=== PATIENT | female | born 1955 | race Caucasian/White ===

== ENCOUNTER 2020-02-28 08:16 | Outpatient (CLI) | payer OTHER, SELFPAY ==
--- NOTE | 2020-02-28 11:00 | NEURO_ITS ---
Patient Number: [id number] Impression: # Complains of numbness of hands. # Bilateral Carpal Tunnel Syndrome, left more than right. # No ulnar neuropathy. # Normal needle/EMG exam. # Clinical correlation recommended. Nerve Conduction Studies Anti Sensory Summary Table Stim Site NR Peak (ms) P-T Amp (?V) Site1 Site2 Delta-P (ms) Dist (cm) Amaury (m/s) Left Median Anti Sensory (2-3nd Digit) Wrist 3.5 25.8 Wrist 2-3nd Digit 3.5 14.0 40 Wrist 3.6 33.1 Wrist 2-3nd Digit 3.5 14.0 40 Right Median Anti Sensory (2-3nd Digit) Wrist 3.3 17.9 Wrist 2-3nd Digit 3.3 14.0 42 Wrist 3.4 33.3 Wrist 2-3nd Digit 3.3 14.0 42 Left Radial Anti Sensory (Base 1st Digit) Wrist 1.9 10.3 Wrist Base 1st Digit 1.9 0.0 Right Radial Anti Sensory (Base 1st Digit) Wrist 1.9 12.5 Wrist Base 1st Digit 1.9 0.0 Left Ulnar Anti Sensory (5th Digit) Wrist 2.3 51.8 Wrist 5th Digit 2.3 14.0 61 Right Ulnar Anti Sensory (5th Digit) Wrist 2.3 48.8 Wrist 5th Digit 2.3 14.0 61 Motor Summary Table Stim Site NR Onset (ms) O-P Amp (mV) Site1 Site2 Delta-0 (ms) Dist (cm) Amaury (m/s) Left Median Motor (Abd Poll Brev) Wrist 3.8 2.1 Elbow Wrist 4.2 24.0 57 Elbow 8.0 1.8 Right Median Motor (Abd Poll Brev) Wrist 3.4 3.7 Elbow Wrist 4.5 25.0 56 Elbow 7.9 3.2 Left Ulnar Motor (Abd Dig Minimi) Wrist 2.0 6.3 A Elbow Wrist 4.5 27.0 60 A Elbow 6.5 4.9 Right Ulnar Motor (Abd Dig Minimi) Wrist 2.3 5.1 A Elbow Wrist 4.3 26.0 60 A Elbow 6.6 4.4 F Wave Studies NR F-Lat (ms) L-R F-Lat (ms) Left Median (Mrkrs) (Abd Poll Brev) 26.78 0.20 Right Median (Mrkrs) (Abd Poll Brev) 26.58 0.20 Left Ulnar (Mrkrs) (Abd Dig Min) 25.80 1.07 Right Ulnar (Mrkrs) (Abd Dig Min) 26.88 1.07 EMG Side Muscle Nerve Root Ins Act Fibs Amp Dur Recrt Comment Right 1stDorInt Ulnar C8-T1 Nml Nml Nml Nml Nml Right Ext Indicis Radial (Post Int) C7-8 Nml Nml Nml Nml Nml Right Ext Digitorum Radial (Post Int) C7-8 Nml Nml Nml Nml Nml Right BrachioRad Radial C5-6 Nml Nml Nml Nml Nml Right PronatorTeres Median C6-7 Nml Nml Nml Nml Nml Right Abd Poll Brev Median C8-T1 Nml Nml Nml Nml Nml Left 1stDorInt Ulnar C8-T1 Nml Nml Nml Nml Nml Left Ext Indicis Radial (Post Int) C7-8 Nml Nml Nml Nml Nml Left Ext Digitorum Radial (Post Int) C7-8 Nml Nml Nml Nml Nml Left BrachioRad Radial C5-6 Nml Nml Nml Nml Nml Left PronatorTeres Median C6-7 Nml Nml Nml Nml Nml Left Abd Poll Brev Median C8-T1 Nml Nml Nml Nml Nml Right ABD Dig Min Ulnar C8-T1 Nml Nml Nml Nml Nml Left ABD Dig Min Ulnar C8-T1 Nml Nml Nml Nml Nml Right [place] Radial C7-8 Nml Nml Nml Nml Nml Right Brachialis Musculocut C5-6 Nml Nml Nml Nml Nml Left [place] Radial C7-8 Nml Nml Nml Nml Nml Left Brachialis Musculocut C5-6 Nml Nml Nml Nml Nml MTDD
== END 2020-02-28 08:17 | disposition home or self-care (01) ==
PROVIDERS: PCP Internal Medicine; Visit Provider Internal Medicine
DX: G56.03 Carpal tunnel syndrome, bilateral upper limbs (principal)
CPT/HCPCS: 95886; 95911

== ENCOUNTER 2021-11-02 23:08 | Emergency (ER) | payer MEDICARE, OTHER, SELFPAY ==
--- NOTE | ~2021-11-02 | CT_ITS ---
EXAMINATION: CTA chest PE protocol DATE: 11/03/2021 01:33 INDICATION: Left-sided chest pain TECHNIQUE: Computed tomography angiography (CTA) of the chest was performed with 100 mL Omnipaque-350 intravenous contrast timed to evaluate the pulmonary arteries. Coronal maximum intensity projection 3D-reconstructions were created by the technologist. Automated exposure control and iterative reconst ruction technique were employed. Exam dose: 256.43 mGy-cm total exam DLP. COMPARISON: 11/02/2021 2 view chest FINDINGS: There is diagnostic contrast enhancement of the pulmonary arteries and no evidence of pulmo nary embolism. Status post sternotomy. There is atherosclerotic calcification of the thoracic aorta, great vessels and coronary arteries. No thoracic aortic aneurysm. Normal heart size. No pericardial or pleural effusion. No hilar or mediastinal mass lesion or lymphadenopathy. Normal morphology of the adrenal glands. Status post cholecystectomy. Approximately 1.3 cm upper pole left renal probable cyst No pulmonary consolidation or pulmonary mass lesion. Scattered atelectasis. IMPRESSION: No evidence of pulmonary embolism Reviewed, dictated and finalized at [facility]. Reviewed, dictated and finalized at [facility].
--- NOTE | ~2021-11-02 | XR_ITS ---
EXAMINATION: XR chest 2V DATE: 11/03/2021 00:02 INDICATION: Chest pain TECHNIQUE: PA and lateral views of the chest were obtained. COMPARISON: Chest CT dated 11/03/2021 FINDINGS: The lungs are clear with no focal airspace opacities, pulmonary edema, pleural effusion or pneumothor ax. The cardiomediastinal silhouette is normal. Cholecystectomy clips in right upper quadrant. Median sternotomy wires and mediastinal surgical clips are seen, likely from prior coronary artery bypass g rafting. Additional surgical clips in the right infraclavicular region. IMPRESSION: 1. No acute cardiopulmonary disease. Reviewed, dictated and finalized at [facility].
--- NOTE | 2021-11-02 23:09 | ECG_ITS ---
Measurements Intervals [place] Rate: 61 P: 74 PA: 195 QRS: 64 QRSD: 93 T: 60 QT: 443 QTc: 448 Interpretive Statements SINUS RHYTHM BASELINE ARTIFACT- I, II, AVR NORMAL ECG Electronically Signed On 11-03-2021 6:23:33 CDT by Louie Ochoa D.O.
[2021-11-02 23:29] LABS: Basophils Absolute Auto 0.1 K/mm3 (0.0-0.1); Basophils Percent Auto 0.5 % (0.2-1.2); Eosinophils Absolute Auto 0.4 K/mm3 (0-0.3); Eosinophils Percent Auto 3.8 % (0-4.4); Hematocrit 40.3 % (37.0-47.0); Hemoglobin 13.2 g/dL (12.0-15.0); Immature Granulocyte Absolute 0.03 K/mm3 (0.00-0.031); Immature Granulocyte Percent A 0.3 % (0-0.5); Lymphocytes Absolute Auto 3.94 K/mm3 (0.9-3.2); Lymphocytes Percent Auto 34.7 % (18.3-44.2); Mean Corpuscular HGB Conc 32.8 g/dl (32-36); Mean Corpuscular Hemoglobin 30.3 pg (26-34); Mean Corpuscular Volume 92.6 fl (80-100); Mean Platelet Volume 11.2 fl (7.4-10.4); Monocytes Absolute Auto 0.9 K/mm3 (0.1-0.6); Monocytes Percent Auto 7.5 % (2.6-8.5); Neutrophils Percent Auto 53.2 % (45.5-73.1); Platelet Count Result 193 k/mm3 (150-375); Red Blood Count 4.35 M/mm3 (4.2-5.4); Red Cell Distribution Width 13.4 % (11.5-14.5); White Blood Count 11.4 K/mm3 (4.5-10.0)
[2021-11-02 23:33] VITALS: BP 202/98; PULSE 62; RESP 14; O2SAT 96
[2021-11-02 23:37] VITALS: PULSE 62
[2021-11-02 23:39] LABS: Alanine Aminotransferase 15 U/L (6-35); Albumin Level 4.3 g/dL (3.5-5.1); Alkaline Phosphatase 93 U/L (38-126); Anion Gap 3 mmol/L (8-16); Aspartate Amino Transferase 23 U/L (14-36); Bilirubin,Total 0.3 mg/dL (0.2-1.3); Blood Urea Nitrogen 23 mg/dL (7-17); Carbon Dioxide 26 mmol/L (22-30); Chloride 109 mmol/L (98-107); Estimated CRCL calculation 73 ml/min; Estimated Glomerular Filt Rate > 60; Glucose 101 mg/dL (65-110); INR 0.9; Lipase 255 U/L (23-300); Potassium 4.1 mmol/L (3.4-5.0); Prothrombin Time 12.1 Seconds (11.1-14.7); Sodium 138 mmol/L (137-145)
[2021-11-02 23:40] LABS: Partial Thromboplastin Time 34.5 SECONDS (22.3-36.8)
[2021-11-02 23:50] LABS: Troponin I < 0.012 ng/mL (0.000-0.034)
--- NOTE | 2021-11-03 00:36 | ED.CHESTPAIN ---
HPI - Chest Pain General Chief Complaint: Chest Pain Stated Complaint: chest pain Time Seen by Provider: 11/02/21 23:19 History of Present Illness HPI narrative: 66-year-old female presented to the emergency department for evaluation of left lower rib pain. Patient states over the last 2 to 3 days she has had increased rib pain with some associated shortness of breath. Patient states that the rib pain is constant and does not worsen or improve with movement or rest. Patient does have a history of peripheral vascular disease. Patient has 3 stents in her heart with the most recent being approximately 10 years ago. Patient reports she does have left calf pain as well, 2 to 3 days ago. Denies any prior history of PE or DVT. Patient denies any falls or injuries Related Data Allergies Allergy/AdvReac Type Severity Reaction Status Date / Time No Known Allergies Allergy Verified 11/02/21 23:38 Review of Systems Review of Systems: CONSTITUTIONAL: Denies fever, chills, or sweats. EYES: Denies visual changes, redness, or discharge. ENT: Denies rhinorrhea, congestion, sore throat, or otalgia. CARDIOVASCULAR: See HPI RESPIRATORY: Denies cough or dyspnea. GASTROINTESTINAL: Denies abdominal pain, nausea, vomiting, or diarrhea. GENITOURINARY: Denies dysuria or hematuria. SKIN: Denies rash or itching. MUSCULOSKELETAL: Denies back pain, joint pain, or myalgia. NEUROLOGIC: Denies headache, numbness, or weakness. ON LICENSE OF [facility] Family History Family History (Updated 11/28/15 @ 23:19 by DOCTOR UNKNOWN) Sibling Family history of elevated blood lipids Family history of diabetes mellitus in first degree relative Family history of malignant neoplasm of cervix Family history of coronary artery disease, Onset Age: 60 Family history of heart disease in male family member before age 55 Patient's sister is Father Family history of heart disease in male family member before age 55 Grandparent Diabetes mellitus Social History Social History Second hand tobacco smoke exposure: No Smoking end date: 05/02/97 Alcohol intake: current Exam Narrative: APPEARANCE: Well appearing, no pain, no distress, well-nourished. HEAD: normocephalic, atraumatic. EYES: PERRLA/EOMI, conjunctivae clear. NOSE: Normal no drainage THROAT: Pharynx clear, no exudate. NECK: Supple. No adenopathy, no masses. RESPIRATORY: Airway patent, respirations nonlabored. Clear to auscultation bilaterally, no rales, rhonchi, wheezing. CARDIOVASCULAR: Regular rate and rhythm without murmurs rubs or gallops. ABDOMINAL: Soft, nontender, nondistended, normal bowel sounds MUSCULOSKELETAL: Moves all extremities. Strength/ROM intact, No edema, No calf tenderness. NEURO: Alert. Cranial nerves II through XII intact. Grossly intact SKIN: Warm, dry. Normal Color Course Course Emergency Course: EKG showed no evidence of acute STEMI. Patient's blood pressure did improve during her stay. Patient's serial troponins were negative. CTA showed no evidence of acute pulmonary embolism. Patient was updated on the results of her work-up and informed to have close follow-up with her primary care physician. All questions and concerns were addressed. Patient was comfortable with the plan for discharge and close follow-up. Vital Signs Vital signs: Vital Signs Pulse Rate 62 11/02/21 23:33 Respiratory Rate 14 11/02/21 23:33 Blood Pressure 202/98 H 11/02/21 23:33 Pulse Oximetry 96 11/02/21 23:33 Oxygen Delivery Room Air 11/02/21 23:33 Pulse Rate 95 11/03/21 03:12 Respiratory Rate 19 11/03/21 03:12 Blood Pressure 189/70 H 11/03/21 03:12 Pulse Oximetry 100 11/03/21 03:12 Oxygen Delivery Room Air 11/02/21 23:33 MDM - Chest Pain Lab Data Attestation: I reviewed the patient's lab results. Result diagrams: 11/02/21 23:21 11/02/21 23:21 Labs: Lab Results 11/02/21 11/02/21 11/02/21 Range/Units 23:2
[2021-11-03 02:29] LABS: Troponin I < 0.012 ng/mL (0.000-0.034)
[2021-11-03 03:12] VITALS: BP 189/70; PULSE 95; RESP 19; O2SAT 100
== END 2021-11-03 03:11 | disposition home or self-care (01) ==
PROVIDERS: Emergency Provider Emergency Medicine; PCP Internal Medicine
DX: R07.89 Other chest pain (principal)
CPT/HCPCS: 36415; 71046; 71275; 80053; 83690; 84484; 85025; 85610; 85730; 93005; 99284; Q9967

== ENCOUNTER 2024-08-22 14:02 | Outpatient (CLI) | payer MEDICARE, SELFPAY ==
--- OUTSIDE RECORDS SUMMARY | 2024-08-22 16:00 | XMS_ITS | Referral Summary ---
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 Name Role Phone Allie Chong NP Primary Care Provider [phone] Encounters Date Type Department Care Team Description 08/03/2024 [facility] Post Discharge Follow up phone call [address] [phone] Ning Saez RN 08/02/2024 Telephone [facility] Cardiology [address] [facility] 8[address] [place] [address] [place] [phone] Ana Waller 07/31/2024 1:00 PM CDT Office Visit [facility] Stroke [address] [facility] [address] [place] [address] Garfield Larsen NP Cerebrovascular accident (CVA), unspecified mechanism (HCC) (Primary Dx); Stroke-like episode; Syncope and collapse; Episode of shaking; At risk for obstructive sleep apnea; Insomnia, unspecified type; Hospital discharge follow-up 07/25/2024 1:53 PM CDT - 07/26/2024 6:24 PM CDT Emergency [address] [phone] Mitch Elizabeth MD Blustein, Erica C., MD Holder, Phil Brasher MD Stroke-like episode (Primary Dx); Sinus bradycardia Discharge Disposition: Discharge to home or self care from Last 3 Months Allergies No known active allergies Medications ezetimibe (ZETIA) 10 mg tablet 8 Active carvedilol (COREG) 12.5 mg tablet Take 1 tablet (12.5 mg total) by mouth 2 (two) times a day with meals. 60 tablet 8 Active rosuvastatin (CRESTOR) 20 mg tablet Take 1 tablet (20 mg total) by mouth daily. 30 tablet 8 Active clopidogrel (PLAVIX) 75 mg tabletIndications:m yocardial infarction prevention Take 1 tablet (75 mg total) by mouth daily. 30 tablet [address] (CYMBALTA) 60 mg capsuleIndications: Chronic Musculoskeletal Pain Take 1 capsule (60 mg total) by mouth nightly. 30 capsule 8 Active losartan (COZAAR) 100 mg tablet Take 1 tablet (100 mg total) by mouth daily 5 026 Active nicotine (NICODERM CQ) 21 mgIndications:Nicot ine [place] [facility] 1 patch on the skin daily for 24 hours 5 025 Active losartan (COZAAR) 25 mg tablet Take 1 tablet (25 mg total) by mouth daily. 30 tablet 8 025 Discontin ued(Stop Taking at Discharge ) folic acid (FOLVITE) 1 mg tablet Take 1 tablet (1 mg total) by mouth daily. Take one tab daily 30 tablet 3 8 025 Discontin ued(Stop Taking at Discharge ) Active Problems Problem Noted Date Diagnosed Date Stroke-like episode 07/30/2024 Sinus bradycardia 07/26/2024 Hypertriglyceridemia 07/26/2024 Acute ischemic right frontal stroke 07/25/2024 07/25/2024 Occlusion of right common carotid artery 025 07/25/2024 Dyslipidemia, goal LDL below 70 07/25/2024 CAD (coronary artery disease) 07/25/2024 Rheumatoid arthritis of [facility] sites with negative rheumatoid factor 03/17/2018 Overview (03/17/2018): MCP, PIP joints, MTP joints, elbows, knees AM stiffness ~2 hours Ibuprofen some benefit Avise (03/03/18): neg Xray bilat hands (03/08/18): wnl Xray bilat feet (03/08/18): mild OA changes Xray SI joints (03/08/18): moderate degenerative changes Xray L-spine (03/08/18): mild/mod spondylosis US left hand/wrist (03/10/18): Mild/moderate effusions and power doppler on examination which will have to be correlated clinically. Grade 1 effusion and grade 2 power doppler in the 2nd and 3rd PIP joints. Grade 1 effusion and grade 1 power doppler in the long view of the wrist, radial/scaphoid joint, and 4th MCP joint. Mild synovial thickening in the 3rd-5th MCP joints and 3rd PIP joint. Assessment & Plan (03/17/2018 4:57 PM GLOBAL COMPENSATION DIRECTOR): This is based on pain and stiffness involving the MCP, PIP joints, MTP joints, elbows, and knees associated with morning stiffness for approximately 2 hours. Serology is unremarkable although the ultrasound of the left hand and wrist does reveal mild to moderate inflammatory changes. X-ray of the bilateral hands were unremarkable. X-ray of the feet reveals some mild degenerative changes. X-ray of her SI joints reveal moderate degenerative changes. X-ray of her lumbar spine reveals mild to moderate spondylosis. Will initiate methotrexate 12.5 mg p.o. weekly and folic acid 1 mg daily. She was instructed not to start this until she completes her antibiotics for her recently diagnosed pyelonephritis for which she has over 3 weeks left on the antibiotics. Follow-up 2 months. Essential hypertension 03/13/2018 Assessment & Plan (03/14/2018 4:46 PM GLOBAL COMPENSATION DIRECTOR): History of hypertension - Continue home losartan, carvedilol Assessment & Plan (03/13/2018 11:41 PM GLOBAL COMPENSATION DIRECTOR): History of hypertension - Continue home losartan, carvedilol Pyelonephritis 03/03/2018 Assessment & Plan (03/14/2018 4:46 PM GLOBAL COMPENSATION DIRECTOR): Patient presents with stabbing back pain, CVA tenderness, UA with 21-[address] shows large stone in R kidney, bilateral hydronephrosis, fat stranding. Lactate negative. - Discharge with 14-day course of Bactrim 800-160 PO BID - Outpatient Urology followup for nephrolithiasis Assessment & Plan (03/13/2018 11:40 PM GLOBAL COMPENSATION DIRECTOR): Patient presents with stabbing back pain, CVA tenderness, UA with 21-[address] shows large stone in R kidney, bilateral hydronephrosis, fat stranding. Lactate negative. - Continue ceftriaxone - Follow-up blood and urine cultures, uric acid, phosphate - Urology consult for nephrolithiasis Assessment & Plan (03/03/2018 10:06 AM CDT): She does have some low back pain involving the lumbar spine. She denies any significant SI joint pain and there is no tenderness on exam today. Obtain x-ray of her lumbar spine as well as her SI joints to evaluate for inflammatory changes. Resolved Problems Problem Noted Date Diagnosed Date Resolved Date Polyarthralgia 03/03/2018 03/17/2018 Overview (03/12/2018): MCP, PIP joints, MTP joints, elbows, knees AM stiffness ~2 hours Ibuprofen some benefit Avise (03/03/18): neg Xray bilat hands (03/08/18): wnl Xray bilat feet (03/08/18): mild OA changes Xray SI joints (03/08/18): moderate degenerative changes Xray L-spine (03/08/18): mild/mod spondylosis US left hand/wrist (03/10/18): Mild/moderate effusions and power doppler on examination which will have to be correlated clinically. Grade 1 effusion and grade 2 power doppler in the 2nd and 3rd PIP joints. Grade 1 effusion and grade 1 power doppler in the long view of the wrist, radial/scaphoid joint, and 4th MCP joint. Mild synovial thickening in the 3rd-5th MCP joints and 3rd PIP joint. Is noted patient is on prednisone 10 mg daily at time of examination Assessment & Plan (03/14/2018 4:46 PM GLOBAL COMPENSATION DIRECTOR): Patient has a history of polyarthralgia, affecting multiple joints. - Continue Duloxetine - PRN Tylenol - PRN Ibuprofen Assessment & Plan (03/13/2018 11:40 PM GLOBAL COMPENSATION DIRECTOR): Patient has a history of polyarthralgia, affecting multiple joints. - Continue Duloxetine - PRN Tylenol - PRN Ibuprofen Assessment & Plan (03/03/2018 10:04 AM CDT): She reports history of joint complaints mainly in the MCP and PIP joints, MTP joints, ankles, elbows, and knees. Symptoms are constant although somewhat improved with activity. She does have morning stiffness for a couple hours and at times never fully resolves. She denies any significant swelling other than occasional swelling in the hands with the left worse than the right. She is using ibuprofen up to 3 times a day as needed with some benefit. She does have some dryness of the eyes and the mouth as well as some fatigue although no other systemic complaints. She does report a daughter with suspected psoriasis although denies any other significant family history. Based on her joint distribution as well as the amount of morning stiffness she is having I suspect an inflammatory arthritis particularly rheumatoid arthritis. She does have some low back pain as well although this is more so involving her lumbar spine and not her SI joints although with the family history of psoriasis a spondyloarthritis such as psoriatic arthritis remains possible. She also likely has some degree of mechanical pain as well particularly in her lumbar spine. Exam reveals possible swelling in the left 3rd PIP joint although no other significant swelling and other than some mild tenderness in the left 2nd PIP and right foot she really has no other significant joint tenderness. Obtain labs as below. Obtain x-rays as below. Obtain ultrasound of the left hand and wrist to evaluate for inflammatory changes. Continue ibuprofen over the counter up to 3 times a day as needed as this does offer some benefit. Follow-up in 2 weeks. Immunizations Immunization Administration Dates Next Due Influenza, Quadrivalent, Spl it, Preservative Free, Intramuscular 03/14/2018 Social History Tobacco Use Types Packs/Day Years Used Date Smoking Tobacco: Former Cigarettes 1.5 15 Smokeless Tobacco: Never Comments:Quit about a year a go Alcohol Use Standard Drinks/Week Comments No 0 (1 standard drink = 0.6 oz pur e alcohol) PHQ-2 Answer Date Recorded PHQ-2 Total Score (If total score is 3 or more points, staff should administer the PHQ-9) 0 07/26/2024 Personal Safety Answer Date Recorded Have you ever been in or are you currently in a harmful physical or emotional relationship or is someone making you feel afraid or unsafe? Denies 07/25/2024 Comments No Sex and Gender Information Value Date Recorded Sex Assigned at Not on file Legal Sex Female 12:36 AM GLOBAL COMPENSATION DIRECTOR Gender Identity Not on file Sexual Orientation Not on file Last Filed Vital Signs Vital Sign Reading Time Taken Comments Blood Pressure 122/80 07/31/2024 1:08 PM CDT Pulse 71 07/31/2024 1:08 PM CDT Temperature 36.8 C (98.2 F) 07/26/2024 11:27 AM CDT Respiratory Rate 18 07/26/2024 11:27 AM CDT Oxygen Saturation 97% 07/26/2024 11:27 AM CDT Inhaled Oxygen Concentration - - Weight 78 kg (172 lb) 07/31/2024 1:08 PM CDT Height 157.5 cm (5' 2 ) 07/31/2024 1:08 PM CDT Body Mass Index 31.46 07/31/2024 1:08 PM CDT Plan of Treatment Not on file Procedures Procedure Name Priority Date/Time Associated Diagnosis Comments TRANSTHORACIC ECHO (TTE) COMPLETE W DOPPLER/CF W CONTRAST Pending Discharge 07/26/2024 4:54 PM CDT LIPOPROTEIN A (LPA) STAT 07/26/2024 1 1:10 AM CDT HEMOGLOBIN A1C STAT 07/26/2024 11:10 AM CDT LIPID PANEL STAT 07/26/2024 11:10 AM CDT VERIFY NOW CLOPIDOGREL STAT 07/26/2024 11:10 AM CDT NEGATIVE STRIPPER EVALUATE AND TREAT Routine 07/26/2024 9:39 AM CDT NEGATIVE STRIPPER EVALUATE AND TREAT Routine 07/26/2024 9:39 AM CDT DRUGS OF ABUSE SCREEN, URINE WITHOUT CONFIRMATION Routine 07/26/2024 6:09 AM CDT URINALYSIS AND REFLEX TO MICROSCOPIC AND CULTURE Routine 07/26/2024 6:09 AM CDT EGFR Routine 07/25/2024 8:52 PM CDT PHOSPHORUS Routine 07/25/2024 8:52 PM CDT MAGNESIUM Routine 07/25/2024 8:52 PM CDT CBC WITHOUT DIFFERENTIAL Routine 07/25/2024 8:52 PM CDT BASIC METABOLIC PANEL Routine 07/25/2024 8:52 PM CDT VERIFY NOW CLOPIDOGREL STAT 07/25/2024 3:44 PM CDT TROPONIN I HIGH-SENSITIVITY 2-HOUR Timed 07/25/2024 3:23 PM CDT MRA BRAIN CAROTIDS W WO CONTRAST ED 07/25/2024 3:17 PM CDT MRI BRAIN HYPERACUTE STROKE W WO CONTRAST Critical/Life-Th reatening 07/25/2024 3:17 PM CDT ECG 12-LEAD STAT 07/25/2024 2:10 PM CDT [facility] CRITICAL CARE ILL/INJURED PATIENT INIT 30-74 MIN Routine 07/25/2024 2:[address] STROKE PROTOCOL WO CONTRAST Critical/Life-Th reatening 07/25/2024 1:51 PM CDT POCT PROTHROMBIN TIME, WHOLE BLOOD Routine 07/25/2024 1:48 PM CDT POCT GLUCOSE DEVICE Routine 07/25/2024 1 :47 PM CDT EGFR STAT 07/25/2024 1:45 PM CDT DIFFERENTIAL AUTO STAT 07/25/2024 1:4 5 PM CDT TROPONIN I HIGH-SENSITIVITY SERIES (BASELINE, 2HR, 4HR, 6HR) STAT 07/25/2024 1:45 PM CDT APTT STAT 07/25/2024 1:45 PM CDT COMPREHENSIVE METABOLIC PANEL STAT 07/25/2024 1:45 PM CDT CBC WITH AUTO DIFFERENTIAL STAT 07/25/2024 1:45 PM CDT HEPATITIS C AB W/REFL TO HCV RNA, QN, PCR (REFL) Routine 03/03/2018 10:07 AM CDT Polyarthralgia Fatigue, unspecified type from Last 3 Months or Most Recently Relevant to Health Maintenance Results * TRANSTHORACIC ECHO (TTE) COMPLETE W DOPPLER/CF W CONTRAST (07/26/2024 4:54 PM CDT) Anatomical Region Laterality Modality Ultrasound 07/26/2024 3:41 PM CDT Narrative 07/26/2024 5:10 PM CDT [facility] [place] [address] Transthoracic Echocardiographic Report Patient Name: ETHEL HOBSON M : 1955 (68y 10m) Gender: F Study Date: 07/26/2024 03:41:30 PM Ht(Inch): 62 Wt(Lb): 169.09 BSA: 1.83 Shot Examiner: Ky Thompson RDCS Location: [id number] Order Provider: PHIL BURDICK Heart Rate: 62 BMI: 30.92 BP: 131 / 60 Ref Provider: PHIL BURDICK Report amended on 2024-07-26 at 17:10:39 CDT: Added/Modified: Conclusions [MODIFIED]: [MODIFIED TEXT] Right Ventricular Findings: Normal right ventricular size. Normal right ventricular systolic function. Right Ventricle [MODIFIED]: [MODIFIED] RV Function - TAPSE (Evidence based): Normal Function (>=1.6cm) Previously Signed by:Ana Ortega MD 2024-07-26 17:09:34 CDT End of Addendum PROCEDURES: Echocardiographic Report: Transthoracic complete echo with strain imaging and contrast, 2D, spectral and tissue Doppler, color flow Doppler, M-mode. Contrast: Contrast Enhancement was Employed: After initial imaging due to sub- optimal quality related to co-morbidity defined by patient's body habitus and due to suboptimal image quality with inadequate visualization of at least 2 of 16 LV wall segments in any view after initial imaging. Perflutren contrast was administered using the volume necessary to obtain adequate images. 2.3 ml Optison Administered, (0.7 ml wasted). INDICATIONS: Stroke. CONCLUSIONS: 1. Normal left ventricular size based on volume index. Normal LV wall thickness. Normal left ventricular systolic function. The Ejection Fraction (Mills's) is measured at 63 %. Grade I diastolic dysfunction (normal LA pressure). The average global longitudinal strain is borderline. 2. Normal right ventricular size. Normal right ventricular systolic function. 3. The left atrium is normal in size. 4. The right atrium is normal in size. 5. There is no significant valvular heart disease. ATTESTATION: I have personally reviewed and interpreted this study without fellow or resident. - DISCLAIMER: The study images and the final report will be retained in the patient chart by the Echo Laboratory for the legally required time period. This chart constitutes the legal record of any testing performed. FINDINGS: Left Ventricle: Normal left ventricular size based on volume index. Normal LV wall thickness. Normal left ventricular systolic function. The Ejection Fraction (Mills's) is measured at 63 %. Grade I diastolic dysfunction (normal LA pressure). The average global longitudinal strain is borderline. The LV global strain is: -16.5 %. Myocardial cleft noted at the interventricular septum (normal variant). Right Ventricle: Normal right ventricular size. Normal right ventricular systolic function. Left Atrium: The left atrium is normal in size. Right Atrium: The right atrium is normal in size. Mitral Valve: Normal mitral valve structure. No mitral regurgitation. No stenosis present. Aortic Valve: Normal trileaflet aortic valve. No aortic regurgitation. No aortic valve stenosis. The mean transaortic gradient is 3 mmHg. The aortic valve area by the continuity equation (using VTI) is 2 cm2. Aortic valve dimensionless index is 0.72. Tricuspid Valve: Normal tricuspid valve structure. No tricuspid regurgitation. No tricuspid valve stenosis. Pulmonic Valve: Normal pulmonic valve structure. No pulmonic regurgitation. No pulmonic valve stenosis present. Pericardium: Normal pericardium without pericardial effusion. Aorta: Normal aortic root size at sinuses of Valsalva. Normal aortic root size when indexed. The ascending aorta is normal in size when indexed. IVC: The IVC was <2.1 cm and collapsibility >50%. (est. RA pressure 0-5 mmHg). PASP: Normal estimated pulmonary artery systolic pressure. Rhythm: Normal Sinus rhythm was seen during the study. MEASUREMENTS: 2D/MM Value Range Doppler Value Range LVIDd 2D 3.67 cm [ 3.80 - 5.20 ] AV Peak Amaury 1.0 m/s [ 1.0 - 1.7 ] LVIDs 2D 2.52 cm [ 2.20 - 3.50 ] AV Peak PG 4.00 mmHg IVSd 2D 0.62 cm [ 0.60 - 0.90 ] AV Mean PG 3 mmHg LVPWd 2D 0.59 cm [ 0.60 - 0.90 ] AV VTI 23.7 cm LV Thickness Ratio 1.1 LVOT Peak Amaury 0.8 m/s [ 0.7 - 1.1 ] LV FS 2D 31.25 % [ 27.00 - 45.00 ] LVOT Peak PG 2.56 mmHg LV Mass 2D 57.75 g LVOT Mean PG 1 mmHg LV Mass Index 2D 31.56 g/m2 LVOT VTI 17.1 cm RWT 0.32 LVOT Diam 1.88 cm EDV Mod BP 58.32 ml [ 46.00 - 106.00 ] CHENCHO VTI 2.00 cm2 LV EDV Index 31.87 ml/m2 LVOT/AV VTI 0.72 - Dimensionless index (DVI) ESV Mod BP 21.32 ml [ 14.00 - 42.00 ] MV E Peak Amaury 0.5 m/s [ 0.6 - 1.3 ] EF Mod BP 63 % [ 54 - 74 ] MV A Peak Amaury 0.8 m/s [ 1.0 - 1.2 ] LV GLS -16.5 % [ -25.0 - -18.0 ] MV E/A 0.6 ratio [ 0.8 - 1.5 ] LA Length 4C 4.94 cm MV Decel Time 219.69 msec [ 104.00 - 258.00 ] LA Length 2C 4.41 cm Med E` Amaury 5.9 cm/sec [ 8.0 - 25.0 ] LA Volume BP 19.73 ml Lat E` Amaury 7.9 cm/sec [ 10.0 - 25.0 ] LA Volume Index 10.78 ml/m2 [ 16.00 - 34.00 ] Average E/E` 7.25 RV Base Dimen 2D 2.3 cm [ 2.5 - 4.2 ] RV S` 6.08 cm/sec TAPSE 1.07 cm [ 1.71 - 5.00 ] TR Peak Amaury 2.2 m/s [ 1.0 - 2.8 ] RA Volume 15.18 ml TR Peak PG 19.4 mmHg RA Volume Index 8.30 ml/m2 PV Peak Amaury 0.7 m/s [ 0.4 - 0.8 ] AoR Diam 2D 2.91 cm [ 2.70 - 3.70 ] PV Peak PG 1.96 mmHg Ao Root Index 1.59 cm/m2 [ 1.00 - 2.00 ] Asc Ao Diam 2D 3.29 cm Asc Ao Index 1.80 cm/m2 Electronically Signed By: Ana Ortega MD 2024-07-26 17:09:34 CDT Electronically Amended By: Ana Ortega MD 07/26/2024 5:10:39 PM CDT [ADDENDUM] Procedure Note Ana Ortega MD - 07/26/2024 [facility] [place] [address] Transthoracic Echocardiographic Report Patient Name: ETHEL HOBSON M : 1955 (68y 10m) Gender: F Study Date: 07/26/2024 03:41:30 PM Ht(Inch): 62 Wt(Lb): 169.09 BSA: 1.83 Shot Examiner: Ky Thompson [facility] Location: [id number] Order Provider:PHIL BURDICK Heart Rate: 62 BMI: 30.92 BP: 131 / 60 Ref Provider: PHIL BURDICK Report amended on 2024-07-26 at 17:10:39 CDT: Added/Modified: Conclusions [MODIFIED]: [MODIFIED TEXT] Right Ventricular Findings: Normal right ventricular size.Normal right ventricular systolic function. Right Ventricle [MODIFIED]: [MODIFIED] RV Function - TAPSE (Evidence based): Normal Function(>=1.6cm) Previously Signed by:Ana Ortega MD 2024-07-26 17:09:34 CDT End of Addendum PROCEDURES: Echocardiographic Report: Transthoracic complete echo with strain imagingand contrast, 2D, spectral and tissue Doppler, color flow Doppler, M-mode. Contrast: Contrast Enhancement was Employed: After initial imaging due tosub- optimal quality related to co-morbidity defined by patient's body habitus and dueto suboptimal image quality with inadequate visualization of at least 2 of 16 LV wallsegments in any view after initial imaging. Perflutren contrast was administered using thevolume necessary to obtain adequate images. 2.3 ml Optison Administered, (0.7 mlwasted). INDICATIONS: Stroke. CONCLUSIONS: 1. Normal left ventricular size based on volume index. Normal LV wallthickness. Normal left ventricular systolic function. The Ejection Fraction (Mills's) ismeasured at 63 %. Grade I diastolic dysfunction (normal LA pressure). The average globallongitudinal strain is borderline. 2. Normal right ventricular size. Normal right ventricular systolicfunction. 3. The left atrium is normal in size. 4. The right atrium is normal in size. 5. There is no significant valvular heart disease. ATTESTATION: I have personally reviewed and interpreted this study without fellow orresident. - DISCLAIMER: The study images and the final report will be retained in the patientchart by the Echo Laboratory for the legally required time period. This chart constitutesthe legal record of any testing performed. FINDINGS: Left Ventricle: Normal left ventricular size based on volume index. NormalLV wall thickness. Normal left ventricular systolic function. The EjectionFraction (Mills's) is measured at 63 %. Grade I diastolic dysfunction (normal LA pressure).The average global longitudinal strain is borderline. The LV global strain is: -16.5%. Myocardial cleft noted at the interventricular septum (normal variant). Right Ventricle: Normal right ventricular size. Normal right ventricularsystolic function. Left Atrium: The left atrium is normal in size. Right Atrium: The right atrium is normal in size. Mitral Valve: Normal mitral valve structure. No mitral regurgitation. Nostenosis present. Aortic Valve: Normal trileaflet aortic valve. No aortic regurgitation. Noaortic valve stenosis. The mean transaortic gradient is 3 mmHg. The aortic valve areaby the continuity equation (using VTI) is 2 cm2. Aortic valve dimensionless indexis 0.72. Tricuspid Valve: Normal tricuspid valve structure. No tricuspidregurgitation. No tricuspid valve stenosis. Pulmonic Valve: Normal pulmonic valve structure. No pulmonicregurgitation. No pulmonic valve stenosis present. Pericardium: Normal pericardium without pericardial effusion. Aorta: Normal aortic root size at sinuses of Valsalva. Normal aortic rootsize when indexed. The ascending aorta is normal in size when indexed. IVC: The IVC was <2.1 cm and collapsibility >50%. (est. RA pressure 0-5mmHg). PASP: Normal estimated pulmonary artery systolic pressure. Rhythm: Normal Sinus rhythm was seen during the study. MEASUREMENTS: 2D/MM Value Range DopplerValue Range LVIDd 2D 3.67 cm [ 3.80 - 5.20 ] AV Peak Vel1.0 m/s [ 1.0 - 1.7 ] LVIDs 2D 2.52 cm [ 2.20 - 3.50 ] AV Peak PG4.00 mmHg IVSd 2D 0.62 cm [ 0.60 - 0.90 ] AV Mean PG3 mmHg LVPWd 2D 0.59 cm [ 0.60 - 0.90 ] AV VTI23.7 cm LV Thickness Ratio 1.1 LVOT Peak Vel0.8 m/s [ 0.7 - 1.1 ] LV FS 2D 31.25 % [ 27.00 - 45.00 ] LVOT Peak PG2.56 mmHg LV Mass 2D 57.75 g LVOT Mean PG1 mmHg LV Mass Index 2D 31.56 g/m2 LVOT VTI17.1 cm RWT 0.32 LVOT Diam1.88 cm EDV Mod BP 58.32 ml [ 46.00 - 106.00 ] CHENCHO VTI2.00 cm2 LV EDV Index 31.87 ml/m2 LVOT/AV VTI0.72 - Dimensionless index (DVI) ESV Mod BP 21.32 ml [ 14.00 - 42.00 ] MV E Peak Vel0.5 m/s [ 0.6 - 1.3 ] EF Mod BP 63 % [ 54 - 74 ] MV A Peak Vel0.8 m/s [ 1.0 - 1.2 ] LV GLS -16.5 % [ -25.0 - -18.0 ] MV E/A0.6 ratio [ 0.8 - 1.5 ] LA Length 4C 4.94 cm MV Decel Rprm302.69 msec [ 104.00 - 258.00 ] LA Length 2C 4.41 cm Med E` Vel5.9 cm/sec [ 8.0 - 25.0 ] LA Volume BP 19.73 ml Lat E` Vel7.9 cm/sec [ 10.0 - 25.0 ] LA Volume Index 10.78 ml/m2 [ 16.00 - 34.00 ] Average E/E`7.25 RV Base Dimen 2D 2.3 cm [ 2.5 - 4.2 ] RV S`6.08 cm/sec TAPSE 1.07 cm [ 1.71 - 5.00 ] TR Peak Vel2.2 m/s [ 1.0 - 2.8 ] RA Volume 15.18 ml TR Peak PG19.4 mmHg RA Volume Index 8.30 ml/m2 PV Peak Vel0.7 m/s [ 0.4 - 0.8 ] AoR Diam 2D 2.91 cm [ 2.70 - 3.70 ] PV Peak PG1.96 mmHg Ao Root Index 1.59 cm/m2 [ 1.00 - 2.00 ] Asc Ao Diam 2D3.29 cm Asc Ao Index1.80 cm/m2 Electronically Signed By: Ana Ortega MD 2024-07-26 17:09:34 CDT Electronically Amended By: Ana Ortega MD 07/26/2024 5:10:39 PM CDT [ADDENDUM] us Phil Burdick MD CV ECHO PROCEDURES Edited Result - Final * VerifyNow clopidogrel (07/26/2024 11:10 AM CDT) [facility] VerifyNow clopidogrel 102 PRU Comment: Interpretive Data Reference interval from adults not taking Plavix is 169-356 PRU. Output is reported in Plavix reaction units (PRU). A lower PRU indicates a more complete inhibition of P2Y12 ADP receptor by drugs such as clopidogrel or prasugrel. There is no consensus regarding a cut-off value for PRU when assessing patients' sensitivity to ADP P2Y12 receptor inhibitors. Clinicians should use this information based on their interpretation of currently available evidence to individualize patient management decisions. Conditions that may produce falsely low PRU results include anemia (Hct <29%) and thrombocytopenia (platelet count <90,000/mcL). Platelet responsiveness to Plavix should not be performed within 48 hours of treatment with GPIIbIIIa inhibitors etifibatide (Integrilin) or tirofiban (Aggrastat) or within 2 weeks of treatment with abciximab (Reopro). Current interpretive data was last revised on 2017. Blood 07/26/2024 11:1 0 AM CDT 07/26/2024 11:10 AM CDT Phil Burdick MD LAB BLOOD ORDERABLES Final Result Performing Organization Address [facility] Co de Phone Number KRISTIE POPE [facility] [place] [address] * Lipoprotein a (LPa) (07/26/2024 11:10 AM CDT) [facility] Lipoprotein A 32 <75 nmol/L [place] [facility] Comment: ADDITIONAL INFORMATION Please notice that Lp(a) values are reported in molar units (nmol/L). These units are recommended by professional society guidelines and expert opinion statements. Measured results and risk thresholds are higher than those generated using mass units (mg/dL). Cardiovascular risk increases starting at 75 nmol/L. Lp(a) >=125 nmol/L is considered a risk enhancing factor by the [place] [employer]. This test has been modified from the liaison officer's instructions. Its performance characteristics were determined by [facility] in a manner consistent with CLIA requirements. This test has not been cleared or approved by the U.S. Food and Drug Administration. Test Performed by: [facility] - [address] [address] Director Of Category Management: Christie Nichols Ph.D.; CLIA# [id number] Blood 07/26/2024 11:1 0 AM CDT 07/26/2024 11:59 AM CDT Phil Burdick MD LAB BLOOD ORDERABLES Final Result Performing Organization Address City/[facility]/ZIP Co de Phone Number [facility] [place] [address] [place] [facility] * (ABNORMAL) Hemoglobin A1c (07/26/2024 11:10 AM CDT) Hgb A1C 5.8(H) 4.0 - 5.6 % Estimated Average Glucose 120 mg/dL [facility] Comment: The ADA recommends reporting an estimated Average Glucose (eAG) with all Hemoglobin A1c results using the equation derived from a study of 507 normal and diabetic adults. Minority populations were underrepresented and children were not included. (Diabetes Care 2020; 43(S1): S66-S76). The eAG is not equivalent to a fasting glucose. Blood 07/26/2024 11:1 0 AM CDT 07/26/2024 11:33 AM CDT us Phil Burdick MD LAB BLOOD ORDERABLES Final Result Performing Organization Address City/State/[facility] Co de Phone Number [facility] Department [place] [address] * (ABNORMAL) Lipid panel (07/26/2024 11:10 AM CDT) [facility] Cholesterol 140 30 - 199 mg/dL Comment: Interpretive Data Ages < or = 19 years Acceptable: <170 mg/dL Borderline high: 170-199 mg/dL High: >or= 200 mg/dL Ages > or = 20 years Desirable: <200 mg/dL Borderline high: 200-239 mg/dL High: >or= 240 mg/dL Literature References: 1. Expert Panel on Integrated Guidelines for Cardiovascular Health and Risk Reduction in Children and Adolescents. Pediatrics 2011;128:S213 2. NCEP Expert Panel. Circulation 2004;110:227 Current Interpretive Data was last revised on 2017. Triglycerides 156(H) <=149 mg/dL [facility] Comment: Interpretive Data Ages < or = 9 years Acceptable: <75 mg/dL Borderline high: 75-99 mg/dL High: >or= 100 mg/dL Ages 10 to 20 years Acceptable: <90 mg/dL Borderline high: 90-129 mg/dL High: >or= 130 mg/dL Ages > or = 20 years Desirable: <150 mg/dL Borderline high: 150-199 mg/dL High: 200-499 mg/dL Very high: >or= 499 mg/dL Literature References: 1. Expert Panel on Integrated Guidelines for Cardiovascular Health and Risk Reduction in Children and Adolescents. Pediatrics 2011;128:S213 2. NCEP Expert Panel. Circulation 2004;110:227 Current Interpretive Data was last revised on 2017. HDL 47 >=40 mg/dL [facility] Comment: Interpretive Data Ages < or = 19 years Acceptable: >45 mg/dL Borderline low: 40-45 mg/dL Low: <40 mg/dL Ages > or = 20 years Desirable: >or= 60 mg/dL Low: <40 mg/dL Literature References: 1. Expert Panel on Integrated Guidelines for Cardiovascular Health and Risk Reduction in Children and Adolescents. Pediatrics 2011;128:S213 2. NCEP Expert Panel. Circulation 2004;110:227 Current Interpretive Data was last revised on 2017. LDL, calculated 66 <=129 mg/dL [facility] Comment: Interpretive Data Ages < or = 19 years Acceptable: <110 mg/dL Borderline high: 110-129 mg/dL High: >or= 130 mg/dL Ages > or = 20 years Optimal: <100 mg/dL Near optimal: 100-129 mg/dL Borderline high: 130-159 mg/dL High: >160 mg/dL Calculated using the Simone LDL-C estimating equation. This equation was implemented on 2023. Prior to this date LDL-C was estimated using the Friedewald equation. Literature References: 1. Expert Panel on Integrated Guidelines for Cardiovascular Health and Risk Reduction in Children and Adolescents. Pediatrics 2011;128:S213 2. NCEP Expert Panel. Circulation 2004;110:227 3. Simone Rehman et al. LINCOLN Cardiol. 2020 August 30;5(5):540-548. doi: [email or web address] Current Interpretive Data was last revised on 2023. Non-HDL Cholesterol 93 mg/dL [facility] Comment: Interpretive Data Ages < or = 19 years Acceptable: <120 mg/dL Borderline high: 120-144 mg/dL High: >145 mg/dL Ages > or = 20 years When triglycerides are >200 mg/dL, Non-HDL cholesterol is a secondary target of therapy with treatment goals that are 30 mg/dL greater than the LDL cholesterol target. Literature References: 1. Expert Panel on Integrated Guidelines for Cardiovascular Health and Risk Reduction in Children and Adolescents. Pediatrics 2011;128:S213 2. NCEP Expert Panel. Circulation 2004;110:227 Current Interpretive Data was last revised on 2017. Chol/HDL ratio [address] [facility] Blood 07/26/2024 11:1 0 AM CDT 07/26/2024 11:32 AM CDT us Phil Burdick MD LAB BLOOD ORDERABLES Final Result [facility] [place] [address] * NEGATIVE STRIPPER Evaluation and Treatment (07/26/2024 9:39 AM CDT) Narrative Janneth Morin, NEGATIVE STRIPPER - 07/26/2024 9:39 AM CDT Janneth Morin NEGATIVE STRIPPER 07/26/2024 10:53 AM Speech-Language Pathology: Clinical Bedside Swallow HPI/PMH Per H&P: PMHx HTN, HLD, CAD PCI x2 on Plavix, and current 1.5 ppd smoker. She presented to the ED after waking up at home at 12:30 07/25 and noticing Left hand weakness, as she was dropping items easily with that hand. She was concerned for a stroke and presented with her who corroborated her story. LKN was last night when she went to bed at 21:00. Other Initially TNK-candidate based on Hyperacute MRI but symptoms significantly improved on re-evaluation of NIHSS prior to planned administration of TNK. SMART protocol. Pt had nursing dysphagia screening documented multiple times with both pass and fail results. Documented left facial droop. Precautions: MIRACLE Respiratory: RA Imaging: bMRI 07/25 1. Diffusion restriction in the right posterior frontal lobe without associated FLAIR signal abnormality, concerning for a hyperacute infarct. 2. 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 Better evaluation could be obtained with CTA. PLOF: Lives at home with , no prior dysphagia reported, regular diet/thin liquids at baseline. Wears upper/lower dentures. Current Diet Order: NPO General Information Ethel Hobson 07/26/24 General Observations: Alert, pleasant, at bedside Pain Score: 3 If pain >4, was RN notified? N/A Patient Stated Goal/Comments: To resume eating/drinking. Pt reported she has been drinking water with oral medications and not noticed any changes with swallowing. Does not have her dentures in hospital but is comfortable eating regular foods without them. Clinical Impression & Professional Recommendations Diet Solids Recommendation: Regular Diet Liquids Recommendations: Thin/regular Recommended Form of Medications: As tolerated (Pt reported she takes medications whole at baseline) Postural Recommendations: Upright Dysphagia Diagnosis: No suspected dysphagia, oral-pharyngeal function appears WFL Overall Clinical Impression/Additional Information: Pt reported sensation changes in left face compared to right. Oral motor/oral mechanism exam otherwise unremarkable. No overt aspiration signs or pt complaints of dysphagia with PO trials. Mastication appears timely within constraints of dentition (pt independently using water to soften hard solids as needed); no oral residue after swallows. MASA 200/200. SMART testing of speech/language/cognition completed after CSE; see additional NEGATIVE STRIPPER note this date for assessment information. Assessment Details & Results Consistencies Administered: Ice chips, Thin liquids, Purees, Solids MASA: Rivera Assessment of Swallowing Ability (MASA) Alertness: Alert Cooperation: Cooperative Auditory Comprehension: No abnormality detected Respiration: Chest clear Respiratory Rate (for swallow): Able to control breath rate for swallow Aphasia: No abnormality detected Apraxia: No abnormality detected Dysarthria: No abnormality detected Saliva: No abnormality detected Lip Seal: No abnormality detected Tongue Movement: Full range of motion Tongue Strength: No abnormality detected Tongue Coordination: No abnormality detected Gag: Hyperreflexive/no abnormality detected Palate: No abnormality detected Cough Reflex: No deficit noted Voluntary Cough: No abnormality detected Voice: No abnormality detected Trach: No trach Oral Preparation: No deficits noted Bolus Clearance: Fully cleared Oral Transit: No deficits noted Pharyngeal Phase: Immediate laryngeal elevation Pharyngeal Response: No deficits noted MASA Score: 200 Dysphagia: No dysphagia detected (178-200) Aspiration Risk: No aspiration risk (170-200) Score Interpretation: MASA score consistent with clinical impression Plan NEGATIVE STRIPPER Frequency of Services during current admission: One-time visit (Discharge from this service) NEGATIVE STRIPPER Recommendation (Add'l Services): No further NEGATIVE STRIPPER indicated Next Visit Plan:No further ST warranted Please reference care plan for treatment goals, if indicated. Discharge Summary Statement If this is the last swallow therapy visit, this serves as the discharge summary. us Phil Burdick MD NEGATIVE STRIPPER ORDERABLES Final Resu lt * NEGATIVE STRIPPER Evaluation and Treatment (07/26/2024 9:39 AM CDT) Narrative Janneth Morin, NEGATIVE STRIPPER - 07/26/2024 9:39 AM CDT Janneth Morin, NEGATIVE STRIPPER 07/26/2024 10:53 AM Speech-Language Pathology: Clinical Bedside Swallow HPI/PMH Per H&P: PMHx HTN, HLD, CAD PCI x2 on Plavix, and current 1.5 ppd smoker. She presented to the ED after waking up at home at 12:30 07/25 and noticing Left hand weakness, as she was dropping items easily with that hand. She was concerned for a stroke and presented with her who corroborated her story. LKN was last night when she went to bed at 21:00. Other Initially TNK-candidate based on Hyperacute MRI but symptoms significantly improved on re-evaluation of NIHSS prior to planned administration of TNK. SMART protocol. Pt had nursing dysphagia screening documented multiple times with both pass and fail results. Documented left facial droop. Precautions: MIRACLE Respiratory: RA Imaging: bMRI 07/25 1. Diffusion restriction in the right posterior frontal lobe without associated FLAIR signal abnormality, concerning for a hyperacute infarct. 2. 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 Better evaluation could be obtained with CTA. PLOF: Lives at home with , no prior dysphagia reported, regular diet/thin liquids at baseline. Wears upper/lower dentures. Current Diet Order: NPO General Information Ethel Rehman Amena 07/26/24 General Observations: Alert, pleasant, at bedside Pain Score: 3 If pain >4, was RN notified? N/A Patient Stated Goal/Comments: To resume eating/drinking. Pt reported she has been drinking water with oral medications and not noticed any changes with swallowing. Does not have her dentures in hospital but is comfortable eating regular foods without them. Clinical Impression & Professional Recommendations Diet Solids Recommendation: Regular Diet Liquids Recommendations: Thin/regular Recommended Form of Medications: As tolerated (Pt reported she takes medications whole at baseline) Postural Recommendations: Upright Dysphagia Diagnosis: No suspected dysphagia, oral-pharyngeal function appears WFL Overall Clinical Impression/Additional Information: Pt reported sensation changes in left face compared to right. Oral motor/oral mechanism exam otherwise unremarkable. No overt aspiration signs or pt complaints of dysphagia with PO trials. Mastication appears timely within constraints of dentition (pt independently using water to soften hard solids as needed); no oral residue after swallows. MASA 200/200. SMART testing of speech/language/cognition completed after CSE; see additional NEGATIVE STRIPPER note this date for assessment information. Assessment Details & Results Consistencies Administered: Ice chips, Thin liquids, Purees, Solids MASA: Rivera Assessment of Swallowing Ability (MASA) Alertness: Alert Cooperation: Cooperative Auditory Comprehension: No abnormality detected Respiration: Chest clear Respiratory Rate (for swallow): Able to control breath rate for swallow Aphasia: No abnormality detected Apraxia: No abnormality detected Dysarthria: No abnormality detected Saliva: No abnormality detected Lip Seal: No abnormality detected Tongue Movement: Full range of motion Tongue Strength: No abnormality detected Tongue Coordination: No abnormality detected Gag: Hyperreflexive/no abnormality detected Palate: No abnormality detected Cough Reflex: No deficit noted Voluntary Cough: No abnormality detected Voice: No abnormality detected Trach: No trach Oral Preparation: No deficits noted Bolus Clearance: Fully cleared Oral Transit: No deficits noted Pharyngeal Phase: Immediate laryngeal elevation Pharyngeal Response: No deficits noted MASA Score: 200 Dysphagia: No dysphagia detected (178-200) Aspiration Risk: No aspiration risk (170-200) Score Interpretation: MASA score consistent with clinical impression Plan NEGATIVE STRIPPER Frequency of Services during current admission: One-time visit (Discharge from this service) NEGATIVE STRIPPER Recommendation (Add'l Services): No further NEGATIVE STRIPPER indicated Next Visit Plan:No further ST warranted Please reference care plan for treatment goals, if indicated. Discharge Summary Statement If this is the last swallow therapy visit, this serves as the discharge summary. us Mitch Elizabeth MD NEGATIVE STRIPPER ORDERABLES Final Result * Urinalysis reflex to microscopic and culture Urine, clean voided (07/26/2024 6:09 AM CDT) Color, ur Straw Yellow Clarity, ur Clear Clear [facility] Specific gravity, ur 1.013 1.003 - 1.030 [facility] pH, urine 6.0 [facility] Comment: Interpretive Data U rine pH is affected by diet, medications, systemic acid-base disturbances, and renal tubular function. pH may affect urinary stone formation. For example, urine pH below 6.0 may help reduce the tendency for calcium phosphate stones and pH greater than 6.0 may reduce the tendency for uric acid stone formation. Source: [facility] Current Interpretive Data was last revised on 2017 Protein, ur ql Negative Negative [facility] Glucose, ur ql Negative Negative [facility] Ketones, ur Negative Negative [facility] Bilirubin, ur Negative Negative [facility] Blood, ur Negative Negative [facility] Urobilinogen, ur <2.0 <2.0 mg/dL [facility] Nitrite, ur Negative Negative [facility] Leukocyte esterase, ur Negative Negative [facility] UA reflex comment Reflex conditions for microscopic UA and culture not met. [facility] Urine, clean voided 07/26/2024 6:09 AM CDT 07/26/2024 6:54 AM CDT us Phil Burdick MD LAB MICROBIOLOGY - GENERAL ORDERABLES Final Result [facility] [place] [address] * Drugs of Abuse Screen, Urine without Confirmation (07/26/2024 6:09 AM CDT) Amphetamine, ur Not Detected [facility] 500ng/mL Comment: Interpretive Data - Amphetamines: Samples containing greater than 500 ng/mL d-methamphetamine or other cross-reacting amphetamine compounds are reported as positive. Amphetamine immunoassays are subject to significant false positive rates due to cross-reactivity of non-amphetamine drugs. Confirmatory testing required for definitive results. Current Interpretive Data was last reviewed 2022. Barbiturates, ur Not Detected CutOff 200ng/mL [facility] Comment: Interpretive Data - Barbiturates: Samples containing greater than 200 ng/mL secobarbital or other cross-reacting barbiturate compounds are reported as positive. False positive and false negative results are possible. Confirmatory testing required for definitive results. Current Interpretive Data was last reviewed 2022. Benzodiazepines, ur Not Detected CutOff 100ng/mL [facility] Comment: Interpretive Data - Benzodiazepines: Samples containing greater than 100 ng/mL nordiazepam or other cross-reacting compounds are reported as positive. False positive and false negative results are possible. Confirmatory testing required for definitive results. Current Interpretive Data was last reviewed 2022. Cannabinoids, ur Not Detected CutOff 50 ng/mL [facility] Comment: Interpretive Data - Cannabinoids: Samples containing greater than 50 ng/mL delta-9 THC -COOH or other cross- reacting compounds are reported as positive. False positive and false negative results are possible. Confirmatory testing required for definitive results. Current Interpretive Data was last reviewed 2022. Cocaine, ur Not Detected CutOff 150ng/mL [facility] Comment: Interpretive Data - Cocaine: Samples containing greater than 150 ng/mL benzoylecgonine or other cross- reacting compounds are reported as positive. False positive and false negative results are possible. Confirmatory testing required for definitive results. Current Interpretive Data was last reviewed 2022. Fentanyl, Ur Not Detected CutOff 5 ng/mL [facility] Comment: Interpretive Data - Fentanyl: Samples containing greater than 5 ng/mL norfentanyl, fentanyl, or other cross-reacting fentanyl compounds are reported as positive. False positive and false negative results are possible. Confirmatory testing required for definitive results. Current Interpretive Data was last reviewed 2023. Methadone, ur Not Detected CutOff 300ng/mL [facility] Comment: Interpretive Data - Methadone: Samples containing greater than 300 ng/mL d,l-methadone or other cross-reacting compounds are reported as positive. False positive and false negative results are possible. Confirmatory testing required for definitive results. Current Interpretive Data was last reviewed 2022. Opiates, ur Not Detected CutOff 300ng/mL [facility] Comment: Interpretive Data - Opiates: Samples containing greater than 300 ng/mL morphine or other cross-reacting compounds are reported as positive. False positive and false negative results are possible. Confirmatory testing required for definitive results. Current Interpretive Data was last reviewed 2022. Oxycodone, ur Not Detected CutOff 100ng/mL [facility] Comment: Interpretive Data - Oxycodone: Samples containing greater than 100 ng/mL oxycodone or other cross-reacting compounds are reported as positive. False positive and false negative results are possible. Confirmatory testing required for definitive results. Current Interpretive Data was last reviewed 2022. Phencyclidine, ur Not Detected CutOff 25 ng/mL [facility] Comment: Interpretive Data - Phencyclidine: Samples containing greater than 25 ng/mL phencyclidine or other cross-reacting compounds are reported as positive. False positive and false negative results are possible. Confirmatory testing required for definitive results. Current Interpretive Data was last reviewed 2022. Urine Creatinine 45 mg/dL [facility] Comment: Interpretive Data Urine Creatinine: < 10 mg/dL is extremely dilute = or > 10 but < 20 mg/dL is dilute = or > 20 mg/dL is normal Current Interpretive Data was last revised on 2017. Urine 07/26/2024 6:09 AM CDT 07/26/2024 6:54 AM CDT Narrative [facility] - 07/26/2024 7:31 AM CDT Drug of Abuse screening is performed by immunoassay for medical purposes only. This is not to be used for Pain Management purposes. us Phil Burdick MD LAB URINE ORDERABLES Final Result [facility] [place] [address] * eGFR (07/25/2024 8:52 PM CDT) eGFR 77 >=60 mL/min/1. 73 m2 Comment: Interpretive Data Reference Interval Normal >/= 90 mL/min/1.73m2 Mildly decreased* 60 - 89 mL/min/1.73m2 Mildly to moderately decreased 45 - 59 mL/min/1.73m2 Moderately to severely decreased 30 - 44 mL/min/1.73m2 Severely decreased 15 - 29 mL/min/1.73m2 Kidney Failure < 15 mL/min/1.73m2 *Relative to young adult level Estimated glomerular filtration rate is determined by the 2020 CKD-EPI equation recommended by the National Kidney Foundation (A Unifying Approach to GFR Estimation: Recommendations of the NKF-ASK Task Force on Reassessing the Inclusion of Race in Diagnosing Kidney Disease, JASN 2020). The CKD-EPI equation should not be used for patients with unstable renal function and has not been validated in children and those over 70. Current interpretive data was last reviewed 2021. Blood 07/25/2024 8:52 PM CDT 07/25/2024 9:54 PM CDT us Phil Burdick MD LAB BLOOD ORDERABLES Final Result [facility] [place] [address] * CBC without differential (07/25/2024 8:52 PM CDT) [facility] WBC 8.1 3.8 - 9.9 K/cumm Hgb 12.4 11.9 - 15.5 g/dL [facility] Hct 37.0 35.6 - 45.5 % [facility] Plt 247 150 - 400 K/cumm [facility] MPV 10.7 9.1 - 12.3 fL [facility] RBC 4.11 3.90 - 5.20 M/cumm [facility] MCV 90.0 81.3 - 96.4 fL [facility] MCH 30.2 27.1 - 33.3 pg [facility] MCHC 33.5 32.3 - 35.7 g/dL [facility] RDW CV 12.4 11.1 - 14.9 % [facility] RDW SD 40.1 35.7 - 48.1 fL [facility] NRBC abs 0.00 0.00 - 0.01 K/cumm [facility] Blood 07/25/2024 8:52 PM CDT 07/25/2024 9:54 PM CDT us Phil Burdick MD LAB BLOOD ORDERABLES Final Result Performing Organization Address City/[facility] Co de Phone Number [facility] [place] [address] * Phosphorus (07/25/2024 8:52 PM CDT) [facility] Phosphorus, pl 3.8 2.3 - 4.5 mg/dL Blood 07/25/2024 8:52 PM CDT 07/25/2024 9:54 PM CDT us Phil Burdick MD LAB BLOOD ORDERABLES Final Result Performing Organization Address [facility] Co de Phone Number [facility] [place] [address] * Magnesium (07/25/2024 8:52 PM CDT) [facility] Magnesium 2.1 1.4 - 2.5 mg/dL Blood 07/25/2024 8:52 PM CDT 07/25/2024 9:54 PM CDT us Phil Burdick MD LAB BLOOD ORDERABLES Final Result Performing Organization Address [facility] Co de Phone Number [facility] [place] [address] * Basic metabolic panel (07/25/2024 8:52 PM CDT) [facility] Sodium 142 135 - 145 mmol/L Potassium, pl 4.3 3.3 - 4.9 mmol/L [facility] Chloride 103 97 - 110 mmol/L [facility] CO2 28 22 - 32 mmol/L [facility] Anion gap 11 2 - 15 mmol/L [facility] BUN 17 6 - 25 mg/dL [facility] Creatinine 0.83 0.60 - 1.10 mg/dL [facility] Glucose 87 70 - 199 mg/dL [facility] Comment: Interpretive Data Fasting glucose >/= 126 mg/dl is diagnostic for diabetes. Fasting is defined as no caloric intake for at least 8 hours. Fasting glucose between 100 mg/dl to 125 mg/dl is diagnostic of prediabetes. In a patient with classic symptoms of hyperglycemia or hyperglycemic crisis, a random glucose >/= 200 mg/dl is diagnostic for diabetes. In the absence of unequivocal hyperglycemia, results should be confirmed by repeat testing. The classification and Diagnosis of Diabetes Diabetes Care 2021; 46: S19-S40. Current interpretive data was last revised 2022. Calcium 9.4 8.5 - 10.3 mg/dL [facility] Blood 07/25/2024 8:52 PM CDT 07/25/2024 9:54 PM CDT us Phil Burdick MD LAB BLOOD ORDERABLES Final Result [facility] [place] [address] * VerifyNow clopidogrel (07/25/2024 3:44 PM CDT) [facility] VerifyNow clopidogrel 119 PRU Comment: Interpretive Data Reference interval from adults not taking Plavix is 169-356 PRU. Output is reported in Plavix reaction units (PRU). A lower PRU indicates a more complete inhibition of P2Y12 ADP receptor by drugs such as clopidogrel or prasugrel. There is no consensus regarding a cut-off value for PRU when assessing patients' sensitivity to ADP P2Y12 receptor inhibitors. Clinicians should use this information based on their interpretation of currently available evidence to individualize patient management decisions. Conditions that may produce falsely low PRU results include anemia (Hct <29%) and thrombocytopenia (platelet count <90,000/mcL). Platelet responsiveness to Plavix should not be performed within 48 hours of treatment with GPIIbIIIa inhibitors etifibatide (Integrilin) or tirofiban (Aggrastat) or within 2 weeks of treatment with abciximab (Reopro). Current interpretive data was last revised on 2017. Blood 07/25/2024 3:44 PM CDT 07/25/2024 5:17 PM CDT us Poli Interiano MD LAB BLOOD ORDERABLES Suni l Result Performing Organization Address [facility] de Phone Number [facility] [place] [address] * Troponin I high-sensitivity 2-hour (07/25/2024 3:23 PM CDT) Trop I hs <4 <=17 ng/L Comment: Interpretive Data For further hscTnI resources including the diagnostic algorithm and an aid in interpretation, copy and paste this link: https://bjhlab.testcatalog.org/show/[email or web address] Current Interpretive Data last revised 2019. Trop I hs delta 0 ng/L [facility] Trop I hs interp Insignificant [facility] Blood 07/25/2024 3:23 PM CDT 07/25/2024 3:32 PM CDT us Willian Irvin MD LAB BLOOD ORDERABLES Final R esult Performing Organization Address [facility] de Phone Number [facility] [place] [address] * MRA Head and Carotids W WO Contrast (07/25/2024 3:17 PM CDT) Anatomical Region Laterality Modality Head and Neck N/A Magnetic Resonan ce 07/25/2024 3:30 PM CDT Impressions 07/25/2024 5:13 PM CDT 1. Diffusion restriction in the right posterior frontal lobe without associated FLAIR signal abnormality, concerning for a hyperacute infarct. 2. 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 Better evaluation could be obtained with CTA. Findings communicated with Dr. Smith by Dr. Sim on 07/25/2024 at 2:44 pm and 3:04 pm. Dictated by: Hilda Sim, The radiology attending physician has personally reviewed this study, and had reviewed and/or edited this written report and agrees with it. Electronically signed by: Loretta Ricks M.D., Ph.D. Narrative 07/25/2024 5:13 PM CDT EXAMINATION: 1. Magnetic resonance imaging (MRI) of the brain and brainstem without contrast 2. Magnetic resonance angiography (MRA) of the pvopht-gm-Fmxrlc without and with contrast 3. Magnetic resonance angiography (MRA) of the neck without and with contrast HISTORY: 68-year-old female with concern for acute infarct. left arm numbness and facial droop, NIHSS 4 TECHNIQUE: Multiplanar multi-weighted MRI of the brain and brainstem was performed without intravenous contrast using the hyperacute stroke protocol. Magnetic resonance angiography of the nsqvxr-ub-Elciob was performed using a separate data acquisition with a non-contrast xhhc-dt-aznrav technique and a post-contrast technique to produce axial thin-slice source images. These images were then used to generate maximum intensity projection (MIP) images. Magnetic resonance angiography of the neck was performed using a separate data acquisition with a non-contrast zmkl-rd-difxnr technique and a post-contrast technique to produce thin-slice source images. These images were then used to generate maximum intensity projection (MIP) images. Contrast information: 16 mL Gadoterate Meglumine IV COMPARISON: CT head dated 07/25/2024 FINDINGS: MRI BRAIN: Diffusion restriction in the right posterior frontal lobe without associated FLAIR signal abnormality, likely representing a hyperacute infarct. Mild periventricular and subcortical white matter T2/FLAIR hyperintensities are nonspecific but may represent chronic small vessel changes. No evidence of acute intracranial hemorrhage. The scalp and calvarium are normal. The corpus callosum is normal in shape and signal intensity. The posterior fossa is unremarkable. The brainstem and craniocervical junction are unremarkable. The ventricles are normal in size and position without evidence of hydrocephalus. The paranasal sinuses are normal. Left mastoid effusion. The orbits appear normal. MRA NECK: The aortic arch and origins of the great vessels are normal. A typical three-vessel arch is present. 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 The left common and internal carotid arteries are patent without significant stenosis. Cervical vertebral arteries are of normal caliber. The left vertebral artery is dominant. Although MRA is a screening examination, catheter angiography remains the definitive study for small aneurysms, vasculitis, and other vascular abnormalities. There is no soft tissue abnormality in the neck on limited imaging of the neck included in this MR angiogram. MRA HEAD: Decreased signal on the tygf-hc-qedfvo sequence in the intracranial right internal carotid artery with signal present within the right middle and anterior cerebral arteries, suggesting occlusion of the right carotid, as confirmed by MRA neck. The left intracranial internal carotid artery is patent without significant stenosis. A right posterior communicating artery is visualized. The anterior and middle cerebral arteries are patent. The left vertebral artery is dominant. The basilar artery is normal. The posterior cerebral arteries are patent without significant stenosis. There is no aneurysm or vascular malformation identified. Although MRA is a screening examination, catheter angiography remains the definitive study for small aneurysms, vasculitis, and other vascular abnormalities. Procedure Note Loretta Ricks MD PhD - 07/25/2024 EXAMINATION: 1. Magnetic resonance imaging (MRI) of the brain and brainstem without contrast 2. Magnetic resonance angiography (MRA) of the ujktkt-cp-Wcskks without and with contrast 3. Magnetic resonance angiography (MRA) of the neck without and with contrast HISTORY: 68-year-old female with concern for acute infarct. left arm numbness and facial droop, NIHSS 4 TECHNIQUE: Multiplanar multi-weighted MRI of the brain and brainstem was performed without intravenous contrast using the hyperacute stroke protocol. Magnetic resonance angiography of the rjkgcs-uu-Brdbgq was performed using a separate data acquisition with a non-contrast ikmz-xl-zkomer technique and a post-contrast technique to produce axial thin-slice source images. These images were then used to generate maximum intensity projection (MIP) images. Magnetic resonance angiography of the neck was performed using a separate data acquisition with a non-contrast zzvi-ln-hmkayj technique and a post-contrast technique to produce thin-slice source images. These images were then used to generate maximum intensity projection (MIP) images. Contrast information: 16 mL Gadoterate Meglumine IV COMPARISON: CT head dated 07/25/2024 FINDINGS: MRI BRAIN: Diffusion restriction in the right posterior frontal lobe without associated FLAIR signal abnormality, likely representing a hyperacute infarct. Mild periventricular and subcortical white matter T2/FLAIR hyperintensities are nonspecific but may represent chronic small vessel changes. No evidence of acute intracranial hemorrhage. The scalp and calvarium are normal. The corpus callosum is normal in shape and signal intensity. The posterior fossa is unremarkable. The brainstem and craniocervical junction are unremarkable. The ventricles are normal in size and position without evidence of hydrocephalus. The paranasal sinuses are normal. Left mastoid effusion. The orbits appear normal. MRA NECK: The aortic arch and origins of the great vessels are normal. A typical three-vessel arch is present. 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 The left common and internal carotid arteries are patent without significant stenosis. Cervical vertebral arteries are of normal caliber. The left vertebral artery is dominant. Although MRA is a screening examination, catheter angiography remains the definitive study for small aneurysms, vasculitis, and other vascular abnormalities. There is no soft tissue abnormality in the neck on limited imaging of the neck included in this MR angiogram. MRA HEAD: Decreased signal on the vbxt-yv-ttygar sequence in the intracranial right internal carotid artery with signal present within the right middle and anterior cerebral arteries, suggesting occlusion of the right carotid, as confirmed by MRA neck. The left intracranial internal carotid artery is patent without significant stenosis. A right posterior communicating artery is visualized. The anterior and middle cerebral arteries are patent. The left vertebral artery is dominant. The basilar artery is normal. The posterior cerebral arteries are patent without significant stenosis. There is no aneurysm or vascular malformation identified. Although MRA is a screening examination, catheter angiography remains the definitive study for small aneurysms, vasculitis, and other vascular abnormalities. IMPRESSION: 1. Diffusion restriction in the right posterior frontal lobe without associated FLAIR signal abnormality, concerning for a hyperacute infarct. 2. 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 Better evaluation could be obtained with CTA. Findings communicated with Dr. Smith by Dr. Sim on 07/25/2024 at 2:44 pm and 3:04 pm. Dictated by: Hilda Sim DO The radiology attending physician has personally reviewed this study, and had reviewed and/or edited this written report and agrees with it. Electronically signed by: Loretta Ricks M.D., Ph.D. us Casa Sarah MD IMG MRI PROCEDURES Suni l Result * Critical MRI Brain Hyperacute Stroke W WO Contrast (07/25/2024 3:17 PM CDT) Anatomical Region Laterality Modality Head and Neck N/A Magnetic Resonan ce 07/25/2024 3:30 PM CDT Impressions 07/25/2024 5:13 PM CDT 1. Diffusion restriction in the right posterior frontal lobe without associated FLAIR signal abnormality, concerning for a hyperacute infarct. 2. 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 Better evaluation could be obtained with CTA. Findings communicated with Dr. Smith by Dr. Sim on 07/25/2024 at 2:44 pm and 3:04 pm. Dictated by: Hilda Sim DO The radiology attending physician has personally reviewed this study, and had reviewed and/or edited this written report and agrees with it. Electronically signed by: Loretta Ricks M.D., Ph.D. Narrative 07/25/2024 5:13 PM CDT EXAMINATION: 1. Magnetic resonance imaging (MRI) of the brain and brainstem without contrast 2. Magnetic resonance angiography (MRA) of the ybgkbs-dd-Jbmaxb without and with contrast 3. Magnetic resonance angiography (MRA) of the neck without and with contrast HISTORY: 68-year-old female with concern for acute infarct. left arm numbness and facial droop, NIHSS 4 TECHNIQUE: Multiplanar multi-weighted MRI of the brain and brainstem was performed without intravenous contrast using the hyperacute stroke protocol. Magnetic resonance angiography of the kwbylh-pf-Cvqzse was performed using a separate data acquisition with a non-contrast oyyw-gd-jexita technique and a post-contrast technique to produce axial thin-slice source images. These images were then used to generate maximum intensity projection (MIP) images. Magnetic resonance angiography of the neck was performed using a separate data acquisition with a non-contrast ddge-me-igiedu technique and a post-contrast technique to produce thin-slice source images. These images were then used to generate maximum intensity projection (MIP) images. Contrast information: 16 mL Gadoterate Meglumine IV COMPARISON: CT head dated 07/25/2024 FINDINGS: MRI BRAIN: Diffusion restriction in the right posterior frontal lobe without associated FLAIR signal abnormality, likely representing a hyperacute infarct. Mild periventricular and subcortical white matter T2/FLAIR hyperintensities are nonspecific but may represent chronic small vessel changes. No evidence of acute intracranial hemorrhage. The scalp and calvarium are normal. The corpus callosum is normal in shape and signal intensity. The posterior fossa is unremarkable. The brainstem and craniocervical junction are unremarkable. The ventricles are normal in size and position without evidence of hydrocephalus. The paranasal sinuses are normal. Left mastoid effusion. The orbits appear normal. MRA NECK: The aortic arch and origins of the great vessels are normal. A typical three-vessel arch is present. 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 The left common and internal carotid arteries are patent without significant stenosis. Cervical vertebral arteries are of normal caliber. The left vertebral artery is dominant. Although MRA is a screening examination, catheter angiography remains the definitive study for small aneurysms, vasculitis, and other vascular abnormalities. There is no soft tissue abnormality in the neck on limited imaging of the neck included in this MR angiogram. MRA HEAD: Decreased signal on the fwgp-qn-wctphg sequence in the intracranial right internal carotid artery with signal present within the right middle and anterior cerebral arteries, suggesting occlusion of the right carotid, as confirmed by MRA neck. The left intracranial internal carotid artery is patent without significant stenosis. A right posterior communicating artery is visualized. The anterior and middle cerebral arteries are patent. The left vertebral artery is dominant. The basilar artery is normal. The posterior cerebral arteries are patent without significant stenosis. There is no aneurysm or vascular malformation identified. Although MRA is a screening examination, catheter angiography remains the definitive study for small aneurysms, vasculitis, and other vascular abnormalities. Procedure Note Loretta Ricks MD PhD - 07/25/2024 EXAMINATION: 1. Magnetic resonance imaging (MRI) of the brain and brainstem without contrast 2. Magnetic resonance angiography (MRA) of the scowln-do-Btutoe without and with contrast 3. Magnetic resonance angiography (MRA) of the neck without and with contrast HISTORY: 68-year-old female with concern for acute infarct. left arm numbness and facial droop, NIHSS 4 TECHNIQUE: Multiplanar multi-weighted MRI of the brain and brainstem was performed without intravenous contrast using the hyperacute stroke protocol. Magnetic resonance angiography of the laiuhb-sk-Hsadwb was performed using a separate data acquisition with a non-contrast snnu-nc-iglcnj technique and a post-contrast technique to produce axial thin-slice source images. These images were then used to generate maximum intensity projection (MIP) images. Magnetic resonance angiography of the neck was performed using a separate data acquisition with a non-contrast faen-bk-rgtslt technique and a post-contrast technique to produce thin-slice source images. These images were then used to generate maximum intensity projection (MIP) images. Contrast information: 16 mL Gadoterate Meglumine IV COMPARISON: CT head dated 07/25/2024 FINDINGS: MRI BRAIN: Diffusion restriction in the right posterior frontal lobe without associated FLAIR signal abnormality, likely representing a hyperacute infarct. Mild periventricular and subcortical white matter T2/FLAIR hyperintensities are nonspecific but may represent chronic small vessel changes. No evidence of acute intracranial hemorrhage. The scalp and calvarium are normal. The corpus callosum is normal in shape and signal intensity. The posterior fossa is unremarkable. The brainstem and craniocervical junction are unremarkable. The ventricles are normal in size and position without evidence of hydrocephalus. The paranasal sinuses are normal. Left mastoid effusion. The orbits appear normal. MRA NECK: The aortic arch and origins of the great vessels are normal. A typical three-vessel arch is present. 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 The left common and internal carotid arteries are patent without significant stenosis. Cervical vertebral arteries are of normal caliber. The left vertebral artery is dominant. Although MRA is a screening examination, catheter angiography remains the definitive study for small aneurysms, vasculitis, and other vascular abnormalities. There is no soft tissue abnormality in the neck on limited imaging of the neck included in this MR angiogram. MRA HEAD: Decreased signal on the zasu-ts-fqlwqc sequence in the intracranial right internal carotid artery with signal present within the right middle and anterior cerebral arteries, suggesting occlusion of the right carotid, as confirmed by MRA neck. The left intracranial internal carotid artery is patent without significant stenosis. A right posterior communicating artery is visualized. The anterior and middle cerebral arteries are patent. The left vertebral artery is dominant. The basilar artery is normal. The posterior cerebral arteries are patent without significant stenosis. There is no aneurysm or vascular malformation identified. Although MRA is a screening examination, catheter angiography remains the definitive study for small aneurysms, vasculitis, and other vascular abnormalities. IMPRESSION: 1. Diffusion restriction in the right posterior frontal lobe without associated FLAIR signal abnormality, concerning for a hyperacute infarct. 2. 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 Better evaluation could be obtained with CTA. Findings communicated with Dr. Smith by Dr. Sim on 07/25/2024 at 2:44 pm and 3:04 pm. Dictated by: Hilda Sim DO The radiology attending physician has personally reviewed this study, and had reviewed and/or edited this written report and agrees with it. Electronically signed by: Loretta Ricks M.D., Ph.D. Casa Sarah MD IM MRI PROCEDURES Suni l Result * ECG 12-LEAD (07/25/2024 2:10 PM CDT) Narrative [facility] - 07/25/2024 2:10 PM CDT iMtch Elizabeth MD 07/25/2024 2:10 PM ECG 12 lead Date/Time: 07/25/2024 2:10 PM Performed by: Mitch Elizabeth MD Authorized by: Mitch Elizabeth MD Rate: ECG rate: 51 ECG rate assessment: bradycardic Rhythm: Rhythm: sinus bradycardia Ectopy: Ectopy: none QRS: QRS axis: Normal QRS intervals: Normal Conduction: Conduction: abnormal Abnormal conduction: 1st degree ST segments: ST segments: Normal T waves: T waves: non-specific Previous ECG: Previous ECG: Compared to current Date of previous EC03/13/2018 Similarity: No change Interpretation: Interpretation: non-specific Recommended Follow-up: Recommended follow up: further workup in the ED Procedure Note Mitch Elizabeth MD - 07/25/2024 2:10 PM CDT Procedure ECG 12 lead Date/Time: 07/25/2024 2:10 PM Performed by: Mitch Elizabeth MD Authorized by: Mitch Elizabeth MD Rate: ECG rate: 51 ECG rate assessment: bradycardic Rhythm: Rhythm: sinus bradycardia Ectopy: Ectopy: none QRS: QRS axis: Normal QRS intervals: Normal Conduction: Conduction: abnormal Abnormal conduction: 1st degree ST segments: ST segments: Normal T waves: T waves: non-specific Previous ECG: Previous ECG: Compared to current Date of previous EC03/13/2018 Similarity: No change Interpretation: Interpretation: non-specific Recommended Follow-up: Recommended follow up: further workup in the ED Mitch Elizabeth MD 07/25/24 1410 Mitch Elizabeth MD ECG ORDERABLES Final Result [facility] * [place] CRITICAL CARE ILL/INJURED PATIENT INIT 30-74 MIN (07/25/2024 2:01 PM CDT) Narrative Mitch Elizabeth MD - 07/25/2024 2:01 PM CDT Mitch Elizabeth MD 07/25/2024 3:56 PM Critical Care Performed by: Mitch Elizabeth MD Authorized by: Mitch Elizabeth MD Critical care provider statement: As reflected in the history, physical exam, orders, notes, and/or MDM, I was personally present while the patient was critically ill and provided critical care services for 40 minutes, excluding time involved in separately billable procedures. Critical care was necessary to treat or prevent imminent or life-threatening deterioration of the following condition(s): acute cerebrovascular accident (CVA) and severe neurologic condition Critical care was time spent by me providing the following: continuous telemetry, continuous pulse oximetry, interpretation of bedside monitors, imaging, and arterial/venous lab draws and serial bedside patient exams frequent neurologic exams, decision regarding acute lytic therapy, initiation of stroke management and advanced imaging MRI I provided emergent necessary critical care medicine services to this patient. I ordered and reviewed test results and/or imaging studies. I spent time discussing the management of this critically ill patient with consultants and the medical staff. I spent time discussing the management and therapeutic options for this critically ill patient with the patient themselves or with the appropriate designated surrogate decision-maker. I spent time documenting in the medical record. I admitted this patient to a continuous cardiac monitored bed. us Mitch Elizabeth MD IN CLINIC/BEDSIDE LANI IGNACIO Final Result * CT Stroke Head WO Contrast (07/25/2024 1:51 PM CDT) Anatomical Region Laterality Modality Head N/A Computed Tomogra phy 07/25/2024 1:59 PM CDT Impressions 07/25/2024 4:24 PM CDT No acute intracranial process. The Non Critical results were discussed with Dr. Elizabeth by Dr. Jacques Pederson on 07/25/2024 at 1:57 PM. Dictated by: Jacques Pederson M.D. The radiology attending physician has personally reviewed this study, and had reviewed and/or edited this written report and agrees with it. Electronically signed by: Mann Cummings MD Narrative 07/25/2024 4:24 PM CDT EXAMINATION: CT head without contrast HISTORY: 68-year-old female with left facial droop and left upper cavity weakness. TECHNIQUE: CT of the head was performed with images acquired from skull base to vertex without intravenous contrast. COMPARISON: None Available. FINDINGS: There is no acute intracranial hemorrhage. Ventricles are of normal size and morphology. No mass effect or midline shift is present. The milian-white matter differentiation is normal. The visualized portions of the orbits are normal. The visualized portions of the mastoids are normal. The visualized portions of the paranasal sinuses are normal. No fractures are identified. Hyperostosis frontalis interna. Calcifications within the bilateral basal ganglia. Procedure Note Mann Cummings MD - 07/25/2024 EXAMINATION: CT head without contrast HISTORY: 68-year-old female with left facial droop and left upper cavity weakness. TECHNIQUE: CT of the head was performed with images acquired from skull base to vertex without intravenous contrast. COMPARISON: None Available. FINDINGS: There is no acute intracranial hemorrhage. Ventricles are of normal size and morphology. No mass effect or midline shift is present. The milian-white matter differentiation is normal. The visualized portions of the orbits are normal. The visualized portions of the mastoids are normal. The visualized portions of the paranasal sinuses are normal. No fractures are identified. Hyperostosis frontalis interna. Calcifications within the bilateral basal ganglia. IMPRESSION: No acute intracranial process. The Non Critical results were discussed with Dr. Elizabeth by Dr. Jacques Pederson on 07/25/2024 at 1:57 PM. Dictated by: Jacques Pederson M.D. The radiology attending physician has personally reviewed this study, and had reviewed and/or edited this written report and agrees with it. Electronically signed by: Mann Cummings MD us Mitch Elizabeth MD IMG CT PROCEDURES Suni l Result * POCT prothrombin time, whole blood (07/25/2024 1:48 PM CDT) PT, POC 11.7 10.6 - 13.5 sec INR, bld, POC 1.0 0.9 - 1.2 [facility] Blood 07/25/2024 1:48 PM CDT 07/25/2024 1:48 PM CDT Mitch Elizabeth MD LAB POCT ORDERABLES - DEVICE Final Result [facility] [place] [address] * POCT glucose (07/25/2024 1:47 PM CDT) Glucose, POC 102 70 - 199 mg/dL Blood 07/25/2024 1:47 PM CDT 07/25/2024 1:47 PM CDT us Notinfile Unknown LAB POCT ORDERABLES - DEVICE F inal Result Performing Organization Address [facility] Co de Phone Number [facility] Department [place] [address] * Troponin I high-sensitivity series (baseline, 2hr, 4hr, 6hr) (07/25/2024 1:45 PM CDT) Trop I hs 4 <=17 ng/L Comment: Code Blue Specimen Interpretive Data For further hscTnI resources including the diagnostic algorithm and an aid in interpretation, copy and paste this link: [email or web address].testcatalog.org/show/[email or web address] Current Interpretive Data last revised 2019. Blood 07/25/2024 1:45 PM CDT 07/25/2024 1:58 PM CDT Mitch Elizabeth MD LAB BLOOD ORDERABLES F inal Result Performing Organization Address [facility] Co de Phone Number [facility] [place] [address] * eGFR (07/25/2024 1:45 PM CDT) eGFR 78 >=60 mL/min/1. 73 m2 Comment: Interpretive Data Reference Interval Normal >/= 90 mL/min/1.73m2 Mildly decreased* 60 - 89 mL/min/1.73m2 Mildly to moderately decreased 45 - 59 mL/min/1.73m2 Moderately to severely decreased 30 - 44 mL/min/1.73m2 Severely decreased 15 - 29 mL/min/1.73m2 Kidney Failure < 15 mL/min/1.73m2 *Relative to young adult level Estimated glomerular filtration rate is determined by the 2020 CKD-EPI equation recommended by the National Kidney Foundation (A Unifying Approach to GFR Estimation: Recommendations of the NKF-ASK Task Force on Reassessing the Inclusion of Race in Diagnosing Kidney Disease, JASN 202). The CKD-EPI equation should not be used for patients with unstable renal function and has not been validated in children and those over 70. Current interpretive data was last reviewed 2021. Blood 07/25/2024 1:45 PM CDT 07/25/2024 1:58 PM CDT us Willian Irvin MD LAB BLOOD ORDERABLES Final R esult [facility] [place] [address] * Differential, auto (07/25/2024 1:45 PM CDT) Neutrophil abs 4.2 1.5 - 6.5 K/cumm Imm gran abs 0.0 0.0 - 0.1 K/cumm [facility] Lymphocyte abs 2.3 0.8 - 3.3 K/cumm [facility] Monocyte abs 0.7 0.2 - 0.8 K/cumm [facility] Eosinophil abs 0.2 0.0 - 0.5 K/cumm [facility] Basophil abs 0.1 0.0 - 0.1 K/cumm [facility] Neutrophil pct 55.7 % [facility] Comment: Interpretive Data Percent cell count reference ranges are not reported, since discordance with absolute values may lead to misinterpretation of CBC data. Current Interpretive Data was last revised on 2017. Imm gran pct 0.4 % [facility] Comment: Interpretive Data Percent cell count reference ranges are not reported, since discordance with absolute values may lead to misinterpretation of CBC data. Current Interpretive Data was last revised on 2017. Lymphocyte pct 30.9 % [facility] Comment: Interpretive Data Percent cell count reference ranges are not reported, since discordance with absolute values may lead to misinterpretation of CBC data. Current Interpretive Data was last revised on 2017. Monocyte pct 9.3 % [facility] Comment: Interpretive Data Percent cell count reference ranges are not reported, since discordance with absolute values may lead to misinterpretation of CBC data. Current Interpretive Data was last revised on 2017. Eosinophil pct 2.8 % [facility] Comment: Interpretive Data Percent cell count reference ranges are not reported, since discordance with absolute values may lead to misinterpretation of CBC data. Current Interpretive Data was last revised on 2017. Basophil pct 0.9 % [facility] Comment: Interpretive Data Percent cell count reference ranges are not reported, since discordance with absolute values may lead to misinterpretation of CBC data. Current Interpretive Data was last revised on 2017. Blood 07/25/2024 1:45 PM CDT 07/25/2024 1:58 PM CDT us Willian Irvin MD LAB BLOOD ORDERABLES Final R esult [facility] [place] [address] * CBC with auto differential (07/25/2024 1:45 PM CDT) WBC 7.5 3.8 - 9.9 K/cumm Comment:Code Blue Specimen Hgb 12.9 11.9 - 15.5 g/dL [facility] Hct 38.8 35.6 - 45.5 % [facility] Plt 277 150 - 400 K/cumm [facility] MPV 10.4 9.1 - 12.3 fL [facility] RBC 4.29 3.90 - 5.20 M/cumm [facility] MCV 90.4 81.3 - 96.4 fL [facility] MCH 30.1 27.1 - 33.3 pg [facility] MCHC 33.2 32.3 - 35.7 g/dL [facility] RDW CV 12.7 11.1 - 14.9 % [facility] RDW SD 41.4 35.7 - 48.1 fL [facility] NRBC abs 0.00 0.00 - 0.01 K/cumm [facility] Blood Venous blood specimen / Unknown 07/25/2024 1:45 PM CDT 07/25/2024 1:58 PM CDT Narrative [facility] - 07/25/2024 2:02 PM CDT Potential Stroke Patient us Mitch Elizabeth MD LAB BLOOD ORDERABLES F inal Result Performing Organization Address [facility] Co de Phone Number [facility] [place] [address] * aPTT (07/25/2024 1:45 PM CDT) aPTT 35 28 - 38 sec Comment: Code Blue Specimen Interpretive Data Heparin therapeutic range: 66.0 - 100.0 seconds. Range based on correlation with therapeutic heparin activity range of 0.3 - 0.7 Units/mL. Current interpretive data was last revised on 2023. Blood Venous blood specimen / Unknown 07/25/2024 1:45 PM CDT 07/25/2024 1:58 PM CDT [facility] - 07/25/2024 2:09 PM CDT Potential stroke patient. Mitch Elizabeth MD LAB BLOOD ORDERABLES F inal Result Performing Organization Address [facility] de Phone Number KRISTIE [facility] Department [place] [employer] [place] [address] * (ABNORMAL) Comprehensive metabolic panel (07/25/2024 1:45 PM CDT) Sodium 141 135 - 145 mmol/L Comment:Code Blue Specimen Potassium, pl 5.4(H) 3.3 - 4.9 mmol/L [facility] Comment: Hemolyzed; Potassium value may be falsely elevated by as much as 0.6-1.0 mmol/L. Suggest redraw and reanalysis. Code Blue Specimen Chloride 106 97 - 110 mmol/L [facility] Comment:Code Blue Specimen CO2 27 22 - 32 mmol/L [facility] Comment:Code Blue Specimen Anion gap 8 2 - 15 mmol/L [facility] Comment:Code Blue Specimen BUN 18 6 - 25 mg/dL [facility] Comment:Code Blue Specimen Creatinine 0.82 0.60 - 1.10 mg/dL [facility] Comment:Code Blue Specimen Glucose 105 70 - 199 mg/dL [facility] Comment: Code Blue Specimen Interpretive Data Fasting glucose >/= 126 mg/dl is diagnostic for diabetes. Fasting is defined as no caloric intake for at least 8 hours. Fasting glucose between 100 mg/dl to 125 mg/dl is diagnostic of prediabetes. In a patient with classic symptoms of hyperglycemia or hyperglycemic crisis, a random glucose >/= 200 mg/dl is diagnostic for diabetes. In the absence of unequivocal hyperglycemia, results should be confirmed by repeat testing. The classification and Diagnosis of Diabetes Diabetes Care 2021; 46: S19-S40. Current interpretive data was last revised 2022. Calcium 9.4 8.5 - 10.3 mg/dL [facility] Comment:Code Blue Specimen Bilirubin, total 0.5 0.1 - 1.2 mg/dL [facility] Comment:Code Blue Specimen Protein, pl 7.3 6.5 - 8.5 g/dL [facility] Comment:Code Blue Specimen Albumin 4.0 3.5 - 5.0 g/dL [facility] Comment:Code Blue Specimen Alk phos 92 40 - 130 Units/L [facility] Comment:Code Blue Specimen ALT 23 7 - 45 Units/L [facility] Comment:Code Blue Specimen AST 32 10 - 45 Units/L [facility] Comment: Hemolyzed; result may be falsely elevated Code Blue Specimen Blood Venous blood specimen / Unknown 07/25/2024 1:45 PM CDT 07/25/2024 1:58 PM CDT Narrative [facility] - 07/25/2024 2:22 PM CDT Potential Stroke Patient Mitch Elizabeth MD LAB BLOOD ORDERABLES F inal Result [facility] Department [place] [address] * HEPATITIS C AB W/REFL TO HCV RNA, QN, PCR (REFL) (03/03/2018 10:07 AM CDT) Hep C Ab NON-REACT ELIO NON-REACT ELIO [facility] [place] Comment: Our records indicate that you have ordered a client custom reflex order code. Only the initial test was performed because we do not have a client custom reflex testing authorization request form on file for you. Please contact a client services associate if you would like additional testing done on this patient or contact your director corporate sales to obtain a client custom reflex testing authorization request form. SIGNAL TO CUT-OFF 0.01 <1.00 [facility] [place] Blood specimen (specimen) 03/03/2018 10:07 AM CDT 03/03/2018 10:08 AM CDT Narrative Resulting Agency Comment Performing Organization Information: Site ID: [id number] Name: [facility] Address: [address] [place] [address] [id number] Director: Kendall Marsh D.O., MPH Hunter Schwartz MD LAB BLOOD ORDERABLES Fin al Result [facility] [place] from Last 3 Months or Most Recently Relevant to Health Maintenance Insurance [facility] [employer] [place] [address] [employer] MEDICARE GOLD Advance Directives For more information, please contact: [phone] * Full Code (Latest Code Status on File) Date Activated Date Inactivated Comments 07/25/2024 6:39 PM 07/26/2024 10:29 PM * Full Code Date Activated Date Inactivated Comments 03/13/2018 2:33 PM 03/14/2018 10:36 PM Care Teams Aluminum Siding Applicator Relationship Specialty Start Date End Date Allie Chong NP [address] [place] [address] PCP - General Nurse Practitioner 07/26/24
--- OUTSIDE RECORDS SUMMARY | 2024-08-22 16:00 | XMS_ITS | Encounter Summary ---
Author Organization [facility] Address [address] [place] [address] Phone Care Team Providers Care Sewer Line Photo Inspector Name Role Phone Dwayne Torres MD Primary Care Provider [phone] Troy Dunn MD Primary Care Provider [phone] Hussain Torres MD Unavailable Reason for Visit * Reason Comments Medication Refill Encounter Details Date Type Department Care Team (Late st Contact Info) Description 05/20/2021 Refill [facility] - Primary Care - [place] [address] [place] [address] Kelsi Reyes MD [address] [place] [address] Medication Refill Social History Tobacco Use Types Packs/Day Years Used Date Smoking Tobacco: Every Day Cigarettes Smokeless Tobacco: Never Comments No Sex and Gender Information Value Date Recorded Sex Assigned at Not on file Legal Sex Female 10:12 AM VITREO RETINAL SURGEON Gender Identity Not on file Sexual Orientation Not on file documented as of this encounter Miscellaneous Notes * Telephone Encounter - Laurel Del Rio RN - 05/21/2021 7:10 AM VITREO RETINAL SURGEON Refused- no PCP in this practice. EO RETINAL SURGEON documented in this encounter Plan of Treatment Upcoming Encounters Date Type Department Care Team (Late st Contact Info) Description 08/23/2024 10:30 AM CDT Lab [facility] [address] [address] [facility] Boy[facility] Lab/Ancillary 08/30/2024 12:30 PM CDT Office Visit [facility] - Family Medicine - [place] [address] [place] [address] Troy Dunn MD [id number] [address] documented as of this encounter Visit Diagnoses Not on filedocumented in this encounter Care Teams Sewer Line Photo Inspector Relationship Specialty Start Date End Date Dwayne Torres MD [address] [place] [address] PCP - General Internal Medicine 05/21/19 12/27/22 Troy Dunn MD [id number] [address] PCP - General Family Medicine 12/28/22 Hussain Torres MD [id number] [address] Consulting Physician Colon and Rectal Surgery 04/12/23 documented as of this encounter
--- OUTSIDE RECORDS SUMMARY | 2024-08-22 16:00 | XMS_ITS | Clinical Summary ---
Author Organization [facility] Address [address] [place] [address] Care Team Providers Care Popped Corn Oven Attendant Name Role Phone Dwayne Torres MD Primary Care Provider [phone] Source Comments [facility],non[facility] Affiliates and Associated Physician Practices is amultiple site organization consisting of ambulatory clinics and hospital sitesin [place], [place], [place] and [place]. This disclosure is being madepursuant to the Care Everywhere program and may not contain all information available regarding this patient. Last updated [email or web address] Active Problems Problem Noted Date Diagnosed Date Basal cell carcinoma of skin 10/10/2012 Family History Medical History Relation Name Comments Heart Failure Brother Heart Failure Father High Cholesterol Father Hypertension Father Diabetes Maternal Grandmother Cancer Mother Heart Failure Mother High Cholesterol Mother Hypertension Mother Diabetes Paternal Grandmother Diabetes Sister Heart Failure Sister Relation Name Status Comments Brother Father Maternal Grandmother Mother Paternal Grandmother Sister Social History Tobacco Use Types Packs/Day Years Used Date Smoking Tobacco: Former Smokeless Tobacco: Never Alcohol Use Standard Drinks/Week Comments Yes 1.7 (1 standard drink = 0.6 oz p ure alcohol) Comments Unknown Sex and Gender Information Value Date Recorded Sex Assigned at Not on file Legal Sex Female 6:47 PM VACCINATOR Gender Identity Not on file Sexual Orientation Not on file Last Filed Vital Signs Vital Sign Reading Time Taken Comments Blood Pressure 110/63 10/10/2012 2:01 PM CDT Pulse 55 10/10/2012 2:01 PM CDT Temperature - - Respiratory Rate - - Oxygen Saturation 96% 10/10/2012 2:01 PM CDT Inhaled Oxygen Concentration - - Weight 86.2 kg (190 lb) 10/10/2012 9:28 AM CDT Height 157.5 cm (5' 2 ) 10/10/2012 9:28 AM CDT Body Mass Index 34.75 10/10/2012 9:28 AM CDT Plan of Treatment Health Maintenance Due Date Last Done Comments BONE DENSITY TESTING 1955 COLOGUARD (AGES 45-75) - COL ON CA SCREENING 1956 COLON MONITORING 1956 COLONOSCOPY - COLON CA SCREENING 1956 CT COLONOGRAPHY - COLON CA SCREENING 1955 Colorectal Cancer Screening 1955 FIT - COLON CA SCREENING 1956 FLEX SIG - COLON CA SCREENING 1956 LIPID TESTING 1956 MAMMOGRAM 1956 HEPATITIS C SCREENING 09/16/1974 DTAP/TDAP/TD VACCINES (1 - Tdap) 09/21/1975 PNEUMOCOCCAL VACCINE 50+ (1 of 1 - PCV) 2006 ZOSTER VACCINE (1 of 2) 2006 COVID-19 VACCINE (1 - 2023-2 5 season) 2024 DEPRESSION SCREENING 05/02/2024 INFLUENZA VACCINE (Season Ended) 2024 Respiratory Syncytial Virus (RSV) Vaccine Pt: or over 60 yrs (1 - 1-dose 75+ series) 09/21/2031 HEPATITIS B VACCINE Aged Out No longe r eligible based on patient's age to complete this topic HIB VACCINE Aged Out No longer eligi ble based on patient's age to complete this topic HPV VACCINE Aged Out No longer eligi ble based on patient's age to complete this topic MENINGOCOCCAL (Group B) VACC INE SHARED DECISION-MAKING Aged Out No longer eligibl e based on patient's age to complete this topic MENINGOCOCCAL GROUPS A/C/Y/W VACCINE Aged Out No longer eligible b ased on patient's age to complete this topic Insurance [employer] Care Teams Popped Corn Oven Attendant Relationship Specialty Start Date End Date Dwayne Torres MD [address] [place] [id number] PCP - General 04/07/12
--- OUTSIDE RECORDS SUMMARY | 2024-08-22 16:00 | XMS_ITS | Encounter Summary ---
Author Organization [facility] Address [address] [place] [address] Phone Care Team Providers Care Hot Air Furnace Installer And Repairer Name Role Phone Troy Dunn MD Primary Care Provider [phone] Hussain Torres MD Unavailable Reason for Visit * Reason Comments Medication Refill Encounter Details Date Type Department Care Team (Late st Contact Info) Description 09/30/2023 Refill [facility] #[address] [place] [address] Troy Dunn MD #[address] [address] Medication Refill Social History Tobacco Use Types Packs/Day Years Used Date Smoking Tobacco: Former Cigarettes 1 53.2 1 971 - 07/25/2023 Smokeless Tobacco: Never Comments:Quit for 18 years i n between Alcohol Use Standard Drinks/Week Comments Not Currently 0 (1 standard drink = 0.6 oz pur e alcohol) [facility] Utilities Answer Date Recorded In the past 12 months has [email or web address] electric, gas, oil, or water company threatened to shut off services in your home? No 04/28/2023 Social Connection and Isolation Panel [NHANES] A nswer Date Recorded In a typical week, how many times do you talk on the phone with family, friends, or neighbors? Twice a week 04/28/2023 Frequency of Social Gatherings with Friends and Family Not on file 04/28/2023 Attends Holiness Services Not on file 04/28 Active Member of Clubs or Organizations Not on f ile 04/28/2023 Attends Club or Organization Meetings Not on matilde e 04/28/2023 Marital Status Not on file 04/28/2023 AUDIT-C Answer Date Recorded Q1: How often do you have a drink containing alc ohol? Monthly or less 04/28/2023 Average Number of Drinks Not on file 023 Frequency of Binge Drinking Not on file 04/02 Overall Financial Resource Strain (CARDIA) Answe r Date Recorded How hard is it for you to pa y for the very basics like food, housing, medical care, and heating? Not hard at all 04/28/2023 PHQ-2 Answer Date Recorded Total Score - Questions 1-9 0 08/01 [facility] of Occupat ional Health - Occupational Stress Questionnaire Answer Date Recorded Do you feel stress - tense, restless, nervous, or anxious, or unable to sleep at night because your mind is troubled all the time - these days? Not at all 04/28/2023 Exercise Vital Sign Answer Date Recorde d On average, how many days pe r week do you engage in moderate to strenuous exercise (like a brisk walk)? 2 days Minutes of Exercise per Session Not on file 04/28/2023 Hunger Vital Sign Answer Date Recorded Within the past 12 months, y ou worried that your food would run out before you got the money to buy more. Never true 04/28/20 23 Ran Out of Food in the Last Year Not on file 04/28/2023 PRAPARE - Transportation Answer Date Re corded In the past 12 months, has l ack of transportation kept you from medical appointments or from getting medications? No 04/28/2023 Lack of Transportation (Non-Medical) Not on file 04/28/2023 Housing Stability Vital Sign Answer Ilya e Recorded In the last 12 months, was t here a time when you were not able to pay the mortgage or rent on time? No 04/28/2023 [address] of [address] Lived in the Last Year Not on f ile 04/28/2023 Unstable Housing in the Last Year Not on file 04/28/2023 Sexually Active Control Partners Comments Yes Male Comments No Sex and Gender Information Value Date Recorded Sex Assigned at Not on file Legal Sex Female 10:12 AM PRODUCTION SUPERVISOR Gender Identity Not on file Sexual Orientation Not on file documented as of this encounter Miscellaneous Notes * Telephone Encounter - Roseline Eduardo RN - 09/30/2023 11:39 AM CDT Medication(s) refilled and [facility] per [facility] Medication Refill Standing Order for Pediatricand Adult Patients. Requested Prescriptions Pending Prescriptions Disp Refills clopidogrel (PLAVIX) 75 MG Tablet [Pharmacy Med Name: Clopidogrel Bisulfate 75 MG Oral Tablet] 90 Tablet 0 Sig: Take 1 tablet by mouth once daily Plavix Protocol Passed - 09/30/2023 11:30 AM Passed - CBC on record in past 12 months WBC Date Value Ref Range Status 08/26/2023 13.97 (H) 4.00 - 12.00 10(3)/mcL Final WBC ESTERASE Date Value Ref Range Status 04/28/2023 Negative Negative Final RBC Date Value Ref Range Status 08/26/2023 4.34 3.80 - 5.30 10(6)/mcL Final HEMATOCRIT (HCT) Date Value Ref Range Status 08/26/2023 40.2 36.0 - 47.0 % Final HEMOGLOBIN (HGB) Date Value Ref Range Status 08/26/2023 13.5 12.0 - 15.8 g/dL Final MCV Date Value Ref Range Status 08/26/2023 92.6 82.0 - 96.0 fL Final MCH Date Value Ref Range Status 08/26/2023 31.1 26.0 - 34.0 pg Final MCHC Date Value Ref Range Status 08/26/2023 33.6 31.0 - 36.0 g/dL Final Passed - Visit with relevant provider in past 12 months or upcoming 90 days Recent Visits Date Type Provider Dept 08/26/23 Office Visit Troy Dunn MD [facility] 04/28/23 Office Visit Troy Dunn MD [facility] 12/28/22 Office Visit [facility] Showing recent visits within past 365 days and meeting all other requirements Future Appointments No visits were found meeting these conditions. Showing future appointments within next 90 days and meeting all other requirements nitroGLYCERIN (NITROSTAT) 0.3 MG SL Tablet [Pharmacy Med Name: Nitroglycerin 0.3 MG Sublingual Tablet Sublingual] 100 Tablet 0 Sig: DISSOLVE ONE TABLET UNDER THE TONGUE EVERY 5 MINUTES NEEDED FOR CHEST PAIN. DO NOT EXCEED ATOTAL OF 3 DOSES IN 15 MINUTES Nitrates Protocol Passed - 09/30/2023 11:30 AM Passed - Visit with relevant provider in past year or upcoming 90 days Recent Visits Date Type Provider Dept 08/26/23 Office Visit Troy Dunn MD [facility] 04/28/23 Office Visit Troy Dunn MD [facility] 12/28/22 Office Visit Troy Dunn MD [facility] Showing recent visits within past 365 days and meeting all other requirements Future Appointments No visits were found meeting these conditions. Showing future appointments within next 90 days and meeting all other requirements documented in this encounter Plan of Treatment Upcoming Encounters Date Type Department Care Team (Late st Contact Info) Description 08/23/2024 10:30 AM CDT Lab [facility] #[address] [address] [facility] 08/30/2024 12:30 PM CDT [facility] - Family Medicine - [place] #2 [place] [address] Troy Dunn MD #[address] [address] documented as of this encounter Visit Diagnoses Not on filedocumented in this encounter Additional Health Concerns Assessment Noted Time PHQ-9 Depression Total Score: 0 08/26/19 11:06 AM CDT documented as of this encounter Care Teams Hot Air Furnace Installer And Repairer Relationship Specialty Start Date End Date Troy Dunn MD #2 [facility] [address] [place] [address] PCP - General Family Medicine 12/28/22 Hussain Torres MD #[address] [address] Consulting Physician Colon and Rectal Surgery 04/12/23 documented as of this encounter
--- OUTSIDE RECORDS SUMMARY | 2024-08-22 16:00 | XMS_ITS | Encounter Summary ---
Author Organization [facility] Address [address] [facility] [place] [address] Phone Care Team Providers Care Home Care Music Therapist Name Role Phone Dwayne Torres MD Primary Care Provider Troy Dunn MD Primary Care Provider Hussain Torres MD Unavailable Reason for Visit * Reason Comments Medication Refill Encounter Details Date Type Department Care Team (Late st Contact Info) Description 11/01/2020 Refill [facility] - Primary Care - [place] [address] [place] [id number] Ciera Munoz Anitha, PAC [address] [place], [place] [id number] Medication Refill Social History Tobacco Use Types Packs/Day Years Used Date Smoking Tobacco: Every Day Cigarettes Smokeless Tobacco: Never Comments No Sex and Gender Information Value Date Recorded Sex Assigned at Not on file Legal Sex Female 10:12 AM TWISTING DEPARTMENT END FINDER Gender Identity Not on file Sexual Orientation Not on file documented as of this encounter Miscellaneous Notes * Telephone Encounter - Yoko Dwyer RN - 11/04/2020 1:42 PM CDT Pt no longer under PCP's care. * Telephone Encounter - Jessica Oliver CMA - 11/04/2020 9:24 AM CDT Not a GI medication, forwarded to primary documented in this encounter Plan of Treatment Upcoming Encounters Date Type Department Care Team (Late st Contact Info) Description 08/23/2024 10:30 AM CDT Lab [facility] #[address] [facility] [address] [place] [address] [facility] Lab/Ancillary 08/30/2024 12:30 PM CDT Office Visit [facility] - Family Medicine - [place] #2 [place] [address] Troy Dunn MD #2 [facility] [address] [place] [address] documented as of this encounter Visit Diagnoses Diagnosis Right foot pain Pain in limb documented in this encounter Care Teams Home Care Music Therapist Relationship Specialty Start Date End Date Dwayne Torres MD [address] [place] [address] PCP - General Internal Medicine 05/21/19 12/27/22 Troy Dunn MD #[address] [address] PCP - General Family Medicine 12/28/22 Hussain Torres MD #2 [facility] [address] [place] [address] Consulting Physician Colon and Rectal Surgery 04/12/23 documented as of this encounter
--- OUTSIDE RECORDS SUMMARY | 2024-08-22 16:00 | XMS_ITS | Encounter Summary ---
Author Organization [facility] Address [address] [place] [address] Phone Care Team Providers Care Inventory Control Planner Name Role Phone Dwayne Torres MD Primary Care Provider [phone] Troy Dunn MD Primary Care Provider [phone] Hussain Torres MD Unavailable Reason for Visit * Reason Comments Medication Refill Encounter Details Date Type Department Care Team (Late st Contact Info) Description [facility]20[facility] [place] [address] [place] [address] Kelsi Reyes MD [address] [place] [address] Medication Refill Social History Tobacco Use Types Packs/Day Years Used Date Smoking Tobacco: Every Day Cigarettes Smokeless Tobacco: Never Comments No Sex and Gender Information Value Date Recorded Sex Assigned at Not on file 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 Gender Identity Not on file Sexual Orientation Not on file documented as of this encounter Plan of Treatment Upcoming Encounters Date Type Department Care Team (Late st Contact Info) Description 08/23/2024 10:30 AM CDT Lab [facility] [address] [facility] [address] [place] [address] [facility] Lab/Ancillary 08/30/2024 12:30 PM CDT Office Visit [facility] Medical [facility] - Family Medicine - [place] #[address] [place] [address] Troy Dunn MD #2 [facility] [address] [place] [address] documented as of this encounter Visit Diagnoses Not on filedocumented in this encounter Care Teams Inventory Control Planner Relationship Specialty Start Date End Date Dwayne Torres MD [address] [place] [address] PCP - General Internal Medicine 05/21/19 12/27/22 Troy [facility] [address] PCP - General Family Medicine 12/28/22 Hussain Torres MD #2 [facility] [address] [place] [address] Consulting Physician Colon and Rectal Surgery 04/12/23 documented as of this encounter
--- OUTSIDE RECORDS SUMMARY | 2024-08-22 16:00 | XMS_ITS | Encounter Summary ---
Author Organization [facility] Address [address] [place] [address] Phone Care Team Providers Care Staff Midwife Name Role Phone Dwayne Torres MD Primary Care Provider [phone] Troy Dunn MD Primary Care Provider [phone] Hussain Torres MD Unavailable Reason for Visit * Reason Comments Medication Refill Encounter Details Date Type Department Care Team (Late st Contact Info) Description [facility] [place] [address] [place] [address] Kelsi Reyes MD [address] [place] [address] Medication Refill Social History Tobacco Use Types Packs/Day Years Used Date Smoking Tobacco: Every Day Cigarettes Smokeless Tobacco: Never Comments No Sex and Gender Information Value Date Recorded Sex Assigned at Not on file 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 Gender Identity Not on file Sexual Orientation Not on file documented as of this encounter Plan of Treatment Upcoming Encounters Date Type Department Care Team (Late st Contact Info) Description 08/23/2024 10:30 AM CDT Lab [facility] [address] [facility] [address] [place] [address] [facility]ht[facility] Boykin Lab/Ancillary 08/30/2024 12:30 PM CDT Office Visit [facility] Medical [facility] - Family Medicine - [place] [address] [place] [address] Troy Dunn MD #2 [facility] [address] [place] [address] documented as of this encounter Visit Diagnoses Not on filedocumented in this encounter Care Teams Staff Midwife Relationship Specialty Start Date End Date Dwayne Torres MD [address] [place] [address] PCP - General Internal Medicine 05/21/19 12/27/22 Troy Dunn MD [facility] [facility] [address] PCP - General Family Medicine 12/28/22 Hussain Torres MD #2 [facility] [address] [place] [address] Consulting Physician Colon and Rectal Surgery 04/12/23 documented as of this encounter
--- OUTSIDE RECORDS SUMMARY | 2024-08-22 16:00 | XMS_ITS | Encounter Summary ---
Author Organization [facility] Address [address] [place] [address] Phone Care Team Providers Care Manager Science Name Role Phone Dwayne Torres MD Primary Care Provider [phone] Troy Dunn MD Primary Care Provider [phone] Hussain Torres MD Unavailable Reason for Visit * Reason Comments Medication Refill Encounter Details Date Type Department Care Team (Late st Contact Info) Description [facility]/12[facility]20[facility] [place] [address] [place] [address] Kelsi Reyes MD [address] [place] [address] Medication Refill Social History Tobacco Use Types Packs/Day Years Used Date Smoking Tobacco: Every Day Cigarettes Smokeless Tobacco: Never Comments No Sex and Gender Information Value Date Recorded Sex Assigned at Not on file 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 Gender Identity Not on file Sexual Orientation Not on file documented as of this encounter Plan of Treatment Upcoming Encounters Date Type Department Care Team (Late st Contact Info) Description 08/23/2024 10:30 AM CDT Lab [facility] [address] [facility] [address] [place] [address] Mushtaq Boykin Lab/Ancillary 08/30/2024 12:30 PM CDT Office Visit [facility] Medical [facility] - Family Medicine [facility] #[address] [place] [address] Troy Dunn MD #2 [facility] [address] [place] [address] documented as of this encounter Visit Diagnoses Not on filedocumented in this encounter Care Teams Manager Science Relationship Specialty Start Date End Date Dwayne Torres MD [address] [place] [address] PCP - General Internal Medicine 05/21/19 12/27/22 Troy Dunn MD [facility] [address] PCP - General Family Medicine 12/28/22 Hussain Torres MD #2 [facility] [address] [place] [address] Consulting Physician Colon and Rectal Surgery 04/12/23 documented as of this encounter
--- OUTSIDE RECORDS SUMMARY | 2024-08-22 16:00 | XMS_ITS | Data Portability ---
Author Organization [facility] [employer], Main Office Address [address] [place] [address] Assessment No assessment recorded. Plan of Treatment Reminders Order Date Submit Date Provider Last Modified By Organization Details Last Modified Time Details Appointments None recorded. Lab CMP, serum or plasma 2022 023 harvey [facility], [address], [place], [address], 3 10:16:23 CBC w/ auto diff 2022 023 harvey [facility], [address], [place], [address], 3 10:16:23 TSH, serum or plasma 2022 023 [facility], [address], [place], [address], 3 10:16:23 T4, free, serum 2022 023 [facility], [address], [place], [address], 3 10:16:23 Referral gynecologis t referral 2022 023 harvey Osman MD, [facility] [address], [place], [address], 3 14:19:29 cardiologis t referral 2022 023 ABBY Muñiz MD, [address] , [address], [place], [address], 3 17:31:24 Procedures colonoscopy screening (PROC) 2022 023 [email or web address] Dutch Bravo MD, [address], [address], [place], [address], 3 10:17:10 Surgeries None recorded. Imaging None recorded. Medication Orders None recorded. Patient TargetsNo targets recorded. Patient InstructionsNo instructions recorded. Reason for Referral Manager Sourcing Referral for Co ronary arteriosclerosis Referring Physician: Samy Spencer, Internal Medicine, Encounter Date: 07/15/2022 Manager Recruitment Referral for Gy necologic examination Referring Physician: Samy Spencer, Internal Medicine, Encounter Date: 07/15/2022 Results Created Date Observation Date Name Description Value Unit Range Abnormal Flag Note LastModifiedBy Organization Detail LastModifiedTime 01/09/20 22 01/08/2022 MAMMO , scree nakita, digit al, bilat eral No observ ation record ed. [id number] [facility] Orders [address] [place], [address], 07/01/2022 01:33:59 01/09/20 22 01/08/2022 screcatarina mace breas t preet, bilat [facility] [address] [facility] [place] [address] Patien t Name: ETHEL AVILA Access ion #: [id number] Sex: F : 1955 0 Locati on: RAD Attend ing Physic mariaelena: SANDEE HANSONTFRANSISCA De León Orderi ng Physic mariaelena: JACQUELINE HANSON Exam Date: 01/09/20 22 1:45 PM Exam Name: MG SCRN BREAST PREET BILAT Admitt ing Diagno sis(es ): MAMMOG DIAMOND REPORT - FINAL EXAM: MG SCRN BREAST PREET BILAT HISTOR Y: SCREEN ING MAMMOG GRAEME COMPAR DEREK: None TECHNI QUE: Bilate ral CC and MLO views of the breast s were perfor med. Digita l Mammog diamond images were obtain ed. CAD (compu ter assist ed detect ion) was utiliz ed. 3D Digita l breast tomosy nthesi s was perfor med and used in the interp retati on of images . FINDIN GS: There are scatte red areas of fibrog landul ar densit y. Right breast : There is an area of asymme try within the anteri or supero latera l Page 1 of 2 [facility] Name: ETHEL AVILA Access ion #: [id number] Sex: F : 1955 0 Exam Date: 01/09/20 1:45 PM Exam Name: MG SCRN BREAST PREET BILAT Admitt ing Diagno sis(es ): aspect of the right breast noted on the cranio caudad and mediol ateral obliqu e projec tions. There is a deep medial asymme try noted within the right breast on the cranio caudad view. Left breast : No masses , asymme tries, suspic ious calcif icatio ns, or conner ectura l distor tion are seen. IMPRES ALAINA: BIRADS 0: Assess ment incomp lete. Need additi onal imagin g evalua tion. Recomm end additi onal imagin g and ultras ound of the right breast asymme tries. Create d and electr onical ly signed by: Mitch isaac MD Signed Date: 01/09/20 5:09 PM (CT) Dictat ed by: Mitch isaac MD (CT) (CT) Page 2 of 2 [id number] [facility] (Imaging) [address] [place], [address], 07/01/2022 01:33:59 01/09/20 22 01/08/2022 DEXA, axial skele ton No observ ation record ed. [id number] [facility] (One Call Scheduling) [address] [place], [address], 07/01/2022 01:33:59 01/09/20 22 01/08/2022 DEXA, axial skele ton [facility] [address] [facility] [place] [address] [phone] Patien t Name: ETHEL AVILA Access ion #: [id number] Sex: F : 1955 0 Locati on: RAD Attend ing Physic mariaelena: JACQUELINE HANSON Orderi ng Physic mariaelena: JACQUELINE HANSON Exam Date: 01/09/20 1:45 PM Exam Name: XR DEXA-H IPS PELVIS SPINE Admitt ing Diagno sis(es ): RADIOL OGY REPORT - FINAL EXAM: XR DEXA-H IPS PELVIS SPINE HISTOR Y: MENOPA USAL COMPAR DEREK: None. TECHNI QUE: TECHNI QUE: Dual energy x-ray of absorp tion examin ation of the bilate ral hips and lumbar spine in AP projec tion was perfor med. FINDIN GS: Lumbar Spine (L1-L4 ): The mean bone minera l densit y is 1.104 g/cm2 hydrox yapati te, correl ating with a T-scor e of -0.7. Bilate ral hips: The mean bone minera l densit y is 0.880 g/cm2 calciu m hydrox yapati te, correl ating with a T-scor e of -1.0. Page 1 of 2 [facility] t Name: ETHEL AVILA Access ion #: [id number] Sex: F : 1955 0 Exam Date: 01/09/20 1:45 PM Exam Name: XR DEXA-H IPS PELVIS SPINE Admitt ing Diagno sis(es ): IMPRES ALAINA: 1. The patien t's lumbar spine T-scor e is consis tent with a normal bone densit y. 2. The patien t's bilate ral hip T-scor e is consis tent with osteop enia. Accord ing to the World Health Organi zation , T-scor e values greate r than -1.0 are normal , values betwee n -1.0 and -2.5 are catego rized as osteop enia, T-scor e of -2.5 or more are catego rized as osteop orosis . Create d and electr onical ly signed by: Mitch isaac MD Signed Date: 01/09/20 2:26 PM (CT) Dictat ed by: Mitch isaac MD (CT) (CT) Page 2 of 2 [id number] [facility] (Imaging) [address] [place], [address], 07/01/2022 01:33:59 04/09/20 22 04/09/2022 US, thyro id No observ ation record ed. [id number] [facility] Orders [address] [place], [address], 07/01/2022 01:33:59 04/09/20 22 04/09/2022 MAMMO , diagn ostic , digit al, unila teral , w/ CAD [facility] [address] [place] [address] [phone] Patien t Name: ETHEL AVILA Access ion #: [id number] Sex: F : 1955 1 Locati on: RAD Attend ing Physic mariaelena: JACQUELINE HANSON Orderi ng Physic mariaelena: JACQUELINE HANSON Exam Date: 022 10:36 AM Exam Name: MG MAMMO DIGITA L UNILAT RT Admitt ing Diagno sis(es ): MAMMOG DIAMOND REPORT - FINAL EXAM: MG MAMMO DIGITA L UNILAT RT HISTOR Y: call back 66-yea r-old female with right breast focal asymme try seen on screen ing mammog graeme. COMPAR DEREK: Mammog diamond dated 2021. TECHNI QUE: Right breast spot compre ssion CC and MLO views and rolled CC views were perfor med. Digita l Mammog diamond images were obtain ed. FINDIN GS: The right breast asymme try seen on recent mammog diamond resolv es on the rolled and spot compre ssion views. No suspic ious findin gs are identi fied here. IMPRES ALAINA: Page [facility] 2 [facility] Jimmy wyatt Name: ETHEL AVILA Access ion #: [id number] Sex: F : 1955 1 Exam Date: 022 10:36 AM Exam Name: MG MAMMO DIGITA L UNILAT RT Admitt ing Diagno sis(es ): BI-RAD S 1. Negati ve. Recomm end return ing to annual screen ing mammog diamond. Accord ing to the [employer], yearly mammog florian are recomm ended starti ng at age 40 and contin uing as long as the woman is in good health . Clinic al Breast Exam should be part of the period ic health exam-a bout every 3 years for women in their 20s and 30s and every year for women 40 and over. Breast self-e xam is an option for women in their 20s. Any breast change noted on the breast self-e xam she would be report ed prompt ly to the [facility]. A negati ve mammog diamond report should not discou rage follow -up or biopsy of a clinic ally signif icant findin g and/or abnorm ality. Dense breast tissue may obscur e small neopla sms. This [facility] has been entere d into a mammog diamond remind er system with a target date for her next mammog graeme. Create d and electr onical ly signed by: Stas elmore MD Signed Date: 10:53 AM (CT) Dictat ed by: Stas elmore MD DD: 10:53 AM (CT) DT: 10:53 AM (CT) Page 2 of 2 [id number] [facility] (Imaging) [address], [place], [address], 07/01/2022 01:33:59 04/09/20 22 04/09/2022 US, head + neck, soft tissu e [facility] [address] [facility] [address], [place] [address] Patien t Name: ETHEL AVILA Access ion #: [id number] Sex: F : 1955 1 Locati on: RAD Attend ing Physic mariaelena: JACQUELINE HANSON Orderi ng Physic mariaelena: JACQUELINE HANSON Exam Date: 10:54 AM Exam Name: US NECK HEAD SOFT TISSUE Admitt ing Diagno sis(es ): RADIOL OGY REPORT - FINAL EXAM: US NECK HEAD SOFT TISSUE HISTOR Y: hypoth yroidi sm 66-yea r-old female with hypoth yroidi sm. COMPAR DEREK: None availa ble. TECHNI QUE: Ultras ound examin ation of the thyroi d was perfor med. FINDIN GS: The right lobe of the thyroi d measur es 3.6 x 1.1 x 1.4 cm. The left lobe of the thyroi d measur es 4.2 x 1.3 x 1.4 cm. The thyroi d isthmu s measur es 1.6 mm AP. The thyroi d parenc hyma is diffus jonah hetero geneou s bilate rally. There is a 4.5 mm solid hypoec hoic nodule with smooth margin s, wider than tall on all images . There is a hypoec hoic solid nodule in the inferi or aspect of the left lobe of the thyroi d with an echoge sachin focus presen t. There are Page 1 of 2 [facility] Patien t Name: ETHEL AVILA Access ion #: [id number] Sex: F : 1955 1 Exam Date: 10:54 AM Exam Name: US NECK HEAD SOFT TISSUE Admitt ing Diagno sis(es ): echoge sachin foci in both lobes of the thyroi d. No abnorm al color Dopple r blood flow is identi fied bilate rally. IMPRES ALAINA: Multin odular thyroi d with [address] subcen timete r solid nodule s in the left lobe of the thyroi d which are TI-RAD S 4 lesion s, modera tely suspic ious. FNA is not recomm ended at this time, as neithe r of these lesion s measur es greate r than 1.5 cm. Consid er follow -up thyroi d ultras ound examin ation in 1-2 years to re-radha georgina for stabil ity of this appear ance. Create d and electr onical ly signed by: Stas elmore MD Signed Date: 3:00 PM (CT) Dictat ed by: Stas elmore MD DD: 3:00 PM (CT) DT: 3:00 PM (CT) Page 2 of 2 [id number] [facility] (Imaging) [address] [place], [address], 07/01/2022 01:33:59 09/03/1909/02/2022 US, echoc ardio gram No observ ation record ed. roshan [facility] [address], [place], [address], 09/09/2022 13:16:35 09/03/1909/02/2022 US, suzi demarco id arter y No observ ation record ed. roshan [facility] [address], [place], [address], 09/09/2022 13:16:36 11/21/19 24 11/21/2023 imagi ng/di agnos tic resul t No observ ation record ed. [facility] [address], [place], [address], 11/21/2023 13:46:36 11/21/19 24 11/21/2023 imagi ng/di agnos tic resul t No observ ation record ed. [facility] [address], [place], [address], 11/21/2023 14:04:28 Result Notes None recorded. Problems Name Problem SNOMED Code Status Onset Date Resolution Date Notes Provider Name and Address Organization Details Recorded Time Mammography abnormal 279941573 Active 2021 Not Available [facility] 3 10:34:50 Hypothyroidis m 91076207 Active 2021 Not Available [facility] 3 10:34:50 Essential hypertension 34894140 Active 2022 [facility] Available [facility] 3 10:34:50 Hyperlipidemi a 25271460 Active 2022 Not Available [facility] 3 10:34:50 Chronic pain 73260166 Active 2022 Not Available [facility] 3 10:34:50 Coronary arteriosclero sis 05527942 Active 2022 Not Available [facility] 3 10:34:50 Moderate recurrent major depression 26691566 Active 2022 Not Available [facility] 3 10:34:50 Skin lesion 92211117 Active 2022 Not Available [facility] 3 10:34:50 Problem Notes None recorded. Procedures Surgical History Date Name Laterality Status Provider Name and Address Organization Details Recorded Time 03/17/20 22 excision of malignant neoplasm completed Not Available [facility] 07/01/2022 01:32:30 Appendectomy completed Not Available [facility] 07/01/2022 01:32:30 Cholecystectomy completed Not Available [facility] 07/01/2022 01:32:30 open heart surgery completed Not Available [facility] 07/01/2022 01:32:30 Carotid Endarterectomy completed Not Available [facility] 07/01/2022 01:32:30 Kidney completed Not Available [facility] 07/01/2022 01:32:30 section completed Not Available [facility] 07/01/2022 01:32:30 Imaging Results Imaging Date Name Status LastModified by Organization Details LastModified Time 01/08/2022 MAMMO, screening, digital, bilateral completed [id number] [facility] On [facility] Orders [address] [place], [address], 07/01/2022 01:33:59 01/08/2022 screening breast preet, bilat completed [id number] [facility] (Imaging) [address] [place], [address], 07/01/2022 01:33:59 04/09/2022 US, thyroid completed [id number] [facility] On [facility] Orders [address] [place], [address], 07/01/2022 01:33:59 04/09/2022 MAMMO, diagnostic, digital, unilateral, w/ CAD completed [id number] [facility] (Imaging) [address] [place], [address], 07/01/2022 01:33:59 04/09/2022 US, head + neck, soft tissue completed [id number] [facility] (Imaging) [address] [place], [address], 07/01/2022 01:33:59 01/08/2022 DEXA, axial skeleton completed [id number] 4534 [facility] (One Call Scheduling) [address] [place], [address], 07/01/2022 01:33:59 01/08/2022 DEXA, axial skeleton completed [id number] [facility] (Imaging) [address] [place], [address], 07/01/2022 01:33:59 09/02/2022 US, echocardiogram completed [address] [facility] [address], [place], [address], 09/09/2022 13:16:35 09/02/2022 US, duplex, carotid artery completed [address] [facility] [address], [place], [address], 09/09/2022 13:16:36 11/21/2023 [facility]diagnostic [facility] [address], [place], [address], 11/21/2023 13:46:36 11/21/2023 imaging/diagnostic result active [facility] [address], [place], [address], 11/21/2023 14:04:28 Procedure Notes None recorded. Medical Equipment None Reported. Allergies No known drug allergies Medications Name Sig Start Date Stop Date Status Note LastModified by Organization Details LastModified Time carvedilol 12.5 mg tablet TAKE 1 TABLET BY MOUTH TWICE DAILY active Not Available Not Available No t Available hydrocodone 5 mg-acetamin ophen 325 mg tablet TAKE 1 TABLET BY MOUTH EVERY 4 HOURS NEEDED FOR PAIN 07/15 completed Not Available Not Available Not Available ondansetron HCl 8 mg tablet TAKE 1 TABLET EVERY 8 HOURS NEEDED NAUSEA 12/01 completed Not Available Not Available Not Available clopidogrel 75 mg tablet TAKE 1 TABLET BY MOUTH ONCE DAILY active Not Available Not Available No t Available hydrocodone 7.5 mg-acetamin ophen 325 mg tablet TAKE 1 TABLET BY MOUTH EVERY 8 HOURS NEEDED FOR PAIN 12/01 completed Not Available Not Available Not Available cephalexin 500 mg capsule TAKE 1 CAPSULE BY MOUTH 4 TIMES DAILY 12/01 completed Not Available Not Available Not Available valsartan 320 mg tablet TAKE 1 TABLET BY MOUTH ONCE DAILY 12/01 completed Not Available Not Available Not Available losartan 100 mg tablet Take 1 tablet by mouth once daily 2022 active Not Available Not Available Not Avai lable doxycycline hyclate 100 mg tablet TAKE 1 TABLET BY MOUTH TWICE DAILY FOR 7 DAYS 12/01 completed Not Available Not Available Not Available ezetimibe 10 mg tablet Take 1 tablet by mouth once daily active Not Available Not Available No t Available rosuvastati n 20 mg tablet TAKE 1 TABLET BY MOUTH ONCE DAILY. APPOINTME NT NEEDED FOR FUTURE REFILLS. active Not Available Not Available No t Available Cymbalta 60 mg capsule,del ayed release TAKE 1 CAPSULE BY MOUTH ONCE DAILY. NO ALCOHOL, DRIVING OR WITH SEDATING MEDICATIO NS. NOTIFY IF ANY CHANGE IN MOOD OR BEHAVIOR 2022 active Not Available Not Available Not Avai lable Vitals Date Recorded Body mass index (BMI) Body height Heart rate Body temperature Body weight Systolic blood pressure Diastolic blood pressure Provider Name and Address Organization Details Last Updated DateTime 2 28.9 kg/m2 157.48 cm 72 /min 97.7 [degF] 85339.5 9 g 126 mm[Hg] 62 mm[Hg] Not Available [facility] 3 01:32:43 Date Recorded Body mass index (BMI) Body height Heart rate Body temperature Body weight Systolic blood pressure Diastolic blood pressure Provider Name and Address Organization Details Last Updated DateTime 2 29.6 kg/m2 157.48 cm 78 /min 97.6 [degF] 65880.9 6 g 126 mm[Hg] 60 mm[Hg] Not Available [facility] 3 01:32:43 Date Recorded Body height Body mass index (BMI) Body weight Body temperature Heart rate Systolic blood pressure Diastolic blood pressure Provider Name and Address Organization Details Last Updated DateTime 3 157.48 cm 30.5 kg/m2 04780.9 3 g 97.6 [degF] 72 /min 130 mm[Hg] 60 mm[Hg] [address] [place] [facility] [place] [facility] 3 11:53:28 Social History Question Answer Notes LastModified by Organization Details LastModified Time Tobacco Smoking Status Current Every Day Smoker Not Available [facility] 07/01/2022 01:32:03 Do You Have An Advance Directive? No MIGRATION.0301 [id number] Information not available 07/01/2022 What Is Your Level Of Alcohol Consumption? Occasional MIGRATION.0301 [id number] Information not available 07/01/2022 Do You Wear A Helmet When Biking? Yes MIGRATION.0301 619089 Information not available 07/01/2022 Are You Blind Or Do You Have Difficulty Seeing? No MIGRATION.0301 653009 Information not available 07/01/2022 What Is Your Level Of Caffeine Consumption? Moderate MIGRATION.0301 044027 Information not available 07/01/2022 In The 14 Days Before Symptom Onset, Have You Had Close Contact With A Laboratory-conf irmed COVID-19 While That Case Was Ill? No MIGRATION.0301 376021 Information not available 07/01/2022 In The 14 Days Before Symptom Onset, Have You Had Close Contact With A Person Who Is Under Investigation For COVID-19 While That Person Was Ill? No MIGRATION.0301 687384 Information not available 07/01/2022 Are You Deaf Or Do You Have Serious Difficulty Hearing? No MIGRATION.030 684169 Information not available 07/01/2022 What Type Of Diet Are You Following? REGULAR MIGRATION.030 224444 Information not available 07/01/2022 What Is The Highest Grade Or Level Of School You Have Completed Or The Highest Degree You Have Received? [id number] MIGRATION.030 743025 Information not available 07/01/2022 What Is Your Occupation? [employer] MIGRATION.030 473221 Information not available 07/01/2022 Have There Been Any Changes To Your Family Or Social Situation? No MIGRATION.0301 022294 Information not available 07/01/2022 What Is The Fluoride Status Of Your Home? Unknown MIGRATION.030 979677 Information not available 07/01/2022 Are There Any Guns Present In Your Home? Yes MIGRATION.0301 [id number] Information not available 07/01/2022 Do You Use Insect Repellent Routinely? No MIGRATION.0301 072751 Information not available 07/01/2022 Where Do You Live? SingleLevelHouse MIGRATION.0301 087861 Information not available 07/01/2022 Do You Have A Medical Power Of Surgical Services Tech? No MIGRATION.0301 837450 Information not available 07/01/2022 What Was The Date Of Your Most Recent Tobacco Screening? 07/15/2022 Information not available 07/15/2022 Have You Ever Been Counseled For Unhealthy Alcohol Use? No MIGRATION.0301 684329 Information not available 07/01/2022 Do You Have Any Pets? No MIGRATION.0301 617365 Information not available 07/01/2022 What Is Your Relationship Status? MIGRATION.0301 422213 Information not available 07/01/2022 Do You Use Your Seat Belt Or Car Seat Routinely? Yes MIGRATION.0301 748987 Information not available 07/01/2022 Do You Have Smoke And Carbon Monoxide Detectors In Your Home? Yes MIGRATION.0301 252269 Information not available 07/01/2022 At What Age Did You Start Smoking Tobacco? 60 MIGRATION.0301 940204 Information not available 07/01/2022 Are You Passively Exposed To Smoke? Yes MIGRATION.0301 878139 Information not available 07/01/2022 Are There Any Smokers In Your House? Yes MIGRATION.0301 239223 Information not available 07/01/2022 How Much Tobacco Do You Smoke? 1 PPD Increased From 1/2ppd Information not available 07/15/2022 What Types Of Sporting Activities Do You Participate In? None MIGRATION.0301 463722 Information not available 07/01/2022 Do You Feel Stressed (tense, Restless, Nervous, Or Anxious, Or Unable To Sleep At Night)? [id number] MIGRATION.0301 763401 Information not available 07/01/2022 Do You Use Any Illicit Or Recreational Drugs? No MIGRATION.0301 167545 Information not available 07/01/2022 Do You Use Sunscreen Routinely? Yes MIGRATION.0301 450345 Information not available 07/01/2022 Have You Recently Traveled Abroad? No MIGRATION.0301 113579 Information not available 07/01/2022 Do You Have Any Dietary Restrictions? No MIGRATION.0301 979932 Information not available 07/01/2022 Do You Or Have You Ever Used Any Other Forms Of Tobacco Or Nicotine? No MIGRATION.0301 641834 Information not available 07/01/2022 Sex: Female Functional Status Question Answer Note LastModified by Organizat ion Details LastModified Time Do you have difficulty walking or climbing stairs? No MIGRATION.4393219 026 Information not available 07/01/2022 Do you have transportation difficulties? No MIGRATION.4176759 026 Information not available 07/01/2022 Are you able to walk? YESWOREST MIGRATION.0143571 026 Information not available 07/01/2022 Do you have difficulty doing errands alone? No MIGRATION.7918812 026 Information not available 07/01/2022 Are you able to care for yourself? Yes MIGRATION.0593684 026 Information not available 07/01/2022 Do you have difficulty dressing or bathing? No MIGRATION.8335577 026 Information not available 07/01/2022 What is your exercise level? Occasional MIGRATION.4869969 026 Information not available 07/01/2022 Mental Status Question Answer Note LastModified by Organizat ion Details LastModified Time Do you have difficulty concentrating, remembering or making decisions? No MIGRATION.[id number] 6 Information not available 07/01/2022 Family History Relationship Description Onset Age of this Age Resolved Age Notes LastModified by Organization Details LastModified Time Mother Heart disease MIGRATION.079 [id number] Not available 07/01/2022 01:32:31 Brother Heart disease MIGRATION.910 [id number] Not available 07/01/2022 01:32:31 Brother Mesothelioma (malignant, clinical disorder) MIGRATION.901 [id number] Not available 07/01/2022 01:32:31 Sister Heart disease 2 sister s MIGRATION.642 [id number] Not available 07/01/2022 01:32:31 Sister Diabetes mellitus MIGRATION.676 [id number] Not available 07/01/2022 01:32:31 Maternal Grandmother Diabetes mellitus MIGRATION.203 [id number] Not available 07/01/2022 01:32:31 Paternal Grandmother Diabetes mellitus MIGRATION.184 [id number] Not available 07/01/2022 01:32:31 Medical History Condition Response NERVE DISEASE N BLINDNESS N RHEUMATIC FEVER N KIDNEY STONES N BLADDER PROBLEMS N MRSA N OTHER # 1 N POLIO N LUNG DISEASE/DISORDER N HISTORY OF DRUG ABUSE N RADIATION / CHEMOTHERAPY N COPD N Other # 2 N BLOOD DISEASES N EAR OR HEARING PROBLEMS N MUMPS N SHINGLES N BOWEL PROBLEMS N DEPRESSION (INCLUDING POST ) Y STROKE/TIA N ULCERS N BENIGN PROSTATIC HYPERPLASIA N MEASLES N HYPOTENSION N MYOCARDIAL INFARCTION N OBESITY N GERD/NAUSEA N ANEURYSM N URINARY/BLADDER/KIDNEY PROBLEMS N CORONARY ARTERY DISEASE (CAD) Y ADDICTION CONCERNS N ENDOMETRIOSIS N Impotence N USE OF BLOOD THINNERS Y SKIN PROBLEMS N GASTROINTESTINAL DISORDER N PERIPHERAL VASCULAR DISEASE N MUSCLE,JOINT OR BONE PROBLEMS N GASTROINTESTINAL BLEEDING N BLOOD CLOTS N ASTHMA N CATARACTS N ERECTILE DYSFUNCTION N VARICOSITIES N GI PROBLEMS N Low Testosterone N INFERTILITY N AIDS/HIV N CHEMOTHERAPY / RADIATION N LIVER DISEASE N MALE HYPOGONADISM N HYPERTENSION Y Deficiency N TOURETTE'S N ANXIETY DISORDER N BLOOD TRANSFUSION N ANEMIA/BLOOD DISORDER N CHRONIC EAR INFECTIONS N BRONCHITIS N TUBERCULOSIS N GLAUCOMA N FOOT PROBLEM N DIVERTICULITIS N CHICKENPOX N SLEEP APNEA N INFECTIOUS DISEASE N HEART ARRHYTHMIA N PROSTATE N INSOMNIA N HIGH CHOLESTEROL / HYPERLIPIDEMIA Y HYPERTHYROIDISM N EYE PROBLEMS N EDEMA N CHRONIC PAIN SYNDROME Y HYPOTHYROIDISM N CAROTID BLOCKAGE Y CONSTIPATION N BACK / NECK PROBLEMS N ATHEROSCLEROSIS N BREAST PROBLEMS N DIALYSIS N ECZEMA N OSTEOPOROSIS N ARTHRITIS Y APPENDICITIS N DIABETES, TYPE N BAD TEETH N ENT N HEARTBURN / REFLUX N AUTISM SPECTRUM DISORDER (ASD) N HEPATITIS / LIVER DISEASE N GOUT N SLEEP DISORDER N ALZHEIMER'S DISEASE N Brain Problems N HERPES N DEMENTIA N HEADACHES/MIGRAINES N SEIZURES/EPILEPSY N VASCULAR DISEASE N PACEMAKER N Blood Disorder N DIZZINESS N HEART DISEASE/HEART PROBLEMS N KIDNEY DISEASE N MULTIPLE SCLEROSIS N CARDIAC ARRHYTHMIA N CANCER: SPECIFY Y ATRIAL FIBRILLATION N Gall Stones N PULMONARY EMBOLISM N AUTOIMMUNE DISEASE N Gynecological HistoryNo gynecological history recorded. Obstetrics History GPAL:G 0 P 0 0 0 0 Past Encounters Encounter ID Performer Location Encounter Start Date Encounter Closed Date Diagnosis/Indication Diagnosis SNOMED-CT Code Diagnosis ICD10 Code Diagnosis Note [id number] [facility] Internal Med [facility] [address] [place] [address]310-088 1 12/01/2021 00:00:00 12/01/2021 12:51:[id number] [facility] Internal Med [address] [address] 1 03/18/2022 00:00:00 03/18/2022 12:23:48 [id number] Samy de león MD [facility] Internal Med [facility] [address] [place] [address] [id number] 1 07/15/2022 11:43:35 07/15/2022 12:15:56 Screening - NAD 085997478 Z13.9 C-scope: Get this done if not done Mammogram: Birads 0, get R breast USMammogra m: 04/09/2022 : Neg DEXA: 01/08/2022 : Osteopenia , ca and vit d PAP: Get this Get yearly flu shotGet tdap if not doneGet COVID 19 vaccineGet shingrixUT D on PCV #23 02/14/2020 RTC in 3 months, do labsER if worseShe did verbalize her understand ing of the above Essential hypertension 05985313 I10 On coreg 12.5mg bid, renewed 12/01/2021 On plavix 75mg dailyOn losartan 100mg daily Get labs Hyperlipidemia 86714993 E78.5 On crestor 20mg dailyOn zetia 10mg daily Get labs Chronic pain 55114349 G8 9.29 On hydrocodon e, given by her prior PCP, last filled on 11/17/2021 Advised that I am unable to fill any controlled medication s including opiatesShe must see pain management Not on hydrocodon e at this time 07/15/2022 Coronary arteriosclerosis 90207304 I25.10 S/p CABG and s/p stentsOn plavixGet a referral to Dr Muñiz SL Dr Muñiz SL 01/20/2022 , f/u in 6 months Moderate r ecurrent major depression 72285784 F33.1 On cymbalta 60mg dailyDoes well, renewed 12/01/2021 Not suicidal or homicidalD eclines any referrals to psychiatry Hypothyroidism 23526049 E03.9 Repeat the labsGet US thyroid Skin lesion 13739941 L98 .9 S/p surgery done by a derm at [place], [place], she made the apt her self Gynecologi c examination 31621530 Z01.419 Screening for malignant neoplasm of colon 102382677 Z12.11 Health Concerns Section Related Observation LastModified by Organization Detai ls LastModified Time None Recorded Concern Status LastModified by Organization Details LastModified Time None Recorded Advance Directives Directive N: Payers Encounter Date Sequence Insurance Name Policy Number Policy Sterling Covered Member ID Sterling Member ID Guarantor Name 07/15/2022 1 [employer] (MEDICARE REPLACEMENT PPO) [id number] Ethel Beckwith [id number] Ethel Beckwith Notes Date Note Type Note Provider Name and Address Organization Details Recorded Time 3 text/html OV 12/01/2021:Here to establish carePast Hx:CADHTNHLDChronic painDepressionReviewed social family and surgical historyHere to discuss above, della [place] feels wellOV 03/18/2022:Here for her f/u apt, she is doing well, did do the TSH OV 07/15/2022:Here for her f/u apt, she is well, no new labs Samy Spencer MD [address] [facility], [address], [place], [address], [place] [facility] 07/15/2022 13:58:54 OBGyn Episode No OBEpisode recorded.
--- OUTSIDE RECORDS SUMMARY | 2024-08-22 16:00 | XMS_ITS | Encounter Summary ---
Author Organization [facility] Address [address] [place] [address] Phone Care Team Providers Care Interpreter For The Deaf Name Role Phone Dwayne Torres MD Primary Care Provider [phone] Troy Dunn MD Primary Care Provider [phone] Hussain Torres MD Unavailable Reason for Visit * Reason Comments Medication Refill Encounter Details Date Type Department Care Team (Late st Contact Info) Description 05/22/2021 Refill [facility] - Primary Care - [place] [address] [place] [address] Kelsi Reyes MD [address] [place] [address] Medication Refill Social History Tobacco Use Types Packs/Day Years Used Date Smoking Tobacco: Every Day Cigarettes Smokeless Tobacco: Never Comments No Sex and Gender Information Value Date Recorded Sex Assigned at Not on file 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 Gender Identity Not on file Sexual Orientation Not on file documented as of this encounter Miscellaneous Notes * Telephone Encounter - Yoko Dwyer RN - 05/22/2021 10:42 AM CST Pt pcp is Dwayne Torres MD LE PREPARATION SUPERVISOR documented in this encounter Plan of Treatment Upcoming Encounters Date Type Department Care Team (Late st Contact Info) Description 08/23/2024 10:30 AM CDT Lab [facility] [address] [facility] [address] [place] [address] [facility] Boykin Lab/Ancillary 08/30/2024 12:30 PM CDT Office Visit [facility] - Family Medicine - [place] [address] [place] [address] Troy Dunn MD [facility] [address] [place] [address] documented as of this encounter Visit Diagnoses Not on filedocumented in this encounter Care Teams Interpreter For The Deaf Relationship Specialty Start Date End Date Dwayne Torres MD [address] [place] [address] PCP - General Internal Medicine 05/21/19 12/27/22 Troy Dunn MD [address] [address] PCP - General Family Medicine 12/28/22 Hussain Torres MD [address] [address] Consulting Physician Colon and Rectal Surgery 04/12/23 documented as of this encounter
--- OUTSIDE RECORDS SUMMARY | 2024-08-22 16:00 | XMS_ITS | Encounter Summary ---
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
--- OUTSIDE RECORDS SUMMARY | 2024-08-22 16:00 | XMS_ITS | Clinical Summary ---
Author Organization [facility] Address [address] [place] [address] Phone Care Team Providers Care Toppiece Chopper Name Role Phone Troy Dunn MD Primary Care Provider [phone] Hussain Torres MD Unavailable Allergies No known active allergies Medications Echinacea-Golde nseal ([employer] [facility] BLEND PO) Take by mouth daily. Active nitroGLYCERIN (NITROSTAT) 0.3 MG SL Tablet DISSOLVE ONE TABLET UNDER THE TONGUE EVERY 5 MINUTES NEEDED FOR CHEST PAIN. DO NOT EXCEED A TOTAL OF 3 DOSES IN 15 MINUTES 100 Tablet 11/25/2023 Active carvedilol (COREG) 12.5 MG Tablet Take 1 Tablet by mouth 2 times daily. 180 Tablet 2 02/27/2024 Active DULoxetine (CYMBALTA) [address] Particles Take 1 Capsule by mouth daily. 90 Capsule 3 02/27/2024 Active ezetimibe (ZETIA) 10 MG Tablet Take 1 Tablet by mouth daily. 90 Tablet 2 02/27/2024 Active losartan (COZAAR) 100 MG Tablet Take 1 Tablet by mouth daily. 90 Tablet 3 02/27/2024 Active rosuvastatin (CRESTOR) 20 MG Tablet Take 1 Tablet by mouth nightly. 90 Tablet 1 02/27/2024 Active meclizine (ANTIVERT) 25 MG Tablet Take 1 Tablet by mouth 3 times daily as needed for Dizziness. 30 Tablet 03/22/2024 Active clopidogrel (PLAVIX) 75 MG Tablet Take 1 tablet by mouth once daily 90 Tablet 1 07/20/2024 Active Active Problems No known active problems Encounters Date Type Department Care Team Description 07/20/2024 Refill [facility] - [facility] [place] [address] Troy Dunn MD Medication Refill from Last 3 Months Immunizations Immunization Administration Dates Next Due Covid-19, Mrna, Lnp-s, Pf, 3 0 Mcg/0.3 Ml Dose (Pfizer) 12/11/2020,11/20/2020 Influenza Vaccine less than 3 yrs 02/07/2024 Influenza Vaccine, Quadrivalent, PF 04/28/2023,1 ,03/14/2018 Influenza, Intradermal, Quad rivalent, Preservative Free 03/14/2018 Pneumococcal Vaccine Adult - 23 Valent 0 Pneumococcal conjugate PCV20 , polysaccharide [id number] conjugate, adjuvant, PF 04/28/2023 Family History Medical History Relation Name Comments Heart Disease Brother 1 Heart Surgery Brother 2 No Known Problems Brother 3 AIDS/HIV Brother 4 From blood larkin sfusion No Known Problems Daughter 1 No Known Problems Daughter 2 No Known Problems Daughter 3 Cancer Father Brain Heart Attack Father No Known Problems Maternal Grandfather Diabetes Maternal Grandmother Cancer Mother breast Chronic Obstructive Pulmonar y Disease Mother Emphysema Mother Heart Surgery Mother No Known Problems Paternal Grandfather Diabetes Paternal Grandmother Diabetes Sister 1 Heart Disease Sister 1 Heart Surgery Sister 1 Heart Surgery Sister 2 No Known Problems Son Relation Name Status Comments Brother 1 Alive Brother 2 Brother 3 Brother 4 Daughter 1 Alive Daughter 2 Alive Daughter 3 Alive Father Maternal Grandfather Maternal Grandmother Mother Paternal Grandfather Paternal Grandmother Sister 1 Sister 2 Alive Son Alive Social History Tobacco Use Types Packs/Day Years Used Date Smoking Tobacco: Former Cigarettes 1 53.2 1 971 - 07/25/2023 Smokeless Tobacco: Never Tobacco Cessation:Counseling Given: No Comments:Quit for 18 years in between Alcohol Use Standard Drinks/Week Comments Not Currently 0 (1 standard drink = 0.6 oz pur e alcohol) [facility] Utilities Answer Date Recorded In the past 12 months has e electric, gas, oil, or water company threatened to shut off services in your home? No 04/28/2023 Social Connection and Isolation Panel [NHANES] A nswer Date Recorded In a typical week, how many times do you talk on the phone with family, friends, or neighbors? 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 Gender Identity Not on file Sexual Orientation Not on file Last Filed Vital Signs Vital Sign Reading Time Taken Comments Blood Pressure 122/60 03/01/2024 3:19 PM CDT Pulse 62 03/01/2024 3:19 PM CDT Temperature 36.2 C (97.2 F) 03/01/2024 3:19 PM CDT Respiratory Rate 16 03/01/2024 3:19 PM CDT Oxygen Saturation 95% 03/01/2024 3:19 PM CDT Inhaled Oxygen Concentration - - Weight 75.3 kg (166 lb) 03/01/2024 3:19 PM CDT Height 157.5 cm (5' 2 ) 03/01/2024 3:19 PM CDT Body Mass Index 30.36 03/01/2024 3:19 PM CDT Plan of Treatment Upcoming Encounters Date Type Department Care Team (Late st Contact Info) Description 08/23/2024 10:30 AM CDT Lab [facility] #[address] [address] [facility] Lab/Ancillary 08/30/2024 12:30 PM CDT Office Visit [facility] - Family Medicine - [place] [address] [place] [address] Troy Dunn MD #[address] [address] Health Maintenance Due Date Last Done Comments DEXA Bone Density 1955 TdaP Immunization 1955 Cologuard 2006 Immunochemical Fecal Occult Blood 2006 Lung Cancer Screening 2006 Zoster Immunization (1 of 2) 2006 Respiratory Syncytial Virus (RSV) Immunization (Adult) (1 - Risk 60-74 years 1-dose series) 2016 Mammogram 06/08/2023 06/08/2022 SARS-COV-2 Immunization ( season) 2024 12/11/2020, 11/20/2020 Colonoscopy 05/12/2028 05/12/2023, 05/12/2023 Colorectal Cancer Screening 05/12/2028 05/12/2023 Hepatitis C Virus (HCV) Screening Completed 12/28/2022 Pneumococcal Immunization (50+ years) Completed 04/28/2023, 02/14/2020 Pneumococcal Immunization Combined Discontinued 04/28/2023, 02/14/2020 Influenza Immunization Completed , 04/28/2023, 02/14/2020, Additional history exists Hepatitis B Immunization Aged Out No longer eligible based on patient's age to complete this topic Meningococcal Immunization (ACWY) Aged Out No longer eligible based on patient's age to complete this topic Rotavirus Immunization Aged Out No lo nger eligible based on patient's age to complete this topic Procedures Procedure Name Priority Date/Time Associated Diagnosis Comments HEPATITIS C ANTIBODY Routine 12/28/2022 11:27 AM CDT Need for hepatitis C screening test from Last 3 Months or Most Recently Relevant to Health Maintenance Results * HEPATITIS C ANTIBODY (12/28/2022 11:27 AM CDT) hepatitis C antibody 0.09 <1 [facility] [id number] B 12/28/2022 9:07 PM CDT [facility] Comment: Signal/Cutoff ratio < 0.79 is Nondetected Signal/Cutoff ratio 0.80-0.99 is Grayzone Signal/Cutoff ratio > 0.99 is Detected Supplemental assays are recommended if signal/cutoff ratio is >/=1.00. Signal/cutoff ratio result >/= 5.00 is 97% predictive of positivity for recombinant immunoblot assay (RIBA) and will be reported to the [place] Department of Public Health as required. Blood Venipuncture / Unknown 12/28/2022 11:27 AM CDT 12/28/2022 11:27 AM CDT us Troy Dunn MD CHEMISTRY ORDERABLES Final Re sult [facility] [address] [place] [address], [place] from Last 3 Months or Most Recently Relevant to Health Maintenance Insurance MEDICARE C [employer] Care Teams Toppiece Chopper Relationship Specialty Start Date End Date Troy Dunn MD #[address] [facility] [address] [place] [address] PCP - General Family Medicine 12/28/22 Hussain Torres MD #2 [facility] [address] [place] [address] Consulting Physician Colon and Rectal Surgery 04/12/23
--- OUTSIDE RECORDS SUMMARY | 2024-08-22 16:00 | XMS_ITS | CONTINUITY OF CARE DOCUMENT ---
Author Name galilea calero Address Unknown Organization [facility] Address [address] [facility] [address] [place] [address] Phone [phone] Care Team Providers Care Electronic Publisher Name Role Phone Antonino CAAL, Dudley Unavailable [phone] HARINI TRENT MD Unavailable MILEY CAAL, HARINI Unavailable PROBLEMS Condition Status Date Provider Notes Hyperlipidemia active Tj Lopez Hypertension active ? Yue Huizar MD PVD unspecified active Yue Huizar MD Atherosclerosis, coronary completed 01/19 - Dudley Muñiz MD CAD (coronary artery disease )- s/p LAD stents in 2014 active Dudley Muñiz MD Tobacco abuse--quit active Tj Ahmedzai Dizziness active Dudley Muñiz MD Subclavian stenosis, R active Tj Lopez Carotid arterial disease, s/ p IDA CEA active Tj Meléndezi Carotid bruit active Tj Lopez Chest pain--stress nuc nl, 10/2023 active Tj Meléndezi Cardiology examination active Tj Meléndezi CVA active Tjclara Lopez ENCOUNTERS Date Type Provider Location Encounter Diag nosis - In-person encounter Office Visit Dudley Muñiz MD [facility] Subclavian stenosis, RCarotid arterial disease, s/p IDA CEACardiology examinationCVA - In-person encounter Office Visit Dudley Muñiz MD [facility] Tobacco abuse--quitChest pain--stress nuc nl, 10/2023 - In-person encounter Office Visit Dudley Muñiz MD [facility] Subclavian stenosis, RCarotid arterial disease, s/p IDA CEACarotid bruitChest pain--stress nuc nl, 10/2023 - In-person encounter Office Visit Dudley Muñiz MD [facility] Dizziness - In-person encounter Office Visit Dudley Muñiz MD [facility] - In-person encounter Office Visit Dudley Muñiz MD [facility] Atherosclerosis, coronaryCAD (coronary artery disease)- s/p LAD stents in 2015Tobacco abuse--quit - In-person encounter Office Visit Yue Huizar MD [facility] HypertensionPVD unspecified VITAL SIGNS Date Observation Value Provider Body Mass Index (Ratio) 30.64 kg/m2 Du Muñiz MD blood pressure, diastolic 69 mm[Hg] Luci Neal blood pressure, systolic 128 mm[Hg] Radha ramoaustin Neal oxygen saturation, oximetry 95 % [facility] 67 /[facility] respiratory rate E&M 12 /min [facility] weight E&M 173 [lb_av] Betty Neal height E&M 63 [in_i] Betty Neal blood pressure, cuff size regular sudheeremily Neal Body Mass Index (Ratio) 29.93 kg/m2 Du Muñiz MD blood pressure, diastolic 68 mm[Hg] Nissa Barroso blood pressure, systolic 116 mm[Hg] [facility] pulse rate 67 /min [facility] respiratory rate E&M 16 /min [facility] oxygen saturation, oximetry 96 % [facility] weight E&M 169 [lb_av] [facility] height E&M 63 [in_i] [facility] Body Mass Index (Ratio) 30.11 kg/m2 Du Muñiz MD pulse rate 64 /min Yduelka Saavedra blood pressure, cuff size regular Boaz moffett Saavedra blood pressure, diastolic 58 mm[Hg] [facility], systolic 118 mm[Hg] Tab itha Saavedra oxygen saturation, oximetry 97 % Yudelka Saavedra weight E&M 170 [lb_av] Yudelka Saavedra respiratory rate E&M 12 /min Yudelka Saavedra height E&M 63 [in_i] Yudelka Saavedra Body Mass Index (Ratio) 29.76 kg/m2 Du Muñiz MD respiratory rate E&M 20 /min Lacey Recinos pulse rate 69 /min Lacey Recinos blood pressure, diastolic 76 mm[Hg] marty Grisel blood pressure, systolic 141 mm[Hg] [facility] oxygen saturation, oximetry 96 % Lacey Grisel blood pressure, cuff size regular marty Recinos weight E&M 168 [lb_av] Lacey Recinos height E&M 63 [in_i] Lacey Grisel Body Mass Index (Ratio) 28.34 kg/m2 Du Muñiz MD blood pressure, diastolic 72 mm[Hg] Jinny nkLognico blood pressure, systolic 153 mm[Hg] Eleanor Lee blood pressure, cuff size large Ke rri [facility] blood pressure, diastolic 72 mm[Hg] Ke rri [facility] blood pressure, systolic 153 mm[Hg] Jose Franklin oxygen saturation, oximetry 96 % Leslie Grubersharontwylalux respiratory rate E&M 16 /min Leslie Diaz [facility] pulse rate 59 /min Leslie Caruso karan weight E&M 160 [lb_av] Leslie Caruso [facility] height E&M 63 [in_i] Leslie Caruso [facility] Body Mass Index (Ratio) 31.53 kg/m2 Leidy gonzalez Gan blood pressure, diastolic 75 mm[Hg] Boaz ferraro Gan blood pressure, systolic 131 mm[Hg] Reyes palma Gan pulse rate 62 /min Liz Gan oxygen saturation, oximetry 98 % Liz Gan respiratory rate E&M 19 /min Liz Gan weight E&M 178 [lb_av] Liz Gan height E&M 63 [in_i] Liz Gan ALLERGIES No Known Drug Allergies RESULTS Date Observation Value Provider Reference Range Interpretation Location international normalized ratio (INR) 1.0 [place] Guevara RN Normal HISTORY OF MEDICATION USE Medication Status Instructions Dates Provider Indications Com ments rosuvastatin 20 mg tablet active Tj Espinozazasudheer losartan 100 mg tablet active Tj Ahmedzai carvedilol 12.5 mg tablet active Tj Ahmedzai Cymbalta 20 mg capsule,delayed release(DR/EC) active as directed Leslie Franklin Coreg 3.125 mg tablet completed 1 tablet twice a day - Tj Ahmedzai aspirin 325 mg tablet active 1 tablet once a day Leslie Franklin Plavix 75 mg tablet active 1 tablet once a day Leslie Franklin CRESTOR TABLET completed 1 tablet once a day - Tj Ahjuliannaashlyn Zetia 10 mg tablet active 1 tablet once a day Leslie Blackgloriabeba SOCIAL HISTORY Date Observation Value Provider smoking status Never smoker Tj Lopez smoking status Never smoker Tj Ahjuliannaheidy smoking status Never smoker Tj Meléndezsudheer social history E&M S moking History: Ruel christensen has never smoked. Tj Syedjuliannaheidy smoking status Never smoker Lacey Recinos social history reviewed E&M revi ewed - no changes required Tjclara Lopez social history reviewed E&M revi ewed - no changes required Tj juliannaheidy social history E&M S moking History: Ruel christensen currently smokes every day. Tj Lopez number of years as a smoker 25 a Lesliemolly Franklin smoking history, tot al pack/day 3/4 ppd Leslie Noemi cigarette use yes Leslie Sofia wasserman smoking status Current every day smoker K elena Noemi social history reviewed E&M revi ewed - no changes required Dudley Muñiz MD social history reviewed E&M revi ewed - no changes required Yue Huizar MD smoking, year quit 2000 Liz esquivel smoking history, tot al pack/day 1pk Liz Gan cigarette use yes Liz Gan smoking status Former smoker Liz Lopes andrea FUNCTIONAL STATUS Date Observation Value Provider HRA, CV Assess/Plan, Angina (inactive) Management Plan continue current therapy Tj Lopez HRA, CV Assess/Plan, Angina (inactive) Management Plan continue current therapy jT Lopez HRA, CV Assess/Plan, Angina (inactive) Management Plan continue current therapy Tjclara Lopez HRA, CV Assess/Plan, Angina (inactive) Management Plan continue current therapy Tj Ahmedzai HRA, CV Assess/Plan, Angina (inactive) Management Plan continue current therapy Tj Ahmedzai FAMILY HISTORY Family Member Condition Full Brother Family History of Co ronary Artery Disease: Full Sister Family History of Co ronary Artery Disease: Full Sister Family History of Di abetes: Father Family History of Co ronary Artery Disease: Mother Family History of Co ronary Artery Disease: INSURANCE PROVIDERS Payer name Policy type / Coverage type [employer] party ID [employer] MEDICARE VALUE ADVANTRA PPO 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 [employer] [id number] ADVANCE DIRECTIVES Name Date DISCUSSED - NO DECISION MADE TREATMENT PLAN Date Name Performer [id number],S, Tj Ahmedza i [id number],S, Tj Ahmedza i [id number],S, Tj Ahmedza i [id number],S, Tj Ahmedza i [id number],S, Tj Ahmedza i [id number],S, Tj Ahmedza i [id number],S, Tj Ahmedza i [id number],S, Tj Ahmedza i [id number],S, Tj Ahmedza i [id number],S, Tj Ahmedza i [id number],S, Tj Ahmedza i Cardiology: B P today: 128/69 P rior BP: 116/68 (11/29/2023) Her updated medication list for this problem includes: Losartan 100 Mg Tablet (Losartan) Carvedilol 12.5 Mg Tablet (Carvedilol) Aspirin 325 Mg Tablet (Aspirin) ..... 1 tablet once a day Dudley Muñiz MD Cardiology: H er updated medication list for this problem includes: Aspirin 325 Mg Tablet (Aspirin) ..... 1 tablet once a day Plavix 75 Mg Tablet (Clopidogrel) ..... 1 tablet once a day Dudley Muñiz MD Cardiology Dudley Muñiz MD Cardiology Dudley Muñiz MD Cardiology:This visi t has been a part of the consistent, comprehensive, and ongoing management of the chronic medical condition(s) listed above for the patient. Her updated medication list for this problem includes: Carvedilol 12.5 Mg Tablet (Carvedilol) Aspirin 325 Mg Tablet (Aspirin) ..... 1 tablet once a day Plavix 75 Mg Tablet (Clopidogrel) ..... 1 tablet once a day Dudley Muñiz MD Cardiology: H er updated medication list for this problem includes: Carvedilol 12.5 Mg Tablet (Carvedilol) Aspirin 325 Mg Tablet (Aspirin) ..... 1 tablet once a day Plavix 75 Mg Tablet (Clopidogrel) ..... 1 tablet once a day T his visit has been a part of the consistent, comprehensive, and ongoing management of the chronic medical condition(s) listed above for the patient. Dudley Muñiz MD Cardiology: H er updated medication list for this problem includes: Carvedilol 12.5 Mg Tablet (Carvedilol) Aspirin 325 Mg Tablet (Aspirin) ..... 1 tablet once a day Plavix 75 Mg Tablet (Clopidogrel) ..... 1 tablet once a day Tj Lopez Cardiology: H er updated medication list for this problem includes: Carvedilol 12.5 Mg Tablet (Carvedilol) Aspirin 325 Mg Tablet (Aspirin) ..... 1 tablet once a day Plavix 75 Mg Tablet (Clopidogrel) ..... 1 tablet once a day Tj Lopez Cardiology Tj Lopez Cardiology Tj Lopez Cardiology: B P today: 116/68 P rior BP: 118/58 (10/18/2023) Her updated medication list for this problem includes: Losartan 100 Mg Tablet (Losartan) Carvedilol 12.5 Mg Tablet (Carvedilol) Aspirin 325 Mg Tablet (Aspirin) ..... 1 tablet once a day [facility] Cardiology: O rders: S tress Regadenoson (CPT-43648) [facility] Cardiology: O rders: C T Angio, Carotids (CPT-81999) C T Angio Upper Extremity (CPT-77887) C OMPREHENSIVE METABOLIC PANEL, W/EGFR (14112) C BC (INCLUDES DIFF/PLT) (6399) F ERRITIN (457) I RUSS AND TOTAL IRON BINDING CAPACITY (7573) L IPID PANEL (7600) H EMOGLOBIN A1c (496) [facility] Cardiology: O rders: C T Angio, Carotids (CPT-03568) C T Angio Upper Extremity (CPT-54328) C OMPREHENSIVE METABOLIC PANEL, W/EGFR (94646) C BC (INCLUDES DIFF/PLT) (6399) F ERRITIN (457) I RUSS AND TOTAL IRON BINDING CAPACITY (7573) L IPID PANEL (7600) H EMOGLOBIN A1c (496) [facility] Cardiology: O rders: C OMPREHENSIVE METABOLIC PANEL, W/EGFR (48649) C BC (INCLUDES DIFF/PLT) (6399) F ERRITIN (457) I RUSS AND TOTAL IRON BINDING CAPACITY (7573) L IPID PANEL (7600) H EMOGLOBIN A1c (496) [facility] Cardiology: O rders: C T Angio, Carotids (CPT-45139) C OMPREHENSIVE METABOLIC PANEL, W/EGFR (51299) C BC (INCLUDES DIFF/PLT) (6399) F ERRITIN (457) I RUSS AND TOTAL IRON BINDING CAPACITY (7573) L IPID PANEL (7600) H EMOGLOBIN A1c (496) [facility] Cardiology: O rders: C OMPREHENSIVE METABOLIC PANEL, W/EGFR (22157) C BC (INCLUDES DIFF/PLT) (6399) F ERRITIN (457) I RUSS AND TOTAL IRON BINDING CAPACITY (7573) L IPID PANEL (7600) H EMOGLOBIN A1c (496) Tj Ahmedzai Cardiology: O rders: C OMPREHENSIVE METABOLIC PANEL, W/EGFR (38087) C BC (INCLUDES DIFF/PLT) (6399) F ERRITIN (457) I RUSS AND TOTAL IRON BINDING CAPACITY (7573) L IPID PANEL (7600) H EMOGLOBIN A1c (496) Tj Ahmedzai Cardiology: O rders: C T Angio, Carotids (CPT-31897) C OMPREHENSIVE METABOLIC PANEL, W/EGFR (24691) C BC (INCLUDES DIFF/PLT) (6399) F ERRITIN (457) I RUSS AND TOTAL IRON BINDING CAPACITY (7573) L IPID PANEL (7600) H EMOGLOBIN A1c (496) Tj Ahmedzai Cardiology Tj Ahmedzai Cardiology Tj Ahmedzai Cardiology Tj Ahmedzai Cardiology Tj Ahmedzai Cardiology Tj Ahmedzai Cardiology Tj Ahmedzai Cardiology Tj Ahmedzai Cardiology Tj Ahmedzai Cardiology Tj Ahmedzai Cardiology Tj Ahmedzai Cardiology Tj Ahmedzai Hfu: H er updated medication list for this problem includes: Coreg Tabs (Carvedilol tabs) ..... 1 tab twice daily Aspirin 325 Mg Tabs (Aspirin) ..... One tab. daily Yue Huizar MD Date Name Stress Regadenoson HEMOGLOBIN A1c LIPID PANEL IRON AND TOTAL IRON BINDING CAPACITY FERRITIN CBC (INCLUDES DIFF/P LT) COMPREHENSIVE METABO LIC PANEL, W/EGFR CT Angio Upper Extre mity CT Angio, Carotids Complete Echo Carotid Duplex Bilat eral HISTORY OF PROCEDURES Procedure Date Procedure Name Provider Procedure Notes S tatus Complex e/m visit add on Dudley Muñiz MD completed Complex e/m visit add on Dudley Muñiz MD completed Complex e/m visit add on Dudley Muñiz MD completed EKG Dudley Muñiz MD completed EKG Yue Huizar MD compl eted
--- OUTSIDE RECORDS SUMMARY | 2024-08-22 16:00 | XMS_ITS | Encounter Summary ---
Author Organization [facility] Address [address] [place] [address] Care Team Providers Care Metallography Teacher Name Role Phone Dwayne Torres MD Primary Care Provider [phone] Encounter Details Date Type Department Care Team (Late st Contact Info) Description 11/22/2017 Lab Requisition [facility] Care DermPath Lab 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[employer] Gender Identity Not on file Sexual Orientation Not on file documented as of this encounter Plan of Treatment Not on file documented as of this encounter Procedures Procedure Name Priority Date/Time Associated Diagnosis Comments DERMATOPATH TECHNICAL REPORT Routine 11/21/2017 12:00 AM CDT documented in this encounter Results * DERMATOPATH TECHNICAL REPORT (11/21/2017 12:00 AM CDT) Case Report Dermatopathology Report Case: [id number] Authorizing Provider: Kassandra Maurice MD Collected: 11/21/2017 12:00 AM Pathologist: Shanika Cameron MD Received: 11/22/2017 06:13 AM Specimen: Skin, right shoulder 11:33 AM CDT DERMATOPATHOLOGY LABORATORY Clinical History Bx proven BCC. Prior Biopsy [id number]. Check margins. 11:33 AM T DERMATOPATHOLOGY LABORATORY Gross Description Specimen A: Received is one formalin filled container labeled with the patient's name and designated right shoulder.The specimen consists of an ellipse measuring [id number] and is oriented with the notch at the 3 o'clock position. There is a previous biopsy site at the center of the epidermal surface that measures 16x9mm. The 12 to 6 o'clock margin is inked green. The 6 o'clock to 12 o'clock margin is inked black. The 12 o'clock tip is submitted in cassette 1. The 6 o'clock tip is submitted in cassette 2. The remainder of the ellipse is serially sectioned and submitted in cassettes 3-4. Jar 0. [facility] performed the technical component only. 11:33 AM T DERMATOPATHOLOGY LABORATORY Embedded Images 11:33 AM [facility] DERMATOPATHOLOGY LABORATORY DISCLAIMER An external and internal positive and negative controls are appropriate for the histochemical, immunohistochemical and immunofluorescence stain(s) in this case (if any), except where stated explicitly. The performance characteristics of the stain(s) cited in this report were developed and its performance characteristic determined by the Dermatopathology Laboratory at [facility]. These tests need not be, and therefore are not, approved by the [place] Food and Drug Administration. The tests are used for clinical purposes. 11:33 AM [facility] DERMATOPATHOLOGY LABORATORY Pathology/Cytolog y TISSUE SPECIMEN FROM SKIN / Unknown 11/21/2017 11/22/2017 6:13 AM CDT us Kassandra Maurice MD LAB - PATHOLOGY/CYTOLOGY ORD ERABLES Final Result DERMATOPATHOLOGY LABORATORY [facility] - Department of Dermatology [address]th [place] [address], [facility] [phone] documented in this encounter Visit Diagnoses Not on filedocumented in this encounter Care Teams Metallography Teacher Relationship Specialty Start Date End Date Dwayne Torres MD [address] [place] [phone] PCP - General 04/07/12 documented as of this encounter
--- OUTSIDE RECORDS SUMMARY | 2024-08-22 16:00 | XMS_ITS | Encounter Summary ---
Author Organization [facility] Address [address] [place] [address] Phone Care Team Providers Care Tugboat Pilot Name Role Phone Troy Dunn MD Primary Care Provider [phone] Hussain Torers MD Unavailable Reason for Visit * Reason Comments Medication Refill Encounter Details Date Type Department Care Team (Late st Contact Info) Description 01/09/2024 Refill [facility] [place] [address] Troy Dunn MD [address] [address] Medication Refill Social History Tobacco Use Types Packs/Day Years Used Date Smoking Tobacco: Former Cigarettes 1 53.2 1 971 - 07/25/2023 Smokeless Tobacco: Never Comments:Quit for 18 years i n between Alcohol Use Standard Drinks/Week Comments Not Currently 0 (1 standard drink = 0.6 oz pur e alcohol) [facility] Utilities Answer Date Recorded In the past 12 months has [employer] electric, gas, oil, or water company threatened to shut off services in your home? No 04/28/2023 Social Connection and Isolation Panel [NHANES] A nswer Date Recorded In a typical week, how many times do you talk on the phone with family, friends, or neighbors? 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 Clopidogrel Bisulfate Dispensed Days Supply Quantity Provider Pharmacy CLOPIDOGREL 75MG TAB 11/24/2023 90 90 Each Troy Dunn MD [facility] ... Rosuvastatin Calcium Dispensed Days Supply Quantity Provider Pharmacy ROSUVASTATIN 20MG TAB 11/24/2023 90 90 Each Troy Dunn MD [facility] ... Nitroglycerin Dispensed Days Supply Quantity Provider Pharmacy NITROGLYCER 0.3MG SUB 11/25/2023 50 100 Each Troy Dunn MD [facility] ... documented in this encounter Plan of Treatment Upcoming Encounters Date Type Department Care Team (Late st Contact Info) Description 08/23/2024 10:30 AM CDT Lab [facility] [address] [phone] [facility] Lab/Ancillary 08/30/2024 12:30 PM CDT Office Visit [facility] [place] [address] [place] [address] Troy Dunn MD #[address] [address] documented as of this encounter Visit Diagnoses Not on filedocumented in this encounter Additional Health Concerns Assessment Noted Time PHQ-9 Depression Total Score: 0 08/26/19 24 11:06 AM CDT documented as of this encounter Care Teams Tugboat Pilot Relationship Specialty Start Date End Date Troy Dunn MD [address] [address] PCP - General Family Medicine 12/28/22 Hussain Torres MD [address] [address] Consulting Physician Colon and Rectal Surgery 04/12/23 documented as of this encounter
--- OUTSIDE RECORDS SUMMARY | 2024-08-22 16:00 | XMS_ITS | Clinical Summary ---
Author Organization [place] [id number] [facility] Address [address] [place] [phone] Phone Care Team Providers Care Product Responsibility Liaison Name Role Phone Allie Chong NP Primary Care Provider [phone] Allergies No known active allergies Medications ezetimibe [...] (coronary artery disease) 07/25/2024 Rheumatoid arthritis of [facility] sites with negative rheumatoid factor 03/17/2018 Overview [...] joint. Assessment & Plan (03/17/2018 4:57 PM DAIRY SCIENTIST): This is based on pain and stiffness [...] 03/13/2018 Assessment & Plan (03/14/2018 4:46 PM DAIRY SCIENTIST): History of hypertension - Continue home losartan, carvedilol Assessment & Plan (03/13/2018 11:41 PM DAIRY SCIENTIST): History of hypertension - Continue home losartan, carvedilol Pyelonephritis 03/03/2018 Assessment & Plan (03/14/2018 4:46 PM DAIRY SCIENTIST): Patient presents with stabbing back pain, CVA tenderness, UA with 21-[address] shows large stone in R kidney, bilateral hydronephrosis, fat stranding. Lactate negative. - Discharge with 14-day course of Bactrim 800-160 PO BID - Outpatient Urology followup for nephrolithiasis Assessment & Plan (03/13/2018 11:40 PM DAIRY SCIENTIST): Patient presents with stabbing back pain, CVA [...] examination Assessment & Plan (03/14/2018 4:46 PM DAIRY SCIENTIST): Patient has a history of polyarthralgia, affecting multiple joints. - Continue Duloxetine - PRN Tylenol - PRN Ibuprofen Assessment & Plan (03/13/2018 11:40 PM DAIRY SCIENTIST): Patient has a history of polyarthralgia, affecting [...] offer some benefit. Follow-up in 2 weeks. Encounters Date Type Department Care Team Description 08/03/2024 [facility] Post Discharge Follow up phone call [address] [phone] Ning Saez RN 08/02/2024 Telephone [facility] Cardiology [address] [place] [address] [place] [phone] Ana Waller 07/31/2024 1:00 PM CDT Office Visit [facility] Stroke [address] [place] [phone] Garfield Larsen NP Cerebrovascular accident (CVA), unspecified mechanism (HCC) (Primary Dx); Stroke-like episode; Syncope and collapse; Episode of shaking; At risk for obstructive sleep apnea; Insomnia, unspecified type; Hospital discharge follow-up 07/25/2024 1:53 PM CDT - 07/26/2024 6:24 PM CDT Emergency [address] [phone] Mitch Elizabeth MD Blustein, Erica C., MD Holder, Phil Brasher MD Stroke-like episode (Primary Dx); Sinus bradycardia Discharge Disposition: Discharge to home or self care from Last 3 Months Immunizations Immunization Administration Dates Next Due Influenza, Quadrivalent, Spl it, Preservative Free, Intramuscular 03/14/2018 Surgical History Surgery Date Site/Laterality Comments NEPHROSTOMY Medical History Medical History Date Comments Hypertension Kidney stone Arthritis Family History Medical History Relation Name Comments Cancer Father Diabetes Maternal Grandmother Diabetes Paternal Grandmother Diabetes Sister Relation Name Status Comments Father Maternal Grandmother Paternal Grandmother Sister Social History Tobacco Use [...] on file Legal Sex Female 12:36 AM DAIRY SCIENTIST Gender Identity Not on file Sexual Orientation Not on file Obstetrics History Last Filed Vital Signs Vital Sign Reading [...] 07/31/2024 1:08 PM CDT Plan of Treatment Health Maintenance Due Date Last Done Comments Breast Cancer Screening-Mammogram 1955 Colon Cancer Screening-Colonoscopy 1955 DTaP/Tdap/Td Vaccine (1 - Tdap) 09/21/1967 Hepatitis B Screening 1974 Zoster Vaccine (1 of 2) 2006 Well Visit 65+ 2021 Covid-19 Vaccine ( - 2023-2 5 season) 2024 12/11/2020, 11/20/2020 Osteoporosis Screening-Bone Density Scan 01/09/2024 01/08/2022 Depression Screening 07/25/2025 07/25/2024 Fall Risk Assessment 07/26/2025 07/26/2024 Hepatitis C Screening Completed 03/03/2018 Pneumococcal vaccine 65+ Completed 04/28/2023, 01/30 Influenza Vaccine Completed 02/07/2024, , 02/14/2020, Additional history exists Procedures Procedure Name Priority Date/Time Associated Diagnosis Comments TRANSTHORACIC ECHO (TTE) COMPLETE W DOPPLER/CF W CONTRAST Pending Discharge 07/26/2024 4:54 PM CDT LIPOPROTEIN A (LPA) STAT 07/26/2024 1 1:10 AM CDT HEMOGLOBIN A1C STAT 07/26/2024 11:10 AM CDT LIPID PANEL STAT 07/26/2024 11:10 AM CDT VERIFY NOW CLOPIDOGREL STAT 07/26/2024 11:10 AM CDT PRECISION DYER EVALUATE AND TREAT Routine 07/26/2024 9:39 AM CDT PRECISION DYER EVALUATE AND TREAT Routine 07/26/2024 9:39 AM [...] ECG 12-LEAD STAT 07/25/2024 2:10 PM CDT [place] CRITICAL CARE ILL/INJURED PATIENT INIT 30-74 MIN [...] PM CDT Narrative 07/26/2024 5:10 PM CDT [facility] [place] [address] Transthoracic Echocardiographic Report Patient Name: ETHEL HOBSON M : 1955 (68y 10m) Gender: F Study Date: 07/26/2024 03:41:30 PM Ht(Inch): 62 Wt(Lb): 169.09 BSA: 1.83 Patent Searcher: Ky Thompson [facility] Location: [id number] Order Provider: PHIL BURDICK Heart Rate: 62 [...] 5:10:39 PM CDT [ADDENDUM] Procedure Note Ana Oretga MD - 07/26/2024 [facility] Cardiac Diagnostic Lab [address] [place] [id number] Transthoracic Echocardiographic Report Patient Name: ETHEL HOBSON M : 1955 (68y 10m) Gender: F Study Date: 07/26/2024 03:41:30 PM Ht(Inch): 62 Wt(Lb): 169.09 BSA: 1.83 Patent Searcher: Ky Thompson [facility] Location: [place] [address] Order Provider:PHIL BURDICK Heart Rate: 62 BMI: [...] LA Length 4C 4.94 cm MV Decel Xgmp693.69 msec [ 104.00 - 258.00 ] LA [...] Ortega MD 07/26/2024 5:10:39 PM CDT [ADDENDUM] Phil Burdick MD CV ECHO PROCEDURES Edited Result - Final * VerifyNow clopidogrel (07/26/2024 11:10 AM CDT) Ver[facility]Now clopidogrel 102 PRU Comment: Interpretive Data [...] 0 AM CDT 07/26/2024 11:10 AM CDT us Phil Burdick MD LAB BLOOD ORDERABLES Final Result KRISTIE POPE [facility] Department [place] [address] * Lipoprotein a (LPa) (07/26/2024 11:10 AM CDT) Lipoprotein A 32 <75 nmol/L [facility] Comment: ADDITIONAL INFORMATION Please notice that Lp(a) values are reported in molar units (nmol/L). These units are recommended by professional society guidelines and expert opinion statements. Measured results and risk thresholds are higher than those generated using mass units (mg/dL). Cardiovascular risk increases starting at 75 nmol/L. Lp(a) >=125 nmol/L is considered a risk enhancing factor by the [place] [employer]. This test has been modified from the grounds maintenance worker's instructions. Its performance characteristics were determined by [facility] in a manner consistent with CLIA requirements. This test has not been cleared or approved by the U.S. Food and Drug Administration. Test Performed by: [facility] [place] [address] Paediatrician: Christie Nichols Ph.D.; CLIA# [id number] Blood 07/26/2024 11:1 0 AM CDT 07/26/2024 11:59 AM CDT Phil Burdick MD LAB BLOOD ORDERABLES Final Result Performing Organization Address [facility] de Phone Number [facility] Department [place] [address] [facility] * (ABNORMAL) Hemoglobin A1c (07/26/2024 11:10 AM CDT) Hgb A1C 5.8(H) 4.0 - 5.6 % Estimated Average Glucose 120 mg/dL KRISTIE [facility] Comment: The ADA recommends reporting an estimated Average Glucose (eAG) with all Hemoglobin A1c results using the equation derived from a study of 507 normal and diabetic adults. Minority populations were underrepresented and children were not included. (Diabetes Care 2020; 43(S1): S66-S76). The eAG is not equivalent to a fasting glucose. Blood 07/26/2024 11:1 0 AM CDT 07/26/2024 11:33 AM CDT Phil Burdick MD LAB BLOOD ORDERABLES Final Result Performing Organization Address [facility] Co de Phone Number KRISTIE POPE [facility] Department [place] [address] * (ABNORMAL) Lipid panel (07/26/2024 11:10 AM CDT) Cholesterol 140 30 - 199 mg/dL Comment: [...] revised on 2017. Triglycerides 156(H) <=149 mg/dL [facility] Comment: Interpretive Data Ages < or = [...] revised on 2017. HDL 47 >=40 mg/dL [facility] Comment: Interpretive Data Ages < or [...] on 2017. LDL, calculated 66 <=129 mg/dL [facility] Comment: Interpretive Data Ages < or [...] 3. Simone Rehman et al. LINCOLN Cardiol. 2019August 30;5(5):540-548. doi: 10.1001/jamacardio.2020.0013 Current Interpretive Data was last revised on 2023. Non-HDL Cholesterol 93 mg/dL [facility] Comment: Interpretive Data Ages < or [...] last revised on 2017. Chol/HDL ratio 3 [facility] Blood 07/26/2024 11:1 0 AM CDT 07/26/2024 11:32 AM CDT us Phil Burdick MD LAB BLOOD ORDERABLES Final Result [facility] Department [place] [address] * PRECISION DYER Evaluation and Treatment (07/26/2024 9:39 AM CDT) Narrative Janneth Morin, PRECISION DYER - 07/26/2024 9:39 AM CDT Janneth Morin, PRECISION DYER 07/26/2024 10:53 AM Speech-Language Pathology: Clinical Bedside [...] of speech/language/cognition completed after CSE; see additional PRECISION DYER note this date for assessment information. Assessment [...] MASA score consistent with clinical impression Plan PRECISION DYER Frequency of Services during current admission: One-time visit (Discharge from this service) PRECISION DYER Recommendation (Add'l Services): No further PRECISION DYER indicated Next Visit Plan:No further ST warranted Please reference care plan for treatment goals, if indicated. Discharge Summary Statement If this is the last swallow therapy visit, this serves as the discharge summary. us Phil Burdick MD PRECISION DYER ORDERABLES Final Resu lt * PRECISION DYER Evaluation and Treatment (07/26/2024 9:39 AM CDT) Narrative Janneth Morin, PRECISION DYER - 07/26/2024 9:39 AM CDT Janneth Morin PRECISION DYER 07/26/2024 10:53 AM Speech-Language Pathology: Clinical Bedside [...] presented with her who corroborated her story. DIANE was last night when she went to [...] of speech/language/cognition completed after CSE; see additional PRECISION DYER note this date for assessment information. Assessment [...] MASA score consistent with clinical impression Plan PRECISION DYER Frequency of Services during current admission: One-time visit (Discharge from this service) PRECISION DYER Recommendation (Add'l Services): No further PRECISION DYER indicated Next Visit Plan:No further ST warranted Please reference care plan for treatment goals, if indicated. Discharge Summary Statement If this is the last swallow therapy visit, this serves as the discharge summary. Mitch Elizabeth MD PRECISION DYER ORDERABLES Final Result * Urinalysis reflex to microscopic and culture Urine, clean voided (07/26/2024 6:09 AM CDT) Color, ur Straw Yellow Clarity, ur Clear Clear [facility] Specific gravity, ur 1.013 1.003 - 1.030 [facility] pH, urine 6.0 [facility] Comment: Interpretive Data U rine pH is affected by diet, medications, systemic acid-base disturbances, and renal tubular function. pH may affect urinary stone formation. For example, urine pH below 6.0 may help reduce the tendency for calcium phosphate stones and pH greater than 6.0 may reduce the tendency for uric acid stone formation. Source: rankdesk Current Interpretive Data was last revised on 2017 Protein, ur ql Negative Negative [facility] Glucose, ur ql Negative Negative [facility] Ketones, ur Negative Negative [facility] Bilirubin, ur Negative Negative [facility] Blood, ur Negative Negative [facility] Urobilinogen, ur <2.0 <2.0 mg/dL [facility] Nitrite, ur Negative Negative [facility] Leukocyte esterase, ur Negative Negative [facility] UA reflex comment Reflex conditions for microscopic UA and culture not met. [facility] Urine, clean voided 07/26/2024 6:09 AM CDT 07/26/2024 6:54 AM CDT us Phil Burdick MD LAB MICROBIOLOGY - GENERAL ORDERABLES Final Result [facility] Department [place] [address] * Drugs of Abuse Screen, Urine without [...] 2022. Barbiturates, ur Not Detected CutOff 200ng/mL [facility] Comment: Interpretive Data - Barbiturates: Samples containing greater than 200 ng/mL secobarbital or other cross-reacting barbiturate compounds are reported as positive. False positive and false negative results are possible. Confirmatory testing required for definitive results. Current Interpretive Data was last reviewed 2022. Benzodiazepines, ur Not Detected CutOff 100ng/mL [facility] Comment: Interpretive Data - Benzodiazepines: Samples containing greater than 100 ng/mL nordiazepam or other cross-reacting compounds are reported as positive. False positive and false negative results are possible. Confirmatory testing required for definitive results. Current Interpretive Data was last reviewed 2022. Cannabinoids, ur Not Detected CutOff 50 ng/mL [facility] Comment: Interpretive Data - Cannabinoids: Samples containing greater than 50 ng/mL delta-9 THC -COOH or other cross- reacting compounds are reported as positive. False positive and false negative results are possible. Confirmatory testing required for definitive results. Current Interpretive Data was last reviewed 2022. Cocaine, ur Not Detected CutOff 150ng/mL [facility] Comment: Interpretive Data - Cocaine: Samples containing greater than 150 ng/mL benzoylecgonine or other cross- reacting compounds are reported as positive. False positive and false negative results are possible. Confirmatory testing required for definitive results. Current Interpretive Data was last reviewed 2022. Fentanyl, Ur Not Detected CutOff 5 ng/mL [facility] Comment: Interpretive Data - Fentanyl: Samples containing greater than 5 ng/mL norfentanyl, fentanyl, or other cross-reacting fentanyl compounds are reported as positive. False positive and false negative results are possible. Confirmatory testing required for definitive results. Current Interpretive Data was last reviewed 2023. Methadone, ur Not Detected CutOff 300ng/mL [facility] Comment: Interpretive Data - Methadone: Samples containing greater than 300 ng/mL d,l-methadone or other cross-reacting compounds are reported as positive. False positive and false negative results are possible. Confirmatory testing required for definitive results. Current Interpretive Data was last reviewed 2022. Opiates, ur Not Detected CutOff 300ng/mL [facility] Comment: Interpretive Data - Opiates: Samples containing greater than 300 ng/mL morphine or other cross-reacting compounds are reported as positive. False positive and false negative results are possible. Confirmatory testing required for definitive results. Current Interpretive Data was last reviewed 2022. Oxycodone, ur Not Detected CutOff 100ng/mL [facility] Comment: Interpretive Data - Oxycodone: Samples containing greater than 100 ng/mL oxycodone or other cross-reacting compounds are reported as positive. False positive and false negative results are possible. Confirmatory testing required for definitive results. Current Interpretive Data was last reviewed 2022. Phencyclidine, ur Not Detected CutOff 25 ng/mL [facility] Comment: Interpretive Data - Phencyclidine: Samples containing greater than 25 ng/mL phencyclidine or other cross-reacting compounds are reported as positive. False positive and false negative results are possible. Confirmatory testing required for definitive results. Current Interpretive Data was last reviewed 2022. Urine Creatinine 45 mg/dL [facility] Comment: Interpretive Data Urine Creatinine: < 10 mg/dL is extremely dilute = or > 10 but < 20 mg/dL is dilute = or > 20 mg/dL is normal Current Interpretive Data was last revised on 2017. Urine 07/26/2024 6:09 AM CDT 07/26/2024 6:54 AM CDT Narrative KRISTIE POPE - 07/26/2024 7:31 AM CDT Drug of Abuse screening is performed by immunoassay for medical purposes only. This is not to be used for Pain Management purposes. Phil Burdick MD LAB URINE ORDERABLES Final Result Performing Organization Address [facility] de Phone Number [facility] Department [place] [address] * eGFR (07/25/2024 8:52 PM CDT) eGFR [...] 8:52 PM CDT 07/25/2024 9:54 PM CDT Phil Burdick MD LAB BLOOD ORDERABLES Final Result Performing Organization Address [facility] Co de Phone Number [facility] Department [place] [address] * CBC without differential (07/25/2024 8:52 PM CDT) [facility] WBC 8.1 3.8 - 9.9 K/cumm Hgb 12.4 11.9 - 15.5 g/dL [facility] Hct 37.0 35.6 - 45.5 % [facility] Plt 247 150 - 400 K/cumm [facility] MPV 10.7 9.1 - 12.3 fL [facility] RBC 4.11 3.90 - 5.20 M/cumm [facility] MCV 90.0 81.3 - 96.4 fL [facility] MCH 30.2 27.1 - 33.3 pg [facility] MCHC 33.5 32.3 - 35.7 g/dL [facility] RDW CV 12.4 11.1 - 14.9 % [facility] RDW SD 40.1 35.7 - 48.1 fL [facility] NRBC abs 0.00 0.00 - 0.01 K/cumm [facility] Blood 07/25/2024 8:52 PM CDT 07/25/2024 9:54 PM CDT Phil Burdick MD LAB BLOOD ORDERABLES Final Result Performing Organization Address City/[facility]/ZIP Co de Phone Number [facility] Department [place] [place] [address] * Phosphorus (07/25/2024 8:52 PM CDT) [facility] Phosphorus, pl 3.8 2.3 - 4.5 mg/dL Blood 07/25/2024 8:52 PM CDT 07/25/2024 9:54 PM CDT Phil Burdick MD LAB BLOOD ORDERABLES Final Result [facility] [place] [address] * Magnesium (07/25/2024 8:52 PM CDT) Pathologist [facility] Magnesium 2.1 1.4 - 2.5 mg/dL Blood 07/25/2024 8:52 PM CDT 07/25/2024 9:54 PM CDT Phil Burdick MD LAB BLOOD ORDERABLES Final Result [facility] Department [place] [address] * Basic metabolic panel (07/25/2024 8:52 PM CDT) [facility] Sodium 142 135 - 145 mmol/L Potassium, pl 4.3 3.3 - 4.9 mmol/L [facility] Chloride 103 97 - 110 mmol/L [facility] CO2 28 22 - 32 mmol/L [facility] Anion gap 11 2 - 15 mmol/L [facility] BUN 17 6 - 25 mg/dL [facility] Creatinine 0.83 0.60 - 1.10 mg/dL [facility] Glucose 87 70 - 199 mg/dL [facility] Comment: Interpretive Data Fasting glucose >/= [...] 2022. Calcium 9.4 8.5 - 10.3 mg/dL [facility] Blood 07/25/2024 8:52 PM CDT 07/25/2024 9:54 PM CDT us Phil Burdick MD LAB BLOOD ORDERABLES Final Result [facility] Department [place] [address] * VerifyNow clopidogrel (07/25/2024 3:44 PM CDT) [facility]Now clopidogrel 119 PRU Comment: Interpretive Data [...] 3:44 PM CDT 07/25/2024 5:17 PM CDT Poli Interiano MD LAB BLOOD ORDERABLES Suni l Result [facility] [place] [address] * Troponin I high-sensitivity 2-hour (07/25/2024 3:23 PM CDT) Trop I hs <4 <=17 ng/L Comment: Interpretive Data For further hscTnI resources including the diagnostic algorithm and an aid in interpretation, copy and paste this link: https://bjhlab.testcatalog.org/show/hsTrop-1 Current Interpretive Data last revised 2019. Trop I hs delta 0 ng/L [facility] Trop I hs interp Insignificant [facility] Blood 07/25/2024 3:23 PM CDT 07/25/2024 3:32 PM CDT us Willian Irvin MD LAB BLOOD ORDERABLES Final R esult [facility] Department [place] [address] * MRA Head and Carotids W WO [...] 2. Magnetic resonance angiography (MRA) of the ybkhlb-lj-Pdtyli without and with contrast 3. Magnetic resonance angiography (MRA) of the neck without and with contrast HISTORY: 68-year-old female with concern for acute infarct. left arm numbness and facial droop, NIHSS 4 TECHNIQUE: Multiplanar multi-weighted MRI of the brain and brainstem was performed without intravenous contrast using the hyperacute stroke protocol. Magnetic resonance angiography of the piuume-cs-Yoyanm was performed using a separate data acquisition with a non-contrast luow-mx-mepokl technique and a post-contrast technique to produce axial thin-slice source images. These images were then used to generate maximum intensity projection (MIP) images. Magnetic resonance angiography of the neck was performed using a separate data acquisition with a non-contrast mxdm-cz-ktrenn technique and a post-contrast technique to produce [...] angiogram. MRA HEAD: Decreased signal on the vrtj-uw-dgslbw sequence in the intracranial right internal carotid [...] 2. Magnetic resonance angiography (MRA) of the gnsfyy-rf-Cbhjrk without and with contrast 3. Magnetic resonance angiography (MRA) of the neck without and with contrast HISTORY: 68-year-old female with concern for acute infarct. left arm numbness and facial droop, NIHSS 4 TECHNIQUE: Multiplanar multi-weighted MRI of the brain and brainstem was performed without intravenous contrast using the hyperacute stroke protocol. Magnetic resonance angiography of the smsptx-nk-Zcrzme was performed using a separate data acquisition with a non-contrast wfss-id-yqbehy technique and a post-contrast technique to produce axial thin-slice source images. These images were then used to generate maximum intensity projection (MIP) images. Magnetic resonance angiography of the neck was performed using a separate data acquisition with a non-contrast hkaf-ze-ctzdwl technique and a post-contrast technique to produce [...] angiogram. MRA HEAD: Decreased signal on the gsto-tb-btysuf sequence in the intracranial right internal carotid [...] Loretta Ricks M.D., Ph.D. [place] MD [facility] MRI PROCEDURES Suni l Result * Critical [...] 2. Magnetic resonance angiography (MRA) of the qchvcs-ay-Sycekm without and with contrast 3. Magnetic resonance angiography (MRA) of the neck without and with contrast HISTORY: 68-year-old female with concern for acute infarct. left arm numbness and facial droop, NIHSS 4 TECHNIQUE: Multiplanar multi-weighted MRI of the brain and brainstem was performed without intravenous contrast using the hyperacute stroke protocol. Magnetic resonance angiography of the evbueo-ky-Dxckny was performed using a separate data acquisition with a non-contrast cwfg-bn-gcjorp technique and a post-contrast technique to produce axial thin-slice source images. These images were then used to generate maximum intensity projection (MIP) images. Magnetic resonance angiography of the neck was performed using a separate data acquisition with a non-contrast qzln-ui-upkxod technique and a post-contrast technique to produce [...] angiogram. MRA HEAD: Decreased signal on the idcd-pk-kjthmb sequence in the intracranial right internal carotid [...] 2. Magnetic resonance angiography (MRA) of the sjytdh-hv-Hjztef without and with contrast 3. Magnetic resonance angiography (MRA) of the neck without and with contrast HISTORY: 68-year-old female with concern for acute infarct. left arm numbness and facial droop, NIHSS 4 TECHNIQUE: Multiplanar multi-weighted MRI of the brain and brainstem was performed without intravenous contrast using the hyperacute stroke protocol. Magnetic resonance angiography of the [id number] was performed using a separate data acquisition with a non-contrast ligu-rn-koncon technique and a post-contrast technique to produce axial thin-slice source images. These images were then used to generate maximum intensity projection (MIP) images. Magnetic resonance angiography of the neck was performed using a separate data acquisition with a non-contrast sytw-vh-gbdzec technique and a post-contrast technique to produce [...] angiogram. MRA HEAD: Decreased signal on the [id number] sequence in the intracranial right internal carotid [...] IMG MRI PROCEDURES Suni l Result * ECG 12-LEAD (07/25/2024 2:10 PM CDT) Narrative [facility] - 07/25/2024 2:10 PM CDT Mitch Elizabeth MD 07/25/2024 2:10 PM ECG 12 [...] the ED Mitch Elizabeth MD 07/25/24 1410 us Mitch Elizabeth MD ECG ORDERABLES Final Result [facility] * [place] CRITICAL CARE ILL/INJURED PATIENT INIT 30-74 MIN [...] bed. us Mitch Elizabeth MD IN CLINIC/BEDSIDE LAWE IGNACIO Final Result * CT Stroke Head [...] it. Electronically signed by: Mann Cummings MD Mitch Elizabeth MD IMG CT PROCEDURES Suni l Result * POCT prothrombin time, whole blood (07/25/2024 1:48 PM CDT) [facility] PT, POC 11.7 10.6 - 13.5 sec INR, bld, POC 1.0 0.9 - 1.2 [facility] Blood 07/25/2024 1:4 8 PM CDT 07/25/2024 1:48 PM CDT Mitch Elizabeth MD LAB POCT ORDERABLES - DEVICE Final Result Performing Organization Address [facility] Co de Phone Number [facility] [place] [address] * POCT glucose (07/25/2024 1:47 PM CDT) [facility] Glucose, POC 102 70 - 199 mg/dL Blood 07/25/2024 1:47 PM CDT 07/25/2024 1:47 PM CDT Notinfile Unknown LAB POCT ORDERABLES - DEVICE F inal Result Performing Organization Address [facility] de Phone Number [facility] Department [place] [place] [address] * Troponin I high-sensitivity series (baseline, 2hr, 4hr, 6hr) (07/25/2024 1:45 PM CDT) [facility] Trop I hs 4 <=17 ng/L Comment: Code Blue Specimen Interpretive Data For further hscTnI resources including the diagnostic algorithm and an aid in interpretation, copy and paste this link: https://bjhlab.testcatalog.org/show/hsTrop-1 Current Interpretive Data last revised 2019. Blood 07/25/2024 1:45 PM CDT 07/25/2024 1:58 PM CDT Mitch Elizabeth MD LAB BLOOD ORDERABLES F inal Result Performing Organization Address [facility] Co de Phone Number [facility]ST[facility] Department [place] [address] * eGFR (07/25/2024 1:45 PM CDT) eGFR [...] ORDERABLES Final R esult Performing Organization Address [facility] Co de Phone Number [facility] [place] [address] * Differential, auto (07/25/2024 1:45 PM CDT) Neutrophil abs 4.2 1.5 - 6.5 K/cumm Imm gran abs 0.0 0.0 - 0.1 K/cumm [facility] Lymphocyte abs 2.3 0.8 - 3.3 K/cumm [facility] Monocyte abs 0.7 0.2 - 0.8 K/cumm [facility] Eosinophil abs 0.2 0.0 - 0.5 K/cumm [facility] Basophil abs 0.1 0.0 - 0.1 K/cumm [facility] Neutrophil pct 55.7 % [facility] Comment: Interpretive Data Percent cell count reference ranges are not reported, since discordance with absolute values may lead to misinterpretation of CBC data. Current Interpretive Data was last revised on 2017. Imm gran pct 0.4 % [facility] Comment: Interpretive Data Percent cell count reference ranges are not reported, since discordance with absolute values may lead to misinterpretation of CBC data. Current Interpretive Data was last revised on 2017. Lymphocyte pct 30.9 % [facility] Comment: Interpretive Data Percent cell count reference ranges are not reported, since discordance with absolute values may lead to misinterpretation of CBC data. Current Interpretive Data was last revised on 2017. Monocyte pct 9.3 % [facility] Comment: Interpretive Data Percent cell count reference ranges are not reported, since discordance with absolute values may lead to misinterpretation of CBC data. Current Interpretive Data was last revised on 2017. Eosinophil pct 2.8 % [facility] Comment: Interpretive Data Percent cell count reference ranges are not reported, since discordance with absolute values may lead to misinterpretation of CBC data. Current Interpretive Data was last revised on 2017. Basophil pct 0.9 % [facility] Comment: Interpretive Data Percent cell count reference ranges are not reported, since discordance with absolute values may lead to misinterpretation of CBC data. Current Interpretive Data was last revised on 2017. Blood 07/25/2024 1:45 PM CDT 07/25/2024 1:58 PM CDT us Willian Irvin MD LAB BLOOD ORDERABLES Final R esult K[facility]STIE [facility] Department [place] [address] * CBC with auto differential (07/25/2024 1:45 PM CDT) WBC 7.5 3.8 - 9.9 K/cumm Comment:Code Blue Specimen Hgb 12.9 11.9 - 15.5 g/dL [facility] Hct 38.8 35.6 - 45.5 % [facility] Plt 277 150 - 400 K/cumm [facility] MPV 10.4 9.1 - 12.3 fL [facility] RBC 4.29 3.90 - 5.20 M/cumm [facility] MCV 90.4 81.3 - 96.4 fL [facility] MCH 30.1 27.1 - 33.3 pg [facility] MCHC 33.2 32.3 - 35.7 g/dL [facility] RDW CV 12.7 11.1 - 14.9 % [facility] RDW SD 41.4 35.7 - 48.1 fL [facility] NRBC abs 0.00 0.00 - 0.01 K/cumm [facility] Blood Venous blood specimen / Unknown 07/25/2024 1:45 PM CDT 07/25/2024 1:58 PM CDT Narrative [facility] - 07/25/2024 2:02 PM CDT Potential Stroke Patient us Mitch Elizabeth MD LAB BLOOD ORDERABLES F inal Result [facility] Department [place] [address] * aPTT (07/25/2024 1:45 PM CDT) aPTT 35 28 - 38 sec Comment: Code Blue Specimen Interpretive Data Heparin therapeutic range: 66.0 - 100.0 seconds. Range based on correlation with therapeutic heparin activity range of 0.3 - 0.7 Units/mL. Current interpretive data was last revised on 2023. Blood Venous blood specimen / Unknown 07/25/2024 1:45 PM CDT 07/25/2024 1:58 PM CDT Narrative [facility] - 07/25/2024 2:09 PM CDT Potential stroke patient. us Mitch Elizabeth MD LAB BLOOD ORDERABLES F inal Result [facility] Department [place] [address] * (ABNORMAL) Comprehensive metabolic panel (07/25/2024 1:45 PM CDT) Sodium 141 135 - 145 mmol/L Comment:Code Blue Specimen Potassium, pl 5.4(H) 3.3 - 4.9 mmol/L [facility] Comment: Hemolyzed; Potassium value may be falsely elevated by as much as 0.6-1.0 mmol/L. Suggest redraw and reanalysis. Code Blue Specimen Chloride 106 97 - 110 mmol/L [facility] Comment:Code Blue Specimen CO2 27 22 - 32 mmol/L [facility] Comment:Code Blue Specimen Anion gap 8 2 - 15 mmol/L [facility] Comment:Code Blue Specimen BUN 18 6 - 25 mg/dL [facility] Comment:Code Blue Specimen Creatinine 0.82 0.60 - 1.10 mg/dL [facility] Comment:Code Blue Specimen Glucose 105 70 - 199 mg/dL [facility] Comment: Code Blue Specimen Interpretive Data [...] classification and Diagnosis of Diabetes Diabetes Care 202; 46: S19-S40. Current interpretive data was last revised 2022. Calcium 9.4 8.5 - 10.3 mg/dL [facility] Comment:Code Blue Specimen Bilirubin, total 0.5 0.1 - 1.2 mg/dL [facility] Comment:Code Blue Specimen Protein, pl 7.3 6.5 - 8.5 g/dL [facility] Comment:Code Blue Specimen Albumin 4.0 3.5 - 5.0 g/dL [facility] Comment:Code Blue Specimen Alk phos 92 40 - 130 Units/L [facility] Comment:Code Blue Specimen ALT 23 7 - 45 Units/L [facility] Comment:Code Blue Specimen AST 32 10 - 45 Units/L [facility] Comment: Hemolyzed; result may be falsely elevated Code Blue Specimen Blood Venous blood specimen / Unknown 07/25/2024 1:45 PM CDT 07/25/2024 1:58 PM CDT Narrative [facility] - 07/25/2024 2:22 PM CDT Potential Stroke Patient us Mitch Elizabeth MD LAB BLOOD ORDERABLES F inal Result [facility] Department [place] [address] * HEPATITIS C AB W/REFL TO HCV [...] file for you. Please contact a client success manager if you would like additional testing done on this patient or contact your jewelry salesperson to obtain a client custom reflex testing authorization request form. SIGNAL TO CUT-OFF 0.01 <1.00 [facility] [place] Blood specimen (specimen) 03/03/2018 10:07 AM CDT 03/03/2018 10:08 AM CDT Narrative Resulting Agency Comment Performing Organization Information: Site ID: [id number] Name: [facility] Address: [address] [place] [address] Director: Kendall Marsh D.O., MPH us Hunter Schwartz MD LAB BLOOD ORDERABLES Fin al Result [facility] [place] from Last 3 Months or Most Recently Relevant to Health Maintenance Insurance [facility] AETNA MEDICARE GOLD [facility] AETNA MEDICARE GOLD Advance Directives For more information, please contact: [phone] * Full Code (Latest Code Status on File) Date Activated Date Inactivated Comments 07/25/2024 6:39 PM 07/26/2024 10:29 PM * Full Code Date Activated Date Inactivated Comments 03/13/2018 2:33 PM 03/14/2018 10:36 PM Care Teams Product Responsibility Liaison Relationship Specialty Start Date End Date Allie Chong NP [address] [place] [address] PCP - General Nurse Practitioner 07/26/24
[2024-08-22 19:49] LABS: Add Urine Microscopic? YES; Appearance Urine Clear (Clear); Bacteria Urine Rare /hpf; Bilirubin Urine Negative (Negative); Blood Urine Negative (Negative); Color Urine Dark Yellow (Yellow); Glucose Urine UA Negative (Negative); Ketones Urine Negative (Negative); Leukocyte Esterase Ur 2+ LEU/UL (Negative); Nitrate Urine Negative (Negative); Protein Urine Negative (Negative); RBC Urine 0-2 /hpf (0-2); Specific Grav Ur 1.015 (1.001-1.035); Squamous Epithelial Cell Urine Moderate /hpf (Few)
[2024-08-22 20:04] LABS: Basophils Absolute Auto 0.1 K/mm3 (0.0-0.1); Basophils Percent Auto 0.8 % (0.2-1.2); Eosinophils Absolute Auto 0.3 K/mm3 (0-0.3); Eosinophils Percent Auto 2.9 % (0-4.4); Hematocrit 39.8 % (37.0-47.0); Hemoglobin 12.3 g/dL (12.0-15.0); Immature Granulocyte Absolute 0.05 K/mm3 (0.00-0.031); Immature Granulocyte Percent A 0.5 % (0-0.5); Lymphocytes Absolute Auto 3.52 K/mm3 (0.9-3.2); Lymphocytes Percent Auto 33.6 % (18.3-44.2); Mean Corpuscular HGB Conc 30.9 g/dl (32-36); Mean Corpuscular Volume 97.1 fl (80-100); Mean Platelet Volume 10.8 fl (7.4-10.4); Monocytes Absolute Auto 0.9 K/mm3 (0.1-0.6); Neutrophils Absolute Auto 5.6 K/mm3 (1.3-6.7); Neutrophils Percent Auto 53.2 % (45.5-73.1); Platelet Count Result 280 k/mm3 (150-375); Red Cell Distribution Width 12.7 % (11.5-14.5); White Blood Count 10.5 K/mm3 (4.5-10.0)
[2024-08-22 21:24] LABS: Alanine Aminotransferase 21 U/L (6-35); Albumin Level 4.5 g/dL (3.5-5.1); Alkaline Phosphatase 97 U/L (38-126); Anion Gap 9 mmol/L (4-12); Aspartate Amino Transferase 45 U/L (14-36); Bilirubin,Total 0.4 mg/dL (0.2-1.3); Blood Urea Nitrogen 17 mg/dL (7-17); Calcium 9.3 mg/dL (8.4-10.2); Carbon Dioxide 27 mmol/L (22-30); Chloride 102 mmol/L (98-107); Cholesterol 151 mg/dL (0-200); Estimated Glomerular Filt Rate > 60; Glucose 96 mg/dL (65-110); HDL Direct 56 mg/dL; Magnesium 2.1 mg/dL (1.6-2.3); Potassium 4.3 mmol/L (3.4-5.0); Sodium 138 mmol/L (137-145); Triglycerides 190 mg/dL (<150)
[2024-08-22 21:33] LABS: LDL Cholesterol Direct 51 mg/dL
[2024-08-22 22:04] LABS: Free T4 Free Thyroxine Reflex 0.82 ng/dL (0.78-2.19)
[2024-08-22 22:45] LABS: Total Triiodothyronine (T3) 1.21 NG/ML (0.97-1.69)
== END 2024-08-22 14:03 | disposition home or self-care (01) ==
PROVIDERS: PCP Nurse Practitioner Adult Health; Visit Provider Nurse Practitioner Adult Health
DX: R39.9 Unspecified symptoms and signs involving the genitourinary system (principal); E78.5 Hyperlipidemia, unspecified; I10 Essential (primary) hypertension
CPT/HCPCS: 36415; 80053; 80061; 81001; 83735; 84439; 84443; 84480; 85025; 87086

== ENCOUNTER 2024-10-03 09:34 | Outpatient (CLI) | payer MEDICARE, SELFPAY ==
--- OUTSIDE RECORDS SUMMARY | 2024-10-03 09:39 | XMS_ITS | Encounter Summary ---
Author Organization [facility] Address [address] [place] [address] Phone Care Team Providers Care Cage Unloader Name Role Phone Dwayne Torres MD Primary Care Provider [phone] Troy Dunn MD Primary Care Provider [phone] Hussain Torres MD Unavailable Reason for Visit * Reason Comments Medication Refill Encounter Details Date Type Department Care Team (Late st Contact Info) Description 04/10/2021 Refill [facility] - Primary Care - [place] [address] [place] [address] Kelsi Reyes MD [address] [place] [address] Medication Refill Social History Tobacco Use Types Packs/Day Years Used Date Smoking Tobacco: Every Day Cigarettes Smokeless Tobacco: Never Comments No Sex and Gender Information Value Date Recorded Sex Assigned at Not on file 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 Gender Identity Not on file Sexual Orientation Not on file documented as of this encounter Plan of Treatment Not on file documented as of this encounter Visit Diagnoses Not on filedocumented in this encounter Care Teams Cage Unloader Relationship Specialty Start Date End Date Dwayne Torres MD [address] [place] [address] PCP - General Internal Medicine 05/21/19 12/27/22 Troy Dunn MD [address] [facility] [address] [place] [address] PCP - General Family Medicine 12/28/22 Hussain Torres MD [address] [facility] [address] [place] [address] Consulting Physician Colon and Rectal Surgery 04/12/23 documented as of this encounter
--- OUTSIDE RECORDS SUMMARY | 2024-10-03 09:39 | XMS_ITS | Encounter Summary ---
Author Organization [facility] Address [address] [place] [address] Phone Care Team Providers Care Passenger Service Supervisor Name Role Phone Allie Chong NP Primary Care Provider [phone] Encounter Details Date Type Department Care Team (Late st Contact Info) Description 08/02/2024 Telephone [facility] Cardiology 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
--- OUTSIDE RECORDS SUMMARY | 2024-10-03 09:39 | XMS_ITS | Encounter Summary ---
Author Organization [facility] Address [address] [place] [address] Phone Care Team Providers Care Deputy Chief Counsel Name Role Phone Dwayne Torres MD Primary Care Provider Troy Dunn MD Primary Care Provider [phone] Hussain Torres MD Unavailable Reason for Visit * Reason Comments Medication Refill Encounter Details Date Type Department Care Team (Late st Contact Info) Description 11/01/2020 Refill [facility] - Primary Care - [place] [address] [place] [id number] [address] [place], [place] [id number] Medication Refill Social History Tobacco Use Types Packs/Day Years Used Date Smoking Tobacco: Every Day Cigarettes Smokeless Tobacco: Never Comments No Sex and Gender Information Value Date Recorded Sex Assigned at Not on file 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 * Telephone Encounter - Jessica Oliver CMA - 11/04/2020 9:24 AM CDT Not a GI medication, forwarded to primary documented in this encounter Plan of Treatment Not on file documented as of this encounter Visit Diagnoses Diagnosis Right foot pain Pain in limb documented in this encounter Care Teams Deputy Chief Counsel Relationship Specialty Start Date End Date Dwayne Torres MD [address] [place] [address] PCP - General Internal Medicine 05/21/19 12/27/22 Troy Dunn MD [address] [facility] [address] [place] [address] PCP - General Family Medicine 12/28/22 Hussain Torres MD [address] [facility] [address] [place] [address] Consulting Physician Colon and Rectal Surgery 04/12/23 documented as of this encounter
--- OUTSIDE RECORDS SUMMARY | 2024-10-03 09:39 | XMS_ITS | Referral Summary ---
Author Organization [facility] [address] Address [address] [place] [phone] Phone Care Team Providers Care Truck Rental Clerk Name Role Phone Allie Chong NP Primary Care Provider [phone] Encounters Date Type Department Care Team Description 10/02/2024 Telephone [facility] Vascular Surgery [facility] Medical Office Building [address] [place] [phone] Gerardo Melissa MD 09/26/2024 7:14 AM CDT - 09/26/2024 11:59 PM CDT Hospital Encounter [facility] [address] [place] [address] Occlusion of right common carotid artery Discharge Disposition: Discharge to home or self care 09/26/2024 8:45 AM CDT Ancillary Procedure [facility] [address] [facility] Advanced Medicine 8th [place] [address] [place] [phone] Occlusion of right common carotid artery 08/24/2024 Telephone [facility] Surgery [address] [facility] Floor 1 [place] [phone] Gerardo Melissa MD 08/24/2024 Orders Only [facility] Surgery [address] [facility] Advanced Medicine 8th [place] [address] [place] [phone] Gerardo Melissa MD Occlusion of right common carotid artery (Primary Dx) 08/03/2024 [facility] Post Discharge Follow up phone call [address] [phone] Ning Saez RN 08/02/2024 Telephone [facility] Cardiology [address] [facility] 8th [place] [address] [place] [phone] SridharAna 07/31/2024 1:00 PM CDT Office Visit [facility] Stroke [address] [facility] [address] [place] [phone] Garfield Larsen NP Cerebrovascular accident (CVA), unspecified mechanism (HCC) (Primary Dx); Stroke-like episode; Syncope and collapse; Episode of shaking; At risk for obstructive sleep apnea; Insomnia, unspecified type; Hospital discharge follow-up 07/25/2024 1:53 PM CDT - 07/26/2024 6:24 PM CDT Hospital Encounter [address] [phone] Mitch Elizabeth MD Blustein, MD Asher Vázquez Derek Lance, MD Stroke-like episode (Primary Dx); Sinus bradycardia [...] tablet 8 Active clopidogrel (PLAVIX) 75 mg tabletIndications:my ocardial infarction prevention Take 1 tablet (75 mg total) by mouth daily. 30 [address] (CYMBALTA) 60 mg capsuleIndications:C hronic Musculoskeletal Pain Take 1 capsule (60 mg total) by mouth nightly. 30 capsule 8 Active losartan (COZAAR) 100 mg tablet Take 1 tablet (100 mg total) by mouth daily 5 07/28/19 26 Active nicotine (NICODERM CQ) 21 mgIndications:Nicoti ne [facility] 1 patch on the skin daily for 24 hours 5 Active Active Problems Problem Noted Date Diagnosed Date Stroke-like episode 07/30/2024 Sinus bradycardia 07/26/2024 Hypertriglyceridemia 07/26/2024 Acute ischemic right frontal stroke 07/25/2024 07/25/2024 Occlusion of right common carotid artery 025 07/25/2024 Dyslipidemia, goal LDL below 70 07/25/2024 CAD (coronary artery disease) 07/25/2024 Rheumatoid arthritis of [facility] sites with negative rheumatoid factor 03/17/2018 Overview [...] joint. Assessment & Plan (03/17/2018 4:57 PM MIDDLEWARE ARCHITECT): This is based on pain and stiffness [...] 03/13/2018 Assessment & Plan (03/14/2018 4:46 PM MIDDLEWARE ARCHITECT): History of hypertension - Continue home losartan, carvedilol Assessment & Plan (03/13/2018 11:41 PM MIDDLEWARE ARCHITECT): History of hypertension - Continue home losartan, carvedilol Pyelonephritis 03/03/2018 Assessment & Plan (03/14/2018 4:46 PM MIDDLEWARE ARCHITECT): Patient presents with stabbing back pain, CVA tenderness, UA with 21-[address] shows large stone in R kidney, bilateral hydronephrosis, fat stranding. Lactate negative. - Discharge with 14-day course of Bactrim 800-160 PO BID - Outpatient Urology followup for nephrolithiasis Assessment & Plan (03/13/2018 11:40 PM MIDDLEWARE ARCHITECT): Patient presents with stabbing back pain, CVA [...] examination Assessment & Plan (03/14/2018 4:46 PM MIDDLEWARE ARCHITECT): Patient has a history of polyarthralgia, affecting multiple joints. - Continue Duloxetine - PRN Tylenol - PRN Ibuprofen Assessment & Plan (03/13/2018 11:40 PM MIDDLEWARE ARCHITECT): Patient has a history of polyarthralgia, affecting [...] on file Legal Sex Female 12:36 AM MIDDLEWARE ARCHITECT Gender Identity Not on file Sexual Orientation [...] 1:08 PM CDT Height 157.5 cm (5' 2) 07/31/2024 1:08 PM CDT Body Mass Index 31.46 07/31/2024 1:08 PM CDT Plan of Treatment Not on file Procedures Procedure Name Priority Date/Time Associated Diagnosis Comments US CAROTIDS DUPLEX BILATERAL Schedule Routine, Read Routine (OP Routine) 09/26/2024 8:57 AM CDT Occlusion of right common carotid artery CTA HEAD NECK W WO CONTRAST Schedule Routine, Read Routine (OP Routine) 09/26/2024 8:13 AM CDT Occlusion of right common carotid artery TRANSTHORACIC ECHO (TTE) COMPLETE W DOPPLER/CF W CONTRAST Pending Discharge 07/26/2024 4:54 PM CDT LIPOPROTEIN A (LPA) STAT 07/26/2024 1 1:10 AM CDT HEMOGLOBIN A1C STAT 07/26/2024 11:10 AM CDT LIPID PANEL STAT 07/26/2024 11:10 AM CDT VERIFY NOW CLOPIDOGREL STAT 07/26/2024 11:10 AM CDT HEARING AIDE TECHNICIAN EVALUATE AND TREAT Routine 07/26/2024 9:39 AM CDT HEARING AIDE TECHNICIAN EVALUATE AND TREAT Routine 07/26/2024 9:39 AM [...] ECG 12-LEAD STAT 07/25/2024 2:10 PM CDT [facility] CRITICAL CARE ILL/INJURED PATIENT INIT 30-74 MIN [...] Recently Relevant to Health Maintenance Results * US Carotids Duplex Bilateral (09/26/2024 8:57 AM CDT) Anatomical Region Laterality Modality Vascular Bilateral Ultrasound 09/26/2024 8:25 AM CDT Narrative 09/26/2024 12:35 PM CDT [facility] - Department of Vascular Surgery, Vascular Laboratory [address] [place] [address] Carotid Duplex Ultrasound Report Patient Name: ETHEL HOBSON : 1955 (69y ) Study Date: 09/26/2024 8:25:12 AM Gender: F Tech: IMAN Location: [facility] Provider: GERARDO MELISSA Quality: Adequate Order Provider: GERARDO MELISSA PROCEDURES: Carotid Report: Carotid duplex examination of the extracranial arteries was performed using 2D, color and spectral Doppler. INDICATIONS: I65.21 Occlusion and stenosis of right carotid artery. MEASUREMENTS: Right Value Units Left Value Units RT Prox CCA PSV 0 cm/sec LT Prox CCA PSV 185 cm/sec RT Prox CCA EDV 0 cm/sec LT Prox CCA EDV 41 cm/sec RT Distal CCA PSV 0 cm/sec LT Distal CCA PSV 102 cm/sec RT Distal CCA EDV 0 cm/sec LT Distal CCA EDV 33 cm/sec RT Prox ICA PSV 46 cm/sec LT Prox ICA PSV 93 cm/sec RT Prox ICA EDV 30 cm/sec LT Prox ICA EDV 33 cm/sec RT Mid ICA PSV 23 cm/sec LT Mid ICA PSV 133 cm/sec RT Mid ICA EDV 14 cm/sec LT Mid ICA EDV 40 cm/sec RT Distal ICA PSV 26 cm/sec LT Distal ICA PSV 112 cm/sec RT Distal ICA EDV 8 cm/sec LT Distal ICA EDV 35 cm/sec RT ECA Prx PSV 24 cm/sec LT ECA Prx PSV 99 cm/sec RT ICA/CCA 0.00 ratio LT ICA/CCA 1.30 ratio RT VERT PSV 22 cm/sec LT VERT PSV 90 cm/sec FINDINGS: Performing Incident Commander: Nimo Sifuentes RVT. Rt Common Carotid Artery: The plaque in the right CCA appears to be heterogeneous and smooth. No evidence of color filling and absent Doppler signals within the right common carotid artery. Significant atherosclerotic disease present on 2D imaging. Rt Internal Carotid Artery: Patent via retrograde flow from ECA. Unable to calculate velocity/ratio due to CCA occlusion. Rt External Carotid Artery: Patent with retrograde flow. Rt Vertebral Artery: The right vertebral artery is patent with antegrade flow. Lt Common Carotid Artery: The plaque in the left CCA appears to be heterogeneous and smooth. Atherosclerotic changes of the left common carotid artery with hemodynamically significant Doppler findings; elevated peak systolic velocity as above. Lt Internal Carotid Artery: The plaque in the left internal carotid artery appears to be heterogeneous and smooth. Atherosclerotic changes of the left internal carotid artery without hemodynamically significant Doppler findings. <50% stenosis. Lt External Carotid Artery: Patent left external carotid artery with evidence of atherosclerotic disease present. Lt Vertebral Artery: The left vertebral artery is patent with antegrade flow. CONCLUSIONS: 1. The right internal carotid artery is patent via retrograde flow from the ECA. 2. Right common carotid artery is occluded. 3. The left internal carotid artery disease is consistent with a less than 50% stenosis. 4. No evidence of hemodynamically significant stenosis in the left common carotid artery. 5. Normal, antegrade flow is noted in bilateral vertebral arteries. HISTORY: known occluded Right CCA, HTN, CAD. PREVIOUS STUDIES: No previous studies for comparison. DISCLAIMER: The study images and the final report will be retained in the patient chart by the Vascular Laboratory for the legally required time period. This chart constitutes the legal record of any testing performed. ATTESTATION: I have reviewed and interpreted the pertinent images and measurements of this study. I attest to the conclusions in the final report that is provided above. Electronically Signed By: Gerardo Melissa MD FACS 09/26/2024 12:16:27 PM CDT Procedure Note Gerardo Melissa MD - 09/26/2024 [facility] - Department of Vascular Surgery,Vascular Laboratory [address] [place] [address] Carotid Duplex Ultrasound Report Patient Name: ETHEL HOBSON : 1955 (69y ) Study Date: 09/26/2024 8:25:12 AM Gender: F Tech: IMAN Location: [facility] Ref Provider: GERARDO MELISSA Quality: Adequate Order Provider: GERARDO MELISSA PROCEDURES: Carotid Report: Carotid duplex examination of the extracranial arterieswas performed using 2D, color and spectral Doppler. INDICATIONS: I65.21 Occlusion and stenosis of right carotid artery. MEASUREMENTS: Right Value Units Left Value Units RT Prox CCA PSV 0 cm/sec LT Prox CCA PSV 185 cm/sec RT Prox CCA EDV 0 cm/sec LT Prox CCA EDV 41 cm/sec RT Distal CCA PSV 0 cm/sec LT Distal CCA PSV 102 cm/sec RT Distal CCA EDV 0 cm/sec LT Distal CCA EDV 33 cm/sec RT Prox ICA PSV 46 cm/sec LT Prox ICA PSV 93 cm/sec RT Prox ICA EDV 30 cm/sec LT Prox ICA EDV 33 cm/sec RT Mid ICA PSV 23 cm/sec LT Mid ICA PSV 133 cm/sec RT Mid ICA EDV 14 cm/sec LT Mid ICA EDV 40 cm/sec RT Distal ICA PSV 26 cm/sec LT Distal ICA PSV 112 cm/sec RT Distal ICA EDV 8 cm/sec LT Distal ICA EDV 35 cm/sec RT ECA Prx PSV 24 cm/sec LT ECA Prx PSV 99 cm/sec RT ICA/CCA 0.00 ratio LT ICA/CCA 1.30 ratio RT VERT PSV 22 cm/sec LT VERT PSV 90 cm/sec FINDINGS: Performing Incident Commander: Nimo Sifuentes RVT. Rt Common Carotid Artery: The plaque in the right CCA appears to beheterogeneous and smooth. No evidence of color filling and absent Doppler signals within theright common carotid artery. Significant atherosclerotic disease present on 2Dimaging. Rt Internal Carotid Artery: Patent via retrograde flow from ECA. Unable tocalculate velocity/ratio due to CCA occlusion. Rt External Carotid Artery: Patent with retrograde flow. Rt Vertebral Artery: The right vertebral artery is patent with antegradeflow. Lt Common Carotid Artery: The plaque in the left CCA appears to beheterogeneous and smooth. Atherosclerotic changes of the left common carotid artery withhemodynamically significant Doppler findings; elevated peak systolic velocity as above. Lt Internal Carotid Artery: The plaque in the left internal carotid arteryappears to be heterogeneous and smooth. Atherosclerotic changes of the left internalcarotid artery without hemodynamically significant Doppler findings. <50% stenosis. Lt External Carotid Artery: Patent left external carotid artery withevidence of atherosclerotic disease present. Lt Vertebral Artery: The left vertebral artery is patent with antegradeflow. CONCLUSIONS: 1. The right internal carotid artery is patent via retrograde flow fromthe ECA. 2. Right common carotid artery is occluded. 3. The left internal carotid artery disease is consistent with a less than50% stenosis. 4. No evidence of hemodynamically significant stenosis in the left commoncarotid artery. 5. Normal, antegrade flow is noted in bilateral vertebral arteries. HISTORY: known occluded Right CCA, HTN, CAD. PREVIOUS STUDIES: No previous studies for comparison. DISCLAIMER: The study images and the final report will be retained in the patientchart by the Vascular Laboratory for the legally required time period. This chartconstitutes the legal record of any testing performed. ATTESTATION: I have reviewed and interpreted the pertinent images and measurements ofthis study. I attest to the conclusions in the final report that is provided above. Electronically Signed By: Gerardo Melissa MD, FACS 09/26/2024 12:16:27 PM CDT us Gerardo Melissa MD IMG US PROCEDURES Final Resul t * CTA Head Neck W WO Contrast (09/26/2024 8:13 AM CDT) Anatomical Region Laterality Modality Head and Neck N/A Computed Tomogra phy 09/26/2024 9:53 AM CDT Impressions 09/26/2024 1:11 PM CDT 1. No acute intracranial abnormality. 2. Occlusion of the proximal brachiocephalic and right common carotid artery with distal reconstitution of flow described above. 3. Minimal desiccation of the right distal V3 and proximal V4 segments with distal reconstitution of flow. 4. Left thyroid nodule for which ultrasound is recommended for further evaluation if not previously performed. Dictated by: Teofilo Rodriguez M.D. The radiology attending physician has personally reviewed this study, and had reviewed and/or edited this written report and agrees with it. Electronically signed by: Tai Fleming M.D. Narrative 09/26/2024 1:11 PM CDT EXAMINATION: 1. Computed tomography angiography (CTA) of the head without and with contrast 2. Computed tomography angiography (CTA) of the neck with contrast HISTORY: Carotid stenosis TECHNIQUE: CT of the head was performed with images acquired from skull base to vertex without intravenous contrast. Computed tomographic angiography was obtained from the aortic arch to the vertex following the uneventful administration of intravenous contrast. 3D images of the CTA were generated on a dedicated workstation/fruit preserver. Contrast information: 100 mL Optiray-350 IV COMPARISON: 07/25/2024 FINDINGS: HEAD: No acute intracranial hemorrhage. No mass effect or midline shift. The milian-white differentiation is normal. Scattered white matter hypoattenuation is nonspecific but most commonly due to chronic small vessel ischemia. A hypodensity in the right parietal white matter is new since 07/25/2024, at the site of acute infarct on the prior MRI (series 4 image 34). Chronic right caudate head lacunar infarct, unchanged. Left mastoid effusion. The orbits are normal. Paranasal sinuses are clear. NECK: Scattered subcentimeter lymph nodes are seen in the neck. None are pathologically enlarged. The muscles of the neck are normal. Fascial planes are preserved and the deep spaces of the neck are normal. The visualized airway is widely patent. 1.5 cm left thyroid nodule with calcifications. Centrilobular emphysema. Changes of median sternotomy. Multilevel cervical degenerative disc disease. No suspicious osseous lesion. CTA: Three-vessel aortic arch. Atherosclerosis of the visualized thoracic aorta with occlusion of the proximal brachiocephalic and subclavian arteries with reconstitution of flow in the mid subclavian artery due to intercostal collaterals. The right common carotid artery is occluded at the origin to the level of the carotid bifurcation where there is reconstitution of flow distally. Right vertebral artery is slightly diminutive but patent. The left common carotid artery has mild stenosis at its origin. Mixed plaque is present at the left carotid bifurcation without significant stenosis. The left internal carotid artery is tortuous but patent. The anterior middle cerebral arteries are patent. The left vertebral artery is dominant. The right V3 segment is not well opacified distally with reconstitution of normal flow in the distal V4 segment secondary to collateral from the left vertebral artery. The basilar, left intradural vertebral, and posterior cerebral arteries are patent. No evidence of aneurysm. Procedure Note Tai Fleming MD - 09/26/2024 EXAMINATION: 1. Computed tomography angiography (CTA) of the head without and with contrast 2. Computed tomography angiography (CTA) of the neck with contrast HISTORY: Carotid stenosis TECHNIQUE: CT of the head was performed with images acquired from skull base to vertex without intravenous contrast. Computed tomographic angiography was obtained from the aortic arch to the vertex following the uneventful administration of intravenous contrast. 3D images of the CTA were generated on a dedicated workstation/fruit preserver. Contrast information: 100 mL Optiray-350 IV COMPARISON: 07/25/2024 FINDINGS: HEAD: No acute intracranial hemorrhage. No mass effect or midline shift. The milian-white differentiation is normal. Scattered white matter hypoattenuation is nonspecific but most commonly due to chronic small vessel ischemia. A hypodensity in the right parietal white matter is new since 07/25/2024, at the site of acute infarct on the prior MRI (series 4 image 34). Chronic right caudate head lacunar infarct, unchanged. Left mastoid effusion. The orbits are normal. Paranasal sinuses are clear. NECK: Scattered subcentimeter lymph nodes are seen in the neck. None are pathologically enlarged. The muscles of the neck are normal. Fascial planes are preserved and the deep spaces of the neck are normal. The visualized airway is widely patent. 1.5 cm left thyroid nodule with calcifications. Centrilobular emphysema. Changes of median sternotomy. Multilevel cervical degenerative disc disease. No suspicious osseous lesion. CTA: Three-vessel aortic arch. Atherosclerosis of the visualized thoracic aorta with occlusion of the proximal brachiocephalic and subclavian arteries with reconstitution of flow in the mid subclavian artery due to intercostal collaterals. The right common carotid artery is occluded at the origin to the level of the carotid bifurcation where there is reconstitution of flow distally. Right vertebral artery is slightly diminutive but patent. The left common carotid artery has mild stenosis at its origin. Mixed plaque is present at the left carotid bifurcation without significant stenosis. The left internal carotid artery is tortuous but patent. The anterior middle cerebral arteries are patent. The left vertebral artery is dominant. The right V3 segment is not well opacified distally with reconstitution of normal flow in the distal V4 segment secondary to collateral from the left vertebral artery. The basilar, left intradural vertebral, and posterior cerebral arteries are patent. No evidence of aneurysm. IMPRESSION: 1. No acute intracranial abnormality. 2. Occlusion of the proximal brachiocephalic and right common carotid artery with distal reconstitution of flow described above. 3. Minimal desiccation of the right distal V3 and proximal V4 segments with distal reconstitution of flow. 4. Left thyroid nodule for which ultrasound is recommended for further evaluation if not previously performed. Dictated by: Teofilo Rodriguez M.D. The radiology attending physician has personally reviewed this study, and had reviewed and/or edited this written report and agrees with it. Electronically signed by: Tai Fleming M.D. us Gerardo Melissa MD IMG CT PROCEDURES Final Resul t * TRANSTHORACIC ECHO (TTE) COMPLETE W DOPPLER/CF W CONTRAST (07/26/2024 4:54 PM CDT) Anatomical Region Laterality Modality Ultrasound 07/26/2024 3:41 PM CDT Narrative 07/26/2024 5:[address] [facility] [place] [address] Transthoracic Echocardiographic Report Patient Name: ETHEL HOBSON M : 1955 (68y 10m) Gender: F Study Date: 07/26/2024 03:41:30 PM Ht(Inch): 62 Wt(Lb): 169.09 BSA: 1.83 Incident Commander: Ky Thompson [facility] Location: [id number] Order Provider: PHIL BURDICK Heart Rate: 62 [...] Procedure Note Ana Ortega MD - 07/26/2024 [facility] [place] [place] [address] Transthoracic Echocardiographic Report Patient Name: ETHEL HOBSON M : 1955 (68y 10m) Gender: F Study Date: 07/26/2024 03:41:30 PM Ht(Inch): 62 Wt(Lb): 169.09 BSA: 1.83 Incident Commander: Ky Thompson [facility] Location: [id number] Order Provider:BURDICKMINIK Heart Rate: 62 BMI: 30.92 BP: 131 [...] LA Length 4C 4.94 cm MV Decel Lkcp172.69 msec [ 104.00 - 258.00 ] LA [...] MD LAB BLOOD ORDERABLES Final Result [facility] One [facility] [place] [address] * Lipoprotein a (LPa) (07/26/2024 11:10 AM CDT) Lipoprotein A 32 <75 nmol/L [facility] Comment: ADDITIONAL INFORMATION Please notice that Lp(a) values are reported in molar units (nmol/L). These units are recommended by professional society guidelines and expert opinion statements. Measured results and risk thresholds are higher than those generated using mass units (mg/dL). Cardiovascular risk increases starting at 75 nmol/L. Lp(a) >=125 nmol/L is considered a risk enhancing factor by the [place] [employer]. This test has been modified from the cytotechnologist's instructions. Its performance characteristics were determined by [facility] in a manner consistent with CLIA requirements. This test has not been cleared or approved by the U.S. Food and Drug Administration. Test Performed by: [place] [id number] Instructor: Christie Nichols Ph.D.; CLIA# [id number] Blood 07/26/2024 11:1 0 AM CDT 07/26/2024 11:59 AM CDT us Phil Burdick MD LAB BLOOD ORDERABLES Final Result [facility] One [facility] [place] [address] [facility] * (ABNORMAL) Hemoglobin A1c (07/26/2024 11:10 AM CDT) Hgb A1C 5.8(H) 4.0 - 5.6 % Estimated Average Glucose 120 mg/dL [facility] Comment: The ADA recommends reporting an estimated [...] Burdick MD LAB BLOOD ORDERABLES Final Result [facility] One [facility] [place] [address] * (ABNORMAL) Lipid panel (07/26/2024 11:10 AM [...] revised on 2017. Triglycerides 156(H) <=149 mg/dL [facility] Comment: Interpretive Data Ages < or = [...] revised on 2017. HDL 47 >=40 mg/dL [facility] Comment: Interpretive Data Ages < or = [...] on 2017. LDL, calculated 66 <=129 mg/dL [facility] Comment: Interpretive Data Ages < or = [...] revised on 2023. Non-HDL Cholesterol 93 mg/dL [facility] Comment: Interpretive Data Ages < or = [...] last revised on 2017. Chol/HDL ratio 3 [facility] Blood 07/26/2024 11:1 0 AM CDT 07/26/2024 11:32 AM CDT us Phil Burdikc MD LAB BLOOD ORDERABLES Final Result [facility] [place] [address] * HEARING AIDE TECHNICIAN Evaluation and Treatment (07/26/2024 9:39 AM CDT) Narrative Janneth Morin, HEARING AIDE TECHNICIAN - 07/26/2024 9:39 AM CDT Janneth Morin, HEARING AIDE TECHNICIAN 07/26/2024 10:53 AM Speech-Language Pathology: Clinical Bedside [...] Current Diet Order: NPO General Information Ethel M Amena 07/26/24 General Observations: Alert, pleasant, at [...] of speech/language/cognition completed after CSE; see additional HEARING AIDE TECHNICIAN note this date for assessment information. Assessment [...] MASA score consistent with clinical impression Plan HEARING AIDE TECHNICIAN Frequency of Services during current admission: One-time visit (Discharge from this service) HEARING AIDE TECHNICIAN Recommendation (Add'l Services): No further HEARING AIDE TECHNICIAN indicated Next Visit Plan:No further ST warranted Please reference care plan for treatment goals, if indicated. Discharge Summary Statement If this is the last swallow therapy visit, this serves as the discharge summary. us Phil Burdick MD HEARING AIDE TECHNICIAN ORDERABLES Final Resu lt * HEARING AIDE TECHNICIAN Evaluation and Treatment (07/26/2024 9:39 AM CDT) Narrative Janneth Morin, HEARING AIDE TECHNICIAN - 07/26/2024 9:39 AM Janneth Hunt, HEARING AIDE TECHNICIAN 07/26/2024 10:53 AM Speech-Language Pathology: Clinical Bedside [...] of speech/language/cognition completed after CSE; see additional HEARING AIDE TECHNICIAN note this date for assessment information. Assessment [...] MASA score consistent with clinical impression Plan HEARING AIDE TECHNICIAN Frequency of Services during current admission: One-time visit (Discharge from this service) HEARING AIDE TECHNICIAN Recommendation (Add'l Services): No further HEARING AIDE TECHNICIAN indicated Next Visit Plan:No further ST warranted Please reference care plan for treatment goals, if indicated. Discharge Summary Statement If this is the last swallow therapy visit, this serves as the discharge summary. Mitch Elizabeth MD HEARING AIDE TECHNICIAN ORDERABLES Final Result * Urinalysis reflex to microscopic and culture Urine, clean voided (07/26/2024 6:09 AM CDT) Color, ur Straw Yellow Clarity, ur Clear Clear [facility] Specific gravity, ur 1.013 1.003 - 1.[address] [facility] pH, urine 6.0 [facility] Comment: Interpretive Data U rine pH is affected by diet, medications, systemic acid-base disturbances, and renal tubular function. pH may affect urinary stone formation. For example, urine pH below 6.0 may help reduce the tendency for calcium phosphate stones and pH greater than 6.0 may reduce the tendency for uric acid stone formation. Source: [facility] Current Interpretive Data was last revised on 2017 Protein, ur ql Negative Negative [facility] Glucose, ur ql Negative Negative [facility] Ketones, ur Negative Negative [facility] Bilirubin, ur Negative Negative [facility] Blood, ur Negative Negative [facility] Urobilinogen, ur <2.0 <2.0 mg/dL [facility] Nitrite, ur Negative Negative [facility] Leukocyte esterase, ur Negative Negative [facility] UA reflex comment Reflex conditions for microscopic UA and culture not met. [facility] Urine, clean voided 07/26/2024 6:09 AM CDT 07/26/2024 6:54 AM CDT us Phil Burdick MD LAB MICROBIOLOGY - GENERAL ORDERABLES Final Result [facility] [place] [address] * Drugs of Abuse Screen, Urine without [...] 2022. Barbiturates, ur Not Detected CutOff 200ng/mL [facility] Comment: Interpretive Data - Barbiturates: Samples containing greater than 200 ng/mL secobarbital or other cross-reacting barbiturate compounds are reported as positive. False positive and false negative results are possible. Confirmatory testing required for definitive results. Current Interpretive Data was last reviewed 2022. Benzodiazepines, ur Not Detected CutOff 100ng/mL [facility] Comment: Interpretive Data - Benzodiazepines: Samples containing greater than 100 ng/mL nordiazepam or other cross-reacting compounds are reported as positive. False positive and false negative results are possible. Confirmatory testing required for definitive results. Current Interpretive Data was last reviewed 2022. Cannabinoids, ur Not Detected CutOff 50 ng/mL [facility] Comment: Interpretive Data - Cannabinoids: Samples containing greater than 50 ng/mL delta-9 THC -COOH or other cross- reacting compounds are reported as positive. False positive and false negative results are possible. Confirmatory testing required for definitive results. Current Interpretive Data was last reviewed 2022. Cocaine, ur Not Detected CutOff 150ng/mL [facility] Comment: Interpretive Data - Cocaine: Samples containing greater than 150 ng/mL benzoylecgonine or other cross- reacting compounds are reported as positive. False positive and false negative results are possible. Confirmatory testing required for definitive results. Current Interpretive Data was last reviewed 2022. Fentanyl, Ur Not Detected CutOff 5 ng/mL [facility] Comment: Interpretive Data - Fentanyl: Samples containing greater than 5 ng/mL norfentanyl, fentanyl, or other cross-reacting fentanyl compounds are reported as positive. False positive and false negative results are possible. Confirmatory testing required for definitive results. Current Interpretive Data was last reviewed 2023. Methadone, ur Not Detected CutOff 300ng/mL [facility] Comment: Interpretive Data - Methadone: Samples containing greater than 300 ng/mL d,l-methadone or other cross-reacting compounds are reported as positive. False positive and false negative results are possible. Confirmatory testing required for definitive results. Current Interpretive Data was last reviewed 2022. Opiates, ur Not Detected CutOff 300ng/mL [facility] Comment: Interpretive Data - Opiates: Samples containing greater than 300 ng/mL morphine or other cross-reacting compounds are reported as positive. False positive and false negative results are possible. Confirmatory testing required for definitive results. Current Interpretive Data was last reviewed 2022. Oxycodone, ur Not Detected CutOff 100ng/mL [facility] Comment: Interpretive Data - Oxycodone: Samples containing greater than 100 ng/mL oxycodone or other cross-reacting compounds are reported as positive. False positive and false negative results are possible. Confirmatory testing required for definitive results. Current Interpretive Data was last reviewed 2022. Phencyclidine, ur Not Detected CutOff 25 ng/mL [facility] Comment: Interpretive Data - Phencyclidine: Samples containing greater than 25 ng/mL phencyclidine or other cross-reacting compounds are reported as positive. False positive and false negative results are possible. Confirmatory testing required for definitive results. Current Interpretive Data was last reviewed 2022. Urine Creatinine 45 mg/dL [facility] Comment: Interpretive Data Urine Creatinine: < 10 mg/dL is extremely dilute = or > 10 but < 20 mg/dL is dilute = or > 20 mg/dL is normal Current Interpretive Data was last revised on 2017. Urine 07/26/2024 6:09 AM CDT 07/26/2024 6:54 AM CDT Narrative [facility] - 07/26/2024 7:31 AM CDT Drug of Abuse screening is performed by immunoassay for medical purposes only. This is not to be used for Pain Management purposes. us Phil Burdick MD LAB URINE ORDERABLES Final Result [facility] [place] [address] * eGFR (07/25/2024 8:52 PM CDT) eGFR [...] BLOOD ORDERABLES Final Result Performing Organization Address City/[facility]/ZIP Co de Phone Number [facility] [place] [address] * CBC without differential (07/25/2024 8:52 PM CDT) Pathologist [facility] WBC 8.1 3.8 - 9.9 K/cumm Hgb 12.4 11.9 - 15.5 g/dL [facility] Hct 37.0 35.6 - 45.5 % [facility] Plt 247 150 - 400 K/cumm [facility] MPV 10.7 9.1 - 12.3 fL [facility] RBC 4.11 3.90 - 5.20 M/cumm [facility] MCV 90.0 81.3 - 96.4 fL [facility] MCH 30.2 27.1 - 33.3 pg [facility] MCHC 33.5 32.3 - 35.7 g/dL [facility] RDW CV 12.4 11.1 - 14.9 % [facility] RDW SD 40.1 35.7 - 48.1 fL [facility] NRBC abs 0.00 0.00 - 0.01 K/cumm [facility] Blood 07/25/2024 8:52 PM CDT 07/25/2024 9:54 PM CDT Phil Burdick MD LAB BLOOD ORDERABLES Final Result [facility] [place] [address] * Phosphorus (07/25/2024 8:52 PM CDT) Pathologist [facility] Phosphorus, pl 3.8 2.3 - 4.5 mg/dL Blood 07/25/2024 8:52 PM CDT 07/25/2024 9:54 PM CDT Phil Burdick MD LAB BLOOD ORDERABLES Final Result [facility] [place] [address] * Magnesium (07/25/2024 8:52 PM CDT) Pathologist [facility] Magnesium 2.1 1.4 - 2.5 mg/dL Blood 07/25/2024 8:52 PM CDT 07/25/2024 9:54 PM CDT Phil Burdick MD LAB BLOOD ORDERABLES Final Result Performing Organization Address [facility] de Phone Number [facility] [place] [address] * Basic metabolic panel (07/25/2024 8:52 PM CDT) [facility] Sodium 142 135 - 145 mmol/L Potassium, pl 4.3 3.3 - 4.9 mmol/L [facility] Chloride 103 97 - 110 mmol/L [facility] CO2 28 22 - 32 mmol/L [facility] Anion gap 11 2 - 15 mmol/L [facility] BUN 17 6 - 25 mg/dL [facility] Creatinine 0.83 0.60 - 1.10 mg/dL [facility] Glucose 87 70 - 199 mg/dL [facility] Comment: Interpretive Data Fasting glucose >/= 126 [...] 2022. Calcium 9.4 8.5 - 10.3 mg/dL [facility] Blood 07/25/2024 8:52 PM CDT 07/25/2024 9:54 PM CDT Phil Burdick MD LAB BLOOD ORDERABLES Final Result Performing Organization Address [facility] Co de Phone Number [facility] Department [place] [address] * VerifyNow clopidogrel (07/25/2024 3:44 PM CDT) [...] ORDERABLES Suni l Result Performing Organization Address City/[facility]/ZIP Co de Phone Number [facility] [place] [address] * Troponin I high-sensitivity 2-hour (07/25/2024 3:23 PM CDT) Trop I hs <4 <=17 ng/L Comment: Interpretive Data For further hscTnI resources including the diagnostic algorithm and an aid in interpretation, copy and paste this link: https://bjhlab.testcatalog.org/show/hsTrop-[email or web address] Current Interpretive Data last revised 2019. Trop I hs delta 0 ng/L [facility] Trop I hs interp Insignificant [facility] Blood 07/25/2024 3:23 PM CDT 07/25/2024 3:32 PM CDT us Willian Irvin MD LAB BLOOD ORDERABLES Final R esult [facility] [place] [address] * MRA Head and Carotids W WO Contrast (07/25/2024 3:17 PM CDT) Anatomical Region Laterality Modality Head and Neck N/A Magnetic Resonan ce 07/25/2024 3:30 PM CDT Addenda Addendum by Loretta Ricks MD PhD on 09/28/2024 10:27 AM CDT ADDENDUM Addendum issued at 09/28/2024 10:[address] Ricks. The purpose of this addendum is to correct the title and technique. The entire exam (Ferny MRI, Brain MRA, and Neck MRA) was performed without the use of intravenous contrast. There is no change to the results or impression for the study. Electronically signed by: Loretta Ricks M.D., Ph.D. Impressions 07/25/2024 5:13 PM CDT 1. Diffusion [...] 2. Magnetic resonance angiography (MRA) of the pwswna-cs-Ejlpeh without and with contrast 3. Magnetic resonance angiography (MRA) of the neck without and with contrast HISTORY: 68-year-old female with concern for acute infarct. left arm numbness and facial droop, NIHSS 4 TECHNIQUE: Multiplanar multi-weighted MRI of the brain and brainstem was performed without intravenous contrast using the hyperacute stroke protocol. Magnetic resonance angiography of the fbxtsm-la-Hyyrnp was performed using a separate data acquisition with a non-contrast qkxn-ak-kwmrsc technique and a post-contrast technique to produce axial thin-slice source images. These images were then used to generate maximum intensity projection (MIP) images. Magnetic resonance angiography of the neck was performed using a separate data acquisition with a non-contrast nxms-rt-rpseur technique and a post-contrast technique to produce [...] angiogram. MRA HEAD: Decreased signal on the swlk-jf-sgokmp sequence in the intracranial right internal carotid [...] 2. Magnetic resonance angiography (MRA) of the nfgdzb-kf-Efdjzl without and with contrast 3. Magnetic resonance angiography (MRA) of the neck without and with contrast HISTORY: 68-year-old female with concern for acute infarct. left arm numbness and facial droop, NIHSS 4 TECHNIQUE: Multiplanar multi-weighted MRI of the brain and brainstem was performed without intravenous contrast using the hyperacute stroke protocol. Magnetic resonance angiography of the czikbc-ct-Unvftq was performed using a separate data acquisition with a non-contrast kgxm-er-osjqwb technique and a post-contrast technique to produce axial thin-slice source images. These images were then used to generate maximum intensity projection (MIP) images. Magnetic resonance angiography of the neck was performed using a separate data acquisition with a non-contrast crlp-mn-kdnqmr technique and a post-contrast technique to produce [...] angiogram. MRA HEAD: Decreased signal on the ficg-wa-kfvtnf sequence in the intracranial right internal carotid [...] Loretta Ricks M.D., Ph.D. Casa Sarah MD IMG MRI PROCEDURES Edit ed Result - Final * Critical MRI Brain Hyperacute Stroke W WO Contrast (07/25/2024 3:17 PM CDT) Anatomical Region Laterality Modality Head and Neck N/A Magnetic Resonan ce 07/25/2024 3:30 PM CDT Addenda Addendum by Loretta Ricks MD PhD on 09/28/2024 10:27 AM CDT ADDENDUM Addendum issued at 09/28/2024 10:[address] Ricks. The purpose of this addendum is to correct the title and technique. The entire exam (Ferny MRI, Brain MRA, and Neck MRA) was performed without the use of intravenous contrast. There is no change to the results or impression for the study. Electronically signed by: Loretta Ricks M.D., Ph.D. Impressions 07/25/2024 5:13 PM CDT 1. Diffusion [...] 2. Magnetic resonance angiography (MRA) of the zgtxfh-bw-Dodzdk without and with contrast 3. Magnetic resonance angiography (MRA) of the neck without and with contrast HISTORY: 68-year-old female with concern for acute infarct. left arm numbness and facial droop, NIHSS 4 TECHNIQUE: Multiplanar multi-weighted MRI of the brain and brainstem was performed without intravenous contrast using the hyperacute stroke protocol. Magnetic resonance angiography of the ptlmul-rm-Ndowqx was performed using a separate data acquisition with a non-contrast hutk-kg-ngzygd technique and a post-contrast technique to produce axial thin-slice source images. These images were then used to generate maximum intensity projection (MIP) images. Magnetic resonance angiography of the neck was performed using a separate data acquisition with a non-contrast mzep-er-qsibph technique and a post-contrast technique to produce [...] angiogram. MRA HEAD: Decreased signal on the objo-ax-qdwyxc sequence in the intracranial right internal carotid [...] 2. Magnetic resonance angiography (MRA) of the dikhee-jk-Dqfsje without and with contrast 3. Magnetic resonance angiography (MRA) of the neck without and with contrast HISTORY: 68-year-old female with concern for acute infarct. left arm numbness and facial droop, NIHSS 4 TECHNIQUE: Multiplanar multi-weighted MRI of the brain and brainstem was performed without intravenous contrast using the hyperacute stroke protocol. Magnetic resonance angiography of the yiklor-qz-Qkvana was performed using a separate data acquisition with a non-contrast gmpg-yp-brnbye technique and a post-contrast technique to produce axial thin-slice source images. These images were then used to generate maximum intensity projection (MIP) images. Magnetic resonance angiography of the neck was performed using a separate data acquisition with a non-contrast rnlv-go-ztwebu technique and a post-contrast technique to produce [...] angiogram. MRA HEAD: Decreased signal on the dokp-bf-gqbpnq sequence in the intracranial right internal carotid [...] and 3:04 pm. Dictated by: Hilda Sim, DO The radiology attending physician has personally reviewed this study, and had reviewed and/or edited this written report and agrees with it. Electronically signed by: Loretta Ricks M.D., Ph.D. us Casa Sarah MD IMG MRI PROCEDURES Edit ed Result - Final * ECG 12-LEAD (07/25/2024 2:10 PM CDT) [...] lead Date/Time: 07/25/2024 2:10 PM Performed by: Micth Elizabeth MD Authorized by: Mitch Elizabeth MD [...] ORDERABLES Final Result [facility] * [place] CRITICAL CARE ILL/INJURED PATIENT INIT 30-74 MIN [...] us Mitch Elizabeth MD IN CLINIC/BEDSIDE LANI WRIGHTSEAN Final Result * CT Stroke Head WO [...] INR, bld, POC 1.0 0.9 - 1.[address] [facility] Blood 07/25/2024 1:48 PM CDT 07/25/2024 1:48 PM CDT Mitch Elizabeth MD LAB POCT ORDERABLES - DEVICE Final Result [facility] [place] [address] * POCT glucose (07/25/2024 1:47 PM CDT) [facility] Glucose, POC 102 70 - 199 mg/dL Blood 07/25/2024 1:47 PM CDT 07/25/2024 1:47 PM CDT Notinfile Unknown LAB POCT ORDERABLES - DEVICE F inal Result Performing Organization Address [facility] [place] [address] * Troponin I high-sensitivity series (baseline, 2hr, 4hr, 6hr) (07/25/2024 1:45 PM CDT) [facility] Trop I hs 4 <=17 ng/L Comment: Code Blue Specimen Interpretive Data For further hscTnI resources including the diagnostic algorithm and an aid in interpretation, copy and paste this link: https://bjhlab.testcatalog.org/show/[email or web address]-1 Current Interpretive Data last revised 2019. Blood 07/25/2024 1:45 PM CDT 07/25/2024 1:58 PM CDT Mitch Elizabeth MD LAB BLOOD ORDERABLES F inal Result Performing Organization Address City/[facility] Co de Phone Number [facility] [place] [address] * eGFR (07/25/2024 1:45 PM CDT) [facility] eGFR 78 >=60 mL/min/1. 73 m2 Comment: [...] MD LAB BLOOD ORDERABLES Final R esult [facility] [place] [address] * Differential, auto (07/25/2024 1:45 PM CDT) Neutrophil abs 4.2 1.5 - 6.5 K/cumm Imm gran abs 0.0 0.0 - 0.1 K/cumm [facility] Lymphocyte abs 2.3 0.8 - 3.3 K/cumm [facility] Monocyte abs 0.7 0.2 - 0.8 K/cumm [facility] Eosinophil abs 0.2 0.0 - 0.5 K/cumm [facility] Basophil abs 0.1 0.0 - 0.1 K/cumm [facility] Neutrophil pct 55.7 % [facility] Comment: Interpretive Data Percent cell count reference ranges are not reported, since discordance with absolute values may lead to misinterpretation of CBC data. Current Interpretive Data was last revised on 2017. Imm gran pct 0.4 % [facility] Comment: Interpretive Data Percent cell count reference ranges are not reported, since discordance with absolute values may lead to misinterpretation of CBC data. Current Interpretive Data was last revised on 2017. Lymphocyte pct 30.9 % [facility] Comment: Interpretive Data Percent cell count reference ranges are not reported, since discordance with absolute values may lead to misinterpretation of CBC data. Current Interpretive Data was last revised on 2017. Monocyte pct 9.3 % [facility] Comment: Interpretive Data Percent cell count reference ranges are not reported, since discordance with absolute values may lead to misinterpretation of CBC data. Current Interpretive Data was last revised on 2017. Eosinophil pct 2.8 % [facility] Comment: Interpretive Data Percent cell count reference ranges are not reported, since discordance with absolute values may lead to misinterpretation of CBC data. Current Interpretive Data was last revised on 2017. Basophil pct 0.9 % [facility] Comment: Interpretive Data Percent cell count reference ranges are not reported, since discordance with absolute values may lead to misinterpretation of CBC data. Current Interpretive Data was last revised on 2017. Blood 07/25/2024 1:45 PM CDT 07/25/2024 1:58 PM CDT us Willian Irvin MD LAB BLOOD ORDERABLES Final R esult [facility] [place] [address] * CBC with auto differential (07/25/2024 1:45 PM CDT) WBC 7.5 3.8 - 9.9 K/cumm Comment:Code Blue Specimen Hgb 12.9 11.9 - 15.5 g/dL [facility] Hct 38.8 35.6 - 45.5 % [facility] Plt 277 150 - 400 K/cumm [facility] MPV 10.4 9.1 - 12.3 fL [facility] RBC 4.29 3.90 - 5.20 M/cumm [facility] MCV 90.4 81.3 - 96.4 fL [facility] MCH 30.1 27.1 - 33.3 pg [facility] MCHC 33.2 32.3 - 35.7 g/dL [facility] RDW CV 12.7 11.1 - 14.9 % [facility] RDW SD 41.4 35.7 - 48.1 fL [facility] NRBC abs 0.00 0.00 - 0.01 K/cumm [facility] Blood Venous blood specimen / Unknown 07/25/2024 1:45 PM CDT 07/25/2024 1:58 PM CDT Narrative [facility] - 07/25/2024 2:02 PM CDT Potential Stroke Patient Mitch Elizabeth MD LAB BLOOD ORDERABLES F inal Result Performing Organization Address [facility] Co de Phone Number [facility] [email or web address] [address] * aPTT (07/25/2024 1:45 PM CDT) aPTT 35 28 - 38 sec Comment: Code Blue Specimen Interpretive Data Heparin therapeutic range: 66.0 - 100.0 seconds. Range based on correlation with therapeutic heparin activity range of 0.3 - 0.7 Units/mL. Current interpretive data was last revised on 2023. Blood Venous blood specimen / Unknown 07/25/2024 1:45 PM CDT 07/25/2024 1:58 PM CDT Narrative [facility] - 07/25/2024 2:09 PM CDT Potential stroke patient. Mitch Elizabeth MD LAB BLOOD ORDERABLES F inal Result Performing Organization Address City/[facility] Co de Phone Number [facility] [place] [address] * (ABNORMAL) Comprehensive metabolic panel (07/25/2024 1:45 PM CDT) Sodium 141 135 - 145 mmol/L Comment:Code Blue Specimen Potassium, pl 5.4(H) 3.3 - 4.9 mmol/L [facility] Comment: Hemolyzed; Potassium value may be falsely elevated by as much as 0.6-1.0 mmol/L. Suggest redraw and reanalysis. Code Blue Specimen Chloride 106 97 - 110 mmol/L [facility] Comment:Code Blue Specimen CO2 27 22 - 32 mmol/L [facility] Comment:Code Blue Specimen Anion gap 8 2 - 15 mmol/L [facility] Comment:Code Blue Specimen BUN 18 6 - 25 mg/dL [facility] Comment:Code Blue Specimen Creatinine 0.82 0.60 - 1.10 mg/dL [facility] Comment:Code Blue Specimen Glucose 105 70 - 199 mg/dL [facility] Comment: Code Blue Specimen Interpretive Data Fasting [...] 2022. Calcium 9.4 8.5 - 10.3 mg/dL [facility] Comment:Code Blue Specimen Bilirubin, total 0.5 0.1 - 1.2 mg/dL [facility] Comment:Code Blue Specimen Protein, pl 7.3 6.5 - 8.5 g/dL [facility] Comment:Code Blue Specimen Albumin 4.0 3.5 - 5.0 g/dL [facility] Comment:Code Blue Specimen Alk phos 92 40 - 130 Units/L [facility] Comment:Code Blue Specimen ALT 23 7 - 45 Units/L [facility] Comment:Code Blue Specimen AST 32 10 - 45 Units/L [facility] Comment: Hemolyzed; result may be falsely elevated Code Blue Specimen Blood Venous blood specimen / Unknown 07/25/2024 1:45 PM CDT 07/25/2024 1:58 PM CDT Narrative [facility] - 07/25/2024 2:22 PM CDT Potential Stroke Patient Mitch Elizabeth MD LAB BLOOD ORDERABLES F inal Result [facility] [place] [address] * HEPATITIS C AB W/REFL TO HCV [...] file for you. Please contact a client relations associate if you would like additional testing done on this patient or contact your market sales manager to obtain a client custom reflex testing authorization request form. SIGNAL TO CUT-OFF 0.01 <1.00 [facility] [place] Blood specimen (specimen) 03/03/2018 10:07 AM CDT 03/03/2018 10:08 AM CDT Narrative Resulting Agency Comment Performing Organization Information: Site ID: [id number] Name: [facility] Address: [address] [address] Director: Kendall Marsh D.O., MPH Hunter Schwartz MD LAB BLOOD ORDERABLES Fin al Result [facility] [place] [facility] from Last 3 Months or Most Recently Relevant to Health Maintenance [place] [address] ANTH TRADITIONAL [employer] MEDICARE GOLD [facility] AETNA MEDICARE GOLD Advance Directives For more information, please contact: [phone] * Full Code (Latest Code Status on File) Date Activated Date Inactivated Comments 07/25/2024 6:39 PM 07/26/2024 10:29 PM * Full Code Date Activated Date Inactivated Comments 03/13/2018 2:33 PM 03/14/2018 10:36 PM 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
--- OUTSIDE RECORDS SUMMARY | 2024-10-03 09:39 | XMS_ITS | Encounter Summary ---
Author Organization [facility] Health Address [address] [place] [address] Care Team Providers Care Synthetic Soil Blocks Pulper Name Role Phone Dwayne Torres MD Primary Care Provider [phone] Encounter Details Date Type Department Care Team (Late st Contact Info) Description 11/22/[address] 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 Gender Identity Not on file Sexual Orientation Not on file documented as of this encounter Plan of Treatment Not on file documented as of this encounter Procedures Procedure Name Priority Date/Time Associated Diagnosis Comments DERMATOPATH TECHNICAL REPORT Routine 11/21/2017 12:00 AM CDT documented in this encounter Results * DERMATOPATH TECHNICAL REPORT (11/21/2017 12:00 AM CDT) Case Report Dermatopathology Report Case: [id number] Authorizing Provider: Kassandra Maurice MD Collected: 11/21/2017 12:00 AM Pathologist: Shanika Cameron MD Received: 11/22/2017 06:13 AM Specimen: Skin, right shoulder 11:33 AM CDT DERMATOPATHOLOGY LABORATORY Clinical History Bx proven BCC. Prior Biopsy [id number]. Check margins. 11:33 AM T DERMATOPATHOLOGY LABORATORY Gross Description Specimen A: Received is one formalin filled container labeled with the patient's name and designated right shoulder.The specimen consists of an ellipse measuring [id number] and is oriented with the notch at [...] and submitted in cassettes 3-4. Jar 0. [facility] Dermatopathology Laboratory performed the technical component only. 11:33 AM T DERMATOPATHOLOGY LABORATORY Embedded Images 11:33 AM [facility] DERMATOPATHOLOGY LABORATORY DISCLAIMER An external and internal positive and negative controls are appropriate for the histochemical, immunohistochemical and immunofluorescence stain(s) in this case (if any), except where stated explicitly. The performance characteristics of the stain(s) cited in this report were developed and its performance characteristic determined by the Dermatopathology Laboratory at [facility]. These tests need not be, and therefore are not, approved by the [place] Food and Drug Administration. The tests are used for clinical purposes. 11:33 AM [facility] DERMATOPATHOLOGY LABORATORY at 1133 CDT Pathology/Cytolog y TISSUE SPECIMEN FROM SKIN / Unknown 11/21/2017 11/22/2017 6:13 AM CDT us Kassandra Maurice MD LAB - PATHOLOGY/CYTOLOGY ORD ERABLES Final Result DERMATOPATHOLOGY LABORATORY [facility] - Department of Dermatology [address] [facility] [place] [address], [facility] [phone] documented in this encounter Visit Diagnoses Not on filedocumented in this encounter Care Teams Synthetic Soil Blocks Pulper Relationship Specialty Start Date End Date Dwayne Torres MD [address] [place] [phone] PCP - General 04/07/12 documented as of this encounter
--- OUTSIDE RECORDS SUMMARY | 2024-10-03 09:39 | XMS_ITS | Encounter Summary ---
Author Organization [facility] Address [address] [place] [address] Phone Care Team Providers Care Arterial Embalmer Name Role Phone Troy Dunn MD Primary Care Provider [phone] Hussain Torres MD Unavailable Reason for Visit * Reason Comments Medication Refill Encounter Details Date Type Department Care Team (Late st Contact Info) Description 01/09/2024 Refill [facility] [address] [place] [address] Troy Dunn MD [address] [address] Medication Refill Social History Tobacco Use Types Packs/Day Years Used Date Smoking Tobacco: Former Cigarettes 1 53.2 1 971 - 07/25/2023 Smokeless Tobacco: Never Comments:Quit for 18 years i n between Alcohol Use Standard Drinks/Week Comments Not Currently 0 (1 standard drink = 0.6 oz pur e alcohol) [facility] Utilities Answer Date Recorded In the past 12 months has [employer] electric, gas, oil, or water company threatened to shut off services in your home? No 04/28/2023 Social Connection and Isolation Panel [NHANES] A nswer Date Recorded In a typical week, how many times do you talk on the phone with family, friends, or neighbors? 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
--- OUTSIDE RECORDS SUMMARY | 2024-10-03 09:39 | XMS_ITS | Clinical Summary ---
Author Organization [facility] Address [address] [place] [address] Phone Care Team Providers Care Router Machine Operator Name Role Phone Troy Dunn MD Primary Care Provider [phone] Hussain Torres MD Unavailable Allergies No known [...] 07/20/2024 Refill [facility] [address] [place] [address] Troy Dunn MD Medication Refill from Last 3 Months Immunizations Immunization Administration Dates Next Due Covid-19, Mrna, Lnp-s, Pf, 3 0 Mcg/0.3 Ml Dose (Pfizer) 12/11/2020,11/20/2020 Influenza Vaccine less than 3 yrs 02/07/2024 Influenza Vaccine, Quadrivalent, PF 04/28/2023,1 ,03/14/2018 Influenza, Intradermal, Quad rivalent, Preservative Free 03/14/2018 Pneumococcal Vaccine Adult - 23 Valent 0 Pneumococcal conjugate PCV20 , polysaccharide [id number] conjugate, adjuvant, PF 04/28/2023 Family History Medical [...] drink = 0.6 oz pur e alcohol) [facility] Utilities Answer Date Recorded In the past [...] and Family Not on file 04/28/2023 Attends [employer] Services Not on file 04/28 Active Member [...] Total Score - Questions 1-9 0 08/01 [facility] Occupat ional Health - Occupational Stress [...] on file 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 Gender Identity Not on file Sexual Orientation [...] 3:19 PM CDT Height 157.5 cm (5' 2) 03/01/2024 3:19 PM CDT Body Mass Index 30.36 03/01/2024 3:19 PM CDT Plan of Treatment Health Maintenance [...] on patient's age to complete this topic Human Papillomavirus (HPV) Immunization Aged Out No longer eligible based [...] CDT) hepatitis C antibody 0.09 <1 S/CO [facility] [id number] 12/28/2022 9:07 PM CDT [facility] Comment: Signal/Cutoff ratio < 0.79 is Nondetected Signal/Cutoff ratio 0.80-0.99 is Grayzone Signal/Cutoff ratio > 0.99 is Detected Supplemental assays are recommended if signal/cutoff ratio is >/=1.00. Signal/cutoff ratio result >/= 5.00 is 97% predictive of positivity for recombinant immunoblot assay (RIBA) and will be reported to the [place] Department of Public Health as required. Blood Venipuncture / Unknown 12/28/2022 11:27 AM CDT 12/28/2022 11:27 AM CDT us Troy Dunn MD CHEMISTRY ORDERABLES Final Re sult [facility] [address] [place] [address], [place] from Last 3 Months or Most Recently Relevant to Health Maintenance Insurance [address] [place] [address] MEDICARE C [employer] Care Teams Router Machine Operator Relationship Specialty Start Date End Date Troy Dunn MD [address] [facility] [address] [place] [address] PCP - General Family Medicine 12/28/22 Hussain Torres MD [address] [facility] [address] [place] [address] Consulting Physician Colon and Rectal Surgery 04/12/23
--- OUTSIDE RECORDS SUMMARY | 2024-10-03 09:39 | XMS_ITS | Clinical Summary ---
Author Organization [facility] [address] [facility] Address [address] [place] [phone] Phone Care Team Providers Care Densitometer Reader Name Role Phone Allie Chong NP Primary Care Provider [phone] Allergies No known active allergies Medications ezetimibe [...] (coronary artery disease) 07/25/2024 [facility]oid [facility] with negative rheumatoid factor 03/17/2018 Overview [...] joint. Assessment & Plan (03/17/2018 4:57 PM ECOLOGICAL MODELER): This is based on pain and stiffness [...] 03/13/2018 Assessment & Plan (03/14/2018 4:46 PM ECOLOGICAL MODELER): History of hypertension - Continue home losartan, carvedilol Assessment & Plan (03/13/2018 11:41 PM ECOLOGICAL MODELER): History of hypertension - Continue home losartan, carvedilol Pyelonephritis 03/03/2018 Assessment & Plan (03/14/2018 4:46 PM ECOLOGICAL MODELER): Patient presents with stabbing back pain, CVA tenderness, UA with 21-[address] shows large stone in R kidney, bilateral hydronephrosis, fat stranding. Lactate negative. - Discharge with 14-day course of Bactrim 800-160 PO BID - Outpatient Urology followup for nephrolithiasis Assessment & Plan (03/13/2018 11:40 PM ECOLOGICAL MODELER): Patient presents with stabbing back pain, CVA [...] examination Assessment & Plan (03/14/2018 4:46 PM ECOLOGICAL MODELER): Patient has a history of polyarthralgia, affecting multiple joints. - Continue Duloxetine - PRN Tylenol - PRN Ibuprofen Assessment & Plan (03/13/2018 11:40 PM ECOLOGICAL MODELER): Patient has a history of polyarthralgia, affecting [...] Type Department Care Team Description 10/02/2024 Telephone [facility] [address] [facility] Medical Office Building [address] [place] [address] Gerardo Melissa MD 09/26/2024 8:45 AM CDT Ancillary Procedure [facility] [address] [facility] 8th [place] [address] [place] [address] Occlusion of right common carotid artery 09/26/2024 7:14 AM CDT - 09/26/2024 11:59 PM CDT Hospital Encounter [facility] Radiology [facility] ([facility] [address] [place] [address] Occlusion of right common carotid artery Discharge Disposition: Discharge to home or self care 08/24/2024 Telephone [facility] [address] [facility] Floor 1 [place] [address] Gerardo Melissa MD 08/24/2024 Orders Only [facility] [address] [facility] 8th [place] [address] [place] [address] Gerardo Melissa MD Occlusion of right common carotid artery (Primary Dx) 08/03/2024 [facility] Post Discharge Follow up phone call [facility] 1 [place] [address] Ning Saez RN 08/02/2024 Telephone [facility] [address] [facility] 8th [place] [address] [place] [address] Ana Waller 07/31/2024 1:00 PM CDT Office Visit [facility] Stroke [address] [facility] [address] [place] [address] Garfield Larsen NP Cerebrovascular accident (CVA), unspecified mechanism (HCC) (Primary Dx); Stroke-like episode; Syncope and collapse; Episode of shaking; At risk for obstructive sleep apnea; Insomnia, unspecified type; Hospital discharge follow-up 07/25/2024 1:53 PM CDT - 07/26/2024 6:24 PM CDT Hospital Encounter [facility] 1 [place] [address] Mitch Elizabeth MD Blustein, Erica C., MD [...] on file Legal Sex Female 12:36 AM ECOLOGICAL MODELER Gender Identity Not on file Sexual Orientation [...] 2006 Well Visit 65+ 2021 Covid-19 Vaccine (3 - 2023-2 5 season) 2024 12/11/2020, 11/20/2020 [...] NOW CLOPIDOGREL STAT 07/26/2024 11:10 AM CDT GREASE PRESS HELPER EVALUATE AND TREAT Routine 07/26/2024 9:39 AM CDT GREASE PRESS HELPER EVALUATE AND TREAT Routine 07/26/2024 9:39 AM [...] ECG 12-LEAD STAT 07/25/2024 2:10 PM CDT [facility] CRITICAL CARE ILL/INJURED PATIENT INIT 30-74 MIN [...] AM CDT Narrative 09/26/2024 12:35 PM CDT [facility] - Department of Vascular Surgery, Vascular Laboratory [address] [place] [address] Carotid Duplex Ultrasound Report Patient Name: ETEHL HOBSON : 1955 (69y ) Study Date: 09/26/2024 8:25:12 AM Gender: F Tech: IMAN Location: [facility] Ref Provider: GERARDO MELISSA Quality: Adequate Order [...] LT VERT PSV 90 cm/sec FINDINGS: Performing Client Strategist: Nimo Sifuentes RVT. Rt Common Carotid Artery: [...] Procedure Note Gerardo Melissa MD - 09/26/2024 [facility] - Department of Vascular Surgery,Vascular Laboratory [address] [place] [address] Carotid Duplex Ultrasound Report Patient Name: ETHEL HOBSON : 1955 (69y ) Study Date: 09/26/2024 8:25:12 AM Gender: F Tech: IMAN Location: [facility] Provider: GERARDO MELISSA Quality: Adequate Order Provider: [...] LT VERT PSV 90 cm/sec FINDINGS: Performing Client Strategist: Nimo Sifuentes RVT. Rt Common Carotid Artery: [...] the CTA were generated on a dedicated workstation/enlisted aircrew/aerial observer/gunner. Contrast information: 100 mL Optiray-350 IV COMPARISON: [...] the CTA were generated on a dedicated workstation/enlisted aircrew/aerial observer/gunner. Contrast information: 100 mL Optiray-350 IV COMPARISON: [...] it. Electronically signed by: Tai Fleming M.D. Gerardo Melissa MD IM CT PROCEDURES Final Resul t * TRANSTHORACIC ECHO (TTE) COMPLETE W DOPPLER/CF W CONTRAST (07/26/2024 4:54 PM CDT) Anatomical Region Laterality Modality Ultrasound 07/26/2024 3:41 PM CDT Narrative 07/26/2024 5:10 PM CDT [facility] Cardiac [place] [address] Transthoracic Echocardiographic Report Patient Name: ETHEL HOBSON M : 1955 (68y 10m) Gender: F Study Date: 07/26/2024 03:41:30 PM Ht(Inch): 62 Wt(Lb): 169.09 BSA: 1.83 Client Strategist: Ky Thompson [facility] Location: [id number] Order Provider: PHIL BURDICK Heart Rate: 62 [...] Procedure Note Ana Ortega MD - 07/26/2024 [facility] Cardiac [place] [address] Transthoracic Echocardiographic Report Patient Name: ETHEL HOBSON M : 1955 (68y 10m) Gender: F Study Date: 07/26/2024 03:41:30 PM Ht(Inch): 62 Wt(Lb): 169.09 BSA: 1.83 Client Strategist: Ky Thompson RD Location: [id number] Order Provider:PHIL BURDICK Heart Rate: 62 BMI: [...] LA Length 4C 4.94 cm MV Decel Rplw455.69 msec [ 104.00 - 258.00 ] LA [...] MD LAB BLOOD ORDERABLES Final Result [facility] Department [place] [address] * Lipoprotein a (LPa) (07/26/2024 11:10 AM CDT) [facility] Lipoprotein A 32 <75 nmol/L [facility] Comment: ADDITIONAL INFORMATION Please notice that Lp(a) values are reported in molar units (nmol/L). These units are recommended by professional society guidelines and expert opinion statements. Measured results and risk thresholds are higher than those generated using mass units (mg/dL). Cardiovascular risk increases starting at 75 nmol/L. Lp(a) >=125 nmol/L is considered a risk enhancing factor by the [place] [employer]. This test has been modified from the mammography tech's instructions. Its performance characteristics were determined by [facility] in a manner consistent with CLIA requirements. This test has not been cleared or approved by the U.S. Food and Drug Administration. Test Performed by: [address] [address] Tire Mold Tester: Christie Nichols Ph.D.; CLIA# [id number] Blood 07/26/2024 11:1 0 AM CDT 07/26/2024 11:59 AM CDT Phil Burdick MD LAB BLOOD ORDERABLES Final Result Performing Organization Address [facility] de Phone Number [facility] [place] [address] [place] * (ABNORMAL) Hemoglobin A1c (07/26/2024 11:10 AM CDT) Hgb A1C 5.8(H) 4.0 - 5.6 % Estimated Average Glucose 120 mg/dL [facility] Comment: The ADA recommends reporting an [...] BLOOD ORDERABLES Final Result Performing Organization Address [facility] de Phone Number [facility] [place] [address] * (ABNORMAL) Lipid panel (07/26/2024 11:10 AM [...] revised on 2017. Triglycerides 156(H) <=149 mg/dL [facility] Comment: Interpretive Data Ages < or [...] revised on 2017. HDL 47 >=40 mg/dL [facility] Comment: Interpretive Data Ages < or [...] on 2017. LDL, calculated 66 <=129 mg/dL [facility] Comment: Interpretive Data Ages < or = 19 years Acceptable: <110 mg/dL Borderline high: 110-129 mg/dL High: >or= 130 mg/dL Ages > or = 20 years Optimal: <100 mg/dL Near optimal: 100-129 mg/dL Borderline high: 130-159 mg/dL High: >160 mg/dL Calculated using the Nichols LDL-C estimating equation. This equation was implemented on 2023. Prior to this date LDL-C was estimated using the Friedewald equation. Literature References: 1. Expert Panel on Integrated Guidelines for Cardiovascular Health and Risk Reduction in Children and Adolescents. Pediatrics 2011;128:S213 2. NCEP Expert Panel. Circulation 2004;110:227 3. Simone M et al. LINCOLN Cardiol. 2020 August 30;5(5):540-548. doi: 10.1001/jamacardio.2020.0013 Current Interpretive Data was last revised on 2023. Non-HDL Cholesterol 93 mg/dL [facility] Comment: Interpretive Data Ages < or [...] last revised on 2017. Chol/HDL ratio 3 [facility] Blood 07/26/2024 11:1 0 AM CDT 07/26/2024 11:32 AM CDT us Phil Burdick MD LAB BLOOD ORDERABLES Final Result [facility] Department [place] [address] * GREASE PRESS HELPER Evaluation and Treatment (07/26/2024 9:39 AM CDT) Narrative Janneth Morin, GREASE PRESS HELPER - 07/26/2024 9:39 AM CDT Janneth Morin GREASE PRESS HELPER 07/26/2024 10:53 AM Speech-Language Pathology: Clinical Bedside [...] of speech/language/cognition completed after CSE; see additional GREASE PRESS HELPER note this date for assessment information. Assessment [...] MASA score consistent with clinical impression Plan GREASE PRESS HELPER Frequency of Services during current admission: One-time visit (Discharge from this service) GREASE PRESS HELPER Recommendation (Add'l Services): No further GREASE PRESS HELPER indicated Next Visit Plan:No further ST warranted Please reference care plan for treatment goals, if indicated. Discharge Summary Statement If this is the last swallow therapy visit, this serves as the discharge summary. us Phil Burdick MD GREASE PRESS HELPER ORDERABLES Final Resu lt * GREASE PRESS HELPER Evaluation and Treatment (07/26/2024 9:39 AM CDT) Narrative Janneth Morin SLP - 07/26/2024 9:39 AM CDT Janneth Morin SLP 07/26/2024 10:53 AM Speech-Language Pathology: Clinical Bedside [...] of speech/language/cognition completed after CSE; see additional GREASE PRESS HELPER note this date for assessment information. Assessment [...] MASA score consistent with clinical impression Plan GREASE PRESS HELPER Frequency of Services during current admission: One-time visit (Discharge from this service) GREASE PRESS HELPER Recommendation (Add'l Services): No further GREASE PRESS HELPER indicated Next Visit Plan:No further ST warranted Please reference care plan for treatment goals, if indicated. Discharge Summary Statement If this is the last swallow therapy visit, this serves as the discharge summary. us Mitch Elizabeth MD GREASE PRESS HELPER ORDERABLES Final Result * Urinalysis reflex to microscopic and culture Urine, clean voided (07/26/2024 6:09 AM CDT) Color, ur Straw Yellow Clarity, ur Clear Clear [facility] Specific gravity, ur 1.013 1.003 - 1.030 [facility] pH, urine 6.0 [facility] Comment: Interpretive Data U rine pH is affected by diet, medications, systemic acid-base disturbances, and renal tubular function. pH may affect urinary stone formation. For example, urine pH below 6.0 may help reduce the tendency for calcium phosphate stones and pH greater than 6.0 may reduce the tendency for uric acid stone formation. Source: [facility] Current Interpretive Data was last revised on 2017 Protein, ur ql Negative Negative [facility] Glucose, ur ql Negative Negative [facility] Ketones, ur Negative Negative [facility] Bilirubin, ur Negative Negative [facility] Blood, ur Negative Negative [facility] Urobilinogen, ur <2.0 <2.0 mg/dL [facility] Nitrite, ur Negative Negative [facility] Leukocyte esterase, ur Negative Negative [facility] UA reflex comment Reflex conditions for microscopic UA and culture not met. [facility] Urine, clean voided 07/26/2024 6:09 AM CDT 07/26/2024 6:54 AM CDT us Phil Burdick MD LAB MICROBIOLOGY - GENERAL ORDERABLES Final Result [facility] [place] [address] * Drugs of Abuse Screen, Urine without Confirmation (07/26/2024 6:09 AM CDT) [facility] Amphetamine, ur Not Detected CutOff 500ng/mL Comment: Interpretive Data - Amphetamines: Samples containing greater than 500 ng/mL d-methamphetamine or other cross-reacting amphetamine compounds are reported as positive. Amphetamine immunoassays are subject to significant false positive rates due to cross-reactivity of non-amphetamine drugs. Confirmatory testing required for definitive results. Current Interpretive Data was last reviewed 2022. Barbiturates, ur Not Detected CutOff 200ng/mL [facility] Comment: Interpretive Data - Barbiturates: Samples containing greater than 200 ng/mL secobarbital or other cross-reacting barbiturate compounds are reported as positive. False positive and false negative results are possible. Confirmatory testing required for definitive results. Current Interpretive Data was last reviewed 2022. Benzodiazepines, ur Not Detected CutOff 100ng/mL [facility] Comment: Interpretive Data - Benzodiazepines: Samples containing greater than 100 ng/mL nordiazepam or other cross-reacting compounds are reported as positive. False positive and false negative results are possible. Confirmatory testing required for definitive results. Current Interpretive Data was last reviewed 2022. Cannabinoids, ur Not Detected CutOff 50 ng/mL [facility] Comment: Interpretive Data - Cannabinoids: Samples containing greater than 50 ng/mL delta-9 THC -COOH or other cross- reacting compounds are reported as positive. False positive and false negative results are possible. Confirmatory testing required for definitive results. Current Interpretive Data was last reviewed 2022. Cocaine, ur Not Detected CutOff 150ng/mL [facility] Comment: Interpretive Data - Cocaine: Samples containing greater than 150 ng/mL benzoylecgonine or other cross- reacting compounds are reported as positive. False positive and false negative results are possible. Confirmatory testing required for definitive results. Current Interpretive Data was last reviewed 2022. Fentanyl, Ur Not Detected CutOff 5 ng/mL [facility] Comment: Interpretive Data - Fentanyl: Samples containing greater than 5 ng/mL norfentanyl, fentanyl, or other cross-reacting fentanyl compounds are reported as positive. False positive and false negative results are possible. Confirmatory testing required for definitive results. Current Interpretive Data was last reviewed 2023. Methadone, ur Not Detected CutOff 300ng/mL [facility] Comment: Interpretive Data - Methadone: Samples containing greater than 300 ng/mL d,l-methadone or other cross-reacting compounds are reported as positive. False positive and false negative results are possible. Confirmatory testing required for definitive results. Current Interpretive Data was last reviewed 2022. Opiates, ur Not Detected CutOff 300ng/mL [facility] Comment: Interpretive Data - Opiates: Samples containing greater than 300 ng/mL morphine or other cross-reacting compounds are reported as positive. False positive and false negative results are possible. Confirmatory testing required for definitive results. Current Interpretive Data was last reviewed 2022. Oxycodone, ur Not Detected CutOff 100ng/mL [facility] Comment: Interpretive Data - Oxycodone: Samples containing greater than 100 ng/mL oxycodone or other cross-reacting compounds are reported as positive. False positive and false negative results are possible. Confirmatory testing required for definitive results. Current Interpretive Data was last reviewed 2022. Phencyclidine, ur Not Detected CutOff 25 ng/mL [facility] Comment: Interpretive Data - Phencyclidine: Samples containing greater than 25 ng/mL phencyclidine or other cross-reacting compounds are reported as positive. False positive and false negative results are possible. Confirmatory testing required for definitive results. Current Interpretive Data was last reviewed 2022. Urine Creatinine 45 mg/dL [facility] Comment: Interpretive Data Urine Creatinine: < 10 mg/dL is extremely dilute = or > 10 but < 20 mg/dL is dilute = or > 20 mg/dL is normal Current Interpretive Data was last revised on 2017. Urine 07/26/2024 6:09 AM CDT 07/26/2024 6:54 AM CDT Narrative [facility] - 07/26/2024 7:31 AM CDT Drug of Abuse screening is performed by immunoassay for medical purposes only. This is not to be used for Pain Management purposes. us Phil Burdick MD LAB URINE ORDERABLES Final Result [facility] [place] [address] * eGFR (07/25/2024 8:52 PM CDT) [facility] eGFR 77 >=60 mL/min/1. 73 m2 Comment: [...] Burdick MD LAB BLOOD ORDERABLES Final Result [facility] [place] [address] * CBC without differential (07/25/2024 8:52 PM CDT) [facility] WBC 8.1 3.8 - 9.9 K/cumm Hgb 12.4 11.9 - 15.5 g/dL [facility] Hct 37.0 35.6 - 45.5 % [facility] Plt 247 150 - 400 K/cumm [facility] MPV 10.7 9.1 - 12.3 fL [facility] RBC 4.11 3.90 - 5.20 M/cumm [facility] MCV 90.0 81.3 - 96.4 fL [facility] MCH 30.2 27.1 - 33.3 pg [facility] MCHC 33.5 32.3 - 35.7 g/dL [facility] RDW CV 12.4 11.1 - 14.9 % [facility] RDW SD 40.1 35.7 - 48.1 fL [facility] NRBC abs 0.00 0.00 - 0.01 K/cumm [facility] Blood 07/25/2024 8:52 PM CDT 07/25/2024 9:54 PM CDT Phil Burdick MD LAB BLOOD ORDERABLES Final Result Performing Organization Address [facility] Co de Phone Number [facility] [place] [address] * Phosphorus (07/25/2024 8:52 PM CDT) Phosphorus, pl 3.8 2.3 - 4.5 mg/dL Blood 07/25/2024 8:52 PM CDT 07/25/2024 9:54 PM CDT Phil Burdick MD LAB BLOOD ORDERABLES Final Result Performing Organization Address [facility] Co de Phone Number [facility] Department [place] [address] * Magnesium (07/25/2024 8:52 PM CDT) Magnesium 2.1 1.4 - 2.5 mg/dL Blood 07/25/2024 8:52 PM CDT 07/25/2024 9:54 PM CDT Phil Burdick MD LAB BLOOD ORDERABLES Final Result Performing Organization Address [facility] Co de Phone Number [facility] [place] [address] * Basic metabolic panel (07/25/2024 8:52 PM CDT) Sodium 142 135 - 145 mmol/L Potassium, pl 4.3 3.3 - 4.9 mmol/L [facility] Chloride 103 97 - 110 mmol/L [facility] CO2 28 22 - 32 mmol/L [facility] Anion gap 11 2 - 15 mmol/L [facility] BUN 17 6 - 25 mg/dL [facility] Creatinine 0.83 0.60 - 1.10 mg/dL [facility] Glucose 87 70 - 199 mg/dL [facility] Comment: Interpretive Data Fasting glucose >/= [...] 2022. Calcium 9.4 8.5 - 10.3 mg/dL [facility] Blood 07/25/2024 8:52 PM CDT 07/25/2024 9:54 PM CDT us Phil Burdick MD LAB BLOOD ORDERABLES Final Result [facility] [place] [address] * VerifyNow clopidogrel (07/25/2024 3:44 PM CDT) [...] ORDERABLES Suni l Result Performing Organization Address [facility] de Phone Number [facility] Department [place] [address] * Troponin I high-sensitivity 2-hour (07/25/2024 3:23 PM CDT) Trop I hs <4 <=17 ng/L Comment: Interpretive Data For further hscTnI resources including the diagnostic algorithm and an aid in interpretation, copy and paste this link: https://bjhlab.testcatalog.org/show/hsTrop-1 Current Interpretive Data last revised 2019. Trop I hs delta 0 ng/L [facility] Trop I hs interp Insignificant [facility] Blood 07/25/2024 3:23 PM CDT 07/25/2024 3:32 PM CDT us Willian Irvin MD LAB BLOOD ORDERABLES Final R esult Performing Organization Address [facility] Co de Phone Number [facility] Department [place] [address] * MRA Head and Carotids W WO [...] 2. Magnetic resonance angiography (MRA) of the qqlspd-ta-Mkdvzk without and with contrast 3. Magnetic resonance angiography (MRA) of the neck without and with contrast HISTORY: 68-year-old female with concern for acute infarct. left arm numbness and facial droop, NIHSS 4 TECHNIQUE: Multiplanar multi-weighted MRI of the brain and brainstem was performed without intravenous contrast using the hyperacute stroke protocol. Magnetic resonance angiography of the vlojec-kp-Hmfupr was performed using a separate data acquisition with a non-contrast tkkt-ju-oqiqza technique and a post-contrast technique to produce axial thin-slice source images. These images were then used to generate maximum intensity projection (MIP) images. Magnetic resonance angiography of the neck was performed using a separate data acquisition with a non-contrast djtg-vb-cedgjy technique and a post-contrast technique to produce [...] angiogram. MRA HEAD: Decreased signal on the irky-ad-bziutk sequence in the intracranial right internal carotid [...] 2. Magnetic resonance angiography (MRA) of the fhjset-ph-Tekskb without and with contrast 3. Magnetic resonance angiography (MRA) of the neck without and with contrast HISTORY: 68-year-old female with concern for acute infarct. left arm numbness and facial droop, NIHSS 4 TECHNIQUE: Multiplanar multi-weighted MRI of the brain and brainstem was performed without intravenous contrast using the hyperacute stroke protocol. Magnetic resonance angiography of the vzxpcu-gu-Nhvnbv was performed using a separate data acquisition with a non-contrast whxj-ji-szuqui technique and a post-contrast technique to produce axial thin-slice source images. These images were then used to generate maximum intensity projection (MIP) images. Magnetic resonance angiography of the neck was performed using a separate data acquisition with a non-contrast afof-tc-ckosic technique and a post-contrast technique to produce [...] angiogram. MRA HEAD: Decreased signal on the ynca-mc-moaqbw sequence in the intracranial right internal carotid [...] 2. Magnetic resonance angiography (MRA) of the udywub-ti-Uokuvb without and with contrast 3. Magnetic resonance angiography (MRA) of the neck without and with contrast HISTORY: 68-year-old female with concern for acute infarct. left arm numbness and facial droop, NIHSS 4 TECHNIQUE: Multiplanar multi-weighted MRI of the brain and brainstem was performed without intravenous contrast using the hyperacute stroke protocol. Magnetic resonance angiography of the dauyle-eb-Rrghuu was performed using a separate data acquisition with a non-contrast mqsc-yh-exampe technique and a post-contrast technique to produce axial thin-slice source images. These images were then used to generate maximum intensity projection (MIP) images. Magnetic resonance angiography of the neck was performed using a separate data acquisition with a non-contrast rhgg-fd-fkftgw technique and a post-contrast technique to produce [...] angiogram. MRA HEAD: Decreased signal on the rumv-ga-ttykgi sequence in the intracranial right internal carotid [...] 2. Magnetic resonance angiography (MRA) of the zodomg-gf-Wretpj without and with contrast 3. Magnetic resonance angiography (MRA) of the neck without and with contrast HISTORY: 68-year-old female with concern for acute infarct. left arm numbness and facial droop, NIHSS 4 TECHNIQUE: Multiplanar multi-weighted MRI of the brain and brainstem was performed without intravenous contrast using the hyperacute stroke protocol. Magnetic resonance angiography of the hblujn-zu-Ebfyhq was performed using a separate data acquisition with a non-contrast vxok-ko-lgsvvl technique and a post-contrast technique to produce axial thin-slice source images. These images were then used to generate maximum intensity projection (MIP) images. Magnetic resonance angiography of the neck was performed using a separate data acquisition with a non-contrast gdjz-hl-cgjwap technique and a post-contrast technique to produce [...] angiogram. MRA HEAD: Decreased signal on the nbhm-lt-mgmjns sequence in the intracranial right internal carotid [...] ORDERABLES Final Result MUSE [facility] * [facility] CRITICAL CARE ILL/INJURED PATIENT INIT 30-74 MIN [...] us Mitch Elizabeth MD IN CLINIC/BEDSIDE LANI PIERRE Final Result * CT Stroke Head WO [...] time, whole blood (07/25/2024 1:48 PM CDT) [facility] PT, POC 11.7 10.6 - 13.5 sec INR, bld, POC 1.0 0.9 - 1.2 [facility] Blood 07/25/2024 1:48 PM CDT 07/25/2024 1:48 PM CDT Mitch Elizabeth MD LAB POCT ORDERABLES - DEVICE Final Result Performing Organization Address [facility]/ZIP Co de Phone Number [place] [address] * POCT glucose (07/25/2024 1:47 PM CDT) [facility] Glucose, POC 102 70 - 199 mg/dL Blood 07/25/2024 1:47 PM CDT 07/25/2024 1:47 PM CDT Notinfile Unknown LAB POCT ORDERABLES - DEVICE F inal Result Performing Organization Address City/[facility]/ZIP Co de Phone Number [facility] [place] [address] * Troponin I high-sensitivity series (baseline, 2hr, 4hr, 6hr) (07/25/2024 1:45 PM CDT) [facility] Trop I hs 4 <=17 ng/L Comment: Code Blue Specimen Interpretive Data For further hscTnI resources including the diagnostic algorithm and an aid in interpretation, copy and paste this link: https://bjhlab.testcatalog.org/show/[email or web address] Current Interpretive Data last revised 2019. Blood 07/25/2024 1:45 PM CDT 07/25/2024 1:58 PM CDT us Mitch Elizabeth MD LAB BLOOD ORDERABLES F inal Result Performing Organization Address [facility]/ZIP Co de Phone Number [facility] [place] [address] * eGFR (07/25/2024 1:45 PM CDT) eGFR [...] ORDERABLES Final R esult Performing Organization Address City/[facility]/ZIP Co de Phone [facility] [place] [address] * Differential, auto (07/25/2024 1:45 PM CDT) Neutrophil abs 4.2 1.5 - 6.5 K/cumm Imm gran abs 0.0 0.0 - 0.1 K/cumm [facility] Lymphocyte abs 2.3 0.8 - 3.3 K/cumm [facility] Monocyte abs 0.7 0.2 - 0.8 K/cumm [facility] Eosinophil abs 0.2 0.0 - 0.5 K/cumm [facility] Basophil abs 0.1 0.0 - 0.1 K/cumm [facility] Neutrophil pct 55.7 % [facility] Comment: Interpretive Data Percent cell count reference ranges are not reported, since discordance with absolute values may lead to misinterpretation of CBC data. Current Interpretive Data was last revised on 2017. Imm gran pct 0.4 % [facility] Comment: Interpretive Data Percent cell count reference ranges are not reported, since discordance with absolute values may lead to misinterpretation of CBC data. Current Interpretive Data was last revised on 2017. Lymphocyte pct 30.9 % [facility] Comment: Interpretive Data Percent cell count reference ranges are not reported, since discordance with absolute values may lead to misinterpretation of CBC data. Current Interpretive Data was last revised on 2017. Monocyte pct 9.3 % [facility] Comment: Interpretive Data Percent cell count reference ranges are not reported, since discordance with absolute values may lead to misinterpretation of CBC data. Current Interpretive Data was last revised on 2017. Eosinophil pct 2.8 % [facility] Comment: Interpretive Data Percent cell count reference ranges are not reported, since discordance with absolute values may lead to misinterpretation of CBC data. Current Interpretive Data was last revised on 2017. Basophil pct 0.9 % [facility] Comment: Interpretive Data Percent cell count reference ranges are not reported, since discordance with absolute values may lead to misinterpretation of CBC data. Current Interpretive Data was last revised on 2017. Blood 07/25/2024 1:45 PM CDT 07/25/2024 1:58 PM CDT us Willian Irvin MD LAB BLOOD ORDERABLES Final R esult [facility] [place] [address] * CBC with auto differential (07/25/2024 1:45 PM CDT) Pathologist [facility] WBC 7.5 3.8 - 9.9 K/cumm Comment:Code Blue Specimen Hgb 12.9 11.9 - 15.5 g/dL [facility] Hct 38.8 35.6 - 45.5 % [facility] Plt 277 150 - 400 K/cumm [facility] MPV 10.4 9.1 - 12.3 fL [facility] RBC 4.29 3.90 - 5.20 M/cumm [facility] MCV 90.4 81.3 - 96.4 fL [facility] MCH 30.1 27.1 - 33.3 pg [facility] MCHC 33.2 32.3 - 35.7 g/dL [facility] RDW CV 12.7 11.1 - 14.9 % [facility] RDW SD 41.4 35.7 - 48.1 fL [facility] NRBC abs 0.00 0.00 - 0.01 K/cumm [facility] Blood Venous blood specimen / Unknown 07/25/2024 1:45 PM CDT 07/25/2024 1:58 PM CDT Narrative [facility] - 07/25/2024 2:02 PM CDT Potential Stroke Patient us Mitch Elizabeth MD LAB BLOOD ORDERABLES F inal Result [facility] [place] [address] * aPTT (07/25/2024 1:45 PM CDT) Pathologist [facility] aPTT 35 28 - 38 sec Comment: Code Blue Specimen Interpretive Data Heparin therapeutic range: 66.0 - 100.0 seconds. Range based on correlation with therapeutic heparin activity range of 0.3 - 0.7 Units/mL. Current interpretive data was last revised on 2023. Blood Venous blood specimen / Unknown 07/25/2024 1:45 PM CDT 07/25/2024 1:58 PM CDT Narrative [facility] - 07/25/2024 2:09 PM CDT Potential stroke patient. us Mitch Elizabeth MD LAB BLOOD ORDERABLES F inal Result [facility] [place] [address] * (ABNORMAL) Comprehensive metabolic panel (07/25/2024 1:45 PM CDT) Sodium 141 135 - 145 mmol/L Comment:Code Blue Specimen Potassium, pl 5.4(H) 3.3 - 4.9 mmol/L [facility] Comment: Hemolyzed; Potassium value may be falsely elevated by as much as 0.6-1.0 mmol/L. Suggest redraw and reanalysis. Code Blue Specimen Chloride 106 97 - 110 mmol/L [facility] Comment:Code Blue Specimen CO2 27 22 - 32 mmol/L [facility] Comment:Code Blue Specimen Anion gap 8 2 - 15 mmol/L [facility] Comment:Code Blue Specimen BUN 18 6 - 25 mg/dL [facility] Comment:Code Blue Specimen Creatinine 0.82 0.60 - 1.10 mg/dL [facility] Comment:Code Blue Specimen Glucose 105 70 - 199 mg/dL [facility] Comment: Code Blue Specimen Interpretive Data [...] classification and Diagnosis of Diabetes Diabetes Care 2022; 46: S19-S40. Current interpretive data was last revised 2022. Calcium 9.4 8.5 - 10.3 mg/dL [facility] Comment:Code Blue Specimen Bilirubin, total 0.5 0.1 - 1.2 mg/dL [facility] Comment:Code Blue Specimen Protein, pl 7.3 6.5 - 8.5 g/dL [facility] Comment:Code Blue Specimen Albumin 4.0 3.5 - 5.0 g/dL [facility] Comment:Code Blue Specimen Alk phos 92 40 - 130 Units/L [facility] Comment:Code Blue Specimen ALT 23 7 - 45 Units/L [facility] Comment:Code Blue Specimen AST 32 10 - 45 Units/L [facility] Comment: Hemolyzed; result may be falsely elevated Code Blue Specimen Blood Venous blood specimen / Unknown 07/25/2024 1:45 PM CDT 07/25/2024 1:58 PM CDT Narrative [facility] - 07/25/2024 2:22 PM CDT Potential Stroke Patient us Mitch Elizabeth MD LAB BLOOD ORDERABLES F inal Result [facility] [place] [address] * HEPATITIS C AB W/REFL TO HCV [...] file for you. Please contact a client partner if you would like additional testing done on this patient or contact your route sales driver to obtain a client custom reflex testing authorization request form. SIGNAL TO CUT-OFF 0.01 <1.00 [facility] [place] Blood specimen (specimen) 03/03/2018 10:07 AM CDT 03/03/2018 10:08 AM CDT Narrative Resulting Agency Comment Performing Organization Information: Site ID: [place] Name: [facility] Address: [address] [place] [id number] Director: Kendall Marsh D.O., MPH Hunter Schwartz MD LAB BLOOD ORDERABLES Fin al Result [facility] [place] from Last 3 Months or Most Recently Relevant to Health Maintenance Insurance [address] [place] [address] [facility] [place] [address] [employer] MED[employer]ARE GOLD ANTHEM ACCESS [employer] MED[employer]ARE GOLD Advance Directives For more information, please contact: [phone] * Full Code (Latest Code Status on File) Date Activated Date Inactivated Comments 07/25/2024 6:39 PM 07/26/2024 10:29 PM * Full Code Date Activated Date Inactivated Comments 03/13/2018 2:33 PM 03/14/2018 10:36 PM Care Teams Densitometer Reader Relationship Specialty Start Date End Date Allie Chong NP [address] [place] [id number] PCP - General Nurse Practitioner 07/26/24
--- OUTSIDE RECORDS SUMMARY | 2024-10-03 09:39 | XMS_ITS | Data Portability ---
Author Organization [employer] [place], Main Office Address [address] [place] [address] Assessment No assessment recorded. Plan of Treatment Reminders Order Date Submit Date Provider Last Modified By Organization Details Last Modified Time Details Appointments None recorded. Lab CMP, serum or plasma 2022 023 harvey [employer] [facility], [address], [place], [address], 3 10:16:23 CBC w/ auto diff 2022 023 harvey [employer] [facility], [address], [place], [address], 3 10:16:23 TSH, serum or plasma 2022 023 [facility], [address], [place], [address], 3 10:16:23 T4, free, serum 2022 023 [facility], [address], [place], [address], 3 10:16:23 Referral gynecologis t referral 2022 023 harvey Osman MD, [facility] [address], [place], [address], 3 14:19:29 cardiologis t referral 2022 023 ABBY Muñiz MD, [address] , [address], [place], [address], 3 17:31:24 Procedures colonoscopy screening (PROC) 2022 023 [email or web address] Dutch Bravo MD, [address], [facility] [address], [place], [address], 3 10:17:10 Surgeries None recorded. Imaging None recorded. Medication Orders None recorded. Patient TargetsNo targets recorded. Patient InstructionsNo instructions recorded. Reason for Referral Dope Pourer Referral for Co ronary arteriosclerosis Referring Physician: Samy Spencer, Internal Medicine, Encounter Date: 07/15/2022 Senior Wind Energy Consultant Referral for Gy necologic examination Referring Physician: Samy Spencer, Internal Medicine, Encounter Date: 07/15/2022 Results Created Date Observation Date Name Description Value Unit Range Abnormal Flag Note LastModifiedBy Organization Detail LastModifiedTime 01/09/20 22 01/08/2022 MAMMO , scree nakita, digit al, bilat eral No observ ation record ed. [id number] [facility] On Lab Orders [address] [place], [address], 07/01/2022 01:33:59 01/09/20 22 01/08/2022 screcatarina mace breas t preet, bilat [facility] [address] [facility] [place] [address] Patien t Name: ETHEL AVILA Access ion #: [id number] Sex: F : 1955 0 Locati [...] 2 [facility] Name: ETHEL AVILA Access ion #: [id number] Sex: F : 1955 0 Exam [...] MD (CT) (CT) Page 2 of [id number] [facility] (Imaging) [address] [place], [address], 07/01/2022 01:33:59 01/09/20 22 01/08/2022 DEXA, axial skele ton No observ ation record ed. [id number] [facility] (One Call Scheduling) [address] [place], [address], 07/01/2022 01:33:59 01/09/20 22 01/08/2022 DEXA, axial skele ton [facility] [address] [facility] [place] [address] [phone] Patien t Name: ETHEL AVILA Access ion #: [id number] Sex: F : 1955 0 Locati [...] e of -1.0. Page 1 of 2 [facility] t Name: ETHEL AVILA Access ion #: [id number] Sex: F : 1955 0 Exam [...] MD (CT) (CT) Page 2 of [id number] [facility] (Imaging) [address] [place], [address], 07/01/2022 01:33:59 04/09/20 22 04/09/2022 US, thyro id No observ ation record ed. [id number] [facility] Add On Lab Orders [address] [place], [address], 07/01/2022 01:33:59 04/09/20 22 04/09/2022 MAMMO , diagn ostic , digit al, unila teral , w/ CAD [facility] [address] [place] [address] [phone] Patien t Name: ETHEL AVILA Access ion #: [id number] Sex: F : 1955 1 Locati [...] here. IMPRES ALAINA: Page 1 of 2 [facility] Jimmy wyatt Name: ETHEL AVILA Access ion #: [id number] Sex: F : 1955 1 Exam [...] [facility] ly [facility]. A negati ve mammog diamond report [...] 10:53 AM (CT) Page 2 of [id number] [facility] (Imaging) [address] [facility], [place], [address], 07/01/2022 01:33:59 04/09/20 22 04/09/2022 US, head + neck, soft tissu e [facility] [address] [facility], [place] [address] Patien t Name: ETHEL AVILA Access ion #: [id number] Sex: F : 1955 1 Locati [...] t. There are Page 1 of 2 [facility] Patien t Name: ETHEL AVILA Access ion #: [id number] Sex: F : 1955 1 Exam [...] 3:00 PM (CT) Page 2 of [id number] [facility] (Imaging) [address] [place], [address], 07/01/2022 01:33:59 09/03/1909/02/2022 US, echoc ardio gram No observ ation record ed. roshan [facility] [address], [place], [address], 09/09/2022 13:16:35 09/03/1909/02/2022 US, suzi demarco id arter y No observ ation record ed. roshan [facility] [address], [place], [address], 09/09/2022 13:16:36 11/21/19 24 11/21/2023 imagi ng/di agnos tic resul t No observ ation record ed. [facility] [address], [place], [address], 11/21/2023 13:46:36 11/21/19 24 11/21/2023 imagi ng/di agnos tic resul t No observ ation record ed. [facility] [address], [place], [address], 11/21/2023 14:04:28 Result Notes None recorded. Problems Name Problem SNOMED Code Status Onset Date Resolution Date Notes Provider Name and Address Organization Details Recorded Time Mammography abnormal 186197063 Active 2021 Not Available [facility] 3 10:34:50 Hypothyroidis m 51621230 Active 2021 Not Available [facility] 3 10:34:50 Essential hypertension 29885246 Active 2022 Not Available [facility] 3 10:34:50 Hyperlipidemi a 58603643 Active 2022 Not Available [facility] 3 10:34:50 Chronic pain 68737012 Active 2022 Not Available [facility] 3 10:34:50 Coronary arteriosclero sis 29836594 Active 2022 Not Available [facility] 3 10:34:50 Moderate recurrent major depression 87859867 Active 2022 Not Available [facility] 3 10:34:50 Skin lesion 05156761 Active 2022 Not Available [facility] 3 10:34:50 Problem Notes None recorded. Procedures Surgical History Date Name Laterality Status Provider Name and Address Organization Details Recorded Time 03/17/20 22 excision of malignant neoplasm completed Not Available [facility] 07/01/2022 01:32:30 Appendectomy completed Not Available [facility] 07/01/2022 01:32:30 Cholecystectomy completed Not Available [facility] 07/01/2022 01:32:30 open heart surgery completed Not Available [facility] 07/01/2022 01:32:30 Carotid Endarterectomy completed Not Available [facility] 07/01/2022 01:32:30 Kidney completed Not Available [facility] 07/01/2022 01:32:30 section completed Not Available [facility] 07/01/2022 01:32:30 Imaging Results None recorded. Procedure Notes None recorded. Medical Equipment None [...] Not Avai lable Vitals Date Recorded Body height Body mass index (BMI) Body weight Body temperature Heart rate Systolic blood pressure Diastolic blood pressure Provider Name and Address Organization Details Last Updated DateTime 3 157.48 cm 30.5 kg/m2 94430.9 3 g 97.6 [degF] 72 /min 130 mm[Hg] 60 mm[Hg] [address] [place] [facility] 3 11:53:28 Date Recorded Body mass index (BMI) Body height Heart rate Body temperature Body weight Systolic blood pressure Diastolic blood pressure Provider Name and Address Organization Details Last Updated DateTime 2 28.9 kg/m2 157.48 cm 72 /min 97.7 [degF] 43394.5 9 g 126 mm[Hg] 62 mm[Hg] Not Available [facility] 3 01:32:43 Date Recorded Body mass index (BMI) Body height Heart rate Body temperature Body weight Systolic blood pressure Diastolic blood pressure Provider Name and Address Organization Details Last Updated DateTime 2 29.6 kg/m2 157.48 cm 78 /min 97.6 [degF] 41572.9 6 g 126 mm[Hg] 60 mm[Hg] Not Available [facility] 3 01:32:43 Social History Question Answer Notes LastModified by Organization Details LastModified Time Tobacco Smoking Status Current Every Day Smoker Not Available [facility] 07/01/2022 01:32:03 Do You Have An Advance Directive? No MIGRATION.030 698222 Information not available 07/01/2022 Do You Wear A Helmet When Biking? Yes MIGRATION.[id number] Information not available 07/01/2022 Are You Blind Or Do You Have Difficulty Seeing? No MIGRATION.030 376296 Information not available 07/01/2022 What Is Your Level Of Caffeine Consumption? Moderate MIGRATION.030 925470 Information not available 07/01/2022 In The 14 Days Before Symptom Onset, Have You Had Close Contact With A Laboratory-conf irmed COVID-19 While That Case Was Ill? No MIGRATION.030 163495 Information not available 07/01/2022 In The 14 Days Before Symptom Onset, Have You Had Close Contact With A Person Who Is Under Investigation For COVID-19 While That Person Was Ill? No MIGRATION.030 243783 Information not available 07/01/2022 Are You Deaf Or Do You Have Serious Difficulty Hearing? No MIGRATION.0301 582450 Information not available 07/01/2022 What Type Of Diet Are You Following? REGULAR MIGRATION.0301 151478 Information not available 07/01/2022 What Is The Highest Grade Or Level Of School You Have Completed Or The Highest Degree You Have Received? [id number] MIGRATION.030 858389 Information not available 07/01/2022 Have There Been Any Changes To Your Family Or Social Situation? No MIGRATION.0301 464332 Information not available 07/01/2022 What Is The Fluoride Status Of Your Home? Unknown MIGRATION.0301 836889 Information not available 07/01/2022 Are There Any Guns Present In Your Home? Yes MIGRATION.0301 108088 Information not available 07/01/2022 Do You Use Insect Repellent Routinely? No MIGRATION.0301 855390 Information not available 07/01/2022 Where Do You Live? SingleLevelHouse MIGRATION.0301 045411 Information not available 07/01/2022 Do You Have A Medical Power Of Snuff Packing Machine Operator? No MIGRATION.0301 594875 Information not available 07/01/2022 What Was The Date Of Your Most Recent Tobacco Screening? 07/15/2022 Information not available 07/15/2022 Have You Ever Been Counseled For Unhealthy Alcohol Use? No MIGRATION.0301 257911 Information not available 07/01/2022 Do You Have Any Pets? No MIGRATION.0301 069604 Information not available 07/01/2022 What Is Your Relationship Status? MIGRATION.0301 523649 Information not available 07/01/2022 Do You Use Your Seat Belt Or Car Seat Routinely? Yes MIGRATION.0301 365979 Information not available 07/01/2022 Do You Have Smoke And Carbon Monoxide Detectors In Your Home? Yes MIGRATION.0301 636384 Information not available 07/01/2022 At What Age Did You Start Smoking Tobacco? 60 MIGRATION.0301 820179 Information not available 07/01/2022 Are You Passively Exposed To Smoke? Yes MIGRATION.0301 545409 Information not available 07/01/2022 Are There Any Smokers In Your House? Yes MIGRATION.0301 010768 Information not available 07/01/2022 How Much Tobacco Do You Smoke? 1 PPD Increased From /2ppd Information not available 07/15/2022 What Types Of Sporting Activities Do You Participate In? None MIGRATION.0301 578245 Information not available 07/01/2022 Do You Use Sunscreen Routinely? Yes MIGRATION.0301 281376 Information not available 07/01/2022 Have You Recently Traveled Abroad? No MIGRATION.0301 053290 Information not available 07/01/2022 Do You Have Difficulty Walking Or Climbing Stairs? No MIGRATION.0301 931306 Information not available 07/01/2022 Do You Have Any Dietary Restrictions? No MIGRATION.0301 542917 Information not available 07/01/2022 Sex: Female Functional Status Question Answer Note LastModified by [employer] Details LastModified Time Do you use any illicit or recreational drugs? No MIGRATION.8340135 026 Information not available 07/01/2022 Do you or have you ever used any other forms of tobacco or nicotine? No MIGRATION.0130200 026 Information not available 07/01/2022 What is your level of alcohol consumption? Occasional MIGRATION.8287240 026 Information not available 07/01/2022 Do you have transportation difficulties? No MIGRATION.3196417 026 Information not available 07/01/2022 Are you able to walk? YESWOREST MIGRATION.1380057 026 Information not available 07/01/2022 Do you have difficulty doing errands alone? No MIGRATION.8036174 026 Information not available 07/01/2022 Are you able to care for yourself? Yes MIGRATION.3844848 026 Information not available 07/01/2022 What is your occupation? [employer] MIGRATION.3733390 026 Information not available 07/01/2022 Do you have difficulty dressing or bathing? No MIGRATION.0292977 026 Information not available 07/01/2022 What is your exercise level? Occasional MIGRATION.5603560 026 Information not available 07/01/2022 Mental Status Question Answer Note LastModified by [employer] Details LastModified Time Do you feel stressed (tense, restless, nervous, or anxious, or unable to sleep at night)? [id number] MIGRATION.24209926 26 Information not available 07/01/2022 Do you have difficulty concentrating, remembering or making decisions? No MIGRATION.39517920 26 Information not available 07/01/2022 Family History Relationship Description Onset Age of this Age Resolved Age Notes LastModified by Organization Details LastModified Time Mother Heart disease MIGRATION.337 [id number] Not available 07/01/2022 01:32:31 Brother Heart disease MIGRATION.406 2483519 Not available 07/01/2022 01:32:31 Brother Mesothelioma (malignant, clinical disorder) MIGRATION.363 0727035 Not available 07/01/2022 01:32:31 Sister Heart disease 2 sister s MIGRATION.768 3449341 Not available 07/01/2022 01:32:31 Sister Diabetes mellitus MIGRATION.021 5380159 Not available 07/01/2022 01:32:31 Maternal Grandmother Diabetes mellitus MIGRATION.466 3958683 Not available 07/01/2022 01:32:31 Paternal Grandmother Diabetes mellitus MIGRATION.262 3382491 Not available 07/01/2022 01:32:31 Medical History Condition Response NERVE DISEASE N BLINDNESS N RHEUMATIC FEVER N KIDNEY STONES N BLADDER PROBLEMS N MRSA N OTHER # 1 N POLIO N LUNG DISEASE/DISORDER N HISTORY OF DRUG ABUSE N COPD N RADIATION / CHEMOTHERAPY N Other # 2 N BLOOD DISEASES [...] SNOMED-CT Code Diagnosis ICD10 Code Diagnosis Note [id number] Samy de león MD [facility] Internal Med [facility] [address] [place] [address] 1 12/01/2021 00:00:00 12/01/2021 12:51:14 [id number] Samy de león MD [facility] Internal Med [address] [address] 03/18/2022 00:00:00 03/18/2022 12:23:48 [id number] Samy de león MD [facility] Internal [address] [address] 07/15/2022 11:43:35 07/15/2022 12:15:56 Screening - NAD 270180359 Z13.9 C-scope: Get this done if not [...] understand ing of the above Essential hypertension 08357363 I10 On coreg 12.5mg bid, renewed 12/01/2021 On plavix 75mg dailyOn losartan 100mg daily Get labs Hyperlipidemia 11323027 E78.5 On crestor 20mg dailyOn zetia 10mg daily Get labs Chronic pain 45863358 G8 9.29 On hydrocodon e, given by her prior PCP, last filled on 11/17/2021 Advised that I am unable to fill any controlled medication s including opiatesShe must see pain management Not on hydrocodon e at this time 07/15/2022 Coronary arteriosclerosis 74746629 I25.10 S/p CABG and s/p stentsOn plavixGet a referral to Dr Muñiz SL Dr Muñiz SL 01/20/2022 , f/u in 6 months Moderate r ecurrent major depression 51522521 F33.1 On cymbalta 60mg dailyDoes well, renewed 12/01/2021 Not suicidal or homicidalD eclines any referrals to psychiatry Hypothyroidism 61634786 E03.9 Repeat the labsGet US thyroid Skin lesion 58118784 L98 .9 S/p surgery done by a derm at [place], [place], she made the apt her self Gynecologi c examination 48079461 Z01.419 Screening for malignant neoplasm of colon 359800604 Z12.11 Health Concerns Section Related Observation LastModified by Organization Detai ls LastModified Time None Recorded Concern Status LastModified by Organization Details LastModified Time None Recorded Advance Directives Directive N: Payers Encounter Date Sequence Insurance Name Policy Number Policy Sterling Covered Member ID Sterling Member ID Guarantor Name 07/15/2022 1 [employer] (MEDICARE REPLACEMENT /ADVANTAGE - PPO) [id number] L Ethel Beckwith [id number] Ethel Beckwith Notes Date Note Type Note [...] no new labs Samy Spencer MD [address] [facility], [place], [address], [place] 07/15/2022 13:58:54 OBGyn Episode No OBEpisode recorded.
--- OUTSIDE RECORDS SUMMARY | 2024-10-03 09:39 | XMS_ITS | Encounter Summary ---
Author Organization [facility] Address [address] [facility] [place] [address] Phone Care Team Providers Care Public Stenographer Name Role Phone Dwayne Torres MD Primary Care Provider [phone] [place] MD Primary Care Provider [phone] Hussain Torres MD Unavailable Reason for Visit * Reason Comments Medication Refill Encounter Details Date Type Department Care Team (Late st Contact Info) Description 05/26/2021 Refill [facility] - Primary Care - [place] [address] [place] [address] Kelsi Reyes MD [address] [place] [address] Medication Refill Social History Tobacco Use Types Packs/Day Years Used Date Smoking Tobacco: Every Day Cigarettes Smokeless Tobacco: Never Comments No Sex and Gender Information Value Date Recorded Sex Assigned at Not on file Legal Sex Female 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 Gender Identity Not on file Sexual Orientation Not on file documented as of this encounter Plan of Treatment Not on file documented as of this encounter Visit Diagnoses Not on filedocumented in this encounter Care Teams Public Stenographer Relationship Specialty Start Date End Date Dwayne Torres MD [address] [place] [address] PCP - General Internal Medicine 05/21/19 12/27/22 [place] MD [address] [facility] [address] [place] [address] PCP - General Family Medicine 12/28/22 Hussain Torres MD [address] [facility] [address] [place] [address] Consulting Physician Colon and Rectal Surgery 04/12/23 documented as of this encounter
--- OUTSIDE RECORDS SUMMARY | 2024-10-03 09:39 | XMS_ITS | Encounter Summary ---
Author Organization [facility] Address [address] [facility] [address] [place] [address] Phone Care Team Providers Care Cds Sales Advisor Name Role Phone Allie Chong NP Primary Care Provider [phone] Encounter Details Date Type Department Care Team (Late st Contact Info) Description 10/02/2024 Telephone [facility] [address] [place] [address] Gerardo Melissa MD [address] [facility] [address]108[address]09[address] [place], [place] [id number] Social History Tobacco Use Types Packs/Day Years [...] on file 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 I tried to call her just now to see if she was coming, no answer and VM full. Will have her rescheduled. documented in this encounter Plan of Treatment Not on file documented as of this encounter Visit Diagnoses Not on filedocumented in this encounter Care Teams Cds Sales Advisor Relationship Specialty Start Date End Date Allie Chong NP [address] [place] [address] PCP - General Nurse Practitioner 07/26/24 documented as of this encounter
--- OUTSIDE RECORDS SUMMARY | 2024-10-03 09:39 | XMS_ITS | Clinical Summary ---
Author Organization [facility] Address [address] [facility] [place] [address] Care Team Providers Care Sports Photographer Name Role Phone Dwayne Torres MD Primary Care Provider [phone] Source Comments [facility] Affiliates and Associated Physician Practices is amultiple site organization consisting of ambulatory clinics and hospital sitesin [place], [place], [place] and [place]. This disclosure is being madepursuant to the Care Everywhere program and may not contain all information available regarding this patient. 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
--- OUTSIDE RECORDS SUMMARY | 2024-10-03 09:39 | XMS_ITS | Encounter Summary ---
Author Organization [facility] Address [address] [facility] [place] [address] Phone Care Team Providers Care Construction Management Assistant Name Role Phone Dwayne Torres MD Primary Care Provider [phone] [place] MD Primary Care Provider [phone] Hussain Torres MD Unavailable Reason for Visit * Reason Comments Medication Refill Encounter Details Date Type Department Care Team (Late st Contact Info) Description 01/12/2021 Refill [facility] - Primary Care - [place] [address] [place] [address] Kelsi Reyes MD [address] [place] [address] Medication Refill Social History Tobacco Use Types Packs/Day Years Used Date Smoking Tobacco: Every Day Cigarettes Smokeless Tobacco: Never Comments No Sex and Gender Information Value Date Recorded Sex Assigned at Not on file 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 Gender Identity Not on file Sexual Orientation Not on file documented as of this encounter Plan of Treatment Not on file documented as of this encounter Visit Diagnoses Not on filedocumented in this encounter Care Teams Construction Management Assistant Relationship Specialty Start Date End Date Dwayne Torres MD [address] [place] [address] PCP - General Internal Medicine 05/21/19 12/27/22 [place] MD [address] [facility] [address] [place] [address] PCP - General Family Medicine 12/28/22 Hussain Torres MD [address] [facility] [address] [place] [address] Consulting Physician Colon and Rectal Surgery 04/12/23 documented as of this encounter
--- OUTSIDE RECORDS SUMMARY | 2024-10-03 09:39 | XMS_ITS | Encounter Summary ---
Author Organization [facility] Address [address] [place] [address] Phone Care Team Providers Care Otc Clerk Name Role Phone Troy Dunn MD Primary Care Provider [phone] Hussain Torres MD Unavailable Reason for Visit * Reason Comments Medication Refill Encounter Details Date Type Department Care Team (Late st Contact Info) Description 09/30/2023 Refill [facility] [address] [place] [address] Troy Dunn MD [address] [address] Medication Refill Social History Tobacco Use Types Packs/Day Years Used Date Smoking Tobacco: Former Cigarettes 1 53.2 1 971 - 07/25/2023 Smokeless Tobacco: Never Comments:Quit for 18 years i n between Alcohol Use Standard Drinks/Week Comments Not Currently 0 (1 standard drink = 0.6 oz pur e alcohol) [facility] Utilities Answer Date Recorded In the past 12 months has [employer] electric, gas, oil, or water company threatened to shut off services in your home? No 04/28/2023 Social Connection and Isolation Panel [NHANES] A nswer Date Recorded In a typical week, how many times do you talk on the phone with family, friends, or neighbors? 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 Gender Identity Not on file Sexual Orientation Not on file documented as of this encounter Miscellaneous Notes * Telephone Encounter - Roseline Eduardo RN - 09/30/2023 11:39 AM CDT Medication(s) refilled and signed per [facility] Chronic Medication Refill Standing Order for Pediatricand [...] [place] 12/28/22 Office Visit Troy Dunn MD [facility] Showing recent visits within past 365 [...] [place] 12/28/22 Office Visit Troy Dunn MD [facility] [place] Showing recent visits within past 365 [...] documented as of this encounter Care Teams Otc Clerk Relationship Specialty Start Date End Date Troy Dunn MD #2 [facility] [address] [place] [address] PCP - General Family Medicine 12/28/22 Hussain Torres MD #2 [facility] [address] [place] [address] Consulting Physician Colon and Rectal Surgery 04/12/23 documented as of this encounter
--- OUTSIDE RECORDS SUMMARY | 2024-10-03 09:40 | XMS_ITS | Encounter Summary ---
Author Organization [facility] Address [address] [place] [address] Phone Care Team Providers Care Boiler Room Helper Name Role Phone Dwayne Torres MD Primary Care Provider Troy Dunn MD Primary Care Provider Hussain Torres MD Unavailable Reason for Visit * Reason Comments Medication Refill Encounter Details Date Type Department Care Team (Late st Contact Info) Description 05/22/2021 Refill [facility] - [facility] - [place] [address] [place] [address] Kelsi Reyes MD [address] [place] [address] Medication Refill Social History Tobacco Use Types Packs/Day Years Used Date Smoking Tobacco: Every Day Cigarettes Smokeless Tobacco: Never Comments No Sex and Gender Information Value Date Recorded Sex Assigned at Not on file 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 Gender Identity Not on file Sexual Orientation Not on file documented as of this encounter Miscellaneous Notes * Telephone Encounter - Yoko Dwyer RN - 05/22/2021 10:42 AM CST Pt pcp is Dwayne Torres MD HYSICAL PROSPECTOR documented in this encounter Plan of Treatment Not on file documented as of this encounter Visit Diagnoses Not on filedocumented in this encounter Care Teams Boiler Room Helper Relationship Specialty Start Date End Date Dwayne Torres MD [address] [place] [address] PCP - General Internal Medicine 05/21/19 12/27/22 Troy Dunn MD #2 [facility] [address] [place] [address] PCP - General Family Medicine 12/28/22 Hussain Torres MD #2 [facility] [address] [place] [address] Consulting Physician Colon and Rectal Surgery 04/12/23 documented as of this encounter
--- OUTSIDE RECORDS SUMMARY | 2024-10-03 09:40 | XMS_ITS | Encounter Summary ---
Author Organization [facility] Address [address] [place] [address] Phone Care Team Providers Care Corporate Accounting Manager Name Role Phone Dwayne Torres MD Primary Care Provider [phone] Troy Dunn MD Primary Care Provider [phone] Hussain Torres MD Unavailable Reason for Visit * Reason Comments Medication Refill Encounter Details Date Type Department Care Team (Late st Contact Info) Description 05/20/2021 Refill [facility] - Primary Care - [place] [address] [place] [address] Kelsi Reyes MD [address] [place] [address] Medication Refill Social History Tobacco Use Types Packs/Day Years Used Date Smoking Tobacco: Every Day Cigarettes Smokeless Tobacco: Never Comments No Sex and Gender Information Value Date Recorded Sex Assigned at Not on file 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 ES SUPERINTENDENT documented in this encounter Plan of Treatment Not on file documented as of this encounter Visit Diagnoses Not on filedocumented in this encounter Care Teams Corporate Accounting Manager Relationship Specialty Start Date End Date Dwayne Torres MD [address] [place] [address] PCP - General Internal Medicine 05/21/19 12/27/22 Troy Dunn MD #2 [facility] [address] [place] [address] PCP - General Family Medicine 12/28/22 Hussain Torres MD #2 [facility] [address] [place] [address] Consulting Physician Colon and Rectal Surgery 04/12/23 documented as of this encounter
== END 2024-10-03 09:35 | disposition home or self-care (01) ==
PROVIDERS: PCP Nurse Practitioner Adult Health; Visit Provider Nurse Practitioner Adult Health
DX: E03.9 Hypothyroidism, unspecified (principal)
CPT/HCPCS: 36415; 84443

== ENCOUNTER 2024-11-12 12:54 | Outpatient (CLI) | payer MEDICARE, SELFPAY ==
--- NOTE | ~2024-11-12 | US_ITS ---
EXAMINATION: US thyroid DATE: 11/12/2024 13:09 INDICATION: Hypothyroidism TECHNIQUE: Multiple ultrasound images of the thyroid were obtained. COMPARISON: None. FINDINGS: The right thyroid lobe measures 4.3 x 1.0 x 1.4 cm. The left thyroid lobe measures 3.8 x 1.1 x 1.3 c m. Thyroid isthmus measures 2-3 mm in thickness. There is a 10 mm solid hypoechoic nodule with lobula r to ill-defined margins and with echogenic foci in the superior left thyroid lobe. (TI-RADS 5, highl y suspicious , FNA if >=1.0 cm, annual followup is >0.5 cm). There is a second wider than tall 8 mm s olid hypoechoic TI RADS 5 nodule in the mid left thyroid lobe with ill-defined margins and with uncha nged echogenic foci. There is normal echotexture, echogenicity and vascular flow throughout the remai nder of the thyroid gland. IMPRESSION: 1. Couple small TI RADS 5 nodules in the superior left thyroid lobe for which ultrasound-guided biops y would be recommended. Reviewed, dictated and finalized at location A. IMPRESSION: 1. Couple small TI RADS 5 nodules in the superior left thyroid lobe for which u ltrasound-guided biopsy would be recommended.
== END 2024-11-12 12:55 | disposition home or self-care (01) ==
LOC: MICIMG 12:55
PROVIDERS: PCP Nurse Practitioner Adult Health; Visit Provider Nurse Practitioner Adult Health
DX: E04.1 Nontoxic single thyroid nodule (principal); E03.9 Hypothyroidism, unspecified
CPT/HCPCS: 76536

== ENCOUNTER 2024-11-29 10:47 | Outpatient (CLI) | payer MEDICARE, SELFPAY ==
--- OUTSIDE RECORDS SUMMARY | 2024-11-29 10:51 | XMS_ITS | Referral Summary ---
Author Organization [facility] [address] Address [address] [place] [phone] Phone Care Team Providers Care Educational Technologist Name Role Phone Allie Chong TURF AND GROUNDS SUPERVISOR Primary Care Provider [phone] Encounters Date Type Department Care Team Description 11/26/2024 Telephone [facility] Surgery [address] [facility] Floor 1 [place] [phone] Gerardo Melissa MD 10/26/2024 11:59 PM CDT Anesthesia Event [facility] Operating Room 1 [place] [phone] Petrona Londono NP 11/26/2024 Hospital Encounter [facility] Operating Room 1 [place] [phone] Gerardo Melissa MD 11/07/2024 Telephone [facility] Surgery [address] [facility] Floor 1 [place] [phone] Gerardo Melissa MD 11/06/2024 Telephone [facility] Vascular Surgery [address] [facility] [address] [place] [address] Gerardo Melissa MD 11/05/2024 Telephone [facility] Cardiology [address] [place] [address] 8th [place] [address] [place] [address] Mitch Remy MD PhD 11/05/2024 8:00 AM CDT - 11/05/2024 9:40 AM CDT Surgery [facility] [address] [place] [phone] Mitch Remy MD PhD LEFT HEART CATHETERIZATION WITH CORONARY ANGIOGRAPHY AND WITH OR WITHOUT LEFT VENTRICULOGRAM [id number] 11/05/2024 6:19 AM CDT - 11/05/2024 1:26 PM CDT Hospital Encounter [facility] [address] [place] [phone] Mitch Remy MD PhD Acute ischemic stroke (HCC) [I63.9] (Primary Dx); 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; Status post insertion of drug eluting coronary artery stent Discharge Disposition: Discharge to home or self care 11/01/2024 Orders Only [facility] Cardiothoracic Surgery [address] [place] [address] Advanced Medicine 8th Floor [address] Room [address] [place] [phone] Maximiliano Dunbar MD 11/01/2024 Orders Only [facility] Cardiothoracic Surgery [address] [place] [address] Medicine 8th Floor [address] Room [address] [place] [phone] Maximiliano Dunbar MD 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 (Primary Dx) 10/30/2024 Telephone [facility] Vascular Surgery [address] [place] [address] Medical Office Building 3 [address] [place] [address] Gerardo Melissa MD 10/26/2024 3:30 PM CDT Pre-Admission Testing [facility] Center for Preoperative Assessment and Planning [facility] [address] [place] [phone] Preoperative testing (Primary Dx); Cerebrovascular accident (CVA), unspecified mechanism (HCC) 10/26/2024 1:34 PM CDT - 10/26/2024 11:59 PM CDT Hospital Encounter [facility] [address] [place] [address] Occlusion of right common carotid artery; Acute ischemic stroke (HCC) Discharge Disposition: Discharge to home or self care 10/18/2024 Telephone [facility] Vascular Surgery [facility] Office [facility] [address] [place] [address] Gerardo Melissa MD 10/18/2024 Orders Only [facility] Vascular Surgery [address] [place] [address] Office [facility] [address] [place] [phone] Gerardo Melissa MD Occlusion of right common carotid artery (Primary Dx); Acute ischemic stroke (HCC) 10/16/2024 1:00 PM CDT Office Visit [facility] Vascular Surgery [address] [place] [address] Office [facility] [address] [place] [address] Gerardo Melissa MD Occlusion of right common carotid artery (Primary Dx); Acute ischemic right frontal stroke (HCC) 10/08/2024 Telephone [facility] Surgery [address] [facility] Floor 1 [place] [address] Gerardo Melissa MD 10/05/2024 Results Follow-Up [facility] Vascular Surgery [address] [place] [address] Office [facility] [address] [place] [address] Malina Conley, ROSELINE CTA Head Neck W WO Contrast 10/02/2024 Telephone [facility] Vascular Surgery [address] [place] [address] Office [facility] [address] [place] [address] Gerardo Melissa MD 09/26/2024 7:14 AM CDT - 09/26/2024 11:59 PM CDT Hospital Encounter [facility] [address] [place] [address] Occlusion of right common carotid artery Discharge Disposition: Discharge to home or self care 09/26/2024 8:45 AM CDT Ancillary Procedure [facility] [address] [facility] 8th [place] [address] [place] [address] Occlusion of right common carotid artery from Last 3 Months Allergies No known active allergies Medications ezetimibe (ZETIA) 10 mg tabletIndications: hyperlipidemia Take 1 tablet (10 mg total) by mouth every morning Active carvedilol (COREG) 12.5 mg tablet Take 1 tablet (12.5 mg total) by mouth 2 (two) times a day with meals. 60 tablet 018 Active Additional Information Patient taking differently:12.5 mg oral 2 times daily with meals (bkfst, dinner),Indications: hypertension, Reported on 10/26/2024 rosuvastatin (CRESTOR) 20 mg tablet Take 1 tablet (20 mg total) by mouth daily. 30 tablet 018 Active Additional Information Patient taking differently:20 mg oralEvery morning, Indications: coronary artery disease, hyperlipidemia, Reported on 10/26/2024 clopidogrel (PLAVIX) 75 mg tabletIndications: myocardial infarction prevention Take 1 tablet (75 mg total) by mouth daily. 30 tablet 018 Active Additional Information Patient taking differently:75 mg oralDaily (early AM), Indications: Thrombosis Prevention after PCI, Reported on 11/05/[address] (CYMBALTA) 60 mg capsuleIndications :Chronic Musculoskeletal Pain Take 1 capsule (60 mg total) by mouth nightly. 30 capsule 018 Active Additional Information Patient taking differently:60 mg oral Nightly,Indications: Anxiety with Depression, Chronic Musculoskeletal Pain, Reported on 10/26/2024 losartan (COZAAR) 100 mg tablet Take 1 tablet (100 mg total) by mouth daily 025 2025 Active Additional Information Patient taking differently:100 mg oralEvery morning, Indications: hypertension, Informant: Self, Reported on 11/05/2024 levothyroxine (SYNTHROID) 50 mcg tabletIndications: hypothyroidism Take 1 tablet (50 mcg total) by mouth every morning 025 Active aspirin 325 mg tabletIndications: Cerebral Thromboembolism Prevention Take 1 tablet (325 mg total) by mouth every morning TIA 06/2024 Active meclizine (ANTIVERT) 25 mg tablet Take 1 tablet (25 mg total) by mouth 3 (three) times a day as needed for dizziness or nausea 024 Active nitroglycerin (NITROSTAT) 0.[address] 1 tablet (0.3 mg total) under the tongue as directed DISSOLVE ONE TABLET UNDER THE TONGUE EVERY 5 MINUTES NEEDED FOR CHEST PAIN. DO NOT EXCEED A TOTAL OF 3 DOSES IN 15 MINUTES 024 Active calcium citrate-vitamin D3 200 mg-6.25 mcg (250 unit) tablet Take 1 tablet by mouth every morning Supplement Active acetaminophen (TYLENOL) 325 mg tablet Take 2 tablets (650 mg total) by mouth as needed for pain Active chlorhexidine (PERIDEX) 0.12 % oral rinseIndications:M outh Infection Prevention Apply 15 mL to the mouth or throat 3 (three) times a day for 5 days 225 mL 025 2024 mupirocin (BACTROBAN) 2 % ointmentIndication s:Methicillin-Resi stant S. 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 Assessment & Plan (03/17/2018 4:57 PM LEAD CONSULTANT): This is based on pain and stiffness [...] 03/13/2018 Assessment & Plan (03/14/2018 4:46 PM LEAD CONSULTANT): History of hypertension - Continue home losartan, carvedilol Assessment & Plan (03/13/2018 11:41 PM LEAD CONSULTANT): History of hypertension - Continue home losartan, carvedilol Pyelonephritis 03/03/2018 Assessment & Plan (03/14/2018 4:46 PM LEAD CONSULTANT): Patient presents with stabbing back pain, CVA tenderness, UA with 21-[address] shows large stone in R kidney, bilateral hydronephrosis, fat stranding. Lactate negative. - Discharge with 14-day course of Bactrim 800-160 PO BID - Outpatient Urology followup for nephrolithiasis Assessment & Plan (03/13/2018 11:40 PM LEAD CONSULTANT): Patient presents with stabbing back pain, CVA [...] examination Assessment & Plan (03/14/2018 4:46 PM LEAD CONSULTANT): Patient has a history of polyarthralgia, affecting multiple joints. - Continue Duloxetine - PRN Tylenol - PRN Ibuprofen Assessment & Plan (03/13/2018 11:40 PM LEAD CONSULTANT): Patient has a history of polyarthralgia, affecting [...] Years Used Date Smoking Tobacco: Former Cigarettes Q uit: 2023 Smokeless Tobacco: Never Tobacco Cessation:Counseling Given: Not Answered Comments:1.5ppd Alcohol Use Standard Drinks/Week Comments No 0 (1 standard drink = 0.6 oz pur e alcohol) AUDIT-C Answer Date Recorded Q1: How often do you have a drink containing alcohol? Never 11/05/2024 Q2: How many drinks containi ng alcohol do you have on a typical day when you are drinking? Patient does not drink Q3: How often do you have si x or more drinks on one occasion? Never 11/05/2024 PHQ-2 Answer Date Recorded PHQ-2 Total Score (If total score is 3 or more points, staff should administer the PHQ-9) 0 07/26/2024 Personal Safety Answer Date Recorded Have you ever been in or are you currently in a harmful physical or emotional relationship or is someone making you feel afraid or unsafe? Denies 11/05/2024 Comments No Sex and Gender Information Value Date Recorded Sex Assigned at Not on file Legal Sex Female 12:36 AM LEAD CONSULTANT Gender Identity Not on file Sexual Orientation Not on file Last Filed Vital Signs Vital Sign Reading Time Taken Comments Blood Pressure 153/56 11/05/2024 12:55 PM CDT Pulse 65 11/05/2024 1:01 PM CDT Temperature 37 C (98.6 F) 11/05/2024 6:40 AM CDT Respiratory Rate 28 11/05/2024 1:01 PM CDT Oxygen Saturation 95% 11/05/2024 1:01 PM CDT Inhaled Oxygen Concentration - - Weight 82.9 kg (182 lb 12.2 oz) 11/05/2024 6:40 AM CDT Height 157.5 cm (5' 2) 11/05/2024 6:40 AM CDT Body Mass Index 33.43 11/05/2024 6:40 AM CDT Plan of Treatment Not on file Goals Goal Patient Goal Type Associated Problems Recent Progress Patient-Stated? Author Autogenerat ed Goal Care Plan Autogenerated Problem No Radha Hernandez Medical Devices Implanted Type Area Accessibility Lift Technician Device Identifier Shelf Expiration Date Model / Serial / Lot Ter[employer] Leatha Angio-Seal Vip 6fr Closere Device [id number] - [id number] - [id number] Implanted:Qty : 1 on 11/05/2024 by Mitch Remy MD PhD at [facility] Collagen Right: Femoral [employer] Leatha 05/15/2025 [id number] / [id number] / [id number] Medtronic Card Vasc Surgery 2.25 X 18mm Claudia Brazoria Rx Coronary Stent [id number] - [id number] Implanted:Qty : 1 on 11/05/2024 by Mitch Remy MD PhD at [facility] Stent Left: Anterior Descending Cornary Artery Medtronic Card Vasc Surgery 06/05/2027 [id number] [id number] / [id number] / [id number] Medtronic Card Vasc Surgery 3.0 X 30mm [place]oria Rx Coronary Stent [id number] - [id number] - [id number] Implanted:Qty : 1 on 11/05/2024 by Mitch Remy MD PhD at [facility] Stent Left: Anterior Descending Cornary Artery Medtronic Card Vasc Surgery 04/01/2027 [id number] 30UX / [id number] / [id number] Procedures Procedure Name Priority Date/Time Associated Diagnosis Comments EGFR Routine 11/05/2024 12:03 PM CDT DIFFERENTIAL AUTO Routine 11/05/2024 12:03 PM CDT CBC WITH AUTO DIFFERENTIAL Routine 11/05/2024 12:03 PM CDT BASIC METABOLIC PANEL Routine 11/05/2024 12:03 PM CDT ECG 12-LEAD Routine 11/05/2024 9:34 AM CDT LEFT HEART CATHETERIZATION WITH CORONARY ANGIOGRAPHY AND WITH AND WITHOUT LEFT VENTRICULOGRAM Routine 11/05/2024 9:27 AM CDT 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 POCT ACTIVATED CLOTTING TIME, LOW RANGE Routine 11/05/2024 9:22 AM CDT POCT ACTIVATED CLOTTING TIME, LOW RANGE Routine 11/05/2024 8:48 AM CDT EGFR Routine 10/26/2024 4:18 PM CDT Preoperative testing DIFFERENTIAL AUTO Routine 10/26/2024 4:1 8 PM CDT Preoperative testing COMPREHENSIVE METABOLIC PANEL Routine 10/26/2024 4:18 PM CDT Preoperative testing PROTIME-INR Routine 10/26/2024 4:18 PM CDT Preoperative testing Cerebrovascular accident (CVA), unspecified mechanism (HCC) CPAP APTT ALGORITHM Routine 10/26/2024 4 :18 PM CDT Preoperative testing CBC WITH AUTO DIFFERENTIAL Routine 10/26/2024 4:18 PM CDT Preoperative testing TYPE AND SCREEN 14 DAY Routine 4:18 PM CDT Preoperative testing URINALYSIS AND REFLEX TO MICROSCOPIC AND CULTURE Routine 10/26/2024 4:18 PM CDT Preoperative testing ECG 12-LEAD Routine 10/26/2024 3:48 PM CDT Preoperative testing CTA CHEST W WO CONTRAST Schedule Routine, Read Routine (OP Routine) 10/26/2024 2:12 PM CDT Occlusion of right common carotid artery Acute ischemic stroke (HCC) US CAROTIDS DUPLEX BILATERAL Schedule Routine, Read Routine (OP Routine) 09/26/2024 8:57 AM CDT Occlusion of right common carotid artery CTA HEAD NECK W WO CONTRAST Schedule Routine, Read Routine (OP Routine) 09/26/2024 8:13 AM CDT Occlusion of right common carotid artery HEPATITIS C AB W/REFL TO HCV RNA, QN, PCR (REFL) Routine 03/03/2018 10:07 AM CDT Polyarthralgia Fatigue, unspecified type from Last 3 Months or Most Recently Relevant to Health Maintenance Results * eGFR (11/05/2024 12:03 PM CDT) eGFR 87 >=60 mL/min/1. 73 m2 Comment: Interpretive Data [...] interpretive data was last reviewed 2021. Blood 11/05/2024 12:0 3 PM CDT 11/05/2024 12:27 PM CDT us Briana Stallings NP LAB BLOOD ORDERABLES F inal Result [facility] Department [place] [address] * (ABNORMAL) Differential, auto (11/05/2024 12:03 PM CDT) Neutrophil abs 4.90 1.50 - 6.50 K/cumm Imm gran abs 0.06 0.00 - 0.10 K/cumm [facility] Lymphocyte abs 4.01(H) 0.80 - 3.30 K/cumm [facility] Monocyte abs 0.93(H) 0.20 - 0.80 K/cumm [facility] Eosinophil abs 0.35 0.00 - 0.50 K/cumm [facility] Basophil abs 0.08 0.00 - 0.10 K/cumm [facility] Neutrophil pct 47.4 % [facility] Comment: Interpretive Data Percent cell count reference ranges are not reported, since discordance with absolute values may lead to misinterpretation of CBC data. Current Interpretive Data was last revised on 2017. Imm gran pct 0.6 % [facility] Comment: Interpretive Data Percent cell count reference ranges are not reported, since discordance with absolute values may lead to misinterpretation of CBC data. Current Interpretive Data was last revised on 2017. Lymphocyte pct 38.8 % [facility] Comment: Interpretive Data Percent cell count reference ranges are not reported, since discordance with absolute values may lead to misinterpretation of CBC data. Current Interpretive Data was last revised on 2017. Monocyte pct 9.0 % [facility] Comment: Interpretive Data Percent cell count reference ranges are not reported, since discordance with absolute values may lead to misinterpretation of CBC data. Current Interpretive Data was last revised on 2017. Eosinophil pct 3.4 % [facility] Comment: Interpretive Data Percent cell count reference ranges are not reported, since discordance with absolute values may lead to misinterpretation of CBC data. Current Interpretive Data was last revised on 2017. Basophil pct 0.8 % [facility] Comment: Interpretive Data Percent cell count reference ranges are not reported, since discordance with absolute values may lead to misinterpretation of CBC data. Current Interpretive Data was last revised on 2017. Blood 11/05/2024 12:0 3 PM CDT 11/05/2024 12:17 PM CDT us Briana Stallings TURF AND GROUNDS SUPERVISOR LAB BLOOD ORDERABLES F inal Result [facility] Department [place] [address] * (ABNORMAL) CBC with auto differential (11/05/2024 12:03 PM CDT) WBC 10.33(H) 3.80 - 9.90 K/cumm Hgb 11.5(L) 11.9 - 15.5 g/dL [facility] Hct 34.8(L) 35.6 - 45.5 % [facility] Plt 222 150 - 400 K/cumm [facility] MPV 10.7 9.1 - 12.3 fL [facility] RBC 3.81(L) 3.90 - 5.20 M/cumm [facility] MCV 91.3 81.3 - 96.4 fL [facility] MCH 30.2 27.1 - 33.3 pg [facility] MCHC 33.0 32.3 - 35.7 g/dL [facility] RDW CV 12.9 11.1 - 14.9 % [facility] RDW SD 43.2 35.7 - 48.1 fL [facility] NRBC abs 0.00 0.00 - 0.01 K/cumm [facility] Blood 11/05/2024 12:0 3 PM CDT 11/05/2024 12:17 PM CDT Briana Stallings NP LAB BLOOD ORDERABLES F inal Result [facility] Department [place] [address] * Basic metabolic panel (11/05/2024 12:03 PM CDT) Sodium 142 135 - 145 mmol/L Potassium, pl 4.1 3.3 - 4.9 mmol/L [facility] Chloride 108 97 - 110 mmol/L [facility] CO2 25 22 - 32 mmol/L [facility] Anion gap 9 2 - 15 mmol/L [facility] BUN 11 6 - 25 mg/dL [facility] Creatinine 0.75 0.60 - 1.10 mg/dL [facility] Glucose 89 70 - 199 mg/dL [facility] Comment: Interpretive Data Fasting glucose >/= [...] interpretive data was last revised 2022. Calcium 8.5 8.5 - 10.3 mg/dL [facility] Blood 11/05/2024 12:0 3 PM CDT 11/05/2024 12:17 PM CDT us Briana Stallings TURF AND GROUNDS SUPERVISOR LAB BLOOD ORDERABLES F inal Result Performing Organization Address City/[facility]/ZIP Co de Phone Number KRISTIE [facility] Department [place] [address] * ECG 12 lead (11/05/2024 9:34 AM CDT) Ventricular Rate EKG/Min [address] [facility] Atrial Rate 71 BPM [facility] LA-Interval (MSEC) 216 ms [facility] QRS-Interval (MSEC) [address] [facility] QT-Interval (MSEC) 448 ms [facility] QTc 486 ms [facility] P [place] 68 degrees [facility] R [place] 59 degrees [facility] T [place] 53 degrees [facility] Diagnosis Sinus rhythm with 1st degree A-V block Otherwise normal ECG When compared with ECG of 26-OCT-2024 15:48, PREVIOUS ECG IS PRESENT Confirmed by Raven CAAL, [facility] ([id number]) on 11/05/2024 2:36:25 PM [facility] 11/05/2024 9:34 AM CDT 11/05/2024 2:36 PM CDT us Mitch Remy MD PhD ECG ORDERABLES Final Resu lt Performing Organization Address [facility] Co de Phone Number [facility] * LEFT HEART CATHETERIZATION WITH CORONARY ANGIOGRAPHY AND WITH AND WITHOUT LEFT VENTRICULOGRAM (11/05/2024 9:27 AM CDT) Anatomical Region Laterality Modality X-Ray Angiograph y Narrative 11/05/2024 9:43 AM CDT Cardiac catheterization Interventional fellow Dr. Jasmine Espinoza HPI: 69-year-old female with a history of hypertension, hyperlipidemia, ongoing tobacco abuse, markedly positive family history, severe peripheral vascular disease in 2 prior PCIs now referred for preoperative cardiac catheterization. Patient had a cutting balloon angioplasty to the PDA in 2002. In 2003 she had multiple bare metal stents placed to the LAD with follow-up showing moderate diffuse ingrowth. 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 Scheduled for vascular surgery later in the month and referred for preoperative angioplasty. Procedure: The patient is prepped and draped in sterile fashion. 1% local lidocaine anesthesia was utilized. Fentanyl and Versed were given as premedication. Optiray was used as a contrast agent. Patient had previously received aspirin and Plavix and holding. Using ultrasound directed micropuncture technique. Angiography was performed with a 6 [place] JR4 and a 6 [place] EBU 3.5 guide catheter. Heparin was administered to maintain ACT of 300 seconds or greater. Angioplasty was performed with 0.014 in choice floppy wire and a [employer] laser catheter. Three runs were made at 60/60, 70/70 pulse and fluence using a 50:50 mixture of contrast. Further predilatation performed with a 3 mm by 20 mm AngioSculpt balloon with 3 inflations performed up to 18 atmospheres. Intravascular ultrasound performed Wingz agdaagux sauk-suiattle eye catheter. The area was stented with 2.25 x 18 and 3030 mm claudia [place]razoria drug-eluting stents post dilated with a 3.25 x 18 mm NC Sapphire up to 22 atmospheres. Upon completion of the case the right femoral artery sheath was removed area closed with a 6 [place] Angio-Seal. Abundant amounts of intracoronary nicardipine were given for pain and blood pressure control. Hemodynamics: The LVEDP is 19 mm of mercury. There was no gradient upon pullback across the aortic valve. Coronary angiography: Left coronary system-the left main is free of significant disease. The LAD is stented in the proximal and mid segments. There is also stent in the distal LAD. The area between the 1st and 2nd septal single pointed operator is diffusely narrowed. After a large mid diagonal branch the stented segment is completely occluded distally. The distal apex fills from the diagonal to apical collateral. Circumflex system is nondominant. 30-40% ostial disease. This serial 40% lesions in the 1st OM. The continuation of the left posterolateral was a small vessel. Right coronary-the right coronary artery is a dominant vessel. There is some 30% plaquing in the proximal portion and in the mid distal portion. The site of the cutting balloon angioplasty of the PDA is widely patent. There is minimal plaquing in the right posterolateral branch. PCI of the LAD: The area was initially wired and underwent laser angioplasty using a 50:50 mixture of simultaneously injected contrast and saline. Three passes were made up to a maximum 70/70 pulse and fluence. An AngioSculpt was used to further dilate before over stenting with 2.25 x 18 and 3.0 x 30 mm claudia [place] drug-eluting stents post dilated with a 3.25 NC balloon up to 22 atmospheres. This will, no dissection and KENNEDY 3 flow. Overall impression: 1. Marked restenosis of proximal and mid previously placed bare metal stents 2003 successfully retreated with laser angioplasty and over stenting with 2.25 x 18 and 3.0 x 30 claudia [place] stents post dilated to 3.25 mm. 2. Occlusion of distal apical LAD stents with apical segment filling from diagonal collateral. 3. Previous cutting balloon angioplasty of PDA widely patent. 4. 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 5. Right-sided CVA. 6. Ongoing tobacco abuse Therapy recommendations: Patient was started on intravenous nitroglycerin for ongoing hypertension. Plavix to continue for least a month and aspirin indefinitely. Surgical treatment of her carotid/innominate disease per Dr. Melissa. us Maximiliano Dunbar MD CV CARDIAC CATH PROC EDURES Final Result * (ABNORMAL) POCT Activated clotting time, low range (11/05/2024 9:22 AM CDT) DISKOVRe ACT 281(H) 123 - 168 sec POC Performer [id number] [facility] POC Device Number [id number] [facility] Blood 11/05/2024 9:22 AM CDT 11/05/2024 9:22 AM CDT us Mitch Remy MD PhD LAB POCT ORDERABLES - SERVANDO CE Final Result [facility] Department [place] [address] * (ABNORMAL) POCT Activated clotting time, low range (11/05/2024 8:48 AM CDT) Pathologist [employer] ACT 321(H) 123 - 168 sec POC Performer [id number] [facility] POC Device Number [id number] [facility] Blood 11/05/2024 8:48 AM CDT 11/05/2024 8:48 AM CDT Mitch Remy MD PhD LAB POCT ORDERABLES - SERVANDO CE Final Result Performing Organization Address [facility] Co de Phone Number [facility] Department [place] [address] * TYPE AND SCREEN 14 DAY (10/26/2024 4:18 PM CDT) ABO Rh B Positive Taiwo, indirect Negative [facility] Blood 10/26/2024 4:18 PM CDT 10/26/2024 4:47 PM CDT Narrative [facility] - 10/26/2024 5:41 PM CDT Has the patient had Daratumumab or Isatuximab in the past 6 months?->Unknown Is this test being ordered in advance for a procedure?->Yes Expected date of procedure:->11/14/24 Has the patient been transfused in the past 3 months?->No Has the patient been in the past 3 months?->No Karla Trevino T[employer] GROUNDS SUPERVISOR LAB BLOOD BANK TEST ORDERABLE S Final Result Performing Organization Address [facility] Co de Phone Number [facility] Department [place] [address] * eGFR (10/26/2024 4:18 PM CDT) eGFR 71 >=60 mL/min/1. 73 m2 Comment: Interpretive Data [...] interpretive data was last reviewed 2021. Blood 10/26/2024 4:18 PM CDT 10/26/2024 4:59 PM CDT us Karla Trevino [employer] SUPERVISOR LAB BLOOD ORDERABLES Final Re sult [facility] Department [place] [address] * (ABNORMAL) Differential, auto (10/26/2024 4:18 PM CDT) Neutrophil abs 5.19 1.50 - 6.50 K/cumm Imm gran abs 0.03 0.00 - 0.10 K/cumm [facility] Lymphocyte abs 3.37(H) 0.80 - 3.30 K/cumm [facility] Monocyte abs 0.84(H) 0.20 - 0.80 K/cumm [facility] Eosinophil abs 0.29 0.00 - 0.50 K/cumm [facility] Basophil abs 0.08 0.00 - 0.10 K/cumm [facility] Neutrophil pct 52.9 % [facility] Comment: Interpretive Data Percent cell count reference ranges are not reported, since discordance with absolute values may lead to misinterpretation of CBC data. Current Interpretive Data was last revised on 2017. Imm gran pct 0.3 % [facility] Comment: Interpretive Data Percent cell count reference ranges are not reported, since discordance with absolute values may lead to misinterpretation of CBC data. Current Interpretive Data was last revised on 2017. Lymphocyte pct 34.4 % [facility] Comment: Interpretive Data Percent cell count reference ranges are not reported, since discordance with absolute values may lead to misinterpretation of CBC data. Current Interpretive Data was last revised on 2017. Monocyte pct 8.6 % [facility] Comment: Interpretive Data Percent cell count reference ranges are not reported, since discordance with absolute values may lead to misinterpretation of CBC data. Current Interpretive Data was last revised on 2017. Eosinophil pct 3.0 % [facility] Comment: Interpretive Data Percent cell count reference ranges are not reported, since discordance with absolute values may lead to misinterpretation of CBC data. Current Interpretive Data was last revised on 2017. Basophil pct 0.8 % [facility] Comment: Interpretive Data Percent cell count reference ranges are not reported, since discordance with absolute values may lead to misinterpretation of CBC data. Current Interpretive Data was last revised on 2017. Blood 10/26/2024 4:18 PM CDT 10/26/2024 4:59 PM CDT Karla Trevino LAB BLOOD ORDERABLES Final Re sult Performing Organization Address [facility] Co de Phone Number [facility] Department [place] [address] * CPAP aPTT algorithm (10/26/2024 4:18 PM CDT) aPTT 35 28 - 38 sec Comment: Interpretive Data Heparin therapeutic range: 66.0 - 100.0 seconds. Range based on correlation with therapeutic heparin activity range of 0.3 - 0.7 Units/mL. Current interpretive data was last revised on 2023. Blood 10/26/2024 4:18 PM CDT 10/26/2024 4:18 PM CDT Karla Trevino [employer] SUPERVISOR LAB BLOOD ORDERABLES Final Re sult Performing Organization Address [facility] Co de Phone Number [facility] Department [place] [address] * (ABNORMAL) Urinalysis reflex to microscopic and culture Urine, clean voided (10/26/2024 4:18 PM CDT) Color, ur Straw Yellow Clarity, ur Clear Clear [facility] Specific gravity, ur >1.042(H) 1.003 - 1.030 [facility] pH, urine 6.5 [facility] Comment: Interpretive Data U rine pH is affected by diet, medications, systemic acid-base disturbances, and renal tubular function. pH may affect urinary stone formation. For example, urine pH below 6.0 may help reduce the tendency for calcium phosphate stones and pH greater than 6.0 may reduce the tendency for uric acid stone formation. Source: [facility] [place] Current Interpretive Data was last revised on 2017 Protein, ur ql Trace Negative [facility] Glucose, ur ql Negative Negative [facility] Ketones, ur Negative Negative [facility] Bilirubin, ur Negative Negative [facility] Blood, ur Negative Negative [facility] Urobilinogen, ur <2.0 <2.0 mg/dL [facility] Nitrite, ur Negative Negative [facility] Leukocyte esterase, ur Negative Negative [facility] UA reflex comment Reflex conditions for microscopic UA and culture not met. [facility] Urine, clean voided 10/26/2024 4:18 PM CDT 10/26/2024 4:42 PM CDT Karla Trevino NP LAB MICROBIOLOGY - GENERAL OR DERABLES Final Result [facility] Department [place] [address] * CBC with auto differential (10/26/2024 4:18 PM CDT) WBC 9.80 3.80 - 9.90 K/cumm Hgb 12.2 11.9 - 15.5 g/dL [facility] Hct 37.5 35.6 - 45.5 % [facility] Plt 276 150 - 400 K/cumm [facility] MPV 10.5 9.1 - 12.3 fL [facility] RBC 4.07 3.90 - 5.20 M/cumm [facility] MCV 92.1 81.3 - 96.4 fL [facility] MCH 30.0 27.1 - 33.3 pg [facility] MCHC 32.5 32.3 - 35.7 g/dL [facility] RDW CV 13.2 11.1 - 14.9 % [facility] RDW SD 44.7 35.7 - 48.1 fL [facility] NRBC abs 0.00 0.00 - 0.01 K/cumm [facility] Blood 10/26/2024 4:18 PM CDT 10/26/2024 4:59 PM CDT Karla Trevino [employer] SUPERVISOR LAB BLOOD ORDERABLES Final Re sult Performing Organization Address [facility] de Phone Number [facility] [place] [address] * Protime-INR (10/26/2024 4:18 PM CDT) PT 10.3 9.7 - 13.0 sec INR 0.95 0.90 - 1.20 [facility] Comment: Interpretive data Oral anticoagulant therapeutic ranges: Venous thromboembolism prophylaxis or treatment: 2.0-3.0 CARDIOLOGY Standard range: 2.0-3.0 High-intensity range: 2.5-3.5 Refer to indication-specific guidelines for appropriate target ranges for prosthetic heart valve replacement. Current interpretive data was last revised on 2019. Blood 10/26/2024 4:18 PM CDT 10/26/2024 4:18 PM CDT Karla Trevino [employer] SUPERVISOR LAB BLOOD ORDERABLES Final Re sult Performing Organization Address [facility] Co de Phone Number [facility] [place] [address] * Comprehensive metabolic panel (10/26/2024 4:18 PM CDT) Sodium 140 135 - 145 mmol/L Potassium, pl 4.8 3.3 - 4.9 mmol/L [facility] Chloride 102 97 - 110 mmol/L [facility] CO2 27 22 - 32 mmol/L [facility] Anion gap 11 2 - 15 mmol/L [facility] BUN 18 6 - 25 mg/dL [facility] Creatinine 0.89 0.60 - 1.10 mg/dL [facility] Glucose 95 70 - 199 mg/dL [facility] Comment: Interpretive Data Fasting glucose >/= [...] interpretive data was last revised 2022. Calcium 9.5 8.5 - 10.3 mg/dL [facility] Bilirubin, total 0.3 0.1 - 1.2 mg/dL [facility] Protein, pl 7.4 6.5 - 8.5 g/dL [facility] Albumin 4.5 3.5 - 5.0 g/dL [facility] Alk phos 93 40 - 130 Units/L [facility] ALT 20 7 - 45 Units/L [facility] AST 25 10 - 45 Units/L [facility] Blood 10/26/2024 4:18 PM CDT 10/26/2024 4:59 PM CDT us Karla Trevino [employer] SUPERVISOR LAB BLOOD ORDERABLES Final Re sult [facility] [place] [address] * ECG 12 lead (10/26/2024 3:48 PM CDT) Pathologist [facility] Ventricular Rate EKG/Min [address] [facility] Atrial Rate [address] [facility] LA-Interval (MSEC) 202 ms [facility] QRS-Interval (MSEC) 90 ms [facility] QT-Interval (MSEC) 470 ms [facility] QTc 445 ms [facility] P [place] 75 degrees [facility] R [place] 61 degrees [facility] T [place] 72 degrees [facility] Diagnosis Sinus bradycardia Otherwise normal ECG No previous ECGs available Confirmed by Terrance Carbajal MD ([id number]) on 10/29/2024 4:23:39 PM [facility] 10/26/2024 3:48 PM CDT 10/29/2024 4:23 PM CDT us Karla Trevino NP ECG ORDERABLES Final Result [facility] * CTA Chest W WO Contrast (10/26/2024 2:12 PM CDT) Anatomical Region Laterality Modality Chest N/A Computed Tomogra phy 10/26/2024 4:26 PM CDT Impressions 10/26/2024 9:51 PM CDT 1. 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 2. Mild atherosclerotic stenosis of the proximal left subclavian artery; the proximal left common carotid artery is poorly evaluated due to streak artifact. 3. Suggestion of severe multifocal left anterior descending coronary artery stenosis, not well evaluated on this non-gated study. Recommend cardiology evaluation if clinically indicated. 4. Right hilar lymphadenopathy is indeterminate, possibly reactive. Dictated by: Mitch Meehan MD The radiology attending physician has personally reviewed this study, and had reviewed and/or edited this written report and agrees with it. Electronically signed by: Willie Alfaro M.D. Narrative 10/26/2024 9:51 PM CDT EXAMINATION: CTA CHEST W WO CONTRAST HISTORY: Stroke, evaluate for embolic source TECHNIQUE: Computed tomographic images were acquired with and without intravenous contrast using a Chest angiographic protocol optimized for aortic dissection (aorta). The Contrast enhanced transaxial images were obtained following the intravenous administration of 95 ml of nonionic contrast. Multiplanar reformatted images and three-dimensional images of the aorta and associated vasculature were obtained on the 3-D workstation and sent to the PACS archival system. 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 The proximal right common carotid artery and proximal right subclavian artery are occluded with distal reconstitution; the imaged cervical right internal carotid artery is diminutive. Surgical clips right supraclavicular likely correlating with prior carotid-subclavian bypass. There is multifocal atherosclerosis with up to mild stenosis of the left subclavian artery; the proximal left common carotid artery is not well evaluated due to streak artifact from the contrast bolus. 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 Non-angiographic findings: Thyroid contain subcentimeter nodules. There is no supraclavicular, axillary, or mediastinal lymphadenopathy. The heart is normal in size, there is no pericardial effusion. Thoracic aorta and the pulmonary artery are normal in caliber. The esophagus is nondilated. Imaged portions of the upper abdomen demonstrate left renal cyst, partially imaged. There is apparent severe multifocal stenosis of the left anterior descending coronary artery, imperfectly evaluated on the present study. There is right hilar lymphadenopathy measuring up to 1.6 cm. No pleural effusion, pulmonary consolidation or pneumothorax. No suspicious pulmonary nodules. No suspicious osseous lesion postoperative findings of median sternotomy. Right breast calcifications. Procedure Note Willie Alfaro MD PhD - 10/26/2024 EXAMINATION: CTA CHEST W WO CONTRAST HISTORY: Stroke, evaluate for embolic source TECHNIQUE: Computed tomographic images were acquired with and without intravenous contrast using a Chest angiographic protocol optimized for aortic dissection (aorta). The Contrast enhanced transaxial images were obtained following the intravenous administration of 95 ml of nonionic contrast. Multiplanar reformatted images and three-dimensional images of the aorta and associated vasculature were obtained on the 3-D workstation and sent to the PACS archival system. 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 The proximal right common carotid artery and proximal right subclavian artery are occluded with distal reconstitution; the imaged cervical right internal carotid artery is diminutive. Surgical clips right supraclavicular likely correlating with prior carotid-subclavian bypass. There is multifocal atherosclerosis with up to mild stenosis of the left subclavian artery; the proximal left common carotid artery is not well evaluated due to streak artifact from the contrast bolus. 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 Non-angiographic findings: Thyroid contain subcentimeter nodules. There is no supraclavicular, axillary, or mediastinal lymphadenopathy. The heart is normal in size, there is no pericardial effusion. Thoracic aorta and the pulmonary artery are normal in caliber. The esophagus is nondilated. Imaged portions of the upper abdomen demonstrate left renal cyst, partially imaged. There is apparent severe multifocal stenosis of the left anterior descending coronary artery, imperfectly evaluated on the present study. There is right hilar lymphadenopathy measuring up to 1.6 cm. No pleural effusion, pulmonary consolidation or pneumothorax. No suspicious pulmonary nodules. No suspicious osseous lesion postoperative findings of median sternotomy. Right breast calcifications. IMPRESSION: 1. 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 2. Mild atherosclerotic stenosis of the proximal left subclavian artery; the proximal left common carotid artery is poorly evaluated due to streak artifact. 3. Suggestion of severe multifocal left anterior descending coronary artery stenosis, not well evaluated on this non-gated study. Recommend cardiology evaluation if clinically indicated. 4. Right hilar lymphadenopathy is indeterminate, possibly reactive. Dictated by: Mitch Meehan MD The radiology attending physician has personally reviewed this study, and had reviewed and/or edited this written report and agrees with it. Electronically signed by: Willie Alfaro M.D. Gerardo Melissa MD IMG CT PROCEDURES Final Resul t * US Carotids Duplex Bilateral (09/26/2024 8:57 AM CDT) Anatomical Region Laterality Modality Vascular Bilateral Ultrasound 09/26/2024 8:25 AM CDT Narrative 09/26/2024 12:35 PM CDT [facility] - Department of Vascular Surgery, Vascular Laboratory [address] [place], [place] [id number] Carotid Duplex Ultrasound Report Patient Name: ETHEL HOBSON : 1955 (69y ) Study Date: 09/26/2024 8:25:12 AM Gender: F Tech: IMAN Location: [facility] Provider: GERARDO MELISSA Quality: Adequate Order Provider: [...] LT VERT PSV 90 cm/sec FINDINGS: Performing Meat Cutting Block Repairer: Nimo Sifuentes RVT. Rt Common Carotid Artery: [...] Procedure Note Gerardo Melissa MD - 09/26/2024 [facility] - Department of Vascular Surgery,Vascular Laboratory [address] [place] [id number] Carotid Duplex Ultrasound Report Patient Name: ETHEL HOBSON : 1955 (69y ) Study Date: 09/26/2024 8:25:12 AM Gender: F Tech: IMAN Location: [facility] Provider: GERARDO MELISSA Quality: Adequate Order Provider: [...] LT VERT PSV 90 cm/sec FINDINGS: Performing Meat Cutting Block Repairer: Nimo Sifuentes RVT. Rt Common Carotid Artery: [...] above. Electronically Signed By: Gerardo Melissa MD [facility] 09/26/2024 12:16:27 PM CDT us Gerardo Melissa [...] the CTA were generated on a dedicated workstation/seismic prospecting observer helper. Contrast information: 100 mL Optiray-350 IV COMPARISON: [...] the CTA were generated on a dedicated workstation/seismic prospecting observer helper. Contrast information: 100 mL Optiray-350 IV COMPARISON: [...] IM CT PROCEDURES Final Resul t * HEPATITIS C AB W/REFL TO HCV [...] for you. Please contact a client success director if you would like additional testing done on this patient or contact your jewelry sales associate to obtain a client custom reflex testing authorization request form. SIGNAL TO CUT-OFF 0.01 <1.00 [facility] Blood specimen (specimen) 03/03/2018 10:07 AM CDT 03/03/2018 10:08 AM CDT Narrative Resulting Agency Comment Performing Organization Information: Site ID: [id number] Name: [facility] Address: [address] [place] [id number] Director: Kendall Marsh D.O., MPH Hunter Schwartz MD LAB BLOOD ORDERABLES Fin al Result [facility] [place] from Last 3 Months or Most Recently Relevant to Health Maintenance Additional Health Concerns Active Problems Noted Date Diagnosed Date Autogenerated Problem 11/01/2024 Insurance [facility] AETNA MEDICARE GOLD [facility] AETNA MEDICARE GOLD Advance Directives For more information, please contact: [phone] * Full Code (Latest Code Status on File) Date Activated Date Inactivated Comments 11/05/2024 10:22 AM 11/05/2024 5:31 PM * Full Code Date Activated Date Inactivated Comments 07/25/2024 6:39 PM 07/26/2024 10:29 PM * Full Code Date Activated Date Inactivated Comments 03/13/2018 2:33 PM 03/14/2018 10:36 PM Care Teams Educational Technologist Relationship Specialty Start Date End Date Allie Chong NP [address] [place] [address] PCP - General Nurse Practitioner 07/26/24
--- OUTSIDE RECORDS SUMMARY | 2024-11-29 10:51 | XMS_ITS | Encounter Summary ---
Author Organization [facility] Address [address] [place] [address] Phone Care Team Providers Care Shirt Creaser Name Role Phone Dwayne Torres MD Primary Care Provider [phone] Troy Dunn MD Primary Care Provider [phone] Hussain Torres MD Unavailable Reason for Visit * Reason Comments Medication Refill Encounter Details Date Type Department Care Team (Late st Contact Info) Description 05/26/2021 Refill [facility] - Primary Care - [place] [address] [place] [address] Kelsi Reyes MD [address] [place] [address] Medication Refill Social History Tobacco Use Types Packs/Day Years Used Date Smoking Tobacco: Every Day Cigarettes Smokeless Tobacco: Never Comments No Sex and Gender Information Value Date Recorded Sex Assigned at Not on file 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 Gender Identity Not on file Sexual Orientation Not on file documented as of this encounter Plan of Treatment Not on file documented as of this encounter Visit Diagnoses Not on filedocumented in this encounter Care Teams Shirt Creaser Relationship Specialty Start Date End Date Dwayne Torres MD [address] [place] [address] PCP - General Internal Medicine 05/21/19 12/27/22 Troy Dunn MD [address] [facility] [address] [place] [address] PCP - General Family Medicine 12/28/22 Hussain Torres MD [address] [facility] [address] [place] [address] Consulting Physician Colon and Rectal Surgery 04/12/23 documented as of this encounter
--- OUTSIDE RECORDS SUMMARY | 2024-11-29 10:52 | XMS_ITS | Clinical Summary ---
Author Organization [facility] Address [address] [place] [address] Phone Care Team Providers Care Tobacco Educator Name Role Phone Troy Dunn MD Primary Care Provider [phone] Hussain Torres MD Unavailable Allergies No known [...] mouth daily. 90 Tablet 3 02/27/2024 Active meclizine (ANTIVERT) 25 MG Tablet Take 1 Tablet by mouth 3 times daily as needed for Dizziness. 30 Tablet 03/22/2024 Active clopidogrel (PLAVIX) 75 MG Tablet Take 1 tablet by mouth once daily 90 Tablet 1 07/20/2024 Active rosuvastatin (CRESTOR) 20 MG Tablet Take 1 tablet by mouth nightly 90 Tablet 10/22/2024 Active Active Problems No known active problems Encounters Date Type Department Care Team Description 10/20/2024 Refill [facility] [place] [address] [place] [address] Troy Dunn MD Medication Refill from Last 3 Months Immunizations Immunization Administration Dates Next Due Covid-19, Mrna, Lnp-s, Pf, 3 0 Mcg/0.3 Ml Dose (Pfizer) 12/11/2020,11/20/2020 Influenza Vaccine less than 3 yrs 02/07/2024 Influenza Vaccine, Quadrivalent, PF 04/28/2023,1 ,03/14/2018 Influenza, Intradermal, Quad rivalent, Preservative Free 03/14/2018 Pneumococcal Vaccine Adult - 23 Valent 0 Pneumococcal conjugate PCV20 , polysaccharide [id number] conjugate, adjuvant, PF 04/28/2023 Family History Medical [...] drink = 0.6 oz pur e alcohol) [facility] Utilities Answer Date Recorded In the past 12 months has e electric, gas, oil, or water company threatened to shut off services in your home? No 04/28/2023 Social Connection and Isolation Panel Answer Date Recorded In a typical week, how many times do you talk on the phone with family, friends, or neighbors? 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 [employer] Gender Identity Not on file Sexual Orientation [...] Bone Density 1956 TdaP Immunization 1956 Cologuard 2001 Immunochemical Fecal Occult Blood 2001 Lung Cancer Screening 2006 Zoster Immunization (1 of 2) 2006 Respiratory Syncytial Virus (RSV) Immunization (Adult) (1 - Risk 60-74 years 1-dose series) 2016 Mammogram 06/08/2023 06/08/2022 SARS-COV-2 Immunization ( season) 2024 12/11/2020, 11/20/2020 Influenza Immunization (#1) 2024 1012/2023, 04/28/2023, 02/14/2020, Additional history exists Colonoscopy 05/12/2028 05/12/2023, 05/12/2023 Colorectal Cancer Screening 05/12/2028 Hepatitis C Virus (HCV) Screening Completed 12/28/2022 Pneumococcal Immunization (50+ years) Completed 04/28/2023, 02/14/2020 Pneumococcal Immunization Combined Discontinued 04/28/2023, 02/14/2020 Hepatitis B Immunization Aged Out No longer [...] CDT) hepatitis C antibody 0.09 <1 S/[facility] ARCH [id number] B 12/28/2022 9:07 PM CDT [facility] Comment: Signal/Cutoff ratio < 0.79 is Nondetected Signal/Cutoff ratio 0.80-0.99 is Grayzone Signal/Cutoff ratio > 0.99 is Detected Supplemental assays are recommended if signal/cutoff ratio is >/=1.00. Signal/cutoff ratio result >/= 5.00 is 97% predictive of positivity for recombinant immunoblot assay (RIBA) and will be reported to the [place] Department of Public Health as required. Blood Venipuncture / Unknown 12/28/2022 11:27 AM CDT 12/28/2022 11:27 AM CDT us Troy Dunn MD CHEMISTRY ORDERABLES Final Re sult [facility] [address] [place] [address], [place] from Last 3 Months or Most Recently Relevant to Health [place] [address] MEDICARE C [employer]ET[employer] Care Teams Tobacco Educator Relationship Specialty Start Date End Date Troy Dunn MD [address] [facility] [address] [place] [address] PCP - General Family Medicine 12/28/22 Hussain Torres MD [address] [facility] [address] [place] [address] Consulting Physician Colon and Rectal Surgery 04/12/23
--- OUTSIDE RECORDS SUMMARY | 2024-11-29 10:52 | XMS_ITS | Encounter Summary ---
Author Organization [facility] Address [address] [facility] [place] [address] Phone Care Team Providers Care Process Engineering Intern Name Role Phone Dwayne Torres MD Primary Care Provider [phone] Troy Dunn MD Primary Care Provider [phone] Hussain Torres MD Unavailable Reason for Visit * Reason Comments Medication Refill Encounter Details Date Type Department Care Team (Late st Contact Info) Description 01/12/2021 Refill [facility] - [facility] - [place] [address] [place] [address] Kelsi Reyes MD [address] [place] [address] Medication Refill Social History Tobacco Use Types Packs/Day Years Used Date Smoking Tobacco: Every Day Cigarettes Smokeless Tobacco: Never Comments No Sex and Gender Information Value Date Recorded Sex Assigned at Not on file 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 Gender Identity Not on file Sexual Orientation Not on file documented as of this encounter Plan of Treatment Not on file documented as of this encounter Visit Diagnoses Not on filedocumented in this encounter Care Teams Process Engineering Intern Relationship Specialty Start Date End Date Dwayne Torres MD [address] [place] [address] PCP - General Internal Medicine 05/21/19 12/27/22 Troy Dunn MD #2 [facility] [address] [place] [address] PCP - General Family Medicine 12/28/22 Hussain Torres MD #2 [facility] [address] [place] [address] Consulting Physician Colon and Rectal Surgery 04/12/23 documented as of this encounter
--- OUTSIDE RECORDS SUMMARY | 2024-11-29 10:52 | XMS_ITS | Encounter Summary ---
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
--- OUTSIDE RECORDS SUMMARY | 2024-11-29 10:52 | XMS_ITS | Encounter Summary ---
Author Organization [facility] Address [address] [facility] [place] [address] Phone Care Team Providers Care Lactation Coordinator Name Role Phone Dwayne Torres MD Primary Care Provider [phone] Troy Dunn MD Primary Care Provider [phone] Hussain Torres MD Unavailable Reason for Visit * Reason Comments Medication Refill Encounter Details Date Type Department Care Team (Late st Contact Info) Description 05/22/2021 Refill [facility] - Primary Care - [place] [address] [place] [address] Kelsi Reyes MD [address] [place] [address] Medication Refill Social History Tobacco Use Types Packs/Day Years Used Date Smoking Tobacco: Every Day Cigarettes Smokeless Tobacco: Never Comments No Sex and Gender Information Value Date Recorded Sex Assigned at Not on file 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 Gender Identity Not on file Sexual Orientation Not on file documented as of this encounter Miscellaneous Notes * Telephone Encounter - Yoko Dwyer RN - 05/22/2021 10:42 AM CST Pt pcp is Dwayne Torres MD TATION WIREMAN documented in this encounter Plan of Treatment Not on file documented as of this encounter Visit Diagnoses Not on filedocumented in this encounter Care Teams Lactation Coordinator Relationship Specialty Start Date End Date Dwayne Torres MD [address] [place] [address] PCP - General Internal Medicine 05/21/19 12/27/22 Troy Dunn MD #2 [facility] [address] [place] [address] PCP - General Family Medicine 12/28/22 Hussain Torres MD #2 [facility] [address] [place] [address] Consulting Physician Colon and Rectal Surgery 04/12/23 documented as of this encounter
--- OUTSIDE RECORDS SUMMARY | 2024-11-29 10:52 | XMS_ITS | Encounter Summary ---
Author Organization [facility] Address [address] [place] [address] Care Team Providers Care Locomotive Firer Name Role Phone ErnestoAllie childress RADHA Primary Care Provider [phone] Encounter Details Date Type Department Care Team (Late st Contact Info) Description 11/26/2024 Hospital Encounter [facility] Operating Room [address] [place] [address] Gerardo Melissa MD [address] [facility] [address] [place] [address] Social History Tobacco Use Types Packs/Day Years Used Date Smoking Tobacco: Former Cigarettes Q uit: 2023 Smokeless Tobacco: Never Comments:1.5ppd Alcohol Use Standard Drinks/Week Comments No [...] on file 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 Never 11/05/2024 7:11 AM Lakeshia Luke RN Q2: How many drinks containing alcohol do you have on a typical day when you are drinking? Patient does not drink 11/05/2024 7:11 AM Lakeshia Luke RN Q3: How often do you have six or more drinks on one occasion? 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
--- OUTSIDE RECORDS SUMMARY | 2024-11-29 10:52 | XMS_ITS | Encounter Summary ---
Author Organization [facility] Address [address] [facility] [place] [address] Phone Care Team Providers Care Tool Maintenance Technician Name Role Phone Dwayne Torres MD Primary Care Provider [phone] Troy Dunn MD Primary Care Provider [phone] Hussain Torres MD Unavailable Reason for Visit * Reason Comments Medication Refill Encounter Details Date Type Department Care Team (Late st Contact Info) Description 04/10/2021 Refill [facility] - Primary Care - [place] [address] [place] [address] Kelsi Reyes MD [address] [place] [address] Medication Refill Social History Tobacco Use Types Packs/Day Years Used Date Smoking Tobacco: Every Day Cigarettes Smokeless Tobacco: Never Comments No Sex and Gender Information Value Date Recorded Sex Assigned at Not on file 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 Gender Identity Not on file Sexual Orientation Not on file documented as of this encounter Plan of Treatment Not on file documented as of this encounter Visit Diagnoses Not on filedocumented in this encounter Care Teams Tool Maintenance Technician Relationship Specialty Start Date End Date Dwayne Torres MD [address] [place] [address] PCP - General Internal Medicine 05/21/19 12/27/22 Troy Dunn MD #2 [facility] [address] [place] [address] PCP - General Family Medicine 12/28/22 Hussain Torres MD #[address] [facility] [address] [place] [address] Consulting Physician Colon and Rectal Surgery 04/12/23 documented as of this encounter
--- OUTSIDE RECORDS SUMMARY | 2024-11-29 10:52 | XMS_ITS | Encounter Summary ---
Author Organization [facility] Address [address] [facility] [place] [address] Phone Care Team Providers Care General Service Technician Name Role Phone Dwayne Torres MD Primary Care Provider [phone] Troy Dunn MD Primary Care Provider [phone] Hussain Torres MD Unavailable Reason for Visit * Reason Comments Medication Refill Encounter Details Date Type Department Care Team (Late st Contact Info) Description 11/01/2020 Refill [facility] - Primary Care - [place] [address] [place] [address] Ciera Munoz Anitha, PAC [address] [place] [address] Medication Refill Social History Tobacco Use Types Packs/Day Years Used Date Smoking Tobacco: Every Day Cigarettes Smokeless Tobacco: Never Comments No Sex and Gender Information Value Date Recorded Sex Assigned at Not on file 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
--- OUTSIDE RECORDS SUMMARY | 2024-11-29 10:52 | XMS_ITS | Clinical Summary ---
Author Organization [facility] [address] [facility] Address [address] [place] [phone] Phone Care Team Providers Care Contact Lens Technician Name Role Phone Allie Chong NP Primary Care Provider [phone] Allergies No known active allergies Medications ezetimibe (ZETIA) 10 mg tabletIndications: hyperlipidemia Take 1 tablet (10 mg total) by mouth every morning 018 Active carvedilol (COREG) 12.5 mg tablet Take [...] (50 mcg total) by mouth every morning Active aspirin 325 mg tabletIndications: Cerebral Thromboembolism [...] TOTAL OF 3 DOSES IN 15 MINUTES Active calcium citrate-vitamin D3 200 mg-6.25 mcg [...] (coronary artery disease) 07/25/2024 [facility] with negative rheumatoid factor 03/17/2018 [...] joint. Assessment & Plan (03/17/2018 4:57 PM UTILITY ARBORIST): This is based on pain and stiffness [...] 03/13/2018 Assessment & Plan (03/14/2018 4:46 PM UTILITY ARBORIST): History of hypertension - Continue home losartan, carvedilol Assessment & Plan (03/13/2018 11:41 PM UTILITY ARBORIST): History of hypertension - Continue home losartan, carvedilol Pyelonephritis 03/03/2018 Assessment & Plan (03/14/2018 4:46 PM UTILITY ARBORIST): Patient presents with stabbing back pain, CVA tenderness, UA with 21-[address] shows large stone in R kidney, bilateral hydronephrosis, fat stranding. Lactate negative. - Discharge with 14-day course of Bactrim 800-160 PO BID - Outpatient Urology followup for nephrolithiasis Assessment & Plan (03/13/2018 11:40 PM UTILITY ARBORIST): Patient presents with stabbing back pain, CVA [...] examination Assessment & Plan (03/14/2018 4:46 PM UTILITY ARBORIST): Patient has a history of polyarthralgia, affecting multiple joints. - Continue Duloxetine - PRN Tylenol - PRN Ibuprofen Assessment & Plan (03/13/2018 11:40 PM UTILITY ARBORIST): Patient has a history of polyarthralgia, affecting [...] Type Department Care Team Description 11/26/2024 Telephone [facility] Surgery [address] [facility] Floor 1 [place] [address] Gerardo Melissa MD 11/26/[address] [facility] 1 [place] [address] Gerardo Melissa MD 11/07/2024 Telephone [facility] Surgery [address] [facility] Floor 1 [place] [address] Gerardo Melissa MD 11/06/2024 Telephone [facility] Vascular Surgery [address] [facility] Medical Office Building 3 [address] [place] [address] Gerardo Melissa MD 11/05/2024 8:00 AM CDT - 11/05/2024 9:40 AM CDT Surgery [facility] 1 [place] [address] Mitch Remy MD PhD LEFT HEART CATHETERIZATION WITH CORONARY ANGIOGRAPHY AND WITH OR WITHOUT LEFT VENTRICULOGRAM [id number] 11/05/2024 6:19 AM CDT - 11/05/2024 1:26 PM CDT Hospital Encounter [facility] 1 [place] [address] Mitch Remy MD PhD Acute ischemic stroke (HCC) [I63.9] (Primary Dx); 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; Status post insertion of drug eluting coronary artery stent Discharge Disposition: Discharge to home or self care 11/05/2024 Telephone [facility] Cardiology [facility] 8th [place] [address] [place] [address] Mitch Remy MD PhD 11/01/2024 Orders Only [facility] Cardiothoracic Surgery [facility] 8th Floor [address] Room [address] [address] Maximiliano Dunbar MD 11/01/2024 Orders Only [facility] Cardiothoracic Surgery [address] [facility] 8th Floor [address] Room [address] [address] Maximiliano Dunbar MD 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 (Primary Dx) 10/30/2024 Telephone [facility] Vascular Surgery [address] [place] [address] Building [address] [place] [address] Gerardo Melissa MD 10/26/2024 11:59 PM CDT Anesthesia Event [facility] 1 [place] [address] Petrona Londono NP 10/26/2024 3:30 PM CDT Pre-Admission Testing [facility] ([facility]) [address] [place] [id number] Preoperative testing (Primary Dx); Cerebrovascular accident (CVA), unspecified mechanism (HCC) 10/26/2024 1:34 PM CDT - 10/26/2024 11:59 PM CDT Hospital Encounter [facility] ([facility]) [address] [place] [address] Occlusion of right common carotid artery; Acute ischemic stroke (HCC) Discharge Disposition: Discharge to home or self care 10/18/2024 Telephone [facility] Vascular Surgery [address] [place] [address] [address] [place] [address] Gerardo Melissa MD 10/18/2024 Orders Only [facility] Vascular Surgery [address] [place] [address] 3 [address] [place] [address] Gerardo Melissa MD Occlusion of right common carotid artery (Primary Dx); Acute ischemic stroke (HCC) 10/16/2024 1:00 PM CDT Office Visit [facility] Vascular Surgery [address] [place] [address] 3 [address] [place] [address] Gerardo Melissa MD Occlusion of right common carotid artery (Primary Dx); Acute ischemic right frontal stroke (HCC) 10/08/2024 Telephone [facility] Surgery [address] [facility] Floor 1 [place] [address] Gerardo Melissa MD 10/05/2024 Results Follow-Up [facility] Vascular Surgery [address] [facility] [address] [place] [address] Malina Conley, ROSELINE CTA Head Neck W WO Contrast 10/02/2024 Telephone [facility] Vascular Surgery [address] [facility] [place] [address] [place] [address] Gerardo Melissa MD 09/26/2024 8:45 AM CDT Ancillary Procedure [facility] [address] [facility] 8th [place] [address] [place] [address] Occlusion of right common carotid artery 09/26/2024 7:14 AM CDT - 09/26/2024 11:59 PM CDT Hospital Encounter [facility] ([facility] [address] [place] [address] Occlusion of right common carotid artery Discharge Disposition: Discharge to home or self care from Last 3 Months Immunizations Immunization Administration Dates Next Due Influenza, Quadrivalent, Spl it, Preservative Free, Intramuscular 03/14/2018 Surgical History Surgery Date Site/Laterality Comments NEPHROSTOMY CARDIAC CATHETERIZATION CORONARY ARTERY BYPASS GRAFT HYSTERECTOMY SECTION x2 (1977 and 1978) CHOLECYSTECTOMY APPENDECTOMY CARDIAC CATHETERIZATION 11/05/2024 Left Procedure: LEFT HEART CATHETERIZATION WITH CORONARY ANGIOGRAPHY AND WITH OR WITHOUT LEFT VENTRICULOGRAM [id number]; Surgeon: Mitch Remy MD PhD; Location: [facility]RIC REFRIGERATOR PREPARER; Service: Cardiovascular; Laterality: Left; Medical devices from this surgery are in the Medical Devices section. Medical History Medical History Date Comments Hypertension Kidney stone Arthritis Stroke (HCC) Thyroid disease Hyperlipidemia Coronary artery disease Carotid artery disease Family History Medical History Relation Name Comments Heart attack Brother Cancer Father Diabetes Maternal Grandmother Diabetes Paternal Grandmother Diabetes Sister Heart attack Sister Malig Hyperthermia Neg Hx Pseudochol deficiency Neg Hx Relation Name Status Comments Brother Father Maternal Grandmother Paternal Grandmother Sister Social [...] on file Legal Sex Female 12:36 AM UTILITY ARBORIST Gender Identity Not on file Sexual Orientation [...] 11/05/2024 6:40 AM CDT Plan of Treatment Health Maintenance Due Date Last Done Comments Breast Cancer Screening-Mammogram 1956 Colon Cancer Screening-Colonoscopy 1955 DTaP/Tdap/Td Vaccine (1 - Tdap) 09/21/1967 Hepatitis B Screening 1974 Zoster Vaccine (1 of 2) 2006 Well Visit 65+ 2021 Covid-19 Vaccine (3 - 2023-2 5 season) 2024 12/11/2020, 11/20/2020 Osteoporosis Screening-Bone Density Scan 01/09/2024 01/08/2022 Influenza Vaccine (#1) 2024 , 04/28/2023, 02/14/2020, Additional history exists Depression Screening 07/25/2025 07/25/2024 Fall Risk Assessment 11/05/2025 11/05/2024 Hepatitis C Screening Completed 03/03/2018 Pneumococcal vaccine 65+ Completed 04/28/2023, 01/30 Goals Goal Patient Goal Type Associated Problems Recent Progress Patient-Stated? Author Autogenerat ed Goal Care Plan Autogenerated Problem No Radha Hernandez Medical Devices Implanted Type Area Key Punch Operator Device Identifier Shelf Expiration Date Model / Serial / Lot [employer] Leatha Angio-Seal Vip 6fr Closere Device [id number] - [id number] - [id number] Implanted:Qty : 1 on 11/05/2024 by Mitch Remy MD PhD at [facility] Collagen Right: Femoral [employer] Leatha 05/15/2025 [id number] / [id number] / [id number] Medtronic Card Vasc Surgery 2.25 X 18mm Claudia Pelham Rx Coronary Stent [id number] - [id number] - [id number] Implanted:Qty : 1 on 11/05/2024 by Mitch Remy MD PhD at [facility] Stent Left: Anterior Descending Cornary Artery Medtronic Card Vasc Surgery 06/05/2027 [id number] / [id number] / [id number] Medtronic Card Vasc Surgery 3.0 X 30mm Claudia Pelham Rx Coronary Stent [id number] - [id number] - [id number] Implanted:Qty : 1 on 11/05/2024 by Mitch Remy MD PhD at [facility] Stent Left: Anterior Descending Cornary Artery Medtronic Card Vasc Surgery 04/01/2027 [id number] / [id number] / [id number] Procedures Procedure Name Priority Date/Time Associated Diagnosis [...] 3 PM CDT 11/05/2024 12:27 PM CDT Briana Rodriguezmaigiovanny PERFORATOR TYPIST LAB BLOOD ORDERABLES F inal Result [facility] [place] [address] * (ABNORMAL) Differential, auto (11/05/2024 12:03 PM CDT) Neutrophil abs 4.90 1.50 - 6.50 K/cumm Imm gran abs 0.06 0.00 - 0.10 K/cumm [facility] Lymphocyte abs 4.01(H) 0.80 - 3.30 K/cumm [facility] Monocyte abs 0.93(H) 0.20 - 0.80 K/cumm [facility] Eosinophil abs 0.35 0.00 - 0.50 K/cumm [facility] Basophil abs 0.08 0.00 - 0.10 K/cumm [facility] Neutrophil pct 47.4 % [facility] Comment: Interpretive Data Percent cell count reference ranges are not reported, since discordance with absolute values may lead to misinterpretation of CBC data. Current Interpretive Data was last revised on 2017. Imm gran pct 0.6 % [facility] Comment: Interpretive Data Percent cell count reference ranges are not reported, since discordance with absolute values may lead to misinterpretation of CBC data. Current Interpretive Data was last revised on 2017. Lymphocyte pct 38.8 % [facility] Comment: Interpretive Data Percent cell count reference ranges are not reported, since discordance with absolute values may lead to misinterpretation of CBC data. Current Interpretive Data was last revised on 2017. Monocyte pct 9.0 % [facility] Comment: Interpretive Data Percent cell count reference ranges are not reported, since discordance with absolute values may lead to misinterpretation of CBC data. Current Interpretive Data was last revised on 2017. Eosinophil pct 3.4 % [facility] Comment: Interpretive Data Percent cell count reference ranges are not reported, since discordance with absolute values may lead to misinterpretation of CBC data. Current Interpretive Data was last revised on 2017. Basophil pct 0.8 % [facility] Comment: Interpretive Data Percent cell count reference ranges are not reported, since discordance with absolute values may lead to misinterpretation of CBC data. Current Interpretive Data was last revised on 2017. Blood 11/05/2024 12:0 3 PM CDT 11/05/2024 12:17 PM CDT Briana Stallings NP LAB BLOOD ORDERABLES F inal Result [facility] Department [place] [address] * (ABNORMAL) CBC with auto differential (11/05/2024 12:03 PM CDT) WBC 10.33(H) 3.80 - 9.90 K/cumm Hgb 11.5(L) 11.9 - 15.5 g/dL [facility] Hct 34.8(L) 35.6 - 45.5 % [facility] Plt 222 150 - 400 K/cumm [facility] MPV 10.7 9.1 - 12.3 fL [facility] RBC 3.81(L) 3.90 - 5.20 M/cumm [facility] MCV 91.3 81.3 - 96.4 fL [facility] MCH 30.2 27.1 - 33.3 pg [facility] MCHC 33.0 32.3 - 35.7 g/dL [facility] RDW CV 12.9 11.1 - 14.9 % [facility] RDW SD 43.2 35.7 - 48.1 fL [facility] NRBC abs 0.00 0.00 - 0.01 K/cumm [facility] Blood 11/05/2024 12:0 3 PM CDT 11/05/2024 12:17 PM CDT Briana Stallings PERFORATOR TYPIST LAB BLOOD ORDERABLES F inal Result [facility] [place] [address] * Basic metabolic panel (11/05/2024 12:03 PM CDT) [facility] Sodium 142 135 - 145 mmol/L Potassium, pl 4.1 3.3 - 4.9 mmol/L [facility] Chloride 108 97 - 110 mmol/L [facility] CO2 25 22 - 32 mmol/L [facility] Anion gap 9 2 - 15 mmol/L [facility] BUN 11 6 - 25 mg/dL [facility] Creatinine 0.75 0.60 - 1.10 mg/dL [facility] Glucose 89 70 - 199 mg/dL [facility] Comment: Interpretive Data Fasting glucose >/= [...] 2022. Calcium 8.5 8.5 - 10.3 mg/dL [facility] Blood 11/05/2024 12:0 3 PM CDT 11/05/2024 12:17 PM CDT Briana Stallings PERFORATOR TYPIST LAB BLOOD ORDERABLES F inal Result Performing Organization Address [facility]/ZIP Co de Phone Number [facility] Department [place] [address] * ECG 12 lead (11/05/2024 9:34 AM CDT) Ventricular Rate EKG/Min 71 BPM [facility] Atrial Rate 71 BPM [facility] KS-Interval (MSEC) 216 ms [facility] QRS-Interval (MSEC) 84 ms [facility] QT-Interval (MSEC) 448 ms [facility] QTc 486 ms [facility] P [place] 68 degrees [facility] R [place] 59 degrees [facility] T [place] 53 degrees [facility] Diagnosis Sinus rhythm with 1st degree A-V block Otherwise normal ECG When compared with ECG of 26-OCT-2024 15:48, PREVIOUS ECG IS PRESENT Confirmed by Terrance Carbajal MD ([id number]) on 11/05/2024 2:36:25 PM [facility] 11/05/2024 9:34 AM CDT 11/05/2024 2:36 PM CDT us Mitch Remy MD PhD ECG ORDERABLES Final Resu lt [facility] * LEFT HEART CATHETERIZATION WITH CORONARY ANGIOGRAPHY [...] technique. Angiography was performed with a 6 Prydeinig JR4 and a 6 Prydeinig EBU 3.5 guide catheter. Heparin was administered to maintain ACT of 300 seconds or greater. Angioplasty was performed with 0.014 in choice floppy wire and a [employer] laser catheter. Three runs were made at 60/60, 70/70 pulse and fluence using a 50:50 mixture of contrast. Further predilatation performed with a 3 mm by 20 mm AngioSculpt balloon with 3 inflations performed up to 18 atmospheres. Intravascular ultrasound performed [employer] [place] eye catheter. The area was stented with 2.25 x 18 and 3030 mm claudia Pelham drug-eluting stents post dilated with a 3.25 x 18 mm NC Sapphire up to 22 atmospheres. Upon completion of the case the right femoral artery sheath was removed area closed with a 6 Prydeinig Angio-Seal. Abundant amounts of intracoronary nicardipine were [...] area between the 1st and 2nd septal tooth cutter pinion is diffusely narrowed. After a large mid [...] 18 and 3.0 x 30 mm claudia Pelham drug-eluting stents post dilated with a 3.25 NC balloon up to 22 atmospheres. This will, no dissection and KENNEDY 3 flow. Overall impression: 1. Marked restenosis of proximal and mid previously placed bare metal stents 2003 successfully retreated with laser angioplasty and over stenting with 2.25 x 18 and 3.0 x 30 claudia Pelham stents post dilated to 3.25 mm. 2. [...] time, low range (11/05/2024 9:22 AM CDT) ACT 281(H) 123 - 168 sec POC Performer [id number] [facility] POC Device Number [id number] [facility] Blood 11/05/2024 9:22 AM CDT 11/05/2024 9:22 AM CDT us Mitch Remy MD PhD LAB POCT ORDERABLES - SERVANDO CE Final Result Performing Organization Address [facility] Co de Phone Number [facility] [place] [address] * (ABNORMAL) POCT Activated clotting time, low range (11/05/2024 8:48 AM CDT) ACT 321(H) 123 - 168 sec POC Performer [id number] [facility] POC Device Number [id number] [facility] Blood 11/05/2024 8:48 AM CDT 11/05/2024 8:48 AM CDT us Mitch Remy MD PhD LAB POCT ORDERABLES - SERVANDO CE Final Result Performing Organization Address City/[facility]/ZIP Co de Phone Number [facility] [place] [address] * TYPE AND SCREEN 14 DAY (10/26/2024 4:18 PM CDT) ABO Rh B Positive Taiwo, indirect Negative [facility] Blood 10/26/2024 4:18 PM CDT 10/26/2024 4:47 PM CDT Narrative [facility] - 10/26/2024 5:41 PM CDT Has the patient had Daratumumab or Isatuximab in the past 6 months?->Unknown Is this test being ordered in advance for a procedure?->Yes Expected date of procedure:->11/14/24 Has the patient been transfused in the past 3 months?->No Has the patient been in the past 3 months?->No Karla Trevino NP LAB BLOOD BANK TEST ORDERABLE S Final Result [facility] [place] [address] * eGFR (10/26/2024 4:18 PM CDT) eGFR [...] 10/26/2024 4:59 PM CDT us Karla Trevino PERFORATOR TYPIST LAB BLOOD ORDERABLES Final Re sult [facility] [place] [address] * (ABNORMAL) Differential, auto (10/26/2024 4:18 PM CDT) Pathologist [facility] Neutrophil abs 5.19 1.50 - 6.50 K/cumm Imm gran abs 0.03 0.00 - 0.10 K/cumm [facility] Lymphocyte abs 3.37(H) 0.80 - 3.30 K/cumm [facility] Monocyte abs 0.84(H) 0.20 - 0.80 K/cumm [facility] Eosinophil abs 0.29 0.00 - 0.50 K/cumm [facility] Basophil abs 0.08 0.00 - 0.10 K/cumm [facility] Neutrophil pct 52.9 % [facility] Comment: Interpretive Data Percent cell count reference ranges are not reported, since discordance with absolute values may lead to misinterpretation of CBC data. Current Interpretive Data was last revised on 2017. Imm gran pct 0.3 % [facility] Comment: Interpretive Data Percent cell count reference ranges are not reported, since discordance with absolute values may lead to misinterpretation of CBC data. Current Interpretive Data was last revised on 2017. Lymphocyte pct 34.4 % [facility] Comment: Interpretive Data Percent cell count reference ranges are not reported, since discordance with absolute values may lead to misinterpretation of CBC data. Current Interpretive Data was last revised on 2017. Monocyte pct 8.6 % [facility] Comment: Interpretive Data Percent cell count reference ranges are not reported, since discordance with absolute values may lead to misinterpretation of CBC data. Current Interpretive Data was last revised on 2017. Eosinophil pct 3.0 % [facility] Comment: Interpretive Data Percent cell count reference ranges are not reported, since discordance with absolute values may lead to misinterpretation of CBC data. Current Interpretive Data was last revised on 2017. Basophil pct 0.8 % [facility] Comment: Interpretive Data Percent cell count reference ranges are not reported, since discordance with absolute values may lead to misinterpretation of CBC data. Current Interpretive Data was last revised on 2017. Blood 10/26/2024 4:18 PM CDT 10/26/2024 4:59 PM CDT [facility] PERFORATOR TYPIST LAB BLOOD ORDERABLES Final Re sult Performing Organization Address [facility] Co de Phone Number [facility] [place] [address] * CPAP aPTT algorithm (10/26/2024 4:18 PM CDT) aPTT 35 28 - 38 sec Comment: Interpretive Data Heparin therapeutic range: 66.0 - 100.0 seconds. Range based on correlation with therapeutic heparin activity range of 0.3 - 0.7 Units/mL. Current interpretive data was last revised on 2023. Blood 10/26/2024 4:18 PM CDT 10/26/2024 4:18 PM CDT [facility] PERFORATOR TYPIST LAB BLOOD ORDERABLES Final Re sult Performing Organization Address [facility] Co de Phone Number [facility] [place] [employer] [place] [address] * (ABNORMAL) Urinalysis reflex to microscopic and culture Urine, clean voided (10/26/2024 4:18 PM CDT) Color, ur Straw Yellow Clarity, ur Clear Clear [facility] Specific gravity, ur >1.042(H) 1.003 - 1.030 [facility] pH, urine 6.5 [facility] Comment: Interpretive Data U rine pH is affected by diet, medications, systemic acid-base disturbances, and renal tubular function. pH may affect urinary stone formation. For example, urine pH below 6.0 may help reduce the tendency for calcium phosphate stones and pH greater than 6.0 may reduce the tendency for uric acid stone formation. Source: [facility] Current Interpretive Data was last revised on 2017 Protein, ur ql Trace Negative [facility] Glucose, ur ql Negative Negative [facility] Ketones, ur Negative Negative [facility] Bilirubin, ur Negative Negative [facility] Blood, ur Negative Negative [facility] Urobilinogen, ur <2.0 <2.0 mg/dL [facility] Nitrite, ur Negative Negative [facility] Leukocyte esterase, ur Negative Negative [facility] UA reflex comment Reflex conditions for microscopic UA and culture not met. [facility] Urine, clean voided 10/26/2024 4:18 PM CDT 10/26/2024 4:42 PM CDT Karla Trevino NP LAB MICROBIOLOGY - GENERAL OR DERABLES Final Result [facility] Department [place] [address] * CBC with auto differential (10/26/2024 4:18 PM CDT) WBC 9.80 3.80 - 9.90 K/cumm Hgb 12.2 11.9 - 15.5 g/dL [facility] Hct 37.5 35.6 - 45.5 % [facility] Plt 276 150 - 400 K/cumm [facility] MPV 10.5 9.1 - 12.3 fL [facility] RBC 4.07 3.90 - 5.20 M/cumm [facility] MCV 92.1 81.3 - 96.4 fL [facility] MCH 30.0 27.1 - 33.3 pg [facility] MCHC 32.5 32.3 - 35.7 g/dL [facility] RDW CV 13.2 11.1 - 14.9 % [facility] RDW SD 44.7 35.7 - 48.1 fL [facility] NRBC abs 0.00 0.00 - 0.01 K/cumm [facility] Blood 10/26/2024 4:18 PM CDT 10/26/2024 4:59 PM CDT Karla Trevino PERFORATOR TYPIST LAB BLOOD ORDERABLES Final Re sult Performing Organization Address [facility] de Phone Number [facility] [place] [employer] [place] [address] * Protime-INR (10/26/2024 4:18 PM CDT) PT 10.3 9.7 - 13.0 sec INR 0.95 0.90 - 1.20 [facility] Comment: Interpretive data Oral anticoagulant therapeutic ranges: Venous thromboembolism prophylaxis or treatment: 2.0-3.0 CARDIOLOGY Standard range: 2.0-3.0 High-intensity range: 2.5-3.5 Refer to indication-specific guidelines for appropriate target ranges for prosthetic heart valve replacement. Current interpretive data was last revised on 2019. Blood 10/26/2024 4:18 PM CDT 10/26/2024 4:18 PM CDT Karla Trevino PERFORATOR TYPIST LAB BLOOD ORDERABLES Final Re sult Performing Organization Address [facility] [place] [facility] [place] [address] * Comprehensive metabolic panel (10/26/2024 4:18 PM CDT) Sodium 140 135 - 145 mmol/L Potassium, pl 4.8 3.3 - 4.9 mmol/L [facility] Chloride 102 97 - 110 mmol/L [facility] CO2 27 22 - 32 mmol/L [facility] Anion gap 11 2 - 15 mmol/L [facility] BUN 18 6 - 25 mg/dL [facility] Creatinine 0.89 0.60 - 1.10 mg/dL [facility] Glucose 95 70 - 199 mg/dL [facility] Comment: Interpretive Data Fasting glucose >/= [...] 2022. Calcium 9.5 8.5 - 10.3 mg/dL [facility] Bilirubin, total 0.3 0.1 - 1.2 mg/dL [facility] Protein, pl 7.4 6.5 - 8.5 g/dL [facility] Albumin 4.5 3.5 - 5.0 g/dL [facility] Alk phos 93 40 - 130 Units/L [facility] ALT 20 7 - 45 Units/L [facility] AST 25 10 - 45 Units/L [facility] Blood 10/26/2024 4:18 PM CDT 10/26/2024 4:59 PM CDT Karla Trevino NP LAB BLOOD ORDERABLES Final Re sult [facility] [place] [address] * ECG 12 lead (10/26/2024 3:48 PM CDT) Ventricular Rate EKG/Min 54 BPM [facility] Atrial Rate 54 BPM [facility] [place]-Interval (MSEC) 202 ms [facility] QRS-Interval (MSEC) 90 ms [facility] QT-Interval (MSEC) 470 ms [facility] QTc 445 ms [facility] P [place] 75 degrees [facility] R [place] 61 degrees [facility] T [place] 72 degrees [facility] Diagnosis Sinus bradycardia Otherwise normal ECG No previous ECGs available Confirmed by Terrance Carbajal MD ([id number]) on 10/29/2024 4:23:39 PM [facility] 10/26/2024 3:48 PM CDT 10/29/2024 4:23 PM CDT Karla Trevino PERFORATOR TYPIST ECG ORDERABLES Final Result [facility] * CTA Chest W WO Contrast (10/26/2024 [...] it. Electronically signed by: Willie Alfaro M.D. us Gerardo Melissa MD IMG CT PROCEDURES Final Resul t * US Carotids Duplex Bilateral (09/26/2024 8:57 AM CDT) Anatomical Region Laterality Modality Vascular Bilateral Ultrasound 09/26/2024 8:25 AM CDT Narrative 09/26/2024 12:35 PM CDT [facility] - Department of Vascular Surgery, Vascular Laboratory [address] [place] [address] Carotid Duplex Ultrasound Report Patient Name: ETHEL HOBSON : 1955 (69y ) Study Date: 09/26/2024 8:25:12 AM Gender: F Tech: IMAN Location: [facility] Ref Provider: GERARDO MELISSA Quality: [...] LT VERT PSV 90 cm/sec FINDINGS: Performing Creel Operator: Nimo Sifuentes RVT. Rt Common Carotid Artery: [...] Procedure Note Gerardo Melissa MD - 09/26/2024 [facility] - Department of Vascular Surgery,Vascular Laboratory [address] [place] [address] Carotid Duplex Ultrasound Report Patient Name: ETHEL HOBSON : 1955 (69y ) Study Date: 09/26/2024 8:25:12 AM Gender: F Tech: IMAN Location: [facility] Ref Provider: GERARDO MELISSA Quality: [...] LT VERT PSV 90 cm/sec FINDINGS: Performing Creel Operator: Nimo Sifuentes RVT. Rt Common Carotid Artery: [...] 12:16:27 PM CDT us Gerardo Melissa MD IM US PROCEDURES Final Resul t * CTA [...] the CTA were generated on a dedicated workstation/food beverage server. Contrast information: 100 mL Optiray-350 IV COMPARISON: [...] the CTA were generated on a dedicated workstation/food beverage server. Contrast information: 100 mL Optiray-350 IV COMPARISON: [...] on file for you. Please contact a manager client if you would like additional testing done on this patient or contact your branch sales and service representative to obtain a client custom reflex testing authorization request form. SIGNAL TO CUT-OFF 0.01 <1.00 [facility] [place] Blood specimen (specimen) 03/03/2018 10:07 AM CDT 03/03/2018 10:08 AM CDT Narrative Resulting Agency Comment Performing Organization Information: Site ID: [id number] Name: [facility] Address: [address] [id number] Director: Kendall Marsh D.O., MPH Hunter Schwartz MD LAB BLOOD ORDERABLES Fin al Result [facility] [place] from Last 3 Months or Most Recently Relevant to Health Maintenance Additional Health Concerns Active Problems Noted Date Diagnosed Date Autogenerated Problem 11/01/2024 Insurance [facility] [employer] MEDICARE GOLD [facility] ACCESS AETNA MEDICARE GOLD Advance Directives For more information, please contact: [phone] * Full Code (Latest Code Status on File) Date Activated Date Inactivated Comments 11/05/2024 10:22 AM 11/05/2024 5:31 PM * Full Code Date Activated Date Inactivated Comments 07/25/2024 6:39 PM 07/26/2024 10:29 PM * Full Code Date Activated Date Inactivated Comments 03/13/2018 2:33 PM 03/14/2018 10:36 PM Care Teams Contact Lens Technician Relationship Specialty Start Date End Date Allie Chong NP [address] [place] [id number] PCP - General Nurse Practitioner 07/26/24
--- OUTSIDE RECORDS SUMMARY | 2024-11-29 10:52 | XMS_ITS | Encounter Summary ---
Author Organization [facility] Address [address] [facility] [place] [address] Phone Care Team Providers Care Cage Supervisor Name Role Phone Troy Dunn MD Primary Care Provider [phone] Hussain Torres MD Unavailable Reason for Visit * Reason Comments Medication Refill Encounter Details Date Type Department Care Team (Late st Contact Info) Description 01/09/2024 [facility]ill [facility] [address] [place] [address] Troy Dunn MD #[address] [address] Medication Refill Social History Tobacco Use Types Packs/Day Years Used Date Smoking Tobacco: Former Cigarettes 1 53.2 1 971 - 07/25/2023 Smokeless Tobacco: Never Comments:Quit for 18 years i n between Alcohol Use Standard Drinks/Week Comments Not Currently 0 (1 standard drink = 0.6 oz pur e alcohol) [facility] Utilities Answer Date Recorded In the past 12 months has [employer] electric, gas, oil, or water company threatened to shut off services in your home? No 04/28/2023 Social Connection and Isolation Panel Answer Date Recorded In a typical week, how many times do you talk on the phone with family, friends, or neighbors? 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
--- OUTSIDE RECORDS SUMMARY | 2024-11-29 10:52 | XMS_ITS | Clinical Summary ---
Author Organization [facility] Address [address] [facility] [place] [address] Care Team Providers Care Improvement Engineer Name Role Phone Dwayne Torres MD Primary Care Provider [phone] Source Comments [facility] Affiliates and Associated Physician Practices is amultiple site organization consisting of ambulatory clinics and hospital sitesin [place], [place], [place] and [place]. This disclosure is being madepursuant to the Care Everywhere program and may not contain all information available regarding this patient. 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
--- OUTSIDE RECORDS SUMMARY | 2024-11-29 10:52 | XMS_ITS | Encounter Summary ---
Author Organization [facility] Address [address] [facility] [place] [address] Phone Care Team Providers Care Cathode Ray Tube Assembler Name Role Phone Dwayne Torres MD Primary Care Provider [phone] Troy Dunn MD Primary Care Provider [phone] Hussain Torres MD Unavailable Reason for Visit * Reason Comments Medication Refill Encounter Details Date Type Department Care Team (Late st Contact Info) Description 05/20/2021 Refill [facility] - Primary Care - [place] [address] [place] [address] Kelsi Reyes MD [address] [place] [address] Medication Refill Social History Tobacco Use Types Packs/Day Years Used Date Smoking Tobacco: Every Day Cigarettes Smokeless Tobacco: Never Comments No Sex and Gender Information Value Date Recorded Sex Assigned at Not on file Legal Sex Female 10:12 AM BARK GRINDER Gender Identity Not on file Sexual Orientation Not on file documented as of this encounter Miscellaneous Notes * Telephone Encounter - Laurel Del Rio RN - 05/21/2021 7:10 AM BARK GRINDER Refused- no PCP in this practice. GRINDER documented in this encounter Plan of Treatment Not on file documented as of this encounter Visit Diagnoses Not on filedocumented in this encounter Care Teams Cathode Ray Tube Assembler Relationship Specialty Start Date End Date Dwayne Torres MD [address] [place] [address] PCP - General Internal Medicine 05/21/19 12/27/22 Troy Dunn MD #2 [facility] [address] [place] [address] PCP - General Family Medicine 12/28/22 Hussain Torres MD #2 [facility] [address] [place] [address] Consulting Physician Colon and Rectal Surgery 04/12/23 documented as of this encounter
--- OUTSIDE RECORDS SUMMARY | 2024-11-29 10:52 | XMS_ITS | Encounter Summary ---
Author Organization [facility] Address [address] [facility] [place] [address] Phone Care Team Providers Care Auto Clocks Repairer Name Role Phone Troy Dunn MD Primary Care Provider [phone] Hussain Torres MD Unavailable Reason for Visit * Reason Comments Medication Refill Encounter Details Date Type Department Care Team (Late st Contact Info) Description 09/30/2023 Refill [facility] Family [facility] [address] [place] [address] Troy Dunn MD #[address] [address] Medication Refill Social History Tobacco Use Types Packs/Day Years Used Date Smoking Tobacco: Former Cigarettes 1 53.2 1 971 - 07/25/2023 Smokeless Tobacco: Never Comments:Quit for 18 years i n between Alcohol Use Standard Drinks/Week Comments Not Currently 0 (1 standard drink = 0.6 oz pur e alcohol) [facility] Utilities Answer Date Recorded In the past 12 months has [employer] electric, gas, oil, or water company threatened to shut off services in your home? No 04/28/2023 Social Connection and Isolation Panel Answer Date Recorded In a typical week, how many times do you talk on the phone with family, friends, or neighbors? 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 Gender Identity Not on file Sexual Orientation Not on file documented as of this encounter Miscellaneous Notes * Telephone Encounter - Roseline Eduardo RN - 09/30/2023 11:39 AM CDT Medication(s) refilled and signed per [facility] Chronic Medication Refill Standing Order for Pediatricand [...] MD [facility] 12/28/22 Office Visit Troy [facility]Dnn [facility] Showing recent visits within past 365 [...] [place] 12/28/22 Office Visit Troy Dunn MD [facility] Showing recent visits within past 365 [...] documented as of this encounter Care Teams Auto Clocks Repairer Relationship Specialty Start Date End Date Troy Dunn MD #2 [facility] [address] [place] [address] PCP - General Family Medicine 12/28/22 Hussain Torres MD #2 [facility] [address] [place] [address] Consulting Physician Colon and Rectal Surgery 04/12/23 documented as of this encounter
--- OUTSIDE RECORDS SUMMARY | 2024-11-29 10:52 | XMS_ITS | Encounter Summary ---
Author Organization [facility] Address [address] [place] [address] Phone Care Team Providers Care Plastic Dolls Mold Filler Name Role Phone Allie Chong NP Primary Care Provider [phone] Encounter Details Date Type Department Care Team (Late st Contact Info) Description 10/05/2024 Results Follow-Up [facility] Vascular Surgery [facility] [address] [place] [address] Malina Conley RN CTA Head Neck W WO Contrast Social History Tobacco Use Types Packs/Day Years [...] on file Legal 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
--- OUTSIDE RECORDS SUMMARY | 2024-11-29 10:52 | XMS_ITS | Encounter Summary ---
Author Organization [facility] Address [address] [place] [address] Care Team Providers Care Intelligence Operations Name Role Phone Dwayne Torres MD Primary Care Provider [phone] Encounter Details Date Type Department Care Team (Late st Contact Info) Description 11/22/[address] [facility] [address] [facility], [place] [address] Kassandra Maurice MD [address] [facility] [address] [place] [address] Social History Tobacco Use Types Packs/Day Years Used Date Smoking Tobacco: Former Smokeless Tobacco: Never Alcohol Use Standard Drinks/Week Comments Yes 1.7 (1 standard drink = 0.6 oz p ure alcohol) Comments Unknown Sex and Gender Information Value Date Recorded Sex Assigned at Not on file Legal Sex Female 6:[address]IO INSTALLER Gender Identity Not on file Sexual Orientation Not on file documented as of this encounter Plan of Treatment Not on file documented as of this encounter Procedures Procedure Name Priority Date/Time Associated Diagnosis Comments DERMATOPATH TECHNICAL REPORT Routine 11/21/2017 12:00 AM CDT documented in this encounter Results * DERMATOPATH TECHNICAL REPORT (11/21/2017 12:00 AM CDT) Case Report Dermatopathology Report Case: [id number] Authorizing Provider: Kassandra Maurice MD Collected: 11/21/2017 12:00 AM Pathologist: Shanika Cameron MD Received: 11/22/2017 06:13 AM Specimen: Skin, right shoulder 11:33 AM CDT DERMATOPATHOLOGY LABORATORY Clinical History Bx proven BCC. Prior Biopsy [id number]. Check margins. 11:33 AM T DERMATOPATHOLOGY LABORATORY Gross Description Specimen A: Received is one formalin filled container labeled with the patient's name and designated right shoulder.The specimen consists of an ellipse measuring [id number] and is oriented with the notch at [...] and submitted in cassettes 3-4. Jar 0. [facility] Dermatopathology Laboratory performed the technical component only. 11:33 AM T DERMATOPATHOLOGY LABORATORY Embedded Images 11:33 AM [facility] DERMATOPATHOLOGY LABORATORY DISCLAIMER An external and internal positive and negative controls are appropriate for the histochemical, immunohistochemical and immunofluorescence stain(s) in this case (if any), except where stated explicitly. The performance characteristics of the stain(s) cited in this report were developed and its performance characteristic determined by the Dermatopathology Laboratory at [facility]. These tests need not be, and therefore are not, approved by the [place] Food and Drug Administration. The tests are used for clinical purposes. 11:33 AM [facility] DERMATOPATHOLOGY LABORATORY at 1133 CDT Pathology/Cytolog y TISSUE SPECIMEN FROM SKIN / Unknown 11/21/2017 11/22/2017 6:13 AM CDT us Kassandra Maurice MD LAB - PATHOLOGY/CYTOLOGY ORD ERABLES Final Result DERMATOPATHOLOGY LABORATORY [facility] - Department of Dermatology [address] [facility], 5th [place] [address], [facility] [phone] documented in this encounter Visit Diagnoses Not on filedocumented in this encounter Care Teams Intelligence Operations Relationship Specialty Start Date End Date Dwayne Torres MD [address] [place] [phone] PCP - General 04/07/12 documented as of this encounter
[2024-11-29 19:58] LABS: Thyroid Stimulating Hormone 4.960 uIU/mL (0.465-4.680)
== END 2024-11-29 10:48 | disposition home or self-care (01) ==
LOC: ANHBWCLAB 10:47
PROVIDERS: PCP Nurse Practitioner Adult Health; Visit Provider Nurse Practitioner Adult Health
DX: E03.9 Hypothyroidism, unspecified (principal)
CPT/HCPCS: 36415; 84443

== ENCOUNTER 2025-01-09 10:23 | Outpatient (CLI) | payer MEDICARE, SELFPAY ==
--- OUTSIDE RECORDS SUMMARY | 2025-01-09 11:14 | XMS_ITS | Encounter Summary ---
Author Organization [facility] Address [address] [facility] [place] [address] Phone Care Team Providers Care Canoe Inspector Final Name Role Phone Dwayne Torres MD Primary Care Provider [phone] Troy Dunn MD Primary Care Provider [phone] Hussain Torres MD Unavailable Reason for Visit * Reason Comments Medication Refill Encounter Details Date Type Department Care Team (Late st Contact Info) Description 05/26/2021 Refill [facility] - Primary Care - [place] [address] [place] [address] Kelsi Reyes MD [address] [place] [address] Medication Refill Social History Tobacco Use Types Packs/Day Years Used Date Smoking Tobacco: Every Day Cigarettes Smokeless Tobacco: Never Comments No Sex and Gender Information Value Date Recorded Sex Assigned at Not on file Legal Sex Female 10:12 AM 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 Gender Identity Not on file Sexual Orientation Not on file documented as of this encounter Plan of Treatment Not on file documented as of this encounter Visit Diagnoses Not on filedocumented in this encounter Care Teams Canoe Inspector Final Relationship Specialty Start Date End Date Dwayne Torres MD [address] [place] [address] PCP - General Internal Medicine 05/21/19 12/27/22 Troy Dunn MD #2 [facility] [address] [place] [address] PCP - General Family Medicine 12/28/22 Hussain Torres MD #2 [facility] [address] [place] [address] Consulting Physician Colon and Rectal Surgery 04/12/23 documented as of this encounter
--- OUTSIDE RECORDS SUMMARY | 2025-01-09 11:15 | XMS_ITS | Encounter Summary ---
Author Organization [facility] Address [address] [facility] [place] [place] [address] Phone Care Team Providers Care Med Admin Name Role Phone Dwyane Torres MD Primary Care Provider [phone] Troy Dunn MD Primary Care Provider [phone] Hussain Torres MD Unavailable Reason for Visit * Reason Comments Medication Refill Encounter Details Date Type Department Care Team (Late st Contact Info) Description 01/12/[address] 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 Gender Identity Not on file Sexual Orientation Not on file documented as of this encounter Plan of Treatment Not on file documented as of this encounter Visit Diagnoses Not on filedocumented in this encounter Care Teams Med Admin Relationship Specialty Start Date End Date Dwayne Torres MD [address] [place] [address] PCP - General Internal Medicine 05/21/19 12/27/22 Troy Dunn MD #2 [facility] [address] [place] [address] PCP - General Family Medicine 12/28/22 Hussain Torres MD #2 [facility] [address] [place] [address] Consulting Physician Colon and Rectal Surgery 04/12/23 documented as of this encounter
--- OUTSIDE RECORDS SUMMARY | 2025-01-09 11:15 | XMS_ITS | Encounter Summary ---
Author Organization [facility] Address [address] [facility] [place] [address] Phone Care Team Providers Care Ham Stringer Name Role Phone Dwayne Torres MD Primary Care Provider [phone] Troy Dunn MD Primary Care Provider [phone] Hussain Torres MD Unavailable Reason for Visit * Reason Comments Medication Refill Encounter Details Date Type Department Care Team (Late st Contact Info) Description 05/22/2021 Refill [facility] - Primary Care - [place] [address] [place] [address] Kelis Reyes MD [address] [place] [address] Medication Refill Social History Tobacco Use Types Packs/Day Years Used Date Smoking Tobacco: Every Day Cigarettes Smokeless Tobacco: Never Comments No Sex and Gender Information Value Date Recorded Sex Assigned at Not on file Legal Sex Female 10:12 AM GRAPHITE DISK ASSEMBLER Gender Identity Not on file Sexual Orientation Not on file documented as of this encounter Miscellaneous Notes * Telephone Encounter - Yoko Dwyer RN - 05/22/2021 10:42 AM CST Pt pcp is Dwayne Torres MD HITE DISK ASSEMBLER documented in this encounter Plan of Treatment Not on file documented as of this encounter Visit Diagnoses Not on filedocumented in this encounter Care Teams Ham Stringer Relationship Specialty Start Date End Date Dwayne Torres MD [address] [place] [address] PCP - General Internal Medicine 05/21/19 12/27/22 Troy Dunn MD #2 [facility] [address] [place] [address] PCP - General Family Medicine 12/28/22 Hussain Torres MD #2 [facility] [address] [place] [address] Consulting Physician Colon and Rectal Surgery 04/12/23 documented as of this encounter
--- OUTSIDE RECORDS SUMMARY | 2025-01-09 11:15 | XMS_ITS | Clinical Summary ---
Author Organization [facility] Address [address] [place] [address] Care Team Providers Care Addiction Specialist Name Role Phone Dwayne Torres MD Primary Care Provider [phone] Source Comments [facility],non-[facility] Affiliates and Associated Physician Practices is amultiple site organization consisting of ambulatory clinics and hospital sitesin [place], [place], [place] and [place]. This disclosure is being madepursuant to the Care Everywhere program and may not contain all information available regarding this patient. 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
--- OUTSIDE RECORDS SUMMARY | 2025-01-09 11:15 | XMS_ITS | Encounter Summary ---
Author Organization [facility] Address [address] [place] [address] Phone Care Team Providers Care Wet Wash Assembler Name Role Phone Dwayne Torres MD Primary Care Provider [phone] Troy Dunn MD Primary Care Provider [phone] Hussain Torres MD Unavailable Reason for Visit * Reason Comments Medication Refill Encounter Details Date Type Department Care Team (Late st Contact Info) Description 11/01/2020 Refill [facility] - Primary Care - [place] [address] [place] [address] Ciera Munoz Anitha, PAC [address] [place] [address] Medication Refill Social History Tobacco Use Types Packs/Day Years Used Date Smoking Tobacco: Every Day Cigarettes Smokeless Tobacco: Never Comments No Sex and Gender Information Value Date Recorded Sex Assigned at Not on file Legal 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 Female 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
--- OUTSIDE RECORDS SUMMARY | 2025-01-09 11:15 | XMS_ITS | Clinical Summary ---
Author Organization [facility] [address] [facility] Address [address] [place] [address] Phone Care Team Providers Care Food Service Aide Name Role Phone Allie Chong NP Primary Care Provider [phone] Allergies No known active allergies Medications ezetimibe (ZETIA) 10 mg tabletIndications: hyperlipidemia Take 1 tablet (10 mg total) by mouth every morning 01/28/20 18 Active carvedilol (COREG) 12.5 mg tablet Take 1 tablet (12.5 mg total) by mouth 2 (two) times a day with meals. 60 tablet 03/14/20 18 Active Additional Information Patient taking differently:12.5 mg oral 2 times daily with meals (bkfst, dinner),Indications: hypertension, Reported on 10/26/2024 rosuvastatin (CRESTOR) 20 mg tablet Take 1 tablet (20 mg total) by mouth daily. 30 tablet 03/15/20 18 Active Additional Information Patient taking differently:20 mg oralEvery morning, Indications: coronary artery disease, hyperlipidemia, Reported on 10/26/2024 clopidogrel (PLAVIX) 75 mg tabletIndications: myocardial infarction prevention Take 1 tablet (75 mg total) by mouth daily. 30 tablet 03/15/20 18 Active Additional Information Patient taking differently:75 mg oralDaily (early AM), Indications: Thrombosis Prevention after PCI, Reported on 11/05/[address] (CYMBALTA) 60 mg capsuleIndications :Chronic Musculoskeletal Pain Take 1 capsule (60 mg total) by mouth nightly. 30 capsule 03/14/20 18 Active Additional Information Patient taking differently:60 mg oral Nightly,Indications: Anxiety with Depression, Chronic Musculoskeletal Pain, Reported on 10/26/2024 losartan (COZAAR) 100 mg tablet Take 1 tablet (100 mg total) by mouth daily 07/28/19 25 2025 Active Additional Information Patient taking differently:100 mg oralEvery morning, Indications: hypertension, Informant: Self, Reported on 11/05/2024 levothyroxine (SYNTHROID) 50 mcg tabletIndications: hypothyroidism Take 1 tablet (50 mcg total) by mouth every morning 10/09/19 25 Active aspirin 325 mg tabletIndications: Cerebral Thromboembolism Prevention Take 1 tablet (325 mg total) by mouth every morning TIA 06/2024 Active meclizine (ANTIVERT) 25 mg tablet Take 1 tablet (25 mg total) by mouth 3 (three) times a day as needed for dizziness or nausea 03/22/20 24 Active nitroglycerin (NITROSTAT) 0.[address] 1 tablet (0.3 mg total) under the tongue as directed DISSOLVE ONE TABLET UNDER THE TONGUE EVERY 5 MINUTES NEEDED FOR CHEST PAIN. DO NOT EXCEED A TOTAL OF 3 DOSES IN 15 MINUTES 11/25/19 24 Active calcium citrate-vitamin D3 200 mg-6.25 mcg (250 unit) tablet Take 1 tablet by mouth every morning Supplement Active acetaminophen (TYLENOL) 325 mg tablet Take 2 tablets (650 mg total) by mouth as needed for pain Active Active Problems Problem Noted Date Diagnosed Date Subclavian steal syndrome of right subclavian ar amber 10/19/2024 Stroke-like episode 07/30/2024 Sinus bradycardia 07/26/2024 Hypertriglyceridemia 07/26/2024 Acute ischemic right frontal stroke 07/25/2024 07/25/2024 Occlusion of right common carotid artery 025 07/25/2024 Dyslipidemia, goal LDL below 70 07/25/2024 CAD (coronary artery disease) 07/25/2024 Rheumatoid arthritis of [facility] with negative rheumatoid factor 03/17/2018 [...] joint. Assessment & Plan (03/17/2018 4:57 PM SNACK BAR ATTENDANT): This is based on pain and stiffness [...] 03/13/2018 Assessment & Plan (03/14/2018 4:46 PM SNACK BAR ATTENDANT): History of hypertension - Continue home losartan, carvedilol Assessment & Plan (03/13/2018 11:41 PM SNACK BAR ATTENDANT): History of hypertension - Continue home losartan, carvedilol Pyelonephritis 03/03/2018 Assessment & Plan (03/14/2018 4:46 PM SNACK BAR ATTENDANT): Patient presents with stabbing back pain, CVA tenderness, UA with 21-[address] shows large stone in R kidney, bilateral hydronephrosis, fat stranding. Lactate negative. - Discharge with 14-day course of Bactrim 800-160 PO BID - Outpatient Urology followup for nephrolithiasis Assessment & Plan (03/13/2018 11:40 PM SNACK BAR ATTENDANT): Patient presents with stabbing back pain, CVA [...] examination Assessment & Plan (03/14/2018 4:46 PM SNACK BAR ATTENDANT): Patient has a history of polyarthralgia, affecting multiple joints. - Continue Duloxetine - PRN Tylenol - PRN Ibuprofen Assessment & Plan (03/13/2018 11:40 PM SNACK BAR ATTENDANT): Patient has a history of polyarthralgia, affecting [...] Encounters Date Type Department Care Team Description 12/27/2024 Telephone [facility] Medicine Vascular Surgery [address] [facility] Medical Office Building [address] [place] [address] Gerardo Melissa MD 11/26/2024 Telephone [facility] Medicine Surgery [address] [facility] Floor 1 [place] [address] Gerardo Melissa MD 11/07/2024 Telephone [facility] Medicine Surgery [address] [facility] Floor 1 [place] [address] Gerardo Melissa MD 11/06/2024 Telephone [facility] [address] [place] [address] Office Building [address] [place] [address] Gerardo Melissa MD 11/05/2024 8:00 AM CDT - 11/05/2024 9:40 AM CDT Surgery [facility] 1 [place] [address] Mitch Remy MD PhD LEFT HEART CATHETERIZATION WITH CORONARY ANGIOGRAPHY AND WITH OR WITHOUT LEFT VENTRICULOGRAM [id number] 11/05/2024 6:19 AM CDT - 11/05/2024 1:26 PM CDT [facility] Heart [facility] Vascular [place] 1 [place] [address] Mitch Remy MD PhD Acute ischemic stroke (HCC) [I63.9] (Primary Dx); 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; Status post insertion of drug eluting coronary artery stent Discharge Disposition: Discharge to home or self care 11/05/2024 Telephone [facility] [address] [facility] 8th [place] [address] [place] [address] Mitch Remy MD PhD 11/01/2024 Orders Only [facility] [address] [facility] 8th Floor [address] Room [address] [place] [address] Maximiliano Dunbar MD 11/01/2024 Orders Only [facility] [address] [facility] 8th Floor [address] Room [address] [place] [address] Maximiliano Dunbar MD 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 (Primary Dx) 10/30/2024 Telephone [facility] [address] [facility] Office Building [address] [place] [address] Gerardo Melissa MD 10/26/2024 3:30 PM CDT Pre-Admission Testing [facility] Center for Preoperative Assessment and Planning [place] [facility] ([facility]) [address] [place] [id number] Preoperative testing (Primary Dx); Cerebrovascular accident (CVA), unspecified mechanism (HCC) 10/26/2024 1:34 PM CDT - 10/26/2024 11:59 PM CDT Hospital Encounter [facility] [address] [place] [phone] Occlusion of right common carotid artery; Acute ischemic stroke (HCC) Discharge Disposition: Discharge to home or self care 10/18/2024 Telephone [facility] [address] [place] [address] Office [facility] [address] [place] [address] Gerardo Melissa MD 10/18/2024 Orders Only [facility] [address] [place] [address] Office [facility] [address] [place] [address] Gerardo Melissa MD Occlusion of right common carotid artery (Primary Dx); Acute ischemic stroke (HCC) 10/16/2024 1:00 PM CDT Office Visit [facility] [address] [place] [address] Office [facility] [address] [place] [address] Gerardo Melissa MD Occlusion of right common carotid artery (Primary Dx); Acute ischemic right frontal stroke (HCC) from Last 3 Months Immunizations Immunization Administration Dates Next Due Influenza, Quadrivalent, Spl it, Preservative Free, Intramuscular 03/14/2018 Surgical History Surgery Date Site/Laterality Comments NEPHROSTOMY CARDIAC CATHETERIZATION CORONARY ARTERY BYPASS GRAFT HYSTERECTOMY SECTION x2 (1977 and 1978) CHOLECYSTECTOMY APPENDECTOMY CARDIAC CATHETERIZATION 11/05/2024 Left Procedure: LEFT HEART CATHETERIZATION WITH CORONARY ANGIOGRAPHY AND WITH OR WITHOUT LEFT VENTRICULOGRAM [id number]; Surgeon: Mitch Remy MD PhD; Location: [facility]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; Service: Cardiovascular; Laterality: Left; Medical devices from [...] on file Legal Sex Female 12:36 AM SNACK BAR ATTENDANT Gender Identity Not on file Sexual Orientation [...] 11/05/2024 6:40 AM CDT Plan of Treatment Upcoming Encounters Date Type Department Care Team (Latest Contact Info) Description 01/28/2025 8:30 AM CDT Hospital Encounter [facility] Operating Room 1 [place] [address] Gerardo Melissa MD [id number] [place] [address] 01/28/2025 8:30 AM CDT Anesthesia Event [facility] Operating Room 1 [place] [phone] Petrona Londono, MILLER HEAD ASSISTANT WET PROCESS [address] [facility] [phone] [place] [address] 01/28/2025 8:30 AM CDT - 01/28/2025 4:50 PM CDT Surgery [facility] Operating Room 1 [place] [address] Gerardo Melissa MD [id number] [place] [address] (COMBO: EDWARDO/ANTOINETTE) BYPASS GRAFT - CAROTID SUBCLAVIAN - ascending aorta to carotid artery bypass Scheduled Procedures Name Priority Associated Diagnoses Date/Ti me BYPASS GRAFT - CAROTID SUBCLAVIAN 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 01/28/2025 8:30 AM CDT REDO STERNOTOMY 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 01/28/2025 8:30 AM CDT BYPASS - CAROTID SUBCLAVIAN 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 01/28/2025 8:30 AM CDT Health Maintenance Due Date Last Done Comments Breast Cancer Screening-Mammogram 1955 Colon Cancer Screening-Colonoscopy 1955 DTaP/Tdap/Td Vaccine (1 - Tdap) 09/21/1967 Hepatitis B Screening 1974 Zoster Vaccine (1 of 2) 2006 Well Visit 65+ 2021 Osteoporosis Screening-Bone Density Scan 01/09/2024 01/08/2022 Covid-19 Vaccine (3 - 2024-2 6 season) 2024 12/11/2020, 11/20/2020 Influenza Vaccine (#1) 2024 , 04/28/2023, 02/14/2020, Additional history exists Depression Screening 07/25/2025 07/25/2024 Fall Risk Assessment 11/05/2025 11/05/2024 Hepatitis C Screening Completed 03/03/2018 Pneumococcal vaccine 65+ Completed 04/28/2023, 01/30 Goals Goal Patient Goal Type Associated Problems Recent Progress Patient-Stated? Author Autogenerat ed Goal Care Plan Autogenerated Problem Caryn Huffman, RN Medical Devices Implanted Type Area Medical Services Assistant Device Identifier Shelf Expiration Date Model / Serial / Lot [employer] Leatha Angio-Seal Vip 6fr Closere Device [id number] - [id number] - [id number] Implanted:Qty : 1 on 11/05/2024 by Mitch Remy MD PhD at [facility] Collagen Right: Femoral [employer] Leatha 05/15/2025 [id number] / [id number] / [id number] Medtronic Card Vasc Surgery 2.25 X 18mm Claudia Jessamine Rx Coronary Stent [id number] - [id number] - [id number] Implanted:Qty : 1 on 11/05/2024 by Mitch Remy MD PhD at [facility] Stent Left: Anterior Descending Cornary Artery Medtronic Card Vasc Surgery 06/05/2027 [id number] / [id number] / [id number] Medtronic Card Vasc Surgery 3.0 X 30mm [place] Jessamine Rx Coronary Stent [id number] - [id number] Implanted:Qty : 1 on 11/05/2024 by Mitch Remy MD PhD at [facility] Stent Left: Anterior Descending Cornary Artery Medtronic Card Vasc Surgery 04/01/2027 [id number] / [id number] / [id number] Procedures Procedure Name Priority Date/Time Associated Diagnosis [...] common carotid artery Acute ischemic stroke (HCC) HEPATITIS C AB W/REFL TO HCV RNA, [...] NP LAB BLOOD ORDERABLES F inal Result KRISTIE [facility] Department [place] [address] * (ABNORMAL) Differential, auto (11/05/2024 12:03 PM CDT) Neutrophil abs 4.90 1.50 - 6.50 K/cumm Imm gran abs 0.06 0.00 - 0.10 K/cumm [facility] Lymphocyte abs 4.01(H) 0.80 - 3.30 K/cumm [facility] Monocyte abs 0.93(H) 0.20 - 0.80 K/cumm [facility] Eosinophil abs 0.35 0.00 - 0.50 K/cumm [facility] Basophil abs 0.08 0.00 - 0.10 K/cumm [facility] Neutrophil pct 47.4 % [facility] Comment: Interpretive Data Percent cell count reference ranges are not reported, since discordance with absolute values may lead to misinterpretation of CBC data. Current Interpretive Data was last revised on 2017. Imm gran pct 0.6 % [facility] Comment: Interpretive Data Percent cell count reference ranges are not reported, since discordance with absolute values may lead to misinterpretation of CBC data. Current Interpretive Data was last revised on 2017. Lymphocyte pct 38.8 % [facility] Comment: Interpretive Data Percent cell count reference ranges are not reported, since discordance with absolute values may lead to misinterpretation of CBC data. Current Interpretive Data was last revised on 2017. Monocyte pct 9.0 % [facility] Comment: Interpretive Data Percent cell count reference ranges are not reported, since discordance with absolute values may lead to misinterpretation of CBC data. Current Interpretive Data was last revised on 2017. Eosinophil pct 3.4 % [facility] Comment: Interpretive Data Percent cell count reference ranges are not reported, since discordance with absolute values may lead to misinterpretation of CBC data. Current Interpretive Data was last revised on 2017. Basophil pct 0.8 % [facility] Comment: Interpretive Data Percent cell count reference ranges are not reported, since discordance with absolute values may lead to misinterpretation of CBC data. Current Interpretive Data was last revised on 2017. Blood 11/05/2024 12:0 3 PM CDT 11/05/2024 12:17 PM CDT Briana Stallings NP LAB BLOOD ORDERABLES F inal Result Performing Organization Address [facility] Co de Phone Number [facility] Department [place] [address] * (ABNORMAL) CBC with auto differential (11/05/2024 12:03 PM CDT) WBC 10.33(H) 3.80 - 9.90 K/cumm Hgb 11.5(L) 11.9 - 15.5 g/dL [facility] Hct 34.8(L) 35.6 - 45.5 % [facility] Plt 222 150 - 400 K/cumm [facility] MPV 10.7 9.1 - 12.3 fL [facility] RBC 3.81(L) 3.90 - 5.20 M/cumm [facility] MCV 91.3 81.3 - 96.4 fL [facility] MCH 30.2 27.1 - 33.3 pg [facility] MCHC 33.0 32.3 - 35.7 g/dL [facility] RDW CV 12.9 11.1 - 14.9 % [facility] RDW SD 43.2 35.7 - 48.1 fL [facility] NRBC abs 0.00 0.00 - 0.01 K/cumm [facility] Blood 11/05/2024 12:0 3 PM CDT 11/05/2024 12:17 PM CDT Briana Stallings NP LAB BLOOD ORDERABLES F inal Result Performing Organization Address [facility]/ZIP Co de Phone Number [facility] Department [place] [address] * Basic metabolic panel (11/05/2024 12:03 PM CDT) Sodium 142 135 - 145 mmol/L Potassium, pl 4.1 3.3 - 4.9 mmol/L [facility] Chloride 108 97 - 110 mmol/L [facility] CO2 25 22 - 32 mmol/L [facility] Anion gap 9 2 - 15 mmol/L [facility] BUN 11 6 - 25 mg/dL [facility] Creatinine 0.75 0.60 - 1.10 mg/dL [facility] Glucose 89 70 - 199 mg/dL [facility] Comment: Interpretive Data Fasting glucose [...] 2022. Calcium 8.5 8.5 - 10.3 mg/dL [facility] Blood 11/05/2024 12:0 3 PM CDT 11/05/2024 12:17 PM CDT us Briana Stallings MILLER HEAD ASSISTANT WET PROCESS LAB BLOOD ORDERABLES F inal Result [facility] Department [place] [address] * ECG 12 lead (11/05/2024 9:34 AM CDT) Ventricular Rate EKG/Min 71 BPM [facility] Atrial Rate 71 BPM [facility] MN-Interval (MSEC) 216 ms [facility] QRS-Interval (MSEC) 84 ms [facility] QT-Interval (MSEC) 448 ms [facility] QTc 486 ms [facility] P [place] 68 degrees [facility] R [place] 59 degrees [facility] T [place] 53 degrees [facility] Diagnosis Sinus rhythm with 1st degree A-V block Otherwise normal ECG When compared with ECG of 26-OCT-2024 15:48, PREVIOUS ECG IS PRESENT Confirmed by Terrance Carbajal MD ([id number]) on 11/05/2024 2:36:25 PM [facility] 11/05/2024 9:34 AM CDT 11/05/2024 2:36 PM CDT us Mitch Remy MD PhD ECG ORDERABLES Final Resu lt [facility] * LEFT HEART CATHETERIZATION WITH CORONARY ANGIOGRAPHY [...] technique. Angiography was performed with a 6 [place] JR4 and a 6 [place] EBU 3.5 guide catheter. Heparin was administered to maintain ACT of 300 seconds or greater. Angioplasty was performed with 0.014 in choice floppy wire and a TinderBox laser catheter. Three runs were made at 60/60, 70/70 pulse and fluence using a 50:50 mixture of contrast. Further predilatation performed with a 3 mm by 20 mm AngioSculpt balloon with 3 inflations performed up to 18 atmospheres. Intravascular ultrasound performed [place] osage tetlin eye catheter. The area was stented with 2.25 x 18 and 3030 mm claudia Jessamine drug-eluting stents post dilated with a 3.25 x 18 mm NC Sapphire up to 22 atmospheres. Upon completion of the case the right femoral artery sheath was removed area closed with a 6 [place] Angio-Seal. 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 After a large mid [...] 18 and 3.0 x 30 mm claudia Jessamine drug-eluting stents post dilated with a 3.25 NC balloon up to 22 atmospheres. This will, no dissection and KENNEDY 3 flow. Overall impression: 1. Marked restenosis of proximal and mid previously placed bare metal stents 2003 successfully retreated with laser angioplasty and over stenting with 2.25 x 18 and 3.0 x 30 claudia Jessamine stents post dilated to 3.25 mm. 2. [...] 281(H) 123 - 168 sec POC Performer [id number] [facility] POC Device Number [id number] [facility] Blood 11/05/2024 9:22 AM CDT 11/05/2024 9:22 AM CDT us Mitch Remy MD PhD LAB POCT ORDERABLES - SERVANDO CE Final Result Performing Organization Address [facility] Co de Phone Number [facility] Department [place] [address] * (ABNORMAL) POCT Activated clotting time, low range (11/05/2024 8:48 AM CDT) ACT 321(H) 123 - 168 sec POC Performer [id number] [facility] POC Device Number [id number] [facility] Blood 11/05/2024 8:48 AM CDT 11/05/2024 8:48 AM CDT us Mitch Remy MD PhD LAB POCT ORDERABLES - SERVANDO CE Final Result Performing Organization Address [facility] Co de Phone Number [facility] [place] [address] * TYPE AND SCREEN 14 DAY (10/26/2024 4:18 PM CDT) Pathologist [facility] ABO Rh B Positive Taiwo, indirect Negative [facility] Blood 10/26/2024 4:18 PM CDT 10/26/2024 4:47 PM CDT Narrative [facility] - 10/26/2024 5:41 PM CDT Has the patient had Daratumumab or Isatuximab in the past 6 months?->Unknown Is this test being ordered in advance for a procedure?->Yes Expected date of procedure:->11/14/24 Has the patient been transfused in the past 3 months?->No Has the patient been in the past 3 months?->No Karla Trevino LAB BLOOD BANK TEST ORDERABLE S Final Result Performing Organization Address [facility] Co de Phone Number [facility] Department [place] [address] * eGFR (10/26/2024 4:18 PM CDT) eGFR [...] CDT 10/26/2024 4:59 PM CDT Karla Trevino MILLER HEAD ASSISTANT WET PROCESS LAB BLOOD ORDERABLES Final Re sult Performing Organization Address [facility] Co de Phone Number [facility] [place] [address] * (ABNORMAL) Differential, auto (10/26/2024 4:18 PM CDT) Neutrophil abs 5.19 1.50 - 6.50 K/cumm Imm gran abs 0.03 0.00 - 0.10 K/cumm [facility] Lymphocyte abs 3.37(H) 0.80 - 3.30 K/cumm [facility] Monocyte abs 0.84(H) 0.20 - 0.80 K/cumm [facility] Eosinophil abs 0.29 0.00 - 0.50 K/cumm [facility] Basophil abs 0.08 0.00 - 0.10 K/cumm [facility] Neutrophil pct 52.9 % [facility] Comment: Interpretive Data Percent cell count reference ranges are not reported, since discordance with absolute values may lead to misinterpretation of CBC data. Current Interpretive Data was last revised on 2017. Imm gran pct 0.3 % [facility] Comment: Interpretive Data Percent cell count reference ranges are not reported, since discordance with absolute values may lead to misinterpretation of CBC data. Current Interpretive Data was last revised on 2017. Lymphocyte pct 34.4 % [facility] Comment: Interpretive Data Percent cell count reference ranges are not reported, since discordance with absolute values may lead to misinterpretation of CBC data. Current Interpretive Data was last revised on 2017. Monocyte pct 8.6 % [facility] Comment: Interpretive Data Percent cell count reference ranges are not reported, since discordance with absolute values may lead to misinterpretation of CBC data. Current Interpretive Data was last revised on 2017. Eosinophil pct 3.0 % [facility] Comment: Interpretive Data Percent cell count reference ranges are not reported, since discordance with absolute values may lead to misinterpretation of CBC data. Current Interpretive Data was last revised on 2017. Basophil pct 0.8 % [facility] Comment: Interpretive Data Percent cell count reference ranges are not reported, since discordance with absolute values may lead to misinterpretation of CBC data. Current Interpretive Data was last revised on 2017. Blood 10/26/2024 4:18 PM CDT 10/26/2024 4:59 PM CDT Karla Johnson Trevino MILLER HEAD ASSISTANT WET PROCESS LAB BLOOD ORDERABLES Final Re sult Performing Organization Address [facility] Co de Phone Number KRISTIE [facility] [address] * CPAP aPTT algorithm (10/26/2024 4:18 PM CDT) aPTT 35 28 - 38 sec Comment: Interpretive Data Heparin therapeutic range: 66.0 - 100.0 seconds. Range based on correlation with therapeutic heparin activity range of 0.3 - 0.7 Units/mL. Current interpretive data was last revised on 2023. Blood 10/26/2024 4:18 PM CDT 10/26/2024 4:18 PM CDT [facility] MILLER HEAD ASSISTANT WET PROCESS LAB BLOOD ORDERABLES Final Re sult Performing Organization Address [facility] de Phone Number KRISTIE MALCOLM [facility] [place] [address] * (ABNORMAL) Urinalysis reflex to microscopic and culture Urine, clean voided (10/26/2024 4:18 PM CDT) Color, ur Straw Yellow Clarity, ur Clear Clear [facility] Specific gravity, ur >1.042(H) 1.003 - 1.030 [facility] pH, urine 6.5 [facility] Comment: Interpretive Data U rine pH is affected by diet, medications, systemic acid-base disturbances, and renal tubular function. pH may affect urinary stone formation. For example, urine pH below 6.0 may help reduce the tendency for calcium phosphate stones and pH greater than 6.0 may reduce the tendency for uric acid stone formation. Source: [facility] Cocodrilo Dog Current Interpretive Data was last revised on 2017 Protein, ur ql Trace Negative [facility] Glucose, ur ql Negative Negative [facility] Ketones, ur Negative Negative [facility] Bilirubin, ur Negative Negative [facility] Blood, ur Negative Negative [facility] Urobilinogen, ur <2.0 <2.0 mg/dL [facility] Nitrite, ur Negative Negative [facility] Leukocyte esterase, ur Negative Negative [facility] UA reflex comment Reflex conditions for microscopic UA and culture not met. [facility] Urine, clean voided 10/26/2024 4:18 PM CDT 10/26/2024 4:42 PM CDT Karla Trevino MILLER HEAD ASSISTANT WET PROCESS LAB MICROBIOLOGY - GENERAL OR DERABLES Final Result Performing Organization Address [facility] Co de Phone Number [facility] Department [place] [address] * CBC with auto differential (10/26/2024 4:18 PM CDT) WBC 9.80 3.80 - 9.90 K/cumm Hgb 12.2 11.9 - 15.5 g/dL [facility] Hct 37.5 35.6 - 45.5 % [facility] Plt 276 150 - 400 K/cumm [facility] MPV 10.5 9.1 - 12.3 fL [facility] RBC 4.07 3.90 - 5.20 M/cumm [facility] MCV 92.1 81.3 - 96.4 fL [facility] MCH 30.0 27.1 - 33.3 pg [facility] MCHC 32.5 32.3 - 35.7 g/dL [facility] RDW CV 13.2 11.1 - 14.9 % [facility] RDW SD 44.7 35.7 - 48.1 fL [facility] NRBC abs 0.00 0.00 - 0.01 K/cumm [facility] Blood 10/26/2024 4:18 PM CDT 10/26/2024 4:59 PM CDT Karla Trevino MILLER HEAD ASSISTANT WET PROCESS LAB BLOOD ORDERABLES Final Re sult Performing Organization Address [facility]/ZIP Co de Phone Number [facility] Department [place] [address] * Protime-INR (10/26/2024 4:18 PM CDT) PT 10.3 9.7 - 13.0 sec INR 0.95 0.90 - 1.20 [facility] Comment: Interpretive data Oral anticoagulant therapeutic ranges: Venous thromboembolism prophylaxis or treatment: 2.0-3.0 CARDIOLOGY Standard range: 2.0-3.0 High-intensity range: 2.5-3.5 Refer to indication-specific guidelines for appropriate target ranges for prosthetic heart valve replacement. Current interpretive data was last revised on 2019. Blood 10/26/2024 4:18 PM CDT 10/26/2024 4:18 PM CDT Karla Trevino NP LAB BLOOD ORDERABLES Final Re sult [facility] Department [place] [address] * Comprehensive metabolic panel (10/26/2024 4:18 PM CDT) Sodium 140 135 - 145 mmol/L Potassium, pl 4.8 3.3 - 4.9 mmol/L [facility] Chloride 102 97 - 110 mmol/L [facility] CO2 27 22 - 32 mmol/L [facility] Anion gap 11 2 - 15 mmol/L [facility] BUN 18 6 - 25 mg/dL [facility] Creatinine 0.89 0.60 - 1.10 mg/dL [facility] Glucose 95 70 - 199 mg/dL [facility] Comment: Interpretive Data Fasting glucose [...] 2022. Calcium 9.5 8.5 - 10.3 mg/dL [facility] Bilirubin, total 0.3 0.1 - 1.2 mg/dL [facility] Protein, pl 7.4 6.5 - 8.5 g/dL [facility] Albumin 4.5 3.5 - 5.0 g/dL [facility] Alk phos 93 40 - 130 Units/L [facility] ALT 20 7 - 45 Units/L [facility] AST 25 10 - 45 Units/L [facility] Blood 10/26/2024 4:18 PM CDT 10/26/2024 4:59 PM CDT Karla Trevino MILLER HEAD ASSISTANT WET PROCESS LAB BLOOD ORDERABLES Final Re sult [facility] Department [place] [address] * ECG 12 lead (10/26/2024 3:48 PM CDT) Ventricular Rate EKG/Min 54 BPM [facility] Atrial Rate 54 BPM [facility] MN-Interval (MSEC) 202 ms [facility] QRS-Interval (MSEC) 90 ms [facility] QT-Interval (MSEC) 470 ms [facility] QTc 445 ms [facility] P [place] 75 degrees [facility] R [place] 61 degrees [facility] T [place] 72 degrees [facility] Diagnosis Sinus bradycardia Otherwise normal ECG No previous ECGs available Confirmed by Terrance Carbajal MD ([id number]) on 10/29/2024 4:23:39 PM [facility] 10/26/2024 3:48 PM CDT 10/29/2024 4:23 PM CDT Karla Trevino MILLER HEAD ASSISTANT WET PROCESS ECG ORDERABLES Final Result [facility] * CTA Chest W WO Contrast (10/26/2024 [...] IMG CT PROCEDURES Final Resul t * HEPATITIS [...] file for you. Please contact a client advisor if you would like additional testing done on this patient or contact your technical sales director to obtain a client custom reflex testing authorization request form. SIGNAL TO CUT-OFF 0.01 <1.00 [facility] [place] Blood specimen (specimen) 03/03/2018 10:07 AM CDT 03/03/2018 10:08 AM CDT Narrative Resulting Agency Comment Performing Organization Information: Site ID: [place] Name: [facility] Address: [address] [place] [address] [place] Gu[place] [id number] Director: Kendall Marsh D.O., MPH Hunter Schwartz MD LAB BLOOD ORDERABLES Fin al Result [facility] [place] Gu[place] from Last 3 Months or Most Recently Relevant to Health Maintenance Additional Health Concerns Active Problems Noted Date Diagnosed Date Autogenerated Problem 12/03/2024 [place] [address] [address] A[employer] MEDICARE GOLD [facility] Address: [address] [place] [address] [address] [place] [address] [facility] AET[employer] MEDICARE GOLD Advance Directives For more information, please contact: [phone] * Full Code (Latest Code Status on File) Date Activated Date Inactivated Comments 11/05/2024 10:22 AM 11/05/2024 5:31 PM * Full Code Date Activated Date Inactivated Comments 07/25/2024 6:39 PM 07/26/2024 10:29 PM * Full Code Date Activated Date Inactivated Comments 03/13/2018 2:33 PM 03/14/2018 10:36 PM Care Teams Food Service Aide Relationship Specialty Start Date End Date Allie Chong NP [address] [place] [id number] PCP - General Nurse Practitioner 07/26/24
--- OUTSIDE RECORDS SUMMARY | 2025-01-09 11:15 | XMS_ITS | Encounter Summary ---
Author Organization [facility] Address [address] [facility] [place] [address] Phone Care Team Providers Care Test Cell Technician Name Role Phone Troy Dunn MD Primary Care Provider [phone] Hussain Torres MD Unavailable Reason for Visit * Reason Comments Medication Refill Encounter Details Date Type Department Care Team (Late st Contact Info) Description 09/30/2023 Refill [facility] - Family Medicine [facility] [address] [place] [address] Troy Dunn MD #[address] [address] Medication Refill Social History Tobacco Use Types Packs/Day Years Used Date Smoking Tobacco: Former Cigarettes 1 53.2 1 971 - 07/25/2023 Smokeless Tobacco: Never Comments:Quit for 18 years i n between Alcohol Use Standard Drinks/Week Comments Not Currently 0 (1 standard drink = 0.6 oz pur e alcohol) [facility] Utilities Answer Date Recorded In the past 12 months has [employer] electric, gas, oil, or water company threatened to shut off services in your home? No 04/28/2023 Social Connection and Isolation Panel Answer Date Recorded In a typical week, how many times do you talk on the phone with family, friends, or neighbors? Twice a week 04/28/2023 Frequency of Social Gatherings with Friends and Family Not on file 04/28/2023 Attends Nondenominational Services Not on file 04/28 Active Member [...] Total Score - Questions 1-9 [address] 08/01 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 [place] Showing recent visits within past 365 [...] [place] 12/28/22 Office Visit Troy Dunn MD [facility] Mushtaq Showing recent visits within past 365 [...] documented as of this encounter Care Teams Test Cell Technician Relationship Specialty Start Date End Date Troy Dunn MD #2 [facility] [address] [place] [address] PCP - General Family Medicine 12/28/22 Hussain Torres MD #2 [facility] [address] [place] [address] Consulting Physician Colon and Rectal Surgery 04/12/23 documented as of this encounter
--- OUTSIDE RECORDS SUMMARY | 2025-01-09 11:15 | XMS_ITS | Encounter Summary ---
Author Organization [facility] Address [address] [facility] [place] [address] Phone Care Team Providers Care Founder And President Name Role Phone Dwayne Torres MD Primary Care Provider [phone] Troy Dunn MD Primary Care Provider [phone] Hussain Torres MD Unavailable Reason for Visit * Reason Comments Medication Refill Encounter Details Date Type Department Care Team (Late st Contact Info) Description 05/20/2021 Refill [facility] - Primary Care - [place] [address] [place] [address] Kelsi Reyes MD [address] [place] [address] Medication Refill Social History Tobacco Use Types Packs/Day Years Used Date Smoking Tobacco: Every Day Cigarettes Smokeless Tobacco: Never Comments No Sex and Gender Information Value Date Recorded Sex Assigned at Not on file 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 KILN AND RECAUSTICIZING OPERATOR documented in this encounter Plan of Treatment Not on file documented as of this encounter Visit Diagnoses Not on filedocumented in this encounter Care Teams Founder And President Relationship Specialty Start Date End Date Dwayne Torres MD [address] [place] [address] PCP - General Internal Medicine 05/21/19 12/27/22 Troy Dunn MD #2 [facility] [address] [place] [address] PCP - General Family Medicine 12/28/22 Hussain Torres MD #2 [facility] [address] [place] [address] Consulting Physician Colon and Rectal Surgery 04/12/23 documented as of this encounter
--- OUTSIDE RECORDS SUMMARY | 2025-01-09 11:15 | XMS_ITS | Encounter Summary ---
Author Organization [facility] Address [address] [place] [address] Phone Care Team Providers Care Tennis Professional Name Role Phone Allie Chong NP Primary Care Provider [phone] Encounter Details Date Type Department Care Team (Late st Contact Info) Description 08/02/2024 Telephone 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 [id number] [place] [address] 01/28/2025 8:30 AM CDT Anesthesia Event [facility] Operating Room [address] [place] [address] Petrona Londono, RADHA [address] [facility] [phone] [place] [address] 01/28/2025 8:30 AM CDT - 01/28/2025 4:50 PM CDT Surgery [facility] Operating Room [address] [place] [address] Gerardo Melissa MD [address] [facility] [id number] [place] [address] (COMBO: EDWARDO/ANTOINETTE) BYPASS GRAFT - CAROTID SUBCLAVIAN [...] right subclavian artery 01/28/2025 8:30 AM CDT documented as of this encounter Visit Diagnoses Not on filedocumented in this encounter Care Teams Tennis Professional Relationship Specialty Start Date End Date Allie Chong NP [address] [place] [address] PCP - General Nurse Practitioner 07/26/24 documented as of this encounter
--- OUTSIDE RECORDS SUMMARY | 2025-01-09 11:15 | XMS_ITS | Encounter Summary ---
Author Organization [facility] Address [address] [facility] [place] [address] Phone Care Team Providers Care Political Consultant Name Role Phone Troy Dunn MD Primary Care Provider [phone] Hussain Torres MD Unavailable Reason for Visit * Reason Comments Medication Refill Encounter Details Date Type Department Care Team (Late st Contact Info) Description 01/09/2024 Refill [facility] #2 [place] [address] Troy Dunn MD #[address] [address] Medication Refill Social History Tobacco Use Types Packs/Day Years Used Date Smoking Tobacco: Former Cigarettes 1 53.2 1 971 - 07/25/2023 Smokeless Tobacco: Never Comments:Quit for 18 years i n between Alcohol Use Standard Drinks/Week Comments Not Currently 0 (1 standard drink = 0.6 oz pur e alcohol) [facility] Utilities Answer Date Recorded In the past 12 months has [employer] electric, gas, oil, or water company threatened to shut off services in your home? No 04/28/2023 Social Connection and Isolation Panel Answer Date Recorded In a typical week, how many times do you talk on the phone with family, friends, or neighbors? 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
--- OUTSIDE RECORDS SUMMARY | 2025-01-09 11:15 | XMS_ITS | Encounter Summary ---
Author Organization [facility] Address [address] [facility] [place] [address] Phone Care Team Providers Care Global Manager Name Role Phone Dwayne Torres MD Primary Care Provider [phone] Troy Dunn MD Primary Care Provider [phone] Hussain Torres MD Unavailable Reason for Visit * Reason Comments Medication Refill Encounter Details Date Type Department Care Team (Late st Contact Info) Description 04/10/2021 Refill [facility] - Primary Care - [place] [address] [place] [address] Kelsi Reyes MD [address] [place] [address] Medication Refill Social History Tobacco Use Types Packs/Day Years Used Date Smoking Tobacco: Every Day Cigarettes Smokeless Tobacco: Never Comments No Sex and Gender Information Value Date Recorded Sex Assigned at Not on file 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 Gender Identity Not on file Sexual Orientation Not on file documented as of this encounter Plan of Treatment Not on file documented as of this encounter Visit Diagnoses Not on filedocumented in this encounter Care Teams Global Manager Relationship Specialty Start Date End Date Dwayne Torres MD [address] [place] [address] PCP - General Internal Medicine 05/21/19 12/27/22 Troy Dunn MD #2 [facility] [address] [place] [address] PCP - General Family Medicine 12/28/22 Hussain Torres MD #2 [facility] [address] [place] [address] Consulting Physician Colon and Rectal Surgery 04/12/23 documented as of this encounter
--- OUTSIDE RECORDS SUMMARY | 2025-01-09 11:15 | XMS_ITS | Clinical Summary ---
Author Organization [facility] Address [address] [place] [address] Phone Care Team Providers Care Telephone Operator Chief Name Role Phone Troy Dunn MD Primary Care Provider [phone] Hussain Torres MD Unavailable Allergies No known [...] Description 10/20/2024 Refill [facility] #2 [place] [address] Troy Dunn MD Medication Refill from Last 3 Months Immunizations Immunization Administration Dates Next Due Covid-19, Mrna, Lnp-s, Pf, 3 0 Mcg/0.3 Ml Dose (Pfizer) 12/11/2020,11/20/2020 Influenza Vaccine less than 3 yrs 02/07/2024 Influenza Vaccine, Quadrivalent, PF 04/28/2023,1 ,03/14/2018 Influenza, Intradermal, Quad rivalent, Preservative Free 03/14/2018 Pneumococcal Vaccine Adult - 23 Valent 0 Pneumococcal conjugate PCV20 , polysaccharide [id number] conjugate, adjuvant, PF 04/28/2023 Family History Medical [...] drink = 0.6 oz pur e alcohol) [facility] Utilities Answer Date Recorded In the [...] and Family Not on file 04/28/2023 Attends Yazidism Services Not on file 04/28 Active Member [...] Total Score - Questions 1-9 0 08/01 [facility] Occupat ional [facility] - [...] on file 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 ARCH [id number] B 12/28/2022 9:07 PM CDT [facility] Comment: Signal/Cutoff ratio < 0.79 is Nondetected Signal/Cutoff ratio 0.80-0.99 is Grayzone Signal/Cutoff ratio > 0.99 is Detected Supplemental assays are recommended if signal/cutoff ratio is >/=1.00. Signal/cutoff ratio result >/= 5.00 is 97% predictive of positivity for recombinant immunoblot assay (RIBA) and will be reported to the [place] Department of Public Health as required. Blood Venipuncture / Unknown 12/28/2022 11:27 AM CDT 12/28/2022 11:27 AM CDT us Troy Dunn MD CHEMISTRY ORDERABLES Final Re sult [facility] [address] [place] [address], [place] from Last 3 Months or Most Recently Relevant to Health Maintenance [place] [address] MEDICARE C [employer] Care Teams Telephone Operator Chief Relationship Specialty Start Date End Date Troy Dunn MD #2 [facility] [address] [place] [address] PCP - General Family Medicine 12/28/22 Hussain Torres MD #2 [facility] [address] [place] [address] Consulting Physician Colon and Rectal Surgery 04/12/23
--- OUTSIDE RECORDS SUMMARY | 2025-01-09 11:15 | XMS_ITS | Encounter Summary ---
Author Organization [facility] Health Address [address] [place] [address] Care Team Providers Care Supervisor Brooder Farm Name Role Phone Dwayne Torres MD Primary Care Provider [phone] Encounter Details Date Type Department Care Team (Late st Contact Info) Description 11/22/2017 Lab Requisition [facility] Care DermPath Lab [address] [facility] [place] [phone] Kassandra Maurice MD [address] 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 Gender Identity Not on file Sexual Orientation Not on file documented as of this encounter Plan of Treatment Not on file documented as of this encounter Procedures Procedure Name Priority Date/Time Associated Diagnosis Comments DERMATOPATH TECHNICAL REPORT Routine 11/21/2017 12:00 AM CDT documented in this encounter Results * DERMATOPATH TECHNICAL REPORT (11/21/2017 12:00 AM CDT) Case Report Dermatopathology Report Case: [id number] Authorizing Provider: Kassandra Maurice MD Collected: 11/21/2017 12:00 AM Pathologist: Shanika Cameron MD Received: 11/22/2017 06:13 AM Specimen: Skin, right shoulder 11:33 AM CDT DERMATOPATHOLOGY LABORATORY Clinical History Bx proven BCC. Prior Biopsy [id number]. Check margins. 11:33 AM T DERMATOPATHOLOGY LABORATORY Gross Description Specimen A: Received is one formalin filled container labeled with the patient's name and designated right shoulder.The specimen consists of an ellipse measuring [id number] and is oriented with the notch at [...] and submitted in cassettes 3-4. Jar 0. [facility] Dermatopathology Laboratory performed the technical component only. 11:33 AM T DERMATOPATHOLOGY LABORATORY Embedded Images 11:33 AM [facility] DERMATOPATHOLOGY LABORATORY DISCLAIMER An external and internal positive and negative controls are appropriate for the histochemical, immunohistochemical and immunofluorescence stain(s) in this case (if any), except where stated explicitly. The performance characteristics of the stain(s) cited in this report were developed and its performance characteristic determined by the Dermatopathology Laboratory at [facility]. These tests need not be, and therefore are not, approved by the [place] Food and Drug Administration. The tests are used for clinical purposes. 11:33 AM [facility] DERMATOPATHOLOGY LABORATORY at 1133 CDT Pathology/Cytolog y TISSUE SPECIMEN FROM SKIN / Unknown 11/21/2017 11/22/2017 6:13 AM CDT us Kassandra Maurice MD LAB - PATHOLOGY/CYTOLOGY ORD ERABLES Final Result DERMATOPATHOLOGY LABORATORY [facility] - Department of Dermatology [address] [place] [address], [facility] [phone] documented in this encounter Visit Diagnoses Not on filedocumented in this encounter Care Teams Supervisor Brooder Farm Relationship Specialty Start Date End Date Dwayne Torres MD [address] [place] [phone] PCP - General 04/07/12 documented as of this encounter
[2025-01-09 19:12] LABS: Alanine Aminotransferase 18 U/L (6-35); Albumin Level 4.3 g/dL (3.5-5.1); Alkaline Phosphatase 88 U/L (38-126); Anion Gap 7 mmol/L (4-12); Aspartate Amino Transferase 51 U/L (14-36); Bilirubin,Total 0.3 mg/dL (0.2-1.3); Blood Urea Nitrogen 11 mg/dL (7-17); Calcium 9.3 mg/dL (8.4-10.2); Carbon Dioxide 27 mmol/L (22-30); Chloride 104 mmol/L (98-107); Cholesterol 161 mg/dL (0-200); Estimated Glomerular Filt Rate > 60; Glucose 91 mg/dL (65-110); HDL Direct 50 mg/dL; Potassium 4.6 mmol/L (3.4-5.0); Sodium 138 mmol/L (137-145); Total Protein 7.4 g/dL (6.3-8.2); Triglycerides 236 mg/dL (<150)
[2025-01-09 19:15] LABS: Hematocrit 37.8 % (37.0-47.0); Hemoglobin 11.4 g/dL (12.0-15.0); Mean Corpuscular HGB Conc 30.2 g/dl (32-36); Mean Corpuscular Hemoglobin 29.6 pg (26-34); Mean Corpuscular Volume 98.2 fl (80-100); Platelet Count Result 242 k/mm3 (150-375); Red Blood Count 3.85 M/mm3 (4.2-5.4); White Blood Count 10.4 K/mm3 (4.5-10.0)
[2025-01-09 19:48] LABS: Thyroid Stimulating Hormone 4.560 uIU/mL (0.465-4.680)
[2025-01-10 01:29] LABS: Add Urine Microscopic? YES; Appearance Urine Clear (Clear); Glucose Urine UA Negative (Negative); Leukocyte Esterase Ur Trace LEU/UL (Negative); Nitrate Urine Negative (Negative); Non Pathogenic Casts 0-2; Specific Grav Ur 1.010 (1.001-1.035)
== END 2025-01-09 10:24 | disposition home or self-care (01) ==
LOC: ANHBWCLAB 10:24
PROVIDERS: PCP Nurse Practitioner Adult Health; Visit Provider Nurse Practitioner Adult Health
DX: R39.9 Unspecified symptoms and signs involving the genitourinary system (principal); E03.9 Hypothyroidism, unspecified; I10 Essential (primary) hypertension
CPT/HCPCS: 36415; 80053; 80061; 81001; 84443; 85027; 87077; 87086; 87186

== ENCOUNTER 2025-02-19 14:22 | Outpatient (CLI) | payer MEDICARE, SELFPAY ==
--- OUTSIDE RECORDS SUMMARY | 2025-02-19 12:00 | XMS_ITS | Encounter Summary ---
Author Organization [facility] Healthcare Address [address] [place] [address] Care Team Providers Care Blender/Braze Applicator Name Role Phone Ernestomonroe Allie RADHA Primary Care Provider [phone] Reason for Visit * Auth/Cert (Routine) Specialty Diagnoses / Procedures Referred By Shama wyatt Referred To Contact Referral ID Status Reason Start Date Expiration Date Visits Re quested Visits Authorized [id number] 1 1 Encounter Details Date Type Department Care Team (Late st Contact Info) Description 02/19/2025 12:00 PM CDT Home Care Visit [address] [address] [address] [place] [address] Juliane Matt, OT OT HOME VISIT Social History Tobacco Use Types Packs/Day Years Used Date Smoking Tobacco: Former Cigarettes 1.4 33 1 976 - 2023 Passive Smoke Exposure: Past Smokeless Tobacco: Never Alcohol Use Standard Drinks/Week Comments Yes 0 (1 standard drink = 0.6 oz pur e alcohol) OASIS D0700: Social Isolation Answer Da te Recorded Frequency of experiencing loneliness or isolatio n Never 02/11/2025 OASIS A1250: Transportation Answer Date Recorded Lack of Transportation (Medical) No 02/11/2025 Lack of Transportation (Non-Medical) No 02/11/2025 Patient Unable or Declines to Respond No 02/11/2025 OASIS B1300: Health Literacy Answer Ilya e Recorded Frequency of needing help to read materials from doctor or pharmacy Never 02/11/2025 PHQ-2 Answer Date Recorded PHQ-2 Total Score (If total score is 3 or more points, staff should administer the PHQ-9) 0 07/26/2024 AUDIT-C Answer Date Recorded Q1: How often do you have a drink containing alc ohol? Monthly or less 01/24/2025 Q2: How many drinks containi ng alcohol do you have on a typical day when you are drinking? 1 or 2 01/24/2025 Q3: How often do you have si x or more drinks on one occasion? Never 01/24/2025 Personal Safety Answer Date Recorded Have you ever been in or are you currently in a harmful physical or emotional relationship or is someone making you feel afraid or unsafe? 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 02/12/2025 Active 1 goal linked to scheduled/documen grace intervention 1 goal intervention scheduled/documen grace in this visit Wound Care Disciplines: Core Disciplines Wound care needed 02/12/2025 Active 1 goal linked to scheduled/documen grace intervention 1 goal intervention scheduled/documen grace in this visit Wound Care Disciplines: Core Disciplines Wound care needed 02/12/2025 Active 1 goal linked to scheduled/documen grace intervention 1 goal intervention scheduled/documen grace in this visit Wound Care Disciplines: Core Disciplines Wound care needed 02/12/2025 Active 1 goal linked to scheduled/documen grace intervention 1 goal intervention scheduled/documen grace in this visit Monitor patient's vital signs every home health visit Disciplines: Skilled Disciplines, SN, PT, OT, MEDICAL SECRETARY, FIELD RESEARCH ASSOCIATE Monitor patient's vital signs every home health visit. 02/12/2025 Active 1 goal linked to scheduled/documen grace intervention 1 goal intervention scheduled/documen grace in this visit Infection Prevention Disciplines: Skilled Disciplines Infection Prevention 02/12/2025 Active 1 goal linked to scheduled/documen grace intervention 2 goal interventions scheduled/documen grace in this visit Fall Precautions/Safe ty Concerns Disciplines: Skilled Disciplines Fall precautions and general safety 02/12/2025 Active 1 goal linked to scheduled/documen grace intervention 1 goal intervention scheduled/documen grace in this visit Pain Disciplines: Core Disciplines Alteration in comfort 02/12/2025 Active 1 goal linked to scheduled/documen grace intervention 1 goal intervention scheduled/documen grace in this visit Goals Goal Associated Problem Outcome Goal Met? Visit Notes Knowledgeable of Wound Management Description: Patient/caregiver will be knowledgeable on management of wound and when to seek medical attention as evidenced by progressive wound healing and patient/caregiver ability to verbalize signs and symptoms to report to physician or Home Health Agency. Patien t will remain free of infection and able to recognize signs of infection as long as alteration in skin integrity exists or until patient is discharged from home health services. Wound Education and Management No Progression towards healing Description: #1 Sternum midline Wound show progression towards healing by 03/16/25 Wound Care No Progression towards healing Description: #2 Right neck/arm Wound show progression towards healing by 03/16/25 Wound Care No Progression towards healing Description: #[address] sites Wound show progression towards healing by 03/16/25 Wound Care No Measure vital signs during every home health visit during episode of care Description: Home game master to measure vital signs during every home health visit during episode of care. Monitor patient's vital signs every home health visit No Verbalize signs of infection Description: Patient/caregiver will demonstrate knowledge of infection prevention strategies by verbalizing signs and symptoms of infection. Infection Prevention No Demonstrate fall and safety precautions Description: Patient/caregiver maintains safe home environment as evidenced by remaining free from falls, injury due to falls, demonstrating safety precautions, and identifying strategies to reduce falls by 03/11/25 Fall Precautions/Safety Concerns No Report that pain has been reduced or controlled Description: Patient/caregiver/family will verbalize satisfaction with the patients level of pain and symptom control. Pain No Interventions Intervention Associated Problem/Goal Status Variance Visit Notes Educate on Wound Care Management Description: Instruct patient/caregiver on wound management including: ordered wound care, utilizing clean technique, appropriate hand hygiene, and disposal of dressings. Instruct patient/caregiver on nutrition and hydration needs for altered skin integrity, signs an d symptoms of infection and/or wound deterioration to report to home health agency and or physician. Problem:Wound Education and Management Goal:Knowledgeable of Wound Management Scheduled Perform dressing change Description: Perform dressing change: Site #1 Sternum midline Skilled Nurse, Caregiver and Patient to perform dressing change as of 02/13/25, Frequency daily and PRN for excess drainage or dislodgement of dressing. Wound care as follows: cleanse with soap and water, pat dry, and leave open to air. Caregiver and patient to perform wound care in homecare's absence. Per discharge instructions Problem:Wound Care Goal:Progression towards healing Scheduled Perform dressing change Description: Perform dressing change: Site #2 right arm/neck Skilled Nurse, Caregiver and Patient to perform dressing change as of 02/13/25, Frequency daily and PRN for excess drainage or dislodgement of dressing. Wound care as follows: cleanse with soap a nd water, pat dry, and leave open to air. Caregiver and patient to perform wound care in homecare's absence. Per discharge instructions Problem:Wound Care Goal:Progression towards healing Scheduled Perform dressing change Description: Perform dressing change: Site #[address] sites Skilled Nurse, Caregiver and Patient to perform dressing change as of 02/13/25, Frequency daily and PRN for excess drainage or dislodgement of dressing. Wound care as follows: cleanse with soap and water, pat dry, and leave open to air. RN to remove sutures at next visit. Caregiver and patient to perform wound care in homecare's absence. Per discharge instructions Problem:Wound Care Goal:Progression towards healing Scheduled Monitor Vital Signs Description: Monitor blood pressure, pulse, oxygen saturation, respirations Problem:Monitor patient's vital signs every home health visit Goal:Measure vital signs during every home health visit during episode of care Scheduled Educate Patient on Infection Prevention Description: Instruct patient on signs and symptoms of infection IE: fever, odor, change in color, increased amount of drainage, purulent drainage, warmth. Problem:Infection Prevention Goal:Verbalize signs of infection Scheduled Educate Family on Infection Prevention Description: Instructed family on signs and symptoms of infection IE: fever, odor, change in color, increased amount of drainage, purulent drainage, warmth. Problem:Infection Prevention Goal:Verbalize signs of infection Scheduled High Fall Risk Precautions Description: Instruct patient/caregiver to use proper lighting in all areas, stand/sit up slowly, use appropriate footwear when walking, use proper assistive devices, and to keep pathways clear of cords and clutter to prevent falls. Remove/secure throw rugs. Educate patient on medications and disease processes that increase fall risk, using corrective lenses as prescribed, placing hard to reach items within reach, what to do in the event of a fall and to report any falls to the home health agency. Problem:Fall Precautions/Safety Concerns Goal:Demonstrate fall and safety precautions Scheduled Instruct on pain management techniques Description: Instruct in pharmacologic and nonpharmacologic pain management techniques. Problem:Pain Goal:Report that pain has been reduced or controlled Scheduled documented in this encounter Care Teams Blender/Braze Applicator Relationship Specialty Start Date End Date Allie Chong NP [address] [place] [address] PCP - General Nurse Practitioner 07/26/24 documented as of this encounter
--- OUTSIDE RECORDS SUMMARY | 2025-02-19 18:06 | XMS_ITS | Encounter Summary ---
Author Organization [facility] Health Address [address] [place] [address] Care Team Providers Care Program Management Analyst Name Role Phone Dwayne Torres MD Primary Care Provider [phone] Encounter Details Date Type Department Care Team (Late st Contact Info) Description 11/22/2017 Lab Requisition [facility] Care DermPath Lab [address] [facility] [place] [phone] Kassandra Maurice MD [address] [facility] [address] [place] [address] Social History Tobacco Use Types Packs/Day Years Used Date Smoking Tobacco: Former Smokeless Tobacco: Never Alcohol Use Standard Drinks/Week Comments Yes 1.7 (1 standard drink = 0.6 oz p ure alcohol) Comments Unknown Sex and Gender Information Value Date Recorded Sex Assigned at Not on file 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 Gender Identity Not on file Sexual Orientation Not on file documented as of this encounter Plan of Treatment Not on file documented as of this encounter Procedures Procedure Name Priority Date/Time Associated Diagnosis Comments DERMATOPATH TECHNICAL REPORT Routine 11/21/2017 12:00 AM CDT documented in this encounter Results * DERMATOPATH TECHNICAL REPORT (11/21/2017 12:00 AM CDT) Case Report Dermatopathology Report Case: [id number] Authorizing Provider: Kassandra Maurice MD Collected: 11/21/2017 12:00 AM Pathologist: Shanika Cameron MD Received: 11/22/2017 06:13 AM Specimen: Skin, right shoulder 11:33 AM CDT DERMATOPATHOLOGY LABORATORY Clinical History Bx proven BCC. Prior Biopsy [id number]. Check margins. 11:33 AM T DERMATOPATHOLOGY LABORATORY Gross Description Specimen A: Received is one formalin filled container labeled with the patient's name and designated right shoulder.The specimen consists of an ellipse measuring [id number] and is oriented with the notch at [...] submitted in cassettes 3-4. Jar 0. [facility] Dermatopathology Laboratory performed the technical component only. 11:33 AM T DERMATOPATHOLOGY LABORATORY Embedded Images 11:33 AM [facility] DERMATOPATHOLOGY LABORATORY DISCLAIMER An external and internal positive and negative controls are appropriate for the histochemical, immunohistochemical and immunofluorescence stain(s) in this case (if any), except where stated explicitly. The performance characteristics of the stain(s) cited in this report were developed and its performance characteristic determined by the Dermatopathology Laboratory at [facility]. These tests need not be, and therefore are not, approved by the [place] Food and Drug Administration. The tests are used for clinical purposes. 11:33 AM [facility] DERMATOPATHOLOGY LABORATORY at 1133 CDT Pathology/Cytolog y TISSUE SPECIMEN FROM SKIN / Unknown 11/21/2017 11/22/2017 6:13 AM CDT us Kassandra Maurice MD LAB - PATHOLOGY/CYTOLOGY ORD ERABLES Final Result DERMATOPATHOLOGY LABORATORY [facility] - Department of Dermatology [address] [facility] [address] [facility] [place] [address], [facility] [phone] documented in this encounter Visit Diagnoses Not on filedocumented in this encounter Care Teams Program Management Analyst Relationship Specialty Start Date End Date Dwayne Torres MD [address] [place] [phone] PCP - General 04/07/12 documented as of this encounter
--- OUTSIDE RECORDS SUMMARY | 2025-02-19 18:06 | XMS_ITS | Encounter Summary ---
Author Organization [facility] Address [address] [place] [place] [address] Phone Care Team Providers Care Wearing Apparel Assembler Name Role Phone Dwayne Torres MD Primary Care Provider [phone] Troy Dunn MD Primary Care Provider [phone] Hussain Torres MD Unavailable Reason for Visit * Reason Comments Medication Refill Encounter Details Date Type Department Care Team (Late st Contact Info) Description 05/26/2021 Refill [facility] - Primary Care - [employer] [address] [place] [address] Kelsi Reyes MD [address] [place] [address] Medication Refill Social History Tobacco Use Types Packs/Day Years Used Date Smoking Tobacco: Every Day Cigarettes Smokeless Tobacco: Never Comments No Sex and Gender Information Value Date Recorded Sex Assigned at Not on file Legal Sex Female 10:12 AM PATIENT 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 Gender Identity Not on file Sexual Orientation Not on file documented as of this encounter Plan of Treatment Not on file documented as of this encounter Visit Diagnoses Not on filedocumented in this encounter Care Teams Wearing Apparel Assembler Relationship Specialty Start Date End Date Dwayne Torres MD [address] [place] [address] PCP - General Internal Medicine 05/21/19 12/27/22 Troy Dunn MD [address] [facility] [address] [place] [address] PCP - General Family Medicine 12/28/22 Hussain Torres MD [address] [facility] [address] [place] [address] Consulting Physician Colon and Rectal Surgery 04/12/23 documented as of this encounter
--- OUTSIDE RECORDS SUMMARY | 2025-02-19 18:06 | XMS_ITS | Clinical Summary ---
Author Organization [facility] Address [address] [place] [address] Care Team Providers Care Pipe Stress Engineer Name Role Phone Dwayne Torres MD Primary Care Provider [phone] Source Comments [facility],non-[facility] Affiliates and Associated Physician Practices is amultiple site organization consisting of ambulatory clinics and hospital sitesin [place], [place], [place] and [place]. This disclosure is being madepursuant to the Care Everywhere program and may not contain all information available regarding this patient. 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
--- OUTSIDE RECORDS SUMMARY | 2025-02-19 18:06 | XMS_ITS | Data Portability ---
Author Organization [facility] [employer], Main Office Address [address] [place] [address] Assessment No assessment recorded. Plan of Treatment Reminders Order Date Submit Date Provider Last Modified By Organization Details Last Modified Time Details Appointments None recorded. Lab CMP, serum or plasma 2022 023 [facility] [employer] [facility], [address], [place], [address], 3 10:16:23 CBC w/ auto diff 2022 023 [facility] [employer] [facility], [address], [place], [address], 3 10:16:23 TSH, serum or plasma 2022 023 [email or web address] [address] [employer] [facility], [address], [place], [address], 3 10:16:23 T4, free, serum 2022 023 [email or web address] [address] [employer] [facility], [address], [place], [address], 3 10:16:23 Referral gynecologis t referral 2022 023 harvey Osman MD, [facility] [facility] [address], [place], [address], 3 14:19:29 cardiologis t referral 2022 023 ABBY Muñ[place], [address] [facility], [address], [place], [address], 17:31:24 Procedures colonoscopy screening (PROC) 2022 023 [email or web address] Dutch Bravo MD, [address], [facility] [address], [place], [address], 3 10:17:10 Surgeries None recorded. Imaging None recorded. Medication Orders None recorded. Patient TargetsNo targets recorded. Patient InstructionsNo instructions recorded. 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 [id number] [facility] Orders [address] [place], [address], 07/01/2022 01:33:59 01/09/20 22 01/08/2022 scree nakita breas t preet, bilat [facility] [address] [facility] [place] [address] [phone] Patiperfecto t Name: ETHEL AVILA Access ion #: [id number] Sex: F : 1955 0 Locati on: RAD Attend ing Physic mariaelena: SANDEE HANSONTFRANSISCA A Orderi ng Physic mariaelena: JACQUELINE HANSON Exam [...] 2 [facility] Name: ETHEL AVILA Access ion #: [id number] Sex: F : 1955 0 Exam [...] MD (CT) (CT) Page 2 of 2 [id number] [facility] (Imaging) [address] [place], [address], 07/01/2022 01:33:59 01/09/20 22 01/08/2022 DEXA, axial skele ton No observ ation record ed. [id number] [facility] (One Call Scheduling) [address] [place], [address], 07/01/2022 01:33:59 01/09/20 22 01/08/2022 DEXA, axial skele ton [facility] [address] [facility] [place] [address] [phone] Patien t Name: ETHEL AVILA Access ion #: [id number] Sex: F : 1955 0 Locati [...] e of -1.0. Page 1 of 2 [facility] Patiperfecto t Name: ETHEL AVILA Access ion #: [id number] Sex: F : 1955 0 Exam [...] MD (CT) (CT) Page 2 of 2 [id number] [facility] (Imaging) [address] [place], [address], 07/01/2022 01:33:59 04/09/20 22 04/09/2022 US, thyro id No observ ation record ed. [id number] [facility] Add On Lab Orders [address] [place], [address], 07/01/2022 01:33:59 04/09/20 22 04/09/2022 MAMMO , diagn ostic , digit al, unila teral , w/ CAD [facility] [address] [place] [address] Patien t Name: ETHEL AVILA Access ion #: [id number] Sex: F : 1955 1 Locati on: RAD Attend ing Physic mariaelena: JACQUELINE HANSON Orderi Physic mariaelena: JACQUELINE HANSON Exam Date: 022 [...] here. IMPRES ALAINA: Page 1 of 2 [facility] Jimmy wyatt Name: ETHEL AVILA Access ion #: [id number] Sex: F : 1955 1 Exam [...] ed prompt ly to the [facility] er. A negati ve mammog diamond [...] 10:53 AM (CT) Page 2 of 2 [id number] [facility] (Imaging) [address], [place], [address], 07/01/2022 01:33:59 04/09/20 22 04/09/2022 US, head + neck, soft tissu e [facility] [address], [place] [address] [phone] Patien t Name: ETHEL AVILA Access ion #: [id number] Sex: F : 1955 1 Locati [...] t. There are Page 1 of 2 [facility] Pati edmundo Name: ETHEL AVILA Access ion #: [id number] Sex: F : 1955 1 Exam [...] 3:00 PM (CT) Page 2 of 2 [id number].[id number] [facility] (Imaging) [address] [place], [address], 07/01/2022 01:33:59 09/03/19 23 09/02/2022 US, echoc ardio gram No observ ation record ed. roshan [facility] [address], [place], [address], 09/09/2022 13:16:35 09/03/19 23 09/02/2022 US, christiano de la cruz carot id arter y No observ ation record ed. roshan [facility] [address], [place], [address], 09/09/2022 13:16:36 11/21/19 24 11/21/2023 imagi ng/di agnos tic resul t No observ ation record ed. [facility] [address], [place], [address], 11/21/2023 13:46:36 11/21/19 24 11/21/2023 imagi ng/di agnos tic resul t No observ ation record ed. [facility] [address], [place], [address], 11/21/2023 14:04:28 Result Notes Documentation Provider Name and Address Organization Details Recorded Time Dexa, Axial Skeleton : [address] [address] Patient Name: ETHEL HOBSON Sex: F : 1955 Location: [facility] Attending Physician: SAMY SPENCER Ordering Physician: SAMY SPENCER Exam Date: 01/08/2022 1:45 PM Exam Name: XR DEXA-HIPS PELVIS SPINE Admitting Diagnosis(es): RADIOLOGY REPORT - FINAL EXAM: XR DEXA-HIPS PELVIS SPINE HISTORY: MENOPAUSAL COMPARISON: None. TECHNIQUE: TECHNIQUE: Dual energy x-ray of absorption examination of the bilateral hips and lumbar spine in AP projection was performed. FINDINGS: Lumbar Spine (L1-L4): The mean bone mineral density is 1.104 g/cm2 hydroxyapatite, correlating with a T-score of -0.7. Bilateral hips: The mean bone mineral density is 0.880 g/cm2 calcium hydroxyapatite, correlating with a T-score of -1.0. Page 1 of 2 [facility] Patient Name: ETHEL HOBSON Sex: F : 1955 Exam Date: 01/08/2022 1:45 PM Exam Name: XR DEXA-HIPS PELVIS SPINE Admitting Diagnosis(es): IMPRESSION: 1. The patient's lumbar spine T-score is consistent with a normal bone density. 2. The patient's bilateral hip T-score is consistent with osteopenia. According to the World Health Organization, T-score values greater than -1.0 are normal, values between -1.0 and -2.5 are categorized as osteopenia, T-score of -2.5 or more are categorized as osteoporosis. Created and electronically signed by: Mitch Thompson MD Signed Date: 01/08/2022 2:26 PM (CT) Dictated by: Mitch Thompson MD (CT) (CT) Page 2 of 2 Not Available [facility] 07/01/2022 01:33:59 Mammo, Diagnostic, Digital, Unilateral, W/ Cad : [address] [address] Patient Name: ETHEL HOBSON Sex: F : 1955 Location: [facility] Attending Physician: SAMY SPENCER Ordering Physician: SAMY SPENCER Exam Date: 04/09/2022 10:36 AM Exam Name: MAMMO DIGITAL UNILAT RT Admitting Diagnosis(es): MAMMOGRAPHY REPORT - FINAL EXAM: MG MAMMO DIGITAL UNILAT RT HISTORY: call back 66-year-old female with right breast focal asymmetry seen on screening mammogram. COMPARISON: Mammography dated 01/08/2022. TECHNIQUE: Right breast spot compression CC and MLO views and rolled CC views were performed. Digital Mammography images were obtained. FINDINGS: The right breast asymmetry seen on recent mammography resolves on the rolled and spot compression views. No suspicious findings are identified here. IMPRESSION: Page 1 of 2 [facility] Patient Name: ETHEL HOBSON Sex: F : 1955 Exam Date: 04/09/2022 10:36 AM Exam Name: MG MAMMO DIGITAL UNILAT RT Admitting Diagnosis(es): BI-RADS 1. Negative. Recommend returning to annual screening mammography. According to the [employer], yearly mammograms are recommended starting at age 40 and continuing as long as the woman is in good health. Clinical Breast Exam should be part of the periodic health exam-about every 3 years for women in their 20s and 30s and every year for women 40 and over. Breast self-exam is an option for women in their 20s. Any breast change noted on the breast self-exam she would be reported promptly to the patient's health care provider. A negative mammography report should not discourage follow-up or biopsy of a clinically significant finding and/or abnormality. Dense breast tissue may obscure small neoplasms. This patient has been entered into a mammography reminder system with a target date for her next mammogram. Created and electronically signed by: Stas Allan MD Signed Date: 04/09/2022 10:53 AM (CT) Dictated by: Stas Allan MD (CT) (CT) Page 2 of 2 Not Available [facility] 07/01/2022 01:33:59 Problems Name Problem SNOMED Code Status Onset Date Resolution Date Notes Provider Name and Address Organization Details Recorded Time Mammography abnormal 522370646 Active 2021 Not Available [employer] 3 10:34:50 Hypothyroidis m 15267095 Active 2021 Not Available [employer] 3 10:34:50 Essential hypertension 71377507 Active 2022 Not Available [employer] 3 10:34:50 Hyperlipidemi a 28574991 Active 2022 Not Available [facility] 3 10:34:50 Chronic pain 18770897 Active 2022 Not Available [facility] 3 10:34:50 Coronary arteriosclero sis 23199410 Active 2022 Not Available [employer] 3 10:34:50 Moderate recurrent major depression 45506788 Active 2022 Not Available [employer] 3 10:34:50 Skin lesion 34988333 Active 2022 Not Available [employer] 10:34:50 Problem Notes None recorded. Procedures Surgical History Date Name Laterality Status Provider Name and Address Organization Details Recorded Time 03/17/20 excision of malignant neoplasm completed Not Available [facility] 07/01/2022 01:32:30 Appendectomy completed Not Available [facility] 07/01/2022 01:32:30 Cholecystectomy completed Not Available [facility] 07/01/2022 01:32:30 open heart surgery completed Not Available [facility] 07/01/2022 01:32:30 Carotid Endarterectomy completed Not Available [facility] 07/01/2022 01:32:30 Kidney completed Not Available [facility] 07/01/2022 01:32:30 section completed Not Available [facility] 07/01/2022 01:32:30 Imaging Results None recorded. Procedure [...] Body weight Body temperature Heart rate Systolic And Diastolic Provider Name and Address Organization Details Last Updated DateTime 3 157.48 cm 30.5 kg/m2 08163.9 3 g 97.6 [degF] 72 /min 130/60 mm[Hg] [address] [place] [facility] 3 11:53:28 Date Recorded Body mass index (BMI) Body height Heart rate Body temperature Body weight Systolic And Diastolic Provider Name and Address Organization Details Last Updated DateTime 2 28.9 kg/m2 157.48 cm 72 /min 97.7 [degF] 99270.5 9 g 126/62 mm[Hg] Not Available [facility] 3 01:32:43 Date Recorded Body mass index (BMI) Body height Heart rate Body temperature Body weight Systolic And Diastolic Provider Name and Address Organization Details Last Updated DateTime 2 29.6 kg/m2 157.48 cm 78 /min 97.6 [degF] 67585.9 6 g 126/60 mm[Hg] Not Available [facility] 3 01:32:43 Social History Question Answer Notes LastModified by Organization Details LastModified Time Tobacco Smoking Status Current Every Day Smoker Not Available [facility] 07/01/2022 01:32:03 Do You Have An Advance Directive? No [id number] Information not available 07/01/2022 Do You Wear A Helmet When Biking? Yes MIGRATION.22990607 Information not available 07/01/2022 Are You Blind Or Do You Have Difficulty Seeing? No MIGRATION.22990607 Information not available 07/01/2022 What Is Your Level Of Caffeine Consumption? Moderate MIGRATION.22990607 Information not available 07/01/2022 In The 14 Days Before Symptom Onset, Have You Had Close Contact With A Laboratory-conf irmed COVID-19 While That Case Was Ill? No MIGRATION.0301 186430 Information not available 07/01/2022 In The 14 Days Before Symptom Onset, Have You Had Close Contact With A Person Who Is Under Investigation For COVID-19 While That Person Was Ill? No MIGRATION.0301 911370 Information not available 07/01/2022 Are You Deaf Or Do You Have Serious Difficulty Hearing? No MIGRATION.0301 215479 Information not available 07/01/2022 What Type Of Diet Are You Following? REGULAR MIGRATION.0301 498740 Information not available 07/01/2022 What Is The Highest Grade Or Level Of School You Have Completed Or The Highest Degree You Have Received? [id number] MIGRATION.030 502261 Information not available 07/01/2022 Have There Been Any Changes To Your Family Or Social Situation? No MIGRATION.0301 314670 Information not available 07/01/2022 What Is The Fluoride Status Of Your Home? Unknown MIGRATION.0301 386148 Information not available 07/01/2022 Are There Any Guns Present In Your Home? Yes MIGRATION.0301 046993 Information not available 07/01/2022 Do You Use Insect Repellent Routinely? No MIGRATION.0301 102028 Information not available 07/01/2022 Where Do You Live? SingleLevelHouse MIGRATION.0301 367099 Information not available 07/01/2022 Do You Have A Medical Power Of C Unix Developer? No MIGRATION.0301 445369 Information not available 07/01/2022 What Was The Date Of Your Most Recent Tobacco Screening? 07/15/2022 Information not available 07/15/2022 Have You Ever Been Counseled For Unhealthy Alcohol Use? No MIGRATION.0301 600155 Information not available 07/01/2022 Do You Have Any Pets? No MIGRATION.0301 468316 Information not available 07/01/2022 What Is Your Relationship Status? MIGRATION.0301 293632 Information not available 07/01/2022 Do You Use Your Seat Belt Or Car Seat Routinely? Yes MIGRATION.0301 824898 Information not available 07/01/2022 Do You Have Smoke And Carbon Monoxide Detectors In Your Home? Yes MIGRATION.0301 045134 Information not available 07/01/2022 At What Age Did You Start Smoking Tobacco? 60 MIGRATION.0301 695878 Information not available 07/01/2022 Are You Passively Exposed To Smoke? Yes MIGRATION.0301 309442 Information not available 07/01/2022 Are There Any Smokers In Your House? Yes MIGRATION.0301 296090 Information not available 07/01/2022 How Much Tobacco Do You Smoke? 1 PPD Increased From 1/2ppd Information not available 07/15/2022 What Types Of Sporting Activities Do You Participate In? None MIGRATION.0301 416678 Information not available 07/01/2022 Do You Use Sunscreen Routinely? Yes MIGRATION.0301 611354 Information not available 07/01/2022 Have You Recently Traveled Abroad? No MIGRATION.0301 329420 Information not available 07/01/2022 Do You Have Difficulty Walking Or Climbing Stairs? No MIGRATION.0301 169290 Information not available 07/01/2022 Do You Have Any Dietary Restrictions? No MIGRATION.0301 697092 Information not available 07/01/2022 Sex: Female Functional Status Question Answer Note LastModified by OrganBueenoat ion Details LastModified Time Do you use any illicit or recreational drugs? No MIGRATION.1582227 026 Information not available 07/01/2022 Do you or have you ever used any other forms of tobacco or nicotine? No MIGRATION.5544939 026 Information not available 07/01/2022 What is your level of alcohol consumption? Occasional MIGRATION.4778910 026 Information not available 07/01/2022 Do you have transportation difficulties? No MIGRATION.1730342 026 Information not available 07/01/2022 Are you able to walk independently without assistance or assistive devices? YESWOREST MIGRATION.6497936 026 Information not available 07/01/2022 Do you have difficulty doing errands alone? No MIGRATION.9314773 026 Information not available 07/01/2022 Are you able to care for yourself independently? Yes MIGRATION.5379153 026 Information not available 07/01/2022 What is your occupation? [employer] MIGRATION.0440384 026 Information not available 07/01/2022 Do you have difficulty dressing, bathing, grooming, or toileting? No MIGRATION.7150851 026 Information not available 07/01/2022 What is your exercise level? Occasional MIGRATION.2242444 026 Information not available 07/01/2022 Mental Status Question Answer Note LastModified by Organizat ion Details LastModified Time Do you feel stressed (tense, restless, nervous, or anxious, or unable to sleep at night)? [id number] MIGRATION.07286668 26 Information not available 07/01/2022 Do you have difficulty concentrating, remembering or making decisions? No MIGRATION.18700479 26 Information not available 07/01/2022 Family History Relationship Description Onset Age of this Age Resolved Age Notes LastModified by Organization Details LastModified Time Mother Heart disease MIGRATION.446 5381070 Not available 07/01/2022 01:32:31 Brother Heart disease MIGRATION.697 1847140 Not available 07/01/2022 01:32:31 Brother Mesothelioma (malignant, clinical disorder) MIGRATION.465 9154504 Not available 07/01/2022 01:32:31 Sister Heart disease 2 sister s MIGRATION.564 6843224 Not available 07/01/2022 01:32:31 Sister Diabetes mellitus MIGRATION.318 8171864 Not available 07/01/2022 01:32:31 Maternal Grandmother Diabetes mellitus MIGRATION.850 1931608 Not available 07/01/2022 01:32:31 Paternal Grandmother Diabetes mellitus MIGRATION.180 6850083 Not available 07/01/2022 01:32:31 Medical History Condition [...] Diagnosis SNOMED-CT Code Diagnosis ICD10 Code Diagnosis IMO Codes Diagnosis Note [id number] Samy de león MD [facility] Internal Med [facility] [address] [place] [address]., [address] [address] 12/01/2021 00:00:00 12/01/2021 12:51:14 [id number] Samy de león MD [facility] Internal Med [address] [address] 03/18/2022 00:00:00 03/18/2022 12:23:48 [id number] Samy de león MD [facility] Internal Med [address] [address] 07/15/2022 11:43:35 07/15/2022 12:15:56 Screening - NAD 734294694 Z13.9 C-scope: Get this done if not done Mammogram: Birads 0, get R breast USMammogra m: 04/09/2022 : Neg DEXA: 01/08/2022 : Osteopenia , ca and vit d PAP: Get this Get yearly flu shotGet tdap if not doneGet COVID 19 vaccineGet shingrixPARAS D on PCV #23 02/14/2020 RTC in 3 months, do labsER if worseShcatarina did verbalize her understand ing of the above Essential hypertension 12955628 I10 On coreg 12.5mg bid, renewed 12/01/2021 On plavix 75mg dailyOn losartan 100mg daily Get labs Hyperlipidemia 23082927 E78.5 On crestor 20mg dailyOn zetia 10mg daily Get labs Chronic pain 92769882 G8 9.29 On hydrocodon e, given by her prior PCP, last filled on 11/17/2021 Advised that I am unable to fill any controlled medication s including opiatesShe must see pain management Not on hydrocodon e at this time 07/15/2022 Coronary arteriosclerosis 78379439 I25.10 S/p CABG and s/p stentsOn plavixGet a referral to Dr Muñiz [facility] Dr Muñiz [facility] 01/20/2022 , f/u in 6 months Moderate r ecurrent major depression 85008200 F33.1 On cymbalta 60mg dailyDoes well, renewed 12/01/2021 Not suicidal or homicidalD eclines any referrals to psychiatry Hypothyroidism 11221233 E03.9 Repeat the labsGet US thyroid Skin lesion 77544611 L98 .9 S/p surgery done by a derm at [place], [place], she made the apt her self Gynecologi c examination 22928826 Z01.419 Screening for malignant neoplasm of colon 621859018 Z12.11 Health Concerns Section Related Observation LastModified by Organization Detai ls LastModified Time None Recorded Concern Status LastModified by Organization Details LastModified Time None Recorded Advance Directives Directive N: Payers Insurance Date Sequence Insurance Name Policy Number Policy Sterling Covered Member ID Sterling Member ID Guarantor Name 11/15/2022 1 [employer] (MEDICARE REPLACEMENT /ADVANTAGE - PPO) [id number] Ethel Hobson [id number] Ethel Hobson Notes Date Note Type Note Provider Name and Address Organization Details Recorded Time 3 text/html OV 12/01/2021:Here to establish carePast Hx:CADHTNHLDChronic painDepressionReviewed social family and surgical historyHere to discuss above, get Gilberto feels wellOV 03/18/2022:Here for her f/u apt, she is doing well, did do the TSH OV 07/15/2022:Here for her f/u apt, she is well, no new labs Samy Spencer MD [address] [place] [address] Joanna, [facility] [address], [place], [address], [place] [facility] 07/15/2022 13:58:54 OBGyn Episode No OBEpisode recorded.
--- OUTSIDE RECORDS SUMMARY | 2025-02-19 18:08 | XMS_ITS | Encounter Summary ---
Author Organization [facility] Address [address] [facility] 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 Name Role Phone Troy Dunn MD Primary Care Provider [phone] Hussain Torres MD Unavailable Reason for Visit * Reason Comments Medication Refill Encounter Details Date Type Department Care Team (Late st Contact Info) Description 01/09/2024 Refill [facility] - [facility] [address] [place] [address] Troy Dunn MD #[address] [address] Medication Refill Social History Tobacco Use Types Packs/Day Years Used Date Smoking Tobacco: Former Cigarettes 1 53.2 1 971 - 07/25/2023 Smokeless Tobacco: Never Comments:Quit for 18 years i n between Alcohol Use Standard Drinks/Week Comments Not Currently 0 (1 standard drink = 0.6 oz pur e alcohol) [facility] Utilities Answer Date Recorded In the past 12 months has [employer] electric, gas, oil, or water company threatened to shut off services in your home? No 04/28/2023 Social Connection and Isolation Panel Answer Date Recorded In a typical week, how many times do you talk on the phone with family, friends, or neighbors? 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
--- OUTSIDE RECORDS SUMMARY | 2025-02-19 18:08 | XMS_ITS | Clinical Summary ---
Author Organization [facility] [address] [facility] Address [address] [place] [id number] Phone Care Team Providers Care Mental Health Program Manager Name Role Phone Allie Chong NP Primary Care Provider [phone] Allergies No known active allergies Medications ezetimibe (ZETIA) 10 mg tabletIndications: hyperlipidemia Take 1 tablet (10 mg total) by mouth every morning 018 Active carvedilol (COREG) 12.5 mg tablet Take 1 tablet (12.5 mg total) by mouth 2 (two) times a day with meals. 60 tablet 018 Active Additional Information Patient taking differently:12.5 mg oral 2 times daily with meals (bkfst, dinner),Indications: hypertension, Informant: Self, Reported on 01/28/2025 rosuvastatin (CRESTOR) 20 mg tablet Take 1 tablet (20 mg total) by mouth daily. 30 tablet 018 Active Additional Information Patient taking differently:20 mg oralEvery morning, Indications: Cerebral Thromboembolism Prevention, coronary artery disease, hyperlipidemia, Informant: Self, Reported on 01/28/2025 clopidogrel (PLAVIX) 75 mg tabletIndications: myocardial infarction prevention Take 1 tablet (75 mg total) by mouth daily. 30 tablet 018 Active Additional Information Patient taking differently:75 mg oralDaily (early AM), Indications: Cerebral Thromboembolism Prevention, Thrombosis Prevention after PCI, Informant: Self, Reported on 01/28/[address] (CYMBALTA) 60 mg capsuleIndications :Chronic Musculoskeletal Pain Take 1 capsule (60 mg total) by mouth nightly. 30 capsule 018 Active Additional Information Patient taking differently:60 mg oral Nightly,Indications: Anxiety with Depression, Chronic Musculoskeletal Pain, Informant: Self, Reported on 01/28/2025 losartan (COZAAR) 100 mg tablet Take 1 tablet (100 mg total) by mouth daily 025 2025 Active Additional Information Patient taking differently:100 mg oralEvery morning, Indications: hypertension, Informant: Self, Reported on 01/28/2025 levothyroxine (SYNTHROID) 88 mcg tabletIndications: hypothyroidism Take 1 tablet (88 mcg total) by mouth heel packer before breakfast 025 Active meclizine (ANTIVERT) 25 mg tabletIndications: Vertigo Take 1 tablet (25 mg total) by mouth 3 (three) times a day as needed for dizziness or nausea 024 Active nitroglycerin (NITROSTAT) 0.3 mg SL tabletIndications: acute episode of anginal pain Place 1 tablet (0.3 mg total) under the tongue every 5 (five) minutes as needed for chest pain DISSOLVE ONE TABLET UNDER THE TONGUE EVERY 5 MINUTES NEEDED FOR CHEST PAIN. DO NOT EXCEED A TOTAL OF 3 DOSES IN 15 MINUTES 024 Active calcium citrate-vitamin D3 200 mg-6.25 mcg (250 unit) tabletIndications: Hypocalcemia Prevention,Prevent ion of Vitamin D Deficiency Take 1 tablet by mouth every morning Supplement Pt currently not taking Active chlorhexidine (PERIDEX) 0.12 % oral rinseIndications:M outh Infection Prevention,preop for surgery on 01/28/25 Apply 15 mL to the mouth or throat 3 (three) times a day 025 Active mupirocin (BACTROBAN) 2 % ointmentIndication s:Methicillin-Resi stant S. Aureus Nasal Colonization,preop med for surgery on 01/28/25 Apply to each nostril 2 (two) times a day 025 Active mirtazapine (REMERON) 15 mg tabletIndications: sleep Take 1 tablet (15 mg total) by mouth nightly as needed (sleep) Active aspirin 81 mg enteric coated tabletIndications: Cerebral Thromboembolism Prevention Take 1 tablet by mouth daily Active acetaminophen 500 mg capsuleIndications :Pain,1st line for pain Take 2 capsules (1,000 mg total) by mouth every 6 (six) hours 30 tablet Active albuterol HFA (PROVENTIL HFA,VENTOLIN HFA,PROAIR HFA) 90 mcg/actuation inhalerIndications :Bronchospasm Prevention Inhale 2 puffs every 4 (four) hours as needed for wheezing 1 each 2025 Active docusate sodium (COLACE) 100 mg capsuleIndications :constipation Take 1 capsule (100 mg total) by mouth 2 (two) times a day 60 capsule Active polyethylene glycol (MIRALAX) 17 gram packetIndications: constipation Take 1 packet (17 g total) by mouth daily as needed for constipation 5 packet Active senna (SENOKOT) 8.6 mg tabletIndications: constipation Take 1 tablet by mouth 2 (two) times a day 60 tablet Active oxyCODONE (ROXICODONE) 5 mg immediate release tabletIndications: Pain Take 1 tablet (5 mg total) by mouth every 4 (four) hours as needed for pain for up to 14 days 20 tablet 2024 Active carvediloL (COREG) 12.5 mg tabletIndications: hypertension Take 12.5 mg by mouth 2 (two) times a day with meals. Indications: high blood pressure Active clopidogreL (PLAVIX) 75 mg tabletIndications: Cerebral Thromboembolism Prevention Take 75 mg by mouth daily. Indications: prevention for a blood clot going to the brain Active DULoxetine DR (CYMBALTA) 60 mg capsuleIndications :Generalized Anxiety Disorder Take 60 mg by mouth daily. Indications: repeated episodes of anxiety Active rosuvastatin (CRESTOR) 20 mg tabletIndications: hyperlipidemia Take 20 mg by mouth daily. Indications: excessive fat in the blood Active aspirin 325 mg tabletIndications: Cerebral Thromboembolism Prevention Take 1 tablet (325 mg total) by mouth every morning TIA 06/2024 Pt stopped taking beginning of Dec 2024; MD not aware 2024 Discontin ued(Stop Taking at Discharge ) acetaminophen (TYLENOL) 325 mg tabletIndications: Arthritic Pain,Pain Take 2 tablets (650 mg total) by mouth as needed for pain 2024 Discontin ued(Stop Taking at Discharge ) HYDROcodone-acetam inophen (NORCO) 5-325 mg per tabletIndications: Pain Take 1 tablet by mouth every 6 (six) hours as needed for pain 025 2024 Discontin ued(Stop Taking at Discharge ) sulfamethoxazole-t rimethoprim (BACTRIM) 800-160 mg per tabletIndications: Urinary Tract/Genitourinar y Infection Take 1 tablet (160 mg of trimethoprim total) by mouth 2 (two) times a day for 10 doses 10 tablet 025 2024 Active Problems Problem Noted Date Diagnosed Date Acute respiratory insufficiency 02/04/2025 Assessment & Plan (02/06/2025 11:17 AM CDT): - Pulmonary hygiene: IS, PT/OT - SpO2 goal >92% - Reports she is using her IS. - Currently on oxygen 2L/NC. Renal infarct 02/04/2025 Assessment & Plan (02/04/2025 7:45 AM CDT): - 01/28 CT addendum 1.5 cm exophytic left renal pelvis lesion which may represent a small hematoma or renal neoplasm - Recs CT urogram out patient Leukocytosis 02/04/2025 Assessment & Plan (02/06/2025 11:16 AM CDT): - Trend fever curve and monitor WBC nightly - Peaked at 16 (02/03), now down trending -02/03: blood cultures NGTD, follow-up final results -02/03: Urine culture growing Enterobacter Cloacae complex, susceptibility pending. - Started on Ceftriaxone on 02/03. - 02/05: Urine culture growing Enterobacter Cloacae complex, resistant to Caftriaxone and susceptible to cefepime. -02/05: Ceftriaxone stopped and Cefepime started. Dysphagia 02/04/2025 Assessment & Plan (02/06/2025 11:17 AM CDT): MARKET RESEARCH SPECIALIST following. - Advance diet to regular food and continue nectar thick liquids. - Plan MBS today 02/06 Atelectasis 02/03/2025 Overview (02/03/2025): CXR 02/03 Hypoinflated lungs with bronchovascular crowding. Possible superimposed mild pulmonary edema. Increased small left pleural effusion with bibasilar opacities, which could represent atelectasis. - Pulm hygiene - Encourage IS, OOB - PT/OT Subclavian artery stenosis, right 01/28/2025 Hypothyroidism 01/28/2025 Assessment & Plan (01/28/2025 9:58 AM CDT): -cont home synthroid Subclavian steal syndrome of right subclavian ar amber 10/19/2024 Assessment & Plan (02/05/2025 7:29 AM CDT): Symptoms started when she presented [facility] in June with symptoms from a Right sided CVA. On a CT scan she was found to have occlusion of the innominate artery as well as the proximal subclavian and common carotid arteries with reconstitution of the subclavian artery proximal to the vertebral artery as well as reconstitution at the carotid bifurcation. At the time of the stroke the patient had left arm weakness and a facial droop which fully resolved. -OR on 01/28 for aorto-subclavian/carotid bypass - Q4H NVCs - Maintain HOB >30 degrees - SBP goal <150 - Maintain on daily aspirin 81mg - dobhoff removed 02/03. - OOB, PT/OT Stroke-like episode 07/30/2024 Sinus bradycardia 07/26/2024 Hypertriglyceridemia 07/26/2024 Acute ischemic right frontal stroke 07/25/2024 07/25/2024 Occlusion of right common carotid artery 025 07/25/2024 Dyslipidemia, goal LDL below 70 07/25/2024 CAD (coronary artery disease) 07/25/2024 Assessment & Plan (01/28/2025 9:49 AM CDT): [facility] 11/05: Marked restenosis of proximal and mid previously placed bare metal stents 2002 successfully retreated with laser angioplasty and over stenting with DAVION. Occlusion of distal apical LAD stents with apical segment filling from diagonal collateral. Previous cutting balloon angioplasty of PDA widely patent. Plavix to continue for least a month and aspirin indefinitely. -plavix held pre-op -cont ASA Rheumatoid arthritis of mult iple sites with negative rheumatoid factor 03/17/2018 Overview [...] joint. Assessment & Plan (03/17/2018 4:57 PM GLUE MACHINE OPERATOR): This is based on pain and stiffness [...] months. Essential hypertension 03/13/2018 Assessment & Plan (02/04/2025 7:43 AM CDT): On coreg, losartan at home -resume home meds as able. Currently restarted on Coreg. Assessment & Plan (03/14/2018 4:46 PM GLUE MACHINE OPERATOR): History of hypertension - Continue home losartan, carvedilol Assessment & Plan (03/13/2018 11:41 PM GLUE MACHINE OPERATOR): History of hypertension - Continue home losartan, carvedilol Pyelonephritis 03/03/2018 Assessment & Plan (03/14/2018 4:46 PM GLUE MACHINE OPERATOR): Patient presents with stabbing back pain, CVA tenderness, UA with 21-[address] shows large stone in R kidney, bilateral hydronephrosis, fat stranding. Lactate negative. - Discharge with 14-day course of Bactrim 800-160 PO BID - Outpatient Urology followup for nephrolithiasis Assessment & Plan (03/13/2018 11:40 PM GLUE MACHINE OPERATOR): Patient presents with stabbing back pain, CVA [...] Problem Noted Date Diagnosed Date Resolved Date Acute pain 02/04/2025 02/06/2025 Assessment & Plan (02/04/2025 7:42 AM CDT): Pain service following. Continue lidocaine infusion at 1 mg/hr based - PRN oxy and dilaudid - Scheduled acetaminophen Polyarthralgia 03/03/2018 03/17/2018 Overview (03/12/2018): MCP, PIP [...] examination Assessment & Plan (03/14/2018 4:46 PM GLUE MACHINE OPERATOR): Patient has a history of polyarthralgia, affecting multiple joints. - Continue Duloxetine - PRN Tylenol - PRN Ibuprofen Assessment & Plan (03/13/2018 11:40 PM GLUE MACHINE OPERATOR): Patient has a history of polyarthralgia, affecting [...] Encounters Date Type Department Care Team Description 02/19/2025 12:00 PM CDT Home Care Visit [address] [place] [address] Juliane Matt, OT OT HOME VISIT 02/15/2025 3:00 PM CDT Home Care Visit [address] [place] [address] Hilda Verde, ROSELINE SN HOME VISIT 02/15/2025 9:00 AM CDT Home Care Visit [address] [place] [address] Lakeshia Huynh, PT PT INITIAL EVALUATION 02/12/2025 1:30 PM CDT Home Care Visit [address] [place] [address] Juliane Matt OT OT INITIAL EVALUATION 02/11/2025 9:00 AM CDT Home Care Visit [address] [place] [address] Hilda Verde, ROSELINE SN OASIS START OF CARE 02/11/2025 Plan of Care Documentation [address] [place] [address] 02/11/2025 Orders Only [facility] Medicine Surgery [address] [facility] 8th [place] [address] [place] [address] Gerardo Melissa MD Encounter for surgical aftercare following surgery on the circulatory system (Primary Dx); Presence of other vascular implants and grafts 02/08/2025 Telephone [facility] [address] [address] [place] [address] Kayla Gongora RN 02/06/2025 1:16 PM CDT - 02/06/2025 11:59 PM CDT Hospital Encounter [facility] Radiology [address] [place] [address] Discharge Disposition: Discharge to home or self care 01/28/2025 8:30 AM CDT - 01/28/2025 4:50 PM CDT Surgery [facility] Operating Room [address] [place] [address] Gerardo Melissa MD Redo sternotomy, ascending aorta to right subclavian (10 mm Gelweave) and right carotid artery (8 mm [place] PTFE) bypass, Right Carotid endarterectomy, Right pectoralis minor tenotomy 01/28/2025 8:30 AM CDT Anesthesia Event [facility] Operating Room [address] [place] [address] Gian Carroll MD Thomas, Karen D., SURFACE SUPPLY BREATHING APPARATUS 01/28/2025 7:00 AM CDT Ancillary Procedure [facility] Operating Room [address] [place] [address] 01/28/2025 6:24 AM CDT - 02/07/2025 3:51 PM CDT Hospital Encounter [address] [address] Gerardo Melissa MD 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 (Primary Dx); Acute ischemic stroke (HCC); Essential hypertension; Acute post-thoracotomy pain [G89.12]; Painful respiration [R07.1]; Pain of right upper extremity [M79.601]; High risk medication use [Z79.899] Discharge Disposition: Discharge to home, home health skilled care 01/25/2025 Telephone [facility] Vascular Surgery [address] [facility] Medical Office Building [address] [place] [address] Gerardo Melissa MD 01/24/2025 3:00 PM CDT Pre-Admission Testing [facility] Center for Preoperative Assessment and Planning [facility] ([facility]) [address] [place] [id number] Preoperative testing (Primary Dx); Coronary artery disease, unspecified vessel or lesion type, unspecified whether angina present, unspecified whether [place] or transplanted heart 12/27/2024 Telephone [facility] Vascular Surgery [address] [facility] [address] [place] [address] Gerardo Melissa MD 11/26/2024 Telephone [facility] Surgery [address] [facility] Floor 1 [place] [address] Gerardo Melissa MD from Last 3 Months Immunizations Immunization Administration Dates Next Due Influenza, Quadrivalent, Spl it, Preservative Free, Intramuscular 03/14/2018 Influenza, Trivalent, High D ose, Split, Preservative Free, Intramuscular 02/07/2025 Surgical History Surgery Date Site/Laterality Comments NEPHROSTOMY CARDIAC CATHETERIZATION CORONARY ARTERY BYPASS GRAFT HYSTERECTOMY SECTION x2 (1977 and 1978) CHOLECYSTECTOMY APPENDECTOMY CARDIAC CATHETERIZATION 11/05/2024 Left Procedure: LEFT HEART CATHETERIZATION WITH CORONARY ANGIOGRAPHY AND WITH OR WITHOUT LEFT VENTRICULOGRAM 52890; Surgeon: Mitch Remy MD PhD; [facility]; Service: Cardiovascular; Laterality: Left; Medical devices from [...] Former Cigarettes 1.4 33 1 976 - 202 Passive Smoke Exposure: Past Smokeless Tobacco: Never Tobacco Cessation:Counseling Given: Not Answered Alcohol Use Standard Drinks/Week Comments Yes 0 [...] on file Legal Sex Female 12:36 AM GLUE MACHINE OPERATOR Gender Identity Not on file Sexual Orientation Not on file Obstetrics History Last Filed Vital Signs Vital Sign Reading Time Taken Comments Blood Pressure 130/72 02/15/2025 2:32 PM CDT Pulse 74 02/15/2025 2:32 PM CDT Temperature 36.7 C (98.1 F) 02/15/2025 2:32 PM CDT Respiratory Rate 18 02/15/2025 2:32 PM CDT Oxygen Saturation 98% 02/15/2025 2:32 PM CDT Inhaled Oxygen Concentration - - Weight 81.6 kg (180 lb) 02/11/2025 9:16 AM CDT Height 157.5 cm (5' 2) 02/11/2025 9:16 AM CDT Body Mass Index 32.92 02/11/2025 9:16 AM CDT Plan of Treatment Health Maintenance Due Date Last Done Comments Breast Cancer Screening-Mammogram 1956 Colon Cancer Screening-Colonoscopy 1955 DTaP/Tdap/Td Vaccine (1 - Tdap) 09/21/1967 Hepatitis B Screening 1974 Lung Cancer Screening 2006 Zoster Vaccine (1 of 2) 2006 Well Visit 65+ 2021 Osteoporosis Screening-Bone Density Scan 01/09/2024 01/08/2022 Covid-19 Vaccine (3 - 2024-2 6 season) 2024 12/11/2020, 11/20/2020 Depression Screening 07/25/2025 07/25/2024 Fall Risk Assessment 02/07/2026 02/07/2025 Hepatitis C Screening Completed 03/03/2018 Pneumococcal vaccine 65+ Completed 04/28/2023, 01/30 Influenza Vaccine Completed 02/07/2025, , 04/28/2023, Additional history exists Medical Devices Implanted Type Area Space Engineer Device Identifier Shelf Expiration Date Model / Serial / Lot Ter[employer] Leatha Angio-Seal Vip 6fr Closere Device [id number] - [id number] - [id number] Implanted:Qty : 1 on 11/05/2024 by Mitch Remy MD PhD at [facility] Collagen Right: Femoral [employer] Leatha 05/15/2025 [id number] / [id number] / [id number] Medtronic Card Vasc Surgery 2.25 X 18mm Emerson Nance Rx Coronary Stent [id number] - [id number] - [id number] Implanted:Qty : 1 on 11/05/2024 by Mitch Rmey MD PhD at [facility] Stent Left: Anterior Descending Cornary Artery Medtronic Card Vasc Surgery 06/05/2027 [id number] / [id number] / [id number] Medtronic Card Vasc Surgery 3.0 X 30mm Emerson Nance Rx Coronary Stent [id number] - [id number] - [id number] Implanted:Qty : 1 on 11/05/2024 by Mitch Remy MD PhD at [facility] Stent Left: Anterior Descending Cornary Artery Medtronic Card Vasc Surgery 04/01/2027 [id number] / [id number] / [id number] Terumo Cardio Vascular Graft Vascular 10mm 30cm Gelweave Wvn Straight Strl [id number] - [id number] - [id number] Implanted:Qty : 1 on 01/28/2025 by Maximiliano Dunbar MD at [facility] Right: Chest Terumo Cardio Vascular [id number] 09/30/2027 [id number] / [id number] / [id number] [employer] [place] 8mm 40cm 30cm Removable Ring Stretch Thin Wall Graft [id number] - [id number] - [id number] Implanted:Qty : 1 on 01/28/2025 by Maximiliano Dunbar MD at [facility] Right: Neck [employer]l [employer] [id number] 10/16/2027 [id number] / [id number] / Procedures Procedure Name Priority Date/Time Associated Diagnosis Comments POCT GLUCOSE DEVICE Routine 02/07/2025 11:22 AM CDT POCT GLUCOSE DEVICE Routine 02/07/2025 8 :44 AM CDT EGFR STAT 02/07/2025 5:47 AM CDT DIFFERENTIAL AUTO STAT 02/07/2025 5:4 7 AM CDT CALCIUM, IONIZED STAT 02/07/2025 5:47 AM CDT BASIC METABOLIC PANEL STAT 02/07/2025 5:47 AM CDT CBC WITH AUTO DIFFERENTIAL STAT 02/07/2025 5:47 AM CDT TYPE AND SCREEN Timed 02/07/2025 5:47 AM CDT FL MODIFIED BARIUM SWALLOW W VIDEO IP Routine 02/06/2025 1:33 PM CDT MARKET RESEARCH SPECIALIST EVALUATE AND TREAT VIDEOFLUOROSCOPIC SWALLOW STUDY Routine 02/06/2025 1:24 PM CDT EGFR Routine 02/06/2025 2:38 AM CDT CBC WITHOUT DIFFERENTIAL Routine 025 2:38 AM CDT LACTATE, WHOLE BLOOD Routine 02/06/2025 2:38 AM CDT BASIC METABOLIC PANEL Routine 02/06/2025 2:38 AM CDT CALCIUM, IONIZED Routine 02/06/2025 2:38 AM CDT POCT GLUCOSE DEVICE Routine 02/05/2025 6 :03 PM CDT POCT GLUCOSE DEVICE Routine 02/05/2025 11:20 AM CDT POCT GLUCOSE DEVICE Routine 02/05/2025 9 :00 AM CDT EGFR Routine 02/05/2025 5:54 AM CDT LIDOCAINE LEVEL Routine 02/05/2025 5:54 AM CDT CBC WITHOUT DIFFERENTIAL Routine 025 5:54 AM CDT LACTATE, WHOLE BLOOD Routine 02/05/2025 5:54 AM CDT BASIC METABOLIC PANEL Routine 02/05/2025 5:54 AM CDT CALCIUM, IONIZED Routine 02/05/2025 5:54 AM CDT POCT GLUCOSE DEVICE Routine 02/04/2025 5 :43 PM CDT POCT GLUCOSE DEVICE Routine 02/04/2025 12:25 PM CDT LIDOCAINE LEVEL Timed 02/04/2025 10:12 AM CDT POCT GLUCOSE DEVICE Routine 02/04/2025 8 :28 AM CDT POCT GLUCOSE DEVICE Routine 02/04/2025 4 :07 AM CDT EGFR Routine 02/04/2025 1:13 AM CDT CBC WITHOUT DIFFERENTIAL Routine 025 1:13 AM CDT LACTATE, WHOLE BLOOD Routine 02/04/2025 1:13 AM CDT BASIC METABOLIC PANEL Routine 02/04/2025 1:13 AM CDT CALCIUM, IONIZED Routine 02/04/2025 1:13 AM CDT PHOSPHORUS Routine 02/04/2025 1:13 AM CDT MAGNESIUM Routine 02/04/2025 1:13 AM CDT POTASSIUM, WHOLE BLOOD Routine 1:13 AM CDT LIDOCAINE LEVEL Timed 02/04/2025 1:13 AM CDT TYPE AND SCREEN Timed 02/04/2025 1:13 AM CDT POCT GLUCOSE DEVICE Routine 02/03/2025 11:57 PM CDT POCT GLUCOSE DEVICE Routine 02/03/2025 9 :22 PM CDT POCT GLUCOSE DEVICE Routine 02/03/2025 7 :46 PM CDT POCT GLUCOSE DEVICE Routine 02/03/2025 6 :19 PM CDT URINALYSIS, MICROSCOPIC ONLY Routine 02/03/2025 2:31 PM CDT URINE CULTURE Routine 02/03/2025 2:31 PM CDT URINALYSIS AND REFLEX TO MICROSCOPIC AND CULTURE Routine 02/03/2025 2:31 PM CDT LIDOCAINE LEVEL Timed 02/03/2025 12:37 PM CDT POCT GLUCOSE DEVICE Routine 02/03/2025 11:49 AM CDT POCT GLUCOSE DEVICE Routine 02/03/2025 8 :08 AM CDT BLOOD CULTURE Timed 02/03/2025 5:06 AM CDT BLOOD CULTURE Timed 02/03/2025 5:06 AM CDT POCT GLUCOSE DEVICE Routine 02/03/2025 3 :58 AM CDT EGFR Routine 02/03/2025 3:46 AM CDT CBC WITHOUT DIFFERENTIAL Routine 025 3:46 AM CDT LACTATE, WHOLE BLOOD Routine 02/03/2025 3:46 AM CDT BASIC METABOLIC PANEL Routine 02/03/2025 3:46 AM CDT CALCIUM, IONIZED Routine 02/03/2025 3:46 AM CDT PHOSPHORUS Routine 02/03/2025 3:46 AM CDT MAGNESIUM Routine 02/03/2025 3:46 AM CDT POTASSIUM, WHOLE BLOOD Routine 3:46 AM CDT POCT GLUCOSE DEVICE Routine 02/03/2025 12:05 AM CDT XR CHEST 1 VIEW Timed 02/02/2025 9:24 PM CDT POCT GLUCOSE DEVICE Routine 02/02/2025 7 :01 PM CDT LIDOCAINE LEVEL STAT 02/02/2025 6:19 PM CDT EGFR STAT 02/02/2025 6:19 PM CDT DIFFERENTIAL AUTO STAT 02/02/2025 6:1 9 PM CDT PHOSPHORUS STAT 02/02/2025 6:19 PM CDT MAGNESIUM STAT 02/02/2025 6:19 PM CDT BASIC METABOLIC PANEL STAT 02/02/2025 6:19 PM CDT PRO B-TYPE NATRIURETIC PEPTIDE STAT 02/02/2025 6:19 PM CDT TROPONIN I HIGH-SENSITIVITY STAT 02/02/2025 6:19 PM CDT CBC WITH AUTO DIFFERENTIAL STAT 02/02/2025 6:19 PM CDT POCT LH-F-UEL-GLU-HCT,WB - ISTAT Routine 02/02/2025 6:05 PM CDT ARTERIAL BLOOD GAS W/LACTATE Routine 02/02/2025 5:59 PM CDT XR CHEST 1 VIEW Critical/Life- Threatening 02/02/2025 5:24 PM CDT ECG 12-LEAD STAT 02/02/2025 5:20 PM CDT POCT GLUCOSE DEVICE Routine 02/02/2025 4 :36 PM CDT POCT GLUCOSE DEVICE Routine 02/02/2025 11:37 AM CDT LIDOCAINE LEVEL Timed 02/02/2025 9:45 AM CDT CBC WITHOUT DIFFERENTIAL Timed 025 9:45 AM CDT POCT GLUCOSE DEVICE Routine 02/02/2025 8 :05 AM CDT POCT GLUCOSE DEVICE Routine 02/02/2025 3 :40 AM CDT XR CHEST 1 VIEW ED Urgent/IP Urgent 02/02/2025 2:03 AM CDT CBC WITHOUT DIFFERENTIAL Timed 025 12:49 AM CDT EGFR Routine 02/02/2025 12:46 AM CDT LACTATE, WHOLE BLOOD Routine 02/02/2025 12:46 AM CDT BASIC METABOLIC PANEL Routine 02/02/2025 12:46 AM CDT CALCIUM, IONIZED Routine 02/02/2025 12:46 AM CDT PHOSPHORUS Routine 02/02/2025 12:46 AM CDT MAGNESIUM Routine 02/02/2025 12:46 AM CDT POTASSIUM, WHOLE BLOOD Routine 12:46 AM CDT POCT GLUCOSE DEVICE Routine 02/01/2025 11:00 PM CDT BLOOD GAS, VENOUS STAT 02/01/2025 10:08 PM CDT CRITICAL CARE Routine 02/01/2025 7:45 PM CDT 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 POCT GLUCOSE DEVICE Routine 02/01/2025 7 :04 PM CDT POCT GLUCOSE DEVICE Routine 02/01/2025 6 :06 PM CDT POTASSIUM, WHOLE BLOOD STAT 6:00 PM CDT RESPIRATORY PATHOGEN PANEL Routine 02/01/2025 6:00 PM CDT POC BLOOD GAS AND CHEMISTRIES, VENOUS Routine 02/01/2025 5:54 PM CDT MARKET RESEARCH SPECIALIST EVALUATE AND TREAT FIBEROPTIC ENDOSCOPIC SWALLOW Routine 02/01/2025 1:18 PM CDT BLOOD GAS, VENOUS Routine 02/01/2025 11:12 AM CDT POCT GLUCOSE DEVICE Routine 02/01/2025 11:06 AM CDT POCT GLUCOSE DEVICE Routine 02/01/2025 8 :28 AM CDT CBC WITHOUT DIFFERENTIAL Timed 025 8:13 AM CDT INFECTION PREVENTION JAYLYN AURIS PCR, SURVEILLANCE Routine 02/01/2025 8:13 AM CDT CRITICAL CARE Routine 02/01/2025 6:52 AM CDT 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 POCT GLUCOSE DEVICE Routine 02/01/2025 3 :27 AM CDT CBC WITHOUT DIFFERENTIAL Timed 025 12:19 AM CDT EGFR Routine 02/01/2025 12:18 AM CDT LACTATE, WHOLE BLOOD Routine 02/01/2025 12:18 AM CDT BASIC METABOLIC PANEL Routine 02/01/2025 12:18 AM CDT CALCIUM, IONIZED Routine 02/01/2025 12:18 AM CDT PHOSPHORUS Routine 02/01/2025 12:18 AM CDT MAGNESIUM Routine 02/01/2025 12:18 AM CDT POTASSIUM, WHOLE BLOOD Routine 12:18 AM CDT POCT GLUCOSE DEVICE Routine 01/31/2025 11:58 PM CDT XR CHEST 1 VIEW IP Routine 01/31/2025 10:38 PM CDT POCT GLUCOSE DEVICE Routine 01/31/2025 7 :46 PM CDT GENERAL Routine 01/31/2025 7:11 PM CDT Essential hypertension CRITICAL CARE Routine 01/31/2025 6:41 PM CDT 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 POTASSIUM, WHOLE BLOOD STAT 4:43 PM CDT TYPE AND SCREEN Timed 01/31/2025 4:43 PM CDT POCT GLUCOSE DEVICE Routine 01/31/2025 4 :37 PM CDT POCT GLUCOSE DEVICE Routine 01/31/2025 11:51 AM CDT XR CHEST 1 VIEW ED Urgent/IP Urgent 01/31/2025 10:44 AM CDT POCT GLUCOSE DEVICE Routine 01/31/2025 7 :19 AM CDT CRITICAL CARE Routine 01/31/2025 7:00 AM CDT Acute ischemic stroke (HCC) POCT GLUCOSE DEVICE Routine 01/31/2025 3 :11 AM CDT POCT GLUCOSE DEVICE Routine 01/31/2025 12:59 AM CDT CBC WITHOUT DIFFERENTIAL Timed 025 12:54 AM CDT EGFR Routine 01/31/2025 12:53 AM CDT LACTATE, WHOLE BLOOD Routine 01/31/2025 12:53 AM CDT BASIC METABOLIC PANEL Routine 01/31/2025 12:53 AM CDT CALCIUM, IONIZED Routine 01/31/2025 12:53 AM CDT PHOSPHORUS Routine 01/31/2025 12:53 AM CDT MAGNESIUM Routine 01/31/2025 12:53 AM CDT POTASSIUM, WHOLE BLOOD Routine 12:53 AM CDT POTASSIUM, WHOLE BLOOD STAT 10:51 PM CDT BLOOD GAS, ARTERIAL STAT 01/30/2025 10:51 PM CDT XR CHEST 1 VIEW ED Urgent/IP Urgent 01/30/2025 10:44 PM CDT CBC WITHOUT DIFFERENTIAL Timed 025 9:35 PM CDT XR CHEST 1 VIEW IP Routine 01/30/2025 9:12 PM CDT POCT GLUCOSE DEVICE Routine 01/30/2025 8 :52 PM CDT CRITICAL CARE Routine 01/30/2025 7:28 PM CDT Acute ischemic stroke (HCC) BLOOD GAS, ARTERIAL STAT 01/30/2025 5 :25 PM CDT EXTUBATION Routine 01/30/2025 4:35 PM CDT POTASSIUM, WHOLE BLOOD STAT 3:02 PM CDT POCT GLUCOSE DEVICE Routine 01/30/2025 2 :59 PM CDT LACTATE, WHOLE BLOOD Timed 01/30/2025 11:23 AM CDT CBC WITHOUT DIFFERENTIAL Timed 025 11:23 AM CDT POCT GLUCOSE DEVICE Routine 01/30/2025 11:22 AM CDT XR ABDOMEN AP 1 VIEW ED Urgent/IP Urgent 01/30/2025 9:00 AM CDT POCT GLUCOSE DEVICE Routine 01/30/2025 7 :21 AM CDT CBC WITHOUT DIFFERENTIAL Timed 025 5:25 AM CDT BLOOD GAS, ARTERIAL Timed 01/30/2025 4 :47 AM CDT LACTATE, WHOLE BLOOD Timed 01/30/2025 4:47 AM CDT POCT GLUCOSE DEVICE Routine 01/30/2025 4 :24 AM CDT BLOOD GAS, ARTERIAL Timed 01/30/2025 1 :49 AM CDT POCT GLUCOSE DEVICE Routine 01/29/2025 11:59 PM CDT TRIGLYCERIDES Routine 01/29/2025 11:51 PM CDT EGFR Routine 01/29/2025 11:51 PM CDT MAGNESIUM Routine 01/29/2025 11:51 PM CDT PHOSPHORUS Routine 01/29/2025 11:51 PM CDT POTASSIUM, WHOLE BLOOD Timed 11:51 PM CDT PROTIME-INR Routine 01/29/2025 11:51 PM CDT CREATINE KINASE (CK), TOTAL Routine 01/29/2025 11:51 PM CDT COMPREHENSIVE METABOLIC PANEL Routine 01/29/2025 11:51 PM CDT CALCIUM, IONIZED Routine 01/29/2025 11:51 PM CDT LACTATE, WHOLE BLOOD Timed 01/29/2025 11:51 PM CDT CBC WITHOUT DIFFERENTIAL Timed 025 11:51 PM CDT XR CHEST 1 VIEW Timed 01/29/2025 10:18 PM CDT POCT GLUCOSE DEVICE Routine 01/29/2025 8 :15 PM CDT CRITICAL CARE Routine 01/29/2025 6:51 PM CDT 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 CREATINE KINASE (CK), TOTAL Timed 01/29/2025 6:31 PM CDT LACTATE, WHOLE BLOOD Timed 01/29/2025 6:19 PM CDT CBC WITHOUT DIFFERENTIAL Timed 025 6:19 PM CDT TRANSFUSE PLATELETS Timed 01/29/2025 6 :00 PM CDT PREPARE PLATELETS STAT 01/29/2025 5:0 7 PM CDT POCT GLUCOSE DEVICE Routine 01/29/2025 3 :17 PM CDT TRANSFUSE RED BLOOD CELLS Timed 01/29/2025 2:18 PM CDT THROMBOELASTOMETRY PANEL - HEPARIN Routine 01/29/2025 1:46 PM CDT THROMBOELASTOMETRY PANEL - INTRINSIC Routine 01/29/2025 1:46 PM CDT THROMBOELASTOMETRY PANEL - EXTRINSIC Routine 01/29/2025 1:46 PM CDT THROMBOELASTOMETRY PANEL - FIBRINOGEN Routine 01/29/2025 1:46 PM CDT THROMBOELASTOMETRY PANEL Routine 025 1:46 PM CDT TYPE AND SCREEN Timed 01/29/2025 1:46 PM CDT PREPARE RBC STAT 01/29/2025 1:44 PM CDT CALCIUM,IONIZED, WHOLE BLOOD STAT 01/29/2025 12:50 PM CDT BLOOD GAS, ARTERIAL STAT 01/29/2025 12:50 PM CDT LACTATE, WHOLE BLOOD Timed 01/29/2025 12:50 PM CDT CBC WITHOUT DIFFERENTIAL Routine 12:50 PM CDT POCT GLUCOSE DEVICE Routine 01/29/2025 11:37 AM CDT TRANSFUSE PLATELETS Timed 01/29/2025 10:50 AM CDT POCT GLUCOSE DEVICE Routine 01/29/2025 9 :26 AM CDT TRANSFUSE CRYOPRECIPITATE (POOLED UNITS) Timed 01/29/2025 9:15 AM CDT INFECTION PREVENTION JAYLYN AURIS PCR, SURVEILLANCE Routine 01/29/2025 9:01 AM CDT POCT GLUCOSE DEVICE Routine 01/29/2025 8 :23 AM CDT TRANSFUSE PLASMA Timed 01/29/2025 7:35 AM CDT POCT GLUCOSE DEVICE Routine 01/29/2025 7 :27 AM CDT CRITICAL CARE Routine 01/29/2025 7:03 AM CDT Acute ischemic stroke (HCC) EGFR STAT 01/29/2025 5:46 AM CDT COMPREHENSIVE METABOLIC PANEL STAT 01/29/2025 5:46 AM CDT CREATINE KINASE (CK), TOTAL STAT 01/29/2025 5:46 AM CDT PREPARE CRYOPRECIPITATE (POOLED UNITS) STAT 01/29/2025 5:29 AM CDT PREPARE PLATELETS Timed 01/29/2025 5:2 8 AM CDT PREPARE PLASMA Timed 01/29/2025 5:27 AM CDT TRANSFUSE RED BLOOD CELLS Timed 01/29/2025 5:25 AM CDT THROMBOELASTOMETRY PANEL - FIBRINOGEN Routine 01/29/2025 4:56 AM CDT THROMBOELASTOMETRY PANEL - EXTRINSIC Routine 01/29/2025 4:56 AM CDT THROMBOELASTOMETRY PANEL - INTRINSIC Routine 01/29/2025 4:56 AM CDT THROMBOELASTOMETRY PANEL - HEPARIN Routine 01/29/2025 4:56 AM CDT THROMBOELASTOMETRY PANEL Routine 025 4:56 AM CDT PREPARE RBC STAT 01/29/2025 4:55 AM CDT POC BLOOD GAS AND CHEMISTRIES, ARTERIAL Routine 01/29/2025 4:19 AM CDT POC BLOOD GAS AND CHEMISTRIES, ARTERIAL Routine 01/29/2025 2:56 AM CDT POC BLOOD GAS AND CHEMISTRIES, ARTERIAL Routine 01/29/2025 1:41 AM CDT POC BLOOD GAS AND CHEMISTRIES, ARTERIAL Routine 01/29/2025 12:05 AM CDT POCT GLUCOSE DEVICE Routine 01/29/2025 12:01 AM CDT EGFR Routine 01/28/2025 11:57 PM CDT CRITICAL RESULT CALLBACK CHEMISTRY STAT 01/28/2025 11:57 PM CDT LACTATE, WHOLE BLOOD STAT 01/28/2025 11:57 PM CDT POTASSIUM, WHOLE BLOOD STAT 11:57 PM CDT BLOOD GAS, ARTERIAL STAT 01/28/2025 11:57 PM CDT PROTIME-INR Routine 01/28/2025 11:57 PM CDT CALCIUM, IONIZED Routine 01/28/2025 11:57 PM CDT PHOSPHORUS Routine 01/28/2025 11:57 PM CDT MAGNESIUM Routine 01/28/2025 11:57 PM CDT BASIC METABOLIC PANEL Routine 01/28/2025 11:57 PM CDT CBC WITHOUT DIFFERENTIAL Routine 025 11:57 PM CDT POCT GLUCOSE DEVICE Routine 01/28/2025 11:09 PM CDT POCT GLUCOSE DEVICE Routine 01/28/2025 10:29 PM CDT XR ABDOMEN AP 1 VIEW ED Urgent/IP Urgent 01/28/2025 10:22 PM CDT POC BLOOD GAS AND CHEMISTRIES, ARTERIAL Routine 01/28/2025 9:45 PM CDT CTA CHEST ABDOMINAL AORTA AND BILATERAL ILIOFEMORAL ED Urgent/IP Urgent 01/28/2025 9:04 PM CDT POC BLOOD GAS AND CHEMISTRIES, ARTERIAL Routine 01/28/2025 7:41 PM CDT CRITICAL CARE Routine 01/28/2025 7:05 PM CDT POCT GLUCOSE DEVICE Routine 01/28/2025 7 :02 PM CDT CRITICAL RESULT CALLBACK CHEMISTRY Timed 01/28/2025 6:38 PM CDT LACTATE, WHOLE BLOOD Timed 01/28/2025 6:38 PM CDT POTASSIUM, WHOLE BLOOD Timed 6:38 PM CDT CREATINE KINASE (CK), TOTAL Timed 01/28/2025 6:38 PM CDT POC BLOOD GAS AND CHEMISTRIES, ARTERIAL Routine 01/28/2025 6:26 PM CDT XR CHEST 1 VIEW ED Urgent/IP Urgent 01/28/2025 6:15 PM CDT POCT GLUCOSE DEVICE Routine 01/28/2025 6 :14 PM CDT EGFR STAT 01/28/2025 5:57 PM CDT APTT STAT 01/28/2025 5:57 PM CDT PROTIME-INR STAT 01/28/2025 5:57 PM CDT CBC WITHOUT DIFFERENTIAL STAT 025 5:57 PM CDT BASIC METABOLIC PANEL STAT 01/28/2025 5:57 PM CDT MAGNESIUM STAT 01/28/2025 5:57 PM CDT PHOSPHORUS STAT 01/28/2025 5:57 PM CDT TYPE AND SCREEN STAT 01/28/2025 5:57 PM CDT TRANSFUSE PLASMA Timed 01/28/2025 5:43 PM CDT REPOSITION ENDOTRACHEAL TUBE Routine 01/28/2025 5:18 PM CDT PREPARE PLASMA STAT 01/28/2025 5:18 PM CDT POC BLOOD GAS AND CHEMISTRIES, ARTERIAL Routine 01/28/2025 5:07 PM CDT POC BLOOD GAS AND CHEMISTRIES, ARTERIAL Routine 01/28/2025 4:32 PM CDT TRANSFUSE RED BLOOD CELLS Timed 01/28/2025 3:56 PM CDT POC BLOOD GAS AND CHEMISTRIES, ARTERIAL Routine 01/28/2025 3:53 PM CDT TRANSFUSE PLASMA Timed 01/28/2025 3:18 PM CDT PREPARE PLASMA STAT 01/28/2025 3:02 PM CDT POC BLOOD GAS AND CHEMISTRIES, ARTERIAL Routine 01/28/2025 2:47 PM CDT POCT PARTIAL THROMBOPLASTIN TIME (PTT) Routine 01/28/2025 2:46 PM CDT POCT PROTHROMBIN TIME Routine 01/28/2025 2:46 PM CDT POCT ACTIVATED CLOTTING TIME, LOW RANGE Routine 01/28/2025 2:45 PM CDT POCT PLATELET COUNT AND HEMATOCRIT Routine 01/28/2025 2:44 PM CDT POCT ACTIVATED CLOTTING TIME, LOW RANGE Routine 01/28/2025 2:41 PM CDT POCT ACTIVATED CLOTTING TIME, LOW RANGE Routine 01/28/2025 2:29 PM CDT TRANSFUSE RED BLOOD CELLS Timed 01/28/2025 2:16 PM CDT POCT ACTIVATED CLOTTING TIME, LOW RANGE Routine 01/28/2025 2:05 PM CDT TRANSFUSE RED BLOOD CELLS Timed 01/28/2025 1:57 PM CDT POC BLOOD GAS AND CHEMISTRIES, ARTERIAL Routine 01/28/2025 1:47 PM CDT POCT PROTHROMBIN TIME Routine 01/28/2025 1:46 PM CDT POCT PARTIAL THROMBOPLASTIN TIME (PTT) Routine 01/28/2025 1:46 PM CDT POCT ACTIVATED CLOTTING TIME, LOW RANGE Routine 01/28/2025 1:39 PM CDT POCT ACTIVATED CLOTTING TIME, LOW RANGE Routine 01/28/2025 1:29 PM CDT POC BLOOD GAS AND CHEMISTRIES, ARTERIAL Routine 01/28/2025 12:59 PM CDT POCT ACTIVATED CLOTTING TIME, LOW RANGE Routine 01/28/2025 12:53 PM CDT POCT ACTIVATED CLOTTING TIME, LOW RANGE Routine 01/28/2025 12:27 PM CDT POCT ACTIVATED CLOTTING TIME, LOW RANGE Routine 01/28/2025 12:12 PM CDT POCT ACTIVATED CLOTTING TIME, LOW RANGE Routine 01/28/2025 11:34 AM CDT AK AN PROCEDURE PLACEHOLDER Routine 01/28/2025 10:44 AM CDT POC BLOOD GAS AND CHEMISTRIES, ARTERIAL Routine 01/28/2025 10:44 AM CDT POCT ACTIVATED CLOTTING TIME, LOW RANGE Routine 01/28/2025 10:31 AM CDT POCT ACTIVATED CLOTTING TIME, LOW RANGE Routine 01/28/2025 10:23 AM CDT AK AN PROCEDURE PLACEHOLDER Routine 01/28/2025 9:29 AM CDT BW AN SHEATH INTRODUCER PERFORMABLE Routine 01/28/2025 9:29 AM CDT AK AN PROCEDURE PLACEHOLDER Routine 01/28/2025 9:28 AM CDT AK AN CENTRAL LINE QUADRUPLE LUMEN Routine 01/28/2025 9:28 AM CDT AK AN PROCEDURE PLACEHOLDER Routine 01/28/2025 9:05 AM CDT AK AN PROCEDURE PLACEHOLDER Routine 01/28/2025 9:04 AM CDT AK AN ELECTIVE ENDOTRACHEAL AIRWAY Routine 01/28/2025 9:04 AM CDT BYPASS - CAROTID SUBCLAVIAN 01/28/2025 8:28 AM CDT 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 Dunbar's blank DPC. [id number]/27@1518: Per Malina via case msg, each surgeon needs 180 mins each for a total of 360 mins. Case was moved to OR [address] Melissa's request. Sent email to OR resource nurse for blank dpc. SR 12/26/2024 Move to 01/28 @ 830 per Malina. TB 12/24@0754- Per Emma via case msg needs to edit case- [id number] Message to Malina in regard to Hussein being on POD 5 for imbedded case. 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 Dunbar's blank DPC. [id number]/27@1518: Per Malina via case msg, each surgeon needs 180 mins each for a total of 360 mins. Case was moved to OR [address] Melissa's request. Sent email to OR resource nurse for blank dpc. SR 12/26/2024 Move to 01/28 @ 830 per Malina. TB 12/24@0754- Per Juaneece via case msg needs to edit case- [id number]/05/24 Message to Malina in regard to Hussein being on POD 5 for imbedded case. 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 Dunbar's blank DPC. [id number]@1518: Per Malina via case msg, each surgeon needs 180 mins each for a total of 360 mins. Case was moved to OR [address] Melissa's request. Sent email to OR resource nurse for blank dpc. SR 12/26/2024 Move to 01/28 @ 830 per Malina. TB 12/24@0754- Per Juaneece via case msg needs to edit case- [id number]/05/24 Message to Malina in regard to Hussein being on POD 5 for imbedded case. TB DES ADD-ON FOR OR Routine 01/28/2025 6:5 9 AM CDT PREPARE RBC Timed 01/28/2025 6:57 AM CDT EGFR Routine 01/24/2025 4:44 PM CDT Preoperative testing DIFFERENTIAL AUTO Routine 01/24/2025 4:4 4 PM CDT Preoperative testing URINALYSIS, MICROSCOPIC ONLY Routine 01/24/2025 4:44 PM CDT Preoperative testing CPAP APTT ALGORITHM Routine 01/24/2025 4 :44 PM CDT Preoperative testing PROTIME-INR Routine 01/24/2025 4:44 PM CDT Preoperative testing Coronary artery disease, unspecified vessel or lesion type, unspecified whether angina present, unspecified whether [place] or transplanted heart TYPE AND SCREEN 14 DAY Routine 4:44 PM CDT Preoperative testing CBC WITH AUTO DIFFERENTIAL Routine 01/24/2025 4:44 PM CDT Preoperative testing BASIC METABOLIC PANEL Routine 01/24/2025 4:44 PM CDT Preoperative testing URINALYSIS AND REFLEX TO MICROSCOPIC AND CULTURE Routine 01/24/2025 4:44 PM CDT Preoperative testing ECG 12-LEAD Routine 01/24/2025 4:27 PM CDT Preoperative testing HEPATITIS C AB W/REFL TO HCV RNA, QN, PCR (REFL) Routine 03/03/2018 10:07 AM CDT Polyarthralgia Fatigue, unspecified type from Last 3 Months or Most Recently Relevant to Health Maintenance Results * POCT glucose (02/07/2025 11:22 AM CDT) Glucose, POC 110 70 - 199 mg/dL Blood 02/07/2025 11:2 2 AM CDT 02/07/2025 11:22 AM CDT us Gerardo Melissa MD LAB POCT ORDERABLES - DEVICE Final Result Performing Organization Address [facility] Co de Phone Number [facility] [place] [address] * POCT glucose (02/07/2025 8:44 AM CDT) Glucose, POC 100 70 - 199 mg/dL Blood 02/07/2025 8:44 AM CDT 02/07/2025 8:44 AM CDT us Gerardo Melissa MD LAB POCT ORDERABLES - DEVICE Final Result Performing Organization Address [facility] Co de Phone Number [facility] Department [place] [address] * eGFR (02/07/2025 5:47 AM CDT) Pathologist [facility] [place] eGFR 81 >=60 mL/min/1. 73 m2 Comment: Interpretive Data [...] interpretive data was last reviewed 2021. Blood 02/07/2025 5:47 AM CDT 02/07/2025 6:18 AM CDT us Gisella Wilkinson NP LAB BLOOD ORDERABLES Final Re sult [facility] [place] [address] * (ABNORMAL) Differential, auto (02/07/2025 5:47 AM CDT) Pathologist [facility] Neutrophil abs 10.23(H) 1.50 - 6.50 K/cumm Imm gran abs 0.57(H) 0.00 - 0.10 K/cumm [facility] Lymphocyte abs 2.77 0.80 - 3.30 K/cumm [facility] Monocyte abs 1.27(H) 0.20 - 0.80 K/cumm [facility] Eosinophil abs 0.40 0.00 - 0.50 K/cumm [facility] Basophil abs 0.08 0.00 - 0.10 K/cumm [facility] Neutrophil pct 66.8 % [facility] Comment: Interpretive Data Percent cell count reference ranges are not reported, since discordance with absolute values may lead to misinterpretation of CBC data. Current Interpretive Data was last revised on 2017. Imm gran pct 3.7 % [facility] Comment: Interpretive Data Percent cell count reference ranges are not reported, since discordance with absolute values may lead to misinterpretation of CBC data. Current Interpretive Data was last revised on 2017. Lymphocyte pct 18.1 % [facility] Comment: Interpretive Data Percent cell count reference ranges are not reported, since discordance with absolute values may lead to misinterpretation of CBC data. Current Interpretive Data was last revised on 2017. Monocyte pct 8.3 % [facility] Comment: Interpretive Data Percent cell count reference ranges are not reported, since discordance with absolute values may lead to misinterpretation of CBC data. Current Interpretive Data was last revised on 2017. Eosinophil pct 2.6 % [facility] Comment: Interpretive Data Percent cell count reference ranges are not reported, since discordance with absolute values may lead to misinterpretation of CBC data. Current Interpretive Data was last revised on 2017. Basophil pct 0.5 % [facility] Comment: Interpretive Data Percent cell count reference ranges are not reported, since discordance with absolute values may lead to misinterpretation of CBC data. Current Interpretive Data was last revised on 2017. Blood 02/07/2025 5:47 AM CDT 02/07/2025 6:25 AM CDT Gisella Wilkinson SURFACE SUPPLY BREATHING APPARATUS LAB BLOOD ORDERABLES Final Re sult [facility] [place] [address] * Calcium, ionized (02/07/2025 5:47 AM CDT) Calcium, Ionized 4.50 4.50 - 5.10 mg/dL Blood 02/07/2025 5:47 AM CDT 02/07/2025 6:18 AM CDT Gisella Wilkinson SURFACE SUPPLY BREATHING APPARATUS LAB BLOOD ORDERABLES Final Re sult [facility] [place] [address] * (ABNORMAL) CBC with auto differential (02/07/2025 5:47 AM CDT) WBC 15.32(H) 3.80 - 9.90 K/cumm Hgb 7.7(L) 11.9 - 15.5 g/dL [facility] Hct 23.3(L) 35.6 - 45.5 % [facility] Plt 432(H) 150 - 400 K/cumm [facility] MPV 9.7 9.1 - 12.3 fL [facility] RBC 2.60(L) 3.90 - 5.20 M/cumm [facility] MCV 89.6 81.3 - 96.4 fL [facility] MCH 29.6 27.1 - 33.3 pg [facility] MCHC 33.0 32.3 - 35.7 g/dL [facility] RDW CV 17.3(H) 11.1 - 14.9 % [facility] RDW SD 53.5(H) 35.7 - 48.1 fL [facility] NRBC abs 0.04(H) 0.00 - 0.01 K/cumm [facility] Blood 02/07/2025 5:47 AM CDT 02/07/2025 6:25 AM CDT Gisella Wilkinson SURFACE SUPPLY BREATHING APPARATUS LAB BLOOD ORDERABLES Final Re sult [facility] [place] [address] * Type and screen (02/07/2025 5:47 AM CDT) ABO Rh B Positive Taiwo, indirect Negative [facility] Blood 02/07/2025 5:47 AM CDT 02/07/2025 6:26 AM CDT Narrative [facility] - 02/07/2025 7:29 AM CDT Has the patient had Daratumumab or Isatuximab in the past 6 months?->Unknown us Kenny Hammerfidel SURFACE SUPPLY BREATHING APPARATUS LAB BLOOD BANK TEST ORDERAB LES Final Result Performing Organization Address City/[facility]/ZIP Co de Phone Number [facility] Department [place] [address] * Basic metabolic panel (02/07/2025 5:47 AM CDT) [facility] Sodium 138 135 - 145 mmol/L Potassium, pl 3.4 3.3 - 4.9 mmol/L [facility] Chloride 101 97 - 110 mmol/L [facility] CO2 28 22 - 32 mmol/L [facility] Anion gap 9 2 - 15 mmol/L [facility] BUN 14 6 - 25 mg/dL [facility] Creatinine 0.79 0.60 - 1.10 mg/dL [facility] Glucose 97 70 - 199 mg/dL [facility] Comment: Interpretive Data Fasting glucose >/= 126 [...] interpretive data was last revised 2022. Calcium 8.6 8.5 - 10.3 mg/dL [facility] Blood 02/07/2025 5:47 AM CDT 02/07/2025 6:18 AM CDT us Gisella Wilkinson SURFACE SUPPLY BREATHING APPARATUS LAB BLOOD ORDERABLES Final Re sult Performing Organization Address City/[facility]/ZIP Co de Phone Number [facility] [place] [address] * FL Modified Barium Swallow W Video (02/06/2025 1:33 PM CDT) Anatomical Region Laterality Modality Head and Neck N/A Radio Fluoroscop y 02/06/2025 1:56 PM CDT Impressions 02/06/2025 2:11 PM CDT The swallowing mechanism is normal; see above comments. Please refer to the Speech Pathology procedure note for safe swallow recommendations as well as additional information regarding the oral-pharyngeal swallow function, plan of care, and recommended follow up. Dictated by: Rakan Fernandez M.D. The radiology attending physician has personally reviewed this study, and had reviewed and/or edited this written report and agrees with it. Electronically signed by: Jeovany Devi M.D. Narrative 02/06/2025 2:11 PM CDT EXAMINATION: MODIFIED BARIUM SWALLOW HISTORY: Dysphagia. TECHNIQUE: This procedure was completed in conjunction with a Speech Language Pathologist. The patient was given barium of multiple different consistencies to swallow. Video fluoroscopy was employed during the exam. FINDINGS: Oral-pharyngeal swallow function is normal. Penetration: Yes There is penetration of thin liquid, nectar thick liquid. The penetrated material is cleared. Aspiration: No Residue:No Other comments: None Procedure Note Jeovany Devi MD - 02/06/2025 EXAMINATION: MODIFIED BARIUM SWALLOW HISTORY: Dysphagia. TECHNIQUE: This procedure was completed in conjunction with a Speech Language Pathologist. The patient was given barium of multiple different consistencies to swallow. Video fluoroscopy was employed during the exam. FINDINGS: Oral-pharyngeal swallow function is normal. Penetration: Yes There is penetration of thin liquid, nectar thick liquid. The penetrated material is cleared. Aspiration: No Residue:No Other comments: None IMPRESSION: The swallowing mechanism is normal; see above comments. Please refer to the Speech Pathology procedure note for safe swallow recommendations as well as additional information regarding the oral-pharyngeal swallow function, plan of care, and recommended follow up. Dictated by: Rakan Fernandez M.D. The radiology attending physician has personally reviewed this study, and had reviewed and/or edited this written report and agrees with it. Electronically signed by: Jeovany Devi M.D. us Laurel Kaminski SURFACE SUPPLY BREATHING APPARATUS IMG FLUOROSCOPY PROCED URES Final Result * MARKET RESEARCH SPECIALIST Evaluate and Treat (VFSS) (02/06/2025 1:24 PM CDT) Darlene Luciano, MARKET RESEARCH SPECIALIST - 02/06/2025 1:24 PM CDT Darlene Mcconnell MARKET RESEARCH SPECIALIST 02/06/2025 3:38 PM Speech-Language Pathology: Videofluoroscopic Study of Swallow (VFSS/MBS) HPI/PMH 69 y.o. female PMHx: chronic pain, CVA, CAD s/p PCI x2 DAVION on Plavix/ASA (11/05/24), prior tobacco use, GERD, PAD, HTN, HLD & hypothyroidism. admitted for planned redo ascending aorta to subclavian and carotid bifurcation bypass for subclavian steal syndrome w/ vascular surgery 01/28: OR (Vasc-Dr. Melissa) s/p redo sternotomy, ascending Ao to R subclavian (10mm Gelweave) & R carotid artery (8mm [place] PTFE) bypass & R carotid endarterectomy - 01/29: 1u PRBC, 1u PLT, no cuff leak. PPI BID - 01/30: extubated MARKET RESEARCH SPECIALIST hx: 07/26/24 CSE recommended regular/thin Respiratory/Intubation Status:intubated 01/28-01/30, now on 3L Imaging: CXR 01/31: Increased left-sided pleural effusion with associated atelectasis. Precautions: Fall Current Diet Order: Regular diet, [place] thick liquids Baseline Diet: Regular diet, Thin liquids General Information Ethel Hobson 02/06/25 MARKET RESEARCH SPECIALIST Received On: 02/06/25 General Observations: Pt alert and cooperative, eager to advance liquids. Reason for Referral: Advance liquids as clinically appropriate Pain Score: 2 If pain >4, was RN notified? N/A Patient Stated Goal/Comments: Stop drinking thickened water Clinical Impression & Professional Recommendations Diet Solids Recommendation: Regular Diet Liquids Recommendations: Thin/regular Recommended Form of Medications: As tolerated Compensatory Strategies/Modifications: Single sips, Small bites Postural Recommendations: Upright Assistance with feeding/swallowing: Setup only Specialty Instructions: Good oral care 2-3x/day Overall Clinical Impression/Additional Information: Oral-pharyngeal swallow function is assessed to be WFL. Oral phase significant for premature spill prior to swallow initiation. Pharyngeal function WFL. Transient penetration seen with larger drinks of thin and nectar thick liquids. Otherwise no penetration or aspiration with any consistency. No remarkable oral or pharyngeal residue. Pt is appropriate for advancing liquids. No further MARKET RESEARCH SPECIALIST indicated. Assessment Details & Results Purpose and Procedure of Videofluoroscopic Study of Swallow: Videofluoroscopic Study of Swallow completed to assess oropharyngeal swallow function and safety/efficiency of the swallow so that diet recommendations can be made. This test is completed in conjunction with Radiology. Results of this test are indicative of performance at the time of the exam. Standard procedure is in lateral view at 90 degrees. Consistencies Administered: Thin liquids, Douglass thickened liquids, Purees, Solids Administered consistencies contain barium product. Thin Liquids: Laryngeal Penetration: Present Aspiration Present: No Penetration Aspiration Scale-Thin: 2-Material enters the airway, remains above the vocal folds and is ejected from the airway Douglass Thickened Liquids: Laryngeal Penetration: Present Aspiration Present: No Penetration Aspiration Scale-Douglass: 2-Material enters the airway, remains above the vocal folds and is ejected from the airway Purees: Laryngeal Penetration: None Aspiration Present: No Penetration Aspiration Scale-Puree: 1-Material does not enter airway Solids: Laryngeal Penetration: None Aspiration Present: No Penetration Aspiration Scale-Solids: 1-Material does not enter airway MBSImp: MBSImp Results: Lip closure : 0-No labial escape Tongue Control with Bolus Hold: 0-Cohesive bolus between tongue to palatal seal Bolus Preparation/Mastication : 1-Slow prolonged chewing/mashing with complete re-collection Bolus Transport/Lingual Motion : 1-Delayed initiation of tongue motion Oral Residue: 1-Trace residue lining oral structures (normal variant) Initiation of Pharyngeal Swallow : 3-Bolus head in pyriforms Soft Palate : 0-No bolus between soft palate and pharyngeal wall Laryngeal Elevation : 0-Complete superior movement of thyroid cartilage with complete approximation of arytenoids to epiglottic petiole Anterior Hyoid Excursion: 1-Partial anterior movement Epiglottic Movement: 0-Complete inversion Laryngeal Vestibular Closure: 0-Complete, no air/contrast in the laryngeal vestibule Pharyngeal Stripping Wave: 0-Present and complete Pharyngeal Contraction (AP view only): Not assessed, No AP view Pharyngoesophageal Segment Opening : 0-Complete distention and complete duration, no obstruction of flow Tongue Base Retraction : 1-Trace column of contrast or air between tongue base and posterior pharyngeal wall (normal variant) Pharyngeal Residue : 1-Trace residue within or on pharyngeal structures (normal variant) Esophageal Clearance (upright position): Not assessed, No AP view Dysphagia Outcome and Severity Scale: Dysphagia Outcomes and Severity Scale: 7 Normal Levels 1 & 2 on the NADEEM indicate need for nonoral nutrition. Treatment Treatment was not provided this date. Please reference care plan for treatment goals and details, if indicated. Plan MARKET RESEARCH SPECIALIST Frequency of Services during current admission: 0 MARKET RESEARCH SPECIALIST Recommendation (Add'l Services): No further MARKET RESEARCH SPECIALIST indicated Next Visit Plan: No further ST warranted Additional Referrals: None Discharge Summary Statement If this is the last swallow therapy visit, this serves as the discharge summary. us Laurel Kaminski NP MARKET RESEARCH SPECIALIST ORDERABLES Final Result * eGFR (02/06/2025 2:38 AM CDT) eGFR 80 >=60 mL/min/1. 73 m2 Comment: Interpretive Data [...] interpretive data was last reviewed 2021. Blood 02/06/2025 2:38 AM CDT 02/06/2025 3:37 AM CDT us Lucy Haas NP LAB BLOOD ORDERABLES Final Res ult [facility] Department [place] [address] * (ABNORMAL) Calcium, ionized (02/06/2025 2:38 AM CDT) [facility] Calcium, Ionized 4.21(L) 4.50 - 5.10 mg/dL Blood 02/06/2025 2:38 AM CDT 02/06/2025 3:28 AM CDT Lucy Haas SURFACE SUPPLY BREATHING APPARATUS LAB BLOOD ORDERABLES Final Res ult Performing Organization Address City/[facility]/ZIP Co de Phone Number [facility] [place] [address] * Lactate, whole blood (02/06/2025 2:38 AM CDT) [facility] Lactate, bld 0.9 0.7 - 2.0 mmol/L Blood 02/06/2025 2:38 AM CDT 02/06/2025 3:27 AM CDT Gerardo Melissa MD LAB BLOOD [place] [address] * (ABNORMAL) CBC without differential (02/06/2025 2:38 AM CDT) [facility] WBC 13.18(H) 3.80 - 9.90 K/cumm Hgb 7.7(L) 11.9 - 15.5 g/dL [facility] Hct 23.0(L) 35.6 - 45.5 % [facility] Plt 339 150 - 400 K/cumm [facility] MPV 10.1 9.1 - 12.3 fL [facility] RBC 2.59(L) 3.90 - 5.20 M/cumm [facility] MCV 88.8 81.3 - 96.4 fL [facility] MCH 29.7 27.1 - 33.3 pg [facility] MCHC 33.5 32.3 - 35.7 g/dL [facility] RDW CV 16.7(H) 11.1 - 14.9 % [facility] RDW SD 51.5(H) 35.7 - 48.1 fL [facility] NRBC abs 0.04(H) 0.00 - 0.01 K/cumm [facility] Blood 02/06/2025 2:38 AM CDT 02/06/2025 3:35 AM CDT us Gerardo Melissa MD LAB BLOOD ORDERABLES Final Re sult [facility] [place] [address] * Basic metabolic panel (02/06/2025 2:38 AM CDT) Sodium 139 135 - 145 mmol/L Potassium, pl 3.6 3.3 - 4.9 mmol/L [facility] Chloride 102 97 - 110 mmol/L [facility] CO2 28 22 - 32 mmol/L [facility] Anion gap 9 2 - 15 mmol/L [facility] BUN 17 6 - 25 mg/dL [facility] Creatinine 0.80 0.60 - 1.10 mg/dL [facility] Glucose 104 70 - 199 mg/dL [facility] Comment: Interpretive Data Fasting glucose >/= 126 [...] 2022. Calcium 8.5 8.5 - 10.3 mg/dL [facility] Blood 02/06/2025 2:38 AM CDT 02/06/2025 3:28 AM CDT Lucy Haas SURFACE SUPPLY BREATHING APPARATUS LAB BLOOD ORDERABLES Final Res ult Performing Organization Address [facility] Co de Phone Number [facility] [place] [address] * POCT glucose (02/05/2025 6:03 PM CDT) Glucose, POC 150 70 - 199 mg/dL Blood 02/05/2025 6:03 PM CDT 02/05/2025 6:03 PM CDT Gerardo Melissa MD LAB POCT ORDERABLES - DEVICE Final Result Performing Organization Address [facility] de Phone Number [facility] [place] [address] * POCT glucose (02/05/2025 11:20 AM CDT) Glucose, POC 117 70 - 199 mg/dL Blood 02/05/2025 11:2 0 AM CDT 02/05/2025 11:20 AM CDT us Gerardo Melisas MD LAB POCT ORDERABLES - DEVICE Final Result Performing Organization Address [facility] Co de Phone Number [facility] [place] [address] * POCT glucose (02/05/2025 9:00 AM CDT) Glucose, POC 121 70 - 199 mg/dL Comment:Glu2: RN/MD Notified Glucose comment 1 Glu2: RN/MD Notified [facility] Blood 02/05/2025 9:00 AM CDT 02/05/2025 9:00 AM CDT us Gerardo Melissa MD LAB POCT ORDERABLES - DEVICE Final Result Performing Organization Address [facility] de Phone Number [facility] [place] [address] * eGFR (02/05/2025 5:54 AM CDT) eGFR 81 >=60 mL/min/1. 73 m2 Comment: Interpretive Data [...] interpretive data was last reviewed 2021. Blood 02/05/2025 5:54 AM CDT 02/05/2025 6:06 AM CDT Lucy Haas SURFACE SUPPLY BREATHING APPARATUS LAB BLOOD ORDERABLES Final Res ult Performing Organization Address [facility] de Phone Number [facility] [place] [address] * (ABNORMAL) Calcium, ionized (02/05/2025 5:54 AM CDT) Calcium, Ionized 4.48(L) 4.50 - 5.10 mg/dL Blood 02/05/2025 5:54 AM CDT 02/05/2025 6:06 AM CDT Lucy Haas SURFACE SUPPLY BREATHING APPARATUS LAB BLOOD ORDERABLES Final Res ult Performing Organization Address [facility] Co de Phone Number [facility] [place] [address] * Lactate, whole blood (02/05/2025 5:54 AM CDT) [facility] Lactate, bld 0.9 0.7 - 2.0 mmol/L Blood 02/05/2025 5:54 AM CDT 02/05/2025 6:04 AM CDT Gerardo Melissa MD LAB BLOOD ORDERABLES Final Re sult Performing Organization Address [facility] [place] [address] * Lidocaine level (02/05/2025 5:54 AM CDT) [facility] Lidocaine (Xylocaine) 2.1 1.5 - 5.0 mcg/mL Blood 02/05/2025 5:54 AM CDT 02/05/2025 6:06 AM CDT Narrative [facility] - 02/05/2025 6:36 AM CDT Draw 24 hours after infusion started. us Gerardo Melissa MD LAB BLOOD ORDERABLES Final Re sult Performing Organization Address [facility] Co de Phone Number [facility] [place] [address] * (ABNORMAL) CBC without differential (02/05/2025 5:54 AM CDT) [facility] WBC 13.03(H) 3.80 - 9.90 K/cumm Hgb 8.1(L) 11.9 - 15.5 g/dL [facility] Hct 24.1(L) 35.6 - 45.5 % [facility] Plt 321 150 - 400 K/cumm [facility] MPV 10.2 9.1 - 12.3 fL [facility] RBC 2.72(L) 3.90 - 5.20 M/cumm [facility] MCV 88.6 81.3 - 96.4 fL [facility] MCH 29.8 27.1 - 33.3 pg [facility] MCHC 33.6 32.3 - 35.7 g/dL [facility] RDW CV 16.8(H) 11.1 - 14.9 % [facility] RDW SD 51.5(H) 35.7 - 48.1 fL [facility] NRBC abs 0.04(H) 0.00 - 0.01 K/cumm [facility] Blood 02/05/2025 5:54 AM CDT 02/05/2025 6:06 AM CDT Gerardo Melissa MD LAB BLOOD ORDERABLES Final Re sult [facility] [place] [address] * Basic metabolic panel (02/05/2025 5:54 AM CDT) Pathologist [facility] Sodium 139 135 - 145 mmol/L Potassium, pl 3.6 3.3 - 4.9 mmol/L [facility] Chloride 99 97 - 110 mmol/L [facility] CO2 29 22 - 32 mmol/L [facility] Anion gap 11 2 - 15 mmol/L [facility] BUN 21 6 - 25 mg/dL [facility] Creatinine 0.79 0.60 - 1.10 mg/dL [facility] Glucose 118 70 - 199 mg/dL [facility] Comment: Interpretive Data Fasting glucose >/= 126 [...] interpretive data was last revised 2022. Calcium 8.7 8.5 - 10.3 mg/dL [facility] Blood 02/05/2025 5:54 AM CDT 02/05/2025 6:06 AM CDT Lucy Haas SURFACE SUPPLY BREATHING APPARATUS LAB BLOOD ORDERABLES Final Res ult Performing Organization Address [facility] de Phone Number [facility] [place] [address] * POCT glucose (02/04/2025 5:43 PM CDT) Glucose, POC 130 70 - 199 mg/dL Blood 02/04/2025 5:43 PM CDT 02/04/2025 5:43 PM CDT Gerardo Melissa MD LAB POCT ORDERABLES - DEVICE Final Result Performing Organization Address [facility] Co de Phone Number [facility] [place] [address] * POCT glucose (02/04/2025 12:25 PM CDT) Glucose, POC 155 70 - 199 mg/dL Blood 02/04/2025 12:2 5 PM CDT 02/04/2025 12:25 PM CDT Gerardo Melissa MD LAB POCT ORDERABLES - DEVICE Final Result Performing Organization Address [facility] de Phone Number [facility] [place] [address] * Lidocaine level (02/04/2025 10:12 AM CDT) Lidocaine (Xylocaine) 2.7 1.5 - 5.0 mcg/mL Blood 02/04/2025 10:1 2 AM CDT 02/04/2025 10:50 AM CDT Narrative [facility] - 02/04/2025 11:23 AM CDT Draw 24 hours after infusion started. us Rey Marrufo MD PhD LAB BLOOD ORDERABLES Final Result Performing Organization Address [facility] Co de Phone Number [facility] [place] [address] * POCT glucose (02/04/2025 8:28 AM CDT) Glucose, POC 114 70 - 199 mg/dL Blood 02/04/2025 8:28 AM CDT 02/04/2025 8:28 AM CDT us Gerardo Melissa MD LAB POCT ORDERABLES - DEVICE Final Result Performing Organization Address [facility] de Phone Number [facility] [place] [address] * POCT glucose (02/04/2025 4:07 AM CDT) Glucose, POC 115 70 - 199 mg/dL Blood 02/04/2025 4:07 AM CDT 02/04/2025 4:07 AM CDT us Gerardo Melissa MD LAB POCT ORDERABLES - DEVICE Final Result Performing Organization Address [facility] de Phone Number [facility] [place] [address] * Potassium, whole blood (02/04/2025 1:13 AM CDT) Potassium, bld 3.5 3.3 - 4.9 mmol/L Blood 02/04/2025 1:13 AM CDT 02/04/2025 1:23 AM CDT Kenny Birmingham NP LAB BLOOD ORDERABLES Final Result Performing Organization Address [facility]/ZIP Co de Phone Number [facility] [place] [address] * eGFR (02/04/2025 1:13 AM CDT) eGFR 69 >=60 mL/min/1. 73 m2 Comment: Interpretive Data [...] interpretive data was last reviewed 2021. Blood 02/04/2025 1:13 AM CDT 02/04/2025 1:23 AM CDT Lucy Haas SURFACE SUPPLY BREATHING APPARATUS LAB BLOOD ORDERABLES Final Res ult Performing Organization Address City/[facility]/ZIP Co de Phone Number KRISTIE [facility] [place] [address] * (ABNORMAL) Calcium, ionized (02/04/2025 1:13 AM CDT) Calcium, Ionized 4.46(L) 4.50 - 5.10 mg/dL Blood 02/04/2025 1:13 AM CDT 02/04/2025 1:23 AM CDT Lucy Haas SURFACE SUPPLY BREATHING APPARATUS LAB BLOOD ORDERABLES Final Res ult [facility] [place] [address] * Lactate, whole blood (02/04/2025 1:13 AM CDT) [facility] Lactate, bld 1.0 0.7 - 2.0 mmol/L Blood 02/04/2025 1:13 AM CDT 02/04/2025 1:23 AM CDT Gerardo Melissa MD LAB BLOOD [place] [address] * Lidocaine level (02/04/2025 1:13 AM CDT) [facility] Lidocaine (Xylocaine) 2.3 1.5 - 5.0 mcg/mL Blood 02/04/2025 1:13 AM CDT 02/04/2025 1:25 AM CDT Narrative [facility] - 02/04/2025 1:54 AM CDT Draw 24 hours after infusion started. Rey Marrufo MD PhD LAB BLOOD ORDERABLES Final Result Performing Organization Address City/[facility]/ZIP Co de Phone Number [facility] [place] [address] * (ABNORMAL) CBC without differential (02/04/2025 1:13 AM CDT) [facility] WBC 14.36(H) 3.80 - 9.90 K/cumm Hgb 7.8(L) 11.9 - 15.5 g/dL [facility] Hct 23.1(L) 35.6 - 45.5 % [facility] Plt 248 150 - 400 K/cumm [facility] MPV 10.5 9.1 - 12.3 fL [facility] RBC 2.60(L) 3.90 - 5.20 M/cumm [facility] MCV 88.8 81.3 - 96.4 fL [facility] MCH 30.0 27.1 - 33.3 pg [facility] MCHC 33.8 32.3 - 35.7 g/dL [facility] RDW CV 17.0(H) 11.1 - 14.9 % [facility] RDW SD 53.2(H) 35.7 - 48.1 fL [facility] NRBC abs 0.07(H) 0.00 - 0.01 K/cumm [facility] Blood 02/04/2025 1:13 AM CDT 02/04/2025 1:25 AM CDT us Gerardo Melissa MD LAB BLOOD ORDERABLES Final Re sult Performing Organization Address City/[facility]/ZIP Co de Phone Number [facility] [place] [address] * Type and screen (02/04/2025 1:13 AM CDT) ABO Rh B Positive Taiwo, indirect Negative [facility] Blood 02/04/2025 1:13 AM CDT 02/04/2025 1:27 AM CDT Narrative [facility] - 02/04/2025 2:19 AM CDT Has the patient had Daratumumab or Isatuximab in the past 6 months?->Unknown us Yesh Mayelin Birmingham NP LAB BLOOD BANK TEST ORDERAB LES Final Result [facility] [place] [address] * Phosphorus (02/04/2025 1:13 AM CDT) Phosphorus, pl 2.8 2.3 - 4.5 mg/dL Blood 02/04/2025 1:13 AM CDT 02/04/2025 1:23 AM CDT us Yesh Mayelin Birmingham SURFACE SUPPLY BREATHING APPARATUS LAB BLOOD ORDERABLES Final Result Performing Organization Address City/[facility]/ZIP Co de Phone Number [facility] [place] [address] * Magnesium (02/04/2025 1:13 AM CDT) [facility] Magnesium 2.2 1.4 - 2.5 mg/dL Blood 02/04/2025 1:13 AM CDT 02/04/2025 1:23 AM CDT Yes Mayelin Jaquelinfidel SURFACE SUPPLY BREATHING APPARATUS LAB BLOOD ORDERABLES Final Result Performing Organization Address [facility] de Phone Number [facility] [place] [address] * (ABNORMAL) Basic metabolic panel (02/04/2025 1:13 AM CDT) [facility] Sodium 138 135 - 145 mmol/L Potassium, pl 3.6 3.3 - 4.9 mmol/L [facility] Chloride 98 97 - 110 mmol/L [facility] CO2 30 22 - 32 mmol/L [facility] Anion gap 10 2 - 15 mmol/L [facility] BUN 27(H) 6 - 25 mg/dL [facility] Creatinine 0.91 0.60 - 1.10 mg/dL [facility] Glucose 121 70 - 199 mg/dL [facility] Comment: Interpretive Data Fasting glucose >/= 126 [...] interpretive data was last revised 2022. Calcium 9.0 8.5 - 10.3 mg/dL [facility] Blood 02/04/2025 1:13 AM CDT 02/04/2025 1:23 AM CDT Lucy Haas SURFACE SUPPLY BREATHING APPARATUS LAB BLOOD ORDERABLES Final Res ult Performing Organization Address [facility] Co de Phone Number [facility] [place] [address] * POCT glucose (02/03/2025 11:57 PM CDT) Glucose, POC 134 70 - 199 mg/dL Blood 02/03/2025 11:5 7 PM CDT 02/03/2025 11:57 PM CDT Gerardo Melissa MD LAB POCT ORDERABLES - DEVICE Final Result Performing Organization Address [facility] de Phone Number [facility] [place] [address] * POCT glucose (02/03/2025 9:22 PM CDT) Glucose, POC 113 70 - 199 mg/dL Blood 02/03/2025 9:22 PM CDT 02/03/2025 9:22 PM CDT us Gerardo Melissa MD LAB POCT ORDERABLES - DEVICE Final Result Performing Organization Address [facility] Co de Phone Number [facility] [place] [address] * POCT glucose (02/03/2025 7:46 PM CDT) Glucose, POC 165 70 - 199 mg/dL Blood 02/03/2025 7:46 PM CDT 02/03/2025 7:46 PM CDT us Gerardo Melissa MD LAB POCT ORDERABLES - DEVICE Final Result Performing Organization Address [facility]/ZIP Co de Phone Number [facility] [place] [address] * POCT glucose (02/03/2025 6:19 PM CDT) Glucose, POC 117 70 - 199 mg/dL Comment:Glu2: RN/MD Notified Glucose comment 1 Glu2: RN/MD Notified [facility] Blood 02/03/2025 6:19 PM CDT 02/03/2025 6:19 PM CDT us Gerardo Melissa MD LAB POCT ORDERABLES - DEVICE Final Result Performing Organization Address [facility] Co de Phone Number [facility] [place] [address] * (ABNORMAL) Urinalysis reflex to microscopic and culture Urine (02/03/2025 2:31 PM CDT) Pathologist [facility] Color, ur Straw Yellow Clarity, ur Clear Clear [facility] Specific gravity, ur 1.017 1.003 - 1.030 [facility] pH, urine 6.0 [facility] Comment: Interpretive Data U rine pH is affected by diet, medications, systemic acid-base disturbances, and renal tubular function. pH may affect urinary stone formation. For example, urine pH below 6.0 may help reduce the tendency for calcium phosphate stones and pH greater than 6.0 may reduce the tendency for uric acid stone formation. Source: [facility] [employer] Current Interpretive Data was last revised on 2017 Protein, ur ql Negative Negative [facility] Glucose, ur ql Negative Negative [facility] Ketones, ur Negative Negative [facility] Bilirubin, ur Negative Negative [facility] Blood, ur Negative Negative [facility] Urobilinogen, ur <2.0 <2.0 mg/dL [facility] Nitrite, ur Positive(A) Negative [facility] Leukocyte esterase, ur 3+(A) Negative [facility] UA reflex comment Reflex to microscopic UA will be performed. [facility] Urine 02/03/2025 2:3 1 PM CDT 02/03/2025 3:24 PM CDT us Gerardo Melissa MD LAB MICROBIOLOGY - GENERAL OR DERABLES Final Result Performing Organization Address [facility] Co de Phone Number [facility] [place] [address] * (ABNORMAL) Urinalysis, microscopic only (02/03/2025 2:31 PM CDT) WBC, ur 21-50(A) 0 - 5 /HPF RBC, ur 0-2 0 - 2 /HPF [facility] Epithelial cells, squamous, ur 1-5 0 - 5 /HPF [facility] Bacteria, ur Trace(A) [facility] Mucous, ur Present(A) [facility] Hyaline casts, ur 6-10 0 - 10 /LPF [facility] Culture Reflex Comment Reflex to urine culture will be performed. [facility] Urine 02/03/2025 2:31 PM CDT 02/03/2025 3:24 PM CDT Gerardo Melissa MD LAB URINE ORDERABLES Final Re sult Performing Organization Address [facility] Co de Phone Number [facility] [place] [address] * (ABNORMAL) Urine culture Urine (02/03/2025 2:31 PM CDT) Report Final Report: Greater than or equal to 100,000 colonies/mL of Enterobacter cloacae complex (.) Organism ENTEROBACTER CLOACAE COMPLEX [facility] Urine 02/03/2025 2:31 PM CDT 02/03/2025 5:48 PM CDT Narrative [facility] - 02/05/2025 9:55 AM CDT Urine culture reflexed based upon urinalysis results. Testing performed by [facility] ([phone]) Organism Antibiotic Method Susceptibility Enterobacter cloacae complex Ampicillin INTERPRETATION Resistant Enterobacter cloacae complex Cefazolin INTERPRETATION Resistant Enterobacter cloacae complex Nitrofurantoin INTERPRETATION Susceptible Enterobacter cloacae complex Gentamicin INTERPRETATION Susceptible Enterobacter cloacae complex Trimethoprim with Sulfamethoxazole INTERPRETATION Susceptible Enterobacter cloacae complex Meropenem INTERPRETATION Susceptible Enterobacter cloacae complex Cefepime INTERPRETATION Susceptible Enterobacter cloacae complex Ciprofloxacin INTERPRETATION Susceptible Enterobacter cloacae complex Ceftazidime INTERPRETATION Resistant Enterobacter cloacae complex Ceftriaxone INTERPRETATION Resistant Enterobacter cloacae complex Piperacillin/Tazobactam INTERPRETATION Resistant Gerardo Melissa MD LAB MICROBIOLOGY - GENERAL OR DERABLES Final Result Performing Organization Address [facility] Co de Phone Number [facility] [place] [address] * Lidocaine level (02/03/2025 12:37 PM CDT) Lidocaine (Xylocaine) 1.9 1.5 - 5.0 mcg/mL Blood 02/03/2025 12:3 7 PM CDT 02/03/2025 1:32 PM CDT Narrative [facility] - 02/03/2025 2:01 PM CDT Draw 24 hours after infusion started. Rey Marrufo MD PhD LAB BLOOD ORDERABLES Final Result Performing Organization Address [facility] de Phone Number [facility] [place] [address] * POCT glucose (02/03/2025 11:49 AM CDT) Glucose, POC 147 70 - 199 mg/dL Comment:Glu2: RN/MD Notified Glucose comment 1 Glu2: RN/MD Notified [facility] Blood 02/03/2025 11:4 9 AM CDT 02/03/2025 11:49 AM CDT us Gerardo Melissa MD LAB POCT ORDERABLES - DEVICE Final Result Performing Organization Address [facility] Co de Phone Number [facility] [place] [address] * POCT glucose (02/03/2025 8:08 AM CDT) Glucose, POC 125 70 - 199 mg/dL Comment:Glu2: RN/MD Notified Glucose comment 1 Glu2: RN/MD Notified [facility] Blood 02/03/2025 8:08 AM CDT 02/03/2025 8:08 AM CDT Gerardo Melissa MD LAB POCT ORDERABLES - DEVICE Final Result [facility] [place] [address] * Blood culture Blood (02/03/2025 5:06 AM CDT) Report Final Report: No growth Blood 02/03/2025 5:06 AM CDT 02/03/2025 5:45 AM CDT Narrative [facility] - 02/07/2025 7:00 AM CDT Collection->Peripheral 1. Blood cultures are incubated for 4 days on a continuously monitored blood culture system. The first report of a negative culture is issued within 24 hours of receipt of the specimen in the laboratory. 2. Positive culture results are reported as soon as they are detected. 3. The most important factor for detection of microbes in the setting of bloodstream infection is the volume of blood submitted for culture. Failure to collect an optimal blood volume can result in false negative blood cultures. 4. For pediatric patients, the recommended blood volume to collect follows a weight based strategy. See the electronic test catalog for collection instructions. 5. For positive blood cultures, a rapid molecular test may be performed for organism identification using the gus ePlex blood culture identification panel for gram positive (BCID-GP) and gram negative (BCID-GN) organisms. This nucleic acid amplification test detects microbial DNA in positive blood culture broth. This assay has been cleared by the [place] Food and Drug Administration and its performance characteristics have been verified by the [facility] Microbiology Laboratory. For questions about this culture, contact the Microbiology Laboratory at [phone]. Interpretive data was last revised on 24. Luisito Tony MD LAB MICROBIOLOGY - GENERAL ORDER YEMI Final Result [facility] [place] [address] * Blood culture Blood (02/03/2025 5:06 AM CDT) Report Final Report: No growth Blood 02/03/2025 5:06 AM CDT 02/03/2025 5:45 AM CDT Narrative [facility] - 02/07/2025 7:00 AM CDT Collection->Peripheral 1. Blood cultures are incubated for 4 days on a continuously monitored blood culture system. The first report of a negative culture is issued within 24 hours of receipt of the specimen in the laboratory. 2. Positive culture results are reported as soon as they are detected. 3. The most important factor for detection of microbes in the setting of bloodstream infection is the volume of blood submitted for culture. Failure to collect an optimal blood volume can result in false negative blood cultures. 4. For pediatric patients, the recommended blood volume to collect follows a weight based strategy. See the electronic test catalog for collection instructions. 5. For positive blood cultures, a rapid molecular test may be performed for organism identification using the gus ePlex blood culture identification panel for gram positive (BCID-GP) and gram negative (BCID-GN) organisms. This nucleic acid amplification test detects microbial DNA in positive blood culture broth. This assay has been cleared by the [place] Food and Drug Administration and its performance characteristics have been verified by the [facility] Microbiology Laboratory. For questions about this culture, contact the Microbiology Laboratory at [phone]. Interpretive data was last revised on 24. Luisito Tony MD LAB MICROBIOLOGY - GENERAL ORDER YEMI Final Result Performing Organization Address City/[facility]/ZIP Co de Phone Number [facility] [place] [address] * POCT glucose (02/03/2025 3:58 AM CDT) Glucose, POC 133 70 - 199 mg/dL Blood 02/03/2025 3:58 AM CDT 02/03/2025 3:58 AM CDT us Gerardo Melissa MD LAB POCT ORDERABLES - DEVICE Final Result [facility] [place] [address] * Potassium, whole blood (02/03/2025 3:46 AM CDT) Pathologist [facility] [place] Potassium, bld 3.9 3.3 - 4.9 mmol/L Blood 02/03/2025 3:46 AM CDT 02/03/2025 3:58 AM CDT us Londonh Mayelin Birmingham NP LAB BLOOD ORDERABLES Final Result Performing Organization Address City/[facility]/ZIP Co de Phone Number [facility] [place] [address] * eGFR (02/03/2025 3:46 AM CDT) eGFR 62 >=60 mL/min/1. 73 m2 Comment: Interpretive Data [...] interpretive data was last reviewed 2021. Blood 02/03/2025 3:46 AM CDT 02/03/2025 4:05 AM CDT Lucy Haas SURFACE SUPPLY BREATHING APPARATUS LAB BLOOD ORDERABLES Final Res ult Performing Organization Address [facility] Co de Phone Number [facility] [place] [address] * (ABNORMAL) Calcium, ionized (02/03/2025 3:46 AM CDT) Calcium, Ionized 4.43(L) 4.50 - 5.10 mg/dL Blood 02/03/2025 3:46 AM CDT 02/03/2025 3:58 AM CDT Lucy Haas SURFACE [employer] BREATHING [employer]PAR[employer] LAB BLOOD ORDERABLES Final Res ult Performing Organization Address [facility] de Phone Number [facility] [place] [address] * Lactate, whole blood (02/03/2025 3:46 AM CDT) Lactate, bld 1.0 0.7 - 2.0 mmol/L Blood 02/03/2025 3:46 AM CDT 02/03/2025 3:58 AM CDT Gerardo Melissa MD LAB BLOOD ORDERABLES Final Re sult Performing Organization Address [facility] de Phone Number [facility] [place] [address] * (ABNORMAL) CBC without differential (02/03/2025 3:46 AM CDT) WBC 16.06(H) 3.80 - 9.90 K/cumm Hgb 8.1(L) 11.9 - 15.5 g/dL [facility] Hct 25.3(L) 35.6 - 45.5 % [facility] Plt 216 150 - 400 K/cumm [facility] MPV 10.8 9.1 - 12.3 fL [facility] RBC 2.83(L) 3.90 - 5.20 M/cumm [facility] MCV 89.4 81.3 - 96.4 fL [facility] MCH 28.6 27.1 - 33.3 pg [facility] MCHC 32.0(L) 32.3 - 35.7 g/dL [facility] RDW CV 17.2(H) 11.1 - 14.9 % [facility] RDW SD 54.4(H) 35.7 - 48.1 fL [facility] NRBC abs 0.14(H) 0.00 - 0.01 K/cumm [facility] Blood 02/03/2025 3:46 AM CDT 02/03/2025 4:05 AM CDT us Gerardo Melissa MD LAB BLOOD ORDERABLES Final Re sult [facility] Department of Laboratories [place], [place] [id number] * Phosphorus (02/03/2025 3:46 AM CDT) [facility] Phosphorus, pl 4.1 2.3 - 4.5 mg/dL Blood 02/03/2025 3:46 AM CDT 02/03/2025 4:05 AM CDT us Londonh Mayelin Birmingham NP LAB BLOOD ORDERABLES Final Result Performing Organization Address City/[facility]/ZIP Co de Phone Number [facility] [place] [address] * (ABNORMAL) Magnesium (02/03/2025 3:46 AM CDT) [facility] Magnesium 2.6(H) 1.4 - 2.5 mg/dL Blood 02/03/2025 3:46 AM CDT 02/03/2025 4:05 AM CDT us Kenny Birmingham SURFACE SUPPLY BREATHING APPARATUS LAB BLOOD ORDERABLES Final Result [facility] Department [place] [address] * (ABNORMAL) Basic metabolic panel (02/03/2025 3:46 AM CDT) [facility] Sodium 140 135 - 145 mmol/L Potassium, pl 4.0 3.3 - 4.9 mmol/L [facility] Chloride 103 97 - 110 mmol/L [facility] CO2 27 22 - 32 mmol/L [facility] Anion gap 10 2 - 15 mmol/L [facility] BUN 31(H) 6 - 25 mg/dL [facility] Creatinine 0.99 0.60 - 1.10 mg/dL [facility] Glucose 116 70 - 199 mg/dL [facility] Comment: Interpretive Data Fasting glucose >/= 126 [...] 2022. Calcium 9.4 8.5 - 10.3 mg/dL [facility] Blood 02/03/2025 3:46 AM CDT 02/03/2025 4:05 AM CDT us Lucy Haas SURFACE SUP[employer]Y BREATH[employer]PAR[employer] LAB BLOOD ORDERABLES Final Res ult Performing Organization Address City/[facility]/ZIP Co de Phone Number [facility] [place] [address] * POCT glucose (02/03/2025 12:05 AM CDT) Glucose, POC 104 70 - 199 mg/dL Blood 02/03/2025 12:0 5 AM CDT 02/03/2025 12:05 AM CDT us Gerardo Melissa MD LAB POCT ORDERABLES - DEVICE Final Result [facility] [place] [address] * XR Chest 1 View - in PM (02/02/2025 9:24 PM CDT) Anatomical Region Laterality Modality Body, Chest N/A Digital Radiogra phy 02/03/2025 7:42 AM CDT Impressions 02/03/2025 7:42 AM CDT Comparison made to 02/02/2025 and 5:24 PM Similar position of median sternotomy wires. Feeding tube tip projects out of view. Hypoinflated lungs with bronchovascular crowding. Possible superimposed mild pulmonary edema. Similar cardiomediastinal silhouette. Increased small left pleural effusion with bibasilar opacities, which could represent atelectasis. Electronically signed by: Alirio Jensen M.D. Narrative 02/03/2025 7:42 AM CDT EXAMINATION: 1 view chest radiograph Procedure Note Alirio Jensen MD - 02/03/2025 EXAMINATION: 1 view chest radiograph IMPRESSION: Comparison made to 02/02/2025 and 5:24 PM Similar position of median sternotomy wires. Feeding tube tip projects out of view. Hypoinflated lungs with bronchovascular crowding. Possible superimposed mild pulmonary edema. Similar cardiomediastinal silhouette. Increased small left pleural effusion with bibasilar opacities, which could represent atelectasis. Electronically signed by: Alirio Jensen M.D. us Kenny Hammerne SURFACE SUPPLY BREATHING APPARATUS IMG XR PROCEDURES Final Res ult * POCT glucose (02/02/2025 7:01 PM CDT) [facility] Glucose, POC 163 70 - 199 mg/dL Blood 02/02/2025 7:01 PM CDT 02/02/2025 7:01 PM CDT Gerardo Melissa MD LAB POCT ORDERABLES - DEVICE Final Result Performing Organization Address [facility] Co de Phone Number [facility] [place] [address] * Troponin I high-sensitivity (02/02/2025 6:19 PM CDT) [facility] Trop I hs 14 <=17 ng/L Comment: Interpretive Data For further hscTnI resources including the diagnostic algorithm and an aid in interpretation, copy and paste this link: [email or web address] Current Interpretive Data last revised 2019. Blood 02/02/2025 6:19 PM CDT 02/02/2025 7:21 PM CDT Gerardo Melissa MD LAB BLOOD ORDERABLES Final Re sult Performing Organization Address [facility] Co de Phone Number [facility] [place] [address] * eGFR (02/02/2025 6:19 PM CDT) [facility] eGFR 65 >=60 mL/min/1. 73 m2 Comment: Interpretive Data [...] interpretive data was last reviewed 2021. Blood 02/02/2025 6:19 PM CDT 02/02/2025 6:52 PM CDT us Gerardo Melissa MD LAB BLOOD ORDERABLES Final Re sult [facility] [place] [address] * (ABNORMAL) Differential, auto (02/02/2025 6:19 PM CDT) Pathologist [facility] [place] Neutrophil abs 8.71(H) 1.50 - 6.50 K/cumm Imm gran abs 0.74(H) 0.00 - 0.10 K/cumm [facility] Lymphocyte abs 3.00 0.80 - 3.30 K/cumm [facility] Monocyte abs 2.57(H) 0.20 - 0.80 K/cumm [facility] Eosinophil abs 0.56(H) 0.00 - 0.50 K/cumm [facility] Basophil abs 0.09 0.00 - 0.10 K/cumm [facility] Neutrophil pct 55.6 % [facility] Comment: Interpretive Data Percent cell count reference ranges are not reported, since discordance with absolute values may lead to misinterpretation of CBC data. Current Interpretive Data was last revised on 2017. Imm gran pct 4.7 % [facility] Comment: Interpretive Data Percent cell count reference ranges are not reported, since discordance with absolute values may lead to misinterpretation of CBC data. Current Interpretive Data was last revised on 2017. Lymphocyte pct 19.1 % [facility] Comment: Interpretive Data Percent cell count reference ranges are not reported, since discordance with absolute values may lead to misinterpretation of CBC data. Current Interpretive Data was last revised on 2017. Monocyte pct 16.4 % [facility] Comment: Interpretive Data Percent cell count reference ranges are not reported, since discordance with absolute values may lead to misinterpretation of CBC data. Current Interpretive Data was last revised on 2017. Eosinophil pct 3.6 % [facility] Comment: Interpretive Data Percent cell count reference ranges are not reported, since discordance with absolute values may lead to misinterpretation of CBC data. Current Interpretive Data was last revised on 2017. Basophil pct 0.6 % [facility] Comment: Interpretive Data Percent cell count reference ranges are not reported, since discordance with absolute values may lead to misinterpretation of CBC data. Current Interpretive Data was last revised on 2017. Blood 02/02/2025 6:19 PM CDT 02/02/2025 6:51 PM CDT Gerardo Melissa MD LAB BLOOD ORDERABLES Final Re sult [facility] [place] [address] * (ABNORMAL) Pro B-type natriuretic peptide (02/02/2025 6:19 PM CDT) NT-proBNP 1,850(H) <=300 pg/mL Comment: Interpretive Comments: A. Dyspnea in Acute Care Setting All Ages: < 300 pg/ml, acute heart failure unlikely. < 50 yrs: 300 - 450 pg/ml, further investigation warranted. > 450 pg/ml, acute heart failure likely. 50 - 74 yrs: 300 - 900 pg/ml, further investigation warranted. > 900 pg/ml, acute heart failure likely . > or = 75 yrs: 450 - 1800 pg/ml, further investigation warranted. > 1800 pg/ml, acute heart failure likely. B. Non-acute Setting < 75 yrs < 125 pg/ml, rules out heart failure. > or = 125 pg/ml, further investigation warranted. > or = 75 yrs < 450 pg/ml, rules out heart failure. > or = 450 pg/ml, further investigation warranted. - Knowledge of each individual patient's NT-proBNP range may be more useful than using similar cut-points for every patient. Please note that marked elevations in NT-proBNP levels may be observed in state other than Left Ventricular Congestive Failure, including: acute coronary syndromes, right heart strain/failure (including pulmonary embolism and cor pulmonale), critical illness, renal failure, as well as advanced age. - References: 1. Theo BOX et.al. Eur Heart J. 2006:27:330-337. 2. Cesar RW, Mingo REYES. J. AM Luciana Cardiol: Cardiovasc Imag. 2009;2: 216- 225. Interpretive Data Last Revised Date: 2017. Blood 02/02/2025 6:19 PM CDT 02/02/2025 6:52 PM CDT us Gerardo Melissa MD LAB BLOOD ORDERABLES Final Re sult [facility] [place] [address] * (ABNORMAL) CBC with auto differential (02/02/2025 6:19 PM CDT) WBC 15.67(H) 3.80 - 9.90 K/cumm Hgb 8.1(L) 11.9 - 15.5 g/dL [facility] Hct 25.0(L) 35.6 - 45.5 % [facility] Plt 217 150 - 400 K/cumm [facility] MPV 11.2 9.1 - 12.3 fL [facility] RBC 2.77(L) 3.90 - 5.20 M/cumm [facility] MCV 90.3 81.3 - 96.4 fL [facility] MCH 29.2 27.1 - 33.3 pg [facility] MCHC 32.4 32.3 - 35.7 g/dL [facility] RDW CV 17.2(H) 11.1 - 14.9 % [facility] RDW SD 55.3(H) 35.7 - 48.1 fL [facility] NRBC abs 0.31(H) 0.00 - 0.01 K/cumm [facility] Blood 02/02/2025 6:19 PM CDT 02/02/2025 6:51 PM CDT us Gerardo Melissa MD LAB BLOOD ORDERABLES Final Re sult Performing Organization Address City/[facility] Co de Phone Number [facility] [place] [address] * Lidocaine level (02/02/2025 6:19 PM CDT) Lidocaine (Xylocaine) 2.4 1.5 - 5.0 mcg/mL Blood 02/02/2025 6:19 PM CDT 02/02/2025 6:52 PM CDT us Gerardo Melissa MD LAB BLOOD ORDERABLES Final Re sult Performing Organization Address [facility] Co de Phone Number [facility] [place] [address] * Phosphorus (02/02/2025 6:19 PM CDT) Phosphorus, pl 3.8 2.3 - 4.5 mg/dL Blood 02/02/2025 6:19 PM CDT 02/02/2025 6:52 PM CDT us Gerardo Melissa MD LAB BLOOD ORDERABLES Final Re sult Performing Organization Address [facility] Co de Phone Number [facility] [place] [address] * Magnesium (02/02/2025 6:19 PM CDT) Magnesium 2.1 1.4 - 2.5 mg/dL Blood 02/02/2025 6:19 PM CDT 02/02/2025 6:52 PM CDT us Gerardo Melissa MD LAB BLOOD ORDERABLES Final Re sult Performing Organization Address [facility]/ZIP Co de Phone Number [facility] [place] [address] * (ABNORMAL) Basic metabolic panel (02/02/2025 6:19 PM CDT) [facility] Sodium 141 135 - 145 mmol/L Potassium, pl 3.7 3.3 - 4.9 mmol/L [facility] Chloride 104 97 - 110 mmol/L [facility] CO2 27 22 - 32 mmol/L [facility] Anion gap 10 2 - 15 mmol/L [facility] BUN 33(H) 6 - 25 mg/dL [facility] Creatinine 0.95 0.60 - 1.10 mg/dL [facility] Glucose 140 70 - 199 mg/dL [facility] Comment: Interpretive Data Fasting glucose >/= 126 [...] 2022. Calcium 9.4 8.5 - 10.3 mg/dL [facility] Blood 02/02/2025 6:19 PM CDT 02/02/2025 6:52 PM CDT us Gerardo Melissa MD LAB BLOOD ORDERABLES Final Re sult Performing Organization Address [facility] Co de Phone Number [facility] [place] [address] * (ABNORMAL) POCT [id number], WB - ISTAT (02/02/2025 6:05 PM CDT) Na POC 138 135 - 145 mmol/L K POC 3.6 3.3 - 4.9 mmol/L [facility] Comment: Interpretive Data This method is not able to assess for hemolysis, which may falsely increase potassium concentrations. If further testing is needed to evaluate this result, consider in-laboratory plasma potassium. Current Interpretive Data was last revised on 2022. Glucose POC i-STAT 144 70 - 199 mg/dL [facility] Hct, POC 32.0(L) 35.6 - 45.5 % [facility] Blood 02/02/2025 6:05 PM CDT 02/02/2025 6:05 PM CDT us Gerardo Melissa MD LAB POCT ORDERABLES - DEVICE Final Result [facility] [place] [address] * (ABNORMAL) Arterial Blood gas w/Lactate POCT (02/02/2025 5:59 PM CDT) [facility] Lactate POC i-STAT 0.8 0.7 - 2.0 mmol/L pH POC 7.44 7.35 - 7.45 [facility] pCO2, Art POC 41 35 - 45 mmHg [facility] PO2 POC 82 80 - 105 mmHg [facility] CO2, total POC 29 20 - 30 mmol/L [facility] HCO3, POC 28 21 - 30 mmol/L [facility] BE POC 4(H) -2 - 3 mmol/L [facility] O2 sat POC 96 95 - 98 % [facility] Blood 02/02/2025 5:59 PM CDT 02/02/2025 5:59 PM CDT us Gerardo Melissa MD LAB BLOOD ORDERABLES Final Re sult [facility] [place] [address] * XR Chest 1 View (02/02/2025 5:24 PM CDT) Anatomical Region Laterality Modality Body, Chest N/A Computed Radiogr aphy 02/02/2025 6:00 PM CDT Impressions 02/02/2025 7:05 PM CDT Comparison is made to radiograph 02/02/2025 at 1:28 AM. Changes of median sternotomy with unchanged multiple fractured sternotomy wires. There is a coronary artery stent. There are multiple surgical clips projecting over right apex and right lower neck. Endogastric tube in place tip terminates out of [id number]. Very small lung volumes. There is associated bilateral lower lung atelectasis. Trace bilateral pleural effusions. No pneumothorax. Dictated by: Eliana Vieira M.D. The radiology attending physician has personally reviewed this study, and had reviewed and/or edited this written report and agrees with it. Electronically signed by: Sadie Norris M.D. Narrative 02/02/2025 7:05 PM CDT EXAMINATION: 1 view chest radiograph Procedure Note Sadie Norris MD - 02/02/2025 EXAMINATION: 1 view chest radiograph IMPRESSION: Comparison is made to radiograph 02/02/2025 at 1:28 AM. Changes of median sternotomy with unchanged multiple fractured sternotomy wires. There is a coronary artery stent. There are multiple surgical clips projecting over right apex and right lower neck. Endogastric tube in place tip terminates out of [id number]. Very small lung volumes. There is associated bilateral lower lung atelectasis. Trace bilateral pleural effusions. No pneumothorax. Dictated by: Eliana Vieira M.D. The radiology attending physician has personally reviewed this study, and had reviewed and/or edited this written report and agrees with it. Electronically signed by: Sadie Norris M.D. us Gerardo Melissa MD IMG XR PROCEDURES Final Resul t * ECG 12 lead (02/02/2025 5:20 PM CDT) Pathologist [facility] Ventricular Rate EKG/Min 97 BPM [facility] Atrial Rate 97 BPM [facility] AK-Interval (MSEC) 176 ms [facility] QRS-Interval (MSEC) 86 ms [facility] QT-Interval (MSEC) 326 ms [facility] QTc 414 ms [facility] P [place] 74 degrees [facility] R [place] 55 degrees [facility] T [place] 78 degrees [facility] Diagnosis Normal sinus rhythm Nonspecific ST and T wave abnormality Abnormal ECG When compared with ECG of 28-JAN-2025 18:41, (unconfirmed) QT has shortened Confirmed by Terrance Carbajal MD ([id number]) on 02/04/2025 4:21:14 PM [facility] 02/02/2025 5:20 PM CDT 02/04/2025 4:21 PM CDT us Gerardo Melissa MD ECG ORDERABLES Final Result Performing Organization Address [facility] de Phone Number [facility] * POCT glucose (02/02/2025 4:36 PM CDT) Glucose, POC 187 70 - 199 mg/dL Blood 02/02/2025 4:36 PM CDT 02/02/2025 4:36 PM CDT us Gerardo Melissa MD LAB POCT ORDERABLES - DEVICE Final Result Performing Organization Address [facility] Co de Phone Number [facility] [place] [address] * POCT glucose (02/02/2025 11:37 AM CDT) Glucose, POC 132 70 - 199 mg/dL Blood 02/02/2025 11:3 7 AM CDT 02/02/2025 11:37 AM CDT us Gerardo Melissa MD LAB POCT ORDERABLES - DEVICE Final Result [facility] [place] [address] * Lidocaine level (02/02/2025 9:45 AM CDT) [facility] Lidocaine (Xylocaine) 2.3 1.5 - 5.0 mcg/mL Blood 02/02/2025 9:45 AM CDT 02/02/2025 10:04 AM CDT Narrative [facility] - 02/02/2025 10:33 AM CDT Draw 24 hours after infusion started. Rey Marrufo MD PhD LAB BLOOD ORDERABLES Final Result [facility] [place] [address] * (ABNORMAL) CBC without differential (02/02/2025 9:45 AM CDT) [facility] WBC 14.55(H) 3.80 - 9.90 K/cumm Hgb 8.0(L) 11.9 - 15.5 g/dL [facility] Hct 24.5(L) 35.6 - 45.5 % [facility] Plt 178 150 - 400 K/cumm [facility] MPV 10.6 9.1 - 12.3 fL [facility] RBC 2.76(L) 3.90 - 5.20 M/cumm [facility] MCV 88.8 81.3 - 96.4 fL [facility] MCH 29.0 27.1 - 33.3 pg [facility] MCHC 32.7 32.3 - 35.7 g/dL [facility] RDW CV 17.2(H) 11.1 - 14.9 % [facility] RDW SD 54.4(H) 35.7 - 48.1 fL [facility] NRBC abs 0.14(H) 0.00 - 0.01 K/cumm [facility] Blood 02/02/2025 9:45 AM CDT 02/02/2025 10:04 AM CDT us Gerardo Melissa MD LAB BLOOD ORDERABLES Final Re sult Performing Organization Address [facility] Co de Phone Number [facility] [place] [address] * POCT glucose (02/02/2025 8:05 AM CDT) Glucose, POC 116 70 - 199 mg/dL Blood 02/02/2025 8:05 AM CDT 02/02/2025 8:05 AM CDT us Gerardo Melissa MD LAB POCT ORDERABLES - DEVICE Final Result Performing Organization Address [facility] de Phone Number [facility] [place] [address] * POCT glucose (02/02/2025 3:40 AM CDT) Glucose, POC 147 70 - 199 mg/dL Blood 02/02/2025 3:40 AM CDT 02/02/2025 3:40 AM CDT us Gerardo Melissa MD LAB POCT ORDERABLES - DEVICE Final Result Performing Organization Address [facility] Co de Phone Number [facility] [place] [address] * XR Chest 1 View (02/02/2025 2:03 AM CDT) Anatomical Region Laterality Modality Body, Chest N/A Digital Radiogra phy 02/02/2025 7:30 AM CDT Impressions 02/02/2025 7:32 AM CDT The current study is compared with the prior radiograph dated 01/31/2025. Median sternotomy wires are in an unchanged position. Coronary artery stent is seen again. A feeding tube terminates below the diaphragm over the 1st portion of the duodenum. Right upper quadrant cholecystectomy clips. Small lung volumes with associated atelectasis. Decrease in size of previously noted left-sided pleural effusion. No right-sided pleural effusion. No pneumothorax. Dictated by: Karl Zapata M.D. The radiology attending physician has personally reviewed this study, and had reviewed and/or edited this written report and agrees with it. Electronically signed by: Shena Zazueta M.D. Narrative 02/02/2025 7:32 AM CDT EXAMINATION: 1 view chest radiograph Procedure Note Shena Zazueta MD - 02/02/2025 EXAMINATION: 1 view chest radiograph IMPRESSION: The current study is compared with the prior radiograph dated 01/31/2025. Median sternotomy wires are in an unchanged position. Coronary artery stent is seen again. A feeding tube terminates below the diaphragm over the 1st portion of the duodenum. Right upper quadrant cholecystectomy clips. Small lung volumes with associated atelectasis. Decrease in size of previously noted left-sided pleural effusion. No right-sided pleural effusion. No pneumothorax. Dictated by: Karl Zapata M.D. The radiology attending physician has personally reviewed this study, and had reviewed and/or edited this written report and agrees with it. Electronically signed by: Shena Zazueta M.D. [facility] DIEGO IMG XR PROCEDURES Final Result * (ABNORMAL) CBC without differential (02/02/2025 12:49 AM CDT) [facility] WBC 12.84(H) 3.80 - 9.90 K/cumm Hgb 7.7(L) 11.9 - 15.5 g/dL [facility] Hct 23.5(L) 35.6 - 45.5 % [facility] Plt 151 150 - 400 K/cumm [facility] MPV 10.8 9.1 - 12.3 fL [facility] RBC 2.61(L) 3.90 - 5.20 M/cumm [facility] MCV 90.0 81.3 - 96.4 fL [facility] MCH 29.5 27.1 - 33.3 pg [facility] MCHC 32.8 32.3 - 35.7 g/dL [facility] RDW CV 17.3(H) 11.1 - 14.9 % [facility] RDW SD 55.8(H) 35.7 - 48.1 fL [facility] NRBC abs 0.11(H) 0.00 - 0.01 K/cumm [facility] Blood 02/02/2025 12:4 9 AM CDT 02/02/2025 1:00 AM CDT us Gerardo Melissa MD LAB BLOOD ORDERABLES Final Re sult [facility] [place] [address] * Potassium, whole blood (02/02/2025 12:46 AM CDT) Potassium, bld 4.0 3.3 - 4.9 mmol/L Blood 02/02/2025 12:4 6 AM CDT 02/02/2025 12:56 AM CDT us [place] Mayelin Birmingham NP LAB BLOOD ORDERABLES Final Result [facility] [place] [address] * eGFR (02/02/2025 12:46 AM CDT) eGFR 62 >=60 mL/min/1. 73 m2 Comment: Interpretive Data [...] interpretive data was last reviewed 2021. Blood 02/02/2025 12:4 6 AM CDT 02/02/2025 1:00 AM CDT Lucy Haas SURFACE SUPPLY BREATHING [employer]PARAT[employer] LAB BLOOD ORDERABLES Final Res ult Performing Organization Address [facility] Co de Phone Number [facility] [place] [address] * Calcium, ionized (02/02/2025 12:46 AM CDT) Calcium, Ionized 4.68 4.50 - 5.10 mg/dL Blood 02/02/2025 12:4 6 AM CDT 02/02/2025 12:56 AM CDT Lucy Haas SURFACE [employer] LAB BLOOD ORDERABLES Final Res ult Performing Organization Address [facility] Co de Phone Number [facility] [place] [address] * Lactate, whole blood (02/02/2025 12:46 AM CDT) Lactate, bld 0.8 0.7 - 2.0 mmol/L Blood 02/02/2025 12:4 6 AM CDT 02/02/2025 12:56 AM CDT Gerardo Melissa MD LAB BLOOD ORDERABLES Final Re sult Performing Organization Address City/[facility] Co de Phone Number [facility] [place] [address] * Phosphorus (02/02/2025 12:46 AM CDT) [facility] Phosphorus, pl 3.0 2.3 - 4.5 mg/dL Blood 02/02/2025 12:4 6 AM CDT 02/02/2025 1:00 AM CDT us Yes Mayelin Birmingham SURFACE [employer] LAB BLOOD ORDERABLES Final Result Performing Organization Address [facility] Co de Phone Number [facility] [place] [address] * Magnesium (02/02/2025 12:46 AM CDT) [facility] Magnesium 2.3 1.4 - 2.5 mg/dL Blood 02/02/2025 12:4 6 AM CDT 02/02/2025 1:00 AM CDT us Yes Mayelin Birmingham SURFACE [employer] LAB BLOOD ORDERABLES Final Result Performing Organization Address [facility] de Phone Number [facility] [place] [address] * (ABNORMAL) Basic metabolic panel (02/02/2025 12:46 AM CDT) [facility] Sodium 146(H) 135 - 145 mmol/L Potassium, pl 4.0 3.3 - 4.9 mmol/L [facility] Chloride 112(H) 97 - 110 mmol/L [facility] CO2 27 22 - 32 mmol/L [facility] Anion gap 7 2 - 15 mmol/L [facility] BUN 32(H) 6 - 25 mg/dL [facility] Creatinine 0.99 0.60 - 1.10 mg/dL [facility] Glucose 144 70 - 199 mg/dL [facility] Comment: Interpretive Data Fasting glucose >/= 126 [...] interpretive data was last revised 2022. Calcium 8.9 8.5 - 10.3 mg/dL [facility] Blood 02/02/2025 12:4 6 AM CDT 02/02/2025 1:00 AM CDT Lucy Haas SURFACE [employer] LAB BLOOD ORDERABLES Final Res ult [facility] [place] [address] * POCT glucose (02/01/2025 11:00 PM CDT) Glucose, POC 139 70 - 199 mg/dL Blood 02/01/2025 11:0 0 PM CDT 02/01/2025 11:00 PM CDT Gerardo Melissa MD LAB POCT ORDERABLES - DEVICE Final Result Performing Organization Address City/[facility]/ZIP Co de Phone Number [facility] [place] [address] * (ABNORMAL) Blood gas, venous (02/01/2025 10:08 PM CDT) pH, Venous 7.42 7.32 - 7.43 PCO2, Venous 39(L) 40 - 50 mmHg [facility] PO2, Venous 124 mmHg [facility] Comment: Interpretive Data No Reference Range Established Current Interpretive Data was last revised on 2017. HCO3 Venous, Calculated 25 20 - 30 mmol/L [facility] BE, venous 1 mmol/L [facility] Comment: Interpretive Data No Reference Range Established Current Interpretive Data was last revised on 2017. Blood 02/01/2025 10:0 8 PM CDT 02/01/2025 10:15 PM CDT Sourav DIEGO LAB BLOOD ORDERABLES Fin al Result [facility] [place] [address] * Critical Care (02/01/2025 7:45 PM CDT) Narrative Rey Marrufo MD PhD - 02/01/2025 7:45 PM CDT Rey Marrufo MD PhD 02/02/2025 6:50 AM Critical Care Performed by: Sourav Eubanks PA Authorized by: Sourav Eubakns PA CRITICAL CARE: Team: 83 CTICU Shift: PM Level of Billing: Critical Care My time spent with this patient was 75 minutes: Critical Provider Statement: I have seen and examined the patient on this day of service. I have reviewed and confirmed the history, physical exam, laboratory and radiologic data as documented in the signed ICU note. I have reviewed and discussed my treatment plan with the ICU team and other medical/oracle identity management consultant staff, making frequent assessments and decisions regarding this patient's complex medical care. Critical Care time was exclusive of time spent performing separately billed procedures, treating other patients, and teaching. This time was in addition to and separate from critical care provided by other practitioners in my group on this day of service. Critical Care was necessary to treat or prevent imminent or life-threatening deterioration of the following conditions: I spent time reviewing and interpreting data from bedside monitors, laboratory results, and imaging, I spent time discussing the management of this critically ill patient with consultants and the medical staff and I spent time documenting in the medical record us Sourav DIEGO IN CLINIC/BEDSIDE ORDERA BLES Final Result * POCT glucose (02/01/2025 7:04 PM CDT) Glucose, POC 191 70 - 199 mg/dL Blood 02/01/2025 7:04 PM CDT 02/01/2025 7:04 PM CDT Gerardo Melissa MD LAB POCT ORDERABLES - DEVICE Final Result [facility] [place] [address] * POCT glucose (02/01/2025 6:06 PM CDT) [facility] Glucose, POC 195 70 - 199 mg/dL Blood 02/01/2025 6:06 PM CDT 02/01/2025 6:06 PM CDT Gerardo Melissa MD LAB POCT ORDERABLES - DEVICE Final Result Performing Organization Address [facility] Co de Phone Number [facility] [place] [address] * Potassium, whole blood (02/01/2025 6:00 PM CDT) [facility] Potassium, bld 3.7 3.3 - 4.9 mmol/L Blood 02/01/2025 6:00 PM CDT 02/01/2025 6:17 PM CDT Sven Dowell DO LAB BLOOD ORDERABLES F inal Result Performing Organization Address City/[facility] Co de Phone Number [facility] [place] [address] * Respiratory pathogen panel Nasopharyngeal (02/01/2025 6:00 PM CDT) [facility] Influenza A RNA Not Detected Not Detected Influenza B RNA Not Detected Not Detected [facility] RSV RNA Not Detected Not Detected [facility] COVID-19 RNA Not Detected Not Detected [facility] Coronavirus 229E RNA Not Detected Not Detected [facility] Coronavirus HKU1 RNA Not Detected Not Detected [facility] Coronavirus NL63 RNA Not Detected Not Detected [facility] Coronavirus OC43 RNA Not Detected Not Detected [facility] Adenovirus DNA Not Detected Not Detected [facility] Metapneumovirus RNA Not Detected Not Detected [facility] Rhinovirus/Enterov irus RNA Not Detected Not Detected [facility] Parainfluenza 1 RNA Not Detected Not Detected [facility] Parainfluenza 2 RNA Not Detected Not Detected [facility] Parainfluenza 3 RNA Not Detected Not Detected [facility] Parainfluenza 4 RNA Not Detected Not Detected [facility] B. pertussis DNA Not Detected Not Detected [facility] B. parapertussis DNA Not Detected Not Detected [facility] C. pneumoniae DNA Not Detected Not Detected [facility] M. pneumoniae DNA Not Detected Not Detected [facility] Nasopharyngeal 02/01/2025 6: 00 PM CDT 02/01/2025 6:21 PM CDT Narrative [facility] - 02/01/2025 7:21 PM CDT Is the Patient experiencing symptoms consistent with COVID?->No Surveillance testing for transplant patient?->No Interpretive Data The [employer] FilmArray Respiratory Panel (RP2.1) assay is a multiplexed real-time PCR based nucleic acid test capable of simultaneous qualitative detection and identification of multiple respiratory viral and bacterial nucleic acids, including SARS Coronavirus 2 (the causative agent of COVID-19). The following bacteria, viruses and virus subtypes can be identified using the FilmArray RP2.1 assay: Bordetella pertussis, Bordetella parapertussis, Chlamydia pneumoniae, Mycoplasma pneumoniae, Adenovirus, SARS Coronavirus 2, seasonal coronaviruses (Coronavirus HKU1, Coronavirus NL63, Coronavirus 229E, and Coronavirus OC43), Influenza A, Influenza A subtype H1, Influenza A subtype H3, Influenza A subtype 2009 H1, Influenza B, Metapneumovirus, Parainfluenza 1, Parainfluenza 2, Parainfluenza 3, Parainfluenza 4, RSV, Rhinovirus/Enterovirus. Due to the genetic similarity between human Rhinovirus and Enterovirus, the FilmArray RP2.1 assay cannot reliably differentiate them. Coronavirus OC43 may cross-react with some isolates of Coronavirus HKU1. A dual positive result may be due to cross-reactivity or may indicate a co- infection. The detection and identification of specific viral and bacterial nucleic acids from individuals exhibiting signs and symptoms of a respiratory infection aids in the diagnosis of respiratory infection if used in conjunction with other clinical and epidemiological information. The results of this test should not be used as the sole basis for diagnosis, treatment, or other management decisions. Negative results in the setting of a respiratory illness may be due to infection with pathogens that are not detected by this test. Positive results do not rule out infection/co-infection with other organisms. The agent(s) detected by the FilmArray RP2.1 may not be the definite cause of disease. Additional testing (lab, imaging, etc.) may be necessary when evaluating a patient with possible respiratory tract infection. The FilmArray RP2.1 assay has FDA clearance for testing of SURFACE SUPPLY BREATHING APPARATUS swabs. The performance of additional specimen types has been assessed by the performing laboratory. The performance characteristics of this assay have been determined by [facility]ious Disease [facility]. Current interpretive data was last revised on 22. Mo Nance Bigg SURFACE SUPPLY BREATHING APPARATUS LAB MICROBIOLOGY - GENERAL ORDERABLES Final Result [facility] [place] [address] * (ABNORMAL) POC Blood Gas and Chemistries, Venous - (02/01/2025 5:54 PM CDT) pH, Teodoro POC 7.20(C) 7.32 - 7.43 pCO2, teodoro POC 56(H) 40 - 50 mmHg [facility] pO2, teodoro POC 45 mmHg [facility] Na, POC 141 135 - 145 mmol/L [facility] K POC 3.6 3.3 - 4.9 mmol/L [facility] Comment: Interpretive Data Not all point of care methods assess for hemolysis. Confirm with instrument and retest K+ if not consistent with clinical signs and symptoms. Current Interpretive Data was last revised on 2023. Cl, POC 109 97 - 110 mmol/L [facility] Ionized Ca, POC 5.21(H) 4.50 - 5.10 mg/dL [facility] Glucose, POC 375(H) 70 - 199 mg/dL [facility] Lactate POC 1.2 0.7 - 2.0 mmol/L [facility] O2 Sat, [place] POC (Eb) 81 % [facility] Base excess, POC -6.0 mmol/L [facility] HCO3, [place] POC 22 20 - 30 mmol/L [facility] Hct, POC 24.0(L) 36.3 - 45.3 % [facility] Total Hb, POC 8.1(L) 11.9 - 15.5 g/dL [facility] Blood 02/01/2025 5:54 PM CDT 02/01/2025 5:54 PM CDT Gerardo Melissa MD LAB POCT ORDERABLES - DEVICE Final Result [facility] [place] [address] * MARKET RESEARCH SPECIALIST Evaluate and Treat (FEES) (02/01/2025 1:18 PM CDT) Narrative [facility] - 02/01/2025 1:18 PM CDT Bre Jaimes, ARMIDA 02/01/2025 4:38 PM Speech-Language Pathology: Flexible Endoscopic Evaluation of Swallowing (FEES) HPI/PMH 69 y.o. female PMHx: chronic pain, CVA, CAD s/p PCI x2 DAVION on Plavix/ASA (11/05/24), prior tobacco use, GERD, PAD, HTN, HLD & hypothyroidism. admitted for planned redo ascending aorta to subclavian and carotid bifurcation bypass for subclavian steal syndrome w/ vascular surgery 01/28: OR (Vasc-Dr. Melissa) s/p redo sternotomy, ascending Ao to R subclavian (10mm Gelweave) & R carotid artery (8mm [place] PTFE) bypass & R carotid endarterectomy - 01/29: 1u PRBC, 1u PLT, no cuff leak. PPI BID - 01/30: extubated MARKET RESEARCH SPECIALIST hx: 07/26/24 CSE recommended regular/thin Respiratory/Intubation Status:intubated 01/28-01/30, now on 3L Imaging: CXR 01/31: Increased left-sided pleural effusion with associated atelectasis. Precautions: Fall Current Diet Order:NPO Baseline Diet: Regular General Information Ethel Hobson 02/01/25 MARKET RESEARCH SPECIALIST Received On: 02/01/25 General Observations: Pt was seen sitting upright in bed. Alert and agreeable to exam. Pt tolerated the scope well. Pain Score: 0 If pain >4, was RN notified? N/A Patient Stated Goal/Comments: eat and drink Clinical Impression & Professional Recommendations Diet Solids Recommendation: Dysphagia diet-Soft (tender/chopped meat) Diet Liquids Recommendations: Douglass thick Recommended Form of Medications: With puree Compensatory Strategies/Modifications: Slow rate, Single sips, Double/repeat swallows to clear, Small bites Postural Recommendations: Upright Assistance with feeding/swallowing: Assist with aggressive oral hygiene prior to po Specialty Instructions: good oral care Overall Clinical Impression/Additional Information: Mild oral-pharyngeal swallow dysfunction with motor and sensory deficits characterized by the following: Oral Phase Deficits: reduced bolus control/premature spillage of liquids Pharyngeal Phase Deficits: suspect reduced tongue base retraction, incomplete laryngeal vestibule closure Results: Penetration to the vocal cords and trace silent aspiration observed during the swallow with thin liquids. Cued cough was unsuccessful in clearing. Flash penetration occurred x1 with nectar thick liquids d/t premature spillage. This was fully cleared upon completion of the swallow. No further instances of penetration observed with nectar thick liquids by straw. With initial trials of puree, noted residue along epiglottic rim, appearing to be high penetration. This was cleared with reflexive repeat swallow. No additional penetration or residue along epiglottis noted with subsequent puree trials. No penetration or aspiration observed with regular or soft solids. However, prolonged mastication present with hard solids, suspect d/t sparse dentition. Trace to mild valleculae residue noted with puree and solids. Residue was cleared with repeat swallow. Assessment Details & Results Purpose and Procedure of Flexible Endoscopic Evaluation of Swallowing: Completed to assess oropharyngeal swallow function and evaluate the safety/efficiency of the swallow so that diet recommendations can be made. Results are indicative of performance at time of exam. A flexible endoscope was passed transnasally to the level of the hypopharynx without administration of topical anesthetic. The soft palate, pharynx, larynx, and surrounding structures were viewed. Position During Assessment: Position: Seated upright, in a bed Anatomy and Physiology Anatomy and Physiology Findings: No deficits (brusing/erythma and edema of R arytenoid and aryepiglottic fold) Secretions: Minimal Consistencies Administered: Thin liquids, Douglass thick liquids, Purees, Solids Thin Liquids: Laryngeal Penetration: Present Aspiration Present: Yes Timing: During Amount: Trace Penetration Aspiration Scale-Thin: 8-Material enters the airway, passes below the vocal folds and no effort is made to eject [place]mling Scale-Vallecular Residue-Thin Liquids: Trace Alfreda Scale-Pyriform Sinus Residue-Thin Liquids: Trace Douglass Thickened Liquids: Laryngeal Penetration: Present Aspiration Present: No Penetration Aspiration Scale-Douglass: 2-Material enters the airway, remains above the vocal folds and is ejected from the airway Alfreda Scale-Vallecular Residue-Douglass Thickened Liquids: Trace K[place]mling Scale-Pyriform Sinus Residue-Douglass Thickened Liquids: Trace Purees: Laryngeal Penetration: None Aspiration Present: No Penetration Aspiration Scale-Puree: 2-Material enters the airway, remains above the vocal folds and is ejected from the airway K[place]mling Scale-Vallecular Residue-Puree: Mild Alfreda Scale-Pyriform Sinus Residue-Puree: Trace Solids: Laryngeal Penetration: None Aspiration Present: No Penetration Aspiration Scale-Solids: 2-Material enters the airway, remains above the vocal folds and is ejected from the airway K[place]mling Scale-Vallecular Residue-Solids: Mild Alfreda Scale-Pyriform Sinus Residue-Solids: Trace Dysphagia Outcome and Severity Scale: Dysphagia Outcomes and Severity Scale: 5 Mild dysphagia Levels 1 & 2 on the NADEEM indicate need for nonoral nutrition. Treatment Treatment was not provided this date. Please reference care plan for treatment goals and details, if indicated. Plan MARKET RESEARCH SPECIALIST Frequency of Services during current admission: 2-3x/wk [employer] SPECIALIST Recommendation (Add'l Services): Inpatient Rehab Facility Next Visit Plan:treatment/therapy Discharge Summary Statement If this is the last swallow therapy visit, this serves as the discharge summary. us Mo Pride NP MARKET RESEARCH SPECIALIST ORDERABLES Final Resu lt [facility] * (ABNORMAL) Blood gas, venous (02/01/2025 11:12 AM CDT) pH, Venous 7.39 7.32 - 7.43 PCO2, Venous 38(L) 40 - 50 mmHg [facility] PO2, Venous 138 mmHg [facility] Comment: Interpretive Data No Reference Range Established Current Interpretive Data was last revised on 2017. HCO3 Venous, Calculated 22 20 - 30 mmol/L [facility] BE, venous -2 mmol/L [facility] Comment: Interpretive Data No Reference Range Established Current Interpretive Data was last revised on 2017. Blood 02/01/2025 11:1 2 AM CDT 02/01/2025 11:18 AM CDT Mo Pride SURFACE SUPPLY BREATHING [employer]PARATUS LAB BLOOD ORDERABLES Final Result Performing Organization Address City/[facility] Co de Phone Number [facility] [place] [address] * POCT glucose (02/01/2025 11:06 AM CDT) Glucose, POC 143 70 - 199 mg/dL Blood 02/01/2025 11:0 6 AM CDT 02/01/2025 11:06 AM CDT Gerardo Melissa MD LAB POCT ORDERABLES - DEVICE Final Result Performing Organization Address City/[facility] Co de Phone Number [facility] [place] [address] * POCT glucose (02/01/2025 8:28 AM CDT) Glucose, POC 118 70 - 199 mg/dL Blood 02/01/2025 8:28 AM CDT 02/01/2025 8:28 AM CDT us Gerardo Melissa MD LAB POCT ORDERABLES - DEVICE Final Result Performing Organization Address City/[facility] [place] [address] * Infection Prevention Jaylyn auris PCR, surveillance Axilla/Groin (02/01/2025 8:13 AM CDT) Jaylyn auris DNA Not Detected Not Detected [facility] Comment: Interpretive Data Testing performed by [facility] Disease [facility] using the [employer] gus 6800 Jaylyn auris assay. This assay detects DNA from Jaylyn auris using Real-Time PCR. This assay is laboratory developed and is not cleared by the [place] Food and Drug Administration. The performance characteristics have been verified by the [facility]. Axilla/Groin 02/01/2025 8:13 AM CDT 02/01/2025 8:42 AM CDT Jay Jay Simon MD LAB MICROBIOLOGY - GENERAL ORDER YEMI Final Result Performing Organization Address [facility]/ZIP Co de Phone Number [facility] Department [place] [address] [facility] * (ABNORMAL) CBC without differential (02/01/2025 8:13 AM CDT) WBC 11.61(H) 3.80 - 9.90 K/cumm Hgb 7.9(L) 11.9 - 15.5 g/dL [facility] Hct 23.6(L) 35.6 - 45.5 % [facility] Plt 128(L) 150 - 400 K/cumm [facility] MPV 11.0 9.1 - 12.3 fL [facility] RBC 2.67(L) 3.90 - 5.20 M/cumm [facility] MCV 88.4 81.3 - 96.4 fL [facility] MCH 29.6 27.1 - 33.3 pg [facility] MCHC 33.5 32.3 - 35.7 g/dL [facility] RDW CV 17.3(H) 11.1 - 14.9 % [facility] RDW SD 55.1(H) 35.7 - 48.1 fL [facility] NRBC abs 0.08(H) 0.00 - 0.01 K/cumm [facility] Blood 02/01/2025 8:13 AM CDT 02/01/2025 8:30 AM CDT Gerardo Melissa MD LAB BLOOD ORDERABLES Final Re sult [facility] [place] [address] * Critical Care (02/01/2025 6:52 AM CDT) Narrative Rima Gleason MD - 02/01/2025 6:52 AM CDT Rima Gleason MD 02/07/2025 3:54 PM Critical Care Performed by: Mo Pride NP Authorized by: Mo Pride NP CRITICAL CARE: Team: 83 CTICU Shift: AM Level of Billing: Critical Care My time spent with this patient was 85 minutes: Critical Provider Statement: I have seen and examined the patient on this day of service. I have reviewed and confirmed the history, physical exam, laboratory and radiologic data as documented in the signed ICU note. I have reviewed and discussed my treatment plan with the ICU team and other medical/oracle identity management consultant staff, making frequent assessments and decisions regarding this patient's complex medical care. Critical Care time was exclusive of time spent performing separately billed procedures, treating other patients, and teaching. This time was in addition to and separate from critical care provided by other practitioners in my group on this day of service. Critical Care was necessary to treat or prevent imminent or life-threatening deterioration of the following conditions: I spent time reviewing and interpreting data from bedside monitors, laboratory results, and imaging, I spent time discussing the management of this critically ill patient with consultants and the medical staff and I spent time documenting in the medical record Mo Pride SURFACE SUPPLY BREATHING APPARATUS IN CLINIC/BEDSIDE ORDERABL ES Final Result * POCT glucose (02/01/2025 3:27 AM CDT) [facility] Signature Glucose, POC 151 70 - 199 mg/dL Blood 02/01/2025 3:27 AM CDT 02/01/2025 3:27 AM CDT us Gerardo Melissa MD LAB POCT ORDERABLES - DEVICE Final Result [facility] Department [place] [address] * (ABNORMAL) CBC without differential (02/01/2025 12:19 AM CDT) WBC 9.39 3.80 - 9.90 K/cumm Hgb 7.8(L) 11.9 - 15.5 g/dL [facility] Hct 23.7(L) 35.6 - 45.5 % [facility] Plt 102(L) 150 - 400 K/cumm [facility] MPV 11.4 9.1 - 12.3 fL [facility] RBC 2.63(L) 3.90 - 5.20 M/cumm [facility] MCV 90.1 81.3 - 96.4 fL [facility] MCH 29.7 27.1 - 33.3 pg [facility] MCHC 32.9 32.3 - 35.7 g/dL [facility] RDW CV 17.3(H) 11.1 - 14.9 % [facility] RDW SD 55.9(H) 35.7 - 48.1 fL [facility] NRBC abs 0.04(H) 0.00 - 0.01 K/cumm [facility] Blood 02/01/2025 12:1 9 AM CDT 02/01/2025 2:39 AM CDT us Gerardo Melissa MD LAB BLOOD ORDERABLES Final Re sult Performing Organization Address City/[facility]/ZIP Co de Phone Number [facility] [place] [address] * Potassium, whole blood (02/01/2025 12:18 AM CDT) Pathologist [facility] Potassium, bld 3.9 3.3 - 4.9 mmol/L Blood 02/01/2025 12:1 8 AM CDT 02/01/2025 2:32 AM CDT us Kenny Birmingham SURFACE SUPPLY BREATHING APPARATUS LAB BLOOD ORDERABLES Final Result [facility] Department [place] [address] * eGFR (02/01/2025 12:18 AM CDT) eGFR 70 >=60 mL/min/1. 73 m2 Comment: Interpretive Data [...] interpretive data was last reviewed 2021. Blood 02/01/2025 12:1 8 AM CDT 02/01/2025 2:52 AM CDT Lucy Alcala [place] SURFACE SUPPLY BREATHING APPARATUS LAB BLOOD ORDERABLES Final Res ult Performing Organization Address City/[facility]/ZIP Co de Phone Number KRISTIE [facility] [place] [address] * Calcium, ionized (02/01/2025 12:18 AM CDT) Calcium, Ionized 4.84 4.50 - 5.10 mg/dL Blood 02/01/2025 12:1 8 AM CDT 02/01/2025 2:52 AM CDT [facility] LAB BLOOD ORDERABLES Final Res ult KRISTIE [facility] [place] [address] * Lactate, whole blood (02/01/2025 12:18 AM CDT) Pathologist [facility] Lactate, bld 1.8 0.7 - 2.0 mmol/L Blood 02/01/2025 12:1 8 AM CDT 02/01/2025 2:32 AM CDT us Gerardo Melissa MD LAB BLOOD ORDERABLES Final Re sult Performing Organization Address [facility] Co de Phone Number [facility] Department [place] [address] * (ABNORMAL) Phosphorus (02/01/2025 12:18 AM CDT) [facility] Phosphorus, pl 1.7(L) 2.3 - 4.5 mg/dL Blood 02/01/2025 12:1 8 AM CDT 02/01/2025 2:52 AM CDT us Yes Mayelin Birmingham SURFACE SUPPLY BREATHING APPARATUS LAB BLOOD ORDERABLES Final Result Performing Organization Address [facility] de Phone Number [facility] Department [place] [address] * Magnesium (02/01/2025 12:18 AM CDT) [facility] Magnesium 2.0 1.4 - 2.5 mg/dL Blood 02/01/2025 12:1 8 AM CDT 02/01/2025 2:52 AM CDT Yes Mayelin Birmingham NP LAB BLOOD ORDERABLES Final Result Performing Organization Address [facility] Co de Phone Number [facility] [place] [address] * (ABNORMAL) Basic metabolic panel (02/01/2025 12:18 AM CDT) Sodium 148(H) 135 - 145 mmol/L Potassium, pl 4.1 3.3 - 4.9 mmol/L [facility] Chloride 115(H) 97 - 110 mmol/L [facility] CO2 26 22 - 32 mmol/L [facility] Anion gap 7 2 - 15 mmol/L [facility] BUN 32(H) 6 - 25 mg/dL [facility] Creatinine 0.90 0.60 - 1.10 mg/dL [facility] Glucose 162 70 - 199 mg/dL [facility] Comment: Interpretive Data Fasting glucose >/= 126 [...] 2022. Calcium 8.5 8.5 - 10.3 mg/dL [facility] Blood 02/01/2025 12:1 8 AM CDT 02/01/2025 2:52 AM CDT Lucy Haas NP LAB BLOOD ORDERABLES Final Res ult [facility] [place] [address] * POCT glucose (01/31/2025 11:58 PM CDT) Glucose, POC 137 70 - 199 mg/dL Blood 01/31/2025 11:5 8 PM CDT 01/31/2025 11:58 PM CDT Gerardo Melissa MD LAB POCT ORDERABLES - DEVICE Final Result Performing Organization Address City/[facility]/ZIP Co de Phone Number [facility] [place] [address] * XR Chest 1 View - in PM (01/31/2025 10:38 PM CDT) Anatomical Region Laterality Modality Body, Chest N/A Digital Radiogra phy 02/01/2025 10:4 9 AM CDT Impressions 02/01/2025 1:25 PM CDT The current study is compared with the chest radiograph dated 01/31/2025. Median sternotomy wires are aligned and intact. A feeding tube extends below the level of the hemidiaphragm and terminates outside of the field of view. Right upper quadrant cholecystectomy clips. Coronary artery stent. Unchanged small left pleural effusion with left basilar atelectasis. No pulmonary edema. No pneumothorax. Dictated by: Toro Reinoso M.D. The radiology attending physician has personally reviewed this study, and had reviewed and/or edited this written report and agrees with it. Electronically signed by: Garfield Cagle M.D. Narrative 02/01/2025 1:25 PM CDT EXAMINATION: 1 view chest radiograph Procedure Note Garfield Cagle MD - 02/01/2025 EXAMINATION: 1 view chest radiograph IMPRESSION: The current study is compared with the chest radiograph dated 01/31/2025. Median sternotomy wires are aligned and intact. A feeding tube extends below the level of the hemidiaphragm and terminates outside of the field of view. Right upper quadrant cholecystectomy clips. Coronary artery stent. Unchanged small left pleural effusion with left basilar atelectasis. No pulmonary edema. No pneumothorax. Dictated by: Toro Reinoso M.D. The radiology attending physician has personally reviewed this study, and had reviewed and/or edited this written report and agrees with it. Electronically signed by: Garfield Cagle M.D. us Yesh Mayelin Birmingham SURFACE SUPPLY BREATHING APPARATUS IMG XR PROCEDURES Final Res ult * POCT glucose (01/31/2025 7:46 PM CDT) Glucose, POC 165 70 - 199 mg/dL Blood 01/31/2025 7:46 PM CDT 01/31/2025 7:46 PM CDT us Gerardo Melissa MD LAB POCT ORDERABLES - DEVICE Final Result [facility] [place] [address] * GENERAL (01/31/2025 7:11 PM CDT) Narrative Rima Gleason MD - 01/31/2025 7:11 PM CDT Rima Gleason MD 02/01/2025 11:02 AM General - Inpatient Date/Time: 01/31/2025 7:11 PM Performed by: Nabil Farrell MD Authorized by: Nabil Farrell MD [place] Protocol: RN Notified of Procedure: yes Informed consent: Unable to obtain due to emergent status Patient's stated name/ matches armband: Patient unable to verbalize - armband matched to name and within medical record Allergies confirmed: yes Consent form signed, dated, timed; matches correct patient, intended procedure and site: No consent form due to emergent status Imaging: N/a Lab/Diag test results: N/a Supplies, devices and special equipment are available: n/a Site/side marked: n/a Anesthesia (see MAR for exact dosage) Anesthesia method: None Hand hygiene performed: Yes PPE (including eye protection) in place as appropriate to the procedure: Yes Preparation: Patient was prepped using appropriate disinfectant and draped using sterile technique as needed Procedure details: A(n) 20 ga peripheral IV was placed in the right upper arm right, condition patent and no redness under ultrasound guidance using aseptic technique. IV with positive blood return. Flushes easily with no evidence of infiltration. Patient tolerance: Patient tolerated the procedure well with no immediate complications Complications: Two attempts. one on LUE that was unsuccessful, one on RUE that was successful. us Nabil Farrell MD IN CLINIC/BEDSIDE ORDERAB LES Final Result * Critical Care (01/31/2025 6:41 PM CDT) Narrative Rima Gleason MD - 01/31/2025 6:41 PM CDT Rima Gleason MD 02/01/2025 11:03 AM Critical Care Performed by: Sourav Eubanks PA Authorized by: Sourav Eubanks PA CRITICAL CARE: Team: 83 CTICU Shift: PM Level of Billing: Critical Care My time spent with this patient was 80 minutes: Critical Provider Statement: I have seen and examined the patient on this day of service. I have reviewed and confirmed the history, physical exam, laboratory and radiologic data as documented in the signed ICU note. I have reviewed and discussed my treatment plan with the ICU team and other medical/oracle identity management consultant staff, making frequent assessments and decisions regarding this patient's complex medical care. Critical Care time was exclusive of time spent performing separately billed procedures, treating other patients, and teaching. This time was in addition to and separate from critical care provided by other practitioners in my group on this day of service. Critical Care was necessary to treat or prevent imminent or life-threatening deterioration of the following conditions: I spent time reviewing and interpreting data from bedside monitors, laboratory results, and imaging, I spent time discussing the management of this critically ill patient with consultants and the medical staff and I spent time documenting in the medical record Sourav DIEGO IN CLINIC/BEDSIDE ORDERA BLES Final Result * Potassium, whole blood (01/31/2025 4:43 PM CDT) Potassium, bld 3.8 3.3 - 4.9 mmol/L Blood 01/31/2025 4:43 PM CDT 01/31/2025 5:20 PM CDT Sven Dowell DO LAB BLOOD ORDERABLES F inal Result [facility] Department of Laboratories [place], [place] [id number] * Type and screen (01/31/2025 4:43 PM CDT) ABO Rh B Positive Taiwo, indirect Negative [facility] Blood 01/31/2025 4:43 PM CDT 01/31/2025 5:35 PM CDT Narrative [facility] - 01/31/2025 6:40 PM CDT Has the patient had Daratumumab or Isatuximab in the past 6 months?->Unknown Yes Mayelin Birmingham SURFACE SUPPLY BREATHING APPARATUS LAB BLOOD BANK TEST ORDERAB LES Final Result Performing Organization Address [facility] Co de Phone Number [facility] [place] [address] * POCT glucose (01/31/2025 4:37 PM CDT) Glucose, POC 133 70 - 199 mg/dL Blood 01/31/2025 4:37 PM CDT 01/31/2025 4:37 PM CDT Gerardo Melissa MD LAB POCT ORDERABLES - DEVICE Final Result Performing Organization Address [facility] Co de Phone Number [facility] [place] [address] * POCT glucose (01/31/2025 11:51 AM CDT) Glucose, POC 132 70 - 199 mg/dL Blood 01/31/2025 11:5 1 AM CDT 01/31/2025 11:51 AM CDT Gerardo Melissa MD LAB POCT ORDERABLES - DEVICE Final Result Performing Organization Address [facility] Co de Phone Number [facility] [place] [address] * XR Chest 1 View (01/31/2025 10:44 AM CDT) Anatomical Region Laterality Modality Body, Chest N/A Digital Radiogra phy 01/31/2025 1:05 PM CDT Impressions 01/31/2025 1:21 PM CDT The current study is compared with the prior radiograph dated 01/30/2025. Postoperative changes of repeat median sternotomy. One of the wires are fragmented, similar to prior. A feeding tube extends below the level of the hemidiaphragm. Left internal jugular central venous catheter tip overlies superior vena cava. Bilateral chest tubes have been removed. Increased left-sided pleural effusion with associated atelectasis. No pleural effusion is noted on the right. No pneumothorax. Dictated by: Karl Zapata M.D. The radiology attending physician has personally reviewed this study, and had reviewed and/or edited this written report and agrees with it. Electronically signed by: Tu Rojas M.D. Narrative 01/31/2025 1:21 PM CDT EXAMINATION: 1 view chest radiograph Procedure Note Tu Rojas MD - 01/31/2025 EXAMINATION: 1 view chest radiograph IMPRESSION: The current study is compared with the prior radiograph dated 01/30/2025. Postoperative changes of repeat median sternotomy. One of the wires are fragmented, similar to prior. A feeding tube extends below the level of the hemidiaphragm. Left internal jugular central venous catheter tip overlies superior vena cava. Bilateral chest tubes have been removed. Increased left-sided pleural effusion with associated atelectasis. No pleural effusion is noted on the right. No pneumothorax. Dictated by: Karl Zapata M.D. The radiology attending physician has personally reviewed this study, and had reviewed and/or edited this written report and agrees with it. Electronically signed by: Tu Rojas M.D. Flynn Bunch SURFACE SUPPLY BREATHING APPARATUS IMG XR PROCEDURES Final Result * POCT glucose (01/31/2025 7:19 AM CDT) Glucose, POC 118 70 - 199 mg/dL Blood 01/31/2025 7:19 AM CDT 01/31/2025 7:19 AM CDT Gerardo Melissa MD LAB POCT ORDERABLES - DEVICE Final Result [facility] [place] [address] * Critical Care (01/31/2025 7:00 AM CDT) Narrative Rima Gleason MD - 01/31/2025 7:00 AM CDT Rima Gleason MD 02/01/2025 11:03 AM Critical Care Performed by: Flynn Bunch NP Authorized by: Flynn Bunch NP CRITICAL CARE: Team: 83 CTICU Shift: AM Level of Billing: Critical Care My time spent with this patient was 90 minutes: Critical Provider Statement: I have seen and examined the patient on this day of service. I have reviewed and confirmed the history, physical exam, laboratory and radiologic data as documented in the signed ICU note. I have reviewed and discussed my treatment plan with the ICU team and other medical/oracle identity management consultant staff, making frequent assessments and decisions regarding this patient's complex medical care. Critical Care time was exclusive of time spent performing separately billed procedures, treating other patients, and teaching. This time was in addition to and separate from critical care provided by other practitioners in my group on this day of service. Critical Care was necessary to treat or prevent imminent or life-threatening deterioration of the following conditions: us Flynn Bunch NP IN CLINIC/BEDSIDE ORDER YEMI Final Result * POCT glucose (01/31/2025 3:11 AM CDT) Glucose, POC 135 70 - 199 mg/dL Blood 01/31/2025 3:11 AM CDT 01/31/2025 3:11 AM CDT us Gerardo Melissa MD LAB POCT ORDERABLES - DEVICE Final Result [facility] [place] [address] * POCT glucose (01/31/2025 12:59 AM CDT) Glucose, POC 137 70 - 199 mg/dL Blood 01/31/2025 12:5 9 AM CDT 01/31/2025 12:59 AM CDT us Gerardo Melissa MD LAB POCT ORDERABLES - DEVICE Final Result Performing Organization Address [facility] de Phone Number [facility] [place] [address] * (ABNORMAL) CBC without differential (01/31/2025 12:54 AM CDT) Pathologist [facility] WBC 11.95(H) 3.80 - 9.90 K/cumm Hgb 8.0(L) 11.9 - 15.5 g/dL [facility] Hct 24.1(L) 35.6 - 45.5 % [facility] Plt 99(L) 150 - 400 K/cumm [facility] MPV 11.0 9.1 - 12.3 fL [facility] RBC 2.72(L) 3.90 - 5.20 M/cumm [facility] MCV 88.6 81.3 - 96.4 fL [facility] MCH 29.4 27.1 - 33.3 pg [facility] MCHC 33.2 32.3 - 35.7 g/dL [facility] RDW CV 17.9(H) 11.1 - 14.9 % [facility] RDW SD 57.3(H) 35.7 - 48.1 fL [facility] NRBC abs 0.02(H) 0.00 - 0.01 K/cumm [facility] Blood 01/31/2025 12:5 4 AM CDT 01/31/2025 1:18 AM CDT us Gerardo Melissa MD LAB BLOOD ORDERABLES Final Re sult Performing Organization Address [facility] Co de Phone Number [facility] Department [place] [address] * Potassium, whole blood (01/31/2025 12:53 AM CDT) Pathologist [facility] Potassium, bld 4.3 3.3 - 4.9 mmol/L Blood 01/31/2025 12:5 3 AM CDT 01/31/2025 1:11 AM CDT Kenny Birmingham SURFACE SUPPLY BREATHING APPARATUS LAB BLOOD ORDERABLES Final Result Performing Organization Address City/[facility]/ZIP Co de Phone Number K[facility]ST[facility] [place] [address] * (ABNORMAL) eGFR (01/31/2025 12:53 AM CDT) eGFR 54(L) >=60 mL/min/1. 73 m2 Comment: Interpretive Data [...] interpretive data was last reviewed 2021. Blood 01/31/2025 12:5 3 AM CDT 01/31/2025 1:14 AM CDT us Lucy Haas SURFACE SUPPLY BREATHING APPARATUS LAB BLOOD ORDERABLES Final Res ult Performing Organization Address City/[facility]/ZIP Co de Phone Number K[facility] [place] [address] * Calcium, ionized (01/31/2025 12:53 AM CDT) Calcium, Ionized 5.03 4.50 - 5.10 mg/dL Blood 01/31/2025 12:5 3 AM CDT 01/31/2025 1:14 AM CDT Lucy Haas SURFACE SUPPLY BREATHING APPARATUS LAB BLOOD ORDERABLES Final Res ult Performing Organization Address [facility] Co de Phone Number [facility] [place] [address] * Lactate, whole blood (01/31/2025 12:53 AM CDT) Lactate, bld 0.9 0.7 - 2.0 mmol/L Blood 01/31/2025 12:5 3 AM CDT 01/31/2025 1:11 AM CDT Gerardo Melissa MD LAB BLOOD ORDERABLES Final Re sult Performing Organization Address [facility] Co de Phone Number [facility] [place] [address] * Phosphorus (01/31/2025 12:53 AM CDT) Phosphorus, pl 2.3 2.3 - 4.5 mg/dL Blood 01/31/2025 12:5 3 AM CDT 01/31/2025 1:14 AM CDT Kenny Birmingham SURFACE SUPPLY BREATHING APPARATUS LAB BLOOD ORDERABLES Final Result Performing Organization Address City/[facility] Co de Phone Number [facility] [place] [address] * Magnesium (01/31/2025 12:53 AM CDT) Magnesium 2.4 1.4 - 2.5 mg/dL Blood 01/31/2025 12:5 3 AM CDT 01/31/2025 1:14 AM CDT us Kenny Birmingham SURFACE SUPPLY BREATHING APPARATUS LAB BLOOD ORDERABLES Final Result [facility] [place] [address] * (ABNORMAL) Basic metabolic panel (01/31/2025 12:53 AM CDT) Pathologist [facility] Sodium 147(H) 135 - 145 mmol/L Potassium, pl 4.3 3.3 - 4.9 mmol/L [facility] Chloride 115(H) 97 - 110 mmol/L [facility] CO2 26 22 - 32 mmol/L [facility] Anion gap 6 2 - 15 mmol/L [facility] BUN 35(H) 6 - 25 mg/dL [facility] Creatinine 1.12(H) 0.60 - 1.10 mg/dL [facility] Glucose 122 70 - 199 mg/dL [facility] Comment: Interpretive Data Fasting glucose >/= 126 [...] interpretive data was last revised 2022. Calcium 8.6 8.5 - 10.3 mg/dL [facility] Blood 01/31/2025 12:5 3 AM CDT 01/31/2025 1:14 AM CDT us Lucy Haas SURFACE SUPPLY BREATHING APPARATUS LAB BLOOD ORDERABLES Final Res ult [facility] [place] [address] * Potassium, whole blood (01/30/2025 10:51 PM CDT) Potassium, bld 4.2 3.3 - 4.9 mmol/L Blood 01/30/2025 10:5 1 PM CDT 01/31/2025 12:27 AM CDT Sven Dowell DO LAB BLOOD ORDERABLES F inal Result Performing Organization Address [facility] Co de Phone Number [facility] [place] [address] * (ABNORMAL) Blood gas, arterial (01/30/2025 10:51 PM CDT) Pathologist [facility] [place] pH, Art 7.32(L) 7.35 - 7.45 PCO2, Arterial 44 35 - 45 mmHg [facility] PO2, Arterial 95 83 - 108 mmHg [facility] HCO3 Art (Calculated) 22 20 - 30 mmol/L [facility] BE, art -3 mmol/L [facility] Comment: Interpretive Data No Reference Range Established Current Interpretive Data was last revised on 2017 O2 Sat Art (Measured) 97(H) 90 - 95 % [facility] Blood 01/30/2025 10:5 1 PM CDT 01/31/2025 12:27 AM CDT Lucy Haas SURFACE SUPPLY BREATHING APPARATUS LAB BLOOD ORDERABLES Final Res ult Performing Organization Address [facility] Co de Phone Number [facility] [place] [address] * XR Chest 1 View - in PM (01/30/2025 10:44 PM CDT) Anatomical Region Laterality Modality Body, Chest N/A Digital Radiogra phy 01/31/2025 9:15 AM CDT Impressions 01/31/2025 9:37 AM CDT The current study is compared with the prior radiograph dated 01/29/2025. First exam 01/30/2025, 8:39 PM Interval removal of endotracheal tube and gastric tube. Postoperative changes of redo median sternotomy one of the wires are fragmented, similar to prior. A feeding tube extends below the level of the hemidiaphragm. Bilateral pleural drains. A left internal jugular catheter is in place, tip overlies the superior vena cava. Surgical clips unchanged position. Trace bilateral pleural effusions. No pneumothorax. The heart size is unchanged. Second exam 01/30/2025, 9:47 PM No significant interval change. Dictated by: Nita Jama M.D. The radiology attending physician has personally reviewed this study, and had reviewed and/or edited this written report and agrees with it. Electronically signed by: Ted Washington M.D. Narrative 01/31/2025 9:37 AM CDT Examination: 2 portable chests Chest one view portable 01/30/2025, 8:39 PM Chest one view portable 01/30/2025, 9:47 PM Procedure Note Ted Washington MD - 01/31/2025 Examination: 2 portable chests Chest one view portable 01/30/2025, 8:39 PM Chest one view portable 01/30/2025, 9:47 PM IMPRESSION: The current study is compared with the prior radiograph dated 01/29/2025. First exam 01/30/2025, 8:39 PM Interval removal of endotracheal tube and gastric tube. Postoperative changes of redo median sternotomy one of the wires are fragmented, similar to prior. A feeding tube extends below the level of the hemidiaphragm. Bilateral pleural drains. A left internal jugular catheter is in place, tip overlies the superior vena cava. Surgical clips unchanged position. Trace bilateral pleural effusions. No pneumothorax. The heart size is unchanged. Second exam 01/30/2025, 9:47 PM No significant interval change. Dictated by: Nita Jama M.D. The radiology attending physician has personally reviewed this study, and had reviewed and/or edited this written report and agrees with it. Electronically signed by: Ted Washington M.D. us Yesh Mayelin Birmingham SURFACE SUPPLY BREATHING APPARATUS IMG XR PROCEDURES Final Res ult * (ABNORMAL) CBC without differential (01/30/2025 9:35 PM CDT) WBC 10.42(H) 3.80 - 9.90 K/cumm Hgb 7.8(L) 11.9 - 15.5 g/dL [facility] Hct 23.1(L) 35.6 - 45.5 % [facility] Plt 96(L) 150 - 400 K/cumm [facility] MPV 11.1 9.1 - 12.3 fL [facility] RBC 2.63(L) 3.90 - 5.20 M/cumm [facility] MCV 87.8 81.3 - 96.4 fL [facility] MCH 29.7 27.1 - 33.3 pg [facility] MCHC 33.8 32.3 - 35.7 g/dL [facility] RDW CV 18.0(H) 11.1 - 14.9 % [facility] RDW SD 57.1(H) 35.7 - 48.1 fL [facility] NRBC abs 0.03(H) 0.00 - 0.01 K/cumm [facility] Blood 01/30/2025 9:35 PM CDT 01/30/2025 11:11 PM CDT Gerardo Melissa MD LAB BLOOD ORDERABLES Final Re sult [facility] Department [place] [address] * XR Chest 1 View - in PM (01/30/2025 9:12 PM CDT) Anatomical Region Laterality Modality Body, Chest N/A Digital Radiogra phy 01/31/2025 9:15 AM CDT Impressions 01/31/2025 9:37 AM CDT The current study is compared with the prior radiograph dated 01/29/2025. First exam 01/30/2025, 8:39 PM Interval removal of endotracheal tube and gastric tube. Postoperative changes of redo median sternotomy one of the wires are fragmented, similar to prior. A feeding tube extends below the level of the hemidiaphragm. Bilateral pleural drains. A left internal jugular catheter is in place, tip overlies the superior vena cava. Surgical clips unchanged position. Trace bilateral pleural effusions. No pneumothorax. The heart size is unchanged. Second exam 01/30/2025, 9:47 PM No significant interval change. Dictated by: Nita Jama M.D. The radiology attending physician has personally reviewed this study, and had reviewed and/or edited this written report and agrees with it. Electronically signed by: Ted Washington M.D. Narrative 01/31/2025 9:37 AM CDT Examination: 2 portable chests Chest one view portable 01/30/2025, 8:39 PM Chest one view portable 01/30/2025, 9:47 PM Procedure Note Ted Washington MD - 01/31/2025 Examination: 2 portable chests Chest one view portable 01/30/2025, 8:39 PM Chest one view portable 01/30/2025, 9:47 PM IMPRESSION: The current study is compared with the prior radiograph dated 01/29/2025. First exam 01/30/2025, 8:39 PM Interval removal of endotracheal tube and gastric tube. Postoperative changes of redo median sternotomy one of the wires are fragmented, similar to prior. A feeding tube extends below the level of the hemidiaphragm. Bilateral pleural drains. A left internal jugular catheter is in place, tip overlies the superior vena cava. Surgical clips unchanged position. Trace bilateral pleural effusions. No pneumothorax. The heart size is unchanged. Second exam 01/30/2025, 9:47 PM No significant interval change. Dictated by: Nita Jama M.D. The radiology attending physician has personally reviewed this study, and had reviewed and/or edited this written report and agrees with it. Electronically signed by: Ted Washington M.D. us Yesh Mayelin Birmingham SURFACE SUPPLY BREATHING APPARATUS IMG XR PROCEDURES Final Res ult * POCT glucose (01/30/2025 8:52 PM CDT) Glucose, POC 153 70 - 199 mg/dL Blood 01/30/2025 8:52 PM CDT 01/30/2025 8:52 PM CDT Gerardo Melissa MD LAB POCT ORDERABLES - DEVICE Final Result [facility] [place] [address] * Critical Care (01/30/2025 7:28 PM CDT) Narrative Rima Gleason MD - 01/30/2025 7:28 PM CDT Rima Gleason MD 01/31/2025 8:35 AM Critical Care Performed by: Sourav Eubanks PA Authorized by: Sourav Eubanks PA CRITICAL CARE: Team: 83 CTICU Shift: PM Level of Billing: Critical Care My time spent with this patient was 80 minutes: Critical Provider Statement: I have seen and examined the patient on this day of service. I have reviewed and confirmed the history, physical exam, laboratory and radiologic data as documented in the signed ICU note. I have reviewed and discussed my treatment plan with the ICU team and other medical/oracle identity management consultant staff, making frequent assessments and decisions regarding this patient's complex medical care. Critical Care time was exclusive of time spent performing separately billed procedures, treating other patients, and teaching. This time was in addition to and separate from critical care provided by other practitioners in my group on this day of service. Critical Care was necessary to treat or prevent imminent or life-threatening deterioration of the following conditions: I spent time reviewing and interpreting data from bedside monitors, laboratory results, and imaging, I spent time discussing the management of this critically ill patient with consultants and the medical staff and I spent time documenting in the medical record Sourav D[facility] IN CLINIC/BEDSIDE ORDERA BLES Final Result * (ABNORMAL) Blood gas, arterial (01/30/2025 5:25 PM CDT) pH, Art 7.38 7.35 - 7.45 PCO2, Arterial 38 35 - 45 mmHg [facility] PO2, Arterial 195(H) 83 - 108 mmHg [facility] HCO3 Art (Calculated) 22 20 - 30 mmol/L [facility] BE, art -3 mmol/L [facility] Comment: Interpretive Data No Reference Range Established Current Interpretive Data was last revised on 2017 O2 Sat Art (Measured) 100(H) 90 - 95 % [facility] Blood 01/30/2025 5:25 PM CDT 01/30/2025 5:37 PM CDT Lucy Haas SURFACE SUPPLY BREATHING APPARATUS LAB BLOOD ORDERABLES Final Res ult [facility] [place] [address] * Potassium, whole blood (01/30/2025 3:02 PM CDT) Potassium, bld 3.6 3.3 - 4.9 mmol/L Blood 01/30/2025 3:02 PM CDT 01/30/2025 3:21 PM CDT Sven Dowell DO LAB BLOOD ORDERABLES F inal Result Performing Organization Address [facility]/ZIP Co de Phone Number [facility] Department [place] [address] * POCT glucose (01/30/2025 2:59 PM CDT) Glucose, POC 162 70 - 199 mg/dL Blood 01/30/2025 2:59 PM CDT 01/30/2025 2:59 PM CDT Gerardo Melissa MD LAB POCT ORDERABLES - DEVICE Final Result Performing Organization Address City/[facility]/ZIP Co de Phone Number [facility] Department [place] [address] * Lactate, whole blood (01/30/2025 11:23 AM CDT) Lactate, bld 1.1 0.7 - 2.0 mmol/L Blood 01/30/2025 11:2 3 AM CDT 01/30/2025 11:42 AM CDT us Yes Mayelin Birmingham SURFACE SUPPLY BREATHING APPARATUS LAB BLOOD ORDERABLES Final Result Performing Organization Address [facility]/ZIP Co de Phone Number [facility] [place] [place] [address] * (ABNORMAL) CBC without differential (01/30/2025 11:23 AM CDT) [facility] WBC 9.48 3.80 - 9.90 K/cumm Hgb 7.3(L) 11.9 - 15.5 g/dL [facility] Hct 22.2(L) 35.6 - 45.5 % [facility] Plt 86(L) 150 - 400 K/cumm [facility] MPV 10.8 9.1 - 12.3 fL [facility] RBC 2.50(L) 3.90 - 5.20 M/cumm [facility] MCV 88.8 81.3 - 96.4 fL [facility] MCH 29.2 27.1 - 33.3 pg [facility] MCHC 32.9 32.3 - 35.7 g/dL [facility] RDW CV 17.7(H) 11.1 - 14.9 % [facility] RDW SD 56.5(H) 35.7 - 48.1 fL [facility] NRBC abs 0.02(H) 0.00 - 0.01 K/cumm [facility] Blood 01/30/2025 11:2 3 AM CDT 01/30/2025 12:03 PM CDT us Yes Mayelin Birmingham SURFACE SUPPLY BREATHING APPARATUS LAB BLOOD ORDERABLES Final Result Performing Organization Address City/[facility]/ZIP Co de Phone Number [facility] [place] [address] * POCT glucose (01/30/2025 11:22 AM CDT) Glucose, POC 142 70 - 199 mg/dL Blood 01/30/2025 11:2 2 AM CDT 01/30/2025 11:22 AM CDT Gerardo Melissa MD LAB POCT ORDERABLES - DEVICE Final Result [facility] Department [place] [address] * XR Abdomen 1 View AP (01/30/2025 9:00 AM CDT) Anatomical Region Laterality Modality Body, Abdomen N/A Computed Radiogr aphy 01/30/2025 10:0 2 AM CDT Impressions 01/30/2025 11:20 AM CDT Median sternotomy wires are noted. Surgical clips project over the right upper quadrant. Pleural and mediastinal drains are partially imaged. Interval removal of gastric tube. There is a feeding tube with tip projecting over the peripyloric region. Dictated by: Rakan Fernandez M.D. The radiology attending physician has personally reviewed this study, and had reviewed and/or edited this written report and agrees with it. Electronically signed by: Jordan Meléndez MD Narrative 01/30/2025 11:20 AM CDT EXAMINATION: Abdomen, one view. HISTORY: Check tube placement. COMPARISON: 01/28/2025 Procedure Note Jordan Meléndez MD - 01/30/2025 EXAMINATION: Abdomen, one view. HISTORY: Check tube placement. COMPARISON: 01/28/2025 IMPRESSION: Median sternotomy wires are noted. Surgical clips project over the right upper quadrant. Pleural and mediastinal drains are partially imaged. Interval removal of gastric tube. There is a feeding tube with tip projecting over the peripyloric region. Dictated by: Rakan Fernandez M.D. The radiology attending physician has personally reviewed this study, and had reviewed and/or edited this written report and agrees with it. Electronically signed by: Jordan Meléndez MD Sven Dowell DO IMG XR PROCEDURES Suni l Result * POCT glucose (01/30/2025 7:21 AM CDT) [facility] Glucose, POC 157 70 - 199 mg/dL Blood 01/30/2025 7:21 AM CDT 01/30/2025 7:21 AM CDT Gerardo Melissa MD LAB POCT ORDERABLES - DEVICE Final Result Performing Organization Address [facility]/ZIP Co de Phone Number [facility] Department [place] [address] * (ABNORMAL) CBC without differential (01/30/2025 5:25 AM CDT) [facility] WBC 7.80 3.80 - 9.90 K/cumm Hgb 9.5(L) 11.9 - 15.5 g/dL [facility] Hct 27.6(L) 35.6 - 45.5 % [facility] Plt 80(L) 150 - 400 K/cumm [facility] MPV 11.5 9.1 - 12.3 fL [facility] RBC 3.22(L) 3.90 - 5.20 M/cumm [facility] MCV 85.7 81.3 - 96.4 fL [facility] MCH 29.5 27.1 - 33.3 pg [facility] MCHC 34.4 32.3 - 35.7 g/dL [facility] RDW CV 17.2(H) 11.1 - 14.9 % [facility] RDW SD 53.7(H) 35.7 - 48.1 fL [facility] NRBC abs 0.03(H) 0.00 - 0.01 K/cumm [facility] Blood 01/30/2025 5:25 AM CDT 01/30/2025 6:11 AM CDT Kenny Birmingham NP LAB BLOOD ORDERABLES Final Result [facility] [place] [address] * Lactate, whole blood (01/30/2025 4:47 AM CDT) Lactate, bld 1.2 0.7 - 2.0 mmol/L Blood 01/30/2025 4:47 AM CDT 01/30/2025 5:14 AM CDT us Londonh Mayelin Birmingham NP LAB BLOOD ORDERABLES Final Result Performing Organization Address [facility] Co de Phone Number [facility] [place] [address] * (ABNORMAL) Blood gas, arterial (01/30/2025 4:47 AM CDT) pH, Art 7.37 7.35 - 7.45 PCO2, Arterial 39 35 - 45 mmHg [facility] PO2, Arterial 126(H) 83 - 108 mmHg [facility] HCO3 Art (Calculated) 22 20 - 30 mmol/L [facility] BE, art -2 mmol/L [facility] Comment: Interpretive Data No Reference Range Established Current Interpretive Data was last revised on 2017 O2 Sat Art (Measured) 99(H) 90 - 95 % [facility] Blood 01/30/2025 4:47 AM CDT 01/30/2025 5:14 AM CDT us Gerardo Melissa MD LAB BLOOD ORDERABLES Final Re sult Performing Organization Address [facility] Co de Phone Number [facility] [place] [address] * POCT glucose (01/30/2025 4:24 AM CDT) Glucose, POC 169 70 - 199 mg/dL Blood 01/30/2025 4:24 AM CDT 01/30/2025 4:24 AM CDT Gerardo Melissa MD LAB POCT ORDERABLES - DEVICE Final Result Performing Organization Address City/[facility]/ZIP Co de Phone Number [facility] [place] [address] * (ABNORMAL) Blood gas, arterial (01/30/2025 1:49 AM CDT) Pathologist [facility] [place] pH, Art 7.46(H) 7.35 - 7.45 PCO2, Arterial 29(L) 35 - 45 mmHg [facility] PO2, Arterial 99 83 - 108 mmHg [facility] HCO3 Art (Calculated) 21 20 - 30 mmol/L [facility] BE, art -2 mmol/L [facility] Comment: Interpretive Data No Reference Range Established Current Interpretive Data was last revised on 2017 O2 Sat Art (Measured) 99(H) 90 - 95 % [facility] Blood 01/30/2025 1:49 AM CDT 01/30/2025 2:04 AM CDT Lucy Haas SURFACE SUPPLY BREATHING APPARATUS LAB BLOOD ORDERABLES Final Res ult Performing Organization Address [facility] Co de Phone Number [facility] [place] [address] * POCT glucose (01/29/2025 11:59 PM CDT) Glucose, POC 186 70 - 199 mg/dL Blood 01/29/2025 11:5 9 PM CDT 01/29/2025 11:59 PM CDT Gerardo Melissa MD LAB POCT ORDERABLES - DEVICE Final Result Performing Organization Address [facility] Co de Phone Number [facility] [place] [address] * Potassium, whole blood (01/29/2025 11:51 PM CDT) Potassium, bld 4.1 3.3 - 4.9 mmol/L Blood 01/29/2025 11:5 1 PM CDT 01/30/2025 12:23 AM CDT Gerardo Melissa MD LAB BLOOD ORDERABLES Final Re sult Performing Organization Address City/[facility]/ZIP Co de Phone Number [facility] [place] [address] * (ABNORMAL) eGFR (01/29/2025 11:51 PM CDT) eGFR 41(L) >=60 mL/min/1. 73 m2 Comment: Interpretive Data [...] interpretive data was last reviewed 2021. Blood 01/29/2025 11:5 1 PM CDT 01/30/2025 12:55 AM CDT Lucy Haas SURFACE SUPPLY BREATHING APPARATUS LAB BLOOD ORDERABLES Final Res ult Performing Organization Address City/[facility]/ZIP Co de Phone Number [facility] [place] [address] * Calcium, ionized (01/29/2025 11:51 PM CDT) Calcium, Ionized 4.85 4.50 - 5.10 mg/dL Blood 01/29/2025 11:5 1 PM CDT 01/30/2025 12:55 AM CDT Lucy Haas SURFACE SUPPLY BREATHING APPARATUS LAB BLOOD ORDERABLES Final Res ult Performing Organization Address [facility] Co de Phone Number [facility] [place] [address] * (ABNORMAL) Lactate, whole blood (01/29/2025 11:51 PM CDT) Pathologist [facility] [place] Lactate, bld 2.9(H) 0.7 - 2.0 mmol/L Blood 01/29/2025 11:5 1 PM CDT 01/30/2025 12:23 AM CDT Kenny Birmingham SURFACE SUPPLY BREATHING APPARATUS LAB BLOOD ORDERABLES Final Result Performing Organization Address [facility] de Phone Number [facility] Department [place] [address] * (ABNORMAL) Protime-INR (01/29/2025 11:51 PM CDT) Pathologist [facility] [place] PT 13.7(H) 10.2 - 13.5 sec INR 1.22(H) 0.90 - 1.20 [facility] Comment: Interpretive data Oral anticoagulant therapeutic ranges: Venous thromboembolism prophylaxis or treatment: 2.0-3.0 CARDIOLOGY Standard range: 2.0-3.0 High-intensity range: 2.5-3.5 Refer to indication-specific guidelines for appropriate target ranges for prosthetic heart valve replacement. Current interpretive data was last revised on 2019. Blood 01/29/2025 11:5 1 PM CDT 01/30/2025 12:20 AM CDT Lucy Haas SURFACE SUPPLY BREATHING APPARATUS LAB BLOOD ORDERABLES Final Res ult Performing Organization Address [facility]/ZIP Co de Phone Number [facility] Department [place] [address] * (ABNORMAL) CBC without differential (01/29/2025 11:51 PM CDT) [facility] WBC 9.60 3.80 - 9.90 K/cumm Hgb 7.6(L) 11.9 - 15.5 g/dL [facility] Hct 21.7(L) 35.6 - 45.5 % [facility] Plt 96(L) 150 - 400 K/cumm [facility] MPV 11.0 9.1 - 12.3 fL [facility] RBC 2.56(L) 3.90 - 5.20 M/cumm [facility] MCV 84.8 81.3 - 96.4 fL [facility] MCH 29.7 27.1 - 33.3 pg [facility] MCHC 35.0 32.3 - 35.7 g/dL [facility] RDW CV 17.0(H) 11.1 - 14.9 % [facility] RDW SD 51.9(H) 35.7 - 48.1 fL [facility] NRBC abs 0.03(H) 0.00 - 0.01 K/cumm [facility] Blood 01/29/2025 11:5 1 PM CDT 01/30/2025 12:25 AM CDT us Yesh Mayelin Birmingham SURFACE SUPPLY BREATHING APPARATUS LAB BLOOD ORDERABLES Final Result Performing Organization Address [facility] Co de Phone Number [facility] Department [place] [address] * Triglycerides (01/29/2025 11:51 PM CDT) [facility] Triglycerides 123 <=149 mg/dL Comment: Interpretive Data Ages < or [...] Data was last revised on 2017. Blood 01/29/2025 11:5 1 PM CDT 01/30/2025 12:55 AM CDT us Gerardo Melissa MD LAB BLOOD ORDERABLES Final Re sult Performing Organization Address City/[facility] Co de Phone Number [facility] [place] [address] * Phosphorus (01/29/2025 11:51 PM CDT) Phosphorus, pl 3.4 2.3 - 4.5 mg/dL Blood 01/29/2025 11:5 1 PM CDT 01/30/2025 12:55 AM CDT us Gerardo Melissa MD LAB BLOOD ORDERABLES Final Re sult Performing Organization Address [facility] Co de Phone Number [facility] [place] [address] * Magnesium (01/29/2025 11:51 PM CDT) Magnesium 2.4 1.4 - 2.5 mg/dL Blood 01/29/2025 11:5 1 PM CDT 01/30/2025 12:55 AM CDT us Gerardo Melissa MD LAB BLOOD ORDERABLES Final Re sult Performing Organization Address City/[facility] Co de Phone Number [facility] [place] [address] * (ABNORMAL) Creatine kinase (CK), total (01/29/2025 11:51 PM CDT) CK 760(H) 30 - 200 Units/L Blood 01/29/2025 11:5 1 PM CDT 01/30/2025 12:55 AM CDT Lucy Haas SURFACE SUPPLY BREATHING APPARATUS LAB BLOOD ORDERABLES Final Res ult [facility] [place] [address] * (ABNORMAL) Comprehensive metabolic panel (01/29/2025 11:51 PM CDT) Pathologist [facility] [place] Sodium 145 135 - 145 mmol/L Potassium, pl 4.1 3.3 - 4.9 mmol/L [facility] Chloride 114(H) 97 - 110 mmol/L [facility] CO2 22 22 - 32 mmol/L [facility] Anion gap 9 2 - 15 mmol/L [facility] BUN 32(H) 6 - 25 mg/dL [facility] Creatinine 1.40(H) 0.60 - 1.10 mg/dL [facility] Glucose 165 70 - 199 mg/dL [facility] Comment: Interpretive Data Fasting glucose >/= 126 [...] interpretive data was last revised 2022. Calcium 8.6 8.5 - 10.3 mg/dL [facility] Bilirubin, total 0.5 0.1 - 1.2 mg/dL [facility] Protein, pl 5.1(L) 6.5 - 8.5 g/dL [facility] Albumin 3.2(L) 3.5 - 5.0 g/dL [facility] Alk phos 33(L) 40 - 130 Units/L [facility] ALT 103(H) 7 - 45 Units/L [facility] AST 292(H) 10 - 45 Units/L [facility] Blood 01/29/2025 11:5 1 PM CDT 01/30/2025 12:55 AM CDT us Lucy Haas SURFACE SUPPLY BREATHING APPARATUS LAB BLOOD ORDERABLES Final Res ult [facility] [place] [address] * Transfuse platelets (01/29/2025 10:20 PM CDT) Blood us Londonh Mayelin Birmingham SURFACE SUPPLY BREATHING APPARATUS BLOOD TRANSFUSION ORDERABLE S Final Result Performing Organization Address [facility] Co de Phone Number [facility] [facility] [place] [address] * XR Chest 1 View - in PM (01/29/2025 10:18 PM CDT) Anatomical Region Laterality Modality Body, Chest N/A Digital Radiogra phy 01/30/2025 9:58 AM CDT Impressions 01/30/2025 12:33 PM CDT The current study is compared with the prior radiograph dated 01/28/2025. Median sternotomy wires are in an appropriate position. An endotracheal tube is approximately 2.5 centimeters above the yue. Left internal jugular central venous catheter tip overlies the superior vena cava. Bilateral chest tubes are present. Nasogastric tube terminates below the diaphragm and over the stomach. Small lung volumes with left-sided pleural effusion and associated atelectasis. No pneumothorax. Dictated by: Karl Zapata M.D. The radiology attending physician has personally reviewed this study, and had reviewed and/or edited this written report and agrees with it. Electronically signed by: Franklyn Berry M.D. Narrative 01/30/2025 12:33 PM CDT EXAMINATION: 1 view chest radiograph Procedure Note Franklyn Berry MD - 01/30/2025 EXAMINATION: 1 view chest radiograph IMPRESSION: The current study is compared with the prior radiograph dated 01/28/2025. Median sternotomy wires are in an appropriate position. An endotracheal tube is approximately 2.5 centimeters above the yue. Left internal jugular central venous catheter tip overlies the superior vena cava. Bilateral chest tubes are present. Nasogastric tube terminates below the diaphragm and over the stomach. Small lung volumes with left-sided pleural effusion and associated atelectasis. No pneumothorax. Dictated by: Karl Zapata M.D. The radiology attending physician has personally reviewed this study, and had reviewed and/or edited this written report and agrees with it. Electronically signed by: Franklyn Berry M.D. us Yesh Mayelin Birmingham SURFACE SUPPLY BREATHING APPARATUS IMG XR PROCEDURES Final Res ult * POCT glucose (01/29/2025 8:15 PM CDT) Glucose, POC 149 70 - 199 mg/dL Blood 01/29/2025 8:15 PM CDT 01/29/2025 8:15 PM CDT us Gerardo Melissa MD LAB POCT ORDERABLES - DEVICE Final Result Performing Organization Address City/State/[facility] Co de Phone Number [facility] [place] [address] * Critical Care (01/29/2025 6:51 PM CDT) Narrative Rima Gleason MD - 01/29/2025 6:51 PM CDT Rima Gleason MD 01/30/2025 10:56 AM Critical Care Performed by: Lucy Haas NP Authorized by: Lucy Haas NP CRITICAL CARE: Team: 83 CTICU Shift: PM Level of Billing: Critical Care My time spent with this patient was 85 minutes: Critical Provider Statement: I have seen and examined the patient on this day of service. I have reviewed and confirmed the history, physical exam, laboratory and radiologic data as documented in the signed ICU note. I have reviewed and discussed my treatment plan with the ICU team and other medical/oracle identity management consultant staff, making frequent assessments and decisions regarding this patient's complex medical care. Critical Care time was exclusive of time spent performing separately billed procedures, treating other patients, and teaching. This time was in addition to and separate from critical care provided by other practitioners in my group on this day of service. Critical Care was necessary to treat or prevent imminent or life-threatening deterioration of the following conditions: I spent time reviewing and interpreting data from bedside monitors, laboratory results, and imaging, I spent time discussing the management of this critically ill patient with consultants and the medical staff and I spent time documenting in the medical record us Lucy Haas NP IN CLINIC/BEDSIDE ORDERABLES F inal Result * (ABNORMAL) Creatine kinase (CK), total (01/29/2025 6:31 PM CDT) CK 744(H) 30 - 200 Units/L Blood 01/29/2025 6:31 PM CDT 01/29/2025 6:48 PM CDT us Yes Mayelin Birmingham NP LAB BLOOD ORDERABLES Final Result Performing Organization Address [facility] Co de Phone Number [facility] [place] [address] * (ABNORMAL) Lactate, whole blood (01/29/2025 6:19 PM CDT) Lactate, bld 2.7(H) 0.7 - 2.0 mmol/L Blood 01/29/2025 6:19 PM CDT 01/29/2025 6:25 PM CDT [place] Mayelin Birmingham NP LAB BLOOD ORDERABLES Final Result Performing Organization Address [facility] Co de Phone Number [facility] [place] [address] * (ABNORMAL) CBC without differential (01/29/2025 6:19 PM CDT) [facility] Signature WBC 9.66 3.80 - 9.90 K/cumm Hgb 8.0(L) 11.9 - 15.5 g/dL [facility] Hct 23.2(L) 35.6 - 45.5 % [facility] Plt 78(L) 150 - 400 K/cumm [facility] MPV 11.0 9.1 - 12.3 fL [facility] RBC 2.72(L) 3.90 - 5.20 M/cumm [facility] MCV 85.3 81.3 - 96.4 fL [facility] MCH 29.4 27.1 - 33.3 pg [facility] MCHC 34.5 32.3 - 35.7 g/dL [facility] RDW CV 16.1(H) 11.1 - 14.9 % [facility] RDW SD 49.4(H) 35.7 - 48.1 fL [facility] NRBC abs 0.03(H) 0.00 - 0.01 K/cumm [facility] Blood 01/29/2025 6:19 PM CDT 01/29/2025 6:32 PM CDT us Yes Mayelin Birmingham NP LAB BLOOD ORDERABLES Final Result Performing Organization Address City/[facility]/ZIP Co de Phone Number [facility] [place] [address] * Transfuse RBC (01/29/2025 5:56 PM CDT) Blood us Yesjeanmarie Birmingham NP BLOOD TRANSFUSION [place] [address] * Prepare platelets: 1 Units (01/29/2025 5:07 PM CDT) [facility] Product code [id number] Unit Number [id number] [facility] Product Blood Type APOS [facility] Dispense Status PRESUMED TRANSFUSED [facility] Blood Venous blood specimen / Unknown 01/29/2025 5:07 PM CDT 01/29/2025 5:07 PM CDT Narrative [facility] - 01/30/2025 8:00 AM CDT Are special requirements needed? (all products are leukoreduced)->No Date required:-[id number] PLT # of Units:-1-Units Reasons:-Prior to neurosurgery, plt < 100 K/cumm} us Yesh Mayelin Birmingham SURFACE SUPPLY BREATHING APPARATUS BLOOD BANK PRODUCT ORDERABL ES Final Result Performing Organization Address City/[facility]/ZIP Co de Phone Number [facility] Department [place] [address] * POCT glucose (01/29/2025 3:17 PM CDT) [facility] Glucose, POC 146 70 - 199 mg/dL Blood 01/29/2025 3:17 PM CDT 01/29/2025 3:17 PM CDT us Gerardo Melissa MD LAB POCT ORDERABLES - DEVICE Final Result Performing Organization Address City/[facility]/ZIP Co de Phone Number [facility] [place] [address] * Thromboelastometry Panel - Heparin (01/29/2025 1:46 PM CDT) [facility] HEPTEM-CT 196 141 - 215 sec HEPTEM-A5 36 33 - 51 mm [facility] HEPTEM-A10 46 44 - 61 mm [facility] HEPTEM-A20 53 52 - 67 mm [facility] HEPTEM-MCF 54 54 - 69 mm [facility] Blood 01/29/2025 1:46 PM CDT 01/29/2025 1:52 PM CDT us Yesh Mayelin Hammerfidel SURFACE SUPPLY BREATHING APPARATUS LAB BLOOD ORDERABLES Edited Result - Final KRISTIE MALCOL[facility] [place] [address] * (ABNORMAL) Thromboelastometry Panel - Intrinsic (01/29/2025 1:46 PM CDT) INTEM-CT 208(H) 139 - 205 sec INTEM-A5 38 36 - 54 mm [facility] INTEM-A10 48 46 - 63 mm [facility] INTEM-A20 54 53 - 68 mm [facility] INTEM-MCF 55 55 - 70 mm [facility] INTEM-LI60 94 93 - 100 % [facility] INTEM-ML 7 0 - 7 % [facility] Comment: Interpretive Data Rotational Thromboelastometry (MARY) Sigma is a type of viscoelastic testing (VET). MARY can rapidly assess hemostasis and guide blood product transfusion in cardiac surgery, liver transplantation, and other bleeding situations. It is not a replacement for conventional coagulation testing (such as PT INR, aPTT and fibrinogen). While anticoagulation medications can impact MARY results, MARY should not be used to monitor or manage anticoagulation. Standard VET is insensitive to the pharmacological effects of aspirin, thienopyridines, P2Y12 inhibitors and flow-dependent platelet function defects. Literature References 1. Jannet M, Brooklynn E. Sensitivity of Viscoelastic Tests to Platelet Function. J Clin Med. 2019May 11 9(3) 305. 2. Rome O, Kayce CM, Shaw N, Ángel EE, Ángel HB, Galina HC, Hamlet CAAL, Jayden Green MD, Kyrie SS, Ludwig Diaz, Josh MATHEW, Bev ML, Colby AV, Colby SG, Lucas L, Nicholas PerryZ, Agus M, Negrita P, Tru D, Esvin MM. Viscoelastic Hemostatic Assays A Primer on Legacy and New Generation Devices. J Clin Med. 2021Jun 08 11(5) 474. 3. MARY Operating Manual. Ingrid Holder MA. Elvin 13-15. D- [id number] [facility]. Blood 01/29/2025 1:46 PM CDT 01/29/2025 1:52 PM CDT us Yes Mayelin Birmingham NP LAB BLOOD ORDERABLES Edited Result - Final Performing Organization Address City/[facility] Co de Phone Number [facility] [place] [address] * Thromboelastometry Panel - Fibrinogen (01/29/2025 1:46 PM CDT) FIBTEM-A5 9 5 - 16 mm FIBTEM-A10 10 6 - 17 mm [facility] FIBTEM-A20 11 6 - 18 mm [facility] FIBTEM-MCF 12 9 - 19 mm [facility] Blood 01/29/2025 1:46 PM CDT 01/29/2025 1:52 PM CDT us Yes Mayelin Birmingham SURFACE SUPPLY BREATHING APPARATUS LAB BLOOD ORDERABLES Edited Result - Final Performing Organization Address [facility] Co de Phone Number [facility] Department [place] [address] * (ABNORMAL) Thromboelastometry Panel - Extrinsic (01/29/2025 1:46 PM CDT) EXTEM-CT 62 51 - 73 sec EXTEM-A5 37 33 - 52 mm [facility] EXTEM-A10 48 45 - 62 mm [facility] EXTEM-A20 54 54 - 69 mm [facility] EXTEM-MCF 55(L) 57 - 72 mm [facility] EXTEM-LI60 94 94 - 100 % [facility] EXTEM-ML 8(H) 0 - 6 % [facility] Blood 01/29/2025 1:46 PM CDT 01/29/2025 1:52 PM CDT us Yes Mayelin Birmingham NP LAB BLOOD ORDERABLES Edited Result - Final Performing Organization Address [facility] [place] [address] * Type and screen (01/29/2025 1:46 PM CDT) Pathologist [facility] ABO Rh B Positive Taiwo, indirect Negative [facility] Blood 01/29/2025 1:46 PM CDT 01/29/2025 1:57 PM CDT Narrative [facility] - 01/29/2025 3:32 PM CDT Has the patient had Daratumumab or Isatuximab in the past 6 months?->Unknown us Yes Mayelin Birmingham NP LAB BLOOD BANK TEST ORDERAB LES Final Result Performing Organization Address [facility] [place] [address] * Prepare RBC: 1 Units (01/29/2025 1:44 PM CDT) Pathologist [facility] Product code [id number] Unit Number [id number] [facility] Product Blood Type BPOS [facility] Dispense Status PRESUMED TRANSFUSED [facility] Blood 01/29/2025 1:44 PM CDT 01/29/2025 1:44 PM CDT Narrative [facility] - 01/30/2025 4:00 AM CDT Are special requirements needed? (All products are leukoreduced and CMV- safe)- >No Date required:-[id number] LRRBC # of [id number] Reasons:-Hgb <7 g/dL} us Yes Mayelin Birmingham NP BLOOD BANK PRODUCT ORDERABL ES Final Result Performing Organization Address [facility]/ZIP Co de Phone Number [facility] [place] [address] * Transfuse platelets (01/29/2025 1:41 PM CDT) Blood us Lucy Haas SURFACE SUPPLY BREATHING APPARATUS BLOOD TRANSFUSION ORDERABLES F inal Result Performing Organization Address [facility] Co de Phone Number [facility] [place] [address] * Calcium, ionized, whole blood (01/29/2025 12:50 PM CDT) Ca, ionized, bld 4.71 4.50 - 5.10 mg/dL Blood 01/29/2025 12:5 0 PM CDT 01/29/2025 12:58 PM CDT us Gerardo Melissa MD LAB BLOOD ORDERABLES Final Re sult Performing Organization Address [facility] Co de Phone Number [facility] [place] [address] * (ABNORMAL) Lactate, whole blood (01/29/2025 12:50 PM CDT) Lactate, bld 3.6(H) 0.7 - 2.0 mmol/L Blood 01/29/2025 12:5 0 PM CDT 01/29/2025 12:58 PM CDT us Kenny Birmingham SURFACE SUPPLY BREATHING APPARATUS LAB BLOOD ORDERABLES Final Result Performing Organization Address City/[facility]/ZIP Co de Phone Number [facility] [place], [place] [id number] * (ABNORMAL) CBC without differential (01/29/2025 12:50 PM CDT) WBC 8.61 3.80 - 9.90 K/cumm Hgb 6.9(L) 11.9 - 15.5 g/dL [facility] Hct 19.9(L) 35.6 - 45.5 % [facility] Plt 77(L) 150 - 400 K/cumm [facility] MPV 11.0 9.1 - 12.3 fL [facility] RBC 2.28(L) 3.90 - 5.20 M/cumm [facility] MCV 87.3 81.3 - 96.4 fL [facility] MCH 30.3 27.1 - 33.3 pg [facility] MCHC 34.7 32.3 - 35.7 g/dL [facility] RDW CV 14.6 11.1 - 14.9 % [facility] RDW SD 46.4 35.7 - 48.1 fL [facility] NRBC abs 0.03(H) 0.00 - 0.01 K/cumm [facility] Blood 01/29/2025 12:5 0 PM CDT 01/29/2025 1:13 PM CDT us Yesh Mayelin Birmingham NP LAB BLOOD ORDERABLES Final Result [facility] [place] [address] * (ABNORMAL) Blood gas, arterial (01/29/2025 12:50 PM CDT) pH, Art 7.40 7.35 - 7.45 PCO2, Arterial 31(L) 35 - 45 mmHg [facility] PO2, Arterial 145(H) 83 - 108 mmHg [facility] HCO3 Art (Calculated) 19(L) 20 - 30 mmol/L [facility] BE, art -5 mmol/L [facility] Comment: Interpretive Data No Reference Range Established Current Interpretive Data was last revised on 2017 O2 Sat Art (Measured) 100(H) 90 - 95 % [facility] Blood 01/29/2025 12:5 0 PM CDT 01/29/2025 12:58 PM CDT Lucy Haas SURFACE SUPPLY BREATHING APPARATUS LAB BLOOD [place] [address] * POCT glucose (01/29/2025 11:37 AM CDT) Glucose, POC 139 70 - 199 mg/dL Blood 01/29/2025 11:3 7 AM CDT 01/29/2025 11:37 AM CDT Gerardo Melissa MD LAB POCT ORDERABLES - DEVICE Final Result Performing Organization Address City/[facility]/[place] [address] * Transfuse cryoprecipitate (pooled units) (01/29/2025 10:51 AM CDT) Blood Lucy Haas SURFACE SUPPLY BREATHING APPARATUS BLOOD TRANSFUSION [place] [address] * POCT glucose (01/29/2025 9:26 AM CDT) Glucose, POC 141 70 - 199 mg/dL Blood 01/29/2025 9:26 AM CDT 01/29/2025 9:26 AM CDT Gerardo Melissa MD LAB POCT ORDERABLES - DEVICE Final Result Performing Organization Address City/[facility]/[place] [address] * Transfuse plasma Standard plasma (01/29/2025 9:10 AM CDT) Blood Lucy Haas SURFACE SUPPLY BREATHING APPARATUS BLOOD TRANSFUSION ORDERABLES F inal Result [facility] [place] [address] * Infection Prevention Jaylyn auris PCR, surveillance Axilla/Groin (01/29/2025 9:01 AM CDT) Jaylyn auris DNA Not Detected Not Detected [facility] Comment: Interpretive Data Testing performed by [facility] using the Frederick gus 6800 Jaylyn auris assay. This assay detects DNA from Jaylyn auris using Real-Time PCR. This assay is laboratory developed and is not cleared by the [employer] Food and Drug Administration. The performance characteristics have been verified by the [facility]. Axilla/Groin 01/29/2025 9:01 AM CDT 01/29/2025 9:45 AM CDT Narrative [facility] - 01/30/2025 3:30 AM CDT Order placed by [facility] due to ring surveillance. Instant Order Generic Provider LAB MICROBIOLOGY - GENERAL ORDERABLES Final Result Performing Organization Address [facility]/ZIP Co de Phone Number [facility] [place] [address] [facility] * POCT glucose (01/29/2025 8:23 AM CDT) Glucose, POC 128 70 - 199 mg/dL Blood 01/29/2025 8:23 AM CDT 01/29/2025 8:23 AM CDT Gerardo Melissa MD LAB POCT ORDERABLES - DEVICE Final Result Performing Organization Address City/[facility]/ZIP Co de Phone Number [facility] [place] [address] * Transfuse RBC (01/29/2025 7:36 AM CDT) Blood us Gerardo Melissa MD BLOOD TRANSFUSION ORDERABLES Final Result Performing Organization Address City/[facility] Co de Phone Number K[facility]STIE POPE [facility] [place] [address] * POCT glucose (01/29/2025 7:27 AM CDT) Glucose, POC 105 70 - 199 mg/dL Blood 01/29/2025 7:27 AM CDT 01/29/2025 7:27 AM CDT us Gerardo Melissa MD LAB POCT ORDERABLES - DEVICE Final Result Performing Organization Address [facility] Co de Phone Number [facility] [place] [address] * Critical Care (01/29/2025 7:03 AM CDT) Narrative Rima Gleason MD - 01/29/2025 7:03 AM CDT Rima Gleason MD 01/30/2025 10:56 AM Critical Care Performed by: Kenny Birmingham NP Authorized by: Kenny Birminghma NP CRITICAL CARE: Team: 83 CTICU Shift: AM Level of Billing: Critical Care My time spent with this patient was 90 minutes: Critical Provider Statement: I have seen and examined the patient on this day of service. I have reviewed and confirmed the history, physical exam, laboratory and radiologic data as documented in the signed ICU note. I have reviewed and discussed my treatment plan with the ICU team and other medical/oracle identity management consultant staff, making frequent assessments and decisions regarding this patient's complex medical care. Critical Care time was exclusive of time spent performing separately billed procedures, treating other patients, and teaching. This time was in addition to and separate from critical care provided by other practitioners in my group on this day of service. Critical Care was necessary to treat or prevent imminent or life-threatening deterioration of the following conditions: I spent time reviewing and interpreting data from bedside monitors, laboratory results, and imaging, I spent time discussing the management of this critically ill patient with consultants and the medical staff and I spent time documenting in the medical record us Yesh Mayelin Birmingham NP IN CLINIC/BEDSIDE ORDERABLE S Final Result * (ABNORMAL) eGFR (01/29/2025 5:46 AM CDT) eGFR 41(L) >=60 mL/min/1. 73 m2 Comment: Interpretive Data [...] interpretive data was last reviewed 2021. Blood 01/29/2025 5:46 AM CDT 01/29/2025 6:05 AM CDT Lucy Haas NP LAB BLOOD ORDERABLES Final Res ult [facility] [place] [address] * (ABNORMAL) Creatine kinase (CK), total (01/29/2025 5:46 AM CDT) CK 594(H) 30 - 200 Units/L Comment:Repeated and Verifie d Blood 01/29/2025 5:46 AM CDT 01/29/2025 6:05 AM CDT Lucy Cari Hill SURFACE SUPPLY BREATHING APPARATUS LAB BLOOD ORDERABLES Final Res ult [facility] [place] [address] * (ABNORMAL) Comprehensive metabolic panel (01/29/2025 5:46 AM CDT) Sodium 145 135 - 145 mmol/L Potassium, pl 4.9 3.3 - 4.9 mmol/L [facility] Chloride 113(H) 97 - 110 mmol/L [facility] CO2 20(L) 22 - 32 mmol/L [facility] Anion gap 12 2 - 15 mmol/L [facility] BUN 22 6 - 25 mg/dL [facility] Creatinine 1.41(H) 0.60 - 1.10 mg/dL [facility] Glucose 114 70 - 199 mg/dL [facility] Comment: Interpretive Data Fasting glucose >/= 126 [...] interpretive data was last revised 2022. Calcium 8.2(L) 8.5 - 10.3 mg/dL [facility] Bilirubin, total 0.2 0.1 - 1.2 mg/dL [facility] Protein, pl 4.8(L) 6.5 - 8.5 g/dL [facility] Albumin 3.7 3.5 - 5.0 g/dL [facility] Alk phos 26(L) 40 - 130 Units/L [facility] ALT 147(H) 7 - 45 Units/L [facility] AST 274(H) 10 - 45 Units/L [facility] Blood 01/29/2025 5:46 AM CDT 01/29/2025 6:05 AM CDT us Lucy Alcala [place] SURFACE SUPPLY BREATHING APPARATUS LAB BLOOD ORDERABLES Final Res ult Performing Organization Address [facility] [place] [address] * Prepare cryoprecipitate (pooled units): 1 Units (01/29/2025 5:29 AM CDT) Product code [id number] Unit Number [id number] [facility] Product Blood Type OPOS [facility] Dispense Status PRESUMED TRANSFUSED [facility] Blood Venous blood specimen / Unknown 01/29/2025 5:29 AM CDT 01/29/2025 5:29 AM CDT Narrative [facility] - 01/30/2025 12:56 AM CDT Cryo # of [id number] Reasons:-Dysfibrinogenemia WITH bleeding} [facility] SURFACE SUPPLY BREATHING APPARATUS BLOOD BANK PRODUCT ORDERABLES Final Result Performing Organization Address [facility] [place] [address] * Prepare platelets: 1 Units (01/29/2025 5:28 AM CDT) Product code [id number] Unit Number [id number] [facility] Product Blood Type BPOS [facility] Dispense Status PRESUMED TRANSFUSED [facility] Blood Venous blood specimen / Unknown 01/29/2025 5:28 AM CDT 01/29/2025 5:29 AM CDT Narrative [facility] - 01/30/2025 12:56 AM CDT Are special requirements needed? (all products are leukoreduced)->No Date required:-[id number] PLT # of Units:-1-Units Reasons:-Major active bleeding} [facility] SURFACE SUPPLY BREATHING APPARATUS BLOOD BANK PRODUCT ORDERABLES Final Result Performing Organization Address City/[facility] Co de Phone Number [facility] [place] [address] * Prepare plasma: 1 Units Standard plasma (01/29/2025 5:27 AM CDT) [facility] Product code [id number] Unit Number [id number] [facility] Product Blood Type BPOS [facility] Dispense Status PRESUMED TRANSFUSED [facility] Blood Venous blood specimen / Unknown 01/29/2025 5:27 AM CDT 01/29/2025 5:29 AM CDT Narrative [facility] - 01/29/2025 8:01 PM CDT Is this plasma order intended for a COVID-19 patient as convalescent plasma?->Standard plasma Special Requirements Needed?->No Date required:-[id number] FFP # of Units:-1-Units Reasons:-According to clinical research protocol} Lucy Haas SURFACE SUPPLY BREATHING APPARATUS BLOOD BANK PRODUCT ORDERABLES Final Result Performing Organization Address City/[facility]/ZIP Co de Phone Number [facility] [place] [address] * (ABNORMAL) Thromboelastometry Panel - Heparin (01/29/2025 4:56 AM CDT) [facility] HEPTEM-CT 212 141 - 215 sec HEPTEM-A5 25(L) 33 - 51 mm [facility] HEPTEM-A10 35(L) 44 - 61 mm [facility] HEPTEM-A20 42(L) 52 - 67 mm [facility] HEPTEM-MCF 45(L) 54 - 69 mm [facility] Blood 01/29/2025 4:56 AM CDT 01/29/2025 6:20 AM CDT Gerardo Melissa MD LAB BLOOD ORDERABLES Edited R esult - Final [facility] [place] [address] * (ABNORMAL) Thromboelastometry Panel - Intrinsic (01/29/2025 4:56 AM CDT) INTEM-CT 228(H) 139 - 205 sec INTEM-A5 26(L) 36 - 54 mm [facility] INTEM-A10 36(L) 46 - 63 mm [facility] INTEM-A20 43(L) 53 - 68 mm [facility] INTEM-MCF 45(L) 55 - 70 mm [facility] INTEM-LI60 96 93 - 100 % [facility] INTEM-ML 4 0 - 7 % [facility] Comment: Interpretive Data Rotational Thromboelastometry (MARY) Sigma is a type of viscoelastic testing (VET). MARY can rapidly assess hemostasis and guide blood product transfusion in cardiac surgery, liver transplantation, and other bleeding situations. It is not a replacement for conventional coagulation testing (such as PT INR, aPTT and fibrinogen). While anticoagulation medications can impact MARY results, MARY should not be used to monitor or manage anticoagulation. Standard VET is insensitive to the pharmacological effects of aspirin, thienopyridines, P2Y12 inhibitors and flow-dependent platelet function defects. Literature References 1. Jannet M, Brooklynn E. Sensitivity of Viscoelastic Tests to Platelet Function. J Clin Med. 2019 10 9(7) 968. 2. Rome O, Kayce CM, Shaw N, Ángel EE, Ángel HB, Galina HC, Hamlet CAAL, Jayden Green MD, Kyrie SS, Ludwig G, Josh HD, Bev ML, Oclby AV, Colby SG, Lucas L, Nicholas HINDS, Agus M, Negrita P, Tru D, Esvin MM. Viscoelastic Hemostatic Assays A Primer on Legacy and New Generation Devices. J Clin Med. 2021Jun 08 11(3) 922. 3. MARY Operating Manual. Ingrid Holder MA. Elvin 13-15. D- [id number] [facility]. Blood 01/29/2025 4:56 AM CDT 01/29/2025 6:20 AM CDT us Gerardo Melissa MD LAB BLOOD ORDERABLES Edited [facility] Performing Organization Address City/[facility]/ZIP Co de Phone Number [facility] [place] [address] * (ABNORMAL) Thromboelastometry Panel - Fibrinogen (01/29/2025 4:56 AM CDT) FIBTEM-A5 4(L) 5 - 16 mm FIBTEM-A10 4(L) 6 - 17 mm [facility] FIBTEM-A20 5(L) 6 - 18 mm [facility] FIBTEM-MCF 5(L) 9 - 19 mm [facility] Blood 01/29/2025 4:56 AM CDT 01/29/2025 6:20 AM CDT us Gerardo Melissa MD LAB BLOOD ORDERABLES Edited [facility] Performing Organization Address [facility] Co de Phone Number [facility] [place] [address] * (ABNORMAL) Thromboelastometry Panel - Extrinsic (01/29/2025 4:56 AM CDT) EXTEM-CT 70 51 - 73 sec EXTEM-A5 27(L) 33 - 52 mm [facility] EXTEM-A10 36(L) 45 - 62 mm [facility] EXTEM-A20 44(L) 54 - 69 mm [facility] EXTEM-MCF 47(L) 57 - 72 mm [facility] EXTEM-LI60 96 94 - 100 % [facility] EXTEM-ML 5 0 - 6 % [facility] Blood 01/29/2025 4:56 AM CDT 01/29/2025 6:20 AM CDT us Gerardo Melissa MD LAB BLOOD ORDERABLES Edited R esult - Final Performing Organization Address [facility] Co de Phone Number [facility] Department [place] [address] * Prepare RBC: 1 Units (01/29/2025 4:55 AM CDT) [facility] Product code [id number] Unit Number [id number] [facility] Product Blood Type BPOS [facility] Dispense Status PRESUMED TRANSFUSED [facility] Blood 01/29/2025 4:55 AM CDT 01/29/2025 4:54 AM CDT Narrative [facility] - 01/29/2025 8:01 PM CDT Are special requirements needed? (All products are leukoreduced and CMV- safe)- >No Date required:-[id number] LRRBC # of [id number] Reasons:-Cardiovascular disease, Hgb <8 g/dL} Gerardo Melissa MD BLOOD BANK PRODUCT ORDERABLES Final Result Performing Organization Address [facility] Co de Phone Number [facility] Department [place] [address] * (ABNORMAL) POC Blood Gas and Chemistries, Arterial - (01/29/2025 4:19 AM CDT) [facility] pH, Art POC 7.33(L) 7.35 - 7.45 pCO2, Art POC 32(L) 35 - 45 mmHg [facility] pO2, Art POC 118(H) 83 - 108 mmHg [facility] Na, POC 141 135 - 145 mmol/L [facility] K POC 4.6 3.3 - 4.9 mmol/L [facility] Comment: Interpretive Data Not all point of care methods assess for hemolysis. Confirm with instrument and retest K+ if not consistent with clinical signs and symptoms. Current Interpretive Data was last revised on 2023. Cl, POC 115(H) 97 - 110 mmol/L [facility] Ionized Ca, POC 4.75 4.50 - 5.10 mg/dL [facility] Glucose, POC 104 70 - 199 mg/dL [facility] Lactate POC 4.0(C) 0.7 - 2.0 mmol/L [facility] SO2 (eb) arterial 100(H) 90 - 95 % [facility] Base excess, POC -8.2 mmol/L [facility] HCO3, Art POC 17(L) 20 - 30 mmol/L [facility] Hct, POC 23.0(L) 36.3 - 45.3 % [facility] Total Hb, POC 7.8(L) 11.9 - 15.5 g/dL [facility] Blood 01/29/2025 4:19 AM CDT 01/29/2025 4:19 AM CDT us Gerardo Melissa MD LAB POCT ORDERABLES - DEVICE Final Result [facility] [place] [address] * (ABNORMAL) POC Blood Gas and Chemistries, Arterial - (01/29/2025 2:56 AM CDT) pH, Art POC 7.37 7.35 - 7.45 pCO2, Art POC 32(L) 35 - 45 mmHg [facility] pO2, Art POC 126(H) 83 - 108 mmHg [facility] Na, POC 143 135 - 145 mmol/L [facility] K POC 4.4 3.3 - 4.9 mmol/L [facility] Comment: Interpretive Data Not all point of care methods assess for hemolysis. Confirm with instrument and retest K+ if not consistent with clinical signs and symptoms. Current Interpretive Data was last revised on 2023. Cl, POC 115(H) 97 - 110 mmol/L [facility] Ionized Ca, POC 4.94 4.50 - 5.10 mg/dL [facility] Glucose, POC 76 70 - 199 mg/dL [facility] Lactate POC 3.2(H) 0.7 - 2.0 mmol/L [facility] SO2 (eb) arterial 100(H) 90 - 95 % [facility] Base excess, POC -6.1 mmol/L [facility] HCO3, Art POC 18(L) 20 - 30 mmol/L [facility] Hct, POC 23.0(L) 36.3 - 45.3 % [facility] Total Hb, POC 7.6(L) 11.9 - 15.5 g/dL [facility] Blood 01/29/2025 2:56 AM CDT 01/29/2025 2:56 AM CDT Gerardo Melissa MD LAB POCT ORDERABLES - DEVICE Final Result [facility] [place] [address] * (ABNORMAL) POC Blood Gas and Chemistries, Arterial - (01/29/2025 1:41 AM CDT) pH, Art POC 7.33(L) 7.35 - 7.45 pCO2, Art POC 34(L) 35 - 45 mmHg [facility] pO2, Art POC 133(H) 83 - 108 mmHg [facility] Na, POC 141 135 - 145 mmol/L [facility] K POC 4.6 3.3 - 4.9 mmol/L [facility] Comment: Interpretive Data Not all point of care methods assess for hemolysis. Confirm with instrument and retest K+ if not consistent with clinical signs and symptoms. Current Interpretive Data was last revised on 2023. Cl, POC 114(H) 97 - 110 mmol/L [facility] Ionized Ca, POC 4.94 4.50 - 5.10 mg/dL [facility] Glucose, POC 104 70 - 199 mg/dL [facility] Lactate POC 4.3(C) 0.7 - 2.0 mmol/L [facility] SO2 (eb) arterial 100(H) 90 - 95 % [facility] Base excess, POC -7.3 mmol/L [facility] HCO3, Art POC 18(L) 20 - 30 mmol/L [facility] Hct, POC 25.0(L) 36.3 - 45.3 % [facility] Total Hb, POC 8.4(L) 11.9 - 15.5 g/dL [facility] Blood 01/29/2025 1:41 AM CDT 01/29/2025 1:41 AM CDT us Gerardo Melissa MD LAB POCT ORDERABLES - DEVICE Final Result [facility] [place] [address] * (ABNORMAL) POC Blood Gas and Chemistries, Arterial - (01/29/2025 12:05 AM CDT) pH, Art POC 7.32(L) 7.35 - 7.45 pCO2, Art POC 33(L) 35 - 45 mmHg [facility] pO2, Art POC 118(H) 83 - 108 mmHg [facility] Na, POC 140 135 - 145 mmol/L [facility] K POC 4.6 3.3 - 4.9 mmol/L [facility] Comment: Interpretive Data Not all point of care methods assess for hemolysis. Confirm with instrument and retest K+ if not consistent with clinical signs and symptoms. Current Interpretive Data was last revised on 2023. Cl, POC 114(H) 97 - 110 mmol/L [facility] Ionized Ca, POC 4.67 4.50 - 5.10 mg/dL [facility] Glucose, POC 138 70 - 199 mg/dL [facility] Lactate POC 4.4(C) 0.7 - 2.0 mmol/L [facility] SO2 (eb) arterial 100(H) 90 - 95 % [facility] Base excess, POC -8.2 mmol/L [facility] HCO3, Art POC 17(L) 20 - 30 mmol/L [facility] Hct, POC 29.0(L) 36.3 - 45.3 % [facility] Total Hb, POC 9.5(L) 11.9 - 15.5 g/dL [facility] Blood 01/29/2025 12:0 5 AM CDT 01/29/2025 12:05 AM CDT us Gerardo Melissa MD LAB POCT ORDERABLES - DEVICE Final Result Performing Organization Address [facility] Co de Phone Number [facility] [place] [address] * POCT glucose (01/29/2025 12:01 AM CDT) Pathologist [facility] Glucose, POC 145 70 - 199 mg/dL Blood 01/29/2025 12:0 1 AM CDT 01/29/2025 12:01 AM CDT us Gerardo Melissa MD LAB POCT ORDERABLES - DEVICE Final Result Performing Organization Address [facility] Co de Phone Number [facility] [place] [address] * Potassium, whole blood (01/28/2025 11:57 PM CDT) [facility] Potassium, bld 4.5 3.3 - 4.9 mmol/L Blood 01/28/2025 11:5 7 PM CDT 01/29/2025 12:16 AM CDT us Gerardo Melissa MD LAB BLOOD ORDERABLES Final Re sult Performing Organization Address [facility] Co de Phone Number [facility] [place] [address] * (ABNORMAL) eGFR (01/28/2025 11:57 PM CDT) [facility] eGFR 48(L) >=60 mL/min/1. 73 m2 Comment: Interpretive Data [...] interpretive data was last reviewed 2021. Blood 01/28/2025 11:5 7 PM CDT 01/29/2025 12:20 AM CDT us Kenny Birmingham [employer] LAB BLOOD ORDERABLES Final Result Performing Organization Address City/[facility]/ZIP Co de Phone Number [facility] Department [place] [address] * Critical Result Callback Chemistry (01/28/2025 11:57 PM CDT) Date Notified 20250129 Time Notified 27 [facility] TestName Lactate Whole Blood [facility] Called/Read Back Aida [facility] Credentials RN [facility] Called By FELIX [facility] Blood 01/28/2025 11:5 7 PM CDT 01/29/2025 12:16 AM CDT us eGrardo Melissa MD LAB BLOOD ORDERABLES Final Re sult Performing Organization Address City/[facility]/ZIP Co de Phone Number [facility] Department [place] [address] * (ABNORMAL) Calcium, ionized (01/28/2025 11:57 PM CDT) Calcium, Ionized 4.26(L) 4.50 - 5.10 mg/dL Blood 01/28/2025 11:5 7 PM CDT 01/29/2025 12:18 AM CDT us Lucy Haas [employer] LAB BLOOD ORDERABLES Final Res ult Performing Organization Address City/[facility]/ZIP Co de Phone Number [facility] [employer] [place], [place] [id number] * (ABNORMAL) Lactate, whole blood (01/28/2025 11:57 PM CDT) Lactate, bld 4.6(C) 0.7 - 2.0 mmol/L Blood 01/28/2025 11:5 7 PM CDT 01/29/2025 12:16 AM CDT Gerardo Melissa MD LAB BLOOD ORDERABLES Final Re sult Performing Organization Address [facility] Co de Phone Number [facility] [place] [address] * (ABNORMAL) Protime-INR (01/28/2025 11:57 PM CDT) PT 15.3(H) 10.2 - 13.5 sec INR 1.36(H) 0.90 - 1.20 [facility] Comment: Interpretive data Oral anticoagulant therapeutic ranges: Venous thromboembolism prophylaxis or treatment: 2.0-3.0 CARDIOLOGY Standard range: 2.0-3.0 High-intensity range: 2.5-3.5 Refer to indication-specific guidelines for appropriate target ranges for prosthetic heart valve replacement. Current interpretive data was last revised on 2019. Blood 01/28/2025 11:5 7 PM CDT 01/29/2025 12:28 AM CDT Lucy Haas [employer] LAB BLOOD ORDERABLES Final Res ult Performing Organization Address [facility] Co de Phone Number [facility] [place] [place] [id number] * (ABNORMAL) CBC without differential (01/28/2025 11:57 PM CDT) WBC 12.15(H) 3.80 - 9.90 K/cumm Hgb 9.2(L) 11.9 - 15.5 g/dL [facility] Hct 26.3(L) 35.6 - 45.5 % [facility] Plt 76(L) 150 - 400 K/cumm [facility] MPV 11.2 9.1 - 12.3 fL [facility] RBC 2.96(L) 3.90 - 5.20 M/cumm [facility] MCV 88.9 81.3 - 96.4 fL [facility] MCH 31.1 27.1 - 33.3 pg [facility] MCHC 35.0 32.3 - 35.7 g/dL [facility] RDW CV 14.7 11.1 - 14.9 % [facility] RDW SD 47.9 35.7 - 48.1 fL [facility] NRBC abs 0.02(H) 0.00 - 0.01 K/cumm [facility] Blood 01/28/2025 11:5 7 PM CDT 01/29/2025 12:20 AM CDT us Yes Mayelin Birmingham [employer] LAB BLOOD ORDERABLES Final Result Performing Organization Address City/[facility]/ZIP Co de Phone Number [facility] [place] [address] * Phosphorus (01/28/2025 11:57 PM CDT) [facility] Phosphorus, pl 4.1 2.3 - 4.5 mg/dL Blood 01/28/2025 11:5 7 PM CDT 01/29/2025 12:20 AM CDT [facility] Mayelin Birmingham [employer]FACE [employer] LAB BLOOD ORDERABLES Final Result Performing Organization Address City/[facility]/ZIP Co de Phone Number [facility] [place] [address] * (ABNORMAL) Magnesium (01/28/2025 11:57 PM CDT) [facility] Magnesium 2.8(H) 1.4 - 2.5 mg/dL Comment:Repeated and Verifie d Blood 01/28/2025 11:5 7 PM CDT 01/29/2025 12:20 AM CDT Kenny Hammerfidel [employer]FACE [employer] LAB BLOOD ORDERABLES Final Result Performing Organization Address [facility] de Phone Number [facility] [place] [address] * (ABNORMAL) Blood gas, arterial (01/28/2025 11:57 PM CDT) [facility] pH, Art 7.32(L) 7.35 - 7.45 PCO2, Arterial 35 35 - 45 mmHg [facility] PO2, Arterial 159(H) 83 - 108 mmHg [facility] HCO3 Art (Calculated) 17(L) 20 - 30 mmol/L [facility] BE, art -8 mmol/L [facility] Comment: Interpretive Data No Reference Range Established Current Interpretive Data was last revised on 2017 O2 Sat Art (Measured) 99(H) 90 - 95 % [facility] Blood 01/28/2025 11:5 7 PM CDT 01/29/2025 12:16 AM CDT us Lucy Haas [employer] LAB BLOOD ORDERABLES Final Res ult Performing Organization Address [facility] de Phone Number [facility] [place] [address] * (ABNORMAL) Basic metabolic panel (01/28/2025 11:57 PM CDT) [facility] Sodium 143 135 - 145 mmol/L Potassium, pl 4.6 3.3 - 4.9 mmol/L [facility] Chloride 113(H) 97 - 110 mmol/L [facility] CO2 19(L) 22 - 32 mmol/L [facility] Anion gap 11 2 - 15 mmol/L [facility] BUN 18 6 - 25 mg/dL [facility] Creatinine 1.22(H) 0.60 - 1.10 mg/dL [facility] Glucose 132 70 - 199 mg/dL [facility] Comment: Interpretive Data Fasting glucose >/= 126 [...] interpretive data was last revised 2022. Calcium 8.0(L) 8.5 - 10.3 mg/dL [facility] Blood 01/28/2025 11:5 7 PM CDT 01/29/2025 12:20 AM CDT us Kenny Birmingham [employer] LAB BLOOD ORDERABLES Final Result [facility] [place] [address] * POCT glucose (01/28/2025 11:09 PM CDT) Glucose, POC 145 70 - 199 mg/dL Blood 01/28/2025 11:0 9 PM CDT 01/28/2025 11:09 PM CDT us Gerardo Melissa MD LAB POCT ORDERABLES - DEVICE Final Result [facility] [place] [address] * (ABNORMAL) POCT glucose (01/28/2025 10:29 PM CDT) Glucose, POC 205(H) 70 - 199 mg/dL Blood 01/28/2025 10:2 9 PM CDT 01/28/2025 10:29 PM CDT Gerardo Melissa MD LAB POCT ORDERABLES - DEVICE Final Result [facility] [place] [address] * XR Abdomen 1 View AP (01/28/2025 10:22 PM CDT) Anatomical Region Laterality Modality Body, Abdomen N/A Digital Radiogra phy 01/29/2025 11:0 0 AM CDT Impressions 01/29/2025 11:11 AM CDT Median sternotomy wires noted, one of which is fractured. Surgical clips project over the right upper quadrant. Small amount of residual contrast is seen in the bilateral kidneys. Gastric tube side port projects over the body of the stomach, the tip projects over the fundus. Dictated by: Sadie Lau M.D. The radiology attending physician has personally reviewed this study, and had reviewed and/or edited this written report and agrees with it. Electronically signed by: Jeovany Devi M.D. Narrative 01/29/2025 11:11 AM CDT EXAMINATION: Abdomen, one view. HISTORY: Check tube placement. COMPARISON: CT 01/28/2025 Procedure Note Jeovany Devi MD - 01/29/2025 EXAMINATION: Abdomen, one view. HISTORY: Check tube placement. COMPARISON: CT 01/28/2025 IMPRESSION: Median sternotomy wires noted, one of which is fractured. Surgical clips project over the right upper quadrant. Small amount of residual contrast is seen in the bilateral kidneys. Gastric tube side port projects over the body of the stomach, the tip projects over the fundus. Dictated by: Sadie Lau M.D. The radiology attending physician has personally reviewed this study, and had reviewed and/or edited this written report and agrees with it. Electronically signed by: Jeovany Devi M.D. Lucy Haas SURFACE [employer] IMG XR PROCEDURES Final Result * (ABNORMAL) POC Blood Gas and Chemistries, Arterial - (01/28/2025 9:45 PM CDT) pH, Art POC 7.34(L) 7.35 - 7.45 pCO2, Art POC 37 35 - 45 mmHg [facility] pO2, Art POC 136(H) 83 - 108 mmHg [facility] Na, POC 141 135 - 145 mmol/L [facility] K POC 4.6 3.3 - 4.9 mmol/L [facility] Comment: Interpretive Data Not all point of care methods assess for hemolysis. Confirm with instrument and retest K+ if not consistent with clinical signs and symptoms. Current Interpretive Data was last revised on 2023. Cl, POC 115(H) 97 - 110 mmol/L [facility] Ionized Ca, POC 4.73 4.50 - 5.10 mg/dL [facility] Glucose, POC 69(L) 70 - 199 mg/dL [facility] Lactate POC 2.7(H) 0.7 - 2.0 mmol/L [facility] SO2 (eb) arterial 100(H) 90 - 95 % [facility] Base excess, POC -5.3 mmol/L [facility] HCO3, Art POC 20 20 - 30 mmol/L [facility] Hct, POC 27.0(L) 36.3 - 45.3 % [facility] Total Hb, POC 9.0(L) 11.9 - 15.5 g/dL [facility] Blood 01/28/2025 9:45 PM CDT 01/28/2025 9:45 PM CDT us Gerardo Melissa MD LAB POCT ORDERABLES - DEVICE Final Result [facility] Department [place] [address] * CTA Chest Abdominal Aorta and Bilateral Iliofemoral (01/28/2025 9:04 PM CDT) Anatomical Region Laterality Modality Body N/A Computed Tomogra phy 01/28/2025 9:50 PM CDT Impressions 01/29/2025 4:32 PM CDT 1. 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 2. No large vessel occlusion. Moderate to severe atherosclerotic narrowing of the bilateral lower extremities as described above, with two vessel run-off below the ankles bilaterally. 3. Postsurgical changes of redo sternotomy with postsurgical unorganized chest wall fluid and gas, trace left pneumothorax, pneumomediastinum, and small bilateral pleural effusions. ADDENDUM - This addendum is being placed on the report for a time dependent finding on a patient who is admitted to the hospital (2b). In addition to above, there is a 1.5 cm left renal pelvis lesion which may represent a small hematoma or urothelial neoplasm, recommend further evaluation with CT urogram. Just above the most superior sternotomy wire, within the midline presternal soft tissues there is a focus of curvilinear hyperattenuation adjacent to the right carotid artery bypass, which could reflect post-surgical material vs active bleeding. Consider correlation with a non-contrast chest CT. Small left splenic infarct and possible small bilateral renal infarcts (series 4 image 266). These findings were communicated to Kenny Birmingham NP by Sven Monsno MD at 01/29/2025 6:30 AM. Dictated by: Sven Monson MD The radiology attending physician has personally reviewed this study, and had reviewed and/or edited this written report and agrees with it. Electronically signed by: Antonio Ross M.D. Narrative 01/29/2025 4:32 PM CDT EXAMINATION: CT ANGIOGRAPHY OF CHEST, ABDOMEN, PELVIS, AND LOWER EXTREMITIES WITH CONTRAST HISTORY: 69-year-old female with recent redo sternotomy, aorta to right subclavian and right carotid artery bypass, right carotid endarterectomy with a cold leg TECHNIQUE: CT angiography of the chest, abdomen, pelvis, and lower extremities was performed following the intravenous administration of 115 ml [id number]. Vascular 3D images were generated on a dedicated workstation and also reviewed. COMPARISON: CT 10/26/2024. FINDINGS: VASCULAR FINDINGS: No aortic dissection, pulmonary embolism or acute aortic syndrome. Postsurgical changes of redo sternotomy, ascending aorta to right subclavian and right common carotid artery bypass with a patent graft. 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 There is unchanged reconstitution of the [place] right subclavian artery which is patent to the distal graft anastomosis. Narrowing of the innominate vein. There is moderate atherosclerotic narrowing of the origin of the left common carotid artery. Mild multifocal narrowing of the left subclavian artery. Normal caliber thoracic aorta with mild atherosclerotic calcifications. Abdominal Aorta and Branches: Celiac axis: Severe narrowing at the origin, patent. SMA: Severe narrowing at the origin, patent. SONNY: no significant stenosis Right renal vessels: no significant stenosis Left renal vessels: no significant stenosis Infrarenal aorta: Mild multifocal disease atherosclerotic calcifications. Pelvic Vessels: R. Common iliac artery: Mild to moderate multifocal atherosclerotic narrowing. R. External iliac artery: Multifocal diffuse atherosclerotic narrowing with severe focal narrowing along the midportion (series 4 image 500). R. Internal iliac artery: Moderately to severely narrowed at its origin, patent, with multifocal atherosclerotic calcifications. L. Common iliac artery: Mild multifocal atherosclerotic narrowing. L. External iliac artery: Mild to moderate multifocal narrowing. L. Internal iliac artery: Severe narrowing at its origin with moderate diffuse multifocal narrowing. Right Lower Extremity: R. Common femoral artery: Mild to moderate multifocal narrowing. R. Profunda femoris artery: no significant stenosis R. Superficial femoral artery: Mild multifocal narrowing. R. Popliteal artery: Mild multifocal narrowing. R. Anterior tibial artery: Moderate multifocal narrowing, patent below the ankle. R. Tibioperoneal trunk: no significant stenosis R. Posterior tibial artery: no significant stenosis R. Peroneal artery: Thready opacification, not well seen. R. Dorsalis pedis artery: Not well opacified. R. Plantar artery: no significant stenosis Left Lower Extremity: L. Common femoral artery: Mild multifocal narrowing. L. Profunda femoris artery: Severely narrowed at its origin. L. Superficial femoral artery: no significant stenosis L. Popliteal artery: Moderate multifocal narrowing proximally L. Anterior tibial artery: Mild narrowing of its origin with moderate multifocal atherosclerotic calcifications. L. Tibioperoneal trunk: Mild multifocal narrowing. L. Posterior tibial artery: Moderate multifocal atherosclerotic narrowing. L. Peroneal artery: Thready opacification, not well seen below the ankle. L. Dorsalis pedis artery: no significant stenosis L. Plantar artery: no significant stenosis NON-VASCULAR FINDINGS: Postsurgical fluid and gas is seen within the presternal soft tissues with trace postoperative pneumomediastinum and a trace left pneumothorax. A pericardial drain and bilateral thoracostomy tubes are in place. The heart is normal size without pericardial effusion. A coronary stent is in place within the left anterior descending artery. An endotracheal tube terminates within the mid thoracic trachea. Gastric tube terminates within the stomach. Small bilateral pleural effusions with associated atelectasis. No pneumothorax. No focal liver lesion. Area of low attenuation in the caudate, likely focal fat. No biliary ductal dilatation. The main portal, superior mesenteric and splenic veins are patent. The spleen, adrenal glands, and pancreas are normal. The gallbladder surgically absent. Bilateral renal cysts with a punctate nonobstructing 8 mm right renal calculus. Urinary bladder is decompressed by Chavez catheter. Uterus is either atrophic or surgically absent. No free fluid or pneumoperitoneum. The bowel is normal caliber without evidence of obstruction. No focal bowel wall thickening. The appendix is not visualized and may be surgically absent. No abdominal or pelvic lymphadenopathy. No suspicious osseous lesion. Scattered right breast calcifications. Procedure Note Antonio Ross MD - 01/29/2025 EXAMINATION: CT ANGIOGRAPHY OF CHEST, ABDOMEN, PELVIS, AND LOWER EXTREMITIES WITH CONTRAST HISTORY: 69-year-old female with recent redo sternotomy, aorta to right subclavian and right carotid artery bypass, right carotid endarterectomy with a cold leg TECHNIQUE: CT angiography of the chest, abdomen, pelvis, and lower extremities was performed following the intravenous administration of 115 ml [id number]. Vascular 3D images were generated on a dedicated workstation and also reviewed. COMPARISON: CT 10/26/2024. FINDINGS: VASCULAR FINDINGS: No aortic dissection, pulmonary embolism or acute aortic syndrome. Postsurgical changes of redo sternotomy, ascending aorta to right subclavian and right common carotid artery bypass with a patent graft. 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 There is unchanged reconstitution of the [place] right subclavian artery which is patent to the distal graft anastomosis. Narrowing of the innominate vein. There is moderate atherosclerotic narrowing of the origin of the left common carotid artery. Mild multifocal narrowing of the left subclavian artery. Normal caliber thoracic aorta with mild atherosclerotic calcifications. Abdominal Aorta and Branches: Celiac axis: Severe narrowing at the origin, patent. SMA: Severe narrowing at the origin, patent. SONNY: no significant stenosis Right renal vessels: no significant stenosis Left renal vessels: no significant stenosis Infrarenal aorta: Mild multifocal disease atherosclerotic calcifications. Pelvic Vessels: R. Common iliac artery: Mild to moderate multifocal atherosclerotic narrowing. R. External iliac artery: Multifocal diffuse atherosclerotic narrowing with severe focal narrowing along the midportion (series 4 image 500). R. Internal iliac artery: Moderately to severely narrowed at its origin, patent, with multifocal atherosclerotic calcifications. L. Common iliac artery: Mild multifocal atherosclerotic narrowing. L. External iliac artery: Mild to moderate multifocal narrowing. L. Internal iliac artery: Severe narrowing at its origin with moderate diffuse multifocal narrowing. Right Lower Extremity: R. Common femoral artery: Mild to moderate multifocal narrowing. R. Profunda femoris artery: no significant stenosis R. Superficial femoral artery: Mild multifocal narrowing. R. Popliteal artery: Mild multifocal narrowing. R. Anterior tibial artery: Moderate multifocal narrowing, patent below the ankle. R. Tibioperoneal trunk: no significant stenosis R. Posterior tibial artery: no significant stenosis R. Peroneal artery: Thready opacification, not well seen. R. Dorsalis pedis artery: Not well opacified. R. Plantar artery: no significant stenosis Left Lower Extremity: L. Common femoral artery: Mild multifocal narrowing. L. Profunda femoris artery: Severely narrowed at its origin. L. Superficial femoral artery: no significant stenosis L. Popliteal artery: Moderate multifocal narrowing proximally L. Anterior tibial artery: Mild narrowing of its origin with moderate multifocal atherosclerotic calcifications. L. Tibioperoneal trunk: Mild multifocal narrowing. L. Posterior tibial artery: Moderate multifocal atherosclerotic narrowing. L. Peroneal artery: Thready opacification, not well seen below the ankle. L. Dorsalis pedis artery: no significant stenosis L. Plantar artery: no significant stenosis NON-VASCULAR FINDINGS: Postsurgical fluid and gas is seen within the presternal soft tissues with trace postoperative pneumomediastinum and a trace left pneumothorax. A pericardial drain and bilateral thoracostomy tubes are in place. The heart is normal size without pericardial effusion. A coronary stent is in place within the left anterior descending artery. An endotracheal tube terminates within the mid thoracic trachea. Gastric tube terminates within the stomach. Small bilateral pleural effusions with associated atelectasis. No pneumothorax. No focal liver lesion. Area of low attenuation in the caudate, likely focal fat. No biliary ductal dilatation. The main portal, superior mesenteric and splenic veins are patent. The spleen, adrenal glands, and pancreas are normal. The gallbladder surgically absent. Bilateral renal cysts with a punctate nonobstructing 8 mm right renal calculus. Urinary bladder is decompressed by Chavez catheter. Uterus is either atrophic or surgically absent. No free fluid or pneumoperitoneum. The bowel is normal caliber without evidence of obstruction. No focal bowel wall thickening. The appendix is not visualized and may be surgically absent. No abdominal or pelvic lymphadenopathy. No suspicious osseous lesion. Scattered right breast calcifications. IMPRESSION: 1. 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 2. No large vessel occlusion. Moderate to severe atherosclerotic narrowing of the bilateral lower extremities as described above, with two vessel run-off below the ankles bilaterally. 3. Postsurgical changes of redo sternotomy with postsurgical unorganized chest wall fluid and gas, trace left pneumothorax, pneumomediastinum, and small bilateral pleural effusions. ADDENDUM - This addendum is being placed on the report for a time dependent finding on a patient who is admitted to the hospital (2b). In addition to above, there is a 1.5 cm left renal pelvis lesion which may represent a small hematoma or urothelial neoplasm, recommend further evaluation with CT urogram. Just above the most superior sternotomy wire, within the midline presternal soft tissues there is a focus of curvilinear hyperattenuation adjacent to the right carotid artery bypass, which could reflect post-surgical material vs active bleeding. Consider correlation with a non-contrast chest CT. Small left splenic infarct and possible small bilateral renal infarcts (series 4 image 266). These findings were communicated to Kenny Birmingham NP by Sven Monson MD at 01/29/2025 6:30 AM. Dictated by: Sven Monson MD The radiology attending physician has personally reviewed this study, and had reviewed and/or edited this written report and agrees with it. Electronically signed by: Antonio Ross M.D. us Gerardo Melissa MD IMG CT PROCEDURES Final Resul t * (ABNORMAL) POC Blood Gas and Chemistries, Arterial - (01/28/2025 7:41 PM CDT) pH, Art POC 7.22(L) 7.35 - 7.45 pCO2, Art POC 48(H) 35 - 45 mmHg [facility] pO2, Art POC 131(H) 83 - 108 mmHg [facility] Na, POC 143 135 - 145 mmol/L [facility] K POC 4.8 3.3 - 4.9 mmol/L [facility] Comment: Interpretive Data Not all point of care methods assess for hemolysis. Confirm with instrument and retest K+ if not consistent with clinical signs and symptoms. Current Interpretive Data was last revised on 2023. Cl, POC 117(H) 97 - 110 mmol/L [facility] Ionized Ca, POC 4.60 4.50 - 5.10 mg/dL [facility] Glucose, POC 118 70 - 199 mg/dL [facility] Lactate POC 3.6(H) 0.7 - 2.0 mmol/L [facility] SO2 (eb) arterial 100(H) 90 - 95 % [facility] Base excess, POC -7.8 mmol/L [facility] HCO3, Art POC 20 20 - 30 mmol/L [facility] Hct, POC 29.0(L) 36.3 - 45.3 % [facility] Total Hb, POC 9.6(L) 11.9 - 15.5 g/dL [facility] Blood 01/28/2025 7:41 PM CDT 01/28/2025 7:41 PM CDT us Gerardo Melissa MD LAB POCT ORDERABLES - DEVICE Final Result [facility] [place] [address] * Transfuse plasma Standard plasma (01/28/2025 7:07 PM CDT) Blood us Yesh Mayelin Birmingham NP BLOOD TRANSFUSION ORDERABLE S Final Result [facility] [place] [address] * Critical Care (01/28/2025 7:05 PM CDT) Narrative Rima Gleason MD - 01/28/2025 7:05 PM CDT Rima Gleason MD 01/29/2025 12:12 PM Critical Care Performed by: Lucy Haas NP Authorized by: Lucy Haas NP CRITICAL CARE: Team: 83 CTICU Shift: PM Level of Billing: Critical Care My time spent with this patient was 240 minutes: Critical Provider Statement: I have seen and examined the patient on this day of service. I have reviewed and confirmed the history, physical exam, laboratory and radiologic data as documented in the signed ICU note. I have reviewed and discussed my treatment plan with the ICU team and other medical/oracle identity management consultant staff, making frequent assessments and decisions regarding this patient's complex medical care. Critical Care time was exclusive of time spent performing separately billed procedures, treating other patients, and teaching. This time was in addition to and separate from critical care provided by other practitioners in my group on this day of service. Critical Care was necessary to treat or prevent imminent or life-threatening deterioration of the following conditions: I spent time reviewing and interpreting data from bedside monitors, laboratory results, and imaging, I spent time discussing the management of this critically ill patient with consultants and the medical staff and I spent time documenting in the medical record us Lucy Haas NP IN CLINIC/BEDSIDE ORDERABLES F inal Result * POCT glucose (01/28/2025 7:02 PM CDT) Glucose, POC 159 70 - 199 mg/dL Blood 01/28/2025 7:02 PM CDT 01/28/2025 7:02 PM CDT us Gerardo Melissa MD LAB POCT ORDERABLES - DEVICE Final Result Performing Organization Address [facility]/ZIP Co de Phone Number [facility] [place] [address] * (ABNORMAL) Potassium, whole blood (01/28/2025 6:38 PM CDT) Potassium, bld 5.0(H) 3.3 - 4.9 mmol/L Blood 01/28/2025 6:38 PM CDT 01/28/2025 6:53 PM CDT Yes Mayelin Birmingham NP LAB BLOOD ORDERABLES Final Result Performing Organization Address [facility] Co de Phone Number [facility] [place] [address] * Critical Result Callback Chemistry (01/28/2025 6:38 PM CDT) Date Notified [id number] Time Notified 1900 KRISTIE POPE TestName Lactate Whole Blood KRISTIE POPE Called/Read Back Jyoti [facility] Credentials RN [facility] Called By LYNSEY POPE Blood 01/28/2025 6:38 PM CDT 01/28/2025 6:53 PM CDT us Yes Mayelin Birmingham NP LAB BLOOD ORDERABLES Final Result Performing Organization Address [facility]/ZIP Co de Phone Number [facility] [place] [address] * (ABNORMAL) Lactate, whole blood (01/28/2025 6:38 PM CDT) Lactate, bld 6.4(C) 0.7 - 2.0 mmol/L Blood 01/28/2025 6:38 PM CDT 01/28/2025 6:53 PM CDT us Yes Mayelin Birmingham SURFACE [employer]PPLY BREATHING [employer]PAR[employer] LAB BLOOD ORDERABLES Final Result [facility] Department [place] [address] * Creatine kinase (CK), total (01/28/2025 6:38 PM CDT) Pathologist [facility] CK 159 30 - 200 Units/L Blood 01/28/2025 6:38 PM CDT 01/28/2025 6:55 PM CDT us Yes Mayelin Birmingham SURFACE [employer] BREATH[employer] LAB BLOOD ORDERABLES Final Result Performing Organization Address [facility] Co de Phone Number [facility] [place] [address] * (ABNORMAL) POC Blood Gas and Chemistries, Arterial - (01/28/2025 6:26 PM CDT) Pathologist [facility] pH, Art POC 7.19(C) 7.35 - 7.45 pCO2, Art POC 45 35 - 45 mmHg [facility] pO2, Art POC 128(H) 83 - 108 mmHg [facility] Na, POC 142 135 - 145 mmol/L [facility] K POC 5.3(H) 3.3 - 4.9 mmol/L [facility] Comment: Interpretive Data Not all point of care methods assess for hemolysis. Confirm with instrument and retest K+ if not consistent with clinical signs and symptoms. Current Interpretive Data was last revised on 2023. Cl, POC 116(H) 97 - 110 mmol/L [facility] Ionized Ca, POC 4.60 4.50 - 5.10 mg/dL [facility] Glucose, POC 193 70 - 199 mg/dL [facility] Lactate POC 6.1(C) 0.7 - 2.0 mmol/L [facility] SO2 (eb) arterial 100(H) 90 - 95 % [facility] Base excess, POC -10.6 mmol/L [facility] HCO3, Art POC 17(L) 20 - 30 mmol/L [facility] Hct, POC 32.0(L) 36.3 - 45.3 % [facility] Total Hb, POC 10.6(L) 11.9 - 15.5 g/dL [facility] Blood 01/28/2025 6:26 PM CDT 01/28/2025 6:26 PM CDT Gerardo Melissa MD LAB POCT ORDERABLES - DEVICE Final Result [facility] [place] [address] * XR Chest 1 View - in PM (01/28/2025 6:15 PM CDT) Anatomical Region Laterality Modality Body, Chest N/A Computed Radiogr aphy 01/29/2025 11:3 4 AM CDT Impressions 01/29/2025 8:48 PM CDT The current study is compared with the prior radiograph dated 03/13/2018 at 7:58 AM, CT 10/26/2024. Interval placement of a endotracheal tube with the tip projecting 3.5 cm above the yue. Interval placement of new median sternotomy wires, one of which appears to be fractured, unchanged since 2018. A coronary artery stent is seen. Interval placement of bilateral chest tubes and mediastinal drain. Surgical clips overlie the right lung apex. The heart size is normal and unchanged. Small left pleural effusion. No right pleural effusion. No pneumothorax. Mild bibasilar atelectasis. Dictated by: Bennett Cummings M.D. The radiology attending physician has personally reviewed this study, and had reviewed and/or edited this written report and agrees with it. Electronically signed by: Willie Alfaro M.D. Narrative 01/29/2025 8:48 PM CDT EXAMINATION: 1 view chest radiograph Procedure Note Willie Alfaro MD PhD - 01/29/2025 EXAMINATION: 1 view chest radiograph IMPRESSION: The current study is compared with the prior radiograph dated 03/13/2018 at 7:58 AM, CT 10/26/2024. Interval placement of a endotracheal tube with the tip projecting 3.5 cm above the yue. Interval placement of new median sternotomy wires, one of which appears to be fractured, unchanged since 2018. A coronary artery stent is seen. Interval placement of bilateral chest tubes and mediastinal drain. Surgical clips overlie the right lung apex. The heart size is normal and unchanged. Small left pleural effusion. No right pleural effusion. No pneumothorax. Mild bibasilar atelectasis. Dictated by: Bennett Cummings M.D. The radiology attending physician has personally reviewed this study, and had reviewed and/or edited this written report and agrees with it. Electronically signed by: Willie Alfaro M.D. us Kenny Birmingham SURFACE SUPPLY BREATHING APPARATUS IMG XR PROCEDURES Final Res ult * POCT glucose (01/28/2025 6:14 PM CDT) Pathologist [facility] [place] Glucose, POC 198 70 - 199 mg/dL Blood 01/28/2025 6:14 PM CDT 01/28/2025 6:14 PM CDT us Gerardo Melissa MD LAB POCT ORDERABLES - DEVICE Final Result [facility] Department [place] [address] * eGFR (01/28/2025 5:57 PM CDT) Pathologist [facility] [place] eGFR 64 >=60 mL/min/1. 73 m2 Comment: Interpretive Data [...] interpretive data was last reviewed 2021. Blood 01/28/2025 5:57 PM CDT 01/28/2025 6:14 PM CDT Londonh Mayelin Birmingham NP LAB BLOOD ORDERABLES Final Result Performing Organization Address [facility] de Phone Number [facility] [place] [employer] [place] [address] * (ABNORMAL) aPTT (01/28/2025 5:57 PM CDT) aPTT 47(H) 26 - 38 sec Comment: Interpretive Data Heparin therapeutic range: 66.0 - 100.0 seconds. Range based on correlation with therapeutic heparin activity range of 0.3 - 0.7 Units/mL. Current interpretive data was last revised on 2023. Blood 01/28/2025 5:57 PM CDT 01/28/2025 6:14 PM CDT us Gerardo Melissa MD LAB BLOOD ORDERABLES Final Re sult Performing Organization Address [facility] de Phone Number [facility] [place] [place] [address] * (ABNORMAL) Protime-INR (01/28/2025 5:57 PM CDT) PT 19.1(H) 10.2 - 13.5 sec INR 1.71(H) 0.90 - 1.20 [facility] Comment: Interpretive data Oral anticoagulant therapeutic ranges: Venous thromboembolism prophylaxis or treatment: 2.0-3.0 CARDIOLOGY Standard range: 2.0-3.0 High-intensity range: 2.5-3.5 Refer to indication-specific guidelines for appropriate target ranges for prosthetic heart valve replacement. Current interpretive data was last revised on 2019. Blood 01/28/2025 5:57 PM CDT 01/28/2025 6:14 PM CDT us Yesh Mayelin Birmingham SURFACE SUPPLY BREATHING [employer]PAR[employer] LAB BLOOD ORDERABLES Final Result Performing Organization Address City/[facility]/ZIP Co de Phone Number [facility] Department [place] [address] * (ABNORMAL) CBC without differential (01/28/2025 5:57 PM CDT) WBC 8.09 3.80 - 9.90 K/cumm Hgb 11.0(L) 11.9 - 15.5 g/dL [facility] Hct 32.8(L) 35.6 - 45.5 % [facility] Plt 76(L) 150 - 400 K/cumm [facility] MPV 10.9 9.1 - 12.3 fL [facility] RBC 3.63(L) 3.90 - 5.20 M/cumm [facility] MCV 90.4 81.3 - 96.4 fL [facility] MCH 30.3 27.1 - 33.3 pg [facility] MCHC 33.5 32.3 - 35.7 g/dL [facility] RDW CV 13.9 11.1 - 14.9 % [facility] RDW SD 46.0 35.7 - 48.1 fL [facility] NRBC abs 0.02(H) 0.00 - 0.01 K/cumm [facility] Blood 01/28/2025 5:57 PM CDT 01/28/2025 6:14 PM CDT us Yesh Mayelin Birmingham SURFACE [employer] BREATHING [employer] LAB BLOOD ORDERABLES Final Result [facility] [place] [address] * Type and screen (01/28/2025 5:57 PM CDT) Pathologist [facility] [place] Taiwo, indirect Negative ABO Rh B Positive [facility] Blood 01/28/2025 5:57 PM CDT 01/28/2025 6:14 PM CDT Narrative [facility] - 01/28/2025 7:28 PM CDT Has the patient had Daratumumab or Isatuximab in the past 6 months?->Unknown us Karla Trevino [employer]FACE [employer] BREATHING [employer] LAB BLOOD BANK TEST ORDERABLE S Final Result [facility] [place] [address] * (ABNORMAL) Phosphorus (01/28/2025 5:57 PM CDT) [facility] Phosphorus, pl 5.7(H) 2.3 - 4.5 mg/dL Blood 01/28/2025 5:57 PM CDT 01/28/2025 6:14 PM CDT Yes Mayelin Birmingham SURFACE SUPPLY BREATHING [employer]PAR[employer]US LAB BLOOD ORDERABLES Final Result Performing Organization Address City/[facility]/ZIP Co de Phone Number [facility] Department [place] [address] * (ABNORMAL) Magnesium (01/28/2025 5:57 PM CDT) [facility] Magnesium 1.3(L) 1.4 - 2.5 mg/dL Blood 01/28/2025 5:57 PM CDT 01/28/2025 6:14 PM CDT Yes Mayelin Birmingham SURFACE SUPPL[employer] BREATHING [employer]PAR[employer] LAB BLOOD ORDERABLES Final Result Performing Organization Address City/[facility]/ZIP Co de Phone Number [facility] Department [place] [address] * (ABNORMAL) Basic metabolic panel (01/28/2025 5:57 PM CDT) Sodium 147(H) 135 - 145 mmol/L Potassium, pl 4.6 3.3 - 4.9 mmol/L [facility] Chloride 117(H) 97 - 110 mmol/L [facility] Comment:Repeated and Verifie d CO2 22 22 - 32 mmol/L [facility] Anion gap 8 2 - 15 mmol/L [facility] BUN 15 6 - 25 mg/dL [facility] Creatinine 0.97 0.60 - 1.10 mg/dL [facility] Glucose 180 70 - 199 mg/dL [facility] Comment: Interpretive Data Fasting glucose >/= 126 [...] interpretive data was last revised 2022. Calcium 8.0(L) 8.5 - 10.3 mg/dL [facility] Blood 01/28/2025 5:57 PM CDT 01/28/2025 6:14 PM CDT us Yesh Mayelin Birmingham SURFACE SUPPLY BREATHING APPARATUS LAB BLOOD ORDERABLES Final Result [facility] [place] [address] * Prepare plasma: 1 Units Standard plasma (01/28/2025 5:18 PM CDT) Pathologist [facility] [place] Product code [id number] Unit Number [id number] [facility] Product Blood Type BPOS [facility] Dispense Status PRESUMED TRANSFUSED [facility] Blood Venous blood specimen / Unknown 01/28/2025 5:18 PM CDT 01/28/2025 5:18 PM CDT Narrative [facility] - 01/29/2025 6:00 AM CDT Is this plasma order intended for a COVID-19 patient as convalescent plasma?->Standard plasma Special Requirements Needed?->No Date required:-[id number] FFP # of Units:-1-Units Reasons:-Active major bleeding with coagulopathy} us Yesh Mayelin [place] SURFACE SUPPLY BREATHING APPARATUS BLOOD BANK PRODUCT ORDERABL ES Final Result [facility] [place] [address] * (ABNORMAL) POC Blood Gas and Chemistries, Arterial - (01/28/2025 5:07 PM CDT) pH, Art POC 7.31(L) 7.35 - 7.45 pCO2, Art POC 40 35 - 45 mmHg [facility] pO2, Art POC 447(H) 83 - 108 mmHg [facility] Na, POC 141 135 - 145 mmol/L [facility] K POC 4.6 3.3 - 4.9 mmol/L [facility] Comment: Interpretive Data Not all point of care methods assess for hemolysis. Confirm with instrument and retest K+ if not consistent with clinical signs and symptoms. Current Interpretive Data was last revised on 2023. Cl, POC 116(H) 97 - 110 mmol/L [facility] Ionized Ca, POC 4.82 4.50 - 5.10 mg/dL [facility] Glucose, POC 187 70 - 199 mg/dL [facility] Lactate POC 3.1(H) 0.7 - 2.0 mmol/L [facility] SO2 (eb) arterial 100(H) 90 - 95 % [facility] Base excess, POC -5.8 mmol/L [facility] HCO3, Art POC 20 20 - 30 mmol/L [facility] Hct, POC 35.0(L) 36.3 - 45.3 % [facility] Total Hb, POC 11.6(L) 11.9 - 15.5 g/dL [facility] Blood 01/28/2025 5:07 PM CDT 01/28/2025 5:07 PM CDT Gerardo Melissa MD LAB POCT ORDERABLES - DEVICE Final Result [facility] Department [place] [address] * (ABNORMAL) POC Blood Gas and Chemistries, Arterial - (01/28/2025 4:32 PM CDT) pH, Art POC 7.23(L) 7.35 - 7.45 pCO2, Art POC 49(H) 35 - 45 mmHg [facility] pO2, Art POC 359(H) 83 - 108 mmHg [facility] Na, POC 143 135 - 145 mmol/L [facility] K POC 5.6(H) 3.3 - 4.9 mmol/L [facility] Comment: Interpretive Data Not all point of care methods assess for hemolysis. Confirm with instrument and retest K+ if not consistent with clinical signs and symptoms. Current Interpretive Data was last revised on 2023. Cl, POC 116(H) 97 - 110 mmol/L [facility] Ionized Ca, POC 4.30(L) 4.50 - 5.10 mg/dL [facility] Glucose, POC 273(H) 70 - 199 mg/dL [facility] Lactate POC 5.8(C) 0.7 - 2.0 mmol/L [facility] SO2 (eb) arterial 100(H) 90 - 95 % [facility] Base excess, POC -6.8 mmol/L [facility] HCO3, Art POC 20 20 - 30 mmol/L [facility] Hct, POC 28.0(L) 36.3 - 45.3 % [facility] Total Hb, POC 9.3(L) 11.9 - 15.5 g/dL [facility] Blood 01/28/2025 4:32 PM CDT 01/28/2025 4:32 PM CDT us Gerardo Melissa MD LAB POCT ORDERABLES - DEVICE Final Result [facility] [place] [address] * Transfuse RBC (01/28/2025 4:01 PM CDT) Blood us Gian Carroll MD BLOOD TRANSFUSION ORDERABL ES Final Result Performing Organization Address [facility] Co de Phone Number [facility] Department [place] [address] * (ABNORMAL) POC Blood Gas and Chemistries, Arterial - (01/28/2025 3:53 PM CDT) pH, Art POC 7.18(C) 7.35 - 7.45 pCO2, Art POC 43 35 - 45 mmHg [facility] pO2, Art POC 375(H) 83 - 108 mmHg [facility] Na, POC 140 135 - 145 mmol/L [facility] K POC 6.0(H) 3.3 - 4.9 mmol/L [facility] Comment: Interpretive Data Not all point of care methods assess for hemolysis. Confirm with instrument and retest K+ if not consistent with clinical signs and symptoms. Current Interpretive Data was last revised on 2023. Cl, POC 117(H) 97 - 110 mmol/L [facility] Ionized Ca, POC 4.75 4.50 - 5.10 mg/dL [facility] Glucose, POC 280(H) 70 - 199 mg/dL [facility] Lactate POC 6.0(C) 0.7 - 2.0 mmol/L [facility] SO2 (eb) arterial 100(H) 90 - 95 % [facility] Base excess, POC -11.5 mmol/L [facility] HCO3, Art POC 16(L) 20 - 30 mmol/L [facility] Hct, POC 23.0(L) 36.3 - 45.3 % [facility] Total Hb, POC 7.8(L) 11.9 - 15.5 g/dL [facility] Blood 01/28/2025 3:53 PM CDT 01/28/2025 3:53 PM CDT Gerardo Melissa MD LAB POCT ORDERABLES - DEVICE Final Result Performing Organization Address [facility] de Phone Number [facility] [place] [address] * Transfuse plasma (01/28/2025 3:18 PM CDT) Blood Gian Carroll MD BLOOD TRANSFUSION ORDERABL ES Final Result Performing Organization Address [facility] de Phone Number [facility] [place] [address] * Prepare plasma: 1 Units (01/28/2025 3:02 PM CDT) Pathologist [facility] [place] Product code [id number] Unit Number [id number] [facility] Product Blood Type BPOS [facility] Dispense Status PRESUMED TRANSFUSED [facility] Blood Venous blood specimen / Unknown 01/28/2025 3:02 PM CDT 01/28/2025 3:01 PM CDT Narrative [facility] - 01/29/2025 4:01 AM CDT Date required:-[id number] FFP # of Units:-1-Units Reasons:-Immediate need for surgical intervention Gian Carroll MD BLOOD BANK PRODUCT ORDERAB LES Final Result Performing Organization Address [facility] de Phone Number [facility] [place] [address] * (ABNORMAL) POC Blood Gas and Chemistries, Arterial - (01/28/2025 2:47 PM CDT) pH, Art POC 7.10(C) 7.35 - 7.45 pCO2, Art POC 44 35 - 45 mmHg [facility] pO2, Art POC 394(H) 83 - 108 mmHg [facility] Na, POC 137 135 - 145 mmol/L [facility] K POC 5.2(H) 3.3 - 4.9 mmol/L [facility] Comment: Interpretive Data Not all point of care methods assess for hemolysis. Confirm with instrument and retest K+ if not consistent with clinical signs and symptoms. Current Interpretive Data was last revised on 2023. Cl, POC 114(H) 97 - 110 mmol/L [facility] Ionized Ca, POC 4.53 4.50 - 5.10 mg/dL [facility] Glucose, POC 212(H) 70 - 199 mg/dL [facility] Lactate POC 4.2(C) 0.7 - 2.0 mmol/L [facility] SO2 (eb) arterial 100(H) 90 - 95 % [facility] Base excess, POC -15.2 mmol/L [facility] HCO3, Art POC 13(L) 20 - 30 mmol/L [facility] Hct, POC 29.0(L) 36.3 - 45.3 % [facility] Total Hb, POC 9.5(L) 11.9 - 15.5 g/dL [facility] Blood 01/28/2025 2:47 PM CDT 01/28/2025 2:47 PM CDT us Gerardo Melissa MD LAB POCT ORDERABLES - DEVICE Final Result Performing Organization Address City/[facility]/ZIP Co de Phone Number [facility] Department [place] [address] * (ABNORMAL) POCT prothrombin time (01/28/2025 2:46 PM CDT) PT, POC 25.2(H) 11.7 - 16.6 sec INR, POC 1.9(H) 0.9 - 1.2 [facility] Blood 01/28/2025 2:46 PM CDT 01/28/2025 2:46 PM CDT us Gerardo Melissa MD LAB POCT ORDERABLES - DEVICE Final Result [facility] [place] [address] * (ABNORMAL) POCT Partial thromboplastin time (PTT) (01/28/2025 2:46 PM CDT) [facility] APTT, POC 51.1(H) 32.5 - 46.1 sec Blood 01/28/2025 2:46 PM CDT 01/28/2025 2:46 PM CDT us Gerardo Melissa MD LAB POCT ORDERABLES - DEVICE Final Result Performing Organization Address City/[facility]/ZIP Co de Phone Number [facility] [place] [address] * POCT Activated clotting time, low range (01/28/2025 2:45 PM CDT) [facility] ACT 168 123 - 168 sec POC Device Number [id number] [facility] Blood 01/28/2025 2:45 PM CDT 01/28/2025 2:45 PM CDT us Gerardo Melissa MD LAB POCT ORDERABLES - DEVICE Final Result Performing Organization Address [facility]/ZIP Co de Phone Number [facility] [place] [address] * (ABNORMAL) POCT hemoglobin, hematocrit and platelet count (01/28/2025 2:44 PM CDT) [facility] Hgb, POC 9.1(L) 11.9 - 15.5 g/dL Hematocrit POC 27.9(L) 35.6 - 45.5 % [facility] Platelet POC 134(L) 150 - 400 K/cumm [facility] Blood 01/28/2025 2:44 PM CDT 01/28/2025 2:44 PM CDT us Gerardo Melissa MD LAB POCT ORDERABLES - DEVICE Final Result Performing Organization Address [facility] Co de Phone Number [facility] [place] [address] * POCT Activated clotting time, low range (01/28/2025 2:41 PM CDT) ACT 166 123 - 168 sec POC Device Number [id number] [facility] Blood 01/28/2025 2:41 PM CDT 01/28/2025 2:41 PM CDT us Gerardo Melissa MD LAB POCT ORDERABLES - DEVICE Final Result Performing Organization Address [facility] [place] [address] * POCT Activated clotting time, low range (01/28/2025 2:29 PM CDT) ACT 153 123 - 168 sec POC Device Number [id number] [facility] Blood 01/28/2025 2:29 PM CDT 01/28/2025 2:29 PM CDT us Gerardo Melissa MD LAB POCT ORDERABLES - DEVICE Final Result Performing Organization Address [facility] Co de Phone Number [facility] [place] [address] * Transfuse RBC (01/28/2025 2:17 PM CDT) Blood us Gian Carroll MD BLOOD TRANSFUSION ORDERABL ES Final Result Performing Organization Address [facility]/ZIP Co de Phone Number [facility] [place] [address] * (ABNORMAL) POCT Activated clotting time, low range (01/28/2025 2:05 PM CDT) ACT 314(H) 123 - 168 sec POC Device Number [id number] [facility] Blood 01/28/2025 2:05 PM CDT 01/28/2025 2:05 PM CDT us Gerardo Melissa MD LAB POCT ORDERABLES - DEVICE Final Result Performing Organization Address City/[facility]/ZIP Co de Phone Number [facility] Department [place] [address] * Transfuse RBC (01/28/2025 1:59 PM CDT) Blood us Gian Carroll MD BLOOD TRANSFUSION ORDERABL ES Final Result Performing Organization Address [facility] Co de Phone Number [facility] [place] [address] * (ABNORMAL) POC Blood Gas and Chemistries, Arterial - (01/28/2025 1:47 PM CDT) [facility] pH, Art POC 7.22(L) 7.35 - 7.45 pCO2, Art POC 43 35 - 45 mmHg [facility] pO2, Art POC 421(H) 83 - 108 mmHg [facility] Na, POC 140 135 - 145 mmol/L [facility] K POC 4.5 3.3 - 4.9 mmol/L [facility] Comment: Interpretive Data Not all point of care methods assess for hemolysis. Confirm with instrument and retest K+ if not consistent with clinical signs and symptoms. Current Interpretive Data was last revised on 2023. Cl, POC 113(H) 97 - 110 mmol/L [facility] Ionized Ca, POC 4.74 4.50 - 5.10 mg/dL [facility] Glucose, POC 168 70 - 199 mg/dL [facility] Lactate POC 2.3(H) 0.7 - 2.0 mmol/L [facility] SO2 (eb) arterial 100(H) 90 - 95 % [facility] Base excess, POC -9.5 mmol/L [facility] HCO3, Art POC 18(L) 20 - 30 mmol/L [facility] Hct, POC 27.0(L) 36.3 - 45.3 % [facility] Total Hb, POC 9.0(L) 11.9 - 15.5 g/dL [facility] Blood 01/28/2025 1:47 PM CDT 01/28/2025 1:47 PM CDT us Gerardo Melissa MD LAB POCT ORDERABLES - DEVICE Final Result Performing Organization Address [facility] Co de Phone Number [facility] [place] [address] * (ABNORMAL) POCT prothrombin time (01/28/2025 1:46 PM CDT) PT, POC >80.0(H) 11.7 - 16.6 sec INR, POC >10.0(C) 0.9 - 1.2 [facility] Blood 01/28/2025 1:46 PM CDT 01/28/2025 1:46 PM CDT us Gerardo Melissa MD LAB POCT ORDERABLES - DEVICE Final Result Performing Organization Address [facility] Co de Phone Number [facility] [place] [address] * (ABNORMAL) POCT Partial thromboplastin time (PTT) (01/28/2025 1:46 PM CDT) APTT, POC >400.0(C) 32.5 - 46.1 sec Blood 01/28/2025 1:46 PM CDT 01/28/2025 1:46 PM CDT us Gerardo Melissa MD LAB POCT ORDERABLES - DEVICE Final Result Performing Organization Address [facility] Co de Phone Number [facility] [place] [address] * (ABNORMAL) POCT Activated clotting time, low range (01/28/2025 1:39 PM CDT) ACT 363(H) 123 - 168 sec POC Device Number [id number] [facility] Blood 01/28/2025 1:39 PM CDT 01/28/2025 1:39 PM CDT us Gerardo Melissa MD LAB POCT ORDERABLES - DEVICE Final Result Performing Organization Address [facility] Co de Phone Number [facility] [place] [address] * (ABNORMAL) POCT Activated clotting time, low range (01/28/2025 1:29 PM CDT) ACT 234(H) 123 - 168 sec POC Device Number [id number] [facility] Blood 01/28/2025 1:29 PM CDT 01/28/2025 1:29 PM CDT us Gerardo Melissa MD LAB POCT ORDERABLES - DEVICE Final Result Performing Organization Address [facility] Co de Phone Number [facility] [place] [address] * (ABNORMAL) POC Blood Gas and Chemistries, Arterial - (01/28/2025 12:59 PM CDT) [facility] pH, Art POC 7.32(L) 7.35 - 7.45 pCO2, Art POC 38 35 - 45 mmHg [facility] pO2, Art POC 197(H) 83 - 108 mmHg [facility] Na, POC 140 135 - 145 mmol/L [facility] K POC 4.5 3.3 - 4.9 mmol/L [facility] Comment: Interpretive Data Not all point of care methods assess for hemolysis. Confirm with instrument and retest K+ if not consistent with clinical signs and symptoms. Current Interpretive Data was last revised on 2023. Cl, POC 115(H) 97 - 110 mmol/L [facility] Ionized Ca, POC 4.91 4.50 - 5.10 mg/dL [facility] Glucose, POC 151 70 - 199 mg/dL [facility] Lactate POC 1.8 0.7 - 2.0 mmol/L [facility] SO2 (eb) arterial 100(H) 90 - 95 % [facility] Base excess, POC -6.0 mmol/L [facility] HCO3, Art POC 20 20 - 30 mmol/L [facility] Hct, POC 29.0(L) 36.3 - 45.3 % [facility] Total Hb, POC 9.5(L) 11.9 - 15.5 g/dL [facility] Blood 01/28/2025 12:5 9 PM CDT 01/28/2025 12:59 PM CDT us Gerardo Melissa MD LAB POCT ORDERABLES - DEVICE Final Result Performing Organization Address City/[facility]/ZIP Co de Phone Number [facility] [place] [address] * (ABNORMAL) POCT Activated clotting time, low range (01/28/2025 12:53 PM CDT) ACT 305(H) 123 - 168 sec POC Device Number [id number] [facility] Blood 01/28/2025 12:5 3 PM CDT 01/28/2025 12:53 PM CDT us Gerardo Melissa MD LAB POCT ORDERABLES - DEVICE Final Result [facility] [place] [address] * (ABNORMAL) POCT Activated clotting time, low range (01/28/2025 12:27 PM CDT) ACT 302(H) 123 - 168 sec POC Device Number [id number] [facility] Blood 01/28/2025 12:2 7 PM CDT 01/28/2025 12:27 PM CDT us Gerardo Melissa MD LAB POCT ORDERABLES - DEVICE Final Result Performing Organization Address [facility] de Phone Number [facility] [place] [address] * (ABNORMAL) POCT Activated clotting time, low range (01/28/2025 12:12 PM CDT) ACT 279(H) 123 - 168 sec POC Device Number [id number] [facility] Blood 01/28/2025 12:1 2 PM CDT 01/28/2025 12:12 PM CDT us Gerardo Melissa MD LAB POCT ORDERABLES - DEVICE Final Result Performing Organization Address [facility] de Phone Number [facility] [place] [address] * (ABNORMAL) POCT Activated clotting time, low range (01/28/2025 11:34 AM CDT) ACT 310(H) 123 - 168 sec POC Device Number [id number] [facility] Blood 01/28/2025 11:3 4 AM CDT 01/28/2025 11:34 AM CDT us Gerardo Melissa MD LAB POCT ORDERABLES - DEVICE Final Result Performing Organization Address [facility] [place] [address] * AK AN PROCEDURE PLACEHOLDER (01/28/2025 10:44 AM CDT) Anatomical Region Laterality Modality Other Narrative 01/28/2025 10:44 AM CDT Gian Carroll MD 01/28/2025 10:47 AM DES Date/time: 01/28/2025 10:44 AM Staff: Performed by: Anesthesiologist: Gian Carroll MD Preprocedure checklist: patient identified, procedure contraindications assessed, procedure consent, risks, benefits and alternatives discussed, monitors and equipment checked, timeout performed and DES probe inserted into esophagus using lubricating jelly General procedure Information: Reason for procedure/indications: assessment of ascending aorta, assessment of surgical repair, hemodynamic instability and hemodynamic monitoring Performed: personally Procedure performed at surgeon's request: yes Results discussed with surgeon: yes Images submitted to archive: yes Patient location: OR Intubated: yes Bite blocked placed: yes Probe Insertion: easy Complications: no Probe type: adult Modalities: 2D imaging, continuous wave Doppler, pulsed wave Doppler and color Doppler Billing information: Physician requesting echo: Maximiliano Dunbar MD CPT code: DES placement and diagnostic exam, non-congenital (81385) ICD code(s) for medical necessity: I70.0 - Atherosclerosis of aorta Echocardiographic and doppler measurements: Ventricles: Left ventricle: Cavity size: normal Hypertrophy: Yes Thrombus: No Global function: normal LVEF%: 50-60 Right ventricle: Cavity size: normal Hypertrophy: no Thrombus: No Global function: normal RVEF%: normal Interventricular septum: normal Regional function: 1- Basal anteroseptal: normal 2- Basal anterior: normal 3- Basal anterolateral: normal 4- Basal inferolateral: normal 5- Basal inferior: normal 6- Basal inferoseptal: normal 7- Mid anteroseptal: normal 8- Mid anterior: normal 9- Mid anterolateral: normal 10- Mid inferolateral: normal 11- Mid inferior: normal 12- Mid inferoseptal: normal 13- Apical anterior: normal 14- Apical lateral: normal 15- Apical inferior: normal 16- Apical septal: normal 17- [place]: normal Valves: Aortic Valve: Annulus: normal Leaflet morphology: normal Leaflet motion: normal Stenosis: none Regurgitation: trace Mitral valve: Annulus: normal Leaflet morphology anterior: normal Leaflet morphology posterior: normal Leaflet motion anterior: normal Leaflet motion posterior: normal Stenosis: none Regurgitation: none Tricuspid valve: Annulus: normal Leaflet morphology: normal Leaflet motion: normal Stenosis: none Regurgitation: trace Pulmonic valve: Annulus: normal Stenosis: none Regurgitation: absent Aorta: Ascending aorta: Size: normal Dissection: no Plaque thickness(mm): >3 Plaque mobile: no Aortic arch: Size: normal Dissection: no Plaque thickness(mm): >3 Plaque mobile: no Descending aorta: Size: normal Dissection: no Plaque thickness(mm): >3 Plaque mobile: no Atria: Right atrium: Size: normal Spontaneous echo contrast: No Thrombus: no Mass: No Left atrium: Size: normal (normal) Spontaneous echo contrast: No Thrombus: no Mass: No Left atrial appendage: normal Interatrial septum: normal Diastolic function and other findings: Diastolic function: normal Pericardium: normal Pulmonary venous flow: normal Pre-procedure DES exam summary: There is normal LV and RV function with no significant valvular lesions. There is significant atherosclerosis of the aorta. Postprocedure (follow-up) DES exam: LV: unchanged RV: unchanged Interventricular septum: unchanged Aortic valve: unchanged Mitral valve: unchanged Pulmonic valve: unchanged Tricuspid valve: unchanged Atria: unchanged Aorta: unchanged Pericardium: unchanged Left pleural: unchanged Right pleural: unchanged Attestation Statement: By signing this report the attending anesthesiologist certifies that he or she has personally reviewed and interpreted the echocardiogram and has reviewed and or edited and agrees with the written comments contained within the report. us Gian Carroll MD ANESTHESIA ORDERABLES Suni l Result * (ABNORMAL) POC Blood Gas and Chemistries, Arterial - (01/28/2025 10:44 AM CDT) pH, Art POC 7.26(L) 7.35 - 7.45 pCO2, Art POC 47(H) 35 - 45 mmHg [facility] pO2, Art POC 143(H) 83 - 108 mmHg [facility] Na, POC 141 135 - 145 mmol/L [facility] K POC 4.1 3.3 - 4.9 mmol/L [facility] Comment: Interpretive Data Not all point of care methods assess for hemolysis. Confirm with instrument and retest K+ if not consistent with clinical signs and symptoms. Current Interpretive Data was last revised on 2023. Cl, POC 112(H) 97 - 110 mmol/L [facility] Ionized Ca, POC 5.02 4.50 - 5.10 mg/dL [facility] Glucose, POC 104 70 - 199 mg/dL [facility] Lactate POC 1.2 0.7 - 2.0 mmol/L [facility] SO2 (eb) arterial 100(H) 90 - 95 % [facility] Base excess, POC -5.9 mmol/L [facility] HCO3, Art POC 20 20 - 30 mmol/L [facility] Hct, POC 32.0(L) 36.3 - 45.3 % [facility] Total Hb, POC 10.6(L) 11.9 - 15.5 g/dL [facility] Blood 01/28/2025 10:4 4 AM CDT 01/28/2025 10:44 AM CDT us Gerardo Melissa MD LAB POCT ORDERABLES - DEVICE Final Result Performing Organization Address [facility] Co de Phone Number [facility] [place] [address] * POCT Activated clotting time, low range (01/28/2025 10:31 AM CDT) ACT 144 123 - 168 sec POC Device Number [id number] [facility] Blood 01/28/2025 10:3 1 AM CDT 01/28/2025 10:31 AM CDT us Gerardo Melissa MD LAB POCT ORDERABLES - DEVICE Final Result Performing Organization Address [facility] Co de Phone Number [facility] [place] [address] * POCT Activated clotting time, low range (01/28/2025 10:23 AM CDT) ACT 136 123 - 168 sec POC Device Number [id number] [facility] Blood 01/28/2025 10:2 3 AM CDT 01/28/2025 10:23 AM CDT us Gerardo Melissa MD LAB POCT ORDERABLES - DEVICE Final Result Performing Organization Address [facility] Co de Phone Number [facility] [place] [address] * BW AN SHEATH INTRODUCER PERFORMABLE, AK AN PROCEDURE PLACEHOLDER (01/28/2025 9:29 AM CDT) Narrative Malika Turpin CRNA - 01/28/2025 9:29 AM CDT Malika Turpin CRNA 01/28/2025 9:30 AM Central Venous Line Patient location: OR Indication: central venous access Staff: Supervising provider: Kylee Garcia MD Placed by: ANANT: Malika Turpin CRNA Procedure prep: Patient position: Trendelenburg. PPE: provider hand hygiene. Prep solution: chlorhexadine/alcohol was applied to area. Ultrasound Evaluation: Ultrasound was prepped into field. Ultrasound image(s) saved to archive. Central line: Laterality: left Site: internal jugular Catheter type: introducer sheath Catheter size: 9 Fr. Technique: anatomy identified with ultrasound, vein located with finder needle, Seldinger technique, wire threaded easily and wire removed intact Venous verification: manometry, ultrasound confirmation and DES confirmation Post insertion: all ports aspirated, all ports flushed easily, line sutured in place and occlusive dressing applied Chlorhexidine patch applied: yes Number of attempts: 1 Assessment: Events: patient tolerated procedure well with no complications Gian Carroll MD ANESTHESIA ORDERABLES Suni l Result * AK AN CENTRAL LINE QUADRUPLE LUMEN, AK AN PROCEDURE PLACEHOLDER (01/28/2025 9:28 AM CDT) Narrative Malika Turpin CRNA - 01/28/2025 9:28 AM CDT Malika Turpin CRNA 01/28/2025 9:29 AM Central Venous Line Patient location: OR Indication: central venous access and CVP monitoring Staff: Supervising provider: Kylee Garcia MD Placed by: ANANT: Malika Turpin CRNA Procedure prep: Patient position: Trendelenburg. PPE: sterile gown, sterile gloves, provider hat/mask, provider hand hygiene and full body drape. Prep solution: chlorhexadine/alcohol was applied to area. Ultrasound Evaluation: Ultrasound was prepped into field. Ultrasound image(s) saved to archive. Prior to the procedure, the cannulated vein was evaluated by ultrasound and deemed suitably patent for access.This vessel was accessed using real-time ultrasound guidance and an image was placed in the patient's medical record Central line: Laterality: left Site: internal jugular Catheter type: quad lumen Catheter length: 16 cm Catheter length at skin: 16 cm Technique: anatomy identified with ultrasound, Seldinger technique, wire threaded easily and wire removed intact Venous verification: pressure transduced, ultrasound confirmation and DES confirmation Post insertion: all ports aspirated, all ports flushed easily, line sutured in place and occlusive dressing applied Chlorhexidine patch applied: yes Number of attempts: 1 Assessment: Events: patient tolerated procedure well with no complications us Gian Carroll MD ANESTHESIA ORDERABLES Edit ed Result - Final * AK AN PROCEDURE PLACEHOLDER (01/28/2025 9:05 AM CDT) Joe Mcbride RN - 01/28/2025 9:05 AM CDT Joe Barrett RN 01/28/2025 9:22 AM Arterial Line Patient location: OR Indication: continuous blood pressure monitoring and blood sampling needed Staff: Supervising provider: Gian Carroll MD Placed by: Anesthesiologist: Kylee Garcia MD Procedure prep: Prep solution: chlorhexadine/alcohol Prep: provider hat/mask and sterile gloves Arterial line: Catheter size: 20 gauge Catheter length: 3/4 inch Catheter type: wire-guided catheter Laterality: left Site: radial artery Line secured: Tegaderm Results: good waveform and good blood return Number of attempts: 1 Assessment: Events: patient tolerated procedure well with no complications us Gian Carroll MD ANESTHESIA ORDERABLES Edit ed Result - Final * AK AN ELECTIVE ENDOTRACHEAL AIRWAY, AK AN PROCEDURE PLACEHOLDER (01/28/2025 9:04 AM CDT) Joe Mcbride RN - 01/28/2025 9:04 AM CDT Joe Barrett RN 01/28/2025 9:05 AM Airway Patient location: OR Urgency: elective Indications for airway management: anesthesia Difficult airway: no Staff: Supervising provider: Gian Carroll MD Placed by: Other staff: Joe Barrett RN Emergent airway documentation: Risks and benefits discussed: yes Consent obtained: yes Consent given by: patient Airway prep: Preoxygenated: yes Patient position: sniffing Mask difficulty assessment: 2 - vent by mask + OA or adjuvant Spontaneous ventilation during airway: absent Sedation level during airway: GA Final airway details: Final airway type: endotracheal airway Tube type: ETT ETT size: 8.0 mm Cuffed: yes Technique used for successful ETT placement: video laryngoscopy Devices/Methods used in placement: stylet Insertion site: oral Blade type: Donta Video blade type: Banda Blade size: 3 Cormack-Lehane (video): grade I - full view of glottis Cuff volume: 6 mL Cuff inflated with: air ETT to lips: 22 cm Placement verified by: CO2 detection Airway secured with: silk tape Number of attempts: 1 Planned trial extubation: yes us Gian Carroll MD ANESTHESIA ORDERABLES Suni l Result * DES Add-On For OR (01/28/2025 6:59 AM CDT) Narrative [facility] PROSOLV_CARDIOREPORT_CONS SCIMAGE - 01/28/2025 6:59 AM CDT Procedure Auto Finalized by Rule: DONALD CV DES DURING CASE OR Please see the Anesthesiologist's Procedure Note for the results. us Gian Carroll MD CV ECHO PROCEDURES Final R esult [facility] PROSOLV_CARDIOREPORT_CONS SCIMAGE * Prepare RBC: 6 Units (01/28/2025 6:57 AM CDT) Product code [id number] [facility] Unit Number [id number] [facility] Product Blood Type BNEG [facility] Dispense Status PRESUMED TRANSFUSED [facility] Product code [id number] [facility] Unit Number [id number] [facility] Product Blood Type BNEG [facility] Dispense Status PRESUMED TRANSFUSED [facility] Product code [id number] [facility] Unit Number [id number] [facility] Product Blood Type BNEG [facility] Dispense Status PRESUMED TRANSFUSED [facility] Product code [id number] [facility] Unit Number [id number] [facility] Product Blood Type BNEG [facility] Dispense Status PRESUMED TRANSFUSED [facility] Product code [id number] Unit Number [id number] E [facility] Product Blood Type BNEG [facility] Dispense Status RETURNED [facility] Product code [id number] [facility] Unit Number [id number] E [facility] Product Blood Type BNEG [facility] Dispense Status RETURNED [facility]OPE Blood 01/28/2025 6:57 AM CDT 01/28/2025 6:56 AM CDT Narrative KRISTIE POPE - 01/28/2025 9:00 PM CDT Specify Procedure:->redo sternotomy, 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 (All products are leukoreduced and CMV- safe)- >No Date required:-[id number] LRRBC # of [id number] Reasons:-Hold for procedure (specify procedure)} Gerardo Melissa MD BLOOD BANK PRODUCT ORDERABLES Final Result KRISTIE POPE [facility] [place] [address] * TYPE AND SCREEN 14 DAY (01/24/2025 4:44 PM CDT) Taiwo, indirect Negative ABO Rh B Positive [facility]RIST[facility] POPE Blood 01/24/2025 4:44 PM CDT 01/24/2025 5:22 PM CDT Narrative KRISTIE POPE - 01/24/2025 6:33 PM CDT Is this test being ordered in advance for a procedure?->Yes Expected date of procedure:->01/28/25 Has the patient been transfused in the past 3 months?->No Has the patient been in the past 3 months?->No Beryl Duong NP LAB BLOOD BANK TEST ORDERAB LES Final Result Performing Organization Address [facility] Co de Phone Number [facility] [place] [address] * eGFR (01/24/2025 4:44 PM CDT) Pathologist [facility] [place] eGFR 76 >=60 mL/min/1. 73 m2 Comment: Interpretive Data [...] interpretive data was last reviewed 2021. Blood 01/24/2025 4:44 PM CDT 01/24/2025 5:28 PM CDT Beryl Duong NP LAB BLOOD ORDERABLES Final Result Performing Organization Address City/[facility]/ZIP Co de Phone Number [facility] [place] [address] * (ABNORMAL) Differential, auto (01/24/2025 4:44 PM CDT) Pathologist [facility] [place] Neutrophil abs 4.92 1.50 - 6.50 K/cumm Imm gran abs 0.03 0.00 - 0.10 K/cumm [facility] Lymphocyte abs 2.46 0.80 - 3.30 K/cumm [facility] Monocyte abs 0.92(H) 0.20 - 0.80 K/cumm [facility] Eosinophil abs 0.33 0.00 - 0.50 K/cumm [facility] Basophil abs 0.09 0.00 - 0.10 K/cumm [facility] Neutrophil pct 56.3 % [facility] Comment: Interpretive Data Percent cell count reference ranges are not reported, since discordance with absolute values may lead to misinterpretation of CBC data. Current Interpretive Data was last revised on 2017. Imm gran pct 0.3 % [facility] Comment: Interpretive Data Percent cell count reference ranges are not reported, since discordance with absolute values may lead to misinterpretation of CBC data. Current Interpretive Data was last revised on 2017. Lymphocyte pct 28.1 % [facility] Comment: Interpretive Data Percent cell count reference ranges are not reported, since discordance with absolute values may lead to misinterpretation of CBC data. Current Interpretive Data was last revised on 2017. Monocyte pct 10.5 % [facility] Comment: Interpretive Data Percent cell count reference ranges are not reported, since discordance with absolute values may lead to misinterpretation of CBC data. Current Interpretive Data was last revised on 2017. Eosinophil pct 3.8 % [facility] Comment: Interpretive Data Percent cell count reference ranges are not reported, since discordance with absolute values may lead to misinterpretation of CBC data. Current Interpretive Data was last revised on 2017. Basophil pct 1.0 % [facility] Comment: Interpretive Data Percent cell count reference ranges are not reported, since discordance with absolute values may lead to misinterpretation of CBC data. Current Interpretive Data was last revised on 2017. Blood 01/24/2025 4:44 PM CDT 01/24/2025 5:28 PM CDT us Beryl Duong SURFACE SUPPLY BREATHING APPARATUS LAB BLOOD ORDERABLES Final Result [facility] [place] [address] * CPAP aPTT algorithm (01/24/2025 4:44 PM CDT) aPTT 33 26 - 38 sec Comment: Interpretive Data Heparin therapeutic range: 66.0 - 100.0 seconds. Range based on correlation with therapeutic heparin activity range of 0.3 - 0.7 Units/mL. Current interpretive data was last revised on 2023. Blood 01/24/2025 4:44 PM CDT 01/24/2025 5:32 PM CDT us Beryl Duong NP LAB BLOOD ORDERABLES Final Result [facility] [place] [address] * (ABNORMAL) Urinalysis reflex to microscopic and culture Urine, clean voided (01/24/2025 4:44 PM CDT) Color, ur Yellow Yellow Clarity, ur Clear Clear [facility] Specific gravity, ur 1.019 1.003 - 1.030 [facility] pH, urine 6.0 [facility] Comment: Interpretive Data U rine pH is affected by diet, medications, systemic acid-base disturbances, and renal tubular function. pH may affect urinary stone formation. For example, urine pH below 6.0 may help reduce the tendency for calcium phosphate stones and pH greater than 6.0 may reduce the tendency for uric acid stone formation. Source: [facility] Current Interpretive Data was last revised on 2017 Protein, ur ql 1+(A) Negative [facility] Glucose, ur ql Negative Negative [facility] Ketones, ur Negative Negative [facility] Bilirubin, ur Negative Negative [facility] Blood, ur Negative Negative [facility] Urobilinogen, ur <2.0 <2.0 mg/dL [facility] Nitrite, ur Negative Negative [facility] Leukocyte esterase, ur 1+(A) Negative [facility] UA reflex comment Reflex to microscopic UA will be performed. [facility] Urine, clean voided 01/24/2025 4:44 PM CDT 01/24/2025 5:17 PM CDT Beryl Duong NP LAB MICROBIOLOGY - GENERAL ORDERABLES Final Result Performing Organization Address City/[facility]/ZIP Co de Phone Number [facility] [place] [address] * CBC with auto differential (01/24/2025 4:44 PM CDT) Pathologist [facility] WBC 8.75 3.80 - 9.90 K/cumm Hgb 11.9 11.9 - 15.5 g/dL [facility] Hct 36.0 35.6 - 45.5 % [facility] Plt 276 150 - 400 K/cumm [facility] MPV 10.6 9.1 - 12.3 fL [facility] RBC 3.99 3.90 - 5.20 M/cumm [facility] MCV 90.2 81.3 - 96.4 fL [facility] MCH 29.8 27.1 - 33.3 pg [facility] MCHC 33.1 32.3 - 35.7 g/dL [facility] RDW CV 12.8 11.1 - 14.9 % [facility] RDW SD 42.3 35.7 - 48.1 fL [facility] NRBC abs 0.00 0.00 - 0.01 K/cumm [facility] Blood 01/24/2025 4:44 PM CDT 01/24/2025 5:28 PM CDT us Beryl Duong NP LAB BLOOD ORDERABLES Final Result Performing Organization Address City/[facility]/ZIP Co de Phone Number [facility] [place] [address] * (ABNORMAL) Urinalysis, microscopic only (01/24/2025 4:44 PM CDT) WBC, ur 6-10(A) 0 - 5 /HPF RBC, ur 0-2 0 - 2 /HPF [facility] Epithelial cells, squamous, ur 1-5 0 - 5 /HPF [facility] Mucous, ur Present(A) [facility] Hyaline casts, ur 11-20(A) 0 - 10 /LPF [facility] Culture Reflex Comment Reflex conditions for urine culture (WBC >10) not met. [facility] Urine, clean voided 01/24/2025 4:44 PM CDT 01/24/2025 5:17 PM CDT Beryl Duong NP LAB URINE ORDERABLES Final Result Performing Organization Address [facility] Co de Phone Number [facility] [place] [address] * Protime-INR (01/24/2025 4:44 PM CDT) PT 11.7 10.2 - 13.5 sec INR 1.04 0.90 - 1.20 [facility] Comment: Interpretive data Oral anticoagulant therapeutic ranges: Venous thromboembolism prophylaxis or treatment: 2.0-3.0 CARDIOLOGY Standard range: 2.0-3.0 High-intensity range: 2.5-3.5 Refer to indication-specific guidelines for appropriate target ranges for prosthetic heart valve replacement. Current interpretive data was last revised on 2019. Blood 01/24/2025 4:44 PM CDT 01/24/2025 5:32 PM CDT Beryl Duong NP LAB BLOOD ORDERABLES Final Result Performing Organization Address [facility] Co de Phone Number [facility] [place] [address] * Basic metabolic panel (01/24/2025 4:44 PM CDT) Sodium 144 135 - 145 mmol/L Potassium, pl 4.4 3.3 - 4.9 mmol/L [facility] Chloride 107 97 - 110 mmol/L [facility] CO2 25 22 - 32 mmol/L [facility] Anion gap 12 2 - 15 mmol/L [facility] BUN 17 6 - 25 mg/dL [facility] Creatinine 0.84 0.60 - 1.10 mg/dL [facility] Glucose 93 70 - 199 mg/dL [facility] Comment: Interpretive Data Fasting glucose >/= 126 [...] 2022. Calcium 9.5 8.5 - 10.3 mg/dL [facility] Blood 01/24/2025 4:44 PM CDT 01/24/2025 5:28 PM CDT us Beryl Duong NP LAB BLOOD ORDERABLES Final Result [facility] [place] [address] * ECG 12 lead (01/24/2025 4:27 PM CDT) Pathologist [facility] Ventricular Rate EKG/Min 65 BPM [facility] Atrial Rate 66 BPM [facility] AK-Interval (MSEC) 186 ms [facility] QRS-Interval (MSEC) 86 ms [facility] QT-Interval (MSEC) 424 ms [facility] QTc 440 ms [facility] P [place] 68 degrees [facility] R [place] 59 degrees [facility] T [place] 85 degrees [facility] Diagnosis Normal sinus rhythm T wave abnormality, consider anterolateral ischemia Abnormal ECG When compared with ECG of 05-NOV-2024 09:34, PREVIOUS ECG IS PRESENT Confirmed by Terrance Carbajal MD ([id number]) on 01/26/2025 4:19:29 PM [facility] 01/24/2025 4:27 PM CDT 01/26/2025 4:19 PM CDT us Beryl Duong NP ECG ORDERABLES Final Resul t [facility] * HEPATITIS C AB W/REFL TO HCV [...] file for you. Please contact a client experience manager if you would like additional testing done on this patient or contact your agency sales management assistant to obtain a client custom reflex testing authorization request form. SIGNAL TO CUT-OFF 0.01 <1.00 [facility] [place] Blood specimen (specimen) 03/03/2018 10:07 AM CDT 03/03/2018 10:08 AM CDT Narrative Resulting Agency Comment Performing Organization Information: Site ID: [facility] Name: [facility] Address: [address] [address] Director: Kendall Marsh D.O., MPH us Hunter Schwartz MD LAB BLOOD ORDERABLES Fin al Result Performing Organization Address City/[facility]/ZIP Co de Phone Number [facility] [place] from Last 3 Months or Most Recently Relevant to Health [place] [address] [place] [address] [employer] MED[employer]ARE GOLD [facility] AETNA MEDICARE GOLD Advance Directives For more information, please contact: [phone] * Full Code (Latest Code Status on File) Date Activated Date Inactivated Comments 01/28/2025 5:17 PM 02/07/2025 7:57 PM * Full Code Date Activated Date Inactivated Comments 11/05/2024 10:22 AM 11/05/2024 5:31 PM * Full Code Date Activated Date Inactivated Comments 07/25/2024 6:39 PM 07/26/2024 10:29 PM * Full Code Date Activated Date Inactivated Comments 03/13/2018 2:33 PM 03/14/2018 10:36 PM Care Teams Mental Health Program Manager Relationship Specialty Start Date End Date Allie Chong NP [address] [place] [address] PCP - General Nurse Practitioner 07/26/24
--- OUTSIDE RECORDS SUMMARY | 2025-02-19 18:08 | XMS_ITS | Encounter Summary ---
Author Organization [facility] Address [address] [place] [address] Phone Care Team Providers Care Technical Programs Manager Name Role Phone Dwayne Torres MD Primary Care Provider [phone] Troy Dunn MD Primary Care Provider [phone] Hussain Torres MD Unavailable Reason for Visit * Reason Comments Medication Refill Encounter Details Date Type Department Care Team (Late st Contact Info) Description 04/10/2021 Refill [facility] - Primary Care - [place] [address] [place] [address] Kelsi Reyes MD [address] [place] [address] Medication Refill Social History Tobacco Use Types Packs/Day Years Used Date Smoking Tobacco: Every Day Cigarettes Smokeless Tobacco: Never Comments No Sex and Gender Information Value Date Recorded Sex Assigned at Not on file Legal Sex Female 10:12 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 Gender Identity Not on file Sexual Orientation Not on file documented as of this encounter Plan of Treatment Not on file documented as of this encounter Visit Diagnoses Not on filedocumented in this encounter Care Teams Technical Programs Manager Relationship Specialty Start Date End Date Dwayne Torres MD [address] [place] [address] PCP - General Internal Medicine 05/21/19 12/27/22 Troy Dunn MD [address] [facility] [address] [place] [address] PCP - General Family Medicine 12/28/22 Hussain Torres MD [address] [facility] [address] [place] [address] Consulting Physician Colon and Rectal Surgery 04/12/23 documented as of this encounter
--- OUTSIDE RECORDS SUMMARY | 2025-02-19 18:08 | XMS_ITS | Encounter Summary ---
Author Organization [facility] Address [address] [place] [place] [address] Phone Care Team Providers Care Manager Diversity Name Role Phone Dwayne Torres MD Primary Care Provider [phone] Troy Dunn MD Primary Care Provider [phone] Hussain Torres MD Unavailable Reason for Visit * Reason Comments Medication Refill Encounter Details Date Type Department Care Team (Late st Contact Info) Description 01/12/2021 Refill [facility] - Primary Care - [place] [address] [place] [address] Kelsi Reyes MD [address] [place] [address] Medication Refill Social History Tobacco Use Types Packs/Day Years Used Date Smoking Tobacco: Every Day Cigarettes Smokeless Tobacco: Never Comments No Sex and Gender Information Value Date Recorded Sex Assigned at Not on file Legal Sex Female 10:12 AM DIRECTOR 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 Gender Identity Not on file Sexual Orientation Not on file documented as of this encounter Plan of Treatment Not on file documented as of this encounter Visit Diagnoses Not on filedocumented in this encounter Care Teams Manager Diversity Relationship Specialty Start Date End Date Dwayne Torres MD [address] [place] [address] PCP - General Internal Medicine 05/21/19 12/27/22 Troy Dunn MD [address] [facility] [address] [place] [address] PCP - General Family Medicine 12/28/22 Hussain Torres MD [address] [facility] [address] [place] [address] Consulting Physician Colon and Rectal Surgery 04/12/23 documented as of this encounter
--- OUTSIDE RECORDS SUMMARY | 2025-02-19 18:08 | XMS_ITS | Encounter Summary ---
Author Organization [facility] Address [address] [facility] [place] [address] Phone Care Team Providers Care Group Cio Name Role Phone Dwayne Torres MD Primary Care Provider [phone] Troy Dunn MD Primary Care Provider Hussain Torres MD Unavailable Reason for Visit * Reason Comments Medication Refill Encounter Details Date Type Department Care Team (Late st Contact Info) Description 11/01/2020 Refill [facility] - Primary Care - [place] [address] [place] [address] Ciera Munoz Anitha, PAC [address] [place] [address] Medication Refill Social History Tobacco Use Types Packs/Day Years Used Date Smoking Tobacco: Every Day Cigarettes Smokeless Tobacco: Never Comments No Sex and Gender Information Value Date Recorded Sex Assigned at Not on file Legal Sex Female 10:12 AM BUYER Gender Identity Not on file Sexual Orientation [...] limb documented in this encounter Care Teams Group Cio Relationship Specialty Start Date End Date Dwayne Torres MD [address] [place] [address] PCP - General Internal Medicine 05/21/19 12/27/22 Troy Dunn MD [address] [place] [address] [place] [address] PCP - General Family Medicine 12/28/22 Hussain Torres MD [address] [place] [address] [place] [address] Consulting Physician Colon and Rectal Surgery 04/12/23 documented as of this encounter
--- OUTSIDE RECORDS SUMMARY | 2025-02-19 18:08 | XMS_ITS | Encounter Summary ---
Author Organization [facility] Address [address] [facility] [place] [address] Phone Care Team Providers Care Syrup Filterer Name Role Phone Dwayne Torres MD Primary Care Provider [phone] Troy Dunn MD Primary Care Provider [phone] Hussain Torres MD Unavailable Reason for Visit * Reason Comments Medication Refill Encounter Details Date Type Department Care Team (Late st Contact Info) Description 05/20/2021 Refill [facility] - Primary Care - [place] [address] [place] [address] Kelsi Reyes MD [address] [place] [address] Medication Refill Social History Tobacco Use Types Packs/Day Years Used Date Smoking Tobacco: Every Day Cigarettes Smokeless Tobacco: Never Comments No Sex and Gender Information Value Date Recorded Sex Assigned at Not on file Legal Sex Female 10:12 AM SOCIAL SERVICES AIDE Gender Identity Not on file Sexual Orientation Not on file documented as of this encounter Miscellaneous Notes * Telephone Encounter - Laurel Del Rio RN - 05/21/2021 7:10 AM SOCIAL SERVICES AIDE Refused- no PCP in this practice. AL SERVICES AIDE documented in this encounter Plan of Treatment Not on file documented as of this encounter Visit Diagnoses Not on filedocumented in this encounter Care Teams Syrup Filterer Relationship Specialty Start Date End Date Dwayne Torres MD [address] [place] [address] PCP - General Internal Medicine 05/21/19 12/27/22 Troy Dunn MD #2 [facility] [address] [place] [address] PCP - General Family Medicine 12/28/22 Hussain Torres MD #2 [facility] [address] [place] [address] Consulting Physician Colon and Rectal Surgery 04/12/23 documented as of this encounter
--- OUTSIDE RECORDS SUMMARY | 2025-02-19 18:08 | XMS_ITS | Encounter Summary ---
Author Organization [facility] Address [address] [facility] [place] [address] Phone Care Team Providers Care Laboratory Tech Name Role Phone Troy Dunn MD Primary Care Provider [phone] Hussain Torres MD Unavailable Reason for Visit * Reason Comments Medication Refill Encounter Details Date Type Department Care Team (Late st Contact Info) Description 09/30/2023 [facility] #2 [place] [address] Troy Dunn MD #[address] [address] Medication Refill Social History Tobacco Use Types Packs/Day Years Used Date Smoking Tobacco: Former Cigarettes 1 53.2 1 971 - 07/25/2023 Smokeless Tobacco: Never Comments:Quit for 18 years i n between Alcohol Use Standard Drinks/Week Comments Not Currently 0 (1 standard drink = 0.6 oz pur e alcohol) [facility] Utilities Answer Date Recorded In the past 12 months has [employer] electric, gas, oil, or water company threatened to shut off services in your home? No 04/28/2023 Social Connection and Isolation Panel Answer Date Recorded In a typical week, how many times do you talk on the phone with family, friends, or neighbors? 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 Gender Identity Not on file Sexual Orientation Not on file documented as of this encounter Miscellaneous Notes * Telephone Encounter - Roseline Eduardo RN - 09/30/2023 11:39 AM CDT Medication([facility]) [facility] Medication Refill Standing Order for Pediatricand [...] [place] 12/28/22 Office Visit Troy Dunn MD [facility] Showing recent visits within past 365 [...] [place] 12/28/22 Office Visit Troy Dunn MD [facility] Showing recent visits within past 365 [...] documented as of this encounter Care Teams Laboratory Tech Relationship Specialty Start Date End Date Troy Dunn MD #2 [facility] [address] [place] [address] PCP - General Family Medicine 12/28/22 Hussain Torres MD #2 [facility] [address] [place] [address] Consulting Physician Colon and Rectal Surgery 04/12/23 documented as of this encounter
--- OUTSIDE RECORDS SUMMARY | 2025-02-19 18:08 | XMS_ITS | Encounter Summary ---
Author Organization [facility] Address [address] [place] [address] Phone Care Team Providers Care Tire Beader Maker Name Role Phone Allie Chong NP Primary Care Provider [phone] Encounter Details Date Type Department Care Team (Late st Contact Info) Description 08/02/2024 Telephone [facility] Medicine Cardiology [address] [facility] Advanced Medicine 8th [place] [address] [place] [address] Ana Waller Social History Tobacco [...] on file Legal Sex Female 12:36 AM EXTRUSION DIE COORDINATOR Gender Identity Not on file Sexual Orientation Not on file documented as of this encounter Plan of Treatment Not on file documented as of this encounter Visit Diagnoses Not on filedocumented in this encounter Additional Health Concerns Infection Onset Date Last Indicated Resolved Time Ring Surveillance: Simon cantu Comment:[id number] 01/29/2025 01/29/2025 01/29/2025 1:14 PM C DT documented as of this encounter Care Teams Tire Beader Maker Relationship Specialty Start Date End Date Allie Chong NP [address] [place] [address] PCP - General Nurse Practitioner 07/26/24 documented as of this encounter
--- OUTSIDE RECORDS SUMMARY | 2025-02-19 18:08 | XMS_ITS | Encounter Summary ---
Author Organization [facility] Address [address] [facility] [place] [address] Phone Care Team Providers Care Corporation Pilot Name Role Phone Dwayne Torres MD Primary Care Provider [phone] Troy Dunn MD Primary Care Provider [phone] Hussain Torres MD Unavailable Reason for Visit * Reason Comments Medication Refill Encounter Details Date Type Department Care Team (Late st Contact Info) Description 05/22/2021 Refill [facility] - Primary Care - [place] [address] [place] [address] Kelsi Reyes MD [address] [place] [address] Medication Refill Social History Tobacco Use Types Packs/Day Years Used Date Smoking Tobacco: Every Day Cigarettes Smokeless Tobacco: Never Comments No Sex and Gender Information Value Date Recorded Sex Assigned at Not on file Legal Sex Female 10:12 AM TEASEL SETTER Gender Identity Not on file Sexual Orientation Not on file documented as of this encounter Miscellaneous Notes * Telephone Encounter - Yoko Dwyer RN - 05/22/2021 10:42 AM CST Pt pcp is Dwayne Torres MD EL SETTER documented in this encounter Plan of Treatment Not on file documented as of this encounter Visit Diagnoses Not on filedocumented in this encounter Care Teams Corporation Pilot Relationship Specialty Start Date End Date Dwayne Torres MD [address] [place] [address] PCP - General Internal Medicine 05/21/19 12/27/22 Troy Dunn MD #2 [facility] [address] [place] [address] PCP - General Family Medicine 12/28/22 Hussain Torres MD #2 [facility] [address] [place] [address] Consulting Physician Colon and Rectal Surgery 04/12/23 documented as of this encounter
--- OUTSIDE RECORDS SUMMARY | 2025-02-19 18:08 | XMS_ITS | Clinical Summary ---
Author Organization [facility] Address [address] [place] [address] Phone Care Team Providers Care Riverboat Master Name Role Phone Troy Dunn MD Primary Care Provider [phone] Hussain Torres MD Unavailable Allergies No known active allergies Medications Echinacea-Gold enseal ([facility] PO) Take by mouth daily. Active nitroGLYCERIN (NITROSTAT) 0.3 MG SL Tablet DISSOLVE ONE TABLET UNDER THE TONGUE EVERY 5 MINUTES NEEDED FOR CHEST PAIN. DO NOT EXCEED A TOTAL OF 3 DOSES IN 15 MINUTES 100 Tablet 4 Active carvedilol (COREG) 12.5 MG Tablet Take 1 Tablet by mouth 2 times daily. 180 Tablet 2 4 Active DULoxetine (CYMBALTA) [address] Particles Take 1 Capsule by mouth daily. 90 Capsule 3 4 Active ezetimibe (ZETIA) 10 MG Tablet Take 1 Tablet by mouth daily. 90 Tablet 2 4 Active losartan (COZAAR) 100 MG Tablet Take 1 Tablet by mouth daily. 90 Tablet 3 4 Active meclizine (ANTIVERT) 25 MG Tablet Take 1 Tablet by mouth 3 times daily as needed for Dizziness. 30 Tablet 4 Active rosuvastatin (CRESTOR) 20 MG Tablet Take 1 tablet by mouth nightly 90 Tablet 5 Active clopidogrel (PLAVIX) 75 MG Tablet Take 1 tablet by mouth once daily 90 Tablet 5 Active clopidogrel (PLAVIX) 75 MG Tablet Take 1 tablet by mouth once daily 90 Tablet 1 5 025 Discontinued Active Problems No known active problems Encounters Date Type Department Care Team Description 02/08/[address] [facility]2 [place] [address] Troy Dunn MD Medication Refill 01/22[facility]20[facility] [place] [address] Tryo Dunn MD Medication Refill from Last 3 Months Immunizations Immunization Administration Dates Next Due Covid-19, Mrna, Lnp-s, Pf, 3 0 Mcg/0.3 Ml Dose (Vollee) 12/11/2020,11/20/2020 Influenza Vaccine less than 3 yrs 02/07/2024 Influenza Vaccine, Quadrivalent, PF 04/28/2023,1 ,03/14/2018 Influenza, Intradermal, Quad rivalent, Preservative Free 03/14/2018 Pneumococcal Vaccine Adult - 23 Valent 0 Pneumococcal conjugate PCV20 , polysaccharide [id number] conjugate, adjuvant, PF 04/28/2023 Family History Medical [...] drink = 0.6 oz pur e alcohol) [facility] Utilities Answer Date Recorded In the past 12 months has th e electric, gas, oil, or water company threatened to shut off services in your home? No 04/28/2023 Social Connection and Isolation Panel Answer Date Recorded In a typical week, how many times do you talk on the phone with family, friends, or neighbors? 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 Gender Identity Not on file Sexual Orientation [...] - Risk 60-74 years 1-dose series) 2016 Medicare Initial AWV [id number] 05/02/2023 Mammogram 06/08/2023 06/08/2022 Influenza Immunization (#1) 2024 10/0 12/2023, 04/28/2023, 02/14/2020, Additional history exists SARS-COV-2 Immunization (3 - 2025-26 season) 2024 12/11/2020, 11/20/2020 Colonoscopy 05/12/2028 05/12/2023, [...] CDT) hepatitis C antibody 0.09 <1 S/[facility] ARCH [id number] B 12/28/2022 9:07 PM CDT [facility] Comment: Signal/Cutoff ratio < 0.79 is Nondetected Signal/Cutoff ratio 0.80-0.99 is Grayzone Signal/Cutoff ratio > 0.99 is Detected Supplemental assays are recommended if signal/cutoff ratio is >/=1.00. Signal/cutoff ratio result >/= 5.00 is 97% predictive of positivity for recombinant immunoblot assay (RIBA) and will be reported to the [place] Department of Public Health as required. Blood Venipuncture / Unknown 12/28/2022 11:27 AM CDT 12/28/2022 11:27 AM CDT us Troy Dunn MD CHEMISTRY ORDERABLES Final Re sult [facility] [address] [place] [address], [place] from Last 3 Months or Most Recently Relevant to Health Maintenance Insurance [address] [address] MEDICARE C [employer]ET[employer] Care Teams Riverboat Master Relationship Specialty Start Date End Date Troy Dunn MD #2 [facility] [address] [place] [address] PCP - General Family Medicine 12/28/22 Hussain Torres MD #2 [facility] [address] [place] [address] Consulting Physician Colon and Rectal Surgery 04/12/23
[2025-02-19 19:45] LABS: Add Urine Microscopic? YES; Appearance Urine Clear (Clear); Glucose Urine UA Negative (Negative); Leukocyte Esterase Ur 1+ LEU/UL (Negative); Need Manual Microscopic Reviewed; Nitrate Urine Negative (Negative); Non Pathogenic Casts 0-2; Specific Grav Ur 1.013 (1.001-1.035)
[2025-02-19 20:04] LABS: Thyroid Stimulating Hormone 2.300 uIU/mL (0.465-4.680)
== END 2025-02-19 14:23 | disposition home or self-care (01) ==
PROVIDERS: PCP Nurse Practitioner Adult Health; Visit Provider Nurse Practitioner Adult Health
DX: E03.9 Hypothyroidism, unspecified (principal); R39.9 Unspecified symptoms and signs involving the genitourinary system
CPT/HCPCS: 36415; 81001; 84443; 87077; 87086; 87186

== ENCOUNTER 2025-04-17 11:20 | Outpatient (CLI) | payer MEDICARE, SELFPAY ==
--- NOTE | ~2025-04-17 | MR_ITS ---
EXAMINATION: MR renal wo/w con DATE: 04/17/2025 12:54 INDICATION: Other specified disorders of kidney and ureter TECHNIQUE: Magnetic resonance imaging (MRI) of the abdomen was performed without and with 19 mL Multihance intravenous contrast. Sequences included coronal T2- weighted SS-FSE, coronal and axial FS 2D-FIESTA, axial STIR FSE, axial T2- weighted SS-FSE, axial T2-weighted FS SS-FSE, axial diffusion-weighted SE, axial dual-echo T1-weighted FSPGR, and axial and coronal T1-weighted LAVA. Postcontrast axial T1-weighted LAVA images were obtained in a time course. Postcontrast coronal T1-weighted LAVA images were obtained. COMPARISON: CT dated 07/27/2018 FINDINGS: Heart size is normal. No pericardial or pleural effusion. Status post cholecystectomy. Mild diffuse hepatic steatosis. Spleen, pancreas and bilateral adrenal glands are normal. 1.4 cm cyst at the upper pole of the left kidney. Mild left hydronephrosis with transition point at the ureterovesicular junct ion.. 8 mm low signal intensity likely nonobstructing renal stone within an upper pole calyx of the right kidney. No right-sided hydronephrosis. Visualized portions of bowels are unremarkable. No pathologically enlarged abdominal lymphadenopathy. Mild to moderate lower thoracic spondylosis with fibrofatty degenerative endplate changes at multiple levels in the lower thoracic spine. IMPRESSION: 1. Mild left hydronephrosis with transition point at the ureterovesicular junction without evident obstructing lesion. 2. 8 mm low signal intensity likely nonobstructing renal stone within an upper pole calyx of the right kidney. Reviewed, dictated and finalized at location A. T OF SALE ASSOCIATE IMPRESSION: 1. Mild left hydronephrosis with transition point at the ureterovesicular junct ion without evident obstructing lesion. 2. 8 mm low signal intensity likely nonobstructing renal stone within an upper pole calyx of the right kidney.
--- OUTSIDE RECORDS SUMMARY | 2025-04-17 13:40 | XMS_ITS | Clinical Summary ---
Author Organization [facility] Address [address] [place] [address] Care Team Providers Care Mold Filling Operator Name Role Phone Dwayne Torres MD Primary Care Provider [phone] Source Comments [facility] Affiliates and Associated Physician Practices is amultiple site organization consisting of ambulatory clinics and hospital sitesin [place], [place], [place] and [place]. This disclosure is being madepursuant to the Care Everywhere program and may not contain all information available regarding this patient. Last updated 18.[facility] [employer] Active Problems Problem Noted Date Diagnosed Date [...] on file Legal Sex Female 6:47 PM GROUND SERVICES INSTRUCTOR Gender Identity Not on file Sexual Orientation [...] DEPRESSION SCREENING 05/02/2024 COVID-19 VACCINE (1 - 2024-2 6 season) 2024 INFLUENZA VACCINE (#1) 2024 Respiratory [...] complete this topic Insurance NILSA Care Teams Mold Filling Operator Relationship Specialty Start Date End Date Dwayne Torres MD [address] [place] [address] PCP - General 04/07/12
--- OUTSIDE RECORDS SUMMARY | 2025-04-17 13:40 | XMS_ITS | Encounter Summary ---
Author Organization [facility] Address [address] [place] [address] Phone Care Team Providers Care Wire Charger Name Role Phone Dwayne Torres MD Primary Care Provider [phone] Troy Dunn MD Primary Care Provider [phone] Hussain Torres MD Unavailable Reason for Visit * Reason Comments Medication Refill Encounter Details Date Type Department Care Team (Late st Contact Info) Description 05/26/2021 Refill [facility] - Primary Care - [place] [address] [place] [address] Kelsi Reyes MD [address] [place] [address] Medication Refill Social History Tobacco Use Types Packs/Day Years Used Date Smoking Tobacco: Every Day Cigarettes Smokeless Tobacco: Never Comments No Sex and Gender Information Value Date Recorded Sex Assigned at Not on file Legal 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 Female 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 Gender Identity Not on file Sexual Orientation Not on file documented as of this encounter Plan of Treatment Not on file documented as of this encounter Visit Diagnoses Not on filedocumented in this encounter Care Teams Wire Charger Relationship Specialty Start Date End Date Dwayne Torres MD [address] [place] [address] PCP - General Internal Medicine 05/21/19 12/27/22 Troy Dunn MD #2 [facility] [address] [place] [address] PCP - General Family Medicine 12/28/22 Hussain Torres MD #2 [facility] [address] [place] [address] Consulting Physician Colon and Rectal Surgery 04/12/23 documented as of this encounter
--- OUTSIDE RECORDS SUMMARY | 2025-04-17 13:40 | XMS_ITS | Encounter Summary ---
Author Organization [facility] Address [address] [place] [address] Care Team Providers Care Instant Potato Processing Supervisor Name Role Phone Dwayne Torres MD Primary Care Provider [phone] Encounter Details Date Type Department Care Team (Late st Contact Info) Description 11/22/2017 Lab Requisition [facility] Care DermPath Lab [address] [facility] [place] [address] Kassandra Maurice MD [address] 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 Gender Identity Not on file Sexual Orientation Not on file documented as of this encounter Plan of Treatment Not on file documented as of this encounter Procedures Procedure Name Priority Date/Time Associated Diagnosis Comments DERMATOPATH TECHNICAL REPORT Routine 11/21/2017 12:00 AM CDT documented in this encounter Results * DERMATOPATH TECHNICAL REPORT (11/21/2017 12:00 AM CDT) Case Report Dermatopathology Report Case: [id number] Authorizing Provider: Kassandra Maurice MD Collected: 11/21/2017 12:00 AM Pathologist: Shanika Cameron MD Received: 11/22/2017 06:13 AM Specimen: Skin, right shoulder 11:33 AM CDT DERMATOPATHOLOGY LABORATORY Clinical History Bx proven BCC. Prior Biopsy [id number]. Check margins. 11:33 AM T DERMATOPATHOLOGY LABORATORY Gross Description Specimen A: Received is one formalin filled container labeled with the patient's name and designated right shoulder.The specimen consists of an ellipse measuring [id number] and is oriented with the notch at [...] and submitted in cassettes 3-4. Jar 0. [facility] Dermatopathology Laboratory performed the technical component only. 11:33 AM T DERMATOPATHOLOGY LABORATORY Embedded Images 11:33 AM [facility] DERMATOPATHOLOGY LABORATORY DISCLAIMER An external and internal positive and negative controls are appropriate for the histochemical, immunohistochemical and immunofluorescence stain(s) in this case (if any), except where stated explicitly. The performance characteristics of the stain(s) cited in this report were developed and its performance characteristic determined by the Dermatopathology Laboratory at [facility]. These tests need not be, and therefore are not, approved by the [place] Food and Drug Administration. The tests are used for clinical purposes. 11:33 AM [facility] DERMATOPATHOLOGY LABORATORY at 1133 CDT Pathology/Cytolog y TISSUE SPECIMEN FROM SKIN / Unknown 11/21/2017 11/22/2017 6:13 AM CDT us Kassandra Maurice MD LAB - PATHOLOGY/CYTOLOGY ORD ERABLES Final Result DERMATOPATHOLOGY LABORATORY [facility] - Department of Dermatology [address] [facility], 5th [place] [address], [facility] [phone] documented in this encounter Visit Diagnoses Not on filedocumented in this encounter Care Teams Instant Potato Processing Supervisor Relationship Specialty Start Date End Date Dwayne Torres MD [address] [place] [phone] PCP - General 04/07/12 documented as of this encounter
--- OUTSIDE RECORDS SUMMARY | 2025-04-17 13:41 | XMS_ITS | Clinical Summary ---
Author Organization [facility] [address] [facility] Address [address] [place] [id number] Phone Care Team Providers Care Field Service Tech Name Role Phone Allie Chong NP Primary Care Provider [phone] Allergies No known active allergies Medications ezetimibe [...] (bkfst, dinner),Indications: hypertension, Informant: Self, Reported on 03/05/2025 rosuvastatin (CRESTOR) 20 mg tablet Take 1 tablet (20 mg total) by mouth daily. 30 tablet 03/15/20 18 Active Additional Information Patient taking differently:20 mg oralEvery morning, Indications: Cerebral Thromboembolism Prevention, coronary artery disease, hyperlipidemia, Informant: Self, Reported on 03/05/2025 clopidogrel (PLAVIX) 75 mg tabletIndications: myocardial infarction prevention Take 1 tablet (75 mg total) by mouth daily. 30 tablet 03/15/20 18 Active Additional Information Patient taking differently:75 mg oralDaily (early AM), Indications: Cerebral Thromboembolism Prevention, Thrombosis Prevention after PCI, Informant: Self, Reported on 03/05/[address] (CYMBALTA) 60 mg capsuleIndications :Chronic Musculoskeletal Pain Take 1 capsule (60 mg total) by mouth nightly. 30 capsule 03/14/20 18 Active Additional Information Patient taking differently:60 mg oral Nightly,Indications: Anxiety with Depression, Chronic Musculoskeletal Pain, Informant: Self, Reported on 03/05/2025 losartan (COZAAR) 100 mg tablet Take 1 tablet (100 mg total) by mouth daily 07/28/19 25 2025 Active Additional Information Patient taking differently:100 mg oralEvery morning, Indications: hypertension, Informant: Self, Reported on 03/05/2025 levothyroxine (SYNTHROID) 88 mcg tabletIndications: hypothyroidism Take 1 tablet (88 mcg total) by mouth nuclear supervising operator before breakfast 10/09/19 25 Active meclizine (ANTIVERT) 25 mg tabletIndications: Vertigo Take 1 tablet (25 mg total) by mouth 3 (three) times a day as needed for dizziness or nausea 03/22/20 24 Active nitroglycerin (NITROSTAT) 0.3 mg SL tabletIndications: [...] or throat 3 (three) times a day 11/02/19 25 Active mupirocin (BACTROBAN) 2 % ointmentIndication s:Methicillin-Resi stant S. Aureus Nasal Colonization,preop med for surgery on 01/28/25 Apply to each nostril 2 (two) times a day 11/02/19 25 Active mirtazapine (REMERON) 15 mg tabletIndications: sleep Take 1 tablet (15 mg total) by mouth nightly as needed (sleep) 01/10/20 25 Active aspirin 81 mg enteric coated tabletIndications: Cerebral Thromboembolism Prevention Take 1 tablet by mouth daily Active acetaminophen 500 mg capsuleIndications :Pain,1st line for pain Take 2 capsules (1,000 mg total) by mouth every 6 (six) hours 30 tablet 02/08/20 25 Active albuterol HFA (PROVENTIL HFA,VENTOLIN HFA,PROAIR HFA) 90 mcg/actuation inhalerIndications :Bronchospasm Prevention Inhale 2 puffs every 4 (four) hours as needed for wheezing 1 each 02/08/20 25 2025 Active docusate sodium (COLACE) 100 mg capsuleIndications :constipation Take 1 capsule (100 mg total) by mouth 2 (two) times a day 60 capsule 02/08/20 25 Active polyethylene glycol (MIRALAX) 17 gram packetIndications: constipation Take 1 packet (17 g total) by mouth daily as needed for constipation 5 packet 02/08/20 25 Active senna (SENOKOT) 8.6 mg tabletIndications: constipation Take 1 tablet by mouth 2 (two) times a day 60 tablet 02/08/20 25 Active carvediloL (COREG) 12.5 mg tabletIndications: hypertension [...] Indications: excessive fat in the blood Active Active Problems Problem Noted Date Diagnosed [...] Assessment & Plan (02/06/2025 11:17 AM CDT): PET TECHNOLOGIST following. - Advance diet to regular food [...] CDT): Symptoms started when she presented to [facility] in June with symptoms from a [...] Assessment & Plan (01/28/2025 9:49 AM CDT): [facility] 11/05: Marked restenosis of proximal and mid previously placed bare metal stents 2003 successfully retreated with laser angioplasty and over stenting with DAVION. Occlusion of distal apical LAD stents with apical segment filling from diagonal collateral. Previous cutting balloon angioplasty of PDA widely patent. Plavix to continue for least a month and aspirin indefinitely. -plavix held pre-op -cont ASA Rheumatoid arthritis [facility] with negative rheumatoid factor 03/17/2018 [...] joint. Assessment & Plan (03/17/2018 4:57 PM ASSEMBLER STEAM [employer] G[employer] TURBINE): This is based on pain and stiffness [...] Coreg. Assessment & Plan (03/14/2018 4:46 PM ASSEMBLER STEAM [employer] GAS TURBINE): History of hypertension - Continue home losartan, carvedilol Assessment & Plan (03/13/2018 11:41 PM ASSEMBLER STEAM [employer] GAS TURBINE): History of hypertension - Continue home losartan, carvedilol Pyelonephritis 03/03/2018 Assessment & Plan (03/14/2018 4:46 PM ASSEMBLER STEAM AND GAS TURBINE): Patient presents with stabbing back pain, CVA tenderness, UA with 21-[address] shows large stone in R kidney, bilateral hydronephrosis, fat stranding. Lactate negative. - Discharge with 14-day course of Bactrim 800-160 PO BID - Outpatient Urology followup for nephrolithiasis Assessment & Plan (03/13/2018 11:40 PM ASSEMBLER STEAM [employer] GAS TURBINE): Patient presents with stabbing back pain, CVA [...] examination Assessment & Plan (03/14/2018 4:46 PM ASSEMBLER STEAM AND GAS TURBINE): Patient has a history of polyarthralgia, affecting multiple joints. - Continue Duloxetine - PRN Tylenol - PRN Ibuprofen Assessment & Plan (03/13/2018 11:40 PM ASSEMBLER STEAM [employer] G[employer] TURBINE): Patient has a history of polyarthralgia, affecting [...] Encounters Date Type Department Care Team Description 03/06/2025 3:30 PM ASSEMBLER [employer] TURBINE Home Care Visit [facility] [address] [address] [address] [place] [address] Hilda Verde, ROSELINE SN OASIS DISCHARGE 03/05/2025 3:30 PM ASSEMBLER [employer] TURBINE Office Visit [facility] Medicine Vascular Surgery [facility] Medical Office Building [address] [place] [address] Gerardo Melissa MD Subclavian artery stenosis, right (Primary Dx); 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; Presence of other vascular implants and grafts; Encounter for surgical aftercare following surgery of circulatory system; Encounter for surgical aftercare following surgery on the circulatory system 03/05/2025 2:30 PM ASSEMBLER STEAM [employer] G[employer] TURBINE Ancillary Procedure [facility] Vascular Lab Vascular Surgery [address] [place] [address] Encounter for surgical aftercare following surgery on the circulatory system; Presence of other vascular implants and grafts 02/25/2025 2:30 PM CDT Home Care Visit [address] [place] [address] Hilda Verde, ROSELINE SN HOME VISIT 02/21/2025 3:00 PM CDT Home Care Visit [address] [place] [address] Hilda Verde, ROSELINE SN HOME VISIT 02/19/2025 12:00 PM CDT Home Care Visit [address] [place] [address] Juliane Matt, HENRI OT DISCIPLINE DISCHARGE 02/15/2025 3:00 PM CDT Home Care Visit [address] [place] [address] Hilda Verde, ROSELINE SN HOME VISIT 02/15/2025 9:00 AM CDT Home Care Visit [address] [place] [address] Lakeshia Huynh, PT PT INITIAL EVALUATION 02/12/2025 1:30 PM CDT Home Care Visit [address] [place] [address] Juliane Matt OT OT INITIAL EVALUATION 02/11/2025 9:00 AM CDT Home Care Visit [address] [place] [address] Hilda Verde, RN SN OASIS START OF CARE 02/11/2025 Plan of Care Documentation [address] [place] [address] 02/11/2025 Orders Only [facility] Medicine Surgery [address] [facility] 8th [place] [address] [place] [address] Gerardo Melissa MD Encounter for surgical aftercare following surgery on the circulatory system (Primary Dx); Presence of other vascular implants and grafts 02/08/[address] [place] [address] Kayla Gongora RN 02/06/2025 1:16 PM CDT - 02/06/2025 11:59 PM CDT Hospital Encounter [facility] Radiology [address] [place] [address] Discharge Disposition: Discharge to home or self care 01/28/2025 8:30 AM CDT - 01/28/2025 4:50 PM CDT Surgery [facility] Operating Room [address] [place] [address] Gerardo Melissa MD Redo sternotomy, ascending aorta to right subclavian (10 mm Gelweave) and right carotid artery (8 mm [place] PTFE) bypass, Right Carotid endarterectomy, Right pectoralis minor tenotomy 01/28/2025 8:30 AM CDT Anesthesia Event [facility] Operating Room [address] [place] [address] Gian Carroll MD Thomas, Karen D., AUDIO VISUAL AIDS DIRECTOR 01/28/2025 7:00 AM CDT Ancillary Procedure [facility] Operating Room [address] [place] [address] 01/28/2025 6:24 AM CDT - 02/07/2025 3:51 PM CDT Hospital Encounter [facility] [address] [place] [address] Gerardo Melissa MD 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 (Primary Dx); Acute ischemic stroke (HCC); Essential hypertension; Acute post-thoracotomy pain [G89.12]; Painful respiration [R07.1]; Pain of right upper extremity [M79.601]; High risk medication use [Z79.899] Discharge Disposition: Discharge to home, home health skilled care 01/25/2025 Telephone [facility] Medicine Vascular Surgery [address] [facility] Medical Office Building [address] [place] [address] Gerardo Melissa MD 01/24/2025 3:00 PM CDT Pre-Admission Testing [facility] Center for Preoperative Assessment and Planning [facility] Advanced Medicine ([facility]) [address] [place] [id number] Preoperative testing (Primary Dx); Coronary artery disease, unspecified vessel or lesion type, unspecified whether angina present, unspecified whether [place] or transplanted heart from Last 3 Months Immunizations Immunization Administration [...] ANGIOGRAPHY AND WITH OR WITHOUT LEFT VENTRICULOGRAM 91405; Surgeon: Mitch Remy MD PhD; Location: [facility] CARDIAC NETWORK SUPPORT MANAGER; Service: Cardiovascular; Laterality: Left; Medical devices from [...] Smoking Tobacco: Former Cigarettes 1.4 33 1 97 - 2023 Passive Smoke Exposure: Past Smokeless Tobacco: Never Tobacco Cessation:Counseling Given: Not Answered Alcohol Use Standard Drinks/Week Comments Yes 0 (1 standard drink = 0.6 oz pur e alcohol) OASIS D0700: Social Isolation Answer Da te Recorded Frequency of experiencing loneliness or isolatio n Never 03/06/2025 OASIS A1250: Transportation Answer Date Recorded Lack of Transportation (Medical) No 03/06/2025 Lack of Transportation (Non-Medical) No 03/06/2025 Patient Unable or Declines to Respond No 03/06/2025 OASIS B1300: Health Literacy Answer Ilya e Recorded Frequency of needing help to read materials from doctor or pharmacy Never 03/06/2025 PHQ-2 Answer Date Recorded PHQ-2 Total Score [...] on file Legal Sex Female 12:36 AM ASSEMBLER [employer]URBINE Gender Identity Not on file Sexual Orientation Not on file Last Filed Vital Signs Vital Sign Reading Time Taken Comments Blood Pressure 104/54 03/06/2025 3:07 PM ASSEMBLER [employer] G[employer] TURBINE Pulse 68 03/06/2025 3:07 PM ASSEMBLER STEAM [employer] GAS TURBINE Temperature 36.6 C (97.9 F) 02/25/2025 2:34 PM CDT Respiratory Rate 18 03/06/2025 3:07 PM ASSEMBLER [employer]AM [employer] GAS TURBINE Oxygen Saturation 97% 03/06/2025 3:07 PM ASSEMBLER [employer]AM [employer] G[employer] TURBINE Inhaled Oxygen Concentration - - Weight 81.6 [...] history exists Medical Devices Implanted Type Area General Maintenance Helper Device Identifier Shelf Expiration Date Model / Serial / Lot Terumo Medical Leatha Angio-Seal Vip 6fr Closere Device [id number] - [id number] - [id number] Implanted:Qty : 1 on 11/05/2024 by Mitch Remy MD PhD at [facility] Collagen Right: Femoral Ter[employer] Leatha 05/15/2025 [id number] / [id number] / [id number] Medtronic Card Vasc Surgery 2.25 X 18mm [place] Rx Coronary Stent [id number] - [id number] - [id number] Implanted:Qty : 1 on 11/05/2024 by Mitch Remy MD PhD at [facility] Stent Left: Anterior Descending Cornary Artery Medtronic Card Vasc Surgery 06/05/2027 [id number] / [id number] / [id number] Medtronic Card Vasc Surgery 3.0 X 30mm [place] Rx Coronary Stent [id number] - [id number] Implanted:Qty : 1 on 11/05/2024 by Mitch Remy MD PhD at [facility] Stent Left: Anterior Descending Cornary Artery Medtronic Card Vasc Surgery 04/01/2027 [id number] / [id number] / [id number] Terumo Cardio Vascular Graft Vascular 10mm 30cm Gelweave Wvn Straight Strl [id number] - [id number] - [id number] Implanted:Qty : 1 on 01/28/2025 by Maximiliano Dunbar MD at [facility] Right: Chest Terumo Cardio Vascular [id number] 09/30/2027 [id number] / [id number] / [id number] Wl [employer] [employer] [place] 8mm 40cm 30cm Removable Ring Stretch Thin Wall Graft [id number] - [id number] - [id number] Implanted:Qty : 1 on 01/28/2025 by Maximiliano Dunbar MD at [facility] Right: Neck Wl [employer] [employer] [id number] 10/16/2027 [id number] / [id number] / Procedures Procedure Name Priority Date/Time Associated Diagnosis Comments US ARTERIAL DOPPLER UPPER EXTREMITY BILATERAL Schedule Routine, Read Routine (OP Routine) 03/05/2025 3:50 PM ASSEMBL[employer]URBINE Encounter for surgical aftercare following surgery on the circulatory system Presence of other vascular implants and grafts US CAROTIDS DUPLEX BILATERAL Schedule Routine, Read Routine (OP Routine) 03/05/2025 3:50 PM ASSEMBL[employer] TURBINE Encounter for surgical aftercare following surgery on the circulatory system POCT GLUCOSE DEVICE Routine 02/07/2025 11:22 AM [...] VIDEO IP Routine 02/06/2025 1:33 PM CDT PET TECHNOLOGIST EVALUATE AND TREAT VIDEOFLUOROSCOPIC SWALLOW STUDY Routine [...] 1:13 AM CDT CBC WITHOUT DIFFERENTIAL Routine 1:13 AM CDT LACTATE, WHOLE BLOOD Routine [...] DIFFERENTIAL STAT 02/02/2025 6:19 PM CDT POCT [id number] - ISTAT Routine 02/02/2025 6:05 PM CDT [...] CHEMISTRIES, VENOUS Routine 02/01/2025 5:54 PM CDT PET TECHNOLOGIST EVALUATE AND TREAT FIBEROPTIC ENDOSCOPIC SWALLOW Routine [...] 12:50 PM CDT CBC WITHOUT DIFFERENTIAL Routine 025 12:50 PM CDT POCT GLUCOSE DEVICE Routine [...] LOW RANGE Routine 01/28/2025 11:34 AM CDT TN AN PROCEDURE PLACEHOLDER Routine 01/28/2025 10:44 AM CDT POC BLOOD GAS AND CHEMISTRIES, ARTERIAL Routine 01/28/2025 10:44 AM CDT POCT ACTIVATED CLOTTING TIME, LOW RANGE Routine 01/28/2025 10:31 AM CDT POCT ACTIVATED CLOTTING TIME, LOW RANGE Routine 01/28/2025 10:23 AM CDT TN AN PROCEDURE PLACEHOLDER Routine 01/28/2025 9:29 AM CDT BW AN SHEATH INTRODUCER PERFORMABLE Routine 01/28/2025 9:29 AM CDT TN AN PROCEDURE PLACEHOLDER Routine 01/28/2025 9:28 AM CDT TN AN CENTRAL LINE QUADRUPLE LUMEN Routine 01/28/2025 9:28 AM CDT TN AN PROCEDURE PLACEHOLDER Routine 01/28/2025 9:05 AM CDT TN AN PROCEDURE PLACEHOLDER Routine 01/28/2025 9:04 AM CDT TN AN ELECTIVE ENDOTRACHEAL AIRWAY Routine 01/28/2025 9:04 [...] POD 5 for imbedded case. TB REDO STERNOTOMY. 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 Dunbar's blank DPC. [id number]: Per Malina via case msg, each surgeon [...] TB DES ADD-ON FOR OR Routine 01/28/2025 6:59 AM CDT PREPARE RBC Timed 01/28/2025 6:57 [...] type, unspecified whether angina present, unspecified whether [place] or transplanted heart TYPE AND SCREEN 14 [...] Relevant to Health Maintenance Results * US Arterial Doppler Upper Extremity Bilateral (03/05/2025 3:50 PM ASSEMBLER [employer]URBINE) Anatomical Region Laterality Modality Vascular Bilateral Ultrasound 03/05/2025 2:58 PM ASSEMBLER [employer] G[employer] TURBINE Narrative 03/06/2025 4:02 PM ASSEMBLER STEAM [employer] GAS TURBINE [facility] - Department of Vascular Surgery, Vascular Laboratory [address] [place] [address] Upper Extremity Arterial Doppler Ultrasound Report Patient Name: GABBI HOBSON : 1955 Study Date: 03/05/2025 2:58:00 PM Sex: F Tech: Selina Day RVT Location: [facility] Provider: GERARDO MELISSA Quality: Adequate Order Provider: GERARDO MELISSA PROCEDURES: Vascular Report: Bilateral upper extremity arterial Doppler exam. INDICATIONS: Z48.812 Encounter for surgical aftercare following surgery on the circulatory system and Z95.828 Presence of other vascular implants and grafts. MEASUREMENTS: Right Value Units Left Value Units Rt Brachial Pressure 118 mmHg Lt Brachial Pressure 131 mmHg Rt Radial Pressure 109 mmHg Lt Radial Pressure 129 mmHg Rt Ulnar Pressure 108 mmHg Lt Ulnar Pressure 125 mmHg Rt Radial A/Arm Index 0.83 Lt Radial A/Arm Index 0.98 Rt Ulnar A/Arm Index 0.82 Lt Ulnar A/Arm Index 0.95 Rt 2nd Digit Pressure 102 mmHg Lt 2nd Digit Pressure 135 mmHg Rt Digit 2/Arm Index 0.78 Lt Digit 2/Arm Index 1.03 Right Value Units Left Value Units FINDINGS: Performing Trader: Ashlee Day RVT. Bilateral Arm All Levels: The bilateral axillary, brachial, radial and ulnar artery waveforms are multiphasic. Digits: Normal right digit pressure and waveform. Normal left digit pressure and waveform. CONCLUSIONS: 1. Right Forearm/Arm Index is consistent with moderate peripheral arterial disease - claudication. For reference, NICOLE 0.5 -0.89 is consistent with claudication. 2. Left Forearm/Arm Index is consistent with normal findings. For reference, normal NICOLE is > 0.9 - 1.3. 3. Bilateral Digit Arm Indices are normal, > or = 0.6. HISTORY: Redo sternotomy, ascending aorta to right subclavian and right carotid artery (PTFE) bypass HTN, DM, HLD, CAD, Stroke. PREVIOUS STUDIES: No previous studies for comparison. [...] that is provided above. Electronically Signed By: Ferny Echavarria MD [facility] [phone] 03/06/2025 2:48:58 PM ASSEMBLER [employer] TURBINE Procedure Note Ferny Echavarria MD - 03/06/2025 [facility] - Department of Vascular Surgery,Vascular Laboratory [address] [place] [address] Upper Extremity Arterial Doppler Ultrasound Report Patient Name: GABBI HOBSON : 1955 Study Date: 03/05/2025 2:58:00 PM Sex: F Tech: Selina Day [facility] Location: [facility] Provider: GERARDO MELISSA Quality: Adequate Order Provider: GERARDO MELISSA PROCEDURES: Vascular Report: Bilateral upper extremity arterial Doppler exam. INDICATIONS: Z48.812 Encounter for surgical aftercare following surgery on thecirculatory system and Z95.828 Presence of other vascular implants and grafts. MEASUREMENTS: Right Value Units Left Value Units Rt Brachial Pressure 118 mmHg Lt Brachial Pressure 131 mmHg Rt Radial Pressure 109 mmHg Lt Radial Pressure 129 mmHg Rt Ulnar Pressure 108 mmHg Lt Ulnar Pressure 125 mmHg Rt Radial A/Arm Index 0.83 Lt Radial A/Arm Index 0.98 Rt Ulnar A/Arm Index 0.82 Lt Ulnar A/Arm Index 0.95 Rt 2nd Digit Pressure 102 mmHg Lt 2nd Digit Pressure 135 mmHg Rt Digit 2/Arm Index 0.78 Lt Digit 2/Arm Index 1.03 Right Value Units Left Value Units FINDINGS: Performing Trader: Ashlee Day RVT. Bilateral Arm All Levels: The bilateral axillary, brachial, radial and ulnar artery waveforms aremultiphasic. Digits: Normal right digit pressure and waveform. Normal left digit pressure andwaveform. CONCLUSIONS: 1. Right Forearm/Arm Index is consistent with moderate peripheral arterialdisease - claudication. For reference, NICOLE 0.5 -0.89 is consistent withclaudication. 2. Left Forearm/Arm Index is consistent with normal findings. Forreference, normal NICOLE is > 0.9 - 1.3. 3. Bilateral Digit Arm Indices are normal, > or = 0.6. HISTORY: Redo sternotomy, ascending aorta to right subclavian and right carotidartery (PTFE) bypass HTN, DM, HLD, CAD, Stroke. PREVIOUS STUDIES: No previous studies for comparison. [...] that is provided above. Electronically Signed By: Ferny Echavarria MD [facility] [phone] 03/06/2025 2:48:58 PM ASSEMBL[employer]URBINE us Gerardo Melissa MD IMG US PROCEDURES Final Resul t * US Carotids Duplex Bilateral (03/05/2025 3:50 PM ASSEMBLER [employer] G[employer] TURBINE) Anatomical Region Laterality Modality Vascular Bilateral Ultrasound 03/05/2025 2:55 PM ASSEMBLER [employer] G[employer] TURBINE Narrative 03/06/2025 4:02 PM ASSEMBLER STEAM AND GAS TURBINE [facility] - Department of Vascular Surgery, Vascular Laboratory [address] [place] [id number] Carotid Duplex Ultrasound Report Patient Name: GABBI HOBSON : 1955 (69y 5m) Study Date: 03/05/2025 2:55:54 PM Sex: F Tech: Ori DAY Location: [facility] Provider: GERARDO MELISSA Quality: Adequate Order Provider: GERARDO MELISSA PROCEDURES: Carotid Report: Carotid duplex examination of the extracranial arteries was performed using 2D, color and spectral Doppler. INDICATIONS: Z48.812 Encounter for surgical aftercare following surgery on the circulatory system. MEASUREMENTS: Right Value Units Left Value Units RT Prox ICA PSV 41 cm/sec LT Prox CCA PSV 148 cm/sec RT Prox ICA EDV 11 cm/sec LT Prox CCA EDV 32 cm/sec RT Mid ICA PSV 55 cm/sec LT Distal CCA PSV 88 cm/sec RT Mid ICA EDV 22 cm/sec LT Distal CCA EDV 22 cm/sec RT Distal ICA PSV 74 cm/sec LT Prox ICA PSV 108 cm/sec RT Distal ICA EDV 27 cm/sec LT Prox ICA EDV 32 cm/sec RT VERT PSV 36 cm/sec LT Mid ICA PSV 125 cm/sec LT Mid ICA EDV 37 cm/sec LT Distal ICA PSV 85 cm/sec LT Distal ICA EDV 19 cm/sec LT ECA Prx PSV 101 cm/sec LT ICA/CCA 1.42 ratio LT VERT PSV 88 cm/sec FINDINGS: Performing Trader: Ashlee Day RVT. Rt Common Carotid Artery: The outflow of ascending aorta to right subclavian and right carotid artery bypass grafts are patent. Rt Vertebral Artery: Diminished flow in the right vertebral artery, may indicate more proximal stenosis. Lt Common Carotid Artery: The plaque in the left CCA appears to be heterogeneous and irregular. Atherosclerotic changes of the left common carotid artery with no hemodynamically significant Doppler findings. Lt Internal Carotid Artery: The plaque in the left internal carotid artery appears to be heterogeneous and irregular. Atherosclerotic changes of the left internal carotid artery without hemodynamically significant Doppler findings. <50% stenosis. Lt External Carotid Artery: Patent left external carotid artery with evidence of atherosclerotic disease present. Lt Vertebral Artery: The left vertebral artery is patent with antegrade flow. Comments: Unable to visualize the inflow and anastomosis of ascending aorta to right subclavian bypass graft due to ultrasound limitations. Rt Mid Graft 58 cm/s Rt Distal Graft 77 cm/s Rt Prox Graft 49 cm/s Rt Mid Graft 48 cm/s Rt Distal Graft 48 cm/s. CONCLUSIONS: 1. The outflow of ascending aorta to right subclavian and right carotid artery bypass grafts are patent. 2. The left internal carotid artery disease is consistent with a less than 50% stenosis. 3. No evidence of hemodynamically significant stenosis in the left common carotid artery. 4. Diminished flow in the right vertebral artery, may indicate more proximal stenosis. 5. Normal, antegrade flow is noted in the left vertebral artery. HISTORY: Redo sternotomy, ascending aorta to right subclavian and right carotid artery (PTFE) bypass HTN, DM, HLD, CAD, Stroke. PREVIOUS STUDIES: Previous carotid ultrasound on 09/26/24 (pre-op). DISCLAIMER: The study images and the final [...] that is provided above. Electronically Signed By: Ferny Echavarria MD [facility] [phone] 03/06/2025 2:50:41 PM ASSEMBLER STEAM AND GAS [facility] Procedure Note Ferny Echavarria MD - 03/06/2025 [facility] - Department of Vascular Surgery,Vascular Laboratory [address] [place] [address] Carotid Duplex Ultrasound Report Patient Name: GABBI HOBSON : 1955 (69y 5m) Study Date: 03/05/2025 2:55:54 PM Sex: F Tech: Ori DAY [facility] Provider: GERARDO MELISSA Quality: Adequate Order Provider: GERARDO MELISSA PROCEDURES: Carotid Report: Carotid duplex examination of the extracranial arterieswas performed using 2D, color and spectral Doppler. INDICATIONS: [id number] Encounter for surgical aftercare following surgery on thecirculatory system. MEASUREMENTS: Right Value Units Left Value Units RT Prox ICA PSV 41 cm/sec LT Prox CCA PSV 148 cm/sec RT Prox ICA EDV 11 cm/sec LT Prox CCA EDV 32 cm/sec RT Mid ICA PSV 55 cm/sec LT Distal CCA PSV 88 cm/sec RT Mid ICA EDV 22 cm/sec LT Distal CCA EDV 22 cm/sec RT Distal ICA PSV 74 cm/sec LT Prox ICA PSV 108 cm/sec RT Distal ICA EDV 27 cm/sec LT Prox ICA EDV 32 cm/sec RT VERT PSV 36 cm/sec LT Mid ICA PSV 125 cm/sec LT Mid ICA EDV 37 cm/sec LT Distal ICA PSV 85 cm/sec LT Distal ICA EDV 19 cm/sec LT ECA Prx PSV 101 cm/sec LT ICA/CCA 1.42 ratio LT VERT PSV 88 cm/sec FINDINGS: Performing Trader: Ashlee Day RVT. Rt Common Carotid Artery: The outflow of ascending aorta to rightsubclavian and right carotid artery bypass grafts are patent. Rt Vertebral Artery: Diminished flow in the right vertebral artery, mayindicate more proximal stenosis. Lt Common Carotid Artery: The plaque in the left CCA appears to beheterogeneous and irregular. Atherosclerotic changes of the left common carotid artery withno hemodynamically significant Doppler findings. Lt Internal Carotid Artery: The plaque in the left internal carotid arteryappears to be heterogeneous and irregular. Atherosclerotic changes of the left internalcarotid artery without hemodynamically significant Doppler findings. <50% stenosis. Lt External Carotid Artery: Patent left external carotid artery withevidence of atherosclerotic disease present. Lt Vertebral Artery: The left vertebral artery is patent with antegradeflow. Comments: Unable to visualize the inflow and anastomosis of ascendingaorta to right subclavian bypass graft due to ultrasound limitations. Rt Mid Graft 58 cm/s Rt Distal Graft 77 cm/s Rt Prox Graft 49 cm/s Rt Mid Graft 48 cm/s Rt Distal Graft 48 cm/s. CONCLUSIONS: 1. The outflow of ascending aorta to right subclavian and right carotidartery bypass grafts are patent. 2. The left internal carotid artery disease is consistent with a less than50% stenosis. 3. No evidence of hemodynamically significant stenosis in the left commoncarotid artery. 4. Diminished flow in the right vertebral artery, may indicate moreproximal stenosis. 5. Normal, antegrade flow is noted in the left vertebral artery. HISTORY: Redo sternotomy, ascending aorta to right subclavian and right carotidartery (PTFE) bypass HTN, DM, HLD, CAD, Stroke. PREVIOUS STUDIES: Previous carotid ultrasound on 09/26/24 (pre-op). DISCLAIMER: The study images and the final report will be retained in the patientchart by the Vascular Laboratory for the legally required time period. This chartconstitutes the legal record of any testing performed. ATTESTATION: I have reviewed and interpreted the pertinent images and measurements ofthis study. I attest to the conclusions in the final report that is provided above. Electronically Signed By: Ferny Echavarria MD [facility] [phone] 03/06/2025 2:50:41 PM [employer] us Gerardo Melissa MD IMG US PROCEDURES Final Resul t * POCT glucose (02/07/2025 11:22 AM CDT) Glucose, POC 110 70 - 199 mg/dL Blood 02/07/2025 11:2 2 AM CDT 02/07/2025 11:22 AM CDT us Gerardo Melissa MD LAB POCT ORDERABLES - DEVICE Final Result Performing Organization Address [facility]/ZIP Co de Phone Number [facility]ST[facility] [place] [address] * POCT glucose (02/07/2025 8:44 AM CDT) Glucose, POC 100 70 - 199 mg/dL Blood 02/07/2025 8:44 AM CDT 02/07/2025 8:44 AM CDT us Gerardo Melissa MD LAB POCT ORDERABLES - DEVICE Final Result Performing Organization Address City/[facility] Co de Phone Number K[facility]STIE [facility] [place] [address] * eGFR (02/07/2025 5:47 AM CDT) eGFR 81 >=60 mL/min/1. 73 [...] CDT 02/07/2025 6:18 AM CDT Gisella Wilkinson AUDIO VISUAL AIDS DIRECTOR LAB BLOOD ORDERABLES Final Re sult [facility] Department [place] [address] * (ABNORMAL) Differential, auto (02/07/2025 5:47 AM CDT) Neutrophil abs 10.23(H) 1.50 - 6.50 K/cumm Imm gran abs 0.57(H) 0.00 - 0.10 K/cumm [facility] Lymphocyte abs 2.77 0.80 - 3.30 K/cumm [facility] Monocyte abs 1.27(H) 0.20 - 0.80 K/cumm [facility] Eosinophil abs 0.40 0.00 - 0.50 K/cumm [facility] Basophil abs 0.08 0.00 - 0.10 K/cumm [facility] Neutrophil pct 66.8 % [facility] Comment: Interpretive Data Percent cell count reference ranges are not reported, since discordance with absolute values may lead to misinterpretation of CBC data. Current Interpretive Data was last revised on 2017. Imm gran pct 3.7 % [facility] Comment: Interpretive Data Percent cell count reference ranges are not reported, since discordance with absolute values may lead to misinterpretation of CBC data. Current Interpretive Data was last revised on 2017. Lymphocyte pct 18.1 % [facility] Comment: Interpretive Data Percent cell count reference ranges are not reported, since discordance with absolute values may lead to misinterpretation of CBC data. Current Interpretive Data was last revised on 2017. Monocyte pct 8.3 % [facility] Comment: Interpretive Data Percent cell count reference ranges are not reported, since discordance with absolute values may lead to misinterpretation of CBC data. Current Interpretive Data was last revised on 2017. Eosinophil pct 2.6 % [facility] Comment: Interpretive Data Percent cell count reference ranges are not reported, since discordance with absolute values may lead to misinterpretation of CBC data. Current Interpretive Data was last revised on 2017. Basophil pct 0.5 % [facility] Comment: Interpretive Data Percent cell count reference ranges are not reported, since discordance with absolute values may lead to misinterpretation of CBC data. Current Interpretive Data was last revised on 2017. Blood 02/07/2025 5:47 AM CDT 02/07/2025 6:25 AM CDT Gisella Wilkinson LAB BLOOD ORDERABLES Final Re sult Performing Organization Address [facility] Co de Phone Number [facility] Department [place] [address] * Calcium, ionized (02/07/2025 5:47 AM CDT) Calcium, Ionized 4.50 4.50 - 5.10 mg/dL Blood 02/07/2025 5:47 AM CDT 02/07/2025 6:18 AM CDT Gisella Burnett AUDIO VISUAL AIDS DIRECTOR LAB BLOOD ORDERABLES Final Re sult [facility] [place] [address] * (ABNORMAL) CBC with auto differential (02/07/2025 5:47 AM CDT) WBC 15.32(H) 3.80 - 9.90 K/cumm Hgb 7.7(L) 11.9 - 15.5 g/dL [facility] Hct 23.3(L) 35.6 - 45.5 % [facility] Plt 432(H) 150 - 400 K/cumm [facility] MPV 9.7 9.1 - 12.3 fL [facility] RBC 2.60(L) 3.90 - 5.20 M/cumm [facility] MCV 89.6 81.3 - 96.4 fL [facility] MCH 29.6 27.1 - 33.3 pg [facility] MCHC 33.0 32.3 - 35.7 g/dL [facility] RDW CV 17.3(H) 11.1 - 14.9 % [facility] RDW SD 53.5(H) 35.7 - 48.1 fL [facility] NRBC abs 0.04(H) 0.00 - 0.01 K/cumm [facility] Blood 02/07/2025 5:47 AM CDT 02/07/2025 6:25 AM CDT Gisella Wilkinson AUDIO VISUAL AIDS DIRECTOR LAB BLOOD ORDERABLES Final Re sult [facility] Department [place] [address] * Type and screen (02/07/2025 5:47 AM CDT) ABO Rh B Positive Taiwo, indirect Negative [facility] Blood 02/07/2025 5:47 AM CDT 02/07/2025 6:26 AM CDT Narrative [facility] - 02/07/2025 7:29 AM CDT Has the patient had Daratumumab or Isatuximab in the past 6 months?->Unknown Yesh Mayelin Birmingham AUDIO VISUAL AIDS DIRECTOR LAB BLOOD BANK TEST ORDERAB LES Final Result Performing Organization Address City/[facility]/ZIP Co de Phone Number [facility] Department [place] [address] * Basic metabolic panel (02/07/2025 5:47 AM CDT) [facility] Sodium 138 135 - 145 mmol/L Potassium, pl 3.4 3.3 - 4.9 mmol/L [facility] Chloride 101 97 - 110 mmol/L [facility] CO2 28 22 - 32 mmol/L [facility] Anion gap 9 2 - 15 mmol/L [facility] BUN 14 6 - 25 mg/dL [facility] Creatinine 0.79 0.60 - 1.10 mg/dL [facility] Glucose 97 70 - 199 mg/dL [facility] Comment: Interpretive Data Fasting glucose [...] 2022. Calcium 8.6 8.5 - 10.3 mg/dL [facility] Blood 02/07/2025 5:47 AM CDT 02/07/2025 6:18 AM CDT us Gisella Wilkinson AUDIO VISUAL AIDS DIRECTOR LAB BLOOD ORDERABLES Final Re sult Performing Organization Address [facility]/ZIP Co de Phone Number [facility] Department [place] [address] * [place] Modified Barium Swallow W Video [...] it. Electronically signed by: Jeovany Devi M.D. Laurel Kaminski NP IMG FLUOROSCOPY PROCED URES Final Result * PET TECHNOLOGIST Evaluate and Treat (VFSS) (02/06/2025 1:24 PM CDT) Narrative Darlene Mcconnell SLP - 02/06/2025 1:24 PM CDT Darlene Mcconnell SLP 02/06/2025 3:38 PM Speech-Language Pathology: Videofluoroscopic Study [...] (10mm Gelweave) & R carotid artery (8mm [place] PTFE) bypass & R carotid endarterectomy - 01/29: 1u PRBC, 1u PLT, no cuff leak. PPI BID - 01/30: extubated PET TECHNOLOGIST hx: 07/26/24 CSE recommended regular/thin Respiratory/Intubation Status:intubated 01/28-01/30, now on 3L Imaging: CXR 01/31: Increased left-sided pleural effusion with associated atelectasis. Precautions: Fall Current Diet Order: Regular diet, [place] thick liquids Baseline Diet: Regular diet, Thin liquids General Information Gabbi Hobson 02/06/25 PET TECHNOLOGIST Received On: 02/06/25 General Observations: Pt alert [...] is appropriate for advancing liquids. No further PET TECHNOLOGIST indicated. Assessment Details & Results Purpose and [...] at 90 degrees. Consistencies Administered: Thin liquids, [place] thickened liquids, Purees, Solids Administered consistencies contain barium product. Thin Liquids: Laryngeal Penetration: Present Aspiration Present: No Penetration Aspiration Scale-Thin: 2-Material enters the airway, remains above the vocal folds and is ejected from the airway [place] Thickened Liquids: Laryngeal Penetration: Present Aspiration Present: No Penetration Aspiration Scale-[place]: 2-Material enters the airway, remains above the [...] treatment goals and details, if indicated. Plan PET TECHNOLOGIST Frequency of Services during current admission: 0 PET TECHNOLOGIST Recommendation (Add'l Services): No further PET TECHNOLOGIST indicated Next Visit Plan: No further ST warranted Additional Referrals: None Discharge Summary Statement If this is the last swallow therapy visit, this serves as the discharge summary. Laurel Kaminski AUDIO VISUAL AIDS DIRECTOR PET TECHNOLOGIST ORDERABLES Final Result * eGFR (02/06/2025 2:38 [...] 2:38 AM CDT 02/06/2025 3:37 AM CDT Lucy Haas NP LAB BLOOD ORDERABLES Final Res ult [facility] Department of Laboratories [place], [place] [id number] * (ABNORMAL) Calcium, ionized (02/06/2025 2:38 AM CDT) [facility] Calcium, Ionized 4.21(L) 4.50 - 5.10 mg/dL Blood 02/06/2025 2:38 AM CDT 02/06/2025 3:28 AM CDT Lucy Haas AUDIO VISUAL AIDS DIRECTOR LAB BLOOD ORDERABLES Final Res ult Performing Organization Address City/[facility]/ZIP Co de Phone Number [facility] Department [place] [address] * Lactate, whole blood (02/06/2025 2:38 AM CDT) [facility] Lactate, bld 0.9 0.7 - 2.0 mmol/L Blood 02/06/2025 2:38 AM CDT 02/06/2025 3:27 AM CDT Gerardo Melissa MD LAB BLOOD ORDERABLES Final Re sult Performing Organization Address City/[facility]/ZIP Co de Phone Number [facility] Department [place] [address] * (ABNORMAL) CBC without differential (02/06/2025 2:38 AM CDT) [facility] WBC 13.18(H) 3.80 - 9.90 K/cumm Hgb 7.7(L) 11.9 - 15.5 g/dL [facility] Hct 23.0(L) 35.6 - 45.5 % [facility] Plt 339 150 - 400 K/cumm [facility] MPV 10.1 9.1 - 12.3 fL [facility] RBC 2.59(L) 3.90 - 5.20 M/cumm [facility] MCV 88.8 81.3 - 96.4 fL [facility] MCH 29.7 27.1 - 33.3 pg [facility] MCHC 33.5 32.3 - 35.7 g/dL [facility] RDW CV 16.7(H) 11.1 - 14.9 % [facility] RDW SD 51.5(H) 35.7 - 48.1 fL [facility] NRBC abs 0.04(H) 0.00 - 0.01 K/cumm [facility] Blood 02/06/2025 2:38 AM CDT 02/06/2025 3:35 AM CDT Gerardo Melissa MD LAB BLOOD ORDERABLES Final Re sult Performing Organization Address City/[facility] Co de Phone Number [facility] Department [place] [address] * Basic metabolic panel (02/06/2025 2:38 AM CDT) Pathologist [facility] Sodium 139 135 - 145 mmol/L Potassium, pl 3.6 3.3 - 4.9 mmol/L [facility] Chloride 102 97 - 110 mmol/L [facility] CO2 28 22 - 32 mmol/L [facility] Anion gap 9 2 - 15 mmol/L [facility] BUN 17 6 - 25 mg/dL [facility] Creatinine 0.80 0.60 - 1.10 mg/dL [facility] Glucose 104 70 - 199 mg/dL [facility] Comment: Interpretive Data Fasting glucose [...] 2022. Calcium 8.5 8.5 - 10.3 mg/dL [facility] Blood 02/06/2025 2:38 AM CDT 02/06/2025 3:28 AM CDT Lucy Haas AUDIO VISUAL AIDS DIRECTOR LAB BLOOD ORDERABLES Final Res ult Performing Organization Address [facility]/[place] [address] * POCT glucose (02/05/2025 6:03 PM CDT) Glucose, POC 150 70 - 199 mg/dL Blood 02/05/2025 6:03 PM CDT 02/05/2025 6:03 PM CDT us Gerardo Melissa MD LAB POCT ORDERABLES - DEVICE Final Result Performing Organization Address [facility] [place] [address] * POCT glucose (02/05/2025 11:20 AM CDT) Glucose, POC 117 70 - 199 mg/dL Blood 02/05/2025 11:2 0 AM CDT 02/05/2025 11:20 AM CDT us Gerardo Melissa MD LAB POCT ORDERABLES - DEVICE Final Result Performing Organization Address [facility] [place] [address] * POCT glucose (02/05/2025 9:00 AM CDT) Glucose, POC 121 70 - 199 mg/dL Comment:Glu2: RN/MD Notified Glucose comment 1 Glu2: RN/MD Notified [facility] Blood 02/05/2025 9:00 AM CDT 02/05/2025 9:00 AM CDT us Gerardo Melissa MD LAB POCT ORDERABLES - DEVICE Final Result Performing Organization Address City/[facility]/ZIP Co de Phone Number [facility] [place] [address] * eGFR (02/05/2025 5:54 AM CDT) eGFR [...] CDT 02/05/2025 6:06 AM CDT Lucy Haas AUDIO VISUAL AIDS DIRECTOR LAB BLOOD ORDERABLES Final Res ult Performing Organization Address City/[facility]/ZIP Co de Phone Number [facility] [place] [address] * (ABNORMAL) Calcium, ionized (02/05/2025 5:54 AM CDT) Calcium, Ionized 4.48(L) 4.50 - 5.10 mg/dL Blood 02/05/2025 5:54 AM CDT 02/05/2025 6:06 AM CDT Lucy Alcala [facility] LAB BLOOD ORDERABLES Final Res ult [facility] [place] [address] * Lactate, whole blood (02/05/2025 5:54 AM CDT) [facility] Lactate, bld 0.9 0.7 - 2.0 mmol/L Blood 02/05/2025 5:54 AM CDT 02/05/2025 6:04 AM CDT us Gerardo Melissa MD LAB BLOOD ORDERABLES Final Re sult Performing Organization Address [facility] Co de Phone Number [facility] Department [place] [address] * Lidocaine level (02/05/2025 5:54 AM CDT) [facility] Lidocaine (Xylocaine) 2.1 1.5 - 5.0 mcg/mL Blood 02/05/2025 5:54 AM CDT 02/05/2025 6:06 AM CDT Narrative [facility] - 02/05/2025 6:36 AM CDT Draw 24 hours after infusion started. us Gerardo Melissa MD LAB BLOOD ORDERABLES Final Re sult Performing Organization Address [facility] Co de Phone Number [facility] Department [place] [address] * (ABNORMAL) CBC without differential (02/05/2025 5:54 AM CDT) [facility] WBC 13.03(H) 3.80 - 9.90 K/cumm Hgb 8.1(L) 11.9 - 15.5 g/dL [facility] Hct 24.1(L) 35.6 - 45.5 % [facility] Plt 321 150 - 400 K/cumm [facility] MPV 10.2 9.1 - 12.3 fL [facility] RBC 2.72(L) 3.90 - 5.20 M/cumm [facility] MCV 88.6 81.3 - 96.4 fL [facility] MCH 29.8 27.1 - 33.3 pg [facility] MCHC 33.6 32.3 - 35.7 g/dL [facility] RDW CV 16.8(H) 11.1 - 14.9 % [facility] RDW SD 51.5(H) 35.7 - 48.1 fL [facility] NRBC abs 0.04(H) 0.00 - 0.01 K/cumm [facility] Blood 02/05/2025 5:54 AM CDT 02/05/2025 6:06 AM CDT us Gerardo Melissa MD LAB BLOOD ORDERABLES Final Re sult [facility] Department [place] [address] * Basic metabolic panel (02/05/2025 5:54 AM CDT) Sodium 139 135 - 145 mmol/L Potassium, pl 3.6 3.3 - 4.9 mmol/L [facility] Chloride 99 97 - 110 mmol/L [facility] CO2 29 22 - 32 mmol/L [facility] Anion gap 11 2 - 15 mmol/L [facility] BUN 21 6 - 25 mg/dL [facility] Creatinine 0.79 0.60 - 1.10 mg/dL [facility] Glucose 118 70 - 199 mg/dL [facility] Comment: Interpretive Data Fasting glucose [...] 2022. Calcium 8.7 8.5 - 10.3 mg/dL [facility] Blood 02/05/2025 5:54 AM CDT 02/05/2025 6:06 AM CDT Lucy Haas AUDIO VISUAL AIDS DIRECTOR LAB BLOOD ORDERABLES Final Res ult Performing Organization Address [facility]/ZIP Co de Phone Number [place] [address] * POCT glucose (02/04/2025 5:43 PM CDT) Glucose, POC 130 70 - 199 mg/dL Blood 02/04/2025 5:43 PM CDT 02/04/2025 5:43 PM CDT Gerardo Melissa MD LAB POCT ORDERABLES - DEVICE Final Result Performing Organization Address [facility] Co de Phone Number [facility] [place] [address] * POCT glucose (02/04/2025 12:25 PM CDT) Glucose, POC 155 70 - 199 mg/dL Blood 02/04/2025 12:2 5 PM CDT 02/04/2025 12:25 PM CDT Gerardo Melissa MD LAB POCT ORDERABLES - DEVICE Final Result Performing Organization Address [facility] Co de Phone Number [facility] [place] [place] [address] * Lidocaine level (02/04/2025 10:12 AM CDT) Lidocaine (Xylocaine) 2.7 1.5 - 5.0 mcg/mL Blood 02/04/2025 10:1 2 AM CDT 02/04/2025 10:50 AM CDT Narrative [facility] - 02/04/2025 11:23 AM CDT Draw 24 hours after infusion started. us Rey Marrufo MD PhD LAB BLOOD ORDERABLES Final Result Performing Organization Address [facility] Co de Phone Number [place] [address] * POCT glucose (02/04/2025 8:28 AM CDT) Glucose, POC 114 70 - 199 mg/dL Blood 02/04/2025 8:28 AM CDT 02/04/2025 8:28 AM CDT Gerardo Melissa MD LAB POCT ORDERABLES - DEVICE Final Result Performing Organization Address [facility] de Phone Number [place] [address] * POCT glucose (02/04/2025 4:07 AM CDT) Glucose, POC 115 70 - 199 mg/dL Blood 02/04/2025 4:07 AM CDT 02/04/2025 4:07 AM CDT Gerardo Melissa MD LAB POCT ORDERABLES - DEVICE Final Result Performing Organization Address [facility] Co de Phone Number [facility] [place] [address] * Potassium, whole blood (02/04/2025 1:13 AM CDT) Potassium, bld 3.5 3.3 - 4.9 mmol/L Blood 02/04/2025 1:13 AM CDT 02/04/2025 1:23 AM CDT Kenny Birmingham NP LAB BLOOD ORDERABLES Final Result Performing Organization Address City/[facility]/ZIP Co de Phone Number [facility] [place] [address] * eGFR (02/04/2025 1:13 AM CDT) eGFR [...] CDT 02/04/2025 1:23 AM CDT Lucy Haas AUDIO VISUAL AIDS DIRECTOR LAB BLOOD ORDERABLES Final Res ult Performing Organization Address City/[facility]/ZIP Co de Phone Number [facility] [place] [address] * (ABNORMAL) Calcium, ionized (02/04/2025 1:13 AM CDT) Calcium, Ionized 4.46(L) 4.50 - 5.10 mg/dL Blood 02/04/2025 1:13 AM CDT 02/04/2025 1:23 AM CDT Lucy Alcala [facility] LAB BLOOD ORDERABLES Final Res ult [facility] [place] [address] * Lactate, whole blood (02/04/2025 1:13 AM CDT) [facility] Lactate, bld 1.0 0.7 - 2.0 mmol/L Blood 02/04/2025 1:13 AM CDT 02/04/2025 1:23 AM CDT Gerardo Melissa MD LAB BLOOD ORDERABLES Final Re sult [facility] [place] [address] * Lidocaine level (02/04/2025 1:13 AM CDT) [facility] Lidocaine (Xylocaine) 2.3 1.5 - 5.0 mcg/mL Blood 02/04/2025 1:13 AM CDT 02/04/2025 1:25 AM CDT Narrative [facility] - 02/04/2025 1:54 AM CDT Draw 24 hours after infusion started. Rey Marrufo MD PhD LAB BLOOD ORDERABLES Final Result Performing Organization Address City/[facility]/ZIP Co de Phone Number [facility] [place] [address] * (ABNORMAL) CBC without differential (02/04/2025 1:13 AM CDT) [facility] WBC 14.36(H) 3.80 - 9.90 K/cumm Hgb 7.8(L) 11.9 - 15.5 g/dL [facility] [facility] Hct 23.1(L) 35.6 - 45.5 % [facility] Plt 248 150 - 400 K/cumm [facility] MPV 10.5 9.1 - 12.3 fL [facility] RBC 2.60(L) 3.90 - 5.20 M/cumm [facility] MCV 88.8 81.3 - 96.4 fL [facility] MCH 30.0 27.1 - 33.3 pg [facility] MCHC 33.8 32.3 - 35.7 g/dL [facility] RDW CV 17.0(H) 11.1 - 14.9 % [facility] RDW SD 53.2(H) 35.7 - 48.1 fL [facility] NRBC abs 0.07(H) 0.00 - 0.01 K/cumm [facility] Blood 02/04/2025 1:13 AM CDT 02/04/2025 1:25 AM CDT us Gerardo Melissa MD LAB BLOOD ORDERABLES Final Re sult [facility] [place] [place] [address] * Type and screen (02/04/2025 1:13 AM CDT) ABO Rh B Positive Taiwo, indirect Negative [facility] Blood 02/04/2025 1:13 AM CDT 02/04/2025 1:27 AM CDT Narrative [facility] - 02/04/2025 2:19 AM CDT Has the patient had Daratumumab or Isatuximab in the past 6 months?->Unknown us Yesh Mayelin Birmingham NP LAB BLOOD BANK TEST ORDERAB LES Final Result Performing Organization Address [facility]/ZIP Co de Phone Number [facility] [place] [address] * Phosphorus (02/04/2025 1:13 AM CDT) Phosphorus, pl 2.8 2.3 - 4.5 mg/dL Blood 02/04/2025 1:13 AM CDT 02/04/2025 1:23 AM CDT us Yesh Mayelin Birmingham NP LAB BLOOD ORDERABLES Final Result Performing Organization Address City/[facility]/ZIP Co de Phone Number [facility] [place] [address] * Magnesium (02/04/2025 1:13 AM CDT) [facility] Magnesium 2.2 1.4 - 2.5 mg/dL Blood 02/04/2025 1:13 AM CDT 02/04/2025 1:23 AM CDT us Yesh Mayelin Birmingham AUDIO VISUAL AIDS DIRECTOR LAB BLOOD ORDERABLES Final Result [facility] [place] [place] [address] * (ABNORMAL) Basic metabolic panel (02/04/2025 1:13 AM CDT) [facility] Sodium 138 135 - 145 mmol/L Potassium, pl 3.6 3.3 - 4.9 mmol/L [facility] Chloride 98 97 - 110 mmol/L [facility] CO2 30 22 - 32 mmol/L [facility] Anion gap 10 2 - 15 mmol/L [facility] BUN 27(H) 6 - 25 mg/dL [facility] Creatinine 0.91 0.60 - 1.10 mg/dL [facility] Glucose 121 70 - 199 mg/dL [facility] Comment: Interpretive Data Fasting glucose [...] 2022. Calcium 9.0 8.5 - 10.3 mg/dL [facility] Blood 02/04/2025 1:13 AM CDT 02/04/2025 1:23 AM CDT Lucy Haas AUDIO VISUAL AIDS DIRECTOR LAB BLOOD ORDERABLES Final Res [place] [address] * POCT glucose (02/03/2025 11:57 PM CDT) Glucose, POC 134 70 - 199 mg/dL Blood 02/03/2025 11:5 7 PM CDT 02/03/2025 11:57 PM CDT Gerardo Melissa MD LAB POCT ORDERABLES - DEVICE Final Result Performing Organization Address [facility] Co de Phone Number [place] [address] * POCT glucose (02/03/2025 9:22 PM CDT) Glucose, POC 113 70 - 199 mg/dL Blood 02/03/2025 9:22 PM CDT 02/03/2025 9:22 PM CDT us Gerardo Melissa MD LAB POCT ORDERABLES - DEVICE Final Result Performing Organization Address City/[facility]/ZIP Co de Phone Number [facility] [place] [address] * POCT glucose (02/03/2025 7:46 PM CDT) Glucose, POC 165 70 - 199 mg/dL Blood 02/03/2025 7:46 PM CDT 02/03/2025 7:46 PM CDT us Gerardo Melissa MD LAB POCT ORDERABLES - DEVICE Final Result [facility] [address] * POCT glucose (02/03/2025 6:19 PM CDT) Glucose, POC 117 70 - 199 mg/dL Comment:Glu2: RN/MD Notified Glucose comment 1 Glu2: RN/MD Notified [facility] Blood 02/03/2025 6:19 PM CDT 02/03/2025 6:19 PM CDT Gerardo Melissa MD LAB POCT ORDERABLES - DEVICE Final Result [facility] [place] [address] * (ABNORMAL) Urinalysis reflex to microscopic and culture Urine (02/03/2025 2:31 PM CDT) Color, ur Straw Yellow Clarity, ur Clear Clear [facility] Specific gravity, ur 1.017 1.003 - 1.030 [facility] pH, urine 6.0 [facility] Comment: Interpretive Data U rine pH is affected by diet, medications, systemic acid-base disturbances, and renal tubular function. pH may affect urinary stone formation. For example, urine pH below 6.0 may help reduce the tendency for calcium phosphate stones and pH greater than 6.0 may reduce the tendency for uric acid stone formation. Source: [facility] Laboratories Current Interpretive Data was last revised on 2017 Protein, ur ql Negative Negative [facility] Glucose, ur ql Negative Negative [facility] Ketones, ur Negative Negative [facility] Bilirubin, ur Negative Negative [facility] Blood, ur Negative Negative [facility] Urobilinogen, ur <2.0 <2.0 mg/dL [facility] Nitrite, ur Positive(A) Negative [facility] Leukocyte esterase, ur 3+(A) Negative [facility] UA reflex comment Reflex to microscopic UA will be performed. [facility] Urine 02/03/2025 2:31 PM CDT 02/03/2025 3:24 PM CDT Gerardo Melissa MD LAB MICROBIOLOGY - GENERAL OR DERABLES Final Result [facility] [place] [address] * (ABNORMAL) Urinalysis, microscopic only (02/03/2025 2:31 PM CDT) WBC, ur 21-50(A) 0 - 5 /HPF RBC, ur 0-2 0 - 2 /HPF [facility] Epithelial cells, squamous, ur 1-5 0 - 5 /HPF [facility] Bacteria, ur Trace(A) [facility] Mucous, ur Present(A) [facility] Hyaline casts, ur 6-10 0 - 10 /LPF [facility] Culture Reflex Comment Reflex to urine culture will be performed. [facility] Urine 02/03/2025 2:31 PM CDT 02/03/2025 3:24 PM CDT Gerardo Melissa MD LAB URINE ORDERABLES Final Re sult Performing Organization Address [facility]/ZIP Co de Phone Number [facility] [place] [address] * (ABNORMAL) Urine culture Urine (02/03/2025 2:31 PM CDT) Report Final Report: Greater than or equal to 100,000 colonies/mL of Enterobacter cloacae complex (.) Organism ENTEROBACTER CLOACAE COMPLEX [facility] Urine 02/03/2025 2:31 PM CDT 02/03/2025 5:48 PM CDT Narrative [facility] - 02/05/2025 9:55 AM CDT Urine culture reflexed based upon urinalysis results. Testing performed by [facility] Microbiology Laboratory ([phone]) Organism Antibiotic Method Susceptibility Enterobacter cloacae complex [...] Resistant Enterobacter cloacae complex Piperacillin/Tazobactam INTERPRETATION Resistant us Gerardo Melissa MD LAB MICROBIOLOGY - GENERAL OR DERABLES Final Result Performing Organization Address [facility] Co de Phone Number [facility] [place] [address] * Lidocaine level (02/03/2025 12:37 PM CDT) Pathologist [facility] Lidocaine (Xylocaine) 1.9 1.5 - 5.0 mcg/mL Blood 02/03/2025 12:3 7 PM CDT 02/03/2025 1:32 PM CDT Narrative [facility] - 02/03/2025 2:01 PM CDT Draw 24 hours after infusion started. Rey Marrufo MD PhD LAB BLOOD ORDERABLES Final Result Performing Organization Address [facility] Co de Phone Number [facility] [place] [place] [address] * POCT glucose (02/03/2025 11:49 AM CDT) Pathologist [facility] Glucose, POC 147 70 - 199 mg/dL Comment:Glu2: RN/MD Notified Glucose comment 1 Glu2: RN/MD Notified [facility] Blood 02/03/2025 11:4 9 AM CDT 02/03/2025 11:49 AM CDT us Gerardo Melissa MD LAB POCT ORDERABLES - DEVICE Final Result Performing Organization Address [facility] Co de Phone Number [facility] [place] [address] * POCT glucose (02/03/2025 8:08 AM CDT) Glucose, POC 125 70 - 199 mg/dL Comment:Glu2: RN/MD Notified Glucose comment 1 Glu2: RN/MD Notified [facility] Blood 02/03/2025 8:08 AM CDT 02/03/2025 8:08 AM CDT Gerardo Melissa MD LAB POCT ORDERABLES - DEVICE Final Result [facility] Department [place] [address] * Blood culture Blood (02/03/2025 5:06 AM CDT) Report Final Report: No growth Blood 02/03/2025 5:06 AM CDT 02/03/2025 5:45 AM CDT Narrative [facility] - 02/07/2025 7:00 AM CDT Collection->Peripheral 1. [...] performance characteristics have been verified by the [facility] Microbiology Laboratory. For questions about this culture, contact the Microbiology Laboratory at [phone]. Interpretive data was last revised on 24. Luisito Tony MD LAB MICROBIOLOGY - GENERAL ORDER YEMI Final Result [facility]STIE POPE Marjan [facility] Department [place] [address] * Blood culture Blood (02/03/2025 5:06 AM CDT) Report Final Report: No growth Blood 02/03/2025 5:06 AM CDT 02/03/2025 5:45 AM CDT Narrative [facility] - 02/07/2025 7:00 AM CDT Collection->Peripheral 1. [...] performance characteristics have been verified by the [facility]biology [facility]. For questions about this culture, contact the Microbiology Laboratory at [phone]. Interpretive data was last revised on 24. Luisito Tony MD LAB MICROBIOLOGY - GENERAL ORDER YEMI Final Result Performing Organization Address City/[facility]/ZIP Co de Phone Number KRISTIE Phillip [facility] Department [place] [address] * POCT glucose (02/03/2025 3:58 AM CDT) Glucose, POC 133 70 - 199 mg/dL Blood 02/03/2025 3:58 AM CDT 02/03/2025 3:58 AM CDT us Gerardo Melissa MD LAB POCT ORDERABLES - DEVICE Final Result Performing Organization Address City/[facility] Co de Phone Number [facility] [place] [address] * Potassium, whole blood (02/03/2025 3:46 AM CDT) Pathologist [facility] Potassium, bld 3.9 3.3 - 4.9 mmol/L Blood 02/03/2025 3:46 AM CDT 02/03/2025 3:58 AM CDT us Yesh Mayelin Birmingham NP LAB BLOOD ORDERABLES Final Result Performing Organization Address [facility] de Phone Number [facility] [place] [address] * eGFR (02/03/2025 3:46 AM CDT) [facility] eGFR 62 >=60 mL/min/1. 73 m2 Comment: [...] CDT 02/03/2025 4:05 AM CDT Lucy Haas AUDIO VISUAL AIDS DIRECTOR LAB BLOOD ORDERABLES Final Res ult Performing Organization Address [facility] Co de Phone Number [facility] [place] [place] [address] * (ABNORMAL) Calcium, ionized (02/03/2025 3:46 AM CDT) Calcium, Ionized 4.43(L) 4.50 - 5.10 mg/dL Blood 02/03/2025 3:46 AM CDT 02/03/2025 3:58 AM CDT Lucy Haas AUDIO VISUAL AIDS DIRECTOR LAB BLOOD ORDERABLES Final Res ult Performing Organization Address [facility] de Phone Number [facility] [place] [address] * Lactate, whole blood (02/03/2025 3:46 AM CDT) Lactate, bld 1.0 0.7 - 2.0 mmol/L Blood 02/03/2025 3:46 AM CDT 02/03/2025 3:58 AM CDT Gerardo Melissa MD LAB BLOOD ORDERABLES Final Re sult Performing Organization Address [facility] Co de Phone Number [place] [address] * (ABNORMAL) CBC without differential (02/03/2025 3:46 AM CDT) WBC 16.06(H) 3.80 - 9.90 K/cumm Hgb 8.1(L) 11.9 - 15.5 g/dL [facility] Hct 25.3(L) 35.6 - 45.5 % [facility] Plt 216 150 - 400 K/cumm [facility] MPV 10.8 9.1 - 12.3 fL [facility] RBC 2.83(L) 3.90 - 5.20 M/cumm [facility] MCV 89.4 81.3 - 96.4 fL [facility] MCH 28.6 27.1 - 33.3 pg [facility] MCHC 32.0(L) 32.3 - 35.7 g/dL [facility] RDW CV 17.2(H) 11.1 - 14.9 % [facility] RDW SD 54.4(H) 35.7 - 48.1 fL [facility] NRBC abs 0.14(H) 0.00 - 0.01 K/cumm [facility] Blood 02/03/2025 3:46 AM CDT 02/03/2025 4:05 AM CDT us Gerardo Melissa MD LAB BLOOD ORDERABLES Final Re sult [facility] [place] [address] * Phosphorus (02/03/2025 3:46 AM CDT) Phosphorus, pl 4.1 2.3 - 4.5 mg/dL Blood 02/03/2025 3:46 AM CDT 02/03/2025 4:05 AM CDT us Londonh Mayelin Birmingham NP LAB BLOOD ORDERABLES Final Result [place] [address] * (ABNORMAL) Magnesium (02/03/2025 3:46 AM CDT) Magnesium 2.6(H) 1.4 - 2.5 mg/dL Blood 02/03/2025 3:46 AM CDT 02/03/2025 4:05 AM CDT us Kenny Birmingham AUDIO VISUAL AIDS DIRECTOR LAB BLOOD ORDERABLES Final Result [facility] [place] [address] * (ABNORMAL) Basic metabolic panel (02/03/2025 3:46 AM CDT) [facility] Sodium 140 135 - 145 mmol/L Potassium, pl 4.0 3.3 - 4.9 mmol/L [facility] Chloride 103 97 - 110 mmol/L [facility] CO2 27 22 - 32 mmol/L [facility] Anion gap 10 2 - 15 mmol/L [facility] BUN 31(H) 6 - 25 mg/dL [facility] Creatinine 0.99 0.60 - 1.10 mg/dL [facility] Glucose 116 70 - 199 mg/dL [facility] Comment: Interpretive Data Fasting glucose [...] Calcium 9.4 8.5 - 10.3 mg/dL [facility] Blood 02/03/2025 3:46 AM CDT 02/03/2025 4:05 AM CDT us Lucy Haas AUDIO VISUAL AIDS DIRECTOR LAB BLOOD ORDERABLES Final Res ult Performing Organization Address [facility]/ZIP Co de Phone Number [facility] [place] [address] * POCT glucose (02/03/2025 12:05 AM CDT) [facility] Signature Glucose, POC 104 70 - 199 mg/dL Blood 02/03/2025 12:0 5 AM CDT 02/03/2025 12:05 AM CDT us Gerardo Melissa MD LAB POCT ORDERABLES - DEVICE Final Result [facility] [place] [address] * XR Chest 1 View - in [...] Electronically signed by: Alirio Jensen M.D. us Yesh Mayelin Birmingham AUDIO VISUAL AIDS DIRECTOR IMG XR PROCEDURES Final Res ult * POCT glucose (02/02/2025 7:01 PM CDT) [facility] Glucose, POC 163 70 - 199 mg/dL Blood 02/02/2025 7:01 PM CDT 02/02/2025 7:01 PM CDT us Gerardo Melissa MD LAB POCT ORDERABLES - DEVICE Final Result Performing Organization Address [facility] Co de Phone Number [facility] [place] [address] * Troponin I high-sensitivity (02/02/2025 6:19 PM CDT) [facility] Trop I hs 14 <=17 ng/L Comment: Interpretive Data For further hscTnI resources including the diagnostic algorithm and an aid in interpretation, copy and paste this link: [email or web address].testcatalog.org/show/[email or web address] Current Interpretive Data last revised 2019. Blood 02/02/2025 6:19 PM CDT 02/02/2025 7:21 PM CDT us Gerardo Melissa MD LAB BLOOD ORDERABLES Final Re sult Performing Organization Address [facility]/ZIP Co de Phone Number [facility] [place] [address] * eGFR (02/02/2025 6:19 PM CDT) [facility] eGFR 65 >=60 mL/min/1. 73 m2 Comment: [...] MD LAB BLOOD ORDERABLES Final Re sult [facility] Department [place] [address] * (ABNORMAL) Differential, auto (02/02/2025 6:19 PM CDT) Neutrophil abs 8.71(H) 1.50 - 6.50 K/cumm Imm gran abs 0.74(H) 0.00 - 0.10 K/cumm [facility] Lymphocyte abs 3.00 0.80 - 3.30 K/cumm [facility] Monocyte abs 2.57(H) 0.20 - 0.80 K/cumm [facility] Eosinophil abs 0.56(H) 0.00 - 0.50 K/cumm [facility] Basophil abs 0.09 0.00 - 0.10 K/cumm [facility] Neutrophil pct 55.6 % [facility] Comment: Interpretive Data Percent cell count reference ranges are not reported, since discordance with absolute values may lead to misinterpretation of CBC data. Current Interpretive Data was last revised on 2017. Imm gran pct 4.7 % [facility] Comment: Interpretive Data Percent cell count reference ranges are not reported, since discordance with absolute values may lead to misinterpretation of CBC data. Current Interpretive Data was last revised on 2017. Lymphocyte pct 19.1 % [facility] Comment: Interpretive Data Percent cell count reference ranges are not reported, since discordance with absolute values may lead to misinterpretation of CBC data. Current Interpretive Data was last revised on 2017. Monocyte pct 16.4 % [facility] Comment: Interpretive Data Percent cell count reference ranges are not reported, since discordance with absolute values may lead to misinterpretation of CBC data. Current Interpretive Data was last revised on 2017. Eosinophil pct 3.6 % [facility] Comment: Interpretive Data Percent cell count reference ranges are not reported, since discordance with absolute values may lead to misinterpretation of CBC data. Current Interpretive Data was last revised on 2017. Basophil pct 0.6 % [facility] Comment: Interpretive Data Percent cell count reference ranges are not reported, since discordance with absolute values may lead to misinterpretation of CBC data. Current Interpretive Data was last revised on 2017. Blood 02/02/2025 6:19 PM CDT 02/02/2025 6:51 PM CDT us Gerardo Melissa MD LAB BLOOD ORDERABLES Final Re sult [facility] [place] [address] * (ABNORMAL) Pro B-type natriuretic peptide (02/02/2025 [...] Heart J. 2006:27:330-337. 2. Cesar RW, Mingo AM. J. AM Luciana Cardiol: Cardiovasc Imag. 2009;2: 216- 225. Interpretive Data Last Revised Date: 2017. Blood 02/02/2025 6:19 PM CDT 02/02/2025 6:52 PM CDT us Gerardo Melissa MD LAB BLOOD ORDERABLES Final Re sult [facility] [place] [address] * (ABNORMAL) CBC with auto differential (02/02/2025 6:19 PM CDT) WBC 15.67(H) 3.80 - 9.90 K/cumm Hgb 8.1(L) 11.9 - 15.5 g/dL [facility] Hct 25.0(L) 35.6 - 45.5 % [facility] Plt 217 150 - 400 K/cumm [facility] MPV 11.2 9.1 - 12.3 fL [facility] RBC 2.77(L) 3.90 - 5.20 M/cumm [facility] MCV 90.3 81.3 - 96.4 fL [facility] MCH 29.2 27.1 - 33.3 pg [facility] MCHC 32.4 32.3 - 35.7 g/dL [facility] RDW CV 17.2(H) 11.1 - 14.9 % [facility] RDW SD 55.3(H) 35.7 - 48.1 fL [facility] NRBC abs 0.31(H) 0.00 - 0.01 K/cumm [facility] Blood 02/02/2025 6:19 PM CDT 02/02/2025 6:51 PM CDT us Gerardo Melissa MD LAB BLOOD ORDERABLES Final Re sult Performing Organization Address [facility] Co de Phone Number [facility] [place] [place] [address] * Lidocaine level (02/02/2025 6:19 PM CDT) Lidocaine (Xylocaine) 2.4 1.5 - 5.0 mcg/mL Blood 02/02/2025 6:19 PM CDT 02/02/2025 6:52 PM CDT us Gerardo Melissa MD LAB BLOOD ORDERABLES Final Re sult Performing Organization Address [facility] de Phone Number [facility] [place] [address] * Phosphorus (02/02/2025 6:19 PM CDT) Phosphorus, pl 3.8 2.3 - 4.5 mg/dL Blood 02/02/2025 6:19 PM CDT 02/02/2025 6:52 PM CDT us Gerardo Melissa MD LAB BLOOD ORDERABLES Final Re sult Performing Organization Address [facility] [place] [address] * Magnesium (02/02/2025 6:19 PM CDT) Magnesium 2.1 1.4 - 2.5 mg/dL Blood 02/02/2025 6:19 PM CDT 02/02/2025 6:52 PM CDT us Gerardo Melissa MD LAB BLOOD ORDERABLES Final Re sult [facility] [place] [address] * (ABNORMAL) Basic metabolic panel (02/02/2025 6:19 PM CDT) Pathologist [facility] Sodium 141 135 - 145 mmol/L Potassium, pl 3.7 3.3 - 4.9 mmol/L [facility] Chloride 104 97 - 110 mmol/L [facility] CO2 27 22 - 32 mmol/L [facility] Anion gap 10 2 - 15 mmol/L [facility] BUN 33(H) 6 - 25 mg/dL [facility] Creatinine 0.95 0.60 - 1.10 mg/dL [facility] Glucose 140 70 - 199 mg/dL [facility] Comment: Interpretive Data Fasting glucose [...] Calcium 9.4 8.5 - 10.3 mg/dL [facility] Blood 02/02/2025 6:19 PM CDT 02/02/2025 6:52 PM CDT Gerardo Melissa MD LAB BLOOD ORDERABLES Final Re sult Performing Organization Address City/[facility]/ZIP Co de Phone Number [facility] [place] [address] * (ABNORMAL) POCT [id number]-HCT, WB - ISTAT (02/02/2025 6:05 PM CDT) Na POC 138 135 - 145 mmol/L K POC 3.6 3.3 - 4.9 mmol/L [facility] Comment: Interpretive Data This method is not able to assess for hemolysis, which may falsely increase potassium concentrations. If further testing is needed to evaluate this result, consider in-laboratory plasma potassium. Current Interpretive Data was last revised on 2022. Glucose POC i-STAT 144 70 - 199 mg/dL [facility] Hct, POC 32.0(L) 35.6 - 45.5 % [facility] Blood 02/02/2025 6:05 PM CDT 02/02/2025 6:05 PM CDT us Gerardo Melissa MD LAB POCT ORDERABLES - DEVICE Final Result Performing Organization Address [facility] Co de Phone Number [facility] [place] [address] * (ABNORMAL) Arterial Blood gas w/Lactate POCT (02/02/2025 5:59 PM CDT) [facility] Lactate POC i-STAT 0.8 0.7 - 2.0 mmol/L pH POC 7.44 7.35 - 7.45 [facility] pCO2, Art POC 41 35 - 45 mmHg [facility] PO2 POC 82 80 - 105 mmHg [facility] CO2, total POC 29 20 - 30 mmol/L [facility] HCO3, POC 28 21 - 30 mmol/L [facility] BE POC 4(H) -2 - 3 mmol/L [facility] O2 sat POC 96 95 - 98 % [facility] Blood 02/02/2025 5:59 PM CDT 02/02/2025 5:59 PM CDT us Gerardo Melissa MD LAB BLOOD ORDERABLES Final Re sult Performing Organization Address [facility]/ZIP Co de Phone Number [facility] [place] [address] * XR Chest 1 View (02/02/2025 5:24 [...] tube in place tip terminates out of [id number]. Very small lung volumes. There is associated [...] tube in place tip terminates out of [id number]. Very small lung volumes. There is associated bilateral lower lung atelectasis. Trace bilateral pleural effusions. No pneumothorax. Dictated by: Eliana Vieira M.D. The radiology attending physician has personally reviewed this study, and had reviewed and/or edited this written report and agrees with it. Electronically signed by: Sadie Norris M.D. Gerardo Melissa MD IMG XR PROCEDURES Final Resul t * ECG 12 lead (02/02/2025 5:20 PM CDT) Ventricular Rate EKG/Min 97 BPM [facility] Atrial Rate 97 BPM [facility] TN-Interval (MSEC) 176 ms [facility] QRS-Interval (MSEC) 86 ms [facility] QT-Interval (MSEC) 326 ms [facility] QTc 414 ms [facility] P [place] 74 degrees [facility] R [place] 55 degrees [facility] T [place] 78 degrees [facility] Diagnosis Normal sinus rhythm Nonspecific ST and T wave abnormality Abnormal ECG When compared with ECG of 28-JAN-2025 18:41, (unconfirmed) QT has shortened Confirmed by Terrance Carbajal MD ([id number]) on 02/04/2025 4:21:14 PM [facility] 02/02/2025 5:20 PM CDT 02/04/2025 4:21 PM CDT us Gerardo Melissa MD ECG ORDERABLES Final Result Performing Organization Address [facility] Co de Phone Number [facility] * POCT glucose (02/02/2025 4:36 PM CDT) Glucose, POC 187 70 - 199 mg/dL Blood 02/02/2025 4:36 PM CDT 02/02/2025 4:36 PM CDT us Gerardo Melissa MD LAB POCT ORDERABLES - DEVICE Final Result Performing Organization Address [facility] Co de Phone Number [facility] [place] [address] * POCT glucose (02/02/2025 11:37 AM CDT) Glucose, POC 132 70 - 199 mg/dL Blood 02/02/2025 11:3 7 AM CDT 02/02/2025 11:37 AM CDT us Gerardo Melissa MD LAB POCT ORDERABLES - DEVICE Final Result Performing Organization Address [facility] Co de Phone Number [facility] [place] [address] * Lidocaine level (02/02/2025 9:45 AM CDT) Pathologist [facility] Lidocaine (Xylocaine) 2.3 1.5 - 5.0 mcg/mL Blood 02/02/2025 9:45 AM CDT 02/02/2025 10:04 AM CDT Narrative [facility] - 02/02/2025 10:33 AM CDT Draw 24 hours after infusion started. us Rey Marrufo MD PhD LAB BLOOD ORDERABLES Final Result Performing Organization Address City/[facility] Co de Phone Number [facility] Department [place] [address] * (ABNORMAL) CBC without differential (02/02/2025 9:45 AM CDT) [facility] WBC 14.55(H) 3.80 - 9.90 K/cumm Hgb 8.0(L) 11.9 - 15.5 g/dL [facility] Hct 24.5(L) 35.6 - 45.5 % [facility] Plt 178 150 - 400 K/cumm [facility] MPV 10.6 9.1 - 12.3 fL [facility] RBC 2.76(L) 3.90 - 5.20 M/cumm [facility] MCV 88.8 81.3 - 96.4 fL [facility] MCH 29.0 27.1 - 33.3 pg [facility] MCHC 32.7 32.3 - 35.7 g/dL [facility] RDW CV 17.2(H) 11.1 - 14.9 % [facility] RDW SD 54.4(H) 35.7 - 48.1 fL [facility] NRBC abs 0.14(H) 0.00 - 0.01 K/cumm [facility] Blood 02/02/2025 9:45 AM CDT 02/02/2025 10:04 AM CDT Gerardo Melissa MD LAB BLOOD ORDERABLES Final Re sult Performing Organization Address City/State/[facility] Co de Phone Number [facility] [place] [address] * POCT glucose (02/02/2025 8:05 AM CDT) Glucose, POC 116 70 - 199 mg/dL Blood 02/02/2025 8:05 AM CDT 02/02/2025 8:05 AM CDT us Gerardo Melissa MD LAB POCT ORDERABLES - DEVICE Final Result Performing Organization Address [facility] Co de Phone Number [facility] [place] [address] * POCT glucose (02/02/2025 3:40 AM CDT) Glucose, POC 147 70 - 199 mg/dL Blood 02/02/2025 3:40 AM CDT 02/02/2025 3:40 AM CDT us Gerardo Melissa MD LAB POCT ORDERABLES - DEVICE Final Result Performing Organization Address [facility] Co de Phone Number [facility] [place] [place] [address] * XR Chest 1 View (02/02/2025 2:03 [...] it. Electronically signed by: Shena Zazueta M.D. [facility] IMG XR PROCEDURES Final Result * (ABNORMAL) CBC without differential (02/02/2025 12:49 AM CDT) WBC 12.84(H) 3.80 - 9.90 K/cumm Hgb 7.7(L) 11.9 - 15.5 g/dL [facility] Hct 23.5(L) 35.6 - 45.5 % [facility] Plt 151 150 - 400 K/cumm [facility] MPV 10.8 9.1 - 12.3 fL [facility] RBC 2.61(L) 3.90 - 5.20 M/cumm [facility] MCV 90.0 81.3 - 96.4 fL [facility] MCH 29.5 27.1 - 33.3 pg [facility] MCHC 32.8 32.3 - 35.7 g/dL [facility] RDW CV 17.3(H) 11.1 - 14.9 % [facility] RDW SD 55.8(H) 35.7 - 48.1 fL [facility] NRBC abs 0.11(H) 0.00 - 0.01 K/cumm [facility] Blood 02/02/2025 12:4 9 AM CDT 02/02/2025 1:00 AM CDT us Gerardo Melissa MD LAB BLOOD ORDERABLES Final Re sult [facility] [place] [address] * Potassium, whole blood (02/02/2025 12:46 AM CDT) Potassium, bld 4.0 3.3 - 4.9 mmol/L Blood 02/02/2025 12:4 6 AM CDT 02/02/2025 12:56 AM CDT us Yesh Mayelin Birmingham NP LAB BLOOD ORDERABLES Final Result Performing Organization Address City/[facility]/ZIP Co de Phone Number [facility] [place] [address] * eGFR (02/02/2025 12:46 AM CDT) eGFR [...] CDT 02/02/2025 1:00 AM CDT Lucy Haas AUDIO VISUAL AIDS DIRECTOR LAB BLOOD ORDERABLES Final Res ult Performing Organization Address City/[facility] Co de Phone Number [facility] [place] [address] * Calcium, ionized (02/02/2025 12:46 AM CDT) Calcium, Ionized 4.68 4.50 - 5.10 mg/dL Blood 02/02/2025 12:4 6 AM CDT 02/02/2025 12:56 AM CDT Lucy Haas AUDIO VISUAL AIDS DIRECTOR LAB BLOOD ORDERABLES Final Res ult Performing Organization Address [facility] Co de Phone Number [facility] [place] [place] [address] * Lactate, whole blood (02/02/2025 12:46 AM CDT) Lactate, bld 0.8 0.7 - 2.0 mmol/L Blood 02/02/2025 12:4 6 AM CDT 02/02/2025 12:56 AM CDT Gerardo Melissa MD LAB BLOOD ORDERABLES Final Re sult Performing Organization Address City/[facility] Co de Phone Number [facility] [place] [address] * Phosphorus (02/02/2025 12:46 AM CDT) Phosphorus, pl 3.0 2.3 - 4.5 mg/dL Blood 02/02/2025 12:4 6 AM CDT 02/02/2025 1:00 AM CDT us Yes Mayelin Birmingham AUDIO VISUAL AIDS DIRECTOR LAB BLOOD ORDERABLES Final Result Performing Organization Address City/State/[facility] Co de Phone Number [facility] [place] [address] * Magnesium (02/02/2025 12:46 AM CDT) Pathologist [facility] Magnesium 2.3 1.4 - 2.5 mg/dL Blood 02/02/2025 12:4 6 AM CDT 02/02/2025 1:00 AM CDT us Yes Mayelin Birmingham AUDIO VISUAL AIDS DIRECTOR LAB BLOOD ORDERABLES Final Result Performing Organization Address City/[facility] Co de Phone Number [facility] [place] [place] [address] * (ABNORMAL) Basic metabolic panel (02/02/2025 12:46 AM CDT) Pathologist [facility] Sodium 146(H) 135 - 145 mmol/L Potassium, pl 4.0 3.3 - 4.9 mmol/L [facility] Chloride 112(H) 97 - 110 mmol/L [facility] CO2 27 22 - 32 mmol/L [facility] Anion gap 7 2 - 15 mmol/L [facility] BUN 32(H) 6 - 25 mg/dL [facility] Creatinine 0.99 0.60 - 1.10 mg/dL [facility] Glucose 144 70 - 199 mg/dL [facility] Comment: Interpretive Data Fasting glucose [...] 2022. Calcium 8.9 8.5 - 10.3 mg/dL [facility] Blood 02/02/2025 12:4 6 AM CDT 02/02/2025 1:00 AM CDT Lucy Haas AUDIO VISUAL AIDS DIRECTOR LAB BLOOD ORDERABLES Final Res ult Performing Organization Address [facility] Co de Phone Number [facility] [place] [address] * POCT glucose (02/01/2025 11:00 PM CDT) Glucose, POC 139 70 - 199 mg/dL Blood 02/01/2025 11:0 0 PM CDT 02/01/2025 11:00 PM CDT Gerardo Melissa MD LAB POCT ORDERABLES - DEVICE Final Result Performing Organization Address [facility] de Phone Number [facility] [place] [address] * (ABNORMAL) Blood gas, venous (02/01/2025 10:08 PM CDT) pH, Venous 7.42 7.32 - 7.43 PCO2, Venous 39(L) 40 - 50 mmHg [facility] PO2, Venous 124 mmHg [facility] Comment: Interpretive Data No Reference Range Established Current Interpretive Data was last revised on 2017. HCO3 Venous, Calculated 25 20 - 30 mmol/L [facility] BE, venous 1 mmol/L [facility] Comment: Interpretive Data No Reference Range Established Current Interpretive Data was last revised on 2017. Blood 02/01/2025 10:0 8 PM CDT 02/01/2025 10:15 PM CDT Sourav Eubanks PA LAB BLOOD ORDERABLES Fin al Result Performing Organization Address [facility]/ZIP Co de Phone Number K[facility]STIE POPE [facility] Department [place] [address] * Critical Care (02/01/2025 7:45 PM CDT) [...] plan with the ICU team and other medical/community health consultant staff, making frequent assessments and decisions [...] 7:04 PM CDT 02/01/2025 7:04 PM CDT us Gerardo Melissa MD LAB POCT ORDERABLES - DEVICE Final Result Performing Organization Address City/[facility]/ZIP Co de Phone Number KRISTIE POPE [facility] Department [place] [address] * POCT glucose (02/01/2025 6:06 PM CDT) [facility] Glucose, POC 195 70 - 199 mg/dL Blood 02/01/2025 6:06 PM CDT 02/01/2025 6:06 PM CDT Gerardo Melissa MD LAB POCT ORDERABLES - DEVICE Final Result [facility] [place] [address] * Potassium, whole blood (02/01/2025 6:00 PM CDT) [facility] Potassium, bld 3.7 3.3 - 4.9 mmol/L Blood 02/01/2025 6:00 PM CDT 02/01/2025 6:17 PM CDT Sven Dowell DO LAB BLOOD ORDERABLES F inal Result Performing Organization Address City/[facility]/[place] [address] * Respiratory pathogen panel Nasopharyngeal (02/01/2025 6:00 PM CDT) [facility] Influenza A RNA Not Detected Not Detected Influenza B RNA Not Detected Not Detected [facility] RSV RNA Not Detected Not Detected [facility] COVID-19 RNA Not Detected Not Detected [facility] Coronavirus 229E RNA Not Detected Not Detected [facility] Coronavirus HKU1 RNA Not Detected Not Detected [facility] Coronavirus NL63 RNA Not Detected Not Detected [facility] Coronavirus OC43 RNA Not Detected Not Detected [facility] Adenovirus DNA Not Detected Not Detected [facility] Metapneumovirus RNA Not Detected Not Detected [facility] Rhinovirus/Enterov irus RNA Not Detected Not Detected [facility] Parainfluenza 1 RNA Not Detected Not Detected [facility] Parainfluenza 2 RNA Not Detected Not Detected [facility] Parainfluenza 3 RNA Not Detected Not Detected [facility] Parainfluenza 4 RNA Not Detected Not Detected [facility] B. pertussis DNA Not Detected Not Detected [facility] B. parapertussis DNA Not Detected Not Detected [facility] C. pneumoniae DNA Not Detected Not Detected [facility] M. pneumoniae DNA Not Detected Not Detected [facility] Nasopharyngeal 02/01/2025 6: 00 PM CDT 02/01/2025 6:21 PM CDT Narrative [facility] - 02/01/2025 7:21 PM CDT Is the Patient experiencing symptoms consistent with COVID?->No Surveillance testing for transplant patient?->No Interpretive Data The Nuubo FilmArray Respiratory Panel (RP2.1) assay is a [...] assay has FDA clearance for testing of AUDIO VISUAL AIDS DIRECTOR swabs. The performance of additional specimen types has been assessed by the performing laboratory. The performance characteristics of this assay have been determined by [facility] Molecular Infectious Disease Laboratory. Current interpretive data was last revised on 22. us Mo Pride AUDIO VISUAL AIDS DIRECTOR LAB MICROBIOLOGY - GENERAL ORDERABLES Final Result [facility] Department [place] [address] * (ABNORMAL) POC Blood Gas and Chemistries, Venous - (02/01/2025 5:54 PM CDT) pH, Teodoro POC 7.20(C) 7.32 - 7.43 pCO2, teodoro POC 56(H) 40 - 50 mmHg [facility] pO2, teodoro POC 45 mmHg [facility] Na, POC 141 135 - 145 mmol/L [facility] K POC 3.6 3.3 - 4.9 mmol/L [facility] Comment: Interpretive Data Not all point of care methods assess for hemolysis. Confirm with instrument and retest K+ if not consistent with clinical signs and symptoms. Current Interpretive Data was last revised on 2023. Cl, POC 109 97 - 110 mmol/L [facility] Ionized Ca, POC 5.21(H) 4.50 - 5.10 mg/dL [facility] Glucose, POC 375(H) 70 - 199 mg/dL [facility] Lactate POC 1.2 0.7 - 2.0 mmol/L [facility] O2 Sat, Teodoro POC (Eb) 81 % [facility] Base excess, POC -6.0 mmol/L [facility] HCO3, Teodoro POC 22 20 - 30 mmol/L [facility] Hct, POC 24.0(L) 36.3 - 45.3 % [facility] Total Hb, POC 8.1(L) 11.9 - 15.5 g/dL [facility] Blood 02/01/2025 5:54 PM CDT 02/01/2025 5:54 PM CDT us Gerardo Melissa MD LAB POCT ORDERABLES - DEVICE Final Result [facility] Department [place] [address] * PET TECHNOLOGIST Evaluate and Treat (FEES) (02/01/2025 1:18 PM [...] (10mm Gelweave) & R carotid artery (8mm [place] PTFE) bypass & R carotid endarterectomy - 01/29: 1u PRBC, 1u PLT, no cuff leak. PPI BID - 01/30: extubated PET TECHNOLOGIST hx: 07/26/24 CSE recommended regular/thin Respiratory/Intubation Status:intubated 01/28-01/30, now on 3L Imaging: CXR 01/31: Increased left-sided pleural effusion with associated atelectasis. Precautions: Fall Current Diet Order:NPO Baseline Diet: Regular General Information Gabbi Hobson 02/01/25 PET TECHNOLOGIST Received On: 02/01/25 General Observations: Pt was seen sitting upright in bed. Alert and agreeable to exam. Pt tolerated the scope well. Pain Score: 0 If pain >4, was RN notified? N/A Patient Stated Goal/Comments: eat and drink Clinical Impression & Professional Recommendations Diet Solids Recommendation: Dysphagia diet-Soft (tender/chopped meat) Diet Liquids Recommendations: [place] thick Recommended Form of Medications: With puree [...] fold) Secretions: Minimal Consistencies Administered: Thin liquids, [place] thick liquids, Purees, Solids Thin Liquids: Laryngeal Penetration: Present Aspiration Present: Yes Timing: During Amount: Trace Penetration Aspiration Scale-Thin: 8-Material enters the airway, passes below the vocal folds and no effort is made to eject [place] Scale-Vallecular Residue-Thin Liquids: Trace Alfreda Scale-Pyriform Sinus Residue-Thin Liquids: Trace [place] Thickened Liquids: Laryngeal Penetration: Present Aspiration Present: No Penetration Aspiration Scale-[place]: 2-Material enters the airway, remains above the vocal folds and is ejected from the airway [place] Scale-Vallecular Residue-[place] Thickened Liquids: Trace [place] Scale-Pyriform Sinus Residue-[place] Thickened Liquids: Trace Purees: Laryngeal Penetration: None Aspiration Present: No Penetration Aspiration Scale-Puree: 2-Material enters the airway, remains above the vocal folds and is ejected from the airway Alfreda Scale-Vallecular Residue-Puree: Mild [place] Scale-Pyriform Sinus Residue-Puree: Trace Solids: Laryngeal Penetration: None Aspiration Present: No Penetration Aspiration Scale-Solids: 2-Material enters the airway, remains above the vocal folds and is ejected from the airway Alfreda Scale-Vallecular Residue-Solids: Mild Alfreda Scale-Pyriform Sinus Residue-Solids: Trace Dysphagia Outcome and Severity Scale: Dysphagia Outcomes and Severity Scale: 5 Mild dysphagia Levels 1 & 2 on the NADEEM indicate need for nonoral nutrition. Treatment Treatment was not provided this date. Please reference care plan for treatment goals and details, if indicated. Plan PET TECHNOLOGIST Frequency of Services during current admission: 2-3x/wk PET TECHNOLOGIST Recommendation (Add'l Services): Inpatient Rehab Facility Next Visit Plan:treatment/therapy Discharge Summary Statement If this is the last swallow therapy visit, this serves as the discharge summary. us Mo Pride NP PET TECHNOLOGIST ORDERABLES Final Resu lt [facility] * (ABNORMAL) Blood gas, venous (02/01/2025 11:12 AM CDT) pH, Venous 7.39 7.32 - 7.43 PCO2, Venous 38(L) 40 - 50 mmHg [facility] PO2, Venous 138 mmHg [facility] Comment: Interpretive Data No Reference Range Established Current Interpretive Data was last revised on 2017. HCO3 Venous, Calculated 22 20 - 30 mmol/L [facility] BE, venous -2 mmol/L [facility] Comment: Interpretive Data No Reference Range Established Current Interpretive Data was last revised on 2017. Blood 02/01/2025 11:1 2 AM CDT 02/01/2025 11:18 AM CDT Mo Pride AUDIO VISUAL AIDS DIRECTOR LAB BLOOD ORDERABLES Final Result Performing Organization Address [facility] Co de Phone Number KRISTIE [facility] [place] [address] * POCT glucose (02/01/2025 11:06 AM CDT) Glucose, POC 143 70 - 199 mg/dL Blood 02/01/2025 11:0 6 AM CDT 02/01/2025 11:06 AM CDT Gerardo Melissa MD LAB POCT ORDERABLES - DEVICE Final Result Performing Organization Address [facility] Co de Phone Number [facility] [place] [address] * POCT glucose (02/01/2025 8:28 AM CDT) Glucose, POC 118 70 - 199 mg/dL Blood 02/01/2025 8:28 AM CDT 02/01/2025 8:28 AM CDT us Gerardo Melissa MD LAB POCT ORDERABLES - DEVICE Final Result Performing Organization Address [facility] [place] [address] * Infection Prevention Jaylyn auris PCR, surveillance Axilla/Groin (02/01/2025 8:13 AM CDT) Jaylyn auris DNA Not Detected Not Detected [facility] Comment: Interpretive Data Testing performed by [facility] Molecular Infectious Disease Laboratory using the Frederick gus 6800 Jaylyn auris assay. This assay detects DNA from Jaylyn auris using Real-Time PCR. This assay is laboratory developed and is not cleared by the [place] Food and Drug Administration. The performance characteristics have been verified by the [facility] Infectious Disease Laboratory. Axilla/Groin 02/01/2025 8:13 AM CDT 02/01/2025 8:42 AM CDT Jay Jay Simon MD LAB MICROBIOLOGY - GENERAL ORDER YEMI Final Result Performing Organization Address [facility] Co de Phone Number [facility] [place] [address] [facility] * (ABNORMAL) CBC without differential (02/01/2025 8:13 AM CDT) WBC 11.61(H) 3.80 - 9.90 K/cumm Hgb 7.9(L) 11.9 - 15.5 g/dL [facility] Hct 23.6(L) 35.6 - 45.5 % [facility] Plt 128(L) 150 - 400 K/cumm [facility] MPV 11.0 9.1 - 12.3 fL [facility] RBC 2.67(L) 3.90 - 5.20 M/cumm [facility] MCV 88.4 81.3 - 96.4 fL [facility] MCH 29.6 27.1 - 33.3 pg [facility] MCHC 33.5 32.3 - 35.7 g/dL [facility] RDW CV 17.3(H) 11.1 - 14.9 % [facility] RDW SD 55.1(H) 35.7 - 48.1 fL [facility] NRBC abs 0.08(H) 0.00 - 0.01 K/cumm [facility] Blood 02/01/2025 8:13 AM CDT 02/01/2025 8:30 AM CDT Gerardo Melissa MD LAB BLOOD ORDERABLES Final Re sult Performing Organization Address City/[facility]/ZIP Co de Phone Number [facility] [place] [address] * Critical Care (02/01/2025 6:52 AM CDT) [...] plan with the ICU team and other medical/community health consultant staff, making frequent assessments and decisions [...] time documenting in the medical record us Mo Pride AUDIO VISUAL AIDS DIRECTOR IN CLINIC/BEDSIDE ORDERABL ES Final Result * POCT glucose (02/01/2025 3:27 AM CDT) Glucose, POC 151 70 - 199 mg/dL Blood 02/01/2025 3:27 AM CDT 02/01/2025 3:27 AM CDT us Gerardo Melissa MD LAB POCT ORDERABLES - DEVICE Final Result KRISTIE [facility] Department [place] [address] * (ABNORMAL) CBC without differential (02/01/2025 12:19 AM CDT) WBC 9.39 3.80 - 9.90 K/cumm Hgb 7.8(L) 11.9 - 15.5 g/dL [facility] Hct 23.7(L) 35.6 - 45.5 % [facility] Plt 102(L) 150 - 400 K/cumm [facility] MPV 11.4 9.1 - 12.3 fL [facility] RBC 2.63(L) 3.90 - 5.20 M/cumm [facility] MCV 90.1 81.3 - 96.4 fL [facility] [facility] MCH 29.7 27.1 - 33.3 pg [facility] MCHC 32.9 32.3 - 35.7 g/dL [facility] RDW CV 17.3(H) 11.1 - 14.9 % [facility] RDW SD 55.9(H) 35.7 - 48.1 fL [facility] NRBC abs 0.04(H) 0.00 - 0.01 K/cumm [facility] Blood 02/01/2025 12:1 9 AM CDT 02/01/2025 2:39 AM CDT us Gerardo Melissa MD LAB BLOOD ORDERABLES Final Re sult [facility] [place] [address] * Potassium, whole blood (02/01/2025 12:18 AM CDT) Potassium, bld 3.9 3.3 - 4.9 mmol/L Blood 02/01/2025 12:1 8 AM CDT 02/01/2025 2:32 AM CDT us Londonh Mayelin Birmingham NP LAB BLOOD ORDERABLES Final Result [facility] [place] [address] * eGFR (02/01/2025 12:18 AM CDT) Pathologist [facility] eGFR 70 >=60 mL/min/1. 73 m2 Comment: [...] 8 AM CDT 02/01/2025 2:52 AM CDT [facility] LAB BLOOD ORDERABLES Final Res ult Performing Organization Address City/[facility] Co de Phone Number [facility] [place] [address] * Calcium, ionized (02/01/2025 12:18 AM CDT) [facility] Calcium, Ionized 4.84 4.50 - 5.10 mg/dL Blood 02/01/2025 12:1 8 AM CDT 02/01/2025 2:52 AM CDT [facility] LAB BLOOD ORDERABLES Final Res ult Performing Organization Address City/[facility]/ZIP Co de Phone Number [facility] [place] [address] * Lactate, whole blood (02/01/2025 12:18 AM CDT) Pathologist [facility] Lactate, bld 1.8 0.7 - 2.0 mmol/L Blood 02/01/2025 12:1 8 AM CDT 02/01/2025 2:32 AM CDT Gerardo Melissa MD LAB BLOOD ORDERABLES Final Re sult Performing Organization Address [facility]/ZIP Co de Phone Number [place] [address] * (ABNORMAL) Phosphorus (02/01/2025 12:18 AM CDT) [facility] Phosphorus, pl 1.7(L) 2.3 - 4.5 mg/dL Blood 02/01/2025 12:1 8 AM CDT 02/01/2025 2:52 AM CDT Yes Mayelin Birmingham NP LAB BLOOD ORDERABLES Final Result Performing Organization Address [facility] Co de Phone Number [place] [address] * Magnesium (02/01/2025 12:18 AM CDT) [facility] Magnesium 2.0 1.4 - 2.5 mg/dL Blood 02/01/2025 12:1 8 AM CDT 02/01/2025 2:52 AM CDT [facility] Mayelin Birmingham NP LAB BLOOD ORDERABLES Final Result Performing Organization Address City/[facility] Co de Phone Number [place] [address] * (ABNORMAL) Basic metabolic panel (02/01/2025 12:18 AM CDT) [facility] Sodium 148(H) 135 - 145 mmol/L Potassium, pl 4.1 3.3 - 4.9 mmol/L [facility] Chloride 115(H) 97 - 110 mmol/L [facility] CO2 26 22 - 32 mmol/L [facility] Anion gap 7 2 - 15 mmol/L [facility] BUN 32(H) 6 - 25 mg/dL [facility] Creatinine 0.90 0.60 - 1.10 mg/dL [facility] Glucose 162 70 - 199 mg/dL [facility] Comment: Interpretive Data Fasting glucose [...] 2022. Calcium 8.5 8.5 - 10.3 mg/dL [facility] Blood 02/01/2025 12:1 8 AM CDT 02/01/2025 2:52 AM CDT Lucy Haas AUDIO VISUAL AIDS DIRECTOR LAB BLOOD ORDERABLES Final Res ult [facility] [place] [address] * POCT glucose (01/31/2025 11:58 PM CDT) [facility] Glucose, POC 137 70 - 199 mg/dL Blood 01/31/2025 11:5 8 PM CDT 01/31/2025 11:58 PM CDT Gerardo Melissa MD LAB POCT ORDERABLES - DEVICE Final Result [facility] [place] [address] * XR Chest 1 View - in [...] Garfield Cagle M.D. us Yesh Mayelin Birmingham AUDIO VISUAL AIDS DIRECTOR IMG XR PROCEDURES Final Res ult * POCT glucose (01/31/2025 7:46 PM CDT) Glucose, POC 165 70 - 199 mg/dL Blood 01/31/2025 7:46 PM CDT 01/31/2025 7:46 PM CDT us Gerardo Melissa MD LAB POCT ORDERABLES - DEVICE Final Result [facility] Department [place] [address] * GENERAL (01/31/2025 7:11 PM CDT) Narrative Rima Gleason MD - 01/31/2025 7:11 PM CDT Rima Gleason MD 02/01/2025 11:02 AM General - Inpatient Date/Time: 01/31/2025 7:11 PM Performed by: Nabil Farrell MD Authorized by: Nabil Farrell MD [place] Protocol: RN Notified of Procedure: yes Informed [...] plan with the ICU team and other medical/community health consultant staff, making frequent assessments and decisions [...] DO LAB BLOOD ORDERABLES F inal Result [facility] Department [place] [address] * Type and screen (01/31/2025 4:43 PM CDT) ABO Rh B Positive Taiwo, indirect Negative [facility] Blood 01/31/2025 4:43 PM CDT 01/31/2025 5:35 PM CDT Narrative [facility] - 01/31/2025 6:40 PM CDT Has the patient had Daratumumab or Isatuximab in the past 6 months?->Unknown Yesh Mayelin Birmingham AUDIO VISUAL AIDS DIRECTOR LAB BLOOD BANK TEST ORDERAB LES Final Result Performing Organization Address [facility] Phone Number [place] [address] * POCT glucose (01/31/2025 4:37 PM CDT) Glucose, POC 133 70 - 199 mg/dL Blood 01/31/2025 4:37 PM CDT 01/31/2025 4:37 PM CDT Gerardo Melissa MD LAB POCT ORDERABLES - DEVICE Final Result Performing Organization Address [facility] [place] [address] * POCT glucose (01/31/2025 11:51 AM CDT) Glucose, POC 132 70 - 199 mg/dL Blood 01/31/2025 11:5 1 AM CDT 01/31/2025 11:51 AM CDT Gerardo Melissa MD LAB POCT ORDERABLES - DEVICE Final Result Performing Organization Address [facility] Phone Number [place] [address] * XR Chest 1 View (01/31/2025 10:44 [...] signed by: Tu Rojas M.D. Flynn Bunch AUDIO VISUAL AIDS DIRECTOR IMG XR PROCEDURES Final Result * POCT glucose (01/31/2025 7:19 AM CDT) [facility] Signature Glucose, POC 118 70 - 199 mg/dL Blood 01/31/2025 7:19 AM CDT 01/31/2025 7:19 AM CDT Gerardo Melissa MD LAB POCT ORDERABLES - DEVICE Final Result [facility] Department [place] [address] * Critical Care (01/31/2025 7:00 AM CDT) [...] plan with the ICU team and other medical/community health consultant staff, making frequent assessments and decisions [...] or life-threatening deterioration of the following conditions: Flynn Bunch AUDIO VISUAL AIDS DIRECTOR IN CLINIC/BEDSIDE ORDER YEMI Final Result * POCT glucose (01/31/2025 3:11 AM CDT) Glucose, POC 135 70 - 199 mg/dL Blood 01/31/2025 3:11 AM CDT 01/31/2025 3:11 AM CDT Gerardo Melissa MD LAB POCT ORDERABLES - DEVICE Final Result [facility] Department [place] [address] * POCT glucose (01/31/2025 12:59 AM CDT) Glucose, POC 137 70 - 199 mg/dL Blood 01/31/2025 12:5 9 AM CDT 01/31/2025 12:59 AM CDT us Gerardo Melissa MD LAB POCT ORDERABLES - DEVICE Final Result Performing Organization Address [facility]/ZIP Co de Phone Number [facility] [place] [address] * (ABNORMAL) CBC without differential (01/31/2025 12:54 AM CDT) WBC 11.95(H) 3.80 - 9.90 K/cumm Hgb 8.0(L) 11.9 - 15.5 g/dL [facility] Hct 24.1(L) 35.6 - 45.5 % [facility] Plt 99(L) 150 - 400 K/cumm [facility] MPV 11.0 9.1 - 12.3 fL [facility] RBC 2.72(L) 3.90 - 5.20 M/cumm [facility] MCV 88.6 81.3 - 96.4 fL [facility] MCH 29.4 27.1 - 33.3 pg [facility] MCHC 33.2 32.3 - 35.7 g/dL [facility] RDW CV 17.9(H) 11.1 - 14.9 % [facility] RDW SD 57.3(H) 35.7 - 48.1 fL [facility] NRBC abs 0.02(H) 0.00 - 0.01 K/cumm [facility] Blood 01/31/2025 12:5 4 AM CDT 01/31/2025 1:18 AM CDT Gerardo Melissa MD LAB BLOOD ORDERABLES Final Re sult [facility] [place] [address] * Potassium, whole blood (01/31/2025 12:53 AM CDT) Potassium, bld 4.3 3.3 - 4.9 mmol/L Blood 01/31/2025 12:5 3 AM CDT 01/31/2025 1:11 AM CDT us Kenny Birmingham AUDIO VISUAL AIDS DIRECTOR LAB BLOOD ORDERABLES Final Result [facility] [place] [address] * (ABNORMAL) eGFR (01/31/2025 12:53 AM CDT) [...] 01/31/2025 1:14 AM CDT us Lucy Haas AUDIO VISUAL AIDS DIRECTOR LAB BLOOD ORDERABLES Final Res ult [facility] [place] [address] * Calcium, ionized (01/31/2025 12:53 AM CDT) Calcium, Ionized 5.03 4.50 - 5.10 mg/dL Blood 01/31/2025 12:5 3 AM CDT 01/31/2025 1:14 AM CDT Lucy Haas AUDIO VISUAL AIDS DIRECTOR LAB BLOOD ORDERABLES Final Res ult Performing Organization Address [facility] Co de Phone Number [facility] [place] [address] * Lactate, whole blood (01/31/2025 12:53 AM CDT) Lactate, bld 0.9 0.7 - 2.0 mmol/L Blood 01/31/2025 12:5 3 AM CDT 01/31/2025 1:11 AM CDT Gerardo Melissa MD LAB BLOOD ORDERABLES Final Re sult Performing Organization Address [facility] de Phone Number [facility] [place] [address] * Phosphorus (01/31/2025 12:53 AM CDT) Phosphorus, pl 2.3 2.3 - 4.5 mg/dL Blood 01/31/2025 12:5 3 AM CDT 01/31/2025 1:14 AM CDT Yes Mayelin Birmingham AUDIO VISUAL AIDS DIRECTOR LAB BLOOD ORDERABLES Final Result Performing Organization Address [facility] Co de Phone Number [facility] Department [place] [address] * Magnesium (01/31/2025 12:53 AM CDT) Magnesium 2.4 1.4 - 2.5 mg/dL Blood 01/31/2025 12:5 3 AM CDT 01/31/2025 1:14 AM CDT Yes Mayelin Birmingham AUDIO VISUAL AIDS DIRECTOR LAB BLOOD ORDERABLES Final Result Performing Organization Address [facility]/State/ZIP Co de Phone Number [facility] Department [place] [address] * (ABNORMAL) Basic metabolic panel (01/31/2025 12:53 AM CDT) Sodium 147(H) 135 - 145 mmol/L Potassium, pl 4.3 3.3 - 4.9 mmol/L [facility] Chloride 115(H) 97 - 110 mmol/L [facility] CO2 26 22 - 32 mmol/L [facility] Anion gap 6 2 - 15 mmol/L [facility] BUN 35(H) 6 - 25 mg/dL [facility] Creatinine 1.12(H) 0.60 - 1.10 mg/dL [facility] Glucose 122 70 - 199 mg/dL [facility] Comment: Interpretive Data Fasting glucose [...] 2022. Calcium 8.6 8.5 - 10.3 mg/dL [facility] Blood 01/31/2025 12:5 3 AM CDT 01/31/2025 1:14 AM CDT Lucy Haas AUDIO VISUAL AIDS DIRECTOR LAB BLOOD ORDERABLES Final Res ult [facility] Department [place] [address] * Potassium, whole blood (01/30/2025 10:51 PM CDT) Potassium, bld 4.2 3.3 - 4.9 mmol/L Blood 01/30/2025 10:5 1 PM CDT 01/31/2025 12:27 AM CDT Sven Dowell DO LAB BLOOD ORDERABLES F inal Result Performing Organization Address City/[facility]/ZIP Co de Phone Number [facility] Department [place] [address] * (ABNORMAL) Blood gas, arterial (01/30/2025 10:51 PM CDT) pH, Art 7.32(L) 7.35 - 7.45 PCO2, Arterial 44 35 - 45 mmHg [facility] PO2, Arterial 95 83 - 108 mmHg [facility] HCO3 Art (Calculated) 22 20 - 30 mmol/L [facility] BE, art -3 mmol/L [facility] Comment: Interpretive Data No Reference Range Established Current Interpretive Data was last revised on 2017 O2 Sat Art (Measured) 97(H) 90 - 95 % [facility] Blood 01/30/2025 10:5 1 PM CDT 01/31/2025 12:27 AM CDT Lucy Haas AUDIO VISUAL AIDS DIRECTOR LAB BLOOD ORDERABLES Final Res ult Performing Organization Address [facility] Co de Phone Number [facility] Department [place] [address] * XR Chest 1 View - in [...] Ted Washington M.D. us Yesh Mayelin Birmingham AUDIO VISUAL AIDS DIRECTOR IMG XR PROCEDURES Final Res ult * (ABNORMAL) CBC without differential (01/30/2025 9:35 PM CDT) WBC 10.42(H) 3.80 - 9.90 K/cumm Hgb 7.8(L) 11.9 - 15.5 g/dL [facility] Hct 23.1(L) 35.6 - 45.5 % [facility] Plt 96(L) 150 - 400 K/cumm [facility] MPV 11.1 9.1 - 12.3 fL [facility] RBC 2.63(L) 3.90 - 5.20 M/cumm [facility] MCV 87.8 81.3 - 96.4 fL [facility] MCH 29.7 27.1 - 33.3 pg [facility] MCHC 33.8 32.3 - 35.7 g/dL [facility] RDW CV 18.0(H) 11.1 - 14.9 % [facility] RDW SD 57.1(H) 35.7 - 48.1 fL [facility] NRBC abs 0.03(H) 0.00 - 0.01 K/cumm [facility] Blood 01/30/2025 9:35 PM CDT 01/30/2025 11:11 PM CDT us Gerardo Melissa MD LAB BLOOD ORDERABLES Final Re sult [facility] Department [place] [address] * XR Chest 1 View - in [...] Ted Washington M.D. us Yesh Mayelin Birmingham AUDIO VISUAL AIDS DIRECTOR IMG XR PROCEDURES Final Res ult * POCT glucose (01/30/2025 8:52 PM CDT) Glucose, POC 153 70 - 199 mg/dL Blood 01/30/2025 8:52 PM CDT 01/30/2025 8:52 PM CDT Gerardo Melissa MD LAB POCT ORDERABLES - DEVICE Final Result [facility] Department [place] [address] * Critical Care (01/30/2025 7:28 PM CDT) [...] plan with the ICU team and other medical/community health consultant staff, making frequent assessments and decisions [...] Blood gas, arterial (01/30/2025 5:25 PM CDT) [facility] pH, Art 7.38 7.35 - 7.45 PCO2, Arterial 38 35 - 45 mmHg [facility] PO2, Arterial 195(H) 83 - 108 mmHg [facility] HCO3 Art (Calculated) 22 20 - 30 mmol/L [facility] BE, art -3 mmol/L [facility] Comment: Interpretive Data No Reference Range Established Current Interpretive Data was last revised on 2017 O2 Sat Art (Measured) 100(H) 90 - 95 % [facility] Blood 01/30/2025 5:25 PM CDT 01/30/2025 5:37 PM CDT Lucy Haas AUDIO VISUAL AIDS DIRECTOR LAB BLOOD ORDERABLES Final Res ult Performing Organization Address City/[facility] Co de Phone Number [facility] Department [place] [address] * Potassium, whole blood (01/30/2025 3:02 PM CDT) Potassium, bld 3.6 3.3 - 4.9 mmol/L Blood 01/30/2025 3:02 PM CDT 01/30/2025 3:21 PM CDT Sven Dowell DO LAB BLOOD ORDERABLES F inal Result Performing Organization Address [facility] Co de Phone Number [facility] [address] * POCT glucose (01/30/2025 2:59 PM CDT) Glucose, POC 162 70 - 199 mg/dL Blood 01/30/2025 2:59 PM CDT 01/30/2025 2:59 PM CDT Gerardo Melissa MD LAB POCT ORDERABLES - DEVICE Final Result Performing Organization Address [facility] Co de Phone Number [place] [address] * Lactate, whole blood (01/30/2025 11:23 AM CDT) Lactate, bld 1.1 0.7 - 2.0 mmol/L Blood 01/30/2025 11:2 3 AM CDT 01/30/2025 11:42 AM CDT us Yes Mayelin Birmingham AUDIO VISUAL AIDS DIRECTOR LAB BLOOD ORDERABLES Final Result Performing Organization Address City/[facility]/ZIP Co de Phone Number [facility] Department [place] [address] * (ABNORMAL) CBC without differential (01/30/2025 11:23 AM CDT) Pathologist [facility] WBC 9.48 3.80 - 9.90 K/cumm Hgb 7.3(L) 11.9 - 15.5 g/dL [facility] Hct 22.2(L) 35.6 - 45.5 % [facility] Plt 86(L) 150 - 400 K/cumm [facility] MPV 10.8 9.1 - 12.3 fL [facility] RBC 2.50(L) 3.90 - 5.20 M/cumm [facility] MCV 88.8 81.3 - 96.4 fL [facility] MCH 29.2 27.1 - 33.3 pg [facility] MCHC 32.9 32.3 - 35.7 g/dL [facility] RDW CV 17.7(H) 11.1 - 14.9 % [facility] RDW SD 56.5(H) 35.7 - 48.1 fL [facility] NRBC abs 0.02(H) 0.00 - 0.01 K/cumm [facility] Blood 01/30/2025 11:2 3 AM CDT 01/30/2025 12:03 PM CDT us Yes Mayelin Birmingham AUDIO VISUAL AIDS DIRECTOR LAB BLOOD ORDERABLES Final Result [facility] [place] [address] * POCT glucose (01/30/2025 11:22 AM CDT) Glucose, POC 142 70 - 199 mg/dL Blood 01/30/2025 11:2 2 AM CDT 01/30/2025 11:22 AM CDT Gerardo Melissa MD LAB POCT ORDERABLES - DEVICE Final Result [facility] Department [place] [address] * XR Abdomen 1 View AP (01/30/2025 [...] * POCT glucose (01/30/2025 7:21 AM CDT) [facility] Glucose, POC 157 70 - 199 mg/dL Blood 01/30/2025 7:21 AM CDT 01/30/2025 7:21 AM CDT us Gerardo Melissa MD LAB POCT ORDERABLES - DEVICE Final Result Performing Organization Address [facility] Co de Phone Number [facility] [place] [address] * (ABNORMAL) CBC without differential (01/30/2025 5:25 AM CDT) [facility] WBC 7.80 3.80 - 9.90 K/cumm Hgb 9.5(L) 11.9 - 15.5 g/dL [facility] Hct 27.6(L) 35.6 - 45.5 % [facility] Plt 80(L) 150 - 400 K/cumm [facility] MPV 11.5 9.1 - 12.3 fL [facility] RBC 3.22(L) 3.90 - 5.20 M/cumm [facility] MCV 85.7 81.3 - 96.4 fL [facility] MCH 29.5 27.1 - 33.3 pg [facility] MCHC 34.4 32.3 - 35.7 g/dL [facility] RDW CV 17.2(H) 11.1 - 14.9 % [facility] RDW SD 53.7(H) 35.7 - 48.1 fL [facility] NRBC abs 0.03(H) 0.00 - 0.01 K/cumm [facility] Blood 01/30/2025 5:25 AM CDT 01/30/2025 6:11 AM CDT us Kenny Birmingham NP LAB BLOOD ORDERABLES Final Result Performing Organization Address City/[facility]/ZIP Co de Phone Number [facility] [place] [address] * Lactate, whole blood (01/30/2025 4:47 AM CDT) Lactate, bld 1.2 0.7 - 2.0 mmol/L Blood 01/30/2025 4:47 AM CDT 01/30/2025 5:14 AM CDT [facility] Mayelin Birmingham NP LAB BLOOD ORDERABLES Final Result Performing Organization Address [facility] Co de Phone Number [facility] Department [place] [address] * (ABNORMAL) Blood gas, arterial (01/30/2025 4:47 AM CDT) [facility] pH, Art 7.37 7.35 - 7.45 PCO2, Arterial 39 35 - 45 mmHg [facility] PO2, Arterial 126(H) 83 - 108 mmHg [facility] HCO3 Art (Calculated) 22 20 - 30 mmol/L [facility] BE, art -2 mmol/L [facility] Comment: Interpretive Data No Reference Range Established Current Interpretive Data was last revised on 2017 O2 Sat Art (Measured) 99(H) 90 - 95 % [facility] Blood 01/30/2025 4:47 AM CDT 01/30/2025 5:14 AM CDT Gerardo Melissa MD LAB BLOOD ORDERABLES Final Re sult Performing Organization Address City/[facility] Co de Phone Number [facility] Department [place] [address] * POCT glucose (01/30/2025 4:24 AM CDT) Glucose, POC 169 70 - 199 mg/dL Blood 01/30/2025 4:24 AM CDT 01/30/2025 4:24 AM CDT us Gerardo Melissa MD LAB POCT ORDERABLES - DEVICE Final Result [facility] [place] [address] * (ABNORMAL) Blood gas, arterial (01/30/2025 1:49 AM CDT) pH, Art 7.46(H) 7.35 - 7.45 PCO2, Arterial 29(L) 35 - 45 mmHg [facility] PO2, Arterial 99 83 - 108 mmHg [facility] HCO3 Art (Calculated) 21 20 - 30 mmol/L [facility] BE, art -2 mmol/L [facility] Comment: Interpretive Data No Reference Range Established Current Interpretive Data was last revised on 2017 O2 Sat Art (Measured) 99(H) 90 - 95 % [facility] Blood 01/30/2025 1:49 AM CDT 01/30/2025 2:04 AM CDT Lucy Haas NP LAB BLOOD ORDERABLES Final Res ult Performing Organization Address City/[facility]/ZIP Co de Phone Number [facility] [place] [address] * POCT glucose (01/29/2025 11:59 PM CDT) Glucose, POC 186 70 - 199 mg/dL Blood 01/29/2025 11:5 9 PM CDT 01/29/2025 11:59 PM CDT Gerardo Melissa MD LAB POCT ORDERABLES - DEVICE Final Result Performing Organization Address City/[facility]/ZIP Co de Phone Number [place] [address] * Potassium, whole blood (01/29/2025 11:51 PM CDT) Potassium, bld 4.1 3.3 - 4.9 mmol/L Blood 01/29/2025 11:5 1 PM CDT 01/30/2025 12:23 AM CDT Gerardo Melissa MD LAB BLOOD ORDERABLES Final Re sult Performing Organization Address City/[facility]/ZIP Co de Phone Number [facility] [place] [address] * (ABNORMAL) eGFR (01/29/2025 11:51 PM CDT) [...] 01/30/2025 12:55 AM CDT us Lucy Haas AUDIO VISUAL AIDS DIRECTOR LAB BLOOD ORDERABLES Final Res ult [facility] [place] [address] * Calcium, ionized (01/29/2025 11:51 PM CDT) Calcium, Ionized 4.85 4.50 - 5.10 mg/dL Blood 01/29/2025 11:5 1 PM CDT 01/30/2025 12:55 AM CDT Lucy Haas AUDIO VISUAL AIDS DIRECTOR LAB BLOOD ORDERABLES Final Res ult Performing Organization Address [facility] Co de Phone Number [facility] [place] [address] * (ABNORMAL) Lactate, whole blood (01/29/2025 11:51 PM CDT) Lactate, bld 2.9(H) 0.7 - 2.0 mmol/L Blood 01/29/2025 11:5 1 PM CDT 01/30/2025 12:23 AM CDT Kenny Birmingham AUDIO VISUAL AIDS DIRECTOR LAB BLOOD ORDERABLES Final Result Performing Organization Address [facility] de Phone Number [place] [address] * (ABNORMAL) Protime-INR (01/29/2025 11:51 PM CDT) PT 13.7(H) 10.2 - 13.5 sec INR 1.22(H) 0.90 - 1.20 [facility] Comment: Interpretive data Oral anticoagulant therapeutic ranges: Venous thromboembolism prophylaxis or treatment: 2.0-3.0 CARDIOLOGY Standard range: 2.0-3.0 High-intensity range: 2.5-3.5 Refer to indication-specific guidelines for appropriate target ranges for prosthetic heart valve replacement. Current interpretive data was last revised on 2019. Blood 01/29/2025 11:5 1 PM CDT 01/30/2025 12:20 AM CDT Lucy Haas AUDIO VISUAL AIDS DIRECTOR LAB BLOOD ORDERABLES Final Res ult Performing Organization Address [facility] Co de [place] [address] * (ABNORMAL) CBC without differential (01/29/2025 11:51 PM CDT) Pathologist [facility] WBC 9.60 3.80 - 9.90 K/cumm Hgb 7.6(L) 11.9 - 15.5 g/dL [facility] Hct 21.7(L) 35.6 - 45.5 % [facility] Plt 96(L) 150 - 400 K/cumm [facility] MPV 11.0 9.1 - 12.3 fL [facility] RBC 2.56(L) 3.90 - 5.20 M/cumm [facility] MCV 84.8 81.3 - 96.4 fL [facility] MCH 29.7 27.1 - 33.3 pg [facility] MCHC 35.0 32.3 - 35.7 g/dL [facility] RDW CV 17.0(H) 11.1 - 14.9 % [facility] RDW SD 51.9(H) 35.7 - 48.1 fL [facility] NRBC abs 0.03(H) 0.00 - 0.01 K/cumm [facility] Blood 01/29/2025 11:5 1 PM CDT 01/30/2025 12:25 AM CDT us Yesh Mayelin Birmingham AUDIO VISUAL AIDS DIRECTOR LAB BLOOD ORDERABLES Final Result [facility] Department [place] [address] * Triglycerides (01/29/2025 11:51 PM CDT) Pathologist [facility] Triglycerides 123 <=149 mg/dL Comment: Interpretive Data [...] ORDERABLES Final Re sult Performing Organization Address City/[facility] [place] [address] * Phosphorus (01/29/2025 11:51 PM CDT) Phosphorus, pl 3.4 2.3 - 4.5 mg/dL Blood 01/29/2025 11:5 1 PM CDT 01/30/2025 12:55 AM CDT us Gerardo Melissa MD LAB BLOOD ORDERABLES Final Re sult Performing Organization Address [facility] de Phone Number [facility] [place] [address] * Magnesium (01/29/2025 11:51 PM CDT) Magnesium 2.4 1.4 - 2.5 mg/dL Blood 01/29/2025 11:5 1 PM CDT 01/30/2025 12:55 AM CDT us Gerardo Melissa MD LAB BLOOD ORDERABLES Final Re sult Performing Organization Address [facility] Co de Phone Number [facility] [place] [place] [address] * (ABNORMAL) Creatine kinase (CK), total (01/29/2025 11:51 PM CDT) CK 760(H) 30 - 200 Units/L Blood 01/29/2025 11:5 1 PM CDT 01/30/2025 12:55 AM CDT us Lucy Haas AUDIO VISUAL AIDS DIRECTOR LAB BLOOD ORDERABLES Final Res ult [facility] Department [place] [address] * (ABNORMAL) Comprehensive metabolic panel (01/29/2025 11:51 PM CDT) Pathologist [facility] Sodium 145 135 - 145 mmol/L Potassium, pl 4.1 3.3 - 4.9 mmol/L [facility] Chloride 114(H) 97 - 110 mmol/L [facility] CO2 22 22 - 32 mmol/L [facility] Anion gap 9 2 - 15 mmol/L [facility] BUN 32(H) 6 - 25 mg/dL [facility] Creatinine 1.40(H) 0.60 - 1.10 mg/dL [facility] Glucose 165 70 - 199 mg/dL [facility] Comment: Interpretive Data Fasting glucose [...] 2022. Calcium 8.6 8.5 - 10.3 mg/dL [facility] Bilirubin, total 0.5 0.1 - 1.2 mg/dL [facility] Protein, pl 5.1(L) 6.5 - 8.5 g/dL [facility] Albumin 3.2(L) 3.5 - 5.0 g/dL [facility] Alk phos 33(L) 40 - 130 Units/L [facility] ALT 103(H) 7 - 45 Units/L [facility] AST 292(H) 10 - 45 Units/L [facility] Blood 01/29/2025 11:5 1 PM CDT 01/30/2025 12:55 AM CDT us Lucy Haas AUDIO VISUAL AIDS DIRECTOR LAB BLOOD ORDERABLES Final Res ult Performing Organization Address [facility]/ZIP Co de Phone Number [facility] Department [place] [address] * Transfuse platelets (01/29/2025 10:20 PM CDT) Blood us Kenny Birmingham AUDIO VISUAL AIDS DIRECTOR BLOOD TRANSFUSION ORDERABLE S Final Result Performing Organization Address [facility] Co de Phone Number [facility] [place] [place] [address] * XR Chest 1 View - in [...] Electronically signed by: Franklyn Berry M.D. us [place] Mayelin Birmingham NP IMG XR PROCEDURES Final Res ult * POCT glucose (01/29/2025 8:15 PM CDT) Glucose, POC 149 70 - 199 mg/dL Blood 01/29/2025 8:15 PM CDT 01/29/2025 8:15 PM CDT us Gerardo Melissa MD LAB POCT ORDERABLES - DEVICE Final Result [facility] Department [place] [address] * Critical Care (01/29/2025 6:51 PM CDT) [...] plan with the ICU team and other medical/community health consultant staff, making frequent assessments and decisions [...] BLOOD ORDERABLES Final Result Performing Organization Address City/[facility]/ZIP Co de Phone Number KRISTIE [facility] Department [place] [address] * (ABNORMAL) Lactate, whole blood (01/29/2025 6:19 PM CDT) Lactate, bld 2.7(H) 0.7 - 2.0 mmol/L Blood 01/29/2025 6:19 PM CDT 01/29/2025 6:25 PM CDT us Yes Mayelin Birmingham AUDIO VISUAL AIDS DIRECTOR LAB BLOOD ORDERABLES Final Result KRISTIE [facility] Department [place] [address] * (ABNORMAL) CBC without differential (01/29/2025 6:19 PM CDT) [facility] WBC 9.66 3.80 - 9.90 K/cumm Hgb 8.0(L) 11.9 - 15.5 g/dL [facility] Hct 23.2(L) 35.6 - 45.5 % [facility] Plt 78(L) 150 - 400 K/cumm [facility] MPV 11.0 9.1 - 12.3 fL [facility] RBC 2.72(L) 3.90 - 5.20 M/cumm [facility] MCV 85.3 81.3 - 96.4 fL [facility] MCH 29.4 27.1 - 33.3 pg [facility] MCHC 34.5 32.3 - 35.7 g/dL [facility] RDW CV 16.1(H) 11.1 - 14.9 % [facility] RDW SD 49.4(H) 35.7 - 48.1 fL [facility] NRBC abs 0.03(H) 0.00 - 0.01 K/cumm [facility] Blood 01/29/2025 6:19 PM CDT 01/29/2025 6:32 PM CDT us Yes Mayelin Birmingham NP LAB BLOOD ORDERABLES Final Result Performing Organization Address [facility] Co de Phone Number [facility] [place] [address] * Transfuse RBC (01/29/2025 5:56 PM CDT) Blood us Kenny Birmingham NP BLOOD TRANSFUSION ORDERABLE S Final Result Performing Organization Address City/[facility]/ZIP Co de Phone Number [facility] [address] * Prepare platelets: 1 Units (01/29/2025 5:07 PM CDT) [facility] Product code [id number] Unit Number [id number] [facility] Product Blood Type APOS [facility] Dispense Status PRESUMED TRANSFUSED [facility] Blood Venous blood specimen / Unknown 01/29/2025 5:07 PM CDT 01/29/2025 5:07 PM CDT Narrative KRISTIE [facility] - 01/30/2025 8:00 AM CDT Are special requirements needed? (all products are leukoreduced)->No Date required:-[id number] PLT # of Units:-1-Units Reasons:-Prior to neurosurgery, plt < 100 K/cumm} us Yesh Mayelin Birmingham AUDIO VISUAL AIDS DIRECTOR BLOOD BANK PRODUCT ORDERABL ES Final Result Performing Organization Address City/[facility]/ZIP Co de Phone Number [facility] Department [place] [address] * POCT glucose (01/29/2025 3:17 PM CDT) Pathologist [facility] Glucose, POC 146 70 - 199 mg/dL Blood 01/29/2025 3:17 PM CDT 01/29/2025 3:17 PM CDT us Gerardo Melissa MD LAB POCT ORDERABLES - DEVICE Final Result Performing Organization Address City/[facility] Co de Phone Number [facility] Department [place] [address] * Thromboelastometry Panel - Heparin (01/29/2025 1:46 PM CDT) HEPTEM-CT 196 141 - 215 sec HEPTEM-A5 36 33 - 51 mm [facility] HEPTEM-A10 46 44 - 61 mm [facility] HEPTEM-A20 53 52 - 67 mm [facility] HEPTEM-MCF 54 54 - 69 mm [facility] Blood 01/29/2025 1:4 6 PM CDT 01/29/2025 1:52 PM CDT us Yesh Debebe Dagne AUDIO VISUAL AIDS DIRECTOR LAB BLOOD ORDERABLES Edited Result - Final KRISTIE [facility] Department [place] [address] * (ABNORMAL) Thromboelastometry Panel - Intrinsic (01/29/2025 1:46 PM CDT) INTEM-CT 208(H) 139 - 205 sec INTEM-A5 38 36 - 54 mm [facility] INTEM-A10 48 46 - 63 mm [facility] INTEM-A20 54 53 - 68 mm [facility] INTEM-MCF 55 55 - 70 mm [facility] INTEM-LI60 94 93 - 100 % [facility] INTEM-ML 7 0 - 7 % [facility] Comment: Interpretive Data Rotational Thromboelastometry (MARY) Sigma [...] platelet function defects. Literature References 1. Jannet Rehman, Brooklynn E. Sensitivity of Viscoelastic Tests to Platelet Function. J Clin Med. 2019May 11 9(4) 517. 2. Rome O, Kayce CM, Shaw N, Ángel EE, Ángel HB, Galina HC, Hamlet CAAL, Jayden Green MD, Kyrie SS, Ludwig Diaz, Josh MATHEW, Bev ML, Colby AV, Colby SG, Lucas L, Nicholas PerryZ, Agus M, Negrita P, Tru D, Esvin MM. Viscoelastic Hemostatic Assays A Primer on Legacy and New Generation Devices. J Clin Med. 2021Jun 08 11(5) 406. 3. MARY Operating Manual. Ingrid Holder MA. Elvin 13-15. D- [id number] [facility]. Blood 01/29/2025 1:46 PM CDT 01/29/2025 1:52 PM CDT us Yes Mayelin Birmingham AUDIO VISUAL AIDS DIRECTOR LAB BLOOD ORDERABLES Edited Result - Final Performing Organization Address [facility] Co de Phone Number [facility] [place] [place] [address] * Thromboelastometry Panel - Fibrinogen (01/29/2025 1:46 PM CDT) FIBTEM-A5 9 5 - 16 mm FIBTEM-A10 10 6 - 17 mm [facility] FIBTEM-A20 11 6 - 18 mm [facility] FIBTEM-MCF 12 9 - 19 mm [facility] Blood 01/29/2025 1:46 PM CDT 01/29/2025 1:52 PM CDT us Yes Mayelin Birmingham AUDIO VISUAL AIDS DIRECTOR LAB BLOOD ORDERABLES Edited Result - Final Performing Organization Address [facility] de Phone Number [facility] [place] [address] * (ABNORMAL) Thromboelastometry Panel - Extrinsic (01/29/2025 1:46 PM CDT) EXTEM-CT 62 51 - 73 sec EXTEM-A5 37 33 - 52 mm [facility] EXTEM-A10 48 45 - 62 mm [facility] EXTEM-A20 54 54 - 69 mm [facility] EXTEM-MCF 55(L) 57 - 72 mm [facility] EXTEM-LI60 94 94 - 100 % [facility] EXTEM-ML 8(H) 0 - 6 % [facility] Blood 01/29/2025 1:46 PM CDT 01/29/2025 1:52 PM CDT us Yes Mayelin Birmingham NP LAB BLOOD ORDERABLES Edited Result - Final Performing Organization Address [facility] Co de Phone Number [place] [address] * Type and screen (01/29/2025 1:46 PM CDT) ABO Rh B Positive Taiwo, indirect Negative [facility] Blood 01/29/2025 1:46 PM CDT 01/29/2025 1:57 PM CDT Narrative [facility] - 01/29/2025 3:32 PM CDT Has the patient had Daratumumab or Isatuximab in the past 6 months?->Unknown us Yes Mayelin Birmingham NP LAB BLOOD BANK TEST ORDERAB LES Final Result Performing Organization Address [facility] [place] [address] * Prepare RBC: 1 Units (01/29/2025 1:44 PM CDT) Product code [id number] Unit Number [id number] [facility] Product Blood Type BPOS [facility] Dispense Status PRESUMED TRANSFUSED [facility] Blood 01/29/2025 1:44 PM CDT 01/29/2025 1:44 PM CDT Narrative [facility] - 01/30/2025 4:00 AM CDT Are special requirements needed? (All products are leukoreduced and CMV- safe)- >No Date required:-[id number] LRRBC # of Odsii-4-Urhmd Reasons:-Hgb <7 g/dL} us Yes Mayelin Birmingham NP BLOOD BANK PRODUCT ORDERABL ES Final Result Performing Organization Address [facility] Co de Phone Number [place] [address] * Transfuse platelets (01/29/2025 1:41 PM CDT) Blood Lucy Haas AUDIO VISUAL AIDS DIRECTOR BLOOD TRANSFUSION ORDERABLES F inal Result Performing Organization Address [facility] Co de Phone Number [facility] [place] [place] [address] * Calcium, ionized, whole blood (01/29/2025 12:50 PM CDT) Pathologist [facility] Ca, ionized, bld 4.71 4.50 - 5.10 mg/dL Blood 01/29/2025 12:5 0 PM CDT 01/29/2025 12:58 PM CDT Gerardo Melissa MD LAB BLOOD ORDERABLES Final Re sult Performing Organization Address [facility] Co de Phone Number [facility] Department [place] [address] * (ABNORMAL) Lactate, whole blood (01/29/2025 12:50 PM CDT) [facility] Lactate, bld 3.6(H) 0.7 - 2.0 mmol/L Blood 01/29/2025 12:5 0 PM CDT 01/29/2025 12:58 PM CDT Kenny Birmingham AUDIO VISUAL AIDS DIRECTOR LAB BLOOD ORDERABLES Final Result Performing Organization Address [facility] Co de Phone Number [facility] [place] [place] [address] * (ABNORMAL) CBC without differential (01/29/2025 12:50 PM CDT) [facility] WBC 8.61 3.80 - 9.90 K/cumm Hgb 6.9(L) 11.9 - 15.5 g/dL [facility] Hct 19.9(L) 35.6 - 45.5 % [facility] Plt 77(L) 150 - 400 K/cumm [facility] MPV 11.0 9.1 - 12.3 fL [facility] RBC 2.28(L) 3.90 - 5.20 M/cumm [facility] MCV 87.3 81.3 - 96.4 fL [facility] MCH 30.3 27.1 - 33.3 pg [facility] MCHC 34.7 32.3 - 35.7 g/dL [facility] RDW CV 14.6 11.1 - 14.9 % [facility] RDW SD 46.4 35.7 - 48.1 fL [facility] NRBC abs 0.03(H) 0.00 - 0.01 K/cumm [facility] Blood 01/29/2025 12:5 0 PM CDT 01/29/2025 1:13 PM CDT us Kenny Birmingham AUDIO VISUAL AIDS DIRECTOR LAB BLOOD ORDERABLES Final Result Performing Organization Address [facility] de Phone Number [facility] Department [place] [address] * (ABNORMAL) Blood gas, arterial (01/29/2025 12:50 PM CDT) pH, Art 7.40 7.35 - 7.45 PCO2, Arterial 31(L) 35 - 45 mmHg [facility] PO2, Arterial 145(H) 83 - 108 mmHg [facility] HCO3 Art (Calculated) 19(L) 20 - 30 mmol/L [facility] BE, art -5 mmol/L [facility] Comment: Interpretive Data No Reference Range Established Current Interpretive Data was last revised on 2017 O2 Sat Art (Measured) 100(H) 90 - 95 % [facility] Blood 01/29/2025 12:5 0 PM CDT 01/29/2025 12:58 PM CDT us Lucy Haas AUDIO VISUAL AIDS DIRECTOR LAB BLOOD ORDERABLES Final Res ult Performing Organization Address [facility] Co de Phone Number [facility] [place] [address] * POCT glucose (01/29/2025 11:37 AM CDT) Glucose, POC 139 70 - 199 mg/dL Blood 01/29/2025 11:3 7 AM CDT 01/29/2025 11:37 AM CDT us Gerardo Melissa MD LAB POCT ORDERABLES - DEVICE Final Result Performing Organization Address City/[facility] Co de Phone Number [facility] [place] [address] * Transfuse cryoprecipitate (pooled units) (01/29/2025 10:51 AM CDT) Blood Lucy Haas AUDIO VISUAL AIDS DIRECTOR BLOOD TRANSFUSION ORDERABLES F inal Result Performing Organization Address City/[facility] [place] [address] * POCT glucose (01/29/2025 9:26 AM CDT) [facility] Glucose, POC 141 70 - 199 mg/dL Blood 01/29/2025 9:26 AM CDT 01/29/2025 9:26 AM CDT us Gerardo Melissa MD LAB POCT ORDERABLES - DEVICE Final Result Performing Organization Address City/[facility]/[place] [address] * Transfuse plasma Standard plasma (01/29/2025 9:10 AM CDT) Blood Lucy Haas AUDIO VISUAL AIDS DIRECTOR BLOOD TRANSFUSION ORDERABLES F inal Result Performing Organization Address City/[facility] Co de Phone Number KRISTIE [facility] [place] [address] * Infection Prevention Jaylyn auris PCR, surveillance Axilla/Groin (01/29/2025 9:01 AM CDT) Jaylyn auris DNA Not Detected Not Detected [facility] Comment: Interpretive Data Testing performed by [facility] Disease [facility] using the Frederick gus 6800 Jaylyn auris assay. This assay detects DNA from Jaylyn auris using Real-Time PCR. This assay is laboratory developed and is not cleared by the [facility] Food and Drug Administration. The performance characteristics have been verified by the [facility]. Axilla/Groin 01/29/2025 9:01 AM CDT 01/29/2025 9:45 AM CDT Narrative [facility] - 01/30/2025 3:30 AM CDT Order placed by [facility] due to ring surveillance. Instant Order Generic Provider LAB MICROBIOLOGY - GENERAL ORDERABLES Final Result [facility] [place] [address] [facility] * POCT glucose (01/29/2025 8:23 AM CDT) Pathologist [facility] Glucose, POC 128 70 - 199 mg/dL Blood 01/29/2025 8:23 AM CDT 01/29/2025 8:23 AM CDT Gerardo Melissa MD LAB POCT ORDERABLES - [place] [address] * Transfuse RBC (01/29/2025 7:36 AM CDT) Blood Gerardo Melissa MD BLOOD TRANSFUSION ORDERABLES Final Result KRISTIE POPE [facility] Department [place] [address] * POCT glucose (01/29/2025 7:27 AM CDT) Glucose, POC 105 70 - 199 mg/dL Blood 01/29/2025 7:27 AM CDT 01/29/2025 7:27 AM CDT us Gerardo Melissa MD LAB POCT ORDERABLES - DEVICE Final Result Performing Organization Address City/[facility] Co de Phone Number KRISTIE [facility] Department [place] [address] * Critical Care (01/29/2025 7:03 AM CDT) Narrative Rima Gleason MD - 01/29/2025 7:03 AM CDT Rima Gleason MD 01/30/2025 10:56 AM Critical Care Performed by: Kenny Birmingham NP Authorized by: Kenny Birmingham NP CRITICAL CARE: Team: 83 CTICU Shift: [...] plan with the ICU team and other medical/community health consultant staff, making frequent assessments and decisions [...] documenting in the medical record us Yesh Debebe Dagne AUDIO VISUAL AIDS DIRECTOR IN CLINIC/BEDSIDE ORDERABLE S Final Result * [...] CDT 01/29/2025 6:05 AM CDT Lucy Haas AUDIO VISUAL AIDS DIRECTOR LAB BLOOD ORDERABLES Final Res ult KRISTIE [facility] [place] [address] * (ABNORMAL) Creatine kinase (CK), total (01/29/2025 5:46 AM CDT) CK 594(H) 30 - 200 Units/L Comment:Repeated and Verifie d Blood 01/29/2025 5:46 AM CDT 01/29/2025 6:05 AM CDT Lucy Haas AUDIO VISUAL AIDS DIRECTOR LAB BLOOD ORDERABLES Final Res ult KRISTIE [facility] Department [place] [address] * (ABNORMAL) Comprehensive metabolic panel (01/29/2025 5:46 AM CDT) Sodium 145 135 - 145 mmol/L Potassium, pl 4.9 3.3 - 4.9 mmol/L [facility] Chloride 113(H) 97 - 110 mmol/L [facility] CO2 20(L) 22 - 32 mmol/L [facility] Anion gap 12 2 - 15 mmol/L [facility] BUN 22 6 - 25 mg/dL [facility] Creatinine 1.41(H) 0.60 - 1.10 mg/dL [facility] Glucose 114 70 - 199 mg/dL [facility] Comment: Interpretive Data Fasting glucose [...] 2022. Calcium 8.2(L) 8.5 - 10.3 mg/dL [facility] Bilirubin, total 0.2 0.1 - 1.2 mg/dL [facility] Protein, pl 4.8(L) 6.5 - 8.5 g/dL [facility] Albumin 3.7 3.5 - 5.0 g/dL [facility] Alk phos 26(L) 40 - 130 Units/L [facility] ALT 147(H) 7 - 45 Units/L [facility] AST 274(H) 10 - 45 Units/L [facility] Blood 01/29/2025 5:46 AM CDT 01/29/2025 6:05 AM CDT us Lucy Haas AUDIO VISUAL AIDS DIRECTOR LAB BLOOD ORDERABLES Final Res [place] [address] * Prepare cryoprecipitate (pooled units): 1 Units (01/29/2025 5:29 AM CDT) Product code [id number] Unit Number [id number] KRISTIE [facility] Product Blood Type OPOS KRISTIE [facility] Dispense Status PRESUMED TRANSFUSED [facility] Blood Venous blood specimen / Unknown 01/29/2025 5:29 AM CDT 01/29/2025 5:29 AM CDT Narrative [facility] - 01/30/2025 12:56 AM CDT Cryo # of [id number] Reasons:-Dysfibrinogenemia WITH bleeding} [facility] BLOOD BANK PRODUCT ORDERABLES Final Result Performing Organization Address [facility] [place] [address] * Prepare platelets: 1 Units (01/29/2025 5:28 AM CDT) Pathologist [facility] Product code [id number] Unit Number [id number]- I [facility] Product Blood Type BPOS KRISTIE [facility] Dispense Status PRESUMED TRANSFUSED KRISTIE [facility] Blood Venous blood specimen / Unknown 01/29/2025 5:28 AM CDT 01/29/2025 5:29 AM CDT Narrative [facility] - 01/30/2025 12:56 AM CDT Are special requirements needed? (all products are leukoreduced)->No Date required:-[id number] PLT # of Units:-1-Units Reasons:-Major active bleeding} [facility] BLOOD BANK PRODUCT [place] [address] * Prepare plasma: 1 Units Standard plasma (01/29/2025 5:27 AM CDT) [facility] Product code [id number] Unit Number [id number]- J [facility] Product Blood Type BPOS [facility] Dispense Status PRESUMED TRANSFUSED [facility] Blood Venous blood specimen / Unknown 01/29/2025 5:27 AM CDT 01/29/2025 5:29 AM CDT Narrative KRISTIE [facility] - 01/29/2025 8:01 PM CDT Is this plasma order intended for a COVID-19 patient as convalescent plasma?->Standard plasma Special Requirements Needed?->No Date required:-[id number] FFP # of Units:-1-Units Reasons:-According to clinical research protocol} Lucy Haas NP BLOOD BANK PRODUCT ORDERABLES Final Result Performing Organization Address City/[facility] Co de Phone Number [facility] [place] [address] * (ABNORMAL) Thromboelastometry Panel - Heparin (01/29/2025 4:56 AM CDT) [facility] HEPTEM-CT 212 141 - 215 sec HEPTEM-A5 25(L) 33 - 51 mm [facility] HEPTEM-A10 35(L) 44 - 61 mm [facility] HEPTEM-A20 42(L) 52 - 67 mm [facility] HEPTEM-MCF 45(L) 54 - 69 mm [facility] Blood 01/29/2025 4:56 AM CDT 01/29/2025 6:20 AM CDT Gerardo Melissa MD LAB BLOOD ORDERABLES Edited R esult - Final Performing Organization Address City/[facility]/ZIP Co de Phone Number [facility] [place] [address] * (ABNORMAL) Thromboelastometry Panel - Intrinsic (01/29/2025 4:56 AM CDT) INTEM-CT 228(H) 139 - 205 sec INTEM-A5 26(L) 36 - 54 mm [facility] INTEM-A10 36(L) 46 - 63 mm [facility] INTEM-A20 43(L) 53 - 68 mm [facility] INTEM-MCF 45(L) 55 - 70 mm [facility] INTEM-LI60 96 93 - 100 % [facility] INTEM-ML 4 0 - 7 % [facility] Comment: Interpretive Data Rotational Thromboelastometry (MARY) Sigma [...] platelet function defects. Literature References 1. Jannet Rehman, Brooklynn Proctor. Sensitivity of Viscoelastic Tests to Platelet Function. J Clin Med. 2019 10 9(4) 180. 2. Rome O, Kayce CM, Shaw N, Ángel EE, Ángel HB, Galina HC, Hamlet CAAL, Jayden Green MD, Kyrie SS, Ludwig G, Josh MATHEW, Bev ML, Colby AV, Colby SG, Lucas L, Nicholas PerryZ, Agus M, Negrita P, Tru D, Esvin MM. Viscoelastic Hemostatic Assays A Primer on Legacy and New Generation Devices. J Clin Med. 2021Jun 08 11(6) 205. 3. MARY Operating Manual. Ingrid Holder MA. Vjjcrb-Cihikk-Umtrpxu 13-15. D- [id number] [facility]. Blood 01/29/2025 4:56 AM CDT 01/29/2025 6:20 AM CDT us Gerardo Melissa MD LAB BLOOD ORDERABLES Edited R esult - Final [facility] [place] [address] * (ABNORMAL) Thromboelastometry Panel - Fibrinogen (01/29/2025 4:56 AM CDT) FIBTEM-A5 4(L) 5 - 16 mm FIBTEM-A10 4(L) 6 - 17 mm [facility] FIBTEM-A20 5(L) 6 - 18 mm [facility] FIBTEM-MCF 5(L) 9 - 19 mm [facility] Blood 01/29/2025 4:56 AM CDT 01/29/2025 6:20 AM CDT Gerardo Melissa MD LAB BLOOD ORDERABLES Edited [employer] Performing Organization Address [facility] Co de Phone Number [facility] [place] [place] [address] * (ABNORMAL) Thromboelastometry Panel - Extrinsic (01/29/2025 4:56 AM CDT) Pathologist [facility] EXTEM-CT 70 51 - 73 sec EXTEM-A5 [...] Melissa MD LAB BLOOD ORDERABLES Edited [employer] [place] [address] * Prepare RBC: 1 Units (01/29/2025 4:55 AM CDT) Pathologist [facility] Product code [id number] Unit Number [id number] [facility] Product Blood Type BPOS [facility] Dispense Status PRESUMED TRANSFUSED [facility] Blood 01/29/2025 4:55 AM CDT 01/29/2025 4:54 AM CDT Narrative [facility] - 01/29/2025 8:01 PM CDT Are special requirements needed? (All products are leukoreduced and CMV- safe)- >No Date required:-[id number] LRRBC # of [id number] Reasons:-Cardiovascular disease, Hgb <8 g/dL} Gerardo Melissa MD BLOOD BANK PRODUCT ORDERABLES Final Result [facility] Department [place] [address] * (ABNORMAL) POC Blood Gas and Chemistries, Arterial - (01/29/2025 4:19 AM CDT) [facility] pH, Art POC 7.33(L) 7.35 - 7.45 pCO2, Art POC 32(L) 35 - 45 mmHg [facility] pO2, Art POC 118(H) 83 - 108 mmHg [facility] Na, POC 141 135 - 145 mmol/L [facility] K POC 4.6 3.3 - 4.9 mmol/L [facility] Comment: Interpretive Data Not all point of care methods assess for hemolysis. Confirm with instrument and retest K+ if not consistent with clinical signs and symptoms. Current Interpretive Data was last revised on 2023. Cl, POC 115(H) 97 - 110 mmol/L [facility] Ionized Ca, POC 4.75 4.50 - 5.10 mg/dL [facility] Glucose, POC 104 70 - 199 mg/dL [facility] Lactate POC 4.0(C) 0.7 - 2.0 mmol/L [facility] SO2 (eb) arterial 100(H) 90 - 95 % [facility] Base excess, POC -8.2 mmol/L [facility] HCO3, Art POC 17(L) 20 - 30 mmol/L [facility] Hct, POC 23.0(L) 36.3 - 45.3 % [facility] Total Hb, POC 7.8(L) 11.9 - 15.5 g/dL [facility] Blood 01/29/2025 4:19 AM CDT 01/29/2025 4:19 AM CDT us Gerardo Melissa MD LAB POCT ORDERABLES - DEVICE Final Result [facility] Department [place] [address] * (ABNORMAL) POC Blood Gas and Chemistries, Arterial - (01/29/2025 2:56 AM CDT) pH, Art POC 7.37 7.35 - 7.45 pCO2, Art POC 32(L) 35 - 45 mmHg [facility] pO2, Art POC 126(H) 83 - 108 mmHg [facility] Na, POC 143 135 - 145 mmol/L [facility] K POC 4.4 3.3 - 4.9 mmol/L [facility] Comment: Interpretive Data Not all point of care methods assess for hemolysis. Confirm with instrument and retest K+ if not consistent with clinical signs and symptoms. Current Interpretive Data was last revised on 2023. Cl, POC 115(H) 97 - 110 mmol/L [facility] Ionized Ca, POC 4.94 4.50 - 5.10 mg/dL [facility] Glucose, POC 76 70 - 199 mg/dL [facility] Lactate POC 3.2(H) 0.7 - 2.0 mmol/L [facility] SO2 (eb) arterial 100(H) 90 - 95 % [facility] Base excess, POC -6.1 mmol/L [facility] HCO3, Art POC 18(L) 20 - 30 mmol/L [facility] Hct, POC 23.0(L) 36.3 - 45.3 % [facility] Total Hb, POC 7.6(L) 11.9 - 15.5 g/dL [facility] Blood 01/29/2025 2:56 AM CDT 01/29/2025 2:56 AM CDT us Gerardo Melissa MD LAB POCT ORDERABLES - DEVICE Final Result [facility] Department [place] [address] * (ABNORMAL) POC Blood Gas and Chemistries, Arterial - (01/29/2025 1:41 AM CDT) pH, Art POC 7.33(L) 7.35 - 7.45 pCO2, Art POC 34(L) 35 - 45 mmHg [facility] pO2, Art POC 133(H) 83 - 108 mmHg [facility] Na, POC 141 135 - 145 mmol/L [facility] K POC 4.6 3.3 - 4.9 mmol/L [facility] Comment: Interpretive Data Not all point of care methods assess for hemolysis. Confirm with instrument and retest K+ if not consistent with clinical signs and symptoms. Current Interpretive Data was last revised on 2023. Cl, POC 114(H) 97 - 110 mmol/L [facility] Ionized Ca, POC 4.94 4.50 - 5.10 mg/dL [facility] Glucose, POC 104 70 - 199 mg/dL [facility] Lactate POC 4.3(C) 0.7 - 2.0 mmol/L [facility] SO2 (eb) arterial 100(H) 90 - 95 % [facility] Base excess, POC -7.3 mmol/L [facility] HCO3, Art POC 18(L) 20 - 30 mmol/L [facility] Hct, POC 25.0(L) 36.3 - 45.3 % [facility] Total Hb, POC 8.4(L) 11.9 - 15.5 g/dL [facility] Blood 01/29/2025 1:41 AM CDT 01/29/2025 1:41 AM CDT Gerardo Melissa MD LAB POCT ORDERABLES - DEVICE Final Result [facility] [place] [address] * (ABNORMAL) POC Blood Gas and Chemistries, Arterial - (01/29/2025 12:05 AM CDT) pH, Art POC 7.32(L) 7.35 - 7.45 pCO2, Art POC 33(L) 35 - 45 mmHg [facility] pO2, Art POC 118(H) 83 - 108 mmHg [facility] Na, POC 140 135 - 145 mmol/L [facility] K POC 4.6 3.3 - 4.9 mmol/L [facility] Comment: Interpretive Data Not all point of care methods assess for hemolysis. Confirm with instrument and retest K+ if not consistent with clinical signs and symptoms. Current Interpretive Data was last revised on 2023. Cl, POC 114(H) 97 - 110 mmol/L [facility] Ionized Ca, POC 4.67 4.50 - 5.10 mg/dL [facility] Glucose, POC 138 70 - 199 mg/dL [facility] Lactate POC 4.4(C) 0.7 - 2.0 mmol/L [facility] SO2 (eb) arterial 100(H) 90 - 95 % [facility] Base excess, POC -8.2 mmol/L [facility] HCO3, Art POC 17(L) 20 - 30 mmol/L [facility] Hct, POC 29.0(L) 36.3 - 45.3 % [facility] Total Hb, POC 9.5(L) 11.9 - 15.5 g/dL [facility] Blood 01/29/2025 12:0 5 AM CDT 01/29/2025 12:05 AM CDT Gerardo Melissa MD LAB POCT ORDERABLES - DEVICE Final Result [facility] [place] [address] * POCT glucose (01/29/2025 12:01 AM CDT) Glucose, POC 145 70 - 199 mg/dL Blood 01/29/2025 12:0 1 AM CDT 01/29/2025 12:01 AM CDT us Gerardo Melissa MD LAB POCT ORDERABLES - DEVICE Final Result [facility] [place] [address] * Potassium, whole blood (01/28/2025 11:57 PM CDT) [facility] Potassium, bld 4.5 3.3 - 4.9 mmol/L Blood 01/28/2025 11:5 7 PM CDT 01/29/2025 12:16 AM CDT us Gerardo Melissa MD LAB BLOOD ORDERABLES Final Re sult Performing Organization Address [facility] Co de Phone Number [facility] [place] [address] * (ABNORMAL) eGFR (01/28/2025 11:57 PM CDT) [facility] eGFR 48(L) >=60 mL/min/1. 73 m2 Comment: [...] 01/29/2025 12:20 AM CDT us Kenny Birmingham AUDIO VISUAL AIDS DIRECTOR LAB BLOOD ORDERABLES Final Result Performing Organization Address [facility]/ZIP Co de Phone Number [place] [address] * Critical Result Callback Chemistry (01/28/2025 11:57 PM CDT) Date Notified 20250129 Time Notified 27 [facility] TestName Lactate Whole Blood [facility] Called/Read Back Aida FLOWERS [facility] Credentials RN [facility] Called By FELIX FLOWERS [facility] Blood 01/28/2025 11:5 7 PM CDT 01/29/2025 12:16 AM CDT us Gerardo Melissa MD LAB BLOOD ORDERABLES Final Re sult Performing Organization Address [facility] Co de Phone Number [facility] [place] [address] * (ABNORMAL) Calcium, ionized (01/28/2025 11:57 PM CDT) Calcium, Ionized 4.26(L) 4.50 - 5.10 mg/dL Blood 01/28/2025 11:5 7 PM CDT 01/29/2025 12:18 AM CDT us Lucy Haas AUDIO VISUAL AIDS DIRECTOR LAB BLOOD ORDERABLES Final Res ult Performing Organization Address [facility] Co de Phone Number [facility] [place] [address] * (ABNORMAL) Lactate, whole blood (01/28/2025 11:57 PM CDT) Pathologist [facility] Lactate, bld 4.6(C) 0.7 - 2.0 mmol/L Blood 01/28/2025 11:5 7 PM CDT 01/29/2025 12:16 AM CDT Gerardo Melissa MD LAB BLOOD ORDERABLES Final Re sult Performing Organization Address [facility]/ZIP Co de Phone Number [facility] [place] [address] * (ABNORMAL) Protime-INR (01/28/2025 11:57 PM CDT) Pathologist [facility] PT 15.3(H) 10.2 - 13.5 sec INR 1.36(H) 0.90 - 1.20 [facility] Comment: Interpretive data Oral anticoagulant therapeutic ranges: Venous thromboembolism prophylaxis or treatment: 2.0-3.0 CARDIOLOGY Standard range: 2.0-3.0 High-intensity range: 2.5-3.5 Refer to indication-specific guidelines for appropriate target ranges for prosthetic heart valve replacement. Current interpretive data was last revised on 2019. Blood 01/28/2025 11:5 7 PM CDT 01/29/2025 12:28 AM CDT Lucy Haas NP LAB BLOOD ORDERABLES Final Res ult [facility] One [facility] [place] [address] * (ABNORMAL) CBC without differential (01/28/2025 11:57 PM CDT) Pathologist [facility] WBC 12.15(H) 3.80 - 9.90 K/cumm Hgb 9.2(L) 11.9 - 15.5 g/dL [facility] Hct 26.3(L) 35.6 - 45.5 % [facility] Plt 76(L) 150 - 400 K/cumm [facility] MPV 11.2 9.1 - 12.3 fL [facility] RBC 2.96(L) 3.90 - 5.20 M/cumm [facility] MCV 88.9 81.3 - 96.4 fL [facility] MCH 31.1 27.1 - 33.3 pg [facility] MCHC 35.0 32.3 - 35.7 g/dL [facility] RDW CV 14.7 11.1 - 14.9 % [facility] RDW SD 47.9 35.7 - 48.1 fL [facility] NRBC abs 0.02(H) 0.00 - 0.01 K/cumm [facility] Blood 01/28/2025 11:5 7 PM CDT 01/29/2025 12:20 AM CDT us Yes Mayelin Birmingham AUDIO VISUAL AIDS DIRECTOR LAB BLOOD ORDERABLES Final Result Performing Organization Address City/[facility]/ZIP Co de Phone Number [facility] [place] [address] * Phosphorus (01/28/2025 11:57 PM CDT) Pathologist [facility] Phosphorus, pl 4.1 2.3 - 4.5 mg/dL Blood 01/28/2025 11:5 7 PM CDT 01/29/2025 12:20 AM CDT us Yes Mayelin Birmingham AUDIO VISUAL AIDS DIRECTOR LAB BLOOD ORDERABLES Final Result Performing Organization Address City/State/[facility] Co de Phone Number [facility] [place] [place] [address] * (ABNORMAL) Magnesium (01/28/2025 11:57 PM CDT) Pathologist [facility] Magnesium 2.8(H) 1.4 - 2.5 mg/dL Comment:Repeated and Verifie d Blood 01/28/2025 11:5 7 PM CDT 01/29/2025 12:20 AM CDT us Kenny Augustocatarina Birmingham AUDIO VISUAL AIDS DIRECTOR LAB BLOOD ORDERABLES Final Result Performing Organization Address [facility] de Phone Number [facility] [place] [address] * (ABNORMAL) Blood gas, arterial (01/28/2025 11:57 PM CDT) Pathologist [facility] pH, Art 7.32(L) 7.35 - 7.45 PCO2, Arterial 35 35 - 45 mmHg [facility] PO2, Arterial 159(H) 83 - 108 mmHg [facility] HCO3 Art (Calculated) 17(L) 20 - 30 mmol/L [facility] BE, art -8 mmol/L [facility] Comment: Interpretive Data No Reference Range Established Current Interpretive Data was last revised on 2017 O2 Sat Art (Measured) 99(H) 90 - 95 % [facility] Blood 01/28/2025 11:5 7 PM CDT 01/29/2025 12:16 AM CDT us Lucy Haas AUDIO VISUAL AIDS DIRECTOR LAB BLOOD ORDERABLES Final Res ult Performing Organization Address [facility] Co de Phone Number [facility] [place] [address] * (ABNORMAL) Basic metabolic panel (01/28/2025 11:57 PM CDT) Pathologist [facility] Sodium 143 135 - 145 mmol/L Potassium, pl 4.6 3.3 - 4.9 mmol/L [facility] Chloride 113(H) 97 - 110 mmol/L [facility] CO2 19(L) 22 - 32 mmol/L [facility] Anion gap 11 2 - 15 mmol/L [facility] BUN 18 6 - 25 mg/dL [facility] Creatinine 1.22(H) 0.60 - 1.10 mg/dL [facility] Glucose 132 70 - 199 mg/dL [facility] Comment: Interpretive Data Fasting glucose [...] 2022. Calcium 8.0(L) 8.5 - 10.3 mg/dL [facility] Blood 01/28/2025 11:5 7 PM CDT 01/29/2025 12:20 AM CDT Kenny Birmingham NP LAB BLOOD ORDERABLES Final Result Performing Organization Address [facility] Co de Phone Number [facility] [place] [address] * POCT glucose (01/28/2025 11:09 PM CDT) Glucose, POC 145 70 - 199 mg/dL Blood 01/28/2025 11:0 9 PM CDT 01/28/2025 11:09 PM CDT Gerardo Melissa MD LAB POCT ORDERABLES - DEVICE Final Result Performing Organization Address [facility]/ZIP Co de Phone Number [facility] [place] [address] * (ABNORMAL) POCT glucose (01/28/2025 10:29 PM CDT) Glucose, POC 205(H) 70 - 199 mg/dL Blood 01/28/2025 10:2 9 PM CDT 01/28/2025 10:29 PM CDT us Gerardo Melissa MD LAB POCT ORDERABLES - DEVICE Final Result [facility] Marjan [facility] Department [place] [address] * XR Abdomen 1 View AP (01/28/2025 [...] and agrees with it. Electronically signed by: eJovany Devi M.D. Lucy Haas AUDIO VISUAL AIDS DIRECTOR IMG XR PROCEDURES Final Result * (ABNORMAL) POC Blood Gas and Chemistries, Arterial - (01/28/2025 9:45 PM CDT) pH, Art POC 7.34(L) 7.35 - 7.45 pCO2, Art POC 37 35 - 45 mmHg [facility] pO2, Art POC 136(H) 83 - 108 mmHg [facility] Na, POC 141 135 - 145 mmol/L [facility] K POC 4.6 3.3 - 4.9 mmol/L [facility] Comment: Interpretive Data Not all point of care methods assess for hemolysis. Confirm with instrument and retest K+ if not consistent with clinical signs and symptoms. Current Interpretive Data was last revised on 2023. Cl, POC 115(H) 97 - 110 mmol/L [facility] Ionized Ca, POC 4.73 4.50 - 5.10 mg/dL [facility] Glucose, POC 69(L) 70 - 199 mg/dL [facility] Lactate POC 2.7(H) 0.7 - 2.0 mmol/L [facility] SO2 (eb) arterial 100(H) 90 - 95 % [facility] Base excess, POC -5.3 mmol/L [facility] HCO3, Art POC 20 20 - 30 mmol/L [facility] Hct, POC 27.0(L) 36.3 - 45.3 % [facility] Total Hb, POC 9.0(L) 11.9 - 15.5 g/dL [facility] Blood 01/28/2025 9:45 PM CDT 01/28/2025 9:45 PM CDT Gerardo Melissa MD LAB POCT ORDERABLES - DEVICE Final Result [facility] One [facility] Department [place] [address] * CTA Chest Abdominal Aorta and Bilateral Iliofemoral (01/28/2025 9:04 PM CDT) Anatomical Region Laterality Modality Body N/A Computed Tomogra phy 01/28/2025 9:50 PM CDT Impressions 01/29/2025 4:32 PM CDT 1. 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 There is unchanged reconstitution of the [place] right subclavian artery which is patent to [...] unchanged chronic occlusion of the right brachiocephalic, [place] proximal right subclavian artery and right common carotid artery. There is unchanged reconstitution of the [place] right subclavian artery which is patent to [...] is patent. 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 Electronically signed by: Antonio Ross M.D. Gerardo Melissa MD IMG CT PROCEDURES Final Resul t * (ABNORMAL) POC Blood Gas and Chemistries, Arterial - (01/28/2025 7:41 PM CDT) pH, Art POC 7.22(L) 7.35 - 7.45 pCO2, Art POC 48(H) 35 - 45 mmHg [facility] pO2, Art POC 131(H) 83 - 108 mmHg [facility] Na, POC 143 135 - 145 mmol/L [facility] K POC 4.8 3.3 - 4.9 mmol/L [facility] Comment: Interpretive Data Not all point of care methods assess for hemolysis. Confirm with instrument and retest K+ if not consistent with clinical signs and symptoms. Current Interpretive Data was last revised on 2023. Cl, POC 117(H) 97 - 110 mmol/L [facility] Ionized Ca, POC 4.60 4.50 - 5.10 mg/dL [facility] Glucose, POC 118 70 - 199 mg/dL [facility] Lactate POC 3.6(H) 0.7 - 2.0 mmol/L [facility] SO2 (eb) arterial 100(H) 90 - 95 % [facility] Base excess, POC -7.8 mmol/L [facility] HCO3, Art POC 20 20 - 30 mmol/L [facility] Hct, POC 29.0(L) 36.3 - 45.3 % [facility] Total Hb, POC 9.6(L) 11.9 - 15.5 g/dL [facility] Blood 01/28/2025 7:41 PM CDT 01/28/2025 7:41 PM CDT us Gerardo Melissa MD LAB POCT ORDERABLES - DEVICE Final Result [facility] One [facility] Department [place] [address] * Transfuse plasma Standard plasma (01/28/2025 7:07 PM CDT) Blood us [place]h Mayelin Valencia AUDIO VISUAL AIDS DIRECTOR BLOOD TRANSFUSION ORDERABLE S Final Result [facility] Department [place] [address] * Critical Care (01/28/2025 7:05 PM CDT) [...] plan with the ICU team and other medical/community health consultant staff, making frequent assessments and decisions [...] in the medical record us Lucy Haas AUDIO VISUAL AIDS DIRECTOR IN CLINIC/BEDSIDE ORDERABLES F inal Result * POCT glucose (01/28/2025 7:02 PM CDT) Glucose, POC 159 70 - 199 mg/dL Blood 01/28/2025 7:02 PM CDT 01/28/2025 7:02 PM CDT us Gerardo Melissa MD LAB POCT ORDERABLES - DEVICE Final Result [facility] [place] [address] * (ABNORMAL) Potassium, whole blood (01/28/2025 6:38 PM CDT) Potassium, bld 5.0(H) 3.3 - 4.9 mmol/L Blood 01/28/2025 6:38 PM CDT 01/28/2025 6:53 PM CDT us Yes Mayelin Birmingham AUDIO VISUAL AIDS DIRECTOR LAB BLOOD ORDERABLES Final Result Performing Organization Address City/[facility]/ZIP Co de Phone Number [facility] [place] [address] * Critical Result Callback Chemistry (01/28/2025 6:38 PM CDT) [facility] Date Notified 20250128 Time Notified 1900 [facility] TestName Lactate Whole Blood [facility] Called/Read Back Jyoti FLOWERS [facility] Credentials RN [facility] Called By [facility] Blood 01/28/2025 6:38 PM CDT 01/28/2025 6:53 PM CDT us Yes Mayelin Birmingham AUDIO VISUAL AIDS DIRECTOR LAB BLOOD ORDERABLES Final Result [facility] [place] [address] * (ABNORMAL) Lactate, whole blood (01/28/2025 6:38 PM CDT) Lactate, bld 6.4(C) 0.7 - 2.0 mmol/L Blood 01/28/2025 6:38 PM CDT 01/28/2025 6:53 PM CDT us Yes Mayelin Birmingham AUDIO VISUAL AIDS DIRECTOR LAB BLOOD ORDERABLES Final Result [facility] Department [place] [address] * Creatine kinase (CK), total (01/28/2025 6:38 PM CDT) [facility] CK 159 30 - 200 Units/L Blood 01/28/2025 6:38 PM CDT 01/28/2025 6:55 PM CDT us Yesh Mayelin Birmingham AUDIO VISUAL AIDS DIRECTOR LAB BLOOD ORDERABLES Final Result Performing Organization Address [facility] Co de Phone Number [facility] [place] [address] * (ABNORMAL) POC Blood Gas and Chemistries, Arterial - (01/28/2025 6:26 PM CDT) [facility] pH, Art POC 7.19(C) 7.35 - 7.45 pCO2, Art POC 45 35 - 45 mmHg [facility] pO2, Art POC 128(H) 83 - 108 mmHg [facility] Na, POC 142 135 - 145 mmol/L [facility] K POC 5.3(H) 3.3 - 4.9 mmol/L [facility] Comment: Interpretive Data Not all point of care methods assess for hemolysis. Confirm with instrument and retest K+ if not consistent with clinical signs and symptoms. Current Interpretive Data was last revised on 2023. Cl, POC 116(H) 97 - 110 mmol/L [facility] Ionized Ca, POC 4.60 4.50 - 5.10 mg/dL [facility] Glucose, POC 193 70 - 199 mg/dL [facility] Lactate POC 6.1(C) 0.7 - 2.0 mmol/L [facility] SO2 (eb) arterial 100(H) 90 - 95 % [facility] Base excess, POC -10.6 mmol/L [facility] HCO3, Art POC 17(L) 20 - 30 mmol/L [facility] Hct, POC 32.0(L) 36.3 - 45.3 % [facility] Total Hb, POC 10.6(L) 11.9 - 15.5 g/dL [facility] Blood 01/28/2025 6:26 PM CDT 01/28/2025 6:26 PM CDT us Gerardo Melissa MD LAB POCT ORDERABLES - DEVICE Final Result [facility] Department [place] [address] * XR Chest 1 View - in [...] Electronically signed by: Willie Alfaro M.D. us Yesh Mayelin Birmingham AUDIO VISUAL AIDS DIRECTOR IMG XR PROCEDURES Final Res ult * POCT glucose (01/28/2025 6:14 PM CDT) Glucose, POC 198 70 - 199 mg/dL Blood 01/28/2025 6:14 PM CDT 01/28/2025 6:14 PM CDT us Gerardo Melissa MD LAB POCT ORDERABLES - DEVICE Final Result [facility] Department [place] [address] * eGFR (01/28/2025 5:57 PM CDT) eGFR 64 >=60 mL/min/1. 73 m2 Comment: [...] PM CDT 01/28/2025 6:14 PM CDT us Kenny Birmingham NP LAB BLOOD ORDERABLES Final Result Performing Organization Address [facility] Co de Phone Number [facility] [place] [place] [address] * (ABNORMAL) aPTT (01/28/2025 5:57 PM CDT) [...] ORDERABLES Final Re sult Performing Organization Address [facility] Co de Phone Number [facility] [place] [place] [address] * (ABNORMAL) Protime-INR (01/28/2025 5:57 PM CDT) PT 19.1(H) 10.2 - 13.5 sec INR 1.71(H) 0.90 - 1.20 [facility] Comment: Interpretive data Oral anticoagulant therapeutic ranges: Venous thromboembolism prophylaxis or treatment: 2.0-3.0 CARDIOLOGY Standard range: 2.0-3.0 High-intensity range: 2.5-3.5 Refer to indication-specific guidelines for appropriate target ranges for prosthetic heart valve replacement. Current interpretive data was last revised on 2019. Blood 01/28/2025 5:57 PM CDT 01/28/2025 6:14 PM CDT us Yes Mayelin Birmingham AUDIO VISUAL AIDS DIRECTOR LAB BLOOD ORDERABLES Final Result Performing Organization Address [facility] Co de Phone Number [facility] [place] [address] * (ABNORMAL) CBC without differential (01/28/2025 5:57 PM CDT) Pathologist [facility] WBC 8.09 3.80 - 9.90 K/cumm Hgb 11.0(L) 11.9 - 15.5 g/dL [facility] Hct 32.8(L) 35.6 - 45.5 % [facility] Plt 76(L) 150 - 400 K/cumm [facility] MPV 10.9 9.1 - 12.3 fL [facility] RBC 3.63(L) 3.90 - 5.20 M/cumm [facility] MCV 90.4 81.3 - 96.4 fL [facility] MCH 30.3 27.1 - 33.3 pg [facility] MCHC 33.5 32.3 - 35.7 g/dL [facility] RDW CV 13.9 11.1 - 14.9 % [facility] RDW SD 46.0 35.7 - 48.1 fL [facility] NRBC abs 0.02(H) 0.00 - 0.01 K/cumm [facility] Blood 01/28/2025 5:57 PM CDT 01/28/2025 6:14 PM CDT us Yes Mayelin Birmingham NP LAB BLOOD ORDERABLES Final Result Performing Organization Address City/[facility]/ZIP Co de Phone Number [facility] Department [place] [address] * Type and screen (01/28/2025 5:57 PM CDT) Pathologist [facility] Taiwo, indirect Negative ABO Rh B Positive [facility] Blood 01/28/2025 5:57 PM CDT 01/28/2025 6:14 PM CDT Narrative [facility] - 01/28/2025 7:28 PM CDT Has the patient had Daratumumab or Isatuximab in the past 6 months?->Unknown Karla Trevino AUDIO VISUAL AIDS DIRECTOR LAB BLOOD BANK TEST ORDERABLE S Final Result Performing Organization Address City/[facility] Co de Phone Number [facility] [place] [address] * (ABNORMAL) Phosphorus (01/28/2025 5:57 PM CDT) Phosphorus, pl 5.7(H) 2.3 - 4.5 mg/dL Blood 01/28/2025 5:57 PM CDT 01/28/2025 6:14 PM CDT Yes Mayelin Birmingham AUDIO VISUAL AIDS DIRECTOR LAB BLOOD ORDERABLES Final Result Performing Organization Address [facility] de Phone Number [facility] [place] [place] [address] * (ABNORMAL) Magnesium (01/28/2025 5:57 PM CDT) Magnesium 1.3(L) 1.4 - 2.5 mg/dL Blood 01/28/2025 5:57 PM CDT 01/28/2025 6:14 PM CDT [facility] Mayelin Birmingham AUDIO VISUAL AIDS DIRECTOR LAB BLOOD ORDERABLES Final Result Performing Organization Address [facility] de Phone Number [place] [address] * (ABNORMAL) Basic metabolic panel (01/28/2025 5:57 PM CDT) Sodium 147(H) 135 - 145 mmol/L Potassium, pl 4.6 3.3 - 4.9 mmol/L [facility] Chloride 117(H) 97 - 110 mmol/L [facility] Comment:Repeated and Verifie d CO2 22 22 - 32 mmol/L [facility] Anion gap 8 2 - 15 mmol/L [facility] BUN 15 6 - 25 mg/dL [facility] Creatinine 0.97 0.60 - 1.10 mg/dL [facility] Glucose 180 70 - 199 mg/dL [facility] Comment: Interpretive Data Fasting glucose [...] 2022. Calcium 8.0(L) 8.5 - 10.3 mg/dL [facility] Blood 01/28/2025 5:57 PM CDT 01/28/2025 6:14 PM CDT us Yesh Mayelin Birmingham AUDIO VISUAL AIDS DIRECTOR LAB BLOOD ORDERABLES Final Result [facility] Department [place] [address] * Prepare plasma: 1 Units Standard plasma (01/28/2025 5:18 PM CDT) [facility] Product code [id number] Unit Number [id number] [facility] Product Blood Type BPOS [facility] Dispense Status PRESUMED TRANSFUSED [facility] Blood Venous blood specimen / Unknown 01/28/2025 5:18 PM CDT 01/28/2025 5:18 PM CDT Narrative [facility] - 01/29/2025 6:00 AM CDT Is this plasma order intended for a COVID-19 patient as convalescent plasma?->Standard plasma Special Requirements Needed?->No Date required:-[id number] FFP # of Units:-1-Units Reasons:-Active major bleeding with coagulopathy} us Yesh Mayelin Birmingham NP BLOOD BANK PRODUCT ORDERABL ES Final Result [facility] Department [place] [address] * (ABNORMAL) POC Blood Gas and Chemistries, Arterial - (01/28/2025 5:07 PM CDT) pH, Art POC 7.31(L) 7.35 - 7.45 pCO2, Art POC 40 35 - 45 mmHg [facility] pO2, Art POC 447(H) 83 - 108 mmHg [facility] Na, POC 141 135 - 145 mmol/L [facility] K POC 4.6 3.3 - 4.9 mmol/L [facility] Comment: Interpretive Data Not all point of care methods assess for hemolysis. Confirm with instrument and retest K+ if not consistent with clinical signs and symptoms. Current Interpretive Data was last revised on 2023. Cl, POC 116(H) 97 - 110 mmol/L [facility] Ionized Ca, POC 4.82 4.50 - 5.10 mg/dL [facility] Glucose, POC 187 70 - 199 mg/dL [facility] Lactate POC 3.1(H) 0.7 - 2.0 mmol/L [facility] SO2 (eb) arterial 100(H) 90 - 95 % [facility] Base excess, POC -5.8 mmol/L [facility] HCO3, Art POC 20 20 - 30 mmol/L [facility] Hct, POC 35.0(L) 36.3 - 45.3 % [facility] Total Hb, POC 11.6(L) 11.9 - 15.5 g/dL [facility] Blood 01/28/2025 5:07 PM CDT 01/28/2025 5:07 PM CDT us Gerardo Melissa MD LAB POCT ORDERABLES - DEVICE Final Result Performing Organization Address City/[facility]/ZIP Co de Phone Number [facility] Department [place] [address] * (ABNORMAL) POC Blood Gas and Chemistries, Arterial - (01/28/2025 4:32 PM CDT) pH, Art POC 7.23(L) 7.35 - 7.45 pCO2, Art POC 49(H) 35 - 45 mmHg [facility] pO2, Art POC 359(H) 83 - 108 mmHg [facility] Na, POC 143 135 - 145 mmol/L [facility] K POC 5.6(H) 3.3 - 4.9 mmol/L [facility] Comment: Interpretive Data Not all point of care methods assess for hemolysis. Confirm with instrument and retest K+ if not consistent with clinical signs and symptoms. Current Interpretive Data was last revised on 2023. Cl, POC 116(H) 97 - 110 mmol/L [facility] Ionized Ca, POC 4.30(L) 4.50 - 5.10 mg/dL [facility] Glucose, POC 273(H) 70 - 199 mg/dL [facility] Lactate POC 5.8(C) 0.7 - 2.0 mmol/L [facility] SO2 (eb) arterial 100(H) 90 - 95 % [facility] Base excess, POC -6.8 mmol/L [facility] HCO3, Art POC 20 20 - 30 mmol/L [facility] Hct, POC 28.0(L) 36.3 - 45.3 % [facility] Total Hb, POC 9.3(L) 11.9 - 15.5 g/dL [facility] Blood 01/28/2025 4:32 PM CDT 01/28/2025 4:32 PM CDT us Gerardo Melissa MD LAB POCT ORDERABLES - DEVICE Final Result [facility] Department [place] [address] * Transfuse RBC (01/28/2025 4:01 PM CDT) Blood us Gian Carroll MD BLOOD TRANSFUSION ORDERABL ES Final Result [facility] Department [place] [address] * (ABNORMAL) POC Blood Gas and Chemistries, Arterial - (01/28/2025 3:53 PM CDT) pH, Art POC 7.18(C) 7.35 - 7.45 pCO2, Art POC 43 35 - 45 mmHg [facility] pO2, Art POC 375(H) 83 - 108 mmHg [facility] Na, POC 140 135 - 145 mmol/L [facility] K POC 6.0(H) 3.3 - 4.9 mmol/L [facility] Comment: Interpretive Data Not all point of care methods assess for hemolysis. Confirm with instrument and retest K+ if not consistent with clinical signs and symptoms. Current Interpretive Data was last revised on 2023. Cl, POC 117(H) 97 - 110 mmol/L [facility] Ionized Ca, POC 4.75 4.50 - 5.10 mg/dL [facility] Glucose, POC 280(H) 70 - 199 mg/dL [facility] Lactate POC 6.0(C) 0.7 - 2.0 mmol/L [facility] SO2 (eb) arterial 100(H) 90 - 95 % [facility] Base excess, POC -11.5 mmol/L [facility] HCO3, Art POC 16(L) 20 - 30 mmol/L [facility] Hct, POC 23.0(L) 36.3 - 45.3 % [facility] Total Hb, POC 7.8(L) 11.9 - 15.5 g/dL [facility] Blood 01/28/2025 3:53 PM CDT 01/28/2025 3:53 PM CDT us Gerardo Melissa MD LAB POCT ORDERABLES - DEVICE Final Result Performing Organization Address [facility] [place] [address] * Transfuse plasma (01/28/2025 3:18 PM CDT) Blood Gian Carroll MD BLOOD TRANSFUSION ORDERABL ES Final Result Performing Organization Address [facility] [place] [address] * Prepare plasma: 1 Units (01/28/2025 3:02 PM CDT) [facility] Product code [id number] Unit Number [id number] [facility] Product Blood Type BPOS [facility] Dispense Status PRESUMED TRANSFUSED [facility] Blood Venous blood specimen / Unknown 01/28/2025 3:02 PM CDT 01/28/2025 3:01 PM CDT Narrative [facility] - 01/29/2025 4:01 AM CDT Date required:-[id number] FFP # of Units:-1-Units Reasons:-Immediate need for surgical intervention us Gian Carroll MD BLOOD BANK PRODUCT ORDERAB LES Final Result Performing Organization Address [facility] [place] [address] * (ABNORMAL) POC Blood Gas and Chemistries, Arterial - (01/28/2025 2:47 PM CDT) pH, Art POC 7.10(C) 7.35 - 7.45 pCO2, Art POC 44 35 - 45 mmHg [facility] pO2, Art POC 394(H) 83 - 108 mmHg [facility] Na, POC 137 135 - 145 mmol/L [facility] K POC 5.2(H) 3.3 - 4.9 mmol/L [facility] Comment: Interpretive Data Not all point of care methods assess for hemolysis. Confirm with instrument and retest K+ if not consistent with clinical signs and symptoms. Current Interpretive Data was last revised on 2023. Cl, POC 114(H) 97 - 110 mmol/L [facility] Ionized Ca, POC 4.53 4.50 - 5.10 mg/dL [facility] Glucose, POC 212(H) 70 - 199 mg/dL [facility] Lactate POC 4.2(C) 0.7 - 2.0 mmol/L [facility] SO2 (eb) arterial 100(H) 90 - 95 % [facility] Base excess, POC -15.2 mmol/L [facility] HCO3, Art POC 13(L) 20 - 30 mmol/L [facility] Hct, POC 29.0(L) 36.3 - 45.3 % [facility] Total Hb, POC 9.5(L) 11.9 - 15.5 g/dL [facility] Blood 01/28/2025 2:47 PM CDT 01/28/2025 2:47 PM CDT us Gerardo Melissa MD LAB POCT ORDERABLES - DEVICE Final Result [facility] [place] [address] * (ABNORMAL) POCT prothrombin time (01/28/2025 2:46 PM CDT) PT, POC 25.2(H) 11.7 - 16.6 sec INR, POC 1.9(H) 0.9 - 1.2 [facility] Blood 01/28/2025 2:46 PM CDT 01/28/2025 2:46 PM CDT us Gerardo Melissa MD LAB POCT ORDERABLES - DEVICE Final Result [facility] [place] [place] [address] * (ABNORMAL) POCT Partial thromboplastin time (PTT) (01/28/2025 2:46 PM CDT) [facility] APTT, POC 51.1(H) 32.5 - 46.1 sec Blood 01/28/2025 2:46 PM CDT 01/28/2025 2:46 PM CDT us Gerardo Melissa MD LAB POCT ORDERABLES - DEVICE Final Result Performing Organization Address City/[facility] Co de Phone Number [facility] [place] [place] [address] * POCT Activated clotting time, low range (01/28/2025 2:45 PM CDT) [facility] ACT 168 123 - 168 sec POC Device Number [id number] [facility] Blood 01/28/2025 2:45 PM CDT 01/28/2025 2:45 PM CDT us Gerardo Melissa MD LAB POCT ORDERABLES - DEVICE Final Result Performing Organization Address [facility] Co de Phone Number [place] [address] * (ABNORMAL) POCT hemoglobin, hematocrit and platelet count (01/28/2025 2:44 PM CDT) [facility] Hgb, POC 9.1(L) 11.9 - 15.5 g/dL Hematocrit POC 27.9(L) 35.6 - 45.5 % [facility] Platelet POC 134(L) 150 - 400 K/cumm [facility] Blood 01/28/2025 2:44 PM CDT 01/28/2025 2:44 PM CDT us Gerardo Melissa MD LAB POCT ORDERABLES - DEVICE Final Result Performing Organization Address [facility] Co de Phone Number [facility] [place] [place] [address] * POCT Activated clotting time, low range (01/28/2025 2:41 PM CDT) ACT 166 123 - 168 sec POC Device Number [id number] [facility] Blood 01/28/2025 2:41 PM CDT 01/28/2025 2:41 PM CDT Gerardo Melissa MD LAB POCT ORDERABLES - DEVICE Final Result Performing Organization Address [facility] [place] [address] * POCT Activated clotting time, low range (01/28/2025 2:29 PM CDT) ACT 153 123 - 168 sec POC Device Number [id number] [facility] Blood 01/28/2025 2:29 PM CDT 01/28/2025 2:29 PM CDT Gerardo Melissa MD LAB POCT ORDERABLES - DEVICE Final Result Performing Organization Address [facility] [place] [address] * Transfuse RBC (01/28/2025 2:17 PM CDT) Blood Gian Carroll MD BLOOD TRANSFUSION ORDERABL ES Final Result Performing Organization Address [facility] [place] [address] * (ABNORMAL) POCT Activated clotting time, low range (01/28/2025 2:05 PM CDT) ACT 314(H) 123 - 168 sec POC Device Number [id number] [facility] Blood 01/28/2025 2:05 PM CDT 01/28/2025 2:05 PM CDT us Gerardo Melissa MD LAB POCT ORDERABLES - DEVICE Final Result [facility] [place] [address] * Transfuse RBC (01/28/2025 1:59 PM CDT) Blood us Gian Carroll MD BLOOD TRANSFUSION ORDERABL ES Final Result Performing Organization Address [facility] Co de Phone Number [facility] [place] [address] * (ABNORMAL) POC Blood Gas and Chemistries, Arterial - (01/28/2025 1:47 PM CDT) pH, Art POC 7.22(L) 7.35 - 7.45 pCO2, Art POC 43 35 - 45 mmHg [facility] pO2, Art POC 421(H) 83 - 108 mmHg [facility] Na, POC 140 135 - 145 mmol/L [facility] K POC 4.5 3.3 - 4.9 mmol/L [facility] Comment: Interpretive Data Not all point of care methods assess for hemolysis. Confirm with instrument and retest K+ if not consistent with clinical signs and symptoms. Current Interpretive Data was last revised on 2023. Cl, POC 113(H) 97 - 110 mmol/L [facility] Ionized Ca, POC 4.74 4.50 - 5.10 mg/dL [facility] Glucose, POC 168 70 - 199 mg/dL [facility] Lactate POC 2.3(H) 0.7 - 2.0 mmol/L [facility] SO2 (eb) arterial 100(H) 90 - 95 % [facility] Base excess, POC -9.5 mmol/L [facility] HCO3, Art POC 18(L) 20 - 30 mmol/L [facility] Hct, POC 27.0(L) 36.3 - 45.3 % [facility] Total Hb, POC 9.0(L) 11.9 - 15.5 g/dL [facility] Blood 01/28/2025 1:47 PM CDT 01/28/2025 1:47 PM CDT us Gerardo Melissa MD LAB POCT ORDERABLES - DEVICE Final Result Performing Organization Address [facility] Co de Phone Number [facility] [place], [place] [id number] * (ABNORMAL) POCT prothrombin time (01/28/2025 1:46 PM CDT) Pathologist [facility] PT, POC >80.0(H) 11.7 - 16.6 sec INR, POC >10.0(C) 0.9 - 1.2 [facility] Blood 01/28/2025 1:46 PM CDT 01/28/2025 1:46 PM CDT us Gerardo Melissa MD LAB POCT ORDERABLES - DEVICE Final Result Performing Organization Address [facility] Co de Phone Number [facility] [place], [place] [id number] * (ABNORMAL) POCT Partial thromboplastin time (PTT) (01/28/2025 1:46 PM CDT) Pathologist [facility] APTT, POC >400.0(C) 32.5 - 46.1 sec Blood 01/28/2025 1:46 PM CDT 01/28/2025 1:46 PM CDT us Gerardo Melissa MD LAB POCT ORDERABLES - DEVICE Final Result Performing Organization Address [facility] Co de Phone Number [facility] [place], [place] [id number] * (ABNORMAL) POCT Activated clotting time, low range (01/28/2025 1:39 PM CDT) ACT 363(H) 123 - 168 sec POC Device Number [id number] [facility] Blood 01/28/2025 1:39 PM CDT 01/28/2025 1:39 PM CDT us Gerardo Melissa MD LAB POCT ORDERABLES - DEVICE Final Result Performing Organization Address City/[facility] Co de Phone Number [facility] [place] [address] * (ABNORMAL) POCT Activated clotting time, low range (01/28/2025 1:29 PM CDT) [facility] ACT 234(H) 123 - 168 sec POC Device Number [id number] [facility] Blood 01/28/2025 1:29 PM CDT 01/28/2025 1:29 PM CDT us Gerardo Melissa MD LAB POCT ORDERABLES - DEVICE Final Result Performing Organization Address [facility] Co de Phone Number [place] [address] * (ABNORMAL) POC Blood Gas and Chemistries, Arterial - (01/28/2025 12:59 PM CDT) [facility] pH, Art POC 7.32(L) 7.35 - 7.45 pCO2, Art POC 38 35 - 45 mmHg [facility] pO2, Art POC 197(H) 83 - 108 mmHg [facility] Na, POC 140 135 - 145 mmol/L [facility] K POC 4.5 3.3 - 4.9 mmol/L [facility] Comment: Interpretive Data Not all point of care methods assess for hemolysis. Confirm with instrument and retest K+ if not consistent with clinical signs and symptoms. Current Interpretive Data was last revised on 2023. Cl, POC 115(H) 97 - 110 mmol/L [facility] Ionized Ca, POC 4.91 4.50 - 5.10 mg/dL [facility] Glucose, POC 151 70 - 199 mg/dL [facility] Lactate POC 1.8 0.7 - 2.0 mmol/L [facility] SO2 (eb) arterial 100(H) 90 - 95 % [facility] Base excess, POC -6.0 mmol/L [facility] HCO3, Art POC 20 20 - 30 mmol/L [facility] Hct, POC 29.0(L) 36.3 - 45.3 % [facility] Total Hb, POC 9.5(L) 11.9 - 15.5 g/dL [facility] Blood 01/28/2025 12:5 9 PM CDT 01/28/2025 12:59 PM CDT us Gerardo Melissa MD LAB POCT ORDERABLES - DEVICE Final Result Performing Organization Address [facility] Co de Phone Number [facility] [place] [address] * (ABNORMAL) POCT Activated clotting time, low range (01/28/2025 12:53 PM CDT) ACT 305(H) 123 - 168 sec POC Device Number [id number] [facility] [facility] Blood 01/28/2025 12:5 3 PM CDT 01/28/2025 12:53 PM CDT us Gerardo Melissa MD LAB POCT ORDERABLES - DEVICE Final Result Performing Organization Address City/[facility]/ZIP Co de Phone Number [facility] [place] [address] * (ABNORMAL) POCT Activated clotting time, low range (01/28/2025 12:27 PM CDT) ACT 302(H) 123 - 168 sec POC Device Number [id number] [facility] Blood 01/28/2025 12:2 7 PM CDT 01/28/2025 12:27 PM CDT us Gerardo Melissa MD LAB POCT ORDERABLES - DEVICE Final Result Performing Organization Address [facility] [place] [address] * (ABNORMAL) POCT Activated clotting time, low range (01/28/2025 12:12 PM CDT) ACT 279(H) 123 - 168 sec POC Device Number [id number] [facility] Blood 01/28/2025 12:1 2 PM CDT 01/28/2025 12:12 PM CDT us Gerardo Melissa MD LAB POCT ORDERABLES - DEVICE Final Result Performing Organization Address [facility] [place] [address] * (ABNORMAL) POCT Activated clotting time, low range (01/28/2025 11:34 AM CDT) ACT 310(H) 123 - 168 sec POC Device Number [id number] [facility] Blood 01/28/2025 11:3 4 AM CDT 01/28/2025 11:34 AM CDT us Gerardo Melissa MD LAB POCT ORDERABLES - DEVICE Final Result Performing Organization Address [facility] [place] [address] * [place] AN PROCEDURE PLACEHOLDER (01/28/2025 10:44 AM CDT) [...] code: DES placement and diagnostic exam, non-congenital (63371) ICD code(s) for medical necessity: I70.0 - [...] inferior: normal 16- Apical septal: normal 17- Converse: normal Valves: Aortic Valve: Annulus: normal Leaflet [...] Art POC 47(H) 35 - 45 mmHg [facility] pO2, Art POC 143(H) 83 - 108 mmHg [facility] Na, POC 141 135 - 145 mmol/L [facility] K POC 4.1 3.3 - 4.9 mmol/L [facility] Comment: Interpretive Data Not all point of care methods assess for hemolysis. Confirm with instrument and retest K+ if not consistent with clinical signs and symptoms. Current Interpretive Data was last revised on 2023. Cl, POC 112(H) 97 - 110 mmol/L [facility] Ionized Ca, POC 5.02 4.50 - 5.10 mg/dL [facility] Glucose, POC 104 70 - 199 mg/dL [facility] Lactate POC 1.2 0.7 - 2.0 mmol/L [facility] SO2 (eb) arterial 100(H) 90 - 95 % [facility] Base excess, POC -5.9 mmol/L [facility] HCO3, Art POC 20 20 - 30 mmol/L [facility] Hct, POC 32.0(L) 36.3 - 45.3 % [facility] Total Hb, POC 10.6(L) 11.9 - 15.5 g/dL [facility] Blood 01/28/2025 10:4 4 AM CDT 01/28/2025 10:44 AM CDT us Gerardo Melissa MD LAB POCT ORDERABLES - DEVICE Final Result Performing Organization Address [facility]/ZIP Co de Phone Number [facility] [place] [place] [address] * POCT Activated clotting time, low range (01/28/2025 10:31 AM CDT) ACT 144 123 - 168 sec POC Device Number [id number] [facility] Blood 01/28/2025 10:3 1 AM CDT 01/28/2025 10:31 AM CDT us Gerardo Melissa MD LAB POCT ORDERABLES - DEVICE Final Result Performing Organization Address [facility] Co de Phone Number [facility] [place] [address] * POCT Activated clotting time, low range (01/28/2025 10:23 AM CDT) ACT 136 123 - 168 sec POC Device Number [id number] [facility] Blood 01/28/2025 10:2 3 AM CDT 01/28/2025 10:23 AM CDT us Gerardo Melissa MD LAB POCT ORDERABLES - DEVICE Final Result Performing Organization Address City/[facility] Co de Phone Number [facility] [place] [place] [address] * BW AN SHEATH INTRODUCER PERFORMABLE, [place] AN PROCEDURE PLACEHOLDER (01/28/2025 9:29 AM CDT) Malika Broderick CRNA - 01/28/2025 9:29 AM CDT Malika [...] MD ANESTHESIA ORDERABLES Suni l Result * [place] AN CENTRAL LINE QUADRUPLE LUMEN, [place] AN PROCEDURE PLACEHOLDER (01/28/2025 9:28 AM CDT) Malika Broderick CRNA - 01/28/2025 9:28 AM CDT Malika Turpin CRNA 01/28/2025 9:29 AM Central Venous Line Patient location: OR Indication: central venous access and CVP monitoring Staff: Supervising provider: Kylee Garcia MD Placed by: SOLE CONFORMING MACHINE OPERATOR: Malika Turpin CRNA Procedure prep: Patient position: [...] ORDERABLES Edit ed Result - Final * [place] AN PROCEDURE PLACEHOLDER (01/28/2025 9:05 AM CDT) [...] ORDERABLES Edit ed Result - Final * TN AN ELECTIVE ENDOTRACHEAL AIRWAY, [place] AN PROCEDURE PLACEHOLDER (01/28/2025 9:04 AM CDT) [...] For OR (01/28/2025 6:59 AM CDT) Narrative [facility] PROSOLV_CARDIOREPORT_CONS SCIMAGE - 01/28/2025 6:59 AM CDT Procedure Auto Finalized by Rule: DONALD CV DES DURING CASE OR Please see the Anesthesiologist's Procedure Note for the results. us Gian Carroll MD CV ECHO PROCEDURES Final R esult [facility] PROSOLV_CARDIOREPORT_CONS SCIMAGE * Prepare RBC: 6 Units (01/28/2025 6:57 AM CDT) Product code [id number] [facility] Unit Number [id number] [facility] Product Blood Type BNEG [facility] TherapeuticsDEPARTMENT [facility] V[facility]ER[facility]FF[facility] Dispense Status PRESUMED TRANSFUSED [facility] Product code [id number] [facility] Unit Number [id number] [facility] Product Blood Type BNEG [facility] Dispense Status PRESUMED TRANSFUSED [facility] Product code [id number] [facility] Unit Number [id number] [facility] Product Blood Type BNEG [facility] Dispense Status PRESUMED TRANSFUSED [facility] Product code T1194H21 KRISTIE POPE Unit Number [id number] [facility]RISTIE POPE Product Blood Type BNEG [facility]RIST[facility] POPE Dispense Status PRESUMED TRANSFUSED KRISTIE MALCOLM Product code [id number] Unit Number [id number] KRISTIE MALCOLM Product Blood Type BNEG KRISTIE POPE Dispense Status RETURNED KRISTIE MALCOLM Product code [id number] KRISTIE MALCOLM Unit Number [id number] KRISTIE MALCOLM Product Blood Type BNEG KRISTIE POPE Dispense Status RETURNED [facility]ST[facility] POPE Blood 01/28/2025 6:57 AM CDT 01/28/2025 6:56 AM CDT Narrative KRISTIE MALCOLM - 01/28/2025 9:00 PM CDT Specify Procedure:->redo sternotomy, 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 (All products are leukoreduced and CMV- safe)- >No Date required:-[id number] LRRBC # of [id number] Reasons:-Hold for procedure (specify procedure)} us Gerardo Melissa MD BLOOD BANK PRODUCT ORDERABLES Final Result Performing Organization Address City/[facility] de Phone Number KRISTIE POPE [facility] [place] [address] * TYPE AND SCREEN 14 DAY (01/24/2025 4:44 PM CDT) Taiwo, indirect Negative ABO Rh B Positive KRISTIE POPE Blood 01/24/2025 4:44 PM CDT 01/24/2025 5:22 PM CDT Narrative KRISTIE MALCOLM - 01/24/2025 6:33 PM CDT Is this test being ordered in advance for a procedure?->Yes Expected date of procedure:->01/28/25 Has the patient been transfused in the past 3 months?->No Has the patient been in the past 3 months?->No Beryl Duong NP LAB BLOOD BANK TEST ORDERAB LES Final Result [facility] [place] [address] * eGFR (01/24/2025 4:44 PM CDT) Pathologist [facility] eGFR 76 >=60 mL/min/1. 73 m2 Comment: [...] ORDERABLES Final Result Performing Organization Address [facility] Co de Phone Number [facility] [place] [address] * (ABNORMAL) Differential, auto (01/24/2025 4:44 PM CDT) Pathologist [facility] Neutrophil abs 4.92 1.50 - 6.50 K/cumm Imm gran abs 0.03 0.00 - 0.10 K/cumm [facility] Lymphocyte abs 2.46 0.80 - 3.30 K/cumm [facility] Monocyte abs 0.92(H) 0.20 - 0.80 K/cumm [facility] Eosinophil abs 0.33 0.00 - 0.50 K/cumm [facility] Basophil abs 0.09 0.00 - 0.10 K/cumm [facility] Neutrophil pct 56.3 % [facility] Comment: Interpretive Data Percent cell count reference ranges are not reported, since discordance with absolute values may lead to misinterpretation of CBC data. Current Interpretive Data was last revised on 2017. Imm gran pct 0.3 % [facility] Comment: Interpretive Data Percent cell count reference ranges are not reported, since discordance with absolute values may lead to misinterpretation of CBC data. Current Interpretive Data was last revised on 2017. Lymphocyte pct 28.1 % [facility] Comment: Interpretive Data Percent cell count reference ranges are not reported, since discordance with absolute values may lead to misinterpretation of CBC data. Current Interpretive Data was last revised on 2017. Monocyte pct 10.5 % [facility] Comment: Interpretive Data Percent cell count reference ranges are not reported, since discordance with absolute values may lead to misinterpretation of CBC data. Current Interpretive Data was last revised on 2017. Eosinophil pct 3.8 % [facility] Comment: Interpretive Data Percent cell count reference ranges are not reported, since discordance with absolute values may lead to misinterpretation of CBC data. Current Interpretive Data was last revised on 2017. Basophil pct 1.0 % [facility] Comment: Interpretive Data Percent cell count reference ranges are not reported, since discordance with absolute values may lead to misinterpretation of CBC data. Current Interpretive Data was last revised on 2017. Blood 01/24/2025 4:44 PM CDT 01/24/2025 5:28 PM CDT us Beryl Duong NP LAB BLOOD ORDERABLES Final Result [facility]ST[facility] POPE [facility] Department [place] [address] * CPAP aPTT algorithm (01/24/2025 4:44 PM CDT) aPTT 33 26 - 38 sec Comment: Interpretive Data Heparin therapeutic range: 66.0 - 100.0 seconds. Range based on correlation with therapeutic heparin activity range of 0.3 - 0.7 Units/mL. Current interpretive data was last revised on 2023. Blood 01/24/2025 4:44 PM CDT 01/24/2025 5:32 PM CDT Beryl Duong NP LAB BLOOD ORDERABLES Final Result [facility] Department [place] [address] * (ABNORMAL) Urinalysis reflex to microscopic and culture Urine, clean voided (01/24/2025 4:44 PM CDT) Color, ur Yellow Yellow Clarity, ur Clear Clear [facility] Specific gravity, ur 1.019 1.003 - 1.030 [facility] pH, urine 6.0 [facility] Comment: Interpretive Data U rine pH is affected by diet, medications, systemic acid-base disturbances, and renal tubular function. pH may affect urinary stone formation. For example, urine pH below 6.0 may help reduce the tendency for calcium phosphate stones and pH greater than 6.0 may reduce the tendency for uric acid stone formation. Source: [facility] Current Interpretive Data was last revised on 2017 Protein, ur ql 1+(A) Negative [facility] Glucose, ur ql Negative Negative [facility] Ketones, ur Negative Negative [facility] Bilirubin, ur Negative Negative [facility] Blood, ur Negative Negative [facility] Urobilinogen, ur <2.0 <2.0 mg/dL [facility] Nitrite, ur Negative Negative [facility] Leukocyte esterase, ur 1+(A) Negative [facility] UA reflex comment Reflex to microscopic UA will be performed. [facility] Urine, clean voided 01/24/2025 4:44 PM CDT 01/24/2025 5:17 PM CDT Beryl Duong NP LAB MICROBIOLOGY - GENERAL ORDERABLES Final Result Performing Organization Address City/[facility]/ZIP Co de Phone Number [facility] [place] [place] [address] * CBC with auto differential (01/24/2025 4:44 PM CDT) Pathologist [facility] WBC 8.75 3.80 - 9.90 K/cumm Hgb 11.9 11.9 - 15.5 g/dL [facility] Hct 36.0 35.6 - 45.5 % [facility] Plt 276 150 - 400 K/cumm [facility] MPV 10.6 9.1 - 12.3 fL [facility] RBC 3.99 3.90 - 5.20 M/cumm [facility] MCV 90.2 81.3 - 96.4 fL [facility] MCH 29.8 27.1 - 33.3 pg [facility] MCHC 33.1 32.3 - 35.7 g/dL [facility] RDW CV 12.8 11.1 - 14.9 % [facility] RDW SD 42.3 35.7 - 48.1 fL [facility] NRBC abs 0.00 0.00 - 0.01 K/cumm [facility] Blood 01/24/2025 4:44 PM CDT 01/24/2025 5:28 PM CDT Beryl Duong NP LAB BLOOD ORDERABLES Final Result [facility] [place] [address] * (ABNORMAL) Urinalysis, microscopic only (01/24/2025 4:44 PM CDT) WBC, ur 6-10(A) 0 - 5 /HPF RBC, ur 0-2 0 - 2 /HPF [facility] Epithelial cells, squamous, ur 1-5 0 - 5 /HPF [facility] Mucous, ur Present(A) [facility] Hyaline casts, ur 11-20(A) 0 - 10 /LPF [facility] Culture Reflex Comment Reflex conditions for urine culture (WBC >10) not met. [facility] Urine, clean voided 01/24/2025 4:44 PM CDT 01/24/2025 5:17 PM CDT Beryl Duong NP LAB URINE ORDERABLES Final Result Performing Organization Address [facility] de Phone Number [facility] [place] [place] [address] * Protime-INR (01/24/2025 4:44 PM CDT) PT 11.7 10.2 - 13.5 sec INR 1.04 0.90 - 1.20 [facility] Comment: Interpretive data Oral anticoagulant [...] ORDERABLES Final Result Performing Organization Address [facility] de Phone Number [facility] [place] [place] [address] * Basic metabolic panel (01/24/2025 4:44 PM CDT) Sodium 144 135 - 145 mmol/L Potassium, pl 4.4 3.3 - 4.9 mmol/L [facility] Chloride 107 97 - 110 mmol/L [facility] CO2 25 22 - 32 mmol/L [facility] Anion gap 12 2 - 15 mmol/L [facility] BUN 17 6 - 25 mg/dL [facility] Creatinine 0.84 0.60 - 1.10 mg/dL [facility] Glucose 93 70 - 199 mg/dL [facility] Comment: Interpretive Data Fasting glucose [...] 2022. Calcium 9.5 8.5 - 10.3 mg/dL [facility] Blood 01/24/2025 4:44 PM CDT 01/24/2025 5:28 PM CDT Beryl Duong AUDIO VISUAL AIDS DIRECTOR LAB BLOOD ORDERABLES Final Result [facility] Department [place] [address] * ECG 12 lead (01/24/2025 4:27 PM CDT) Ventricular Rate EKG/Min 65 BPM [facility] Atrial Rate 66 BPM [facility] TN-Interval (MSEC) 186 ms [facility] QRS-Interval (MSEC) 86 ms [facility] QT-Interval (MSEC) 424 ms [facility] QTc 440 ms [facility] P [place] 68 degrees [facility] R [place] 59 degrees [facility] T [place] 85 degrees [facility] Diagnosis Normal sinus rhythm T wave abnormality, consider anterolateral ischemia Abnormal ECG When compared with ECG of 05-NOV-2024 09:34, PREVIOUS ECG IS PRESENT Confirmed by Terrance Carbajal MD ([id number]) on 01/26/2025 4:19:29 PM [facility] 01/24/2025 4:27 PM CDT 01/26/2025 4:19 PM CDT us Beryl Duong AUDIO VISUAL AIDS DIRECTOR ECG ORDERABLES Final Resul t [facility] * HEPATITIS C AB W/REFL [...] on file for you. Please contact a labor union business representative if you would like additional testing done on this patient or contact your residential sales consultant to obtain a client custom reflex testing authorization request form. SIGNAL TO CUT-OFF 0.01 <1.00 [facility] [place] Blood specimen (specimen) 03/03/2018 10:07 AM CDT 03/03/2018 10:08 AM CDT Narrative Resulting Agency Comment Performing Organization Information: Site ID: [place] Name: [facility] Address: [address] [place] [address] Director: Kendall Marsh D.O., MPH us Hunter Schwartz MD LAB BLOOD ORDERABLES Fin al Result Performing Organization Address [facility] Co de Phone Number [facility] [place] [facility] from Last 3 Months or Most Recently Relevant to Health Maintenance Insurance NILSA [employer] MEDICARE GOLD [facility] Address: [address] [place] [address] [facility] AETNA MEDICARE GOLD Advance Directives For more information, please contact: [phone] * Full Code (Latest Code Status on File) Date Activated Date Inactivated Comments 01/28/2025 5:17 PM 02/07/2025 7:57 PM * Full Code Date Activated Date Inactivated Comments 11/05/2024 10:22 AM 11/05/2024 5:31 PM * Full Code Date Activated Date Inactivated Comments 07/25/2024 6:39 PM 07/26/2024 10:29 PM * Full Code Date Activated Date Inactivated Comments 03/13/2018 2:33 PM 03/14/2018 10:36 PM Care Teams Field Service Tech Relationship Specialty Start Date End Date Allie Chong NP [address] [place] [address] PCP - General Nurse Practitioner 07/26/24
--- OUTSIDE RECORDS SUMMARY | 2025-04-17 13:42 | XMS_ITS | Clinical Summary ---
Author Organization [facility] Address [address] [place] [address] Phone Care Team Providers Care Appliance Worker Name Role Phone Troy Dunn MD Primary Care Provider [phone] Hussain Torres MD Unavailable Allergies No known [...] needed for Dizziness. 30 Tablet 03/22/2024 Active rosuvastatin (CRESTOR) 20 MG Tablet Take 1 tablet by mouth nightly 90 Tablet 10/22/2024 Active clopidogrel (PLAVIX) 75 MG Tablet Take 1 tablet by mouth once daily 90 Tablet 02/09/2025 Active Active Problems No known active problems Encounters Date Type Department Care Team Description 02/08/2025 Refill [facility] [address] [place] [address] Troy Dunn MD Medication Refill 01/22/2025 Refill [facility] [address] [place] [address] Troy Dunn MD Medication Refill from Last 3 Months Immunizations Immunization Administration Dates Next Due Covid-19, Mrna, Lnp-s, Pf, 3 0 Mcg/0.3 Ml Dose (Black coin) 12/11/2020,11/20/2020 Influenza Vaccine less than 3 yrs 02/07/2024 Influenza Vaccine, Quadrivalent, PF 04/28/2023,1 ,03/14/2018 Influenza, Intradermal, Quad rivalent, Preservative Free 03/14/2018 Pneumococcal Vaccine Adult - 23 Valent 0 Pneumococcal conjugate PCV20 , polysaccharide [id number] conjugate, adjuvant, PF 04/28/2023 Family History Medical [...] drink = 0.6 oz pur e alcohol) [facility] Utilities Answer Date Recorded In the [...] and Family Not on file 04/28/2023 Attends Confucianism Services Not on file 04/28 Active Member [...] Total Score - Questions 1-9 0 08/01 [facility] - Occupational [...] on file 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 Gender Identity Not on file Sexual Orientation [...] Cologuard 2001 Immunochemical Fecal Occult Blood 2001 Respiratory Syncytial Virus (RSV) Immunization (Adult) (1 - Risk 50-74 years 1-dose series) 2006 Zoster Immunization (1 of 2) 2006 Medicare Initial AWV [id number] 05/02/2023 Mammogram 06/08/2023 06/08/2022 Influenza Immunization (#1) 2024 10/0 12/2023, 04/28/2023, 02/14/2020, Additional history exists SARS-COV-2 Immunization ( season) 2024 12/11/2020, 11/20/2020 Colonoscopy 05/12/2028 05/12/2023, 05/02, 05/12/2023 Colorectal Cancer Screening 05/12/2028 Hepatitis C Virus (HCV) Screening Completed 12/28/2022 Pneumococcal Immunization (50+ years) Completed 04/28/2023, 02/14/2020 Pneumococcal Immunization Combined Discontinued 04/28/2023, 02/14/2020 Hepatitis B Immunization Aged Out No longer eligible based on patient's age to complete this topic Human Papillomavirus (HPV) Immunization (No Doses Required) Completed Meningococcal Immunization (ACWY) Aged Out No longer eligible based on patient's age to complete this topic Rotavirus Immunization Aged Out No lo nger eligible based on patient's age to complete this topic Procedures Procedure Name Priority Date/Time Associated Diagnosis Comments GI IMAGING - COLONOSCOPY Routine 05/12/2023 11:02 AM 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 Comment: Signal/Cutoff ratio < 0.79 [...] MD CHEMISTRY ORDERABLES Final Re sult [facility] [address] [place] [address], from Last 3 Months or Most Recently Relevant to Health Maintenance Insurance MEDICARE C [employer]ET[employer] Care Teams Appliance Worker Relationship Specialty Start Date End Date Troy Dunn MD [address] [facility] [address] [place] [address] PCP - General Family Medicine 12/28/22 Hussain Torres MD [address] [address] [place] [address] Consulting Physician Colon and Rectal Surgery 04/12/23
--- OUTSIDE RECORDS SUMMARY | 2025-04-17 13:42 | XMS_ITS | Encounter Summary ---
Author Organization [facility] Address [address] [place] [address] Phone Care Team Providers Care Psychological Aide Name Role Phone Troy Dunn MD Primary Care Provider [phone] Hussain Torres MD Unavailable Reason for Visit * Reason Comments Medication Refill Encounter Details Date Type Department Care Team (Late st Contact Info) Description 01/09/2024 [facility]ill [facility] - Family Medicine [facility] [address] [place] [address] Troy Dunn MD #[address] [address] Medication Refill Social History Tobacco Use Types Packs/Day Years Used Date Smoking Tobacco: Former Cigarettes 1 53.2 1 971 - 07/25/2023 Smokeless Tobacco: Never Comments:Quit for 18 years i n between Alcohol Use Standard Drinks/Week Comments Not Currently 0 (1 standard drink = 0.6 oz pur e alcohol) [facility] Utilities Answer Date Recorded In the past 12 months has [employer] electric, gas, oil, or water company threatened to shut off services in your home? No 04/28/2023 Social Connection and Isolation Panel Answer Date Recorded In a typical week, how many times do you talk on the phone with family, friends, or neighbors? 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 [address] [place] [address] PCP - General Family Medicine 12/28/22 Hussain Torres MD #2 [facility] [address] [place] [address] Consulting Physician Colon and Rectal Surgery 04/12/23 documented as of this encounter
--- OUTSIDE RECORDS SUMMARY | 2025-04-17 13:42 | XMS_ITS | Data Portability ---
Author Organization [facility] [employer], Main Office Address [address] [place] [address] Assessment No assessment recorded. Plan of Treatment Reminders Order Date Submit Date Provider Last Modified By Organization Details Last Modified Time Details Appointments None recorded. Lab CMP, serum or plasma 2022 023 [facility], [address], [place], [address], 3 10:16:23 CBC w/ auto diff 2022 023 [facility], [address], [place], [address], 3 10:16:23 TSH, serum or plasma 2022 023 [place] [address] [facility], [address], [place], [address], 3 10:16:23 T4, free, serum 2022 [address] [place] [address] [facility], [address], [place], [address], 3 10:16:23 Referral gynecologis t referral 2022 023 harvey Osman MD, [facility] [address], [place], [address], 3 14:19:29 cardiologis t referral 2022 023 ABBY Muñiz [place], [address] [facility], [address], [place], [address], 17:31:24 Procedures colonoscopy screening (PROC) 2022 023 [email or web address] Dutch Bravo MD, [address], [facility] [address], [place], [address], 3 10:17:10 Surgeries None recorded. Imaging None recorded. Medication Orders None recorded. Patient TargetsNo targets recorded. Patient InstructionsNo instructions recorded. Reason for Referral Form Building Supervisor Referral for Co ronary arteriosclerosis Referring Physician: Samy Spencer, Internal Medicine, Encounter Date: 07/15/2022 Duplicating Machine Operator Referral for Gy necologic examination Referring Physician: Samy Spencer, Internal Medicine, Encounter Date: 07/15/2022 Results Created Date Observation Date Name Description Value Unit Range Abnormal Flag Note LastModifiedBy Organization Detail LastModifiedTime 01/09/20 22 01/08/2022 MAMMO , scree nakita, digit al, bilat eral No observ ation record ed. [id number] [facility] Add On Lab Orders [address] [place], [address], 07/01/2022 01:33:59 01/09/20 22 01/08/2022 scree nakita breas t preet, bilat [facility] [place] [address] [facility] [place] [address] Patiperfecto t Name: ETHEL AVILA Access ion #: [id number] Sex: F : 1955 0 Locati [...] 2 [facility] Name: ETHEL AVILA Access ion #: [id number] Sex: F : 1955 0 Exam [...] MD (CT) (CT) Page 2 of 2 [id number] [facility] (Imaging) [address] [place], [address], 07/01/2022 01:33:59 01/09/20 22 01/08/2022 DEXA, axial skele ton No observ ation record ed. [id number] [facility] (One Call Scheduling) [address] [place], [address], 07/01/2022 01:33:59 01/09/20 22 01/08/2022 DEXA, axial skele ton [facility] [address] [facility] [place] [address] Patien t Name: ETHEL AVILA Access ion #: [id number] Sex: F : 1955 0 Locati on: RAD Attend ing Physic mairaelena: JACQUELINE HANSON Orderi ng Physic mariaelena: JACQUELINE [...] e of -1.0. Page 1 of 2 [facility] Patiperfecto t Name: ETHEL AVILA Access ion #: [id number] Sex: F : 1955 0 Exam [...] MD (CT) (CT) Page 2 of 2 [id number] [facility] (Imaging) [address] [place], [address], 07/01/2022 01:33:59 04/09/20 22 04/09/2022 US, thyro id No observ ation record ed. [id number] [facility] Add On Lab Orders [address] [place], [address], 07/01/2022 01:33:59 04/09/20 22 04/09/2022 MAMMO , diagn ostic , digit al, unila teral , w/ CAD [facility] [address] [place] [address] Patien t Name: ETHEL AVILA Access ion #: [id number] Sex: F : 1955 1 Locati [...] here. IMPRES ALAINA: Page 1 of 2 [facility] Jimmy wyatt Name: ETHEL AVILA Access ion #: [id number] Sex: F : 1955 1 Exam [...] ed prompt ly to the [facility] er. A negati ve mammog diamond [...] 10:53 AM (CT) Page 2 of 2 [id number] [facility] (Imaging) [address], [place], [address], 07/01/2022 01:33:59 04/09/20 22 04/09/2022 US, head + neck, soft tissu e [facility] [address], [place] [address] [phone] Patien t Name: ETHEL AVILA Access ion #: [id number] Sex: F : 1955 1 Locati [...] t. There are Page 1 of 2 [facility] [place] Pati edmundo Name: ETHEL AVILA Access ion #: [id number] Sex: F : 1955 1 Exam [...] 3:00 PM (CT) Page 2 of 2 MIGRATION.[id number] [facility] (Imaging) [address] [place], [address], 07/01/2022 01:33:59 09/03/19 23 09/02/2022 US, echoc ardio gram No observ ation record ed. roshan [facility] [address], [place], [address], 09/09/2022 13:16:35 09/03/19 23 09/02/2022 US, christiano de la cruz carot id arter y No observ ation record ed. roshan [facility] [address], [place], [address], 09/09/2022 13:16:36 11/21/19 24 11/21/2023 imagi ng/di agnos tic resul t No observ ation record ed. [facility] [address], [place], [address], 11/21/2023 13:46:36 11/21/19 24 11/21/2023 imagi ng/di agnos tic resul t No observ ation record ed. [facility] [address], [place], [address], 11/21/2023 14:04:28 Result Notes Documentation Provider Name and Address Organization Details Recorded Time Dexa, Axial Skeleton : [address] [address] Patient Name: ETHEL HOBSON Sex: F : 1955 Location: [facility] Attending Physician: SAMY SPENCER Ordering Physician: SAMY [...] T-score of -1.0. Page 1 of 2 [facility] Patient Name: ETHEL HOBSON Sex: F : [...] (CT) Page 2 of 2 Not Available [facility] 07/01/2022 01:33:59 Mammo, Diagnostic, Digital, Unilateral, W/ Cad : [address] [address] Patient Name: ETHEL HOBSON Sex: F : 1955 Location: [facility] Attending Physician: SAMY SPENCER Ordering Physician: SAMY [...] identified here. IMPRESSION: Page 1 of 2 [facility] Patient Name: ETHEL HOBSON Sex: F : 1955 Exam Date: 04/09/2022 10:36 AM Exam Name: MG MAMMO DIGITAL UNILAT RT Admitting Diagnosis(es): BI-RADS 1. Negative. Recommend returning to annual screening mammography. According to the [employer], yearly mammograms are recommended [...] (CT) Page 2 of 2 Not Available [facility] 07/01/2022 01:33:59 Problems Name Problem SNOMED Code Status Onset Date Resolution Date Notes Provider Name and Address Organization Details Recorded Time Mammography abnormal 631131762 Active 2021 Not Available [facility] 3 10:34:50 Hypothyroidis m 01027424 Active 2021 Not Available [facility] 3 10:34:50 Essential hypertension 92620699 Active 2022 Not Available [facility] 3 10:34:50 Hyperlipidemi a 84742414 Active 2022 Not Available [facility] 3 10:34:50 Chronic pain 60401152 Active 2022 Not Available [facility] 3 10:34:50 Coronary arteriosclero sis 31183474 Active 2022 Not Available [facility] 3 10:34:50 Moderate recurrent major depression 41851755 Active 2022 Not Available [facility] 3 10:34:50 Skin lesion 96164378 Active 2022 Not Available [facility] 10:34:50 Problem Notes None recorded. Procedures Surgical History Date Name Laterality Status Provider Name and Address Organization Details Recorded Time 03/17/20 excision of malignant neoplasm completed Not Available [facility] 07/01/2022 01:32:30 Appendectomy completed Not Available [facility] 07/01/2022 01:32:30 Cholecystectomy completed Not Available [facility] 07/01/2022 01:32:30 open heart surgery completed Not Available [facility] 07/01/2022 01:32:30 Carotid Endarterectomy completed Not Available [facility] 07/01/2022 01:32:30 Kidney completed Not Available [facility] 07/01/2022 01:32:30 section completed Not Available [facility] 07/01/2022 01:32:30 Imaging Results None recorded. Procedure [...] Updated DateTime 3 157.48 cm 30.5 kg/m2 38506.9 3 g 97.6 [degF] 72 /min 130/60 mm[Hg] [address] [place] [employer] [facility] 3 11:53:28 Date Recorded Body mass index (BMI) Body height Heart rate Body temperature Body weight Systolic And Diastolic Provider Name and Address Organization Details Last Updated DateTime 2 28.9 kg/m2 157.48 cm 72 /min 97.7 [degF] 11586.5 9 g 126/62 mm[Hg] Not Available [facility] 3 01:32:43 Date Recorded Body mass index (BMI) Body height Heart rate Body temperature Body weight Systolic And Diastolic Provider Name and Address Organization Details Last Updated DateTime 2 29.6 kg/m2 157.48 cm 78 /min 97.6 [degF] 39189.9 6 g 126/60 mm[Hg] Not Available [facility] 3 01:32:43 Social History Question Answer Notes LastModified by Organization Details LastModified Time Tobacco Smoking Status Current Every Day Smoker Not Available [facility] 07/01/2022 01:32:03 Do You Have An [...] While That Case Was Ill? No MIGRATION.0301 [id number] Information not available 07/01/2022 In The 14 Days Before Symptom Onset, Have You Had Close Contact With A Person Who Is Under Investigation For COVID-19 While That Person Was Ill? No MIGRATION.0301 770111 Information not available 07/01/2022 Are You Deaf Or Do You Have Serious Difficulty Hearing? No MIGRATION.0301 379880 Information not available 07/01/2022 What Type Of Diet Are You Following? REGULAR MIGRATION.0301 843107 Information not available 07/01/2022 What Is The Highest Grade Or Level Of School You Have Completed Or The Highest Degree You Have Received? [id number] MIGRATION.030 659617 Information not available 07/01/2022 Have There Been Any Changes To Your Family Or Social Situation? No MIGRATION.0301 175473 Information not available 07/01/2022 What Is The Fluoride Status Of Your Home? Unknown MIGRATION.0301 360441 Information not available 07/01/2022 Are There Any Guns Present In Your Home? Yes MIGRATION.0301 908621 Information not available 07/01/2022 Do You Use Insect Repellent Routinely? No MIGRATION.0301 971401 Information not available 07/01/2022 Where Do You Live? [place]House MIGRATION.0301 160509 Information not available 07/01/2022 Do You Have A Medical Power Of Mobile Battery Technician? No MIGRATION.0301 400226 Information not available 07/01/2022 What Was The Date Of Your Most Recent Tobacco Screening? 07/15/2022 Information not available 07/15/2022 Have You Ever Been Counseled For Unhealthy Alcohol Use? No MIGRATION.0301 572587 Information not available 07/01/2022 Do You Have Any Pets? No MIGRATION.0301 196106 Information not available 07/01/2022 What Is Your Relationship Status? MIGRATION.0301 204375 Information not available 07/01/2022 Do You Use Your Seat Belt Or Car Seat Routinely? Yes MIGRATION.0301 185494 Information not available 07/01/2022 Do You Have Smoke And Carbon Monoxide Detectors In Your Home? Yes MIGRATION.0301 524747 Information not available 07/01/2022 At What Age Did You Start Smoking Tobacco? 60 MIGRATION.0301 722381 Information not available 07/01/2022 Are You Passively Exposed To Smoke? Yes MIGRATION.0301 267109 Information not available 07/01/2022 Are There Any Smokers In Your House? Yes MIGRATION.0301 044945 Information not available 07/01/2022 How Much Tobacco Do You Smoke? 1 PPD Increased From 1/2ppd Information not available 07/15/2022 What Types Of Sporting Activities Do You Participate In? None MIGRATION.0301 785362 Information not available 07/01/2022 Do You Use Sunscreen Routinely? Yes MIGRATION.0301 995403 Information not available 07/01/2022 Have You Recently Traveled Abroad? No MIGRATION.0301 206789 Information not available 07/01/2022 Do You Have Difficulty Walking Or Climbing Stairs? No MIGRATION.0301 356442 Information not available 07/01/2022 Do You Have Any Dietary Restrictions? No MIGRATION.0301 224746 Information not available 07/01/2022 Sex: Female Functional Status Question Answer Note LastModified by [employer] Financial Corporationat ion Details LastModified Time Do you use any illicit or recreational drugs? No MIGRATION.4102689 026 Information not available 07/01/2022 Do you or have you ever used any other forms of tobacco or nicotine? No MIGRATION.8806977 026 Information not available 07/01/2022 What is your level of alcohol consumption? Occasional MIGRATION.7619451 026 Information not available 07/01/2022 Do you have transportation difficulties? No MIGRATION.1979040 026 Information not available 07/01/2022 Are you able to walk independently without assistance or assistive devices? YESWOREST MIGRATION.6772687 026 Information not available 07/01/2022 Do you have difficulty doing errands alone? No MIGRATION.4652532 026 Information not available 07/01/2022 Are you able to care for yourself independently? Yes MIGRATION.7806061 026 Information not available 07/01/2022 What is your occupation? [employer] MIGRATION.7851177 026 Information not available 07/01/2022 Do you have difficulty dressing, bathing, grooming, or toileting? No MIGRATION.6105198 026 Information not available 07/01/2022 What is your exercise level? Occasional MIGRATION.9375819 026 Information not available 07/01/2022 Mental Status Question Answer Note LastModified by Organizat ion Details LastModified Time Do you feel stressed (tense, restless, nervous, or anxious, or unable to sleep at night)? [id number] MIGRATION.37020683 26 Information not available 07/01/2022 Do you have difficulty concentrating, remembering or making decisions? No MIGRATION.89597646 26 Information not available 07/01/2022 Family History Relationship Description Onset Age of this Age Resolved Age Notes LastModified by Organization Details LastModified Time Mother Heart disease MIGRATION.209 2968539 Not available 07/01/2022 01:32:31 Brother Heart disease MIGRATION.946 4631159 Not available 07/01/2022 01:32:31 Brother Mesothelioma (malignant, clinical disorder) MIGRATION.502 1546095 Not available 07/01/2022 01:32:31 Sister Heart disease 2 sister s MIGRATION.761 6441024 Not available 07/01/2022 01:32:31 Sister Diabetes mellitus MIGRATION.675 6284258 Not available 07/01/2022 01:32:31 Maternal Grandmother Diabetes mellitus MIGRATION.802 6624165 Not available 07/01/2022 01:32:31 Paternal Grandmother Diabetes mellitus MIGRATION.477 7769643 Not available 07/01/2022 01:32:31 Medical History Condition [...] ARTERY DISEASE (CAD) Y ADDICTION CONCERNS N Impotence N ENDOMETRIOSIS N USE OF BLOOD THINNERS Y SKIN [...] GLAUCOMA N FOOT PROBLEM N DIVERTICULITIS N SLEEP APNEA N CHICKENPOX N INFECTIOUS DISEASE N PROSTATE N HEART ARRHYTHMIA N INSOMNIA N HIGH CHOLESTEROL / HYPERLIPIDEMIA Y EYE PROBLEMS N HYPERTHYROIDISM N EDEMA N CHRONIC PAIN SYNDROME Y HYPOTHYROIDISM N CONSTIPATION N CAROTID BLOCKAGE Y BACK / NECK PROBLEMS N ATHEROSCLEROSIS N BREAST PROBLEMS N DIALYSIS N ECZEMA N OSTEOPOROSIS N ARTHRITIS Y APPENDICITIS N DIABETES, TYPE N BAD TEETH N ENT N HEARTBURN / REFLUX N AUTISM SPECTRUM DISORDER (ASD) N HEPATITIS / LIVER DISEASE N GOUT N SLEEP DISORDER N ALZHEIMER'S DISEASE N Brain Problems N DEMENTIA N HERPES N SEIZURES/EPILEPSY N HEADACHES/MIGRAINES N VASCULAR DISEASE N PACEMAKER N Blood Disorder N DIZZINESS N HEART DISEASE/HEART PROBLEMS N KIDNEY DISEASE N MULTIPLE SCLEROSIS N CANCER: SPECIFY Y CARDIAC ARRHYTHMIA N ATRIAL FIBRILLATION N Gall Stones N PULMONARY EMBOLISM N AUTOIMMUNE DISEASE N Gynecological HistoryNo gynecological history recorded. Obstetrics History GPAL:G 0 P 0 0 0 0 Past Encounters Encounter ID Performer Location Encounter Start Date Encounter Closed Date Diagnosis/Indication Diagnosis SNOMED-CT Code Diagnosis ICD10 Code Diagnosis IMO Codes Diagnosis Note [id number] Samy de león MD [facility] Internal Med [facility] [[email or web address] [address] [place] [address]., [address] [address] 12/01/2021 00:00:00 12/01/2021 12:51:14 [id number] Samy de león MD [facility] Internal Med [address] [address] 03/18/2022 00:00:00 03/18/2022 12:23:48 [id number] Samy de león MD [facility] Internal Med [address], [address] [address] 07/15/2022 11:43:35 07/15/2022 12:15:56 Screening - NAD 288542354 Z13.9 C-scope: Get this done if not [...] understand ing of the above Essential hypertension 81843420 I10 On coreg 12.5mg bid, renewed 12/01/2021 On plavix 75mg dailyOn losartan 100mg daily Get labs Hyperlipidemia 72987662 E78.5 On crestor 20mg dailyOn zetia 10mg daily Get labs Chronic pain 65075332 G8 9.29 On hydrocodon e, given by her prior PCP, last filled on 11/17/2021 Advised that I am unable to fill any controlled medication s including opiatesShe must see pain management Not on hydrocodon e at this time 07/15/2022 Coronary arteriosclerosis 50253160 I25.10 S/p CABG and s/p stentsOn plavixGet a referral to Dr Muñiz [facility] Dr Muñiz [facility] 01/20/2022 , f/u in 6 months Moderate r ecurrent major depression 05743220 F33.1 On cymbalta 60mg dailyDoes well, renewed 12/01/2021 Not suicidal or homicidalD eclines any referrals to psychiatry Hypothyroidism 62892662 E03.9 Repeat the labsGet US thyroid Skin lesion 22598838 L98 .9 S/p surgery done by a derm at [place], [place], she made the apt her self Gynecologi c examination 36693696 Z01.419 Screening for malignant neoplasm of colon 078891749 Z12.11 Health Concerns Section Related Observation LastModified by Organization Detai ls LastModified Time None Recorded Concern Status LastModified by Organization Details LastModified Time None Recorded Advance Directives Directive N: Payers Insurance Date Sequence Insurance Name Policy Number Policy [place] Covered Member ID Sterling Member ID Guarantor Name 11/15/2022 1 [employer] (MEDICARE REPLACEMENT /ADVANTAGE - PPO) [id number] L Ethel Hobson [id number] Ethel Hobson Notes Date Note Type Note [...] well, no new labs Samy Spencer MD [address] [place] [address] Joanna, [facility] [address], [place], [address], [place] [facility] 07/15/2022 13:58:54 OBGyn Episode No OBEpisode recorded.
--- OUTSIDE RECORDS SUMMARY | 2025-04-17 13:42 | XMS_ITS | Encounter Summary ---
Author Organization [facility] Address [address] [place] [address] Phone Care Team Providers Care Ict Educator Name Role Phone Dwayne Torres MD Primary Care Provider [phone] Troy Dunn MD Primary Care Provider [phone] Hussain Torres MD Unavailable Reason for Visit * Reason Comments Medication Refill Encounter Details Date Type Department Care Team (Late st Contact Info) Description 05/22/2021 Refill [facility] - Primary Care - [place] [address] [place] [address] Kelsi Reyes MD [address] [place] [address] Medication Refill Social History Tobacco Use Types Packs/Day Years Used Date Smoking Tobacco: Every Day Cigarettes Smokeless Tobacco: Never Comments No Sex and Gender Information Value Date Recorded Sex Assigned at Not on file Legal 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 Gender Identity Not on file Sexual Orientation Not on file documented as of this encounter Miscellaneous Notes * Telephone Encounter - Yoko Dwyer RN - 05/22/2021 10:42 AM CST Pt pcp is Dwayne Torres MD R OPERATOR documented in this encounter Plan of Treatment Not on file documented as of this encounter Visit Diagnoses Not on filedocumented in this encounter Care Teams Ict Educator Relationship Specialty Start Date End Date Dwayne Torres MD [address] [place] [address] PCP - General Internal Medicine 05/21/19 12/27/22 Troy Dunn MD #2 [facility] [address] [place] [address] PCP - General Family Medicine 12/28/22 Hussain Torres MD #2 [facility] [address] [place] [address] Consulting Physician Colon and Rectal Surgery 04/12/23 documented as of this encounter
--- OUTSIDE RECORDS SUMMARY | 2025-04-17 13:42 | XMS_ITS | Encounter Summary ---
Author Organization [facility] Address [address] [place] [address] Phone Care Team Providers Care Splitting Machine Operator Helper Name Role Phone Dwayne Torres MD Primary Care Provider Troy Dunn MD Primary Care Provider [phone] Hussain Torres MD Unavailable Reason for Visit * Reason Comments Medication Refill Encounter Details Date Type Department Care Team (Late st Contact Info) Description 11/01/2020 Refill [facility] - Primary Care - [place] [id number] [place] [address] Ciera Munoz September, [address] [place], [place] [id number] Medication Refill Social History Tobacco Use Types Packs/Day Years Used Date Smoking Tobacco: Every Day Cigarettes Smokeless Tobacco: Never Comments No Sex and Gender Information Value Date Recorded Sex Assigned at Not on file Legal 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
--- OUTSIDE RECORDS SUMMARY | 2025-04-17 13:42 | XMS_ITS | Encounter Summary ---
Author Organization [facility] Address [address] [place] [address] Phone Care Team Providers Care Green Marketer Name Role Phone Allie Chong NP Primary Care Provider [phone] Encounter Details Date Type Department Care Team (Late st Contact Info) Description 08/02/2024 Telephone [facility] Medicine Cardiology [address] [facility] Advanced Medicine 8th [place] [address] [place] [address] Ana Waller Social History Tobacco [...] on file Legal Sex Female 12:36 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
--- OUTSIDE RECORDS SUMMARY | 2025-04-17 13:42 | XMS_ITS | Encounter Summary ---
Author Organization [facility] Address [address] [place] [address] Phone Care Team Providers Care Dining Chair Seat Cushion Trimmer Name Role Phone Dwayne Torres MD Primary Care Provider [phone] Troy Dunn MD Primary Care Provider [phone] Hussain Torres MD Unavailable Reason for Visit * Reason Comments Medication Refill Encounter Details Date Type Department Care Team (Late st Contact Info) Description 04/10/2021 Refill [facility] - Primary Care - [place] [address] [place] [address] Kelsi Reyes MD [address] [place] [address] Medication Refill Social History Tobacco Use Types Packs/Day Years Used Date Smoking Tobacco: Every Day Cigarettes Smokeless Tobacco: Never Comments No Sex and Gender Information Value Date Recorded Sex Assigned at Not on file Legal Sex Female 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 Gender Identity Not on file Sexual Orientation Not on file documented as of this encounter Plan of Treatment Not on file documented as of this encounter Visit Diagnoses Not on filedocumented in this encounter Care Teams Dining Chair Seat Cushion Trimmer Relationship Specialty Start Date End Date Dwayne Torres MD [address] [place] [address] PCP - General Internal Medicine 05/21/19 12/27/22 Troy Dunn MD [address] [facility] [address] [place] [address] PCP - General Family Medicine 12/28/22 Hussain Torres MD [address] [facility] [address] [place] [address] Consulting Physician Colon and Rectal Surgery 04/12/23 documented as of this encounter
--- OUTSIDE RECORDS SUMMARY | 2025-04-17 13:42 | XMS_ITS | Encounter Summary ---
Author Organization [facility] Address [address] [place] [address] Phone Care Team Providers Care Stripper Shovel Operator Name Role Phone Dwayne Torres MD Primary Care Provider [phone] Troy Dunn MD Primary Care Provider [phone] Hussain Torres MD Unavailable Reason for Visit * Reason Comments Medication Refill Encounter Details Date Type Department Care Team (Late st Contact Info) Description 01/12/[address] [facility] - Primary Care - [place] [address] [place] [address] Kelsi Reyes MD [address] [place] [address] Medication Refill Social History Tobacco Use Types Packs/Day Years Used Date Smoking Tobacco: Every Day Cigarettes Smokeless Tobacco: Never Comments No Sex and Gender Information Value Date Recorded Sex Assigned at Not on file Legal Sex Female 10:12 AM CELL LINER Gender Identity Not on file Sexual Orientation Not on file documented as of this encounter Plan of Treatment Not on file documented as of this encounter Visit Diagnoses Not on filedocumented in this encounter Care Teams Stripper Shovel Operator Relationship Specialty Start Date End Date Dwayne Torres MD [address] [place] [address] PCP - General Internal Medicine 05/21/19 12/27/22 Troy Dunn MD [address] [facility] [address] [place] [address] PCP - General Family Medicine 12/28/22 Hussain Torres MD [address] [facility] [address] [place] [address] Consulting Physician Colon and Rectal Surgery 04/12/23 documented as of this encounter
--- OUTSIDE RECORDS SUMMARY | 2025-04-17 13:42 | XMS_ITS | Encounter Summary ---
Author Organization [facility] Address [address] [place] [phone] Phone Care Team Providers Care Chip Drier Name Role Phone Dwayne Torres MD Primary Care Provider Troy Dunn MD Primary Care Provider [phone] Hussain Torres MD Unavailable Reason for Visit * Reason Comments Medication Refill Encounter Details Date Type Department Care Team (Late st Contact Info) Description 05/20/2021 Refill [facility] - Primary Care - [place] [address] [place] [address] Kelsi Reyes MD [address] [place] [address] Medication Refill Social History Tobacco Use Types Packs/Day Years Used Date Smoking Tobacco: Every Day Cigarettes Smokeless Tobacco: Never Comments No Sex and Gender Information Value Date Recorded Sex Assigned at Not on file Legal Sex Female 10:12 AM WARDROBE SUPERVISOR Gender Identity Not on file Sexual Orientation Not on file documented as of this encounter Miscellaneous Notes * Telephone Encounter - Laurel Del Rio RN - 05/21/2021 7:10 AM WARDROBE SUPERVISOR Refused- no PCP in this practice. ROBE SUPERVISOR documented in this encounter Plan of Treatment Not on file documented as of this encounter Visit Diagnoses Not on filedocumented in this encounter Care Teams Chip Drier Relationship Specialty Start Date End Date Dwayne Torres MD [address] [place] [address] PCP - General Internal Medicine 05/21/19 12/27/22 Troy Dunn MD [address] [facility] [address] [place] [address] PCP - General Family Medicine 12/28/22 Hussain Torres MD [address] [facility] [address] [place] [address] Consulting Physician Colon and Rectal Surgery 04/12/23 documented as of this encounter
--- OUTSIDE RECORDS SUMMARY | 2025-04-17 13:42 | XMS_ITS | Encounter Summary ---
Author Organization [facility] Address [address] [place] [address] Phone Care Team Providers Care Commercial Review Appraiser Name Role Phone Troy Dunn MD Primary Care Provider [phone] Hussain Torres MD Unavailable Reason for Visit * Reason Comments Medication Refill Encounter Details Date Type Department Care Team (Late st Contact Info) Description 09/30/2023 [facility]ill [facility] Family Medicine [facility] [address] [place] [address] Troy Dunn MD [address] [address] Medication Refill Social History Tobacco Use Types Packs/Day Years Used Date Smoking Tobacco: Former Cigarettes 1 53.2 1 971 - 07/25/2023 Smokeless Tobacco: Never Comments:Quit for 18 years i n between Alcohol Use Standard Drinks/Week Comments Not Currently 0 (1 standard drink = 0.6 oz pur e alcohol) [facility] Utilities Answer Date Recorded In the past 12 months has [employer] electric, gas, oil, or water company threatened to shut off services in your home? No 04/28/2023 Social Connection and Isolation Panel Answer Date Recorded In a typical week, how many times do you talk on the phone with family, friends, or neighbors? Twice a week 04/28/2023 Frequency of Social Gatherings with Friends and Family Not on file 04/28/2023 Attends Bahai Services Not on file 04/28 Active Member [...] Total Score - Questions 1-9 0 08/01 [facility] - Occupational Stress [...] on file Legal Sex Female 10:12 AM FUR FEEDER Gender Identity Not on file Sexual Orientation Not on file documented as of this encounter Miscellaneous Notes * Telephone Encounter - Roseline Eduardo RN - 09/30/2023 11:39 AM CDT Medication(s) refilled and signed per [facility] Chronic Medication Refill Standing Order for [...] [place] 12/28/22 Office Visit Troy Dunn MD [facility] Showing recent visits within past 365 [...] Troy Dunn MD [facility] Showing recent visits within past 365 [...] documented as of this encounter Care Teams Commercial Review Appraiser Relationship Specialty Start Date End Date Troy Dunn MD [address] [facility] [address] [place] [address] PCP - General Family Medicine 12/28/22 Hussain Torres MD [address] [facility] [address] [place] [address] Consulting Physician Colon and Rectal Surgery 04/12/23 documented as of this encounter
== END 2025-04-17 11:21 | disposition home or self-care (01) ==
PROVIDERS: PCP Nurse Practitioner Adult Health; Visit Provider Nurse Practitioner Adult Health
DX: N28.89 Other specified disorders of kidney and ureter (principal); N13.30 Unspecified hydronephrosis
CPT/HCPCS: 74183; A9577